=== PATIENT | female | born 1990 | race Caucasian/White ===

== ENCOUNTER 2019-12-13 11:00 | Outpatient (RCR) | payer OTHER, SELFPAY | END 2019-12-13 23:59 | disposition home or self-care (01) | LOC: DC 11:00 | PROVIDERS: PCP Obstetrics & Gynecology; Visit Provider Obstetrics & Gynecology | DX: Z71.3 Dietary counseling and surveillance (principal); O24.410 Gestational diabetes mellitus in pregnancy, diet controlled; Z3A.00 Weeks of gestation of pregnancy not specified | CPT/HCPCS: 97802; G0108 ==

== ENCOUNTER 2019-12-21 09:21 | Outpatient (RCR) | payer OTHER, SELFPAY | END 2020-01-12 23:59 | LOC: DC 09:21 | PROVIDERS: PCP Obstetrics & Gynecology; Visit Provider Obstetrics & Gynecology | DX: Z71.3 Dietary counseling and surveillance (principal) ==

== ENCOUNTER 2020-01-10 06:29 | Inpatient (IN) | payer OTHER, SELFPAY ==
[2020-01-10] VITALS (62 sets, daily range): BP systolic 107–174; BP diastolic 55–95; PULSE 72–110; TEMP 36.6–37.8; O2SAT 97–100; BMI 29.2
[2020-01-10] MEDS: Lactated Ringers 1,000 ML 50 ML IV (07:15)
[2020-01-10 07:16] LABS: Bedside Glucose 109 mg/dL (70-110)
[2020-01-10 07:51] LABS: Basophil# 0.04 X10^3/uL; Basophil% 0.4 % (0-1); Eosinophil# 0.17 X10^3/uL; Eosinophils% 1.7 % (0-5); Hematocrit 39.7 % (37-47); Hemoglobin 13.2 g/dL (12.0-15.0); Lymphocyte % 28.8 % (19-41); Mean Corp Hgb Conc 33.2 g/dL (32-36); Mean Corpuscular Hgb 28.1 pg (27.0-32.0); Mean Corpuscular Volume 84.5 fL (81-99); Mean Platelet Vol. 10.7 fl (6.2-12.0); Monocyte# 0.68 X10^3/uL; NRBC Flagged by Analyzer 0 % (0-5); Neutrophil # 5.97 X10^3/uL (2.7-7.7); Neutrophil % 61.4 % (47-70); Platelet Count 346 K/mm3 (150-450); RBC Distribution Width CV 15.6 % (11.6-14.6); RBC Distribution Width SD 47.9 fl (35.1-43.9); White Blood Count 9.7 K/mm3 (4.4-11.0)
[2020-01-10 07:54] LABS: ROM Internal Control Test YES-OK TO RESULT pt. (Internal QC)
[2020-01-10 07:56] LABS: ROM Patient Test POSITIVE (Negative)
[2020-01-10 08:00] LABS: AST(SGOT) 27 U/L (15-37); Alanine Aminotransfer ALT/SGPT 33 U/L (13-56); Creatinine, Serum 0.73 mg/dL (0.55-1.02); EST Glomerular Filtration Rate 101 mL/min (>60); Est Glom Filt Rate - Afr Amer 122 mL/min (>60); Estimated Creatinine Clearance 108.37 ml/min; Uric Acid 6.2 mg/dL (2.6-6.0)
[2020-01-10 08:02] LABS: Protein, Urine (Random) 69.1 mg/dL (<11.9); Protein:Creat Ratio 1795 mg/g CRE (0-200)
[2020-01-10 08:04] LABS: International Normalized Ratio 0.9
[2020-01-10 08:05] LABS: Partial Thromboplast Time 32.9 Seconds (24.1-36.2)
[2020-01-10 08:45] LABS: Group B Strep DNA By PCR Negative (Negative); Internal Control PASS; Probe Check PASS; Specimen Processing Control PASS
[2020-01-10] MEDS: Betamethasone/Betamethasone 30 MG/5 ML Vial 12 MG IM (08:54)
[2020-01-10] MEDS: Oxytocin 30 units/NS 500 ml 30 UNITS/500 ML IV.SOLN IV (09:10)
[2020-01-10 09:21] LABS: Bedside Glucose 122 mg/dL (70-110)
--- NOTE | 2020-01-10 10:20 | HP.PCM_ITS ---
- Problem List (1) 36 weeks gestation of Status: Acute (2) Rupture of membranes with clear amniotic fluid Status: Acute (3) Gestational diabetes Status: Acute Qualifiers: Gestational diabetes mellitus control: diet-controlled History Date of Admission: 01/10/20 Final EDIL: 02/06/20 Gestational age: 36 Weeks and 1 Days History of this : This is a 29 year-old, G [1], P [0], at 36.1 weeks gestational age that presented with S.R.O.M this morning at 0530. Continues to leak clear fluid. Positive movement. Denies any vaginal bleeding. complicated by GDM diet controlled. Allergies Sulfa (Sulfonamide Antibiotics) Allergy (Verified 01/10/20 07:22) Hives Home Medications: Home Medications Docosahexanoic Acid [ Dha] 200 mg PO DAILY 01/10/20 Ferrous Sulfate [Iron] 325 mg PO DAILY 01/10/20 Smoking Status: Never smoker Number of Fetus(es): 1 NST - FHR Rate Baby A Baseline: 140 Variability:: Moderate Accelerations:: 15 x 15 Decelerations:: None NST Reactive:: Yes FHR Category:: Category I Uterine Activity:: TOCO reading every 2-4 minutes History Past Pregnancies: Past Pregnancies Delivery Date Name GA/ Weeks Outcome Route Wt Infant Sex Labor Length Anesthesia Delivery Location Provider FOB Labs: A+ Rubella - Immune HB- neg HC- neg RPR- NR HIV- NR GC/CH- neg GBS- unknown COVID- 19 - unknown Review of Systems Constitutional: Denies: Anorexia Eyes: Denies: Blurred vision HEENT: Denies: Head Aches Cardiovascular: Denies: Chest Pain Respiratory: Denies: Cough, Shortness of Breath Gastrointestinal: Denies: Abdominal Pain Genitourinary: Denies: Dysuria Physical Exam Vitals: Vital Signs Temp Pulse BP Pulse Ox 98.8 F 92 118/75 98 01/10/20 10:01 01/10/20 10:01 01/10/20 10:01 01/10/20 10:01 General: Alert, Oriented x3, Cooperative, No apparent distress Cardiovascular: Regular rate Lungs: Normal air movement Abdomen: Soft, Non Tender, Gravid Neurological: Cranial nerves II-XII grossly intact, Deep Tendon Reflexes 2+/4 and Symmetrical Presentation: Cephalic Cervix Dilation (cm): 2 Station: -2 Effacement (%): 70 Assessment/Plan All Active Problems 36 weeks gestation of (Acute) Rupture of membranes with clear amniotic fluid (Acute) Gestational diabetes (Acute) This is a 29 year-old, G [1], P [0], at 36.1 weeks gestational age with S.R.O.M for clear fluid today at 0530 A/P Admit to labor and delivery Routine labs Rapid GBS GDM- follow protocol for bedside BS Celestone 12.0 mg IM x1 now Epidural when indicated Start PCN 5 million units IV now and continue with PCN 3 million units every 4 h ours until delivery- GBS unknown Start Pitocin infusion IV and titrate per protocol Dr. Barcenas notified and is collaborating physician until 11 am
--- NOTE | 2020-01-10 10:32 | OB.TRI.PN_ITS ---
Progress Notes Date of Service: 01/10/20 Progress Note: Patient seen at bedside. Denies any pain. Starting to feel contractions at times. CE- 2/70/-2 cervix soft NST reactive, Category 1 tracing A/P at 36.1 with SROM for clear fluid today at 0530 GDM- diet controlled Follow GDM policy Start Pitocin and titrate per protocol PCN 5 million units IV- running now Anticipate Laboratory Studies: Laboratory Tests 01/10/20 01/10/20 01/10/20 Range/Units 08:23 07:15 07:15 WBC (4.4-11.0) K/mm3 RBC (4.2-5.4) M/mm3 Hgb (12.0-15.0) g/dL Hct (37-47) % MCV (81-99) fL MCH (27.0-32.0) pg MCHC (32-36) g/dL RDW Std Deviation (35.1-43.9) fl RDW Coeff of Robert (11.6-14.6) % Plt Count (150-450) K/mm3 MPV (6.2-12.0) fl Immature Gran % (Auto) (0.0-0.9) % Neut % (Auto) (47-70) % Lymph % (Auto) (19-41) % [place] % (Auto) (0-10) % Eos % (Auto) (0-5) % Baso % (Auto) (0-1) % Absolute Neuts (auto) (2.0-7.7) X10^3/uL Absolute Lymphs (auto) (0.83-4.51) X10^3/uL Nucleated RBC % (0-5) % PT (11.7-14.9) SECONDS INR APTT (24.1-36.2) Seconds Creatinine (0.55-1.02) mg/dL Estim Creat Clear Calc ml/min Est GFR (MDRD) Af Amer (>60) mL/min Est GFR (MDRD) Non-Af (>60) mL/min Uric Acid (2.6-6.0) mg/dL AST (15-37) U/L ALT (13-56) U/L U Random Total Protein (<11.9) mg/dL Urine Creatinine (NO RANGE EST.) mg/dL Protein/Creatinin Ratio (0-200) mg/g CRE Vag Amniotic Fld Detect POSITIVE H (Negative) Group B Strep DNA Negative (Negative) Specimen Comment Not Reportable POC Glucose 122 H (70-110) mg/dL Blood Type Antibody Screen 01/10/20 01/10/20 01/10/20 Range/Units 07:15 07:15 07:15 WBC (4.4-11.0) K/mm3 RBC (4.2-5.4) M/mm3 Hgb (12.0-15.0) g/dL Hct (37-47) % MCV (81-99) fL MCH (27.0-32.0) pg MCHC (32-36) g/dL RDW Std Deviation (35.1-43.9) fl RDW Coeff of Robert (11.6-14.6) % Plt Count (150-450) K/mm3 MPV (6.2-12.0) fl Immature Gran % (Auto) (0.0-0.9) % Neut % (Auto) (47-70) % Lymph % (Auto) (19-41) % [place] % (Auto) (0-10) % Eos % (Auto) (0-5) % Baso % (Auto) (0-1) % Absolute Neuts (auto) (2.0-7.7) X10^3/uL Absolute Lymphs (auto) (0.83-4.51) X10^3/uL Nucleated RBC % (0-5) % PT 12.0 (11.7-14.9) SECONDS INR 0.9 APTT 32.9 (24.1-36.2) Seconds Creatinine 0.73 (0.55-1.02) mg/dL Estim Creat Clear Calc 108.37 ml/min Est GFR (MDRD) Af Amer 122 (>60) mL/min Est GFR (MDRD) Non-Af 101 (>60) mL/min Uric Acid 6.2 H (2.6-6.0) mg/dL AST 27 (15-37) U/L ALT 33 (13-56) U/L U Random Total Protein 69.1 H (<11.9) mg/dL Urine Creatinine 38.50 (NO RANGE EST.) mg/dL Protein/Creatinin Ratio 1795 H (0-200) mg/g CRE Vag Amniotic Fld Detect (Negative) Group B Strep DNA (Negative) Specimen Comment POC Glucose (70-110) mg/dL Blood Type Antibody Screen 01/10/20 01/10/20 01/10/20 Range/Units 07:15 07:15 07:11 WBC 9.7 (4.4-11.0) K/mm3 RBC 4.70 (4.2-5.4) M/mm3 Hgb 13.2 (12.0-15.0) g/dL Hct 39.7 (37-47) % MCV 84.5 (81-99) fL MCH 28.1 (27.0-32.0) pg MCHC 33.2 (32-36) g/dL RDW Std Deviation 47.9 H (35.1-43.9) fl RDW Coeff of Robert 15.6 H (11.6-14.6) % Plt Count 346 (150-450) K/mm3 MPV 10.7 (6.2-12.0) fl Immature Gran % (Auto) 0.700 (0.0-0.9) % Neut % (Auto) 61.4 (47-70) % Lymph % (Auto) 28.8 (19-41) % [place] % (Auto) 7.0 (0-10) % Eos % (Auto) 1.7 (0-5) % Baso % (Auto) 0.4 (0-1) % Absolute Neuts (auto) 6.0 (2.0-7.7) X10^3/uL Absolute Lymphs (auto) 2.80 (0.83-4.51) X10^3/uL Nucleated RBC % 0 (0-5) % PT (11.7-14.9) SECONDS INR APTT (24.1-36.2) Seconds Creatinine (0.55-1.02) mg/dL Estim Creat Clear Calc ml/min Est GFR (MDRD) Af Amer (>60) mL/min Est GFR (MDRD) Non-Af (>60) mL/min Uric Acid (2.6-6.0) mg/dL AST (15-37) U/L ALT (13-56) U/L U Random Total Protein (<11.9) mg/dL Urine Creatinine (NO RANGE EST.) mg/dL Protein/Creatinin Ratio (0-200) mg/g CRE Vag Amniotic Fld Detect (Negative) Group B Strep DNA (Negative) Specimen Comment POC Glucose 109 (70-110) mg/dL Blood Type A POSITIVE Antibody Screen NEGATIVE - Problem List (1) 36 weeks gestation of Status: Acute (2) Rupture of membranes with clear amniotic fluid Status: Acute (3) Gestational diabetes Status: Acute Qualifiers: Gestational diabetes mellitus control: diet-controlled
[2020-01-10 12:36] LABS: Bedside Glucose 100 mg/dL (70-110)
[2020-01-10] MEDS: Lactated Ringers 500 ML 999 ML IV (12:39)
--- NOTE | 2020-01-10 12:39 | PCM.PN.OB ---
Patient Problems: Active and Suspected Problems 36 weeks gestation of (Acute) Rupture of membranes with clear amniotic fluid (Acute) Gestational diabetes (Acute) Subjective: Patient seen at bedside. Breathing well through contractions. Starting to think about getting epidural. Objective: CE- /-1 Pitocin 10 mu/min Category 1 tracing, NST reactive - Physical Exam Vitals/I&O's: Vital Signs Temp Pulse BP Pulse Ox 98.0 F 79 139/81 H 97 01/10/20 11:58 01/10/20 11:58 01/10/20 11:58 01/10/20 11:58 Weight: 180 lb 12.465 oz Body Mass Index (BMI) 29.2 Intake and Output for Last 24 Hours 01/08/20 01/09/20 01/10/20 23:59 23:59 23:59 Intake Total 170.57 / 170.57 Balance 170.57 / 170.57 General: Alert, Oriented x3 Cardiovascular: Regular rate Abdomen: Soft, Non Tender Neurological: Cranial nerves II-XII grossly intact Laboratory Results 01/10/20 07:11: POC Glucose 109 01/10/20 07:15: WBC 9.7, RBC 4.70, Hgb 13.2, Hct 39.7, MCV 84.5, MCH 28.1, MCHC 33.2, RDW Std Deviation 47.9 H, RDW Coeff of Robert 15.6 H, Plt Count 346, MPV 10.7, Immature Gran % (Auto) 0.700, Neut % (Auto) 61.4, Lymph % (Auto) 28.8, [place] % (Auto) 7.0, Eos % (Auto) 1.7, Baso % (Auto) 0.4, Absolute Neuts (auto) 6.0, Absolute Lymphs (auto) 2.80, Nucleated RBC % 0 01/10/20 07:15: Blood Type A POSITIVE, Antibody Screen NEGATIVE 01/10/20 07:15: PT 12.0, INR 0.9, APTT 32.9 01/10/20 07:15: Creatinine 0.73, Estim Creat Clear Calc 108.37, Est GFR (MDRD) Af Amer 122, Est GFR (MDRD) Non-Af 101, Uric Acid 6.2 H, AST 27, ALT 33 01/10/20 07:15: U Random Total Protein 69.1 H, Urine Creatinine 38.50, Protein/Creatinin Ratio 1795 H 01/10/20 07:15: Group B Strep DNA Negative, Specimen Comment Not Reportable 01/10/20 07:15: Vag Amniotic Fld Detect POSITIVE H 01/10/20 08:23: POC Glucose 122 H 01/10/20 12:21: POC Glucose 100 Current Medications Acetaminophen (Tylenol) 325 - 650 mg PO Q4H PRN PRN PRN Reason: Pain Score 1-3/10 Al Hydroxide/Mg Hydroxide (Mylanta Ii) 15 - 30 ml PO Q4H PRN PRN PRN Reason: INDIGESTION Citric Acid/Sodium Citrate (Bicitra) 30 ml PO X1 PRN PRN Reason: Section Dextrose (D50w Syringe) 0 gm IV X1 PRN; Protocol PRN Reason: Hypoglycemia Fentanyl Citrate (Sublimaze (100mcg Ampule)) 25 - 50 mcg IV Q2H PRN PRN PRN Reason: Pain Score 4-10/10 Glucagon () 1 mg IM .X1 PRN PRN Reason: Hypoglycemia Lactated Ringer's () 500 mls @ 999 mls/hr IV .Q31M PRN PRN Reason: Epidural Lactated Ringer's () 500 mls @ 999 mls/hr IV .Q31M PRN PRN Reason: Corrective Measures Lactated Ringer's () 1,000 mls @ 50 mls/hr IV .Q20H [facility] Last Infusion: 01/10/20 09:08 Dose: 50 mls/hr Documented by: Oxytocin/Sodium Chloride () 30 units in 500 mls @ 2 mls/hr IV .Q250H [facility] Last Infusion: 01/10/20 11:38 Dose: 10 mls/hr Documented by: Ondansetron HCl (Zofran) 4 mg IV Q4H PRN PRN PRN Reason: NAUSEA Prochlorperazine Edisylate (Compazine Iv) 10 mg IV Q6H PRN PRN PRN Reason: NAUSEA Sodium Chloride () 10 - 40 ml IV X1 PRN PRN Reason: SALINE FLUSH Medical Necessity - Tobacco Use Smoking Status: Never smoker Assessment/Plan All Active Problems 36 weeks gestation of (Acute) Rupture of membranes with clear amniotic fluid (Acute) Gestational diabetes (Acute) A/P at 36.1 weeks gestation S.R.O.M today at 0530 Blood glucose levels- within normal range BPs ranging from 137-165/ 79-94- No headaches, vision changes, swelling Category 1 tracing NST reactive Pitocin at 10 mu/ min RAPID GBS - negative- discontinued PCN IV Epidural when indicated Anticipate
[2020-01-10] MEDS: fentaNYL-bupivacaine (epidural) 100 ML BAG EPIDURAL ×2 (13:38→18:16)
[2020-01-10] MEDS: Lactated Ringers 1,000 ML 200 ML IV (16:48)
[2020-01-10 18:36] LABS: Bedside Glucose 104 mg/dL (70-110)
[2020-01-10 18:36] LABS: Bedside Glucose 130 mg/dL (70-110)
--- NOTE | 2020-01-10 19:05 | PCM.PN.BLA ---
Progress Note Patient seen at bedside. Resting comfortably with epidural anesthesia. Denies any pain. Category 1 tracing CE- Dr. Sanchez updated. Plan is to recheck cervix in 30 minutes and begin pushing once complete STROKE Vital Signs/Narrative: Vital Signs Temp Pulse BP Pulse Ox 01/10/20 18:30 81 100 01/10/20 18:29 82 130/77 H 01/10/20 18:28 100.1 F H 01/10/20 17:27 82 139/75 H 01/10/20 16:33 89 99 01/10/20 16:32 89 128/73 H 01/10/20 15:26 79 108/55 L 01/10/20 15:25 98.8 F 98
[2020-01-10 21:06] LABS: Bedside Glucose 113 mg/dL (70-110)
[2020-01-10 21:06] LABS: Bedside Glucose 100 mg/dL (70-110)
[2020-01-10 21:11] LABS: Bedside Glucose 102 mg/dL (70-110)
[2020-01-10] MEDS: Oxytocin 30 units/NS 500 ml 30 UNITS/500 ML IV.SOLN 334 UNITS IV (21:58)
--- NOTE | 2020-01-10 22:12 | PCM.OPRPT ---
Vaginal Delivery Maternal Presentation: Spontaneous Rupture of Membranes Medical Reason for Induction: Preeclampsia, eclampsia, - - ROM at 36 weeks 1 Amniotic Membrane Rupture Type: Spontaneous at home Amniotic Fluid Description: Clear Final EDIL: 02/06/20 Final EDIL Source: [place] <20 weeks Gestational age: 36 Weeks and 1 Days Date of Procedure: 01/10/20 Pre-Operative Diagnosis: GDMA1, ruputure of membranes 36 weeks, PRE eclampsia without severe Post-Operative Diagnosis: same, live male infant Surgery/ Procedure Performed: Spontaneous Vaginal Delivery Type of Anesthesia: Epidural Description of Procedure: of live male born without complications at 9:55pm . head delivered with good maternal pushing efforts followed by shoulders with gentle downward traction. Infant was placed on mothers chest for immediate skin to skin and delayed cord clamping performed. 2nd degree vaginal laceration repaired with 2-0 vicryl and 3-0 rapide. Presentation: Vertex Placental Delivery Description: Spontaneous Placenta Disposition: [facility] Cord Vessel Description: 3 Vessels Nuchal Cord Compression: Without compression Cord Entanglement: None Drain: High to straight drain Estimated Blood Loss: 100 A gender: Male (1 minute): 7 (5 minute): 9 Episiotomy Description: None Laceration: Vaginal Extension/lac, 2nd degree Medications given after delivery: IV Pitocin Complications: None
[2020-01-11 00:12] VITALS: BP 117/66; PULSE 90; TEMP 36.7
[2020-01-11 00:41] LABS: Bedside Glucose 136 mg/dL (70-110)
[2020-01-11] MEDS: Ibuprofen 600 MG Tablet PO ×4 (00:50→18:42)
[2020-01-11 03:45] VITALS: BP 106/66; PULSE 78; RESP 16; TEMP 36.4
[2020-01-11 06:16] LABS: Bedside Glucose 146 mg/dL (70-110)
--- NOTE | 2020-01-11 07:15 | NURSING ---
pt reports never previously having flu shot
[2020-01-11 08:00] VITALS: BP 108/67; PULSE 85; RESP 16; TEMP 36.9
--- NOTE | 2020-01-11 08:32 | PCM.PN.OB ---
Patient Problems: Active and Suspected Problems 36 weeks gestation of (Acute) Rupture of membranes with clear amniotic fluid (Acute) Gestational diabetes (Acute) Subjective: Denies complaints - Physical Exam Vitals/I&O's: Vital Signs Temp Pulse Resp BP Pulse Ox 97.6 F L 78 16 106/66 98 01/11/20 03:45 01/11/20 03:45 01/11/20 03:45 01/11/20 03:45 01/10/20 22:13 Oxygen Delivery Method Room Air Weight: 180 lb 12.465 oz Body Mass Index (BMI) 29.2 Intake and Output for Last 24 Hours 01/09/20 01/10/20 01/11/20 23:59 23:59 23:59 Intake Total 3455.11 / 3455.11 333 / 333 Output Total 700 / 700 1700 / 1700 Balance 2755.11 / 2755.11 -1367 / -1367 General: Alert, Oriented x3 Abdomen: Soft, Non Tender, Non-Distended - ff mid & below umb Extremities: No Calf Tenderness Laboratory Results 01/10/20 07:15: Blood Type A POSITIVE, Antibody Screen NEGATIVE 01/10/20 07:15: Group B Strep DNA Negative, Specimen Comment Not Reportable 01/10/20 08:23: POC Glucose 122 H 01/10/20 12:21: POC Glucose 100 01/10/20 16:25: POC Glucose 104 01/10/20 17:25: POC Glucose 130 H 01/10/20 18:33: POC Glucose 113 H 01/10/20 19:25: POC Glucose 100 01/10/20 21:05: POC Glucose 102 01/11/20 00:15: POC Glucose 136 H 01/11/20 05:55: POC Glucose 146 H Current Medications Acetaminophen (Tylenol) 1,000 mg PO Q8H PRN PRN PRN Reason: Pain Score 1-3/10 Bisacodyl (Dulcolax) 10 mg RECTAL UD PRN PRN Reason: If no BM Dibucaine (Dibucaine) 1 applic TOPICAL TID PRN PRN; Protocol PRN Reason: Discomfort Hydrocortisone (Hytone) 1 applic TOPICAL TID PRN PRN; Protocol PRN Reason: Discomfort Ibuprofen (Motrin) 600 mg PO Q6H PRN PRN PRN Reason: Pain Score 1-3/10 Last Admin: 01/11/20 07:18 Dose: 600 mg Documented by: Influenza Virus Vaccine Quadrival (Flucelvax /Fluzone ) 0.5 ml IM .ONCE ONE Stop: 01/11/20 10:01 Methylergonovine Maleate (Methergine) 0.2 mg IM X1 PRN PRN Reason: Excess bleeding/uterine atony Ondansetron HCl (Zofran) 4 mg IV Q4H PRN PRN PRN Reason: Nausea Oxycodone HCl (Oxyir) 5 - 10 mg PO Q4H PRN PRN PRN Reason: Pain Score 4-10/10 Senna/Docusate Sodium (Senokot-S, Vaishnavi-Colace) 1 - 2 tablet PO DAILY PRN PRN PRN Reason: Constipation Simethicone (Mylicon) 80 mg PO PCHS PRN PRN Reason: Indigestion/Stomach pain Sodium Chloride () 5 - 15 ml IV UD PRN PRN Reason: SALINE FLUSH Medical Necessity - Tobacco Use Smoking Status: Never smoker Assessment/Plan All Active Problems 36 weeks gestation of (Acute) Rupture of membranes with clear amniotic fluid (Acute) Gestational diabetes (Acute) PPD#1 PreE - BP's normal since delivery, no preE symptoms Routine care GDM - repeat FBS in am tomorrow as today's BS was 30 minutes after eating cereal
[2020-01-11 12:00] VITALS: BP 116/83; PULSE 80; RESP 16; TEMP 36.6
[2020-01-11] MEDS: Acetaminophen 500 MG Tablet 1000 MG PO ×2 (14:33→23:07)
[2020-01-11 16:20] VITALS: BP 117/65; PULSE 76; RESP 16; TEMP 36.7
[2020-01-11 20:20] VITALS: BP 121/78; PULSE 77; RESP 16; TEMP 36.6
[2020-01-12 02:48] VITALS: BP 124/72; PULSE 92; RESP 16; TEMP 37.1
[2020-01-12] MEDS: Ibuprofen 600 MG Tablet PO ×2 (02:52→14:19)
[2020-01-12 05:45] LABS: Bedside Glucose 77 mg/dL (70-110)
--- NOTE | 2020-01-12 06:58 | DCINST_ITS ---
Discharge Diet: No Restrictions Discharge Activity: May Drive, May Shower May resume sexual activity in: 6 weeks Additional Instructions: If you experience any of the following, contact your healthcare provider. * Bleeding that soaks a pad every hour for 2 hours * Fever 100.4 or higher * Unrelieved incision or abdominal pain * Swelling, redness, discharge or bleeding from your incision or episiotomy site * Your incision begins to separate * Problems urinating (including inability to urinate or burning while urinating). * Visual changes * Severe headache * Flu-like symptoms * Pain or redness in one of both of your breasts * Pain, warmth, tenderness or swelling in your legs, especially the calf area * Frequent nausea and vomiting * Symptoms of depression or anxiety If you experience any of the following, call 911 or go to the nearest Emergency Room. * Chest pain * Problems breathing * Seizure activity * Partial or complete paralysis of a body part, slurred speech, weakness or drooping of the face, or a sudden inability to walk or hold your balance * * Call or message the office with our BP's on FridayJanuary 16. Allergies/Adverse Reactions: Allergies Sulfa (Sulfonamide Antibiotics) Allergy (Verified 01/10/20 07:22) Hives Medications to take at Discharge Docosahexanoic Acid [ Dha] 200 mg PO DAILY 01/10/20 Ferrous Sulfate [Iron] 325 mg PO DAILY 01/10/20 Acetaminophen [Tylenol] 1,000 mg PO Q8H PRN PRN tablet 01/12/20 Ibuprofen [Motrin] 600 mg PO Q6H PRN PRN tablet 01/12/20 Primary Care Physician: aKthy Vyas MD [Primary Care Provider] - Test Results: Test results from this visit will be discussed in further detail at your follow- up appointment, if applicable.
--- NOTE | 2020-01-12 06:58 | PCM.DCVAG ---
Discharge Diet: No Restrictions Discharge Activity: May Drive, May Shower May resume sexual activity in: 6 weeks Additional Instructions: If you experience any of the following, contact your healthcare provider. Bleeding that soaks a pad every hour for 2 hours Fever 100.4 or higher Unrelieved incision or abdominal pain Swelling, redness, discharge or bleeding from your incision or episiotomy site Your incision begins to separate Problems urinating (including inability to urinate or burning while urinating). Visual changes Severe headache Flu-like symptoms Pain or redness in one of both of your breasts Pain, warmth, tenderness or swelling in your legs, especially the calf area Frequent nausea and vomiting Symptoms of depression or anxiety If you experience any of the following, call 911 or go to the nearest Emergency Room. Chest pain Problems breathing Seizure activity Partial or complete paralysis of a body part, slurred speech, weakness or drooping of the face, or a sudden inability to walk or hold your balance Call or message the office with our BP's on FridayJanuary 16. Allergies/Adverse Reactions: Allergies Sulfa (Sulfonamide Antibiotics) Allergy (Verified 01/10/20 07:22) Hives Medications to take at Discharge Docosahexanoic Acid [ Dha] 200 mg PO DAILY 01/10/20 Ferrous Sulfate [Iron] 325 mg PO DAILY 01/10/20 Acetaminophen [Tylenol] 1,000 mg PO Q8H PRN PRN tablet 01/12/20 Ibuprofen [Motrin] 600 mg PO Q6H PRN PRN tablet 01/12/20 Primary Care Physician: Kathy yVas MD [Primary Care Provider] - Test Results: Test results from this visit will be discussed in further detail at your follow-up appointment, if applicable.
--- NOTE | 2020-01-12 06:59 | PCM.PN.OB ---
Patient Problems: Active and Suspected Problems 36 weeks gestation of (Acute) Rupture of membranes with clear amniotic fluid (Acute) Gestational diabetes (Acute) Subjective: No complaints. - Physical Exam Vitals/I&O's: Vital Signs Temp Pulse Resp BP Pulse Ox 98.7 F 92 16 124/72 H 98 01/12/20 02:48 01/12/20 02:48 01/12/20 02:48 01/12/20 02:48 01/10/20 22:13 Oxygen Delivery Method Room Air Weight: 180 lb 12.465 oz Body Mass Index (BMI) 29.2 Intake and Output for Last 24 Hours 01/10/20 01/11/20 01/12/20 23:59 23:59 23:59 Intake Total 3455.11 / 3455.11 333 / 333 Output Total 700 / 700 1700 / 1700 Balance 2755.11 / 2755.11 -1367 / -1367 General: Alert, Oriented x3 Abdomen: Soft, Non Tender, Non-Distended - ff mid & below umb Extremities: No Calf Tenderness Neurological: Cranial nerves II-XII grossly intact Laboratory Results 01/12/20 05:40: POC Glucose 77 Current Medications Acetaminophen (Tylenol) 1,000 mg PO Q8H PRN PRN PRN Reason: Pain Score 1-3/10 Last Admin: 01/11/20 23:07 Dose: 1,000 mg Documented by: Bisacodyl (Dulcolax) 10 mg RECTAL UD PRN PRN Reason: If no BM Dibucaine (Dibucaine) 1 applic TOPICAL TID PRN PRN; Protocol PRN Reason: Discomfort Hydrocortisone (Hytone) 1 applic TOPICAL TID PRN PRN; Protocol PRN Reason: Discomfort Ibuprofen (Motrin) 600 mg PO Q6H PRN PRN PRN Reason: Pain Score 1-3/10 Last Admin: 01/12/20 02:52 Dose: 600 mg Documented by: Methylergonovine Maleate (Methergine) 0.2 mg IM X1 PRN PRN Reason: Excess bleeding/uterine atony Ondansetron HCl (Zofran) 4 mg IV Q4H PRN PRN PRN Reason: Nausea Oxycodone HCl (Oxyir) 5 - 10 mg PO Q4H PRN PRN PRN Reason: Pain Score 4-10/10 Senna/Docusate Sodium (Senokot-S, Vaishnavi-Colace) 1 - 2 tablet PO DAILY PRN PRN PRN Reason: Constipation Simethicone (Mylicon) 80 mg PO PCHS PRN PRN Reason: Indigestion/Stomach pain Sodium Chloride () 5 - 15 ml IV UD PRN PRN Reason: SALINE FLUSH Medical Necessity - Tobacco Use Smoking Status: Never smoker Assessment/Plan All Active Problems 36 weeks gestation of (Acute) Rupture of membranes with clear amniotic fluid (Acute) Gestational diabetes (Acute) PPD#2 PreE - BP's normal, patient will check BP daily at home GDM - FBS this am normal D/c to hotel later today at baby in [place]
[2020-01-12] MEDS: Acetaminophen 500 MG Tablet 1000 MG PO ×2 (07:27→17:43)
[2020-01-12] MEDS: Senna/Docusate Sodium 1 Tablet PO (07:28)
[2020-01-12 07:38] VITALS: BP 124/86; PULSE 75; RESP 18; TEMP 36.7
[2020-01-12 14:00] VITALS: BP 132/85; PULSE 78; RESP 18; TEMP 36.4
== END 2020-01-12 18:00 | disposition home or self-care (01) | DRG 807 ==
PROVIDERS: Obstetrics & Gynecology; Admitting Provider Obstetrics & Gynecology; PCP Family Medicine; Referring Provider Obstetrics & Gynecology; Visit Provider Obstetrics & Gynecology
DX: O60.14X0 Preterm labor third trimester with preterm delivery third trimester, not applicable or unspecified (principal); O24.420 Gestational diabetes mellitus in childbirth, diet controlled; O69.81X0 Labor and delivery complicated by cord around neck, without compression, not applicable or unspecified; O14.04 Mild to moderate pre-eclampsia, complicating childbirth; O70.1 Second degree perineal laceration during delivery; Z3A.36 36 weeks gestation of pregnancy; Z37.0 Single live birth
CPT/HCPCS: 59025; 59050; 82565; 82570; 82962; 84112; 84156; 84450; 84460; 84550; 85025; 85610; 85730; 86850; 86900; 86901; 87081; 87653; 99218; J7120; 90686; G0378; J0702

== ENCOUNTER 2021-12-06 17:20 | Outpatient (CLI) | payer OTHER, SELFPAY ==
[2021-12-06 17:42] VITALS: BMI 28.3
[2021-12-06 17:44] VITALS: BP 139/85; PULSE 85
[2021-12-06 17:45] VITALS: PULSE 91; O2SAT 98
[2021-12-06 18:11] LABS: Absolute Lymphocyte Count 1.96 X10^3/uL (0.83-4.51); Absolute Neutrophil Count 6.1 X10^3/uL (2.0-7.7); Basophil# 0.02 X10^3/uL; Basophil% 0.2 % (0-1); Eosinophil# 0.19 X10^3/uL; Eosinophils% 2.1 % (0-5); Hematocrit 36.1 % (37-47); Hemoglobin 11.8 g/dL (12.0-15.0); Lymphocyte # 1.96 X10^3/ul (0.83-4.51); Lymphocyte % 22.1 % (19-41); Mean Corp Hgb Conc 32.7 g/dL (32-36); Mean Corpuscular Hgb 27.1 pg (27.0-32.0); Mean Corpuscular Volume 82.8 fL (81-99); Mean Platelet Vol. 9.6 fl (6.2-12.0); Monocyte# 0.63 X10^3/uL; Monocyte% 7.1 % (0-10); NRBC Flagged by Analyzer 0 % (0-5); Neutrophil # 6.05 X10^3/uL (2.7-7.7); Neutrophil % 68.3 % (47-70); Platelet Count 325 K/mm3 (150-450); RBC Distribution Width CV 15.9 % (11.6-14.6); RBC Distribution Width SD 48.2 fl (35.1-43.9); Red Blood Count 4.36 M/mm3 (4.2-5.4); White Blood Count 8.9 K/mm3 (4.4-11.0)
[2021-12-06] MEDS: BACITRACIN 15 GM Tube 1 APPLIC TOPICAL (18:54)
[2021-12-06 19:08] LABS: Fibrinogen 471 mg/dl (203-444); Prothrombin Time (Protime)PT. 13.3 SECONDS (11.7-14.9)
--- NOTE | 2021-12-14 10:08 | OB.TRI.NOTE ---
HPI - General General Date of Service: 12/06/21 Chief Complaint: fall HPI Narrative HERB MORAN, is a 1 at 34-6/7 weeks who fell at home. Patient denied being pushed. She arrived to labor and delivery for evaluation [facility] Home Medications ferrous sulfate 325 mg (65 mg iron) tablet 325 mg PO DAILY anemia 01/10/20 [History Last Taken 01/09/20] aspirin 81 mg capsule mg 12/06/21 [History Last Taken Unknown] progesterone 50 mg/mL intramuscular oil mg IM 12/06/21 [History Last Taken Unknown] Allergy/AdvReac Type Severity Reaction Status Date / Time Sulfa (Sulfonamide Allergy Hives Verified 12/06/21 17:42 Antibiotics) Social History Smoking Status: Never smoker History Elective abortions Hx Para 0 Spontaneous abortions Hx # Term Pregnancies Ectopic pregnancies Hx # Pregnancies Multiple births # of living children NST FHR Rate Baby A Baseline: 140 Variability:: Moderate Accelerations:: 15 x 15 Decelerations:: None NST Reactive:: Yes FHR Category:: Category I Uterine Activity:: irreg ctxs Assessment & Plan (1) 34 weeks gestation of : (2) Fall at home: PLAN: Plan 34 week multigravida s/p fall at home. FHTs reassuring. A+ blood type. D/[place] home w/ routine follow up or return prn.
== END 2021-12-06 21:45 | disposition home or self-care (01) ==
LOC: WPOUT 17:32 → WP 17:32
PROVIDERS: PCP Family Medicine; Referring Provider Obstetrics & Gynecology; Visit Provider Obstetrics & Gynecology
DX: Z04.3 Encounter for examination and observation following other accident (principal); Z3A.34 34 weeks gestation of pregnancy; Z79.82 Long term (current) use of aspirin
CPT/HCPCS: 36415; 59025; 59050; 85025; 85384; 85610; 85730; 86850; 86900; 86901; 99218; G0378

== ENCOUNTER 2022-01-04 06:50 | Inpatient (IN) | payer OTHER, SELFPAY ==
[2022-01-04] VITALS (35 sets, daily range): BP systolic 112–152; BP diastolic 60–101; PULSE 85–113; RESP 16; TEMP 36.7–37.6; O2SAT 97–100; BMI 28.7
[2022-01-04] MEDS: Lactated Ringers 1,000 ML 50 ML IV (07:40)
[2022-01-04 08:01] LABS: Absolute Lymphocyte Count 1.74 X10^3/uL (0.83-4.51); Absolute Neutrophil Count 8.3 X10^3/uL (2.0-7.7); Basophil# 0.02 X10^3/uL; Basophil% 0.2 % (0-1); Eosinophil# 0.17 X10^3/uL; Eosinophils% 1.5 % (0-5); Hematocrit 36.3 % (37-47); Lymphocyte # 1.74 X10^3/ul (0.83-4.51); Lymphocyte % 15.9 % (19-41); Mean Corp Hgb Conc 33.1 g/dL (32-36); Mean Corpuscular Hgb 27.6 pg (27.0-32.0); Mean Corpuscular Volume 83.6 fL (81-99); Mean Platelet Vol. 10.3 fl (6.2-12.0); Monocyte# 0.71 X10^3/uL; Monocyte% 6.5 % (0-10); NRBC Flagged by Analyzer 0 % (0-5); Neutrophil # 8.28 X10^3/uL (2.7-7.7); Neutrophil % 75.4 % (47-70); Platelet Count 290 K/mm3 (150-450); RBC Distribution Width CV 15.9 % (11.6-14.6); RBC Distribution Width SD 47.8 fl (35.1-43.9); Red Blood Count 4.34 M/mm3 (4.2-5.4)
[2022-01-04] MEDS: 0.9% Normal Saline Single 100 ML IV.SOLN. INTRA-UTER (08:07)
[2022-01-04] MEDS: Oxytocin 30 units/NS 500 ml 30 UNITS/500 ML IV.SOLN IV (08:16)
[2022-01-04 10:16] LABS: Bedside Glucose 84 mg/dL (74-106)
[2022-01-04] MEDS: LACTATED RINGERS 500 ML 999 ML IV (10:55)
[2022-01-04] MEDS: fentaNYL-bupivacaine (epidural) 100 ML BAG EPIDURAL (11:34)
[2022-01-04 12:00] LABS: Bedside Glucose 80 mg/dL (74-106)
[2022-01-04 14:35] LABS: Bedside Glucose 92 mg/dL (74-106)
[2022-01-04 14:35] LABS: Bedside Glucose 94 mg/dL (74-106)
--- NOTE | 2022-01-04 15:44 | HP.PCM.OB_ITS ---
[facility] - General General Date of Admission: 01/04/22 Date of Service: 01/04/22 Chief Complaint: induction HPI Narrative HERB MORAN, is a 31-year-old 2 para 0-1-0-1 who presents at 39 weeks with EDC of 01/11/2022 for induction of labor due to gestational diabetes. Is diet controlled and she has had excellent control. She also has a history of preeclampsia and she has had some increased edema and her blood pressures are trending up. However she does not have any official diagnosis of gestational hypertension or preeclampsia during this . was complicated to date by history of delivery, gestational diabetes class A1 and anemia. Maternal Data Information Final EDIL: 01/11/22 Gestational age: 41 PFSH [facility] Medical History (Updated 01/04/22 @ 15:[address] Gregoria Barcenas MD) Gestational diabetes History of premature rupture of membranes (PPROM) Pre-eclampsia Home Medications ferrous sulfate 325 mg (65 mg iron) tablet 325 mg PO DAILY anemia 01/10/20 [History Last Taken 01/09/20] aspirin 81 mg capsule mg 12/06/21 [History Last Taken Unknown] 01/04/22 [History Last Taken Unknown] Allergy/AdvReac Type Severity Reaction Status Date / Time Sulfa (Sulfonamide Allergy Hives Verified 01/04/22 07:15 Antibiotics) Social History Smoking Status: Never smoker History Elective abortions Hx Para 1 Spontaneous abortions Hx # Term Pregnancies Ectopic pregnancies Hx # Pregnancies Multiple births # of living children ROS Constitutional Constitutional: Denies fatigue, fever(s) or malaise Eyes Eyes: Denies change in vision ENT HEENT: Denies dizziness or headache(s) Cardiovascular Cardiovascular: Denies chest pain, dyspnea or lightheadedness Respiratory/Chest Respiratory/Chest: Denies cough or dyspnea Gastrointestinal Gastrointestinal: Denies change in bowel habits Genitourinary Genitourinary: Denies burning urination or genital lesions Integumentary Integumentary: Denies rash Neurologic Neurologic: Denies confusion, dizziness, headache(s), numbness or weakness Vital Signs Vital Signs Vital Signs: 01/04/22 07:56 01/04/22 07:56 01/04/22 07:57 Temperature Pulse Rate 102 H 92 Blood Pressure 141/91 H BP Systolic 141 BP Diastolic 91 Pulse Ox 01/04/22 07:57 01/04/22 08:11 01/04/22 08:51 Temperature 98.4 F Pulse Rate Blood Pressure 135/79 H BP Systolic 135 BP Diastolic 79 Pulse Ox 99 01/04/22 08:51 01/04/22 08:52 01/04/22 09:52 Temperature 98.4 F Pulse Rate 93 Blood Pressure 145/78 H BP Systolic 145 BP Diastolic 78 Pulse Ox 01/04/22 09:53 01/04/22 09:53 01/04/22 11:20 Temperature Pulse Rate 85 91 Blood Pressure BP Systolic BP Diastolic Pulse Ox 97 01/04/22 11:20 01/04/22 11:25 01/04/22 11:25 Temperature Pulse Rate 89 Blood Pressure 152/89 H BP Systolic 152 BP Diastolic 89 Pulse Ox 98 01/04/22 11:25 01/04/22 11:29 01/04/22 11:29 Temperature Pulse Rate 93 Blood Pressure 147/86 H BP Systolic 147 BP Diastolic 86 Pulse Ox 97 01/04/22 11:30 01/04/22 11:30 01/04/22 11:34 Temperature Pulse Rate 85 Blood Pressure 139/101 H BP Systolic 139 BP Diastolic 101 Pulse Ox 99 01/04/22 11:34 01/04/22 11:35 01/04/22 11:35 Temperature Pulse Rate 99 87 Blood Pressure BP Systolic BP Diastolic Pulse Ox 98 01/04/22 11:39 01/04/22 11:40 01/04/22 11:40 Temperature Pulse Rate 87 Blood Pressure 139/91 H BP Systolic 139 BP Diastolic 91 Pulse Ox 99 01/04/22 11:44 01/04/22 11:45 01/04/22 11:45 Temperature Pulse Rate 86 Blood Pressure 135/95 H BP Systolic 135 BP Diastolic 95 Pulse Ox 100 01/04/22 11:49 01/04/22 11:49 01/04/22 11:50 Temperature Pulse Rate 88 87 Blood Pressure 140/85 H BP Systolic 140 BP Diastolic 85 Pulse Ox 01/04/22 11:50 01/04/22 11:54 01/04/22 11:54 Temperature Pulse Rate 86 Blood Pressure 136/87 H BP Systolic 136 BP Diastolic 87 Pulse Ox 100 01/04/22 11:55 01/04/22 11:55 01/04/22 12:55 Temperature Pulse Rate 86 Blood Pressure 132/90 H BP Systolic 132 BP Diastolic 90 Pulse Ox 100 01/04/22 12:55 01/04/22 14:12 01/04/22 14:12 Temperature Pulse Rate 89 93 Blood Pressure 140/79 H BP Systolic 140 BP Diastolic 79 Pulse Ox 01/04/22 14:13 01/04/22 15:37 01/04/22 15:37 Temperature 98.1 F Pulse Rate 108 H Blood Pressure 126/68 H BP Systolic 126 BP Diastolic 68 Pulse Ox 01/04/22 15:37 Temperature 98.4 F Pulse Rate Blood Pressure BP Systolic BP Diastolic Pulse Ox Weight Weight: 80.739 kg Body Mass Index (BMI) 28.7 Physical Exam Const alert and no apparent distress General Appearance: cooperative HEENT normocephalic Resp normal respiratory effort Cardio regular rate GI soft to palpation GI Narrative: gravid, nontender, appropriate for gestational age Extremity no calf tenderness General Extremity: edema Skin no wounds Rashes: No rashes noted Psych activity/motor behavior normal Labs Labs Labs: Blood Type A POSITIVE Antibody Screen NEGATIVE Hct 36.3 % (37-47) L Hgb 12.0 g/dL (12.0-15.0) Group B Strep DNA Negative (Negative) Rhogam given: No Assessment & Plan (1) 39 weeks gestation of : PLAN: Estimated weight is less than 4500 g clinically and pelvis clinically adequate to expect vaginal delivery. Risk benefits and alternatives to induction of labor him discussed with patient, her questions were answered to her satisfaction and she desired to proceed. High catheter was placed this morning by Zahira Torres CNM. Pitocin was initiated. Expectant management for vaginal delivery (2) GDM, class A1: (3) Multiparity:
[2022-01-04] MEDS: Oxytocin 30 units/NS 500 ml 30 UNITS/500 ML IV.SOLN 334 UNITS IV (16:10)
--- NOTE | 2022-01-04 16:29 | EX.PCM.OBRPT ---
Assessment & Plan (1) (spontaneous vaginal delivery): Maternal Data Information Final EDIL: 01/11/22 Gestational age: 41 Vaginal Delivery Operative Information Date of Procedure: 01/04/22 Pre-Operative Diagnosis: labor Post-Operative Diagnosis: same Surgery / Procedure Performed: Spontaneous Vaginal Delivery Type of Anesthesia: Epidural Special Medications: none Drain: High to straight drain Estimated Blood Loss: 300 Time of Delivery: 16:07 Findings Description of Procedure: A vigorous male was delivered SD over a second-degree perineal laceration. A loose nuchal cord ?1 was easily reduced. The remainder the was delivered with maternal pushing and gentle traction only in less than 15 seconds. The Pitocin infusion was initiated for active management of the third stage. The cord was clamped and cut after 1 minute. The infant was attended to by the waiting nursing staff. The placenta was delivered spontaneously and intact. The cervix and vagina were intact. The second-degree perineal laceration was repaired with 3-0 Vicryl suture in a running standard fashion. Sponge and needle counts were correct. A vaginal sweep was completed by me. Presentation: SD Amniotic Membrane Rupture Type: Artificial Amniotic Fluid Description: Clear Placental Delivery Description: Expressed Placenta Disposition: [facility] Cord Vessel Description: 3 Vessels Cord Entanglement: Around neck x 1, loose Nuchal Cord Compression: Without compression Infant A Gender: Male (Madden) (1 minute): 8 (5 minute): 9 Delayed Cord Clamping: Yes Post Vaginal Delivery Medications Given After Delivery: IV Pitocin Episiotomy Description: None Laceration: 2nd degree Complication Complications: None Admit VTE Documentation VTE Present on Admission: No VTE Pharm Prophylaxis Ordered: No Reason Prophylaxis Not Ordered: Procedure Not Indicated
[2022-01-04 18:36] LABS: Bedside Glucose 141 mg/dL (74-106)
[2022-01-05] VITALS (13 sets, daily range): BP systolic 114–135; BP diastolic 72–77; PULSE 80–97; RESP 14–16; TEMP 36.2–37.7; O2SAT 98–99
[2022-01-05] MEDS: Ibuprofen 600 MG Tablet PO ×3 (00:11→16:47)
[2022-01-05] MEDS: Acetaminophen 500 MG Tablet 1000 MG PO (05:06)
[2022-01-05 06:56] LABS: Bedside Glucose 99 mg/dL (74-106)
--- NOTE | 2022-01-05 08:15 | PCM.PN.OB ---
Subjective Subjective Pain well controlled. Average lochia. no other c/o Objective Data Objective Data Vital Signs: Vital Signs Temp Pulse Resp BP Pulse Ox O2 Del Method 97.2 F L 84 16 135/77 H 100 Room Air 01/05/22 05:08 01/05/22 05:09 01/05/22 05:07 01/05/22 05:09 01/04/22 16:27 01/05/22 05:07 Oxygen Delivery Method Room Air Weight: 80.739 kg Body Mass Index (BMI) 28.7 Intake & Output: Intake and Output for Last 24 Hours 01/03/22 01/04/22 01/05/22 23:59 23:59 23:59 Intake Total 2042.40 / 2042.40 Output Total 1900 / 1900 Balance 142.40 / 142.40 Lab / Micro Data Result Diagrams: 01/04/22 07:40 Labs: Laboratory Results - last 24 hr 01/04/22 07:40: Blood Type A POSITIVE, Antibody Screen NEGATIVE 01/04/22 09:50: POC Glucose 84 01/04/22 11:38: POC Glucose 80 01/04/22 12:54: POC Glucose 92 01/04/22 14:14: POC Glucose 94 01/04/22 18:14: POC Glucose 141 H 01/05/22 06:35: POC Glucose 99 Micro: Microbiology 01/04/22 07:40 Nasal Secretion SARS-CoV-2 Antigen (Rapid) - Final Physical Exam Const alert and no apparent distress Narrative: Fundus firm, below umbilicus. Assessment & Plan (1) (spontaneous vaginal delivery): PLAN: day 1 status post vaginal delivery. is breast-feeding and doing well. Patient would like to be discharged home later today if is discharged home by pediatrics.
--- NOTE | 2022-01-05 08:17 | PCM.DC.SUM ---
Providers Date of Admission: 01/04/22 Date of Discharge: 01/05/22 Primary Care Physician: Dr. Kathy Vyas MD Reason For Visit: VAGINAL DELIVERY Diagnosis Discharge Diagnosis (1) (spontaneous vaginal delivery): Status: Acute Code(s): O80 - Encounter for full-term uncomplicated delivery Plan: day 1 status post vaginal delivery. is breast-feeding and doing well. Patient would like to be discharged home later today if is discharged home by pediatrics. Medications at Discharge Home Medications ferrous sulfate 325 mg (65 mg iron) tablet 325 mg PO DAILY anemia 01/10/20 aspirin 81 mg capsule mg 12/06/21 01/04/22 Hospital Course Operations None Procedures None Summary of Care Provided Hospital Course: Patient was admitted on 01/04/2022 for induction of labor due to gestational diabetes. Induction of labor with High and Pitocin. Artificial rupture membranes. Patient had a vaginal delivery on 01/04/2022 without complications. By day 1 she was doing well and desired discharge home. Weight / BMI Weight Weight: 80.739 kg Body Mass Index (BMI) 28.7 ABG / Lab / Microbiology Data Result Diagrams: 01/04/22 07:40 Laboratory: Laboratory Results - last 24 hr 01/04/22 07:40: Blood Type A POSITIVE, Antibody Screen NEGATIVE 01/04/22 09:50: POC Glucose 84 01/04/22 11:38: POC Glucose 80 01/04/22 12:54: POC Glucose 92 01/04/22 14:14: POC Glucose 94 01/04/22 18:14: POC Glucose 141 H 01/05/22 06:35: POC Glucose 99 Microbiology: Microbiology 01/04/22 07:40 Nasal Secretion SARS-CoV-2 Antigen (Rapid) - Final D/C Instructions May resume sexual activity in: 6 weeks Please Follow Up With: Gregoria Barcenas MD When: Follow up with our office in 1-2 and 6 weeks or as needed. [phone] Meaningful Use Info Meaningful Use Diagnoses (Choose all that apply): None applicable Discharge Plan Admission Admit Date/Time: 01/04/22 06:50 Primary Reason for Your Visit: Vaginal delivery Attending Provider: Alessandra Clemens Primary Care Provider: Kathy Vyas Discharge Orders/Prescriptions Prescriptions: No Action ferrous sulfate 325 MG tablet 325 mg PO DAILY aspirin 81 mg Capsule Referrals / Follow Up: Kathy Vyas MD [Primary Care Provider] - Disposition Disposition (needs filled in before D/C Order can be placed): Home, Self Care
[2022-01-05] MEDS: Senna/Docusate Sodium 1 Tablet PO (09:56)
[2022-01-05] MEDS: FLU VACC QS2022-23(6MOS UP)/PF 60 MCG/0.5 ML SYRINGE IM (09:56)
== END 2022-01-05 18:00 | disposition home or self-care (01) | DRG 807 ==
PROVIDERS: Admitting Provider Obstetrics & Gynecology; PCP Family Medicine; Referring Provider Obstetrics & Gynecology; Visit Provider Obstetrics & Gynecology
DX: O24.429 Gestational diabetes mellitus in childbirth, unspecified control (principal); Z37.0 Single live birth; O69.81X0 Labor and delivery complicated by cord around neck, without compression, not applicable or unspecified; O70.1 Second degree perineal laceration during delivery; Z20.822 Contact with and (suspected) exposure to COVID-19; Z79.82 Long term (current) use of aspirin; Z79.899 Other long term (current) drug therapy; Z3A.39 39 weeks gestation of pregnancy
CPT/HCPCS: 59025; 59050; 82962; 85025; 86850; 86900; 86901; 87426; 99218; J7120; 90686; G0378

== ENCOUNTER 2022-09-16 09:54 | Emergency (ER) | payer BC, SELFPAY ==
[2022-09-16 09:55] VITALS: BP 133/100; PULSE 86; RESP 16; TEMP 36.6; O2SAT 99; BMI 27.4
--- NOTE | 2022-09-16 10:05 | EKG12_ITS ---
Test Reason : CP WITH COUGH Blood Pressure : / mmHG Vent. Rate : 084 BPM Atrial Rate : 084 BPM P-R Int : 146 ms QRS Dur : 092 ms QT Int : 356 ms P-R-T Axes : 033 045 015 degrees QTc Int : 420 ms Normal sinus rhythm with sinus arrhythmia Normal ECG Confirmed by ANIRUDH ACEVEDO, NIURKA ([id number]), magazine editor HARLEY CARRANZA ([id number]) on 09/18/2022 9:14:03 AM Referred By: Confirmed By:NIURKA OLEARY MD
--- NOTE | 2022-09-16 10:05 | ED.VIS.CHEST ---
HPI History of Present Illness Chief Complaint: Chest Other Narrative Narrative: Patient has had a chronic cough for couple of months, today she woke up having pleuritic chest pain. She has no fevers or chills she has no back pain or tearing sensation. She has mostly retrosternal lower chest pain. It is sharp and stabbing [facility] Medical History (Updated 09/16/22 @ 10:[address] Leonel Zelaya MD) Gestational diabetes History of premature rupture of membranes (PPROM) Pre-eclampsia (spontaneous vaginal delivery) Home Medications clindamycin 1.2 % (1 % base)-benzoyl peroxide 5 % topical gel 1 applic topical DAILY 09/16/22 [History Last Taken Unknown] desogestrel-e.estradiol 0.15 mg-0.02 mg(21)/e.estrad 0.01 mg(5) tablet (Kariva (28)) 1 tab PO DAILY 09/16/22 [History Last Taken Unknown] naproxen 500 mg tablet (Naprosyn) 500 mg PO BID PRN pain 5 days #10 tabs 09/16/22 [Rx Last Taken Unknown] Allergy/AdvReac Type Severity Reaction Status Date / Time Sulfa (Sulfonamide Allergy Hives Verified 09/16/22 09:57 Antibiotics) Social History Smoking Status: Never smoker ROS ROS ED ROS Narrative Past medical history: Reviewed, unremarkable Medications: Reviewed Social history: Noncontributory Review of systems: All systems negative except as indicated General: No fever Eyes: No visual changes ENT: No upper airway congestion, normal voice Neck: No neck pain Cardiovascular: Chest pain as in HPI Respiratory: No shortness of breath or cough Gastrointestinal: No abdominal pain, nausea vomiting or diarrhea Genitourinary: No dysuria Musculoskeletal: Denies myalgias no difficulty with ambulation Skin: No rash Neurological: No memory loss, confusion or any focal weakness EXAM Physical Exam Narrative Exam Narrative: Physical exam General: Well nourished, Well developed, No Acute Distress Head: Normocephalic, Atraumatic Eyes: Conjunctiva not pale ENT: Moist mucous membranes Neck: Supple, Nontender, No lymphadenopathy Cardiovascular: Regular rate, Regular rhythm Chest wall: I cannot reproduce any kind of chest wall pain. Respiratory: No distress, CTA bilaterally Abdomen: Soft, Nontender, Nondistended Back: Nontender, Normal Inspection. Negative for: CVA tenderness Extremities: Nontender, No edema Skin: Normal color, No rash Neurological: Alert, Normal Strength, Normal Sensation Psychological: Normal affect Const Vital Signs: 09/16/22 09:55 09/16/22 09:55 09/16/22 09:55 Temperature 97.8 F Temperature Source Temporal Pulse Rate 86 Respiratory Rate 16 Respiratory Effort Normal Non-Labored Normal Non-Labored Respiratory Pattern Normal Normal Blood Pressure 133/100 H Blood Pressure Mean 111 Pulse Ox 99 Oxygen Delivery Method Room Air MDM MDM MDM Narrative Medical decision making narrative: Independent interpretation of test Telemetry: Sinus rhythm with a rate in the 80s without ectopy Chest x-ray 2 view read by me as normal Patient was seen by me in the emergency department. I discussed with who is also in the room. Initially I was worried about a pulmonary embolism, she traveled to [place] and has pleuritic chest pain. This is unfounded based on testing. I have considered other differential diagnoses however I was able to exclude all of these through a thorough history and physical exam as well as laboratory testing: myocardial infarction, aortic dissection, esophageal rupture, pneumothorax, musculoskeletal emergencies, upper abdominal pathologies such as pancreatitis, cholecystitis or choledocholithiasis, as well as ruptured bowel. She likely has costochondritis or pleurisy either way I will treat with NSAIDs for home. At this time the patient does not meet admission criteria. Lab Data Labs: Laboratory Results - last 24 hr 09/16/22 09/16/22 09/16/22 10:10 10:10 10:10 WBC 13.4 H RBC 4.61 Hgb 12.6 Hct 38.6 MCV 83.7 MCH 27.3 MCHC 32.6 RDW Std Deviation 41.5 RDW Coeff of Robert 13.5 Plt Count 367 MPV 8.5 Immature Gran % (Auto) 0.300 Neut % (Auto) 81.2 H Lymph % (Auto) 13.7 L Gregg % (Auto) 4.0 Eos % (Auto) 0.5 Baso % (Auto) 0.3 Absolute Neuts (auto) 10.9 H Absolute Lymphs (auto) 1.84 Nucleated RBC % 0 D-Dimer Quant (PE/DVT) 0.29 Sodium 136 Potassium 4.1 Chloride 106 Carbon Dioxide 23.0 Anion Gap 7 BUN 10 Creatinine 0.68 Estim Creat Clear Calc 113.25 Est GFR (MDRD) Af Amer 129 Est GFR (MDRD) Non-Af 107 BUN/Creatinine Ratio 14.6 Glucose 92 Calcium 9.4 Total Bilirubin 0.20 AST 11 L ALT 19 Alkaline Phosphatase 78 Troponin I High Sens < 3 L Total Protein 8.2 Albumin 3.6 Globulin 4.6 H Albumin/Globulin Ratio 0.8 L EKG Initial EKG: Comments: Normal sinus rhythm with a rate of 84. Normal GA and QTc intervals. No ischemic changes. Normal EKG Interpreted by emergency doctor Discharge Plan Triage Chief Complaint: Chest Other ED Provider: Leonel Zelaya Dx/Rx/DC Orders Clinical Impression: Chest pain, Pleurisy Instructions: Pleurisy Prescriptions: New naproxen [Naprosyn] 500 mg tablet 500 mg PO BID PRN (Reason: pain) 5 Days Qty: 10 0RF No Action desog-e.estradiol/e.estradiol [Kariva (28)] 0.15-0.02 mgx21 /0.01 mg x 5 tablet 1 tab PO DAILY Label Comments: TAKE 1 TABLET BY MOUTH EVERY DAY clindamycin-benzoyl peroxide 1.2 %(1 % base) -5 % gel 1 applic TOPICAL DAILY Label Comments: APPLY EVERY DAY TO AREAS OF ACNE. CAN BLEACH CLOTHING UNTIL DRY. Primary Care Provider: Kathy Vyas Referrals: Kathy Vyas MD [Primary Care Provider] - 3-5 Days Disposition Disposition: Home, Self Care
--- NOTE | 2022-09-16 10:07 | NURSING ---
NO OLD EKGS
[2022-09-16 10:19] LABS: Absolute Lymphocyte Count 1.84 X10^3/uL (0.83-4.51); Absolute Neutrophil Count 10.9 X10^3/uL (2.0-7.7); Basophil# 0.04 X10^3/uL; Basophil% 0.3 % (0-1); Eosinophil# 0.07 X10^3/uL; Eosinophils% 0.5 % (0-5); Hematocrit 38.6 % (37-47); Hemoglobin 12.6 g/dL (12.0-15.0); Lymphocyte # 1.84 X10^3/ul (0.83-4.51); Lymphocyte % 13.7 % (19-41); Mean Corp Hgb Conc 32.6 g/dL (32-36); Mean Corpuscular Hgb 27.3 pg (27.0-32.0); Mean Corpuscular Volume 83.7 fL (81-99); Mean Platelet Vol. 8.5 fl (6.2-12.0); Monocyte# 0.53 X10^3/uL; NRBC Flagged by Analyzer 0 % (0-5); Neutrophil # 10.88 X10^3/uL (2.7-7.7); Neutrophil % 81.2 % (47-70); Platelet Count 367 K/mm3 (150-450); RBC Distribution Width CV 13.5 % (11.6-14.6); RBC Distribution Width SD 41.5 fl (35.1-43.9); Red Blood Count 4.61 M/mm3 (4.2-5.4); White Blood Count 13.4 K/mm3 (4.4-11.0)
--- NOTE | 2022-09-16 10:20 | RAD_ITS ---
STUDY: X-RAY CHEST REASON FOR EXAM: Female, 32 years old. cp TECHNIQUE: PA and lateral views of the chest. COMPARISON: None. FINDINGS: The lungs are clear and expanded. Scattered calcified granulomas. There is no demonstrated pleural abnormality. Normal size heart. Normal mediastinum and juancarlos. Normal visualized pulmonary arteries. Normal visualized aortic arch and descending thoracic aorta. Normal visualized thoracic spine. Normal visualized ribs, clavicles, and shoulders. There is no demonstrated abnormality of the visualized soft tissue structures of the upper abdomen. RAD/Chest PA and Lateral IMPRESSION: Normal x-ray examination of the chest. Electronically Signed: Hemant Solorzano MD at 10:50 EDT ,
[2022-09-16 10:29] LABS: D-Dimer Quantitative (DVT/PE) 0.29 FEU/ug/m (0.27-0.49)
[2022-09-16 10:37] LABS: ALB/GLOB Ratio 0.8 RATIO (0.9-2.4); AST(SGOT) 11 U/L (15-37); Alanine Aminotransfer ALT/SGPT 19 U/L (13-56); Albumin, Serum 3.6 g/dL (3.2-5.0); Alkaline Phosphatase 78 U/L (45-117); Anion Gap 7 (5-15); BUN 10 mg/dL (7-18); BUN/Creat Ratio 14.6 RATIO (10-20); Calcium,Total 9.4 mg/dL (8.5-10.1); Chloride 106 mmol/L (98-107); Creatinine, Serum 0.68 mg/dL (0.55-1.02); EST Glomerular Filtration Rate 107 mL/min (>60); Est Glom Filt Rate - Afr Amer 129 mL/min (>60); Estimated Creatinine Clearance 113.25 ml/min; Globulin 4.6 g/dL (2.2-4.2); Glucose 92 mg/dL (74-106); Potassium 4.1 mmol/L (3.5-5.1); Protein, Total 8.2 g/dL (6.4-8.2); Sodium Level 136 mmol/L (136-145); Troponin-I HS < 3 pg/mL (3.0-54.0)
[2022-09-16 10:55] VITALS: BP 127/69; PULSE 72; RESP 15; O2SAT 98
== END 2022-09-16 10:56 | disposition home or self-care (01) ==
PROVIDERS: Emergency Provider Emergency Medicine; PCP Family Medicine; Visit Provider Emergency Medicine
DX: R09.1 Pleurisy (principal); R07.9 Chest pain, unspecified
CPT/HCPCS: 71046; 80053; 84484; 85025; 85379; 93005; 99284; A4216

== ENCOUNTER 2024-11-15 10:35 | Outpatient (CLI) | payer BC, SELFPAY ==
[2024-11-15 10:44] VITALS: RESP 16; TEMP 36.5
[2024-11-15 10:46] VITALS: BMI 31.5
[2024-11-15] MEDS: Lactated Ringers 1,000 ML 125 ML IV (11:20)
--- NOTE | 2024-11-15 12:49 | OB.TRI.HP_ITS ---
HPI - General General Date of Admission: 11/15/24 Date of Service: 11/15/24 Chief Complaint: breech HPI Narrative HERB MORAN, is a 34 F who presents Maternal Data Information Final EDIL: 12/02/24 Gestational age: 37 4/7 [facility] Medical History (Updated 11/15/24 @ 12:[address] Gregoria Barcenas MD) (spontaneous vaginal delivery) History of premature rupture of membranes (PPROM) Pre-eclampsia Gestational diabetes Home Medications ?Medication ?Instructions ?Recorded ?Last Taken ?Type clindamycin 1.2 % (1 % 1 applic topical DAILY 09/16 Unknown History base)-benzoyl peroxide 5 % topical gel Held on 11/15/24. Instructions: Order Completed desogestrel-e.estradiol 0.15 1 tab PO DAILY 09/16/22 U nknown History mg-0.02 mg(21)/e.estrad 0.01 mg(5) tablet (Kariva (28)) Held on 11/15/24. Instructions: Order Completed naproxen 500 mg tablet (Naprosyn) 500 mg PO BID PRN pa in 5 days #10 09/16/22 Unknown Rx Held on 11/15/24. tabs Instructions: Ordered aspirin 81 mg tablet 81 mg PO DAILY 11/15/2407/06 History ferrous sulfate 325 mg (65 mg 325 mg PO DAILY 11/15/24 Unknown History iron) tablet (Feosol) vit no.95-ferrous 1 tab PO DAILY 11/15/2407/06 History fumarate 28 mg-folic acid 800 mcg tablet () vitamin no.102-iron 90 cap PO 11/15/24 Unknow n History mg-folate 1 mg-dha 200 mg capsule Allergy/AdvReac Type Severity Reaction Status Date / Time Sulfa (Sulfonamide Allergy Hives Verified 11/15/24 11:06 Antibiotics) Social History Smoking Status: Never smoker History Elective abortions Hx Para 1 Spontaneous abortions Hx # Term Pregnancies Ectopic pregnancies Hx # Pregnancies Multiple births # of living children ROS ROS Narrative no vb/lof. Few irr eg ctxs NST FHR Rate Baby A Baseline: 150 Variability:: Moderate Accelerations:: 15 x 15 Decelerations:: None NST Reactive:: Yes Uterine Activity:: irreg ctxs q 4-7 min Assessment & Plan (1) Complete breech: PLAN: Response and alternatives to external cephalic version were discussed with patient, her questions were answered to her satisfaction and consent was obtained. Procedure note: A timeout was performed. heart tones were category 1. We attempted a forward roll x 2 without any significant movement.. The breech was easily elevated but we could not get any return of the skull. heart tones were dopplered in between and were normal. Patient was given some time to recover. A backwards roll was then attempted and again there is no significant movement of the breech or the head. Patient tolerated procedure well. Procedure performed by Dr. Clemens and I. No complications. NST and follow up in office as scheduled. Plan 39+ week c/s unless converts to vtx. Patient states understanding and agreement w/ plan. (2) 37 weeks gestation of :
[2024-11-15 14:53] VITALS: BP 135/64; PULSE 90; RESP 16; TEMP 36.6; O2SAT 99
--- NOTE | 2024-11-15 18:52 | PCM.PN.OB ---
Subjective Subjective Patient has been having contractions since ECV. She reports some contractions prior to the ECV as well, but the contractions now feel more noticeable to her. At times they are infrequent and other times become more frequent. No vb or lof. She offers no other concerns. Objective Data Objective Data Vital Signs: Vital Signs Temp Pulse Resp BP Pulse Ox 97.8 F 90 16 135/64 H 99 11/15/24 14:53 11/15/24 14:53 11/15/24 14:53 11/15/24 14:53 11/15/24 14:53 Weight: 195 lb 6.4 oz Body Mass Index (BMI) 31.5 Intake & Output: Intake and Output for Last 24 Hours 11/13/24 11/14/24 11/15/24 23:59 23:59 23:59 Intake Total 935.42 / 935.42 Balance 935.42 / 935.42 Physical Exam Const alert and no apparent distress General Appearance: comfortable GI non-tender Narrative: Cvx 1 cm, thick, posterior NST FHR Rate Baby A Baseline: 130 Variability:: Moderate Accelerations:: 15 x 15 Decelerations:: None NST Reactive:: Yes FHR Category:: Category I Uterine Activity:: irregular pattern Assessment & Plan (1) 37 weeks gestation of : (2) Complete breech: PLAN: Patient had ECV today. Had contractions prior to ECV, but they became more noticeable after the ECV. Irregular ctx's per patient and on toco. Patient was monitored for 6 hours after the ECV. Cvx remains 1, thick, posterior. FHT reactive and reassuring. No vaginal bleeding. She lives about 10 minutes from the hospital. Discussed precautions on when to call tonight or return to the hospital. Discharge instructions reviewed. Patient comfortable going home and questions answered.
== END 2024-11-15 19:05 | disposition home or self-care (01) ==
LOC: WPOUT 10:40 → WP 10:41
PROVIDERS: PCP Family Medicine; Referring Provider Advanced Practice Midwife; Visit Provider Advanced Practice Midwife
DX: O32.1XX0 Maternal care for breech presentation, not applicable or unspecified (principal); O62.8 Other abnormalities of forces of labor; Z3A.37 37 weeks gestation of pregnancy; Z87.59 Personal history of other complications of pregnancy, childbirth and the puerperium
CPT/HCPCS: 96360; 96361 ×6; 59025; 59050; 59412; 76815; 99221; G0378

== ENCOUNTER 2024-11-28 09:29 | Inpatient (IN) | payer BC, SELFPAY ==
[2024-11-28] VITALS (19 sets, daily range): BP systolic 111–155; BP diastolic 46–97; PULSE 63–83; RESP 12–20; TEMP 36.6–36.9; O2SAT 96–100; BMI 32.1
--- OUTSIDE RECORDS SUMMARY | 2024-11-28 09:17 | XMS RPT_ITS | CCD ---
Author Organization [facility] CliniSymi Care Team Providers Care Manager Costing Name Role Phone Min Bermeo DO Primary Care Provider Dorys tootie Vyas MD, Kathy Medel Primary Care Provider Kathy Vyas MD Primary Care Provider Kathy Vyas MD Primary Care Provider Dr. Kathy Vyas MD Primary Care Provider Tara Parks CNM Attending Provider [phone] Tara Parks CNM Referring Provider Dante Waite Admitting Unavailable Dante Waite Attending Unavailable Miedel, Kathy Primary Care Unavailable Tara Parks Referring Unavailable Miedel, Kathy Primary Care Unavailable Tara Parks Attending Unavailable MIEDEL, KATHY E Primary Care Unavailable DANTE WAITE Attending Unavailable MIEDEL, KATHY E Primary Care Unavailable DANTE WAITE Attending Unavailable MIEDEL, KATHY E Primary Care Unavailable TARA PARKS Referring Unavailable MIEDEL, KATHY E Primary Care Unavailable DANTE WAITE Attending Unavailable MIEDEL, KATHY E Primary Care Unavailable DANTE WAITE Attending Unavailable MIEDEL, KATHY E Primary Care Unavailable DANTE WAITE Attending Unavailable MIEDEL, KATHY E Primary Care Unavailable DANTE WAITE Referring Unavailable MACARENA PEREZ Attending Unavailable MIEDEL, KATHY E Primary Care Unavailable DANTE WAITE Referring Unavailable MIEDEL, KATHY E Primary Care Unavailable DANTE WAITE Attending Unavailable MIEDEL, KATHY E Primary Care Unavailable DANTE WAITE Referring Unavailable DANTE WAITE Attending Unavailable MIEDEL, KATHY E Primary Care Unavailable DANTE WAITE Referring Unavailable MIEDEL, KATHY E Primary Care Unavailable DANTE WAITE Attending Unavailable MIEDEL, KATHY E Primary Care Unavailable DANTE WAITE Referring Unavailable DANTE WAITE Attending Unavailable MIEDEL, KATHY E Primary Care Unavailable DANTE WAITE Attending Unavailable MIEDEL, KATHY E Primary Care Unavailable DANTE WAITE Attending Unavailable KASEY MARTINES Attending Unavail able MIEDEL, KATHY E Primary Care Unavailable MIEDEL, KATHY E Primary Care Unavailable TARA PARKS Attending Unavailable MIEDEL, KATHY E Primary Care Unavailable DANTE WAITE Referring Unavailable MIEDEL, KATHY E Primary Care Unavailable FRANNY, MAI Referring Unavailable MIEDEL, KATHY E Primary Care Unavailable FRANNY, MAI Referring Unavailable DANTE WAITE Attending Unavailable MIEDEL, KATHY E Primary Care Unavailable FRANNY, MAI Referring Unavailable MIEDEL, KATHY E Primary Care Unavailable SELF Referring Unavailable FRANNY, MAI Attending Unavailable Allergies Allergy Classification Reported Allergen(s) Allergy Type Date of Onset Reaction(s) Facility Sulfonamides (antibiotic) (1 source) Sulfonamides (Antibiotic) Drug Allergy [facility] Work Phone: (20 sources) Sulfonamides (Antibiotic); Translations: [SULFA (SULFONAMIDE ANTIBIOTICS)] Drug Intolerance [facility] Work Phone: (4 sources) Sulfonamides (Antibiotic) Allergy to substance 2 [facility] (1 source) Sulfonamides (Antibiotic) Drug allergy (disorder) 5 [facility] Repository Medications Current Medications Medication Drug Class(es) Dates Sig (Normalized) Sig (Original) aspirin 81 mg oral tablet (20 sources) Platelet Aggregation Inhibitor, Nonsteroidal Anti-inflammatory Drug Start: 11-15-2024 take 1 tablet by mouth once daily Aspirin 81 mg tablet Active 81 mg PO DAILY November 15, 2024 12:00am Start: 04-19-2024 take 1 tablet by garrett th once daily aspirin, enteric coated (ECOTRIN LOW STRENGTH) 81 mg EC tablet Indications: with uncertain dates, antepartum ([facility]) , Encounter for supervision of normal in multigravida ([facility]) Take 1 tablet by mouth once daily. 90 tablet 3 04/19/2024 Active Start: 12-06-2021 Aspirin Active MG December 06, 2021 12:00am Start: 06-26-2021 End: 01-17-2022 BABY ASPIRIN ORAL Start: 06-26-2021 BABY ASPIRIN O RAL benzoyl peroxide 0.05 mg/mg / clindamycin phosphate 0.012 mg/mg topical gel (20 sources) Lincosamide Antibacterial Start: 09-16-2022 Clindamycin-Benzoyl Peroxide 1.2 %(1 % base) -5 % gel Active 1 NMA TOPICAL DAILY September 16, 2022 12:00am On Hold: Order Completed Start: 09-16-2022 Clindamycin-Be nzoyl Peroxide Active 1 APPLIC TOPICAL DAILY September 16, 2022 12:00am clindamycin-rodger oyl peroxide 1.2 %(1 % base) -3.75 % gel Apply to affected area as needed. Active End: 01-17-2022 Clindamycin-Benzoyl Peroxide 1-5 % gel Apply to affected area twice daily. 0 01/17/2022 Discontinued (Other) Comment on above: Apply to affected ar ea twice daily. Desogestrel / Ethinyl Estradiol (19 sources) Progestin, Estrogen Start: 10-10-2023 End: 04-19-2024 take 1 tablet by mouth once daily Desogestrel-Ethinyl Estradiol (KARIVA, 28,) 0.15-0.02 mgx21 /0.01 mg x 5 per tablet Take 1 tablet by mouth once daily. 84 tablet 3 10/10/2023 04/19/2024 Discontinued Start: 10-10-2023 take 1 tablet by garrett th once daily Desogestrel-Ethinyl Estradiol (KARIVA, 28,) 0.15-0.02 mgx21 /0.01 mg x 5 per tablet Take 1 tablet by mouth once daily. 84 tablet 3 10/10/2023 Active Start: 10-10-2023 End: 10-10-2023 take 1 tablet by mouth once daily Desogestrel-Ethinyl Estradiol (KARIVA, 28,) 0.15-0.02 mgx21 /0.01 mg x 5 per tablet Take 1 tablet by mouth once daily. 84 tablet 0 10/10/2023 10/10/2023 Discontinued Start: 09-19-2023 End: 10-10-2023 take 1 tablet by mouth once daily Desogestrel-Ethinyl Estradiol (KARIVA, 28,) 0.15-0.02 mgx21 /0.01 mg x 5 per tablet Take 1 tablet by mouth once daily. 84 tablet 0 09/19/2023 10/10/2023 Discontinued Start: 09-19-2023 take 1 tablet by garrett th once daily Desogestrel-Ethinyl Estradiol (KARIVA, 28,) 0.15-0.02 mgx21 /0.01 mg x 5 per tablet Take 1 tablet by mouth once daily. 84 tablet 0 09/19/2023 Active Start: 07-07-2023 End: 09-19-2023 take 1 tablet by mouth once daily Desogestrel-Ethinyl Estradiol (KARIVA, 28,) 0.15-0.02 mgx21 /0.01 mg x 5 per tablet Take 1 tablet by mouth once daily. 28 tablet 2 07/07/2023 09/19/2023 Discontinued Start: 07-07-2023 take 1 tablet by garrett th once daily Desogestrel-Ethinyl Estradiol (KARIVA, 28,) 0.15-0.02 mgx21 /0.01 mg x 5 per tablet Take 1 tablet by mouth once daily. 28 tablet 2 07/07/2023 Active Start: 09-16-2022 take 0.15 tablet by mouth once daily Desog-E.Estradiol/E.Estradiol (Kariva (28)) 0.15-0.02 mgx21 /0.01 mg x 5 tablet Active 1 {tbl} PO DAILY September 16, 2022 12:00am On Hold: Order Completed Start: 09-16-2022 take 0.15 tablet by mouth once daily Desog-E.Estradiol/E.Estradiol (Kariva (28)) 0.15-0.02 mgx21 /0.01 mg x 5 tablet Active 1 TABLET PO DAILY September 16, 2022 12:00am Start: 07-04-2022 End: 07-07-2023 take 1 tablet by mouth once daily Desogestrel-Ethinyl Estradiol (KARIVA, 28,) 0.15-0.02 mgx21 /0.01 mg x 5 per tablet Take 1 tablet by mouth once daily. 28 tablet 12 07/04/2022 07/07/2023 Discontinued Start: 07-04-2022 take 1 tablet by garrett th once daily Desogestrel-Ethinyl Estradiol (KARIVA, 28,) 0.15-0.02 mgx21 /0.01 mg x 5 per tablet Take 1 tablet by mouth once daily. 28 tablet 12 07/04/2022 Active Comment on above: Take 1 tablet by garrett th once daily. ferrous sulfate 325 mg oral tablet (20 sources) Start: 11-15-2024 take 1 tablet by mouth once daily Ferrous Sulfate (Feosol) 325 mg (65 mg iron) tablet Active 325 mg PO DAILY November 15, 2024 12:00am Start: 01-10-2020 take 325 mg by mouth once daily Ferrous Sulfate Active 325 MG PO DAILY January 10, 2020 12:00am ferrous sulfate EC 324 mg (65 mg iron) TbE Take 324 mg by mouth. Active End: 10-10-2023 ferrous sulfate (IRON ORAL) Take by mouth. 10/10/2023 Discontinued End: 10-10-2023 ferrous sulfate (IRON ORAL) Take by mouth. 0 10/10/2023 Discontinued ferrous sulfate (IRON ORAL) Take by mouth. 0 Active Comment on above: Take by mouth. fluconazole 150 mg oral tablet (1 source) Azole Antifungal Start: 03-07-20 End: 03-07-20 take 1 tablet by mouth once fluconazole (DIFLUCAN) 150 mg tablet Take 1 tablet by mouth one time only for 1 dose. 1 tablet 0 03/07/2023 03/07/2023 Active Comment on above: Take 1 tablet by garrett th one time only for 1 dose. Iron (1 source) Start: 11-16-19 Pnv [id number]-Tloo-[id number]-Dha 90 mg iron- 1 mg-200 mg capsule Active NMA PO November 15, 2024 12:00am naproxen 500 mg oral tablet (2 sources) Nonsteroidal Anti-inflammatory Drug Start: 09-17-19 take 1 tablet by mouth twice daily as needed for pain Naproxen (Naprosyn) 500 mg tablet Active 500 mg PO TWICE A DAY as needed for pain 10 5 0 September 16, 2022 12:00am On Hold: Ordered norethindrone 0.35 mg oral tablet (7 sources) Start: 02-15-20 End: 07-05-19 take 1 tablet by mouth once daily Norethindrone, Contraceptive, 0.35 mg tablet TAKE 1 TABLET BY MOUTH EVERY DAY 28 tablet 5 03/06/2022 07/04/2022 Discontinued Comment on above: Take 1 tablet by garrett th once daily. TAKE 1 TABLET BY GARRETT TH EVERY DAY Pnv Cmb#95-Ferrous Fumarate-Fa () 28 mg iron- 800 mcg tablet (1 source) Start: 11-16-19 Pnv Cmb#95-Ferrous Fumarate-Fa () 28 mg iron- 800 mcg tablet Active 1 {tbl} PO DAILY November 15, 2024 12:00am (1 source) Start: 01-05-20 Active January 04, 2022 12:00am vitamins no.2 ( VITAMIN NO.2 ORAL) (20 sources) vitamin s no.2 ( VITAMIN NO.2 ORAL) Take by mouth once daily. Active progesterone 50 mg/ml injectable solution (1 source) Progesterone Start: 12-07-19 Progesterone (Progesterone In Oil) 50 mg/mL Oil Active MG IM December 06, 2021 12:00am Completed/Discontinued Medications Medication Drug Class(es) Dates Sig (Normalized) Sig (Original) 1 ml HYDROXYprogesterone caproate (custodial) 250 mg/ml injection (1 source) Start: 2 End: HYDROXYprogesterone caproate (PF) 250 mg injection (LINDA) Start: 08-17-2021 End: 08-17-2021 HYDROXYprogesterone caproate (PF) 250 mg injection (LINDA) Polyethylene Glycols (20 sources) End: 10-10-2023 polyethylene glycol 3350 ([place] RALAX ORAL) Take by mouth. 10/10/2023 Discontinued End: 10-10-2023 polyethylene glycol 3350 ([place] RALAX ORAL) Take by mouth. 0 10/10/2023 Discontinued polyethylene gly col 3350 (MIRALAX ORAL) Take by mouth. 0 Active Comment on above: Take by mouth. Irkgtgeo-Bo-Srp-Fe- FA ( VITAMIN) tab (20 sources) End: 10-10-2023 take 1 tablet by mouth once Bakcoaoa-Tv-Gfj-Fe-FA ( VITAMIN) tab Take 1 tablet by mouth. 10/10/2023 Discontinued End: 10-10-2023 take 1 tablet by mouth once Hizkbmbs-Kj-Ixi-Fe-FA ( VITAMIN) tab Take 1 tablet by mouth. 0 10/10/2023 Discontinued take 1 tablet by garrett th once Sgllvzzh-Qu-Kmw-Fe-FA ( VITAMIN) tab Take 1 tablet by mouth. 0 Active Comment on above: Take 1 tablet by garrett th. PROGESTERONE IN OIL INTRAMUSC. (17 sources) Start: 08-17-2021 End: 01-17-2022 PROGESTERONE IN OIL INTRAMUSC. Start: 08-17-2021 PROGESTERONE I N OIL INTRAMUSC. Problems Active Problems Problem Classification Problem Date Documented Date Episodic/Chronic Administrative/social admission (2 sources) Multiparous; Translations: [Problems related to multiparity] Episodic E Codes: Fall (2 sources) Fall in home; Translations: [Unspecified fall, initial encounter] Episodic Fever of unknown origin (2 sources) Fever; Translations: [Fever, unspecified] Onset: 09-27-2024 09-27-2024 Episodic Genitourinary symptoms and ill-defined conditions (3 sources) Dysuria; Translations: [Dysuria] Onset: 09-27-2024 03-10-2023 Episodic Immunizations and screening for infectious disease (3 sources) Requires diphtheria, tetanus and pertussis vaccination; Translations: [Encounter for immunization] Onset: 09-15-2024 Episodic Inflammatory diseases of female pelvic organs (1 source) Acute vaginitis; Translations: [Acute vaginitis] 03-07-2023 Episodic Malposition; malpresentation (14 sources) Breech presentation; Translations: [Maternal care for breech presentation, not applicable or unspecified] Onset: 11-10-2024 11-10-2024 Episodic Nonspecific chest pain (3 sources) Chest pain; Translations: [Chest pain, unspecified] 09-16-2022 Episodic Other complications of (16 sources) Anemia during - baby not yet delivered; Translations: [Anemia complicating , second trimester] Onset: 10-09-2021 10-09-2021 Chronic Other complications of (20 sources) Anemia of ; Translations: [Anemia complicating , second trimester] Onset: 10-09-2021 Resolved: 01-17-2022 01-17-2022 Chronic Other complications of (1 source) Anemia complicating , third trimester; Translations: [Anemia during in third trimester (HCC)] Onset: 09-16-2024 Chronic Other complications of (1 source) Supervision of high risk , unspecified, third trimester; Translations: [Supervision of high risk in third trimester (HCC)] Onset: 11-17-2024 Episodic Other female genital disorders (1 source) Vaginal discharge; Translations: [Other specified noninflammatory disorders of vagina] Episodic Other female genital disorders (1 source) Vaginal odor; Translations: [Other specified noninflammatory disorders of vagina] Episodic Other lower respiratory disease (2 sources) Cough; Translations: [Acute cough] Episodic Other lower respiratory disease (2 sources) Dyspnea on exertion; Translations: [Other forms of dyspnea] Episodic Pleurisy; pneumothorax; pulmonary collapse (2 sources) Pleurisy; Translations: [Pleurisy] 09-16-2022 Episodic Polyhydramnios and other problems of amniotic cavity (2 sources) Amniotic membrane finding; Translations: [Rupture of membranes with clear amniotic fluid] Episodic Residual codes; unclassified (1 source) Gestation period, 15 weeks; Translations: [15 weeks gestation of ] Episodic Residual codes; unclassified (2 sources) Gestation period, 18 weeks; Translations: [18 weeks gestation of ] Episodic Residual codes; unclassified (1 source) Gestation period, 22 weeks; Translations: [22 weeks gestation of ] Episodic Residual codes; unclassified (1 source) Gestation period, 26 weeks; Translations: [26 weeks gestation of ] Episodic Residual codes; unclassified (2 sources) Gestation period, 30 weeks; Translations: [30 weeks gestation of ] Episodic Residual codes; unclassified (2 sources) Gestation period, 32 weeks; Translations: [32 weeks gestation of ] Episodic Residual codes; unclassified (4 sources) Gestation period, 34 weeks; Translations: [34 weeks gestation of ] Episodic Residual codes; unclassified (5 sources) Gestation period, 36 weeks; Translations: [36 weeks gestation of ] Episodic Residual codes; unclassified (1 source) Gestation period, 35 weeks; Translations: [35 weeks gestation of ] Episodic Residual codes; unclassified (4 sources) Gestation period, 37 weeks; Translations: [37 weeks gestation of ] Episodic Residual codes; unclassified (2 sources) Gestation period, 38 weeks; Translations: [38 weeks gestation of ] Episodic Residual codes; unclassified (3 sources) Gestation period, 39 weeks; Translations: [39 weeks gestation of ] 01-04-2022 Episodic Residual codes; unclassified (2 sources) 34 weeks gestation of ; Translations: [ state, incidental] Onset: 10-27-2024 Episodic Residual codes; unclassified (1 source) 39 weeks gestation of ; Translations: [ state, incidental] Episodic Residual codes; unclassified (1 source) Gestation period, 7 weeks; Translations: [Less than 8 weeks gestation of ] 04-19-2024 Episodic Residual codes; unclassified (2 sources) Gestation period, 9 weeks; Translations: [9 weeks gestation of ] 05-04-2024 Episodic Residual codes; unclassified (1 source) Gestation period, 11 weeks; Translations: [11 weeks gestation of ] 05-18-2024 Episodic Residual codes; unclassified (2 sources) Gestation period, 13 weeks; Translations: [13 weeks gestation of ] 06-02-2024 Episodic Residual codes; unclassified (1 source) Gestation period, 16 weeks; Translations: [16 weeks gestation of ] 06-23-2024 Episodic Residual codes; unclassified (1 source) Gestation period, 20 weeks; Translations: [20 weeks gestation of ] 07-21-2024 Episodic Residual codes; unclassified (1 source) Gestation period, 24 weeks; Translations: [24 weeks gestation of ] 08-18-2024 Episodic Residual codes; unclassified (1 source) Gestation period, 28 weeks; Translations: [28 weeks gestation of ] 09-15-2024 Episodic Residual codes; unclassified (1 source) 38 weeks gestation of ; Translations: [38 weeks gestation of (HCC)] Onset: 11-24-2024 Episodic Residual codes; unclassified (1 source) 37 weeks gestation of ; Translations: [37 weeks gestation of (HCC)] Onset: 11-17-2024 Episodic Residual codes; unclassified (1 source) 36 weeks gestation of ; Translations: [36 weeks gestation of (HCC)] Onset: 11-10-2024 Episodic Residual codes; unclassified (1 source) 32 weeks gestation of ; Translations: [32 weeks gestation of (HCC)] Onset: 10-13-2024 Episodic Residual codes; unclassified (1 source) 30 weeks gestation of ; Translations: [30 weeks gestation of (HCC)] Onset: 09-27-2024 Episodic Residual codes; unclassified (1 source) 28 weeks gestation of ; Translations: [28 weeks gestation of (HCC)] Onset: 09-15-2024 Episodic Unclassified (20 sources) [facility] Education - COMMON Onset: 04-19-2024 04-19-2024 Unclassified (20 sources) Education - [place] Onset: 04-19-2024 04-19-2024 Past or Other Problems Problem Classification Problem Date Documented Da te Episodic/Chronic Diabetes or abnormal glucose tolerance complicating ; childbirth; or the puerperium (20 sources) Impaired glucose tolerance in ; Translations: [Abnormal glucose complicating ] Onset: 11-16-2019 Resolved: 01-17-2022 Episodic Other complications of (20 sources) History of gestational diabetes mellitus; Translations: [Supervision of with other poor reproductive or obstetric history, unspecified trimester] Onset: 05-24-2021 Resolved: 10-17-2021 05-29-2021 Episodic Other complications of (20 sources) History of pre-eclampsia; Translations: [Supervision of with other poor reproductive or obstetric history, unspecified trimester] Onset: 05-24-2021 Resolved: 01-17-2022 05-29-2021 Episodic Other complications of (20 sources) H/O: premature delivery; Translations: [Supervision of other high risk pregnancies, unspecified trimester] Onset: 05-24-2021 Resolved: 01-17-2022 05-24-2021 Episodic Other complications of (20 sources) High risk ; Translations: [Supervision of other high risk pregnancies, first trimester] Onset: 05-29-2021 Resolved: 01-17-2022 05-29-2021 Episodic Other complications of (3 sources) Supervision of with other poor reproductive or obstetric history, unspecified trimester; Translations: [Hx of preeclampsia, prior , currently ([facility])] Onset: 04-19-2024 Episodic Other complications of (1 source) Supervision of high risk , unspecified, second trimester; Translations: [Supervision of high risk in second trimester ([facility])] Onset: 07-21-2024 Episodic Other and delivery including normal (20 sources) Normal ; Translations: [Encounter for supervision of other normal , second trimester] Onset: 04-19-2024 Episodic Other screening for suspected conditions (not mental disorders or infectious disease) (4 sources) Patient encounter status; Translations: [Encounter for other specified screening] Onset: 08-18-2024 Episodic Other skin disorders (20 sources) Acne; Translations: [Acne, unspecified] Onset: 04-19-2011 Resolved: 01-17-2022 04-19-2011 Episodic Residual codes; unclassified (1 source) 24 weeks gestation of ; Translations: [24 weeks gestation of ([facility])] Onset: 08-18-2024 Episodic Residual codes; unclassified (2 sources) 9 weeks gestation of ; Translations: [9 weeks gestation of ([facility])] Onset: 06-02-2024 Episodic Residual codes; unclassified (1 source) Less than 8 weeks gestation of ; Translations: [7 weeks gestation of ] Onset: 05-04-2024 Episodic Results Test Name Value Interpretation Reference Range Facil ity URINE OB DIP B/Oon Glucose Ql (U) Negative Neg mg/dL [facility] Interpretation and review of laboratory results Normal [facility] Protein.monoclonal (U) [Mass/Vol] Negative Neg mg/dL [facility] HISTORY PHYSICALon HISTORY PHYSICAL HNO ID: [id number] Author: DANTE WAITE MD Service: ? Author Type: Physician Type: H&P Filed: 11/18/2024 09:11 Note Text: Pre-Op History and Physical HPI: The patient is a 34 year old female presenting for pre-operative visit. She is scheduled for , for breech on 11/30/24. Procedure discussed along with risks, benefits and complications. Other alternatives discussed for management. Consent form signed? Yes. PAST MEDICAL HISTORY Diagnosis Date Acne Anemia Gestational diabetes mellitus, class A1 ([facility]) 11/22/2019 Hx of preeclampsia, prior , currently ([facility]) 04/19/2024 Preeclampsia ([facility]) PAST SURGICAL HISTORY Procedure Laterality Date EXTRACTION ERUPTED TOOTH/EXR 08/2022 NONE Current Outpatient Medications Medication Sig Dispense Refill ferrous sulfate EC 324 mg (65 mg iron) TbEC Take 324 mg by mouth. aspirin, enteric coated (ECOTRIN LOW STRENGTH) 81 mg EC tablet Take 1 tablet by mouth once daily. 90 tablet 3 vitamins no.2 ( VITAMIN NO.2 ORAL) Take by mouth once daily. clindamycin-benzoyl peroxide 1.2 %(1 % base) -3.75 % gel Apply to affected area as needed. No current facility-administered medications for this visit. ALLERGIES: Sulfa (Sulfonamide Antibiotics) PERSONAL HISTORY: Social History Tobacco Use Smoking status: Never Smokeless tobacco: Never Vaping Use Vaping status: Never Used Substance Use Topics Alcohol use: No Drug use: No FAMILY HISTORY: FAMILY HISTORY Problem Relation Age of Onset No Known Problems Mother Hypertension Father No Known Problems Sister No Known Problems Sister Diabetes Maternal Grandmother Alzheimer's Disease Maternal Grandmother Hypertension Maternal Grandfather Leukemia Maternal Grandfather Heart Paternal Grandmother [place] Stroke Paternal Grandmother Heart Paternal Grandfather 48 Cancer Paternal Grandfather Skin other (Brain Tumor (Cancer)) Other Maternal Great Aunt No Known Problems Son REVIEW OF SYMPTOMS: GENERAL: denies fevers or chills ENDOCRINOLOGY: has not been on steroids Cardiology : denies palpitations or chest pain Respiratory: denies SOB or cough Hematology: denies history of prolonged bleeding or easy bruising or VTE Allergy: Denies history of personal or family history of allergy to anesthesia PHYSICAL EXAMINATION: VITALS: Blood pressure 122/76, pulse 94, height 165.1 cm (5' 5), weight 88.9 kg (196 lb), last menstrual period 02/28/2024, SpO2 98%. GENERAL: The patient is well nourished, well hydrated in no acute distress. , The patient is oriented to time, place, and person. NECK: Supple. No lynphadenopathy, normal thyroid, no thyromegaly. LUNGS: Clear to auscultation bilaterally. no wheezes, rhonchi or rales HEART: Regular rate and rhythm, Normal heart sounds, and No murmurs or gallops GENITALIA: Normal external genitalia, Urethral meatus normal, Bladder nontender, normal vagina and normal vaginal tone, normal cervix, normal uterus, size and consistency, normal adnexa without masses or tenderness, and perineum WN IMPRESSION: Estimated Date of Delivery: 12/04/24 Breech PLAN: The risks/benefits/altern atives and personal involved for the planned were reviewed with the patient. Her questions were answered to her satisfaction and she desires to proceed. Consent was signed. I reviewed with her postop instructions and expectations. I have reviewed and updated past medical and surgical history, medications and allergies Dante Waite M.D. Normal [facility] OB Triage Physician Noteon 0 11-15-2024 OB Triage Physician Note [facility] Medical Records Department [address] [place] [address] OB Triage Physician Note 11/15/24 1249 MR#: [id number] Acct: [id number] Name: HERB MORAN Rep #: [id number] : 1990 34 From: Dante Waite MD PCP: Dr. Kathy Vyas MD Status:REG CLI Y Location: [place] [address] HPI - General General Date of Admission: 11/15/24 Date of Service: 11/15/24 Chief Complaint: breech HPI Narrative HERB MORAN, is a 34 F who presents Maternal Data Information Final EDIL: 12/02/24 Gestational age: 37 4/7 PFSH [facility] Medical History (Updated 11/15/24 @ 12:[address] Dante Waite MD) (spontaneous vaginal delivery) History of premature rupture of membranes (PPROM) Pre-eclampsia Gestational diabetes Home Medications ???Medication ???Instructions ???Recorded ???Last Taken ???Type clindamycin 1.2 % (1 % 1 applic topical DAILY 09/16/22 Un known History base)-benzoyl peroxide 5 % topical gel Held on 11/15/24. Instructions: Order Completed desogestrel-e.estradi ol 0.15 1 tab PO DAILY 09/16/22 Unknown Hi story mg-0.02 mg(21)/e.estrad 0.01 mg(5) tablet (Kariva (28)) Held on 11/15/24. Instructions: Order Completed naproxen 500 mg tablet (Naprosyn) 500 mg PO BID PRN pain 5 days #10 09/16/22 Unknown Rx Held on 11/15/24. tabs Instructions: MD Ordered aspirin 81 mg tablet 81 mg PO DAILY 11/15/24 11/14/24 H istory ferrous sulfate 325 mg (65 mg 325 mg PO DAILY 11/15/24 Unknown H istory iron) tablet (Feosol) vit no.95-ferrous 1 tab PO DAILY 11/15/24 11/14/24 H istory fumarate 28 mg-folic acid 800 mcg tablet () vitamin no.102-iron 90 cap PO 11/15/24 Unknown History mg-folate 1 mg-dha 200 mg capsule Allergy/AdvReac Type Severity Reaction Status Date / Time Sulfa (Sulfonamide Allergy Hives Verified 11/15/24 11:06 Antibiotics) Social History Smoking Status: Never smoker History Elective abortions Hx Para 1 Spontaneous abortions Hx # Term Pregnancies Ectopic pregnancies Hx # Pregnancies Multiple births # of living children ROS ROS Narrative no vb/lof. Few irr eg ctxs NST FHR Rate Baby A Baseline: 150 Variability:: Moderate Accelerations:: 15 x 15 Decelerations:: None NST Reactive:: Yes Uterine Activity:: irreg ctxs q 4-7 min Assessment Plan (1) Complete breech: PLAN: Response and alternatives to external cephalic version were discussed with patient, her questions were answered to her satisfaction and consent was obtained. Procedure note: A timeout was performed. heart tones were category 1. We attempted a forward roll x 2 without any significant movement.. The breech was easily elevated but we could not get any return of the skull. heart tones were dopplered in between and were normal. Patient was given some time to recover. A backwards roll was then attempted and again there is no significant movement of the breech or the head. Patient tolerated procedure well. Procedure performed by Dr. Clemens and Regis. No complications. NST and follow up in office as scheduled. Plan 39+ week c/s unless converts to vtx. Patient states understanding and agreement w/ plan. (2) 37 weeks gestation of : 11/15/24 1253 Date Dante Waite MD Cosigner Signature (if applicable): Date CC: Dr. Kathy Vyas MD; Dr. Dante Waite MD Signed Normal [facility] URINE OB DIP B/Oon 5 Glucose Ql (U) Negative Neg mg/dL [facility] Interpretation and review of laboratory results Normal [facility] Protein.monoclonal (U) [Mass/Vol] Negative Neg mg/dL [facility] ROUTINE, GROUP B ST REPTOCOCCUS BY PCRon 11-10-2024 ROUTINE, GROUP B STREPTOCOCCUS BY PCR Not detected Normal [facility] Comment on above: Performed By: #### G BPCR ####[facility] LABCLIA [id number] [address] STATES OF [facility] URINE OB DIP B/Oon 5 Glucose Ql (U) Negative Neg mg/dL [facility] Interpretation and review of laboratory results Normal [facility] Protein.monoclonal (U) [Mass/Vol] Negative Neg mg/dL [facility] URINE OB DIP B/Oon 5 Glucose Ql (U) Negative Neg mg/dL [facility] Interpretation and review of laboratory results Normal [facility] Protein.monoclonal (U) [Mass/Vol] Negative Neg mg/dL [facility] CNPNon 10-04-2024 CNPN Telephone (OBGYWM) HERB MORAN ([id number]) 1990 F Date Time Provider Department 10/04/24 DANTE WAITE During your visit today, we recorded the following information about you: Mare Larios RN 10/04/2024 8:50 AM Signed Received breast pump RX from [facility]. To RR to sign. GISSELLE Ocampo Tara, RN 10/04/2024 1:42 PM Signed Faxed. Cem Back RN Allergies As of Date: 10/04/2024 Noted Allergy Reaction SULFA (SULFONAMIDE ANTIBIOTICS) 04/19/2011 4 - Hives Date Reviewed: 09/27/2024 Reviewed by: Cody France MA - Fully Assessed Reason for Visit: Breast Pump [Other] Prescriptions as of 10/04/2024 - ferrous sulfate EC 324 mg (65 mg iron) TbEC Take 324 mg by mouth. - aspirin, enteric coated (ECOTRIN LOW STRENGTH) 81 mg EC tablet Take 1 tablet by mouth once daily. - vitamins no.2 ( VITAMIN NO.2 ORAL) Take by mouth once daily. - clindamycin-benzoyl peroxide 1.2 %(1 % base) -3.75 % gel Apply to affected area as needed. Problem List As Of Date 10/04/2024 Noted Resolved Acne [L70.9] 04/19/2011 01/17/2022 Abnormal glucose in , antepartum [O99.*11/16/2019 05/29/2021 Gestational diabetes mellitus, class A1 [O24.41*11/22/2019 01/17/2022 History of gestational diabetes in prior pregna*05/24/2021 10/17/2021 Hx of gestational diabetes in prior , *05/24/2021 History of delivery, currently *05/24/2021 01/17/2022 Supervision of other high risk pregnancies, fir*05/29/2021 01/17/2022 Anemia during in third trimester (HCC*10/09/2021 Supervision of high risk in second tr*04/19/2024 Hx of preeclampsia, prior , currently *04/19/2024 Encounter Status:Closed by CEM BACK on 6/23/25 Normal [facility] Bacteria Ur Culton Bacteria identified Cx Nom (U) ORGANISM ID: 1 10,000 -<50,000 CFU/ml Normal urogenital leandro Normal [facility] Comment on above: Performed By: #### 6 30-4 ####[facility] LABCLIA [id number] [address] [place] CBC W Auto Differential pane l (Bld)on 09-27-2024 Basophils (Bld) [#/Vol] 0.03 10*3/uL [facility] Basophils/100 WBC (Bld) 0.3 % [facility] Differential cell count method Nom (Bld) Auto [facility] Eosinophils (Bld) [#/Vol] 0.21 10*3/uL [facility] Eosinophils/100 WBC (Bld) 2 % [facility] Erythrocyte distribution width (RBC) [Ratio] 15.9 % High 11.5 - 15.0 % [facility] Hematocrit (Bld) [Volume fraction] 32.5 % Low 36.0 - 46.0 % [facility] Hemoglobin (Bld) [Mass/Vol] 10.7 g/dL Low 11.5 - 15.5 g/dL [facility] Immature granulocytes (Bld) [#/Vol] 0.12 10*3/uL High [facility] Immature granulocytes/100 WBC (Bld) 1.1 % [facility] Interpretation and review of laboratory results Abnormal [facility] Lymphocytes (Bld) [#/Vol] 2.17 10*3/uL [facility] Lymphocytes/100 WBC (Bld) 20.4 % [facility] MCH (RBC) [Entitic mass] 27.4 pg 26.0 - 34.0 pg [facility] MCHC (RBC) [Mass/Vol] 32.9 g/dL 30.5 - 36.0 g/dL [facility] MCV (RBC) [Entitic vol] 83.1 fL 80.0 - 100.0 fL [facility] Monocytes (Bld) [#/Vol] 0.87 10*3/uL High [facility] Monocytes/100 WBC (Bld) 8.2 % [facility] Neutrophils (Bld) [#/Vol] 7.26 10*3/uL [facility] Neutrophils/100 WBC (Bld) 68 % [facility] Nucleated RBC (Bld) [#/Vol] NINF [facility] Nucleated RBC/100 WBC (Bld) [Ratio] 0 % /100 WBC [facility] Platelet mean volume (Bld) [Entitic vol] 8.9 fL Low 9.0 - 12.7 fL [facility] Platelets (Bld) [#/Vol] 333 10*3/uL [facility] RBC (Bld) [#/Vol] 3.91 10*6/uL 3.90 - 5.2 0 m/uL [facility] WBC (Bld) [#/Vol] 10.66 10*3/uL [facility] Basophils (Bld) [#/Vol] 0.03 10*3/uL Normal <0.11 [facility] Comment on above: Order Comment: Speci men Type: BLOOD SPECIMENOrdering Facility: [facility] Address: [address] [place] [address] Performed By: #### 5 7021-8 ####[facility] [id number] [place] [address] [place] Basophils/100 WBC (Bld) 0.3 % Normal [facility] Comment on above: Order Comment: Speci men Type: BLOOD SPECIMENOrdering Facility: [facility] Address: [address] [place] [address] Performed By: #### 5 7021-8 ####[facility] [id number] [place] [address] [place] Differential cell count method Nom (Bld) Auto Normal [facility] Comment on above: Order Comment: Speci men Type: BLOOD SPECIMENOrdering Facility: [facility] Address: [address] [place] [address] Performed By: #### 5 7021-8 ####[facility] [id number] [place] [address] [place] Eosinophils (Bld) [#/Vol] 0.21 10*3/uL Normal <0.46 [facility] Comment on above: Order Comment: Speci men Type: BLOOD SPECIMENOrdering Facility: [facility] Address: [address] [place] [address] Performed By: #### 5 7021-8 ####[facility] [id number] [place] [address] [place] Eosinophils/100 WBC (Bld) 2.0 % Normal [facility] Comment on above: Order Comment: Speci men Type: BLOOD SPECIMENOrdering Facility: [facility] Address: [address] [place] [address] Performed By: #### 5 7021-8 ####[facility] [id number] [place] [address] [place] Erythrocyte distribution width (RBC) [Ratio] 15.9 % High 11.5-15.0 [facility] Comment on above: Order Comment: Speci men Type: BLOOD SPECIMENOrdering Facility: [facility] Address: [address] [place] [address] Performed By: #### 5 7021-8 ####[facility] [id number] [place] [address] [place] Hematocrit (Bld) [Volume fraction] 32.5 % Low 36.0-46.0 [facility] Comment on above: Order Comment: Speci men Type: BLOOD SPECIMENOrdering Facility: [facility] Address: [address] [place] [address] Performed By: #### 5 7021-8 ####[facility] [id number] [place] [address] [place] Hemoglobin (Bld) [Mass/Vol] 10.7 g/dL Low 11.5-15.5 [facility] Comment on above: Order Comment: Speci men Type: BLOOD SPECIMENOrdering Facility: [facility] Address: [address] [place] [address] Performed By: #### 5 7021-8 ####[facility] MILLJAMESWNCLIA [id number] [place] [address] [place] Immature granulocytes (Bld) [#/Vol] 0.12 10*3/uL High <0.10 [facility] Comment on above: Order Comment: Speci men Type: BLOOD SPECIMENOrdering Facility: [facility] Address: [address] [place] [address] Performed By: #### 5 7021-8 ####[facility] SAMIRWNCLIA [id number] [place] [address] [place] Immature granulocytes/100 WBC (Bld) 1.1 % Normal [facility] Comment on above: Order Comment: Speci men Type: BLOOD SPECIMENOrdering Facility: [facility] Address: [address] [place] [address] Performed By: #### 5 7021-8 ####[facility] SAMIRWNCLIA [id number] [place] [address] [place] Lymphocytes (Bld) [#/Vol] 2.17 10*3/uL Normal 1.00-4.00 [facility] Comment on above: Order Comment: Speci men Type: BLOOD SPECIMENOrdering Facility: [facility] Address: [address] [place] [address] Performed By: #### 5 7021-8 ####[facility] MILLTOWNCLIA [id number] [place] [address] [place] Lymphocytes/100 WBC (Bld) 20.4 % Normal [facility] Comment on above: Order Comment: Speci men Type: BLOOD SPECIMENOrdering Facility: [facility] Address: [address] [place] [address] Performed By: #### 5 7021-8 ####[facility] MILLWNCLIA [id number] [place] [address] [place] MCH (RBC) [Entitic mass] 27.4 pg Normal 26.0-34.0 [facility] Comment on above: Order Comment: Speci men Type: BLOOD SPECIMENOrdering Facility: [facility] Address: [address] [place] [address] Performed By: #### 5 7021-8 ####[facility] [id number] [place] [address] [place] MCHC (RBC) [Mass/Vol] 32.9 g/dL Normal 30.5-36.0 [facility] Comment on above: Order Comment: Speci men Type: BLOOD SPECIMENOrdering Facility: [facility] Address: [address] [place] [address] Performed By: #### 5 7021-8 ####[facility] [id number] [place] [address] [place] MCV (RBC) [Entitic vol] 83.1 fL Normal 80.0-100.0 [facility] Comment on above: Order Comment: Speci men Type: BLOOD SPECIMENOrdering Facility: [facility] Address: [address] [place] [address] Performed By: #### 5 7021-8 ####[facility] [id number] [place] [address] [place] Monocytes (Bld) [#/Vol] 0.87 10*3/uL High <0.87 [facility] Comment on above: Order Comment: Speci men Type: BLOOD SPECIMENOrdering Facility: [facility] Address: [address] [place] [address] Performed By: #### 5 7021-8 ####[facility] [id number] [place] [address] [place] Monocytes/100 WBC (Bld) 8.2 % Normal [facility] Comment on above: Order Comment: Speci men Type: BLOOD SPECIMENOrdering Facility: [facility] Address: [address] [place] [address] Performed By: #### 5 7021-8 ####[facility] [id number] [place] [address] [place] Neutrophils (Bld) [#/Vol] 7.26 10*3/uL Normal 1.45-7.50 [facility] Comment on above: Order Comment: Speci men Type: BLOOD SPECIMENOrdering Facility: [facility] Address: [address] [place] [address] Performed By: #### 5 7021-8 ####[facility] [id number] [place] [address] [place] Neutrophils/100 WBC (Bld) 68.0 % Normal [facility] Comment on above: Order Comment: Speci men Type: BLOOD SPECIMENOrdering Facility: [facility] Address: [address] [place] [address] Performed By: #### 5 7021-8 ####[facility] [id number] [place] [address] [place] Nucleated RBC (Bld) [#/Vol] 10*3/uL Normal <0.01 [facility] Comment on above: Order Comment: Speci men Type: BLOOD SPECIMENOrdering Facility: [facility] Address: [address] [place] [address] Performed By: #### 5 7021-8 ####[facility] [id number] [place] [address] [place] Nucleated RBC/100 WBC (Bld) [Ratio] 0.0 /100 WBC Normal [facility] Comment on above: Order Comment: Speci men Type: BLOOD SPECIMENOrdering Facility: [facility] Address: [address] [place], [place] [address] Performed By: #### 5 7021-8 ####[facility] ERNESTINENCASHLEY [id number] [place] [address] [place] Platelet mean volume (Bld) [Entitic vol] 8.9 fL Low 9.0-12.7 [facility] Comment on above: Order Comment: Speci men Type: BLOOD SPECIMENOrdering Facility: [facility] Address: [address] [place] [address] Performed By: #### 5 7021-8 ####[facility] HOSPITALNCASHLEY [id number] [place] [address] [place] Platelets (Bld) [#/Vol] 333 10*3/uL Normal 150-400 [facility] Comment on above: Order Comment: Speci men Type: BLOOD SPECIMENOrdering Facility: [facility] Address: [address] [place] [address] Performed By: #### 5 7021-8 ####[facility] HOSPITALNCYOGESHA [id number] [place] [address] [place] RBC (Bld) [#/Vol] 3.91 10*6/uL Normal 3.90-5.20 [facility] Comment on above: Order Comment: Speci men Type: BLOOD SPECIMENOrdering Facility: [facility] Address: [address] [place], [place] [address] Performed By: #### 5 7021-8 ####[facility]ITALNCLIA [id number] [place] [address] [place] WBC (Bld) [#/Vol] 10.66 10*3/uL Normal 3.70-11.00 [facility] Comment on above: Order Comment: Speci men Type: BLOOD SPECIMENOrdering Facility: [facility] Address: [address] [place] [address] Performed By: #### 5 7021-8 ####[facility] LETTY DAWSONVIKINGNCLIPrem [id number] [place] [address] [place] Comprehensive metabolic 2000 panelOrdered By: Elizabeth Resendiz on 09-27-2024 Albumin [Mass/Vol] 3.7 g/dL Low 3.9 - 4.9 g/dL Cl [facility] ALP [Catalytic activity/Vol] 124 U/L High 34 - 123 U/L [facility] ALT [Catalytic activity/Vol] 28 U/L 7 - 38 U/L [facility] Anion gap [Moles/Vol] 12 mmol/L 8 - 15 mmol/L [facility] AST [Catalytic activity/Vol] 20 U/L 13 - 35 U/L [facility] Bilirubin [Mass/Vol] mg/dL Low 0.2 - 1.3 mg/dL [facility] Calcium [Mass/Vol] 8.6 mg/dL 8.5 - 10. 2 mg/dL [facility] Chloride [Moles/Vol] 106 mmol/L 98 - 107 mmol/L [facility] CO2 [Moles/Vol] 17 mmol/L Low 22 - 30 mmol/L [facility] Creatinine [Mass/Vol] 0.52 mg/dL Low 0.58 - 0.96 mg/dL [facility] GFR/1.73 sq M.predicted among non-blacks MDRD (S/P/Bld) [Vol rate/Area] 127 mL/min/{1.73_m2} - PINF [facility] Comment on above: Estimated Glomerular Filtration Rate (eGFR) is calculated using the 2020 CKD-EPI creatinine equation. This equation utilizes serum creatinine, sex, and age as parameters. The creatinine assay has traceable calibration to isotope dilution-mass spectrometry. Refer to KDIGO guidelines for clinical interpretation. In patients with unstable renal function, e.g. those with acute kidney injury, the eGFR may not accurately reflect actual GFR. Glucose [Mass/Vol] 111 mg/dL High 74 - 99 mg/dL [facility] Comment on above: The [place] Diab[employer] s Association (ADA) provides guidance for cutoff values for fasting glucose and random glucose. The ADA defines fasting as no caloric intake for at least 8 hours. Fasting plasma glucose results between 100 to 125 mg/dL indicate increased risk for diabetes (prediabetes). Fasting plasma glucose results greater than or equal to 126 mg/dL meet the criteria for diagnosis of diabetes. In the absence of unequivocal hyperglycemia, results should be confirmed by repeat testing. In a patient with classic symptoms of hyperglycemia or hyperglycemic crisis, random plasma glucose results greater than or equal to 200 mg/dL meet the criteria for diagnosis of diabetes. Reference: Standards of Medical Care in Diabetes 2016, [place] [employer] Association. Diabetes Care. 2016.39(Suppl 1). Interpretation and review of laboratory results Abnormal [facility] Potassium [Moles/Vol] 3.6 mmol/L Low 3.7 - 5.1 mmol/L [facility] Protein [Mass/Vol] 6.5 g/dL 6.3 - 8.0 g/dL [facility] Sodium [Moles/Vol] 135 mmol/L Low 136 - 144 mmol/L [facility] Urea nitrogen [Mass/Vol] 8 mg/dL 7 - 21 mg/dL [facility] Comprehensive metabolic 2000 panelon 09-27-2024 Albumin [Mass/Vol] 3.7 g/dL Low 3.9-4.9 [facility] Comment on above: Order Comment: Speci men Type: BLOOD SPECIMENOrdering Facility: [facility] Address: [address] [place] [address] Performed By: #### 2 4323-8 ####[facility] [id number] [place] [address] [place] ALP [Catalytic activity/Vol] 124 U/L High 34-123 [facility] Comment on above: Order Comment: Speci men Type: BLOOD SPECIMENOrdering Facility: [facility] Address: [address] [place] [address] Performed By: #### 2 4323-8 ####[facility] [id number] [place] [address] [place] ALT [Catalytic activity/Vol] 28 U/L Normal 7-38 [facility] Comment on above: Order Comment: Speci men Type: BLOOD SPECIMENOrdering Facility: [facility] Address: [address] [place] [address] Performed By: #### 2 4323-8 ####[facility] LETTY MILLTOWNCLIA [id number] [place] [address] [place] Anion gap [Moles/Vol] 12 mmol/L Normal 8-15 [facility] Comment on above: Order Comment: Speci men Type: BLOOD SPECIMENOrdering Facility: [facility] Address: [address] [place] [address] Performed By: #### 2 4323-8 ####[facility] MILLTOWNCLIA [id number] [place] [address] [place] AST [Catalytic activity/Vol] 20 U/L Normal 13-35 [facility] Comment on above: Order Comment: Speci men Type: BLOOD SPECIMENOrdering Facility: [facility] Address: [address] [place] [address] Performed By: #### 2 4323-8 ####[facility]WNCL[facility] [id number] [place] [address] [place] Bilirubin [Mass/Vol] mg/dL Low 0.2-1.3 [facility] Comment on above: Order Comment: Speci men Type: BLOOD SPECIMENOrdering Facility: [facility] Address: [address] [place] [address] Performed By: #### 2 4323-8 ####[facility] MILLTOWNCLIA [id number] [place] [address] [place] Calcium [Mass/Vol] 8.6 mg/dL Normal 8.5-10.2 [facility] Comment on above: Order Comment: Speci men Type: BLOOD SPECIMENOrdering Facility: [facility] Address: [address] [place], [place] [address] Performed By: #### 2 4323-8 ####[facility] MILLTOWNCLIA [id number] [place] [address] [place] Chloride [Moles/Vol] 106 mmol/L Normal 98-107 [facility] Comment on above: Order Comment: Speci men Type: BLOOD SPECIMENOrdering Facility: [facility] Address: [address] [place] [address] Performed By: #### 2 4323-8 ####[facility] [id number] [place] [address] [place] CO2 [Moles/Vol] 17 mmol/L Low 22-30 [facility] Comment on above: Order Comment: Speci men Type: BLOOD SPECIMENOrdering Facility: [facility] Address: [address] [place] [address] Performed By: #### 2 4323-8 ####[facility] [id number] [place] [address] [place] Creatinine [Mass/Vol] 0.52 mg/dL Low 0.58-0.96 [facility] Comment on above: Order Comment: Speci men Type: BLOOD SPECIMENOrdering Facility: [facility] Address: [address] [place] [address] Performed By: #### 2 4323-8 ####[facility] [id number] [address] OF [facility] Creatinine and Glomerular filtration rate.predicted panel (S/P/Bld) 127 mL/min/1.73m??? Normal >=60 [facility] Comment on above: Order Comment: Speci men Type: BLOOD SPECIMENOrdering Facility: [facility] Address: [address] [place] [address] Result Comment: Ángela mated Glomerular Filtration Rate (eGFR) is calculated using the 2020 CKD-EPI creatinine equation. This equation utilizes serum creatinine, sex, and age as parameters. The creatinine assay has traceable calibration to isotope dilution-mass spectrometry. Refer to KDIGO guidelines for clinical interpretation. In patients with unstable renal function, e.g. those with acute kidney injury, the eGFR may not accurately reflect actual GFR. Performed By: #### 2 4323-8 ####[facility] MILLJAMESWNCLIA [id number] [place] [address] [place] Glucose [Mass/Vol] 111 mg/dL High 74-99 [facility] Comment on above: Order Comment: Speci men Type: BLOOD SPECIMENOrdering Facility: [facility] Address: [address] [place] [address] Result Comment: The [place] Diabetes Association (ADA) provides guidance for cutoff values for fasting glucose and random glucose. The ADA defines fasting as no caloric intake for at least 8 hours. Fasting plasma glucose results between 100 to 125 mg/dL indicate increased risk for diabetes (prediabetes). Fasting plasma glucose results greater than or equal to 126 mg/dL meet the criteria for diagnosis of diabetes. In the absence of unequivocal hyperglycemia, results should be confirmed by repeat testing. In a patient with classic symptoms of hyperglycemia or hyperglycemic crisis, random plasma glucose results greater than or equal to 200 mg/dL meet the criteria for diagnosis of diabetes. Reference: Standards of Medical Care in Diabetes 2016, [place] Diabetes Association. Diabetes Care. 2016.39(Suppl 1). Performed By: #### 2 4323-8 ####[facility] SAMIRWNCLIA [id number] [place] [address] [place] Potassium [Moles/Vol] 3.6 mmol/L Low 3.7-5.1 [facility] Comment on above: Order Comment: Speci men Type: BLOOD SPECIMENOrdering Facility: [facility] Address: [address] [id number] Performed By: #### 2 4323-8 ####[facility] SAMIRWNCLIA [id number] [place] [address] [place] Protein [Mass/Vol] 6.5 g/dL Normal 6.3-8.0 [facility] Comment on above: Order Comment: Speci men Type: BLOOD SPECIMENOrdering Facility: [facility] Address: [address] [place] [address] Performed By: #### 2 4323-8 ####[facility]ITAL[facility] [id number] [place] [address] [place] Sodium [Moles/Vol] 135 mmol/L Low 136-144 [facility] Comment on above: Order Comment: Speci men Type: BLOOD SPECIMENOrdering Facility: [facility] Address: [address] [place] [address] Performed By: #### 2 4323-8 ####[facility] [id number] [place] [address] [place] Urea nitrogen [Mass/Vol] 8 mg/dL Normal 7-21 [facility] Comment on above: Order Comment: Speci men Type: BLOOD SPECIMENOrdering Facility: [facility] Address: [address] [place] [address] Performed By: #### 2 4323-8 ####[facility] [id number] [place] [address] [place] UA DIP, URINE (POC)on 2024 BILIRUBIN UA (POCT) Negative Negative [facility] CLARITY UA (POCT) Clear [facility] COLOR UA (POCT) Yellow [facility] GLUCOSE UA (POCT) Negative Negative mg/dL [facility] Hemoglobin Ql (U) Negative Negative [facility] Interpretation and review of laboratory results Abnormal [facility] KETONE UA (POCT) Negative Negative mg/dL [facility] LEUKOCYTES UA (POCT) Trace Abnormal Negative [facility] NITRITE UA (POCT) Negative Negative [facility] PH UA (POCT) 6 4.5 - 8.0 [facility] Protein Ql (U) Trace Abnormal Negative mg/dL [facility] SPECIFIC GRAVITY UA (POCT) 1.02 1.005 - 1.030 [facility] UROBILINOGEN UA (POCT) 0.2 Normal E.U./d L [facility] Location:[facility], [address], [place], [address] [place] [address] POINT OF CARE [facility] CBC W Auto Differential pane l (Bld)on 09-15-2024 Basophils (Bld) [#/Vol] 10*3/uL Normal <0.11 [facility] Comment on above: Order Comment: Speci men Type: BLOOD SPECIMENOrdering Facility: [facility] Address: [address] [place] [address] Performed By: #### 5 7021-8 ####[facility]ITALWNHLIA [id number] [place] [address] [place] Basophils/100 WBC (Bld) 0.2 % Normal [facility] Comment on above: Order Comment: Speci men Type: BLOOD SPECIMENOrdering Facility: [facility] Address: [address] [place] [address] Performed By: #### 5 7021-8 ####[facility] [id number] [place] [address] [place] Differential cell count method Nom (Bld) Auto Normal [facility] Comment on above: Order Comment: Speci men Type: BLOOD SPECIMENOrdering Facility: [facility] Address: [address] [place] [address] Performed By: #### 5 7021-8 ####[facility] [id number] [place] [address] [place] Eosinophils (Bld) [#/Vol] 0.22 10*3/uL Normal <0.46 [facility] Comment on above: Order Comment: Speci men Type: BLOOD SPECIMENOrdering Facility: [facility] Address: [address] [place] [address] Performed By: #### 5 7021-8 ####[facility] [id number] [place] [address] [place] Eosinophils/100 WBC (Bld) 2.7 % Normal [facility] Comment on above: Order Comment: Speci men Type: BLOOD SPECIMENOrdering Facility: [facility] Address: [address] [place] [address] Performed By: #### 5 7021-8 ####[facility] LEWIS [id number] [place] [address] [place] Erythrocyte distribution width (RBC) [Ratio] 14.9 % Normal 11.5-15.0 [facility] Comment on above: Order Comment: Speci men Type: BLOOD SPECIMENOrdering Facility: [facility] Address: [address] [place] [address] Performed By: #### 5 7021-8 ####[facility] SAMIRVIKINGNCYOGESHPrem [id number] [place] [address] [place] Hematocrit (Bld) [Volume fraction] 31.2 % Low 36.0-46.0 [facility] Comment on above: Order Comment: Speci men Type: BLOOD SPECIMENOrdering Facility: [facility] Address: [address] [place] [address] Performed By: #### 5 7021-8 ####[facility] HOSPITALOSCARA [id number] [place] [address] [place] Hemoglobin (Bld) [Mass/Vol] 10.3 g/dL Low 11.5-15.5 [facility] Comment on above: Order Comment: Speci men Type: BLOOD SPECIMENOrdering Facility: [facility] Address: [address] [place] [address] Performed By: #### 5 7021-8 ####[facility] HOSPITALPETEYLIA [id number] [place] [address] [place] Immature granulocytes (Bld) [#/Vol] 0.06 10*3/uL Normal <0.10 [facility] Comment on above: Order Comment: Speci men Type: BLOOD SPECIMENOrdering Facility: [facility] Address: [address] [place] [address] Performed By: #### 5 7021-8 ####[facility]ITALWNCLIA [id number] [place] [address] [place] Immature granulocytes/100 WBC (Bld) 0.7 % Normal [facility] Comment on above: Order Comment: Speci men Type: BLOOD SPECIMENOrdering Facility: [facility] Address: [address] [place] [address] Performed By: #### 5 7021-8 ####[facility] [id number] [place] [address] [place] Lymphocytes (Bld) [#/Vol] 1.61 10*3/uL Normal 1.00-4.00 [facility] Comment on above: Order Comment: Speci men Type: BLOOD SPECIMENOrdering Facility: [facility] Address: [address] [place] [address] Performed By: #### 5 7021-8 ####[facility] [id number] [place] [address] [place] Lymphocytes/100 WBC (Bld) 19.6 % Normal [facility] Comment on above: Order Comment: Speci men Type: BLOOD SPECIMENOrdering Facility: [facility] Address: [address] [place] [address] Performed By: #### 5 7021-8 ####[facility] [id number] [place] [address] [place] MCH (RBC) [Entitic mass] 27.2 pg Normal 26.0-34.0 [facility] Comment on above: Order Comment: Speci men Type: BLOOD SPECIMENOrdering Facility: [facility] Address: [address] [place] [address] Performed By: #### 5 7021-8 ####[facility]ITALN[facility]ED[facility] [id number] [place] [address] [place] MCHC (RBC) [Mass/Vol] 33.0 g/dL Normal 30.5-36.0 [facility] Comment on above: Order Comment: Speci men Type: BLOOD SPECIMENOrdering Facility: [facility] Address: [address] [place] [address] Performed By: #### 5 7021-8 ####[facility]ITALN[facility] [id number] [place] [address] [place] MCV (RBC) [Entitic vol] 82.5 fL Normal 80.0-100.0 [facility] Comment on above: Order Comment: Speci men Type: BLOOD SPECIMENOrdering Facility: [facility] Address: [address] [place] [address] Performed By: #### 5 7021-8 ####[facility]ITALN[facility] [id number] [place] [address] [place] Monocytes (Bld) [#/Vol] 0.48 10*3/uL Normal <0.87 [facility] Comment on above: Order Comment: Speci men Type: BLOOD SPECIMENOrdering Facility: [facility] Address: [address] [place] [address] Performed By: #### 5 7021-8 ####[facility] [id number] [place] [address] [place] Monocytes/100 WBC (Bld) 5.8 % Normal [facility] Comment on above: Order Comment: Speci men Type: BLOOD SPECIMENOrdering Facility: [facility] Address: [address] [place] [address] Performed By: #### 5 7021-8 ####[facility] [id number] [place] [address] [place] Neutrophils (Bld) [#/Vol] 5.82 10*3/uL Normal 1.45-7.50 [facility] Comment on above: Order Comment: Speci men Type: BLOOD SPECIMENOrdering Facility: [facility] Address: [address] [place] [address] Performed By: #### 5 7021-8 ####[facility] SAMIRDAY [id number] [place] [address] [place] Neutrophils/100 WBC (Bld) 71.0 % Normal [facility] Comment on above: Order Comment: Speci men Type: BLOOD SPECIMENOrdering Facility: [facility] Address: [address] [place] [address] Performed By: #### 5 7021-8 ####[facility] HOSPITALPETEYPrem [id number] [place] [address] [place] Nucleated RBC (Bld) [#/Vol] 10*3/uL Normal <0.01 [facility] Comment on above: Order Comment: Speci men Type: BLOOD SPECIMENOrdering Facility: [facility] Address: [address] [place] [address] Performed By: #### 5 7021-8 ####[facility] HOSPITALNCA [id number] [place] [address] [place] Nucleated RBC/100 WBC (Bld) [Ratio] 0.0 /100 WBC Normal [facility] Comment on above: Order Comment: Speci men Type: BLOOD SPECIMENOrdering Facility: [facility] Address: [address] [place] [address] Performed By: #### 5 7021-8 ####[facility] [id number] [place] [address] [place] Platelet mean volume (Bld) [Entitic vol] 8.8 fL Low 9.0-12.7 [facility] Comment on above: Order Comment: Speci men Type: BLOOD SPECIMENOrdering Facility: [facility] Address: [address] [place] [address] Performed By: #### 5 7021-8 ####[facility] HOSPITALNCLIA [id number] [place] [address] [place] Platelets (Bld) [#/Vol] 312 10*3/uL Normal 150-400 [facility] Comment on above: Order Comment: Speci men Type: BLOOD SPECIMENOrdering Facility: [facility] Address: [address] [place] [address] Performed By: #### 5 7021-8 ####[facility] HOSPITALNCLIA [id number] [place] [address] [place] RBC (Bld) [#/Vol] 3.78 10*6/uL Low 3.90-5.20 [facility] Comment on above: Order Comment: Speci men Type: BLOOD SPECIMENOrdering Facility: [facility] Address: [address] [place] [address] Performed By: #### 5 7021-8 ####[facility] HOSPITALNCA [id number] [place] [address] [place] WBC (Bld) [#/Vol] 8.21 10*3/uL Normal 3.70-11.00 [facility] Comment on above: Order Comment: Speci men Type: BLOOD SPECIMENOrdering Facility: [facility] Address: [address] [place] [address] Performed By: #### 5 7021-8 ####[facility]PITALNCLIA [id number] [place] [address] [place] Ferritin SerPl-mCncon 2024 Ferritin [Mass/Vol] 8.3 ng/mL Low 14.7-205.1 [facility] Comment on above: Order Comment: Speci men Type: BLOOD SPECIMENOrdering Facility: [facility] Address: [address] [place] [address] Performed By: #### 5 0190-8, 2276- ####[facility] LABCLIA [id number] [place] [id number] [place] GESTATIONAL GLUCOSE SCREEN, 1-HOUR, 50 GRAM, NON-FASTINGon 09-15-2024 Glucose [Mass/Vol] 128 mg/dL Normal 74-134 [facility] Comment on above: Order Comment: Speci men Type: BLOOD SPECIMENOrdering Facility: [facility] Address: [address] [place] [address] Result Comment: [facility] Congress of Obstetricians and Gynecologists (Mariluz/Mode) guidelines state a gestational diabetes mellitus positive screen is made, in women not previously diagnosed with overt diabetes, when the 1 hr plasma glucose level is equal to or above 140 mg/dL. The [facility] Computer Analyst Supervisor and [facility] [place] recommends a 135 mg/dL cutoff. Performed By: #### G LTGST ####[facility] [id number] [place] [address] [place] Iron and Iron binding capaci ty panelon 09-15-2024 Iron [Mass/Vol] 52 ug/dL Normal 41-186 [facility] Comment on above: Order Comment: Speci men Type: BLOOD SPECIMENOrdering Facility: [facility] Address: [address] [place] [address] Performed By: #### 5 0190-8, 4 ####[facility] LABCLIA [id number] [place] [id number] [place] Iron binding capacity [Mass/Vol] >552 High 232-386 [facility] Comment on above: Order Comment: Speci men Type: BLOOD SPECIMENOrdering Facility: [facility] Address: [address] [place], [place] [id number] Performed By: #### 5 0190-8, 2275-07 ####[facility] LABCLIA [id number] [place] [id number] [place] Iron/TIBC [Molar ratio] <9.4 Low 15.0-57.0 [facility] Comment on above: Order Comment: Speci osito Type: BLOOD SPECIMENOrdering Facility: [facility] Address: [address] [place] [address] Performed By: #### 5 0190-8, 2276-4 ####[facility] LABCLIA [id number] [address] [place] Reagin and Treponema pallidu m IgG and IgM [Interp]on 09-15-2024 T. pallidum IgG+IgM IA Ql (S) Non-Reactive Normal Nonreactive [facility] Comment on above: Order Comment: Speci men Type: BLOOD SPECIMENOrdering Facility: [facility] Address: [address] [place] [address] Performed By: #### 7 3752-8 ####[facility] LABIA [id number] [place] [address] [place] Reagin+T pallidum IgG+IgM Se rPl-Impon 09-15-2024 Reagin and Treponema pallidum IgG and IgM [Interp] Cannot exclude recent Treponemal infection if specimen collected within 7-10 days after appearance of suspect lesions or 2-3 weeks after an exposure. Clinical correlation is required. Normal [facility] Comment on above: Order Comment: Aurorai osito Type: BLOOD SPECIMENOrdering Facility: [facility] Address: [address] [place] [address] Performed By: #### 7 3752-8 ####[facility] LABIA [id number] [place] [id number] [place] Examination level ultrasound on 06-02-2024 Indication First trimester anatomic survey Impression REMOTE READ The patient is referred for a first trimester anatomy scan including nuchal translucency measurement as clinically indicated. - Single, live, intrauterine . - [place] rump length measurement is consistent with the established gestational age. - A qualitative screen of the nuchal translucency and other anatomic structures was unremarkable on first trimester anatomic assessment. - Not all structural malformations can be detected by ultrasound examination. Maternal Structures: Right Ovary: Size 34 mm x 12 mm x 13 mm Left Ovary: Size 32 mm x 28 mm x 18 mm Recommendations Return for anatomy ultrasound Maternal Assessment Height 168 cm Height (ft) 5 ft Height (in) 6 in Physical Exam Initial weight (lb) 168 lb Initial BMI 27.12 kg/m Maternal assessment other: 3 Para 2 Method Transabdominal ultrasound examination Maria . Number of fetuses: 1 Dating LMP on: 02/28/2024 GA by LMP 13 w + 4 d EDIL by LMP: 12/04/2024 GA by prior assessment 13 w + 4 d EDIL by prior assessment: 12/04/2024 Ultrasound examination on: 06/02/2024 GA by U/S based upon: CRL GA by U/S 13 w + 2 d EDIL by U/S: 12/06/2024 Assigned: based on stated EDIL, selected on 06/02/2024 Assigned GA 13 w + 4 d Assigned EDIL: 12/04/2024 General Evaluation Cardiac activity present Placenta: anterior Cord vessels: 3 vessel cord Amniotic fluid: normal amount Biometry Standard FHR 156 bpm CRL 71.3 mm 13w 2d 32% [place] First Trimester Anatomy Calvarium: normal Falx cerebri: normal Choroid plexus: normal Profile: normal Nasal bone: normal Retronasal triangle: normal Maxilla: normal Mandible: normal Nuchal translucency: Unremarkable Situs: normal Cardiac position: normal Cardiac axis: normal 4-chamber view: visualized 4-chamber view with color: visualized 6-hoomgk-anrseyt view: normal Abdominal cord insertion: normal Stomach: normal Kidneys: visualized Bladder: normal Color doppler of perivesical umbilical arteries: normal Vertebral alignment: normal Arms: normal Hands: normal Legs: normal Feet: normal Maternal Structures Uterus / Cervix Uterus: Visualized Uterus length 137 mm Uterus width 97 mm Uterus height 81 mm Uterus Vol 565.4 cm Ovaries / Tubes / Adnexa Rt ovary: Visualized Rt ovary D1 34 mm Rt ovary D2 12 mm Rt ovary D3 13 mm Rt ovary Vol 2.8 cm Lt ovary: Visualized Lt ovary D1 32 mm Lt ovary D2 28 mm Lt ovary D3 18 mm Lt ovary Vol 8.1 cm Performed By: Adelaide Willis, MIN, RVT Read By: Manjula Diaz M.D. MATERNAL MEDICINE [facility] Radiology Study observation (narrative) [facility] CBC W Auto Differential pane l (Bld)on 05-04-2024 Basophils (Bld) [#/Vol] 0.03 10*3/uL Normal <0.11 [facility] Comment on above: Order Comment: Speci men Type: BLOOD SPECIMENOrdering Facility: [facility] Address: [address] [place] [address] Performed By: #### 5 7021-8 ####[facility]PITALWNHLIA [id number] [place] [address] [place] Basophils/100 WBC (Bld) 0.4 % Normal [facility] Comment on above: Order Comment: Speci men Type: BLOOD SPECIMENOrdering Facility: [facility] Address: [address] [place] [address] Performed By: #### 5 7021-8 ####[facility] [id number] [place] [address] [place] Differential cell count method Nom (Bld) Auto Normal [facility] Comment on above: Order Comment: Speci men Type: BLOOD SPECIMENOrdering Facility: [facility] Address: [address] [place] [address] Performed By: #### 5 7021-8 ####[facility] [id number] [place] [address] [place] Eosinophils (Bld) [#/Vol] 0.07 10*3/uL Normal <0.46 [facility] Comment on above: Order Comment: Speci men Type: BLOOD SPECIMENOrdering Facility: [facility] Address: [address] [place] [address] Performed By: #### 5 7021-8 ####[facility] [id number] [place] [address] [place] Eosinophils/100 WBC (Bld) 0.8 % Normal [facility] Comment on above: Order Comment: Speci men Type: BLOOD SPECIMENOrdering Facility: [facility] Address: [address] [place] [address] Performed By: #### 5 7021-8 ####[facility] LEWIS [id number] [place] [address] [place] Erythrocyte distribution width (RBC) [Ratio] 14.4 % Normal 11.5-15.0 [facility] Comment on above: Order Comment: Speci men Type: BLOOD SPECIMENOrdering Facility: [facility] Address: [address] [place] [address] Performed By: #### 5 7021-8 ####[facility] HOSPITALALIDA [id number] [place] [address] [place] Hematocrit (Bld) [Volume fraction] 36.2 % Normal 36.0-46.0 [facility] Comment on above: Order Comment: Speci men Type: BLOOD SPECIMENOrdering Facility: [facility] Address: [address] [place] [address] Performed By: #### 5 7021-8 ####[facility]ITALYOGESHA [id number] [place] [address] [place] Hemoglobin (Bld) [Mass/Vol] 12.0 g/dL Normal 11.5-15.5 [facility] Comment on above: Order Comment: Speci men Type: BLOOD SPECIMENOrdering Facility: [facility] Address: [address] [place] [address] Performed By: #### 5 7021-8 ####[facility] [id number] [place] [address] [place] Immature granulocytes (Bld) [#/Vol] 0.04 10*3/uL Normal <0.10 [facility] Comment on above: Order Comment: Speci men Type: BLOOD SPECIMENOrdering Facility: [facility] Address: [address] [place] [address] Performed By: #### 5 7021-8 ####[facility] [id number] [place] [address] [place] Immature granulocytes/100 WBC (Bld) 0.5 % Normal [facility] Comment on above: Order Comment: Speci men Type: BLOOD SPECIMENOrdering Facility: [facility] Address: [address] [place] [address] Performed By: #### 5 7021-8 ####[facility] [id number] [place] [address] [place] Lymphocytes (Bld) [#/Vol] 1.39 10*3/uL Normal 1.00-4.00 [facility] Comment on above: Order Comment: Speci men Type: BLOOD SPECIMENOrdering Facility: [facility] Address: [address] [place] [address] Performed By: #### 5 7021-8 ####[facility] [id number] [place] [address] [place] Lymphocytes/100 WBC (Bld) 16.4 % Normal [facility] Comment on above: Order Comment: Speci men Type: BLOOD SPECIMENOrdering Facility: [facility] Address: [address] [place] [address] Performed By: #### 5 7021-8 ####[facility] [id number] [place] [address] [place] MCH (RBC) [Entitic mass] 26.7 pg Normal 26.0-34.0 [facility] Comment on above: Order Comment: Speci men Type: BLOOD SPECIMENOrdering Facility: [facility] Address: [address] [place] [address] Performed By: #### 5 7021-8 ####[facility] [id number] [place] [address] [place] MCHC (RBC) [Mass/Vol] 33.1 g/dL Normal 30.5-36.0 [facility] Comment on above: Order Comment: Speci men Type: BLOOD SPECIMENOrdering Facility: [facility] Address: [address] [place] [address] Performed By: #### 5 7021-8 ####[facility] [id number] [place] [address] [place] MCV (RBC) [Entitic vol] 80.4 fL Normal 80.0-100.0 [facility] Comment on above: Order Comment: Speci men Type: BLOOD SPECIMENOrdering Facility: [facility] Address: [address] [place] [address] Performed By: #### 5 7021-8 ####[facility] [id number] [place] [address] [place] Monocytes (Bld) [#/Vol] 0.47 10*3/uL Normal <0.87 [facility] Comment on above: Order Comment: Speci men Type: BLOOD SPECIMENOrdering Facility: [facility] Address: [address] [place] [address] Performed By: #### 5 7021-8 ####[facility] [id number] [place] [address] [place] Monocytes/100 WBC (Bld) 5.5 % Normal [facility] Comment on above: Order Comment: Speci men Type: BLOOD SPECIMENOrdering Facility: [facility] Address: [address] [place] [address] Performed By: #### 5 7021-8 ####[facility] [id number] [place] [address] [place] Neutrophils (Bld) [#/Vol] 6.49 10*3/uL Normal 1.45-7.50 [facility] Comment on above: Order Comment: Speci men Type: BLOOD SPECIMENOrdering Facility: [facility] Address: [address] [place] [address] Performed By: #### 5 7021-8 ####[facility] SAMIR[facility] [id number] [place] [address] [place] Neutrophils/100 WBC (Bld) 76.4 % Normal [facility] Comment on above: Order Comment: Speci men Type: BLOOD SPECIMENOrdering Facility: [facility] Address: [address] [place] [address] Performed By: #### 5 7021-8 ####[facility] HOSPITALPETEYPrem [id number] [place] [address] [place] Nucleated RBC (Bld) [#/Vol] 10*3/uL Normal <0.01 [facility] Comment on above: Order Comment: Speci men Type: BLOOD SPECIMENOrdering Facility: [facility] Address: [address] [place] [address] Performed By: #### 5 7021-8 ####[facility] BEACHPrem [id number] [place] [address] [place] Nucleated RBC/100 WBC (Bld) [Ratio] 0.0 /100 WBC Normal [facility] Comment on above: Order Comment: Speci men Type: BLOOD SPECIMENOrdering Facility: [facility] Address: [address] [place] [address] Performed By: #### 5 7021-8 ####[facility]PITALPETEYLIA [id number] [place] [address] [place] Platelet mean volume (Bld) [Entitic vol] 8.7 fL Low 9.0-12.7 [facility] Comment on above: Order Comment: Speci men Type: BLOOD SPECIMENOrdering Facility: [facility] Address: [address] [place] [address] Performed By: #### 5 7021-8 ####[facility]ITALVIKINGNCLIA [id number] [place] [address] [place] Platelets (Bld) [#/Vol] 269 10*3/uL Normal 150-400 [facility] Comment on above: Order Comment: Speci men Type: BLOOD SPECIMENOrdering Facility: [facility] Address: [address] [place] [address] Performed By: #### 5 7021-8 ####[facility] HOSPITALNCLIA [id number] [place] [address] [place] RBC (Bld) [#/Vol] 4.50 10*6/uL Normal 3.90-5.20 [facility] Comment on above: Order Comment: Speci men Type: BLOOD SPECIMENOrdering Facility: [facility] Address: [address] [place] [address] Performed By: #### 5 7021-8 ####[facility] HOSPITALNCLIA [id number] [place] [address] [place] WBC (Bld) [#/Vol] 8.49 10*3/uL Normal 3.70-11.00 [facility] Comment on above: Order Comment: Speci men Type: BLOOD SPECIMENOrdering Facility: [facility] Address: [address] [place] [address] Performed By: #### 5 7021-8 ####[facility] HOSPITALNCLIA [id number] [place] [address] [place] Examination level ultrasound on 05-04-2024 Indication dating Impression Maternal Structures: Right Ovary: Size 20 mm x 25 mm x 20 mm Left Ovary: Size 29 mm x 26 mm x 19 mm - Single, live, intrauterine . - An intrauterine gestational sac with a yolk sac and pole is present. - [place] rump length measurement is consistent with the established gestational age. - heart rate is within normal limits. FHR 167. - There is a small subchorionic hemorrhage that measures 10 mm x 19 mm x 3 mm. Ultrasound Consultation Recommendations Follow up for NT/early anatomy scan if desired. Maternal Assessment Height 168 cm Height (ft) 5 ft Height (in) 6 in Method Transabdominal ultrasound examination. View: Adequate visualization Maria . Number of embryos: 1 Dating LMP on: 02/28/2024 GA by LMP 9 w + 3 d EDIL by LMP: 12/04/2024 Ultrasound examination on: 05/04/2024 GA by U/S based upon: CRL GA by U/S 9 w + 5 d EDIL by U/S: 12/02/2024 Assigned: based on the LMP, selected on 05/04/2024 Assigned GA 9 w + 3 d Assigned EDIL: 12/04/2024 Assessment Gestational sac: visualized Location: intrauterine Yolk sac: visualized YS 3.4 mm <1% [place] Embryo: visualized CRL 29.0 mm 9w 5d 80% Hadlock Cardiac activity: present FHR 167 bpm Maternal Structures Uterus / Cervix Uterus: Visualized Uterus position: anteverted Description of uterine malformations: none Myometrium: normal Uterus length 91 mm Uterus width 86 mm Uterus height 76 mm Uterus Vol 311.2 cm Cervix: Visualized Cervix details: normal Other: small subchorionic hemorrage noted measuring approx. 10 mm x 19 mm x 3 mm Ovaries / Tubes / Adnexa Rt ovary: Visualized Rt ovary morphology: premenopausal normal follicular Rt ovary D1 20 mm Rt ovary D2 25 mm Rt ovary D3 20 mm Rt ovary Vol 5.2 cm Lt ovary: Visualized Lt ovary D1 29 mm Lt ovary D2 26 mm Lt ovary D3 19 mm Lt ovary Vol 7.7 cm Lt ovarian corpus luteum: anechoic Performed By: Evelia Casas RDMS Read By: Dayana Perry M.D. MATERNAL MEDICINE [facility] Radiology Study observation (narrative) [facility] HBV surface Ag Ser Qlon 04-15 HBV surface Ag Ql (S) Negative Normal Negative [facility] Comment on above: Order Comment: Speci men Type: BLOOD SPECIMENOrdering Facility: [facility] Address: [address] [place] [address] Performed By: #### 7 3752-8, 5195-3, 03923-6 ####[facility] LABCLIA [id number] [place] [address] [place] HCV Ab Ser Qlon 05-04-2024 HCV Ab Ql (S) Negative Normal Negative [facility] Comment on above: Order Comment: Speci men Type: BLOOD SPECIMENOrdering Facility: [facility] Address: [address] [place] [address] Result Comment: The result suggests no evidence of active infection with Hepatitis C virus. Should recent infection be suspected, repeat testing may be considered 4-6 weeks after this draw. Performed By: #### 1 6128-1 ####[facility] LABCLIA [id number] [place] [address] [place] HIV 1+2 Ab IA Qlon HIV 1 and 2 Ab IA.rapid Nom (S/P/Bld) Normal [facility] Comment on above: Order Comment: Speci men Type: BLOOD SPECIMENOrdering Facility: [facility] Address: [address] [place] [address] Result Comment: Test not indicated. Performed By: #### 7 3752-8, 5195-3, 85944-2 ####[facility] LABIA [id number] [place] [address] [place] HIV 1+2 Ab+HIV1 p24 Ag IA Ql Non-Reactive Normal Nonreactive [facility] Comment on above: Order Comment: Speci men Type: BLOOD SPECIMENOrdering Facility: [facility] Address: [address] [place] [address] Performed By: #### 7 3752-8, 5195-3, 84154-6 ####[facility] LABIA [id number] [place] [address] [place] HIV immunoassay testing algorithm interpretation (S/P/Bld) [Interp] Normal [facility] Comment on above: Order Comment: Speci men Type: BLOOD SPECIMENOrdering Facility: [facility] Address: [address] [place] [address] Result Comment: No e vidence of HIV-1 or HIV-2 infection. Should recent infection be suspected, repeat testing may be considered 2-3 weeks after this draw. [place] Rev. Code 3701.243(E): This information has been disclosed to you from confidential records protected from disclosure by state law. ???You shall make no further disclosure of this information without the specific, written, and informed release of the individual to whom it pertains or as otherwise permitted by state law. A general authorization for the release of medical or other information is not sufficient for the purpose of the release of HIV test results or diagnoses. Performed By: #### 7 3752-8, 5195-3, 81410-0 ####[facility] LABCLIA [id number] [address] [place] HbA1c (Bld)on 05-04-2024 Average glucose Estimated from glycated hemoglobin (Bld) [Mass/Vol] 97 mg/dL Normal [facility] Comment on above: Order Comment: Speci men Type: BLOOD SPECIMENOrdering Facility: [facility] Address: [address] [place] [address] Result Comment: eAG: (Estimated average glucose) is a calculated value from HgbA1c and is provider service representative of the average blood glucose level in the last 2-3 month period. Performed By: #### 5 5454-3 ####[facility] LABCLIA [id number] [address] OF [facility] HbA1c (Bld) [Mass fraction] 5.0 % Normal 4.3-5.6 [facility] Comment on above: Order Comment: Speci men Type: BLOOD SPECIMENOrdering Facility: [facility] Address: [address] [place] [address] Result Comment: [place] Diabetes Association guidelines indicate that patients with HgbA1c in the range 5.7-6.4% are at increased risk for development of diabetes, and intervention by lifestyle modification may be beneficial. HgbA1c greater or equal to 6.5% is considered diagnostic of diabetes. Performed By: #### 5 5454-3 ####[facility] LABCLIA [id number] [place] [address] [place] RUBELLA IGG ANTIBODYon 05-04 RUBELLA IGG AB, QUAL Positive Normal Positive [facility] Comment on above: Order Comment: Carlie mcneill Type: BLOOD SPECIMENOrdering Facility: [facility] Address: [address] [place] [address] Result Comment: The result suggests recent or past exposure to Rubella virus or history of Rubella vaccination. Positive result may also be seen due to presence of passively-transferred antibodies. Please correlate with patient's history. Performed By: #### R UBIGG ####[facility] LABCLIA [id number] [place] [address] [place] Reagin and Treponema pallidu m IgG and IgM [Interp]on 05-04-2024 T. pallidum IgG+IgM IA Ql (S) Non-Reactive Normal Nonreactive [facility] Comment on above: Order Comment: Speci osito Type: BLOOD SPECIMENOrdering Facility: [facility] Address: [address] [place] [address] Performed By: #### 7 3752-8, 5195-3, 38637-8 ####[facility] LABIA [id number] [place] [address] [place] Reagin+T pallidum IgG+IgM Se rPl-Impon 05-04-2024 Reagin and Treponema pallidum IgG and IgM [Interp] Cannot exclude recent Treponemal infection if specimen collected within 7-10 days after appearance of suspect lesions or 2-3 weeks after an exposure. Clinical correlation is required. Normal [facility] Comment on above: Order Comment: Aurorai osito Type: BLOOD SPECIMENOrdering Facility: [facility] Address: [address] [place] [address] Performed By: #### 7 3752-8, 5195-3, 97394-2 ####[facility] LABCLIA [id number] [place] [address] [place] TYPE + SCREEN PRENATALon ABO A Normal [facility] Comment on above: Order Comment: Speci men Type: BLOOD SPECIMEN [facility] Address: [address] [place] [address] Performed By: #### T SPN #### [facility] CLIA [id number] [address] [place] [address] [place] Rh Nom (Bld) Positive Normal [facility] Comment on above: Order Comment: Speci men Type: BLOOD SPECIMEN [facility] Address: [address] [place] [address] Performed By: #### T SPN #### [facility] CLIA [id number] [address] [place] [address] [place] TYPE AND SCREEN EXPIRATION 05/07/2024 23:59 Normal [facility] Comment on above: Order Comment: Speci men Type: BLOOD SPECIMEN [facility] Address: [address] [place] [address] Performed By: #### T SPN #### [facility] CLIA [id number] [address] [place] [address] [place] Bacteria Ur Culton Bacteria identified Cx Nom (U) ORGANISM ID: 1 10,000 -<50,000 CFU/ml Normal urogenital leandro Normal [facility] Comment on above: Performed By: #### 6 30-4 ####[facility] LABCLIA [id number] [address] [place] C. trachomatis+N. gonorrhoea e DNA LUPIS+probe Ql (Unsp spec)on 04-19-2024 C. trachomatis rRNA LUPIS+probe Ql (Unsp spec) Not detected Normal Not detected [facility] Comment on above: Order Comment: Speci men Type: SWABOrdering Facility: [facility] Address: [address] [place] [address] Performed By: #### 3 6902-5 ####[facility] LABCLIA [id number] [address] [place] N. gonorrhoeae rRNA LUPIS+probe Ql (Unsp spec) Not detected Normal Not detected [facility] Comment on above: Order Comment: Speci men Type: SWABOrdering Facility: [facility] Address: [address] [place] [address] Performed By: #### 3 6902-5 ####[facility] LABCLIA [id number] [address] [place] POC PARTS FINISHER ULTRASOUNDon 04-19-19 Indication Confirmation of intrauterine . Confirmation of cardiac activity Impression cardiac activity is visualized, CRL is appropriate for clinical dates, corresponding to EDIL 12/04/24 Recommendations Additional follow-up as clinically indicated. Method Transvaginal ultrasound examination. View: Adequate visualization Maria . Number of embryos: 1 Dating LMP on: 02/28/2024 GA by LMP 7 w + 2 d DEIL by LMP: 12/04/2024 Ultrasound examination on: 04/19/2024 GA by U/S based upon: CRL GA by U/S 7 w + 3 d EDIL by U/S: 12/03/2024 Assigned: based on the LMP, selected on 04/19/2024 Assigned GA 7 w + 2 d Assigned EDIL: 12/04/2024 Biometry Standard FHR 157 bpm CRL 12.7 mm 7w 3d >99% Hadlock Assessment Gestational sac: visualized Location: intrauterine Yolk sac: visualized Embryo: visualized CRL 12.7 mm 7w 3d >99% [place] Cardiac activity: present FHR 157 bpm General Evaluation Cardiac activity present. FHR 157 bpm Performed By: Mai Blanton CNP Read By: Mai Blanton CNP MATERNAL MEDICINE [facility] Radiology Study observation (narrative) [facility] Urinalysis complete panel (U )on 03-10-2023 Bacteria LM.HPF (Urine sed) [#/Area] Negative Negative /HPF [facility] Bilirubin Ql (U) Negative Negative [facility] Clarity (Unsp spec) Clear Clear [facility] Color (U) Dark Yellow Abnormal Yellow [facility] Epithelial cells LM.HPF (Urine sed) [#/Area] None Seen [facility] Glucose Test strip (U) [Mass/Vol] Negative Negative [facility] Hemoglobin Ql (U) 1+ Abnormal Negative [facility] Hyaline casts (Urine sed) [#/Area] 0 /[LPF] 0 /LPF [facility] Ketones Ql (U) Negative Negative [facility] Leukocyte esterase Test strip Ql (U) 3+ Abnormal Negative [facility] Nitrite Ql (U) Negative Negative [facility] pH (U) 6.5 [pH] <8.5 [facility] Protein (U) [Mass/Vol] Negative Negative [facility] RBC LM.HPF (Urine sed) [#/Area] 6-10 /HPF Abnormal 0-2 /HPF [facility] Specific gravity (U) [Rel density] 1.011 1.005 - 1.030 [facility] Urobilinogen Ql (U) 1.0 EU/dL 0.2-1.0 EU/dL [facility] WBC LM.HPF (Urine sed) [#/Area] 11-20 /HPF Abnormal 0-5 /HPF [facility] Absolute lymphocyte countOrd ered By: Dr. Zelaya on 09-16-2022 Lymphocytes Auto (Unsp spec) [#/Vol] 1.84 10*3/uL 0.83-4.51 [facility] Basophil percentageOrdered B y: Dr. Zelaya on 09-16-2022 Basophils/100 WBC (Bld) 0.3 % 0-1 [facility] Bilirubin [Mass/Vol] 0.20 mg/dL 0.20-1.00 [facility] Comment on above: For patients on eltr ombopag therapy, use of Dimension [place] TBIL is not recommended. Chloride [Moles/Vol] 106 mmol/L 98-107 [facility] Eosinophils/100 WBC (Bld) 0.5 % 0-5 [facility] Glucose [Mass/Vol] 92 mg/dL 74-106 [facility] Neutrophils (Bld) [#/Vol] 10.9 10*3/uL 2.0-7.7 [facility] Neutrophils/100 WBC (Bld) 81.2 % 47-70 [facility] Potassium [Moles/Vol] 4.1 mmol/L 3.5-5.1 [facility] Protein [Mass/Vol] 8.2 g/dL 6.4-8.2 [facility] Sodium [Moles/Vol] 136 mmol/L 136-145 [facility] WBC (Bld) [#/Vol] 13.4 10*3/uL 4.4-11.0 [facility] Blood erythrocytes count (nu mber/volume)Ordered By: Dr. Zelaya on 09-16-2022 RBC (Bld) [#/Vol] 4.61 10*6/uL 4.2-5.4 [facility] Blood hemoglobin measurement (mass/volume)Ordered By: Dr. Zelaya on 09-16-2022 Hemoglobin (Bld) [Mass/Vol] 12.6 g/dL 12.0-15.0 [facility] Blood lymphocytes/100 leukoc ytesOrdered By: Dr. Zelaya on 09-16-2022 Lymphocytes/100 WBC (Bld) 13.7 % 19-41 [facility] Blood monocytes/100 leukocyt esOrdered By: Dr. Zelaya on 09-16-2022 Monocytes/100 WBC (Bld) 4.0 % 0-10 [facility] Blood platelet mean volumeOr dered By: Dr. Zelaya on 09-16-2022 Platelet mean volume (Bld) [Entitic vol] 8.5 fL 6.2-12.0 [facility] Determination of erythrocyte mean corpuscular volume (MCV)Ordered By: Dr. Zelaya on 09-16-2022 MCV (RBC) [Entitic vol] 83.7 fL 81-99 [facility] Hematocrit Auto (Bld) [Volum e fraction]Ordered By: Dr. Zelaya on 09-16-2022 Hematocrit (Bld) [Volume fraction] 38.6 % 37-47 [facility] Laboratory - Chemistry and C hemistry - challengeOrdered By: Dr. Zelaya on 09-16-2022 ALP [Catalytic activity/Vol] 78 U/L 45-117 [facility] ALT [Catalytic activity/Vol] 19 U/L 13-56 [facility] CO2 [Moles/Vol] 23.0 mmol/L 21.0-32.0 [facility] Globulin (S) [Mass/Vol] 4.6 g/dL 2.2-4.2 [facility] Urea nitrogen/Creatinine [Mass ratio] 14.6 mg/mg 10-20 [facility] Laboratory - Hematology and Cell countsOrdered By: Dr. Zelaya on 09-16-2022 Erythrocyte distribution width (RBC) [Entitic vol] 41.5 fL 35.1-43.9 [facility] Erythrocyte distribution width (RBC) [Ratio] 13.5 % 11.6-14.6 [facility] Immature granulocytes/100 WBC (Bld) 0.300 % 0.0-0.9 [facility] Comment on above: IG% - Immature Granu locytes (promyelocytes, myelocytes and metamyelocytes) > 1% indicates that a LEFT SHIFT is Present. MCH (RBC) [Entitic mass] 27.3 pg 27.0-32.0 [facility] Nucleated RBC/100 WBC (Bld) [Ratio] 0 % 0-5 [facility] MCHC Auto (RBC) [Mass/Vol]Or dered By: Dr. Zelaya on 09-16-2022 MCHC (RBC) [Mass/Vol] 32.6 g/dL 32-36 [facility] No Panel InformationOrdered By: Dr. Zelaya on 09-16-2022 D-Dimer Quantitative (PE/DVT) 0.29 FEU/ug/m 0.27-0.49 [facility] Comment on above: NORMAL D-Dimer level (<0.50) indicates no DVT or PE. Estimated Creatinine Clearance Calc 113.25 ml/min [facility] Estimated GFR (MDRD) Amer 129 mL/min >60 [facility] Comment on above: GFR Calc Estimated GFR (MDRD) Non-Af Amer 107 mL/min >60 [facility] Comment on above: Non- GFR Calc Troponin I High Sensitivity < 3 pg/mL 3.0-54.0 [facility] Comment on above: Please Note: New [place] t Units and Gender Specific Reference Ranges. For more information see Policy Stat Procedure [place] High Sensitivity Troponin (TNIH) and attachments. Platelets bldOrdered By: Dr. Zelaya on 09-16-2022 Platelets (Bld) [#/Vol] 367 10*3/uL 150-450 [facility] Serum or plasma albumin magda urement (mass/volume)Ordered By: Dr. Zelaya on 09-16-2022 Albumin [Mass/Vol] 3.6 g/dL 3.2-5.0 [facility] Serum or plasma albumin/glob ulin mass ratioOrdered By: Dr. Zelaya on 09-16-2022 Albumin/Globulin [Mass ratio] 0.8 {ratio} 0.9-2.4 [facility] Serum or plasma calcium magda urement (mass/volume)Ordered By: Dr. Zelaya on 09-16-2022 Calcium [Mass/Vol] 9.4 mg/dL 8.5-10.1 [facility] Serum or plasma creatinine m easurement (mass/volume)Ordered By: Dr. Zelaya on 09-16-2022 Creatinine [Mass/Vol] 0.68 mg/dL 0.55-1.02 [facility] Comment on above: The validity of the calculated GFR & GFRAA in patients over 70 years has not been determined. Clinical correlation is essential. Serum or plasma urea nitroge n measurement (mass/volume)Ordered By: Dr. Zelaya on 09-16-2022 Urea nitrogen [Mass/Vol] 10 mg/dL 7-18 [facility] Thin prep Papanicolaou smear with manual screeningOrdered By: Dr. Zelaya on 09-16-2022 Thin prep Papanicolaou smear with manual screening 11 U/L 15-37 [facility] Thin prep Papanicolaou smear with manual screening 7 5-15 [facility] XR CHEST 2V FRONTAL/LATon [facility] XR Chest PA and Lateralon IMPRESSION: No acute radiographic abnormality. Container Finishing Inspector: [facility] Transcribe Date/Time: Sep 16 2022 9:37A Dictated by : AMARIS DHILLON MD This examination was interpreted and the report reviewed and electronically signed by: AMARIS DHILLON MD on Sep 16 2022 9:37AM [facility] DIVISION OF RADIOLOGY * * *Final Report* * * DATE OF EXAM: Sep 16 2022 9:29AM WOX [id number] - XR CHEST 2V FRONTAL/LAT / PROCEDURE REASON: multiple diagnoses * * * * Physician Interpretation * * * * EXAMINATION: CHEST RADIOGRAPH (2 VIEW FRONTAL & LATERAL) CLINICAL HISTORY: Acute cough LEDBETTER (dyspnea on exertion) MQ: XC2_6 EXAM DATE/TIME: 09/16/2022 9:29 AM COMPARISON: No relevant prior studies available. RESULT: Lines, tubes, and devices: None. Lungs and pleura: No consolidation. No lung mass. No pleural effusion. No pneumothorax. Cardiomediastinal silhouette: Normal cardiomediastinal silhouette. Bones and soft tissues: Unremarkable. DIVISION OF RADIOLOGY Provider, Lian Jenny [facility] - 09/16/2022 * * *Final Report* * * DATE OF EXAM: Sep 16 2022 9:29AM WOX [id number] - XR CHEST 2V FRONTAL/LAT / PROCEDURE REASON: multiple diagnoses * * * * Physician Interpretation * * * * EXAMINATION: CHEST RADIOGRAPH (2 VIEW FRONTAL & LATERAL) CLINICAL HISTORY: Acute cough LEDBETTER (dyspnea on exertion) MQ: XC2_6 EXAM DATE/TIME: 09/16/2022 9:29 AM COMPARISON: No relevant prior studies available. RESULT: Lines, tubes, and devices: None. Lungs and pleura: No consolidation. No lung mass. No pleural effusion. No pneumothorax. Cardiomediastinal silhouette: Normal cardiomediastinal silhouette. Bones and soft tissues: Unremarkable. IMPRESSION IMPRESSION: No acute radiographic abnormality. Container Finishing Inspector: [facility] Transcribe Date/Time: Sep 16 2022 9:37A Dictated by : AMARIS DHILLON MD This examination was interpreted and the report reviewed and electronically signed by: AMARIS DHILLON MD on Sep 16 2022 9:37AM EST [facility] Radiology Study observation (narrative) [facility] XR Chest PA and LateralOrder ed By: [facility] Provider on 09-16-2022 [facility] Glucose Glucometer (BldC) [M ass/Vol]on 01-05-2022 Glucose [Mass/Vol] 99 mg/dL 74-106 [facility] Work Phone: Comment on above: MANAGEMENT OF PATIEN T CARE PER NURSING PROTOCOL Absolute lymphocyte counton 01-04-2022 Lymphocytes Auto (Unsp spec) [#/Vol] 1.74 10*3/uL 0.83-4.51 [facility] Work Phone: Basophil percentageon 2021 Basophils/100 WBC (Bld) 0.2 % 0-1 [facility] Work Phone: [phone] Eosinophils/100 WBC (Bld) 1.5 % 0-5 [facility] Work Phone: Neutrophils (Bld) [#/Vol] 8.3 10*3/uL 2.0-7.7 [facility] Work Phone: [phone] Neutrophils/100 WBC (Bld) 75.4 % 47-70 [facility] Work Phone: [phone] WBC (Bld) [#/Vol] 11.0 10*3/uL 4.4-11.0 [facility] Work Phone: [phone] Blood erythrocytes count (nu mber/volume)on 01-04-2022 RBC (Bld) [#/Vol] 4.34 10*6/uL 4.2-5.4 [facility] Work Phone: [phone] Blood hemoglobin measurement (mass/volume)on 01-04-2022 Hemoglobin (Bld) [Mass/Vol] 12.0 g/dL 12.0-15.0 [facility] Work Phone: [phone] Blood lymphocytes/100 leukoc yteson 01-04-2022 Lymphocytes/100 WBC (Bld) 15.9 % 19-41 [facility] Work Phone: Blood monocytes/100 leukocyt eson 01-04-2022 Monocytes/100 WBC (Bld) 6.5 % 0-10 [facility] Work Phone: [phone] Blood platelet mean volumeon 01-04-2022 Platelet mean volume (Bld) [Entitic vol] 10.3 fL 6.2-12.0 [facility] Work Phone: Determination of erythrocyte mean corpuscular volume (MCV)on 01-04-2022 MCV (RBC) [Entitic vol] 83.6 fL 81-99 [facility] Work Phone: Hematocrit Auto (Bld) [Volum e fraction]on 01-04-2022 Hematocrit (Bld) [Volume fraction] 36.3 % 37-47 [facility] Work Phone: Laboratory - Hematology and Cell countson 01-04-2022 Erythrocyte distribution width (RBC) [Entitic vol] 47.8 fL 35.1-43.9 [facility] Work Phone: Erythrocyte distribution width (RBC) [Ratio] 15.9 % 11.6-14.6 [facility] Work Phone: Immature granulocytes/100 WBC (Bld) 0.500 % 0.0-0.9 [facility] Work Phone: Comment on above: IG% - Immature Granu locytes (promyelocytes, myelocytes and metamyelocytes) > 1% indicates that a LEFT SHIFT is Present. MCH (RBC) [Entitic mass] 27.6 pg 27.0-32.0 [facility] Work Phone: [phone] Nucleated RBC/100 WBC (Bld) [Ratio] 0 % 0-5 [facility] Work Phone: MCHC Auto (RBC) [Mass/Vol]on 01-04-2022 MCHC (RBC) [Mass/Vol] 33.1 g/dL 32-36 [facility] Work Phone: Platelets bldon 01-04-2022 Platelets (Bld) [#/Vol] 290 10*3/uL 150-450 [facility] Work Phone: URINE OB DIP B/Oon 2 Glucose Ql (U) Negative Neg mg/dL [facility] Protein.monoclonal (U) [Mass/Vol] Negative Neg mg/dL [facility] URINE OB DIP B/Oon 2 Glucose Ql (U) Negative Neg mg/dL [facility] Protein.monoclonal (U) [Mass/Vol] Negative Neg mg/dL [facility] URINE OB DIP B/Oon 2 Glucose Ql (U) Negative Neg mg/dL [facility] Protein.monoclonal (U) [Mass/Vol] Negative Neg mg/dL [facility] Absolute lymphocyte counton 12-06-2021 Lymphocytes Auto (Unsp spec) [#/Vol] 1.96 10*3/uL 0.83-4.51 [facility] Work Phone: Basophil percentageon 2021 Basophils/100 WBC (Bld) 0.2 % 0-1 [facility] Work Phone: [phone] Eosinophils/100 WBC (Bld) 2.1 % 0-5 [facility] Work Phone: [phone] Neutrophils (Bld) [#/Vol] 6.1 10*3/uL 2.0-7.7 [facility] Work Phone: [phone] Neutrophils/100 WBC (Bld) 68.3 % 47-70 [facility] Work Phone: [phone] WBC (Bld) [#/Vol] 8.9 10*3/uL 4.4-11.0 [facility] Work Phone: [phone] Blood erythrocytes count (nu mber/volume)on 12-06-2021 RBC (Bld) [#/Vol] 4.36 10*6/uL 4.2-5.4 [facility] Work Phone: [phone] Blood hemoglobin measurement (mass/volume)on 12-06-2021 Hemoglobin (Bld) [Mass/Vol] 11.8 g/dL 12.0-15.0 [facility] Work Phone: [phone] Blood lymphocytes/100 leukoc yteson 12-06-2021 Lymphocytes/100 WBC (Bld) 22.1 % 19-41 [facility] Work Phone: [phone] Blood monocytes/100 leukocyt eson 12-06-2021 Monocytes/100 WBC (Bld) 7.1 % 0-10 [facility] Work Phone: [phone] Blood platelet mean volumeon 12-06-2021 Platelet mean volume (Bld) [Entitic vol] 9.6 fL 6.2-12.0 [facility] Work Phone: Determination of erythrocyte mean corpuscular volume (MCV)on 12-06-2021 MCV (RBC) [Entitic vol] 82.8 fL 81-99 [facility] Work Phone: Hematocrit Auto (Bld) [Volum e fraction]on 12-06-2021 Hematocrit (Bld) [Volume fraction] 36.1 % 37-47 [facility] Work Phone: [phone] INR in Blood by Coagulation assayon 12-06-2021 INR Coag (Bld) [Relative time] 1.0 {INR} [facility] Work Phone: [phone] Laboratory - Coagulationon 0 12-06-2021 aPTT Coag (Bld) [Time] 34.0 s 24.1-36.2 [facility] Work Phone: [phone] PT Coag (PPP) [Time] 13.3 s 11.7-14.9 [facility] Work Phone: [phone] Laboratory - Hematology and Cell countson 12-06-2021 Erythrocyte distribution width (RBC) [Entitic vol] 48.2 fL 35.1-43.9 [facility] Work Phone: [phone] Erythrocyte distribution width (RBC) [Ratio] 15.9 % 11.6-14.6 [facility] Work Phone: [phone] Immature granulocytes/100 WBC (Bld) 0.200 % 0.0-0.9 [facility] Work Phone: [phone] Comment on above: IG% - Immature Granu locytes (promyelocytes, myelocytes and metamyelocytes) > 1% indicates that a LEFT SHIFT is Present. MCH (RBC) [Entitic mass] 27.1 pg 27.0-32.0 [facility] Work Phone: [phone] Nucleated RBC/100 WBC (Bld) [Ratio] 0 % 0-5 [facility] Work Phone: [phone] MCHC Auto (RBC) [Mass/Vol]on 12-06-2021 MCHC (RBC) [Mass/Vol] 32.7 g/dL 32-36 [facility] Work Phone: [phone] Panel Informationon 12-06 Fibrinogen 471 mg/dl 203-444 [facility] Work Phone: [phone] Platelets bldon 12-06-2021 Platelets (Bld) [#/Vol] 325 10*3/uL 150-450 [facility] Work Phone: OBSTETRIC ULTRASOUND WHIon 0 12-04-2021 [facility] URINE OB DIP B/Oon 2 Glucose Ql (U) Negative Neg mg/dL [facility] Protein.monoclonal (U) [Mass/Vol] Negative Neg mg/dL [facility] URINE OB DIP B/Oon 2 Glucose Ql (U) Negative Neg mg/dL [facility] Protein.monoclonal (U) [Mass/Vol] Negative Neg mg/dL [facility] URINE OB DIP B/Oon 2 Glucose Ql (U) Negative Neg mg/dL [facility] Protein.monoclonal (U) [Mass/Vol] Negative Neg mg/dL [facility] URINE OB DIP B/Oon 2 Glucose Ql (U) Negative Neg mg/dL [facility] Protein.monoclonal (U) [Mass/Vol] Negative Neg mg/dL [facility] URINE OB DIP B/Oon 2 Glucose Ql (U) Negative Neg mg/dL [facility] Protein.monoclonal (U) [Mass/Vol] Negative Neg mg/dL [facility] OBSTETRIC ULTRASOUND WHIon 0 08-13-2021 [facility] URINE OB DIP B/Oon 2 Glucose Ql (U) Negative Neg mg/dL [facility] Protein.monoclonal (U) [Mass/Vol] Negative Neg mg/dL [facility] URINE OB DIP B/Oon 2 Glucose Ql (U) Negative Neg mg/dL [facility] Protein.monoclonal (U) [Mass/Vol] Negative Neg mg/dL [facility] Vital Signs Date Time Vital Sign Value Performing Clinician Facility 11-24-2024 08:58-0400 Body mass index (BMI) [Ratio] 32.95 kg/m2 Kasey Yang MD Work Phone: [facility] 11-24-2024 08:58-0400 Body weight 89.81 kg Kasey Yang MD Work Phone: [facility] 11-24-2024 08:58-0400 Diastolic blood pressure 68 mm[Hg] Kasey Yang MD Work Phone: [facility] 11-24-2024 08:58-0400 Systolic blood pressure 124 mm[Hg] Kasey Yang MD Work Phone: [facility] 11-15-2024 14:53-0400 Body temperature 97.8 [degF] Dr. Kathy Vyas MD Work Phone: [facility] 11-15-2024 14:53-0400 Diastolic blood pressure 64 mm[Hg] Dr. Kathy Vyas MD Work Phone: [facility] 11-15-2024 14:53-0400 Heart rate 90 /min Dr. Ktahy Vyas MD Work Phone: [facility] 11-15-2024 14:53-0400 Respiratory rate 16 /min Dr. Kathy Vyas MD Work Phone: [facility] 11-15-2024 14:53-0400 SaO2% (BldA) [Mass fraction] 99 % Dr. Kathy Vyas MD Work Phone: [facility] 11-15-2024 14:53-0400 Systolic blood pressure 135 mm[Hg] Dr. Kathy Vyas MD Work Phone: [facility] 11-15-2024 10:46-0400 Body height 167.[address] Kathy Vyas MD Work Phone: [facility] 11-15-2024 10:46-0400 Body mass index (BMI) [Ratio] 31.5 kg/m2 Dr. Kathy Vyas MD Work Phone: [facility] 11-15-2024 10:46-0400 Body weight 88.[address] Kathy Vyas MD Work Phone: [facility] 11-15-2024 10:05-0400 Body mass index (BMI) [Ratio] 32.31 kg/m2 Dante Waite MD Work Phone: [facility] 11-15-2024 10:05-0400 Body weight 88.18 kg Dante Waite MD Work Phone: [facility] 11-15-2024 10:05-0400 Diastolic blood pressure 80 mm[Hg] Dante Waite MD Work Phone: [facility] 11-15-2024 10:05-0400 Systolic blood pressure 122 mm[Hg] Dante Waite MD Work Phone: [facility] 11-12-2024 10:49-0400 Body mass index (BMI) [Ratio] 31.75 kg/m2 Dante Waite MD Work Phone: [facility] 11-12-2024 10:49-0400 Body weight 86.64 kg Dante Waite MD Work Phone: [facility] 11-12-2024 10:49-0400 Diastolic blood pressure 78 mm[Hg] Dante Waite MD Work Phone: [facility] 11-12-2024 10:49-0400 Systolic blood pressure 124 mm[Hg] Dante Waite MD Work Phone: [facility] 11-10-2024 10:41-0400 Body mass index (BMI) [Ratio] 31.91 kg/m2 Dante Waite MD Work Phone: [facility] 11-10-2024 10:41-0400 Body weight 87.09 kg Dante Waite MD Work Phone: [facility] 11-10-2024 10:41-0400 Diastolic blood pressure 78 mm[Hg] Dante Waite MD Work Phone: [facility] 11-10-2024 10:41-0400 Systolic blood pressure 116 mm[Hg] Dante Waite MD Work Phone: [facility] 10-27-2024 08:42-0400 Body mass index (BMI) [Ratio] 31.41 kg/m2 Dante Waite MD Work Phone: [facility] 10-27-2024 08:42-0400 Body weight 85.73 kg Dante Waite MD Work Phone: [facility] 10-27-2024 08:42-0400 Diastolic blood pressure 72 mm[Hg] Dante Waite MD Work Phone: [facility] 10-27-2024 08:42-0400 Systolic blood pressure 114 mm[Hg] Dante Waite MD Work Phone: [facility] 10-13-2024 08:28-0400 Body mass index (BMI) [Ratio] 31.08 kg/m2 Dante Waite MD Work Phone: [facility] 10-13-2024 08:28-0400 Body weight 84.82 kg Dante Waite MD Work Phone: [facility] 10-13-2024 08:28-0400 Diastolic blood pressure 72 mm[Hg] Dante Waite MD Work Phone: [facility] 10-13-2024 08:28-0400 Systolic blood pressure 110 mm[Hg] Dante Waite MD Work Phone: [facility] 09-27-2024 08:44-0400 Body mass index (BMI) [Ratio] 30.91 kg/m2 Tara Parks APRN.CNM Work Phone: [facility] 09-27-2024 08:44-0400 Body temperature 98.01 [degF] Tara Parks APRN.CNM Work Phone: [facility] 09-27-2024 08:44-0400 Body weight 84.37 kg Tara Parks APRN.CNRenato Work Phone: [facility] 09-27-2024 08:44-0400 Diastolic blood pressure 73 mm[Hg] Tara Parks APRN.CNM Work Phone: [facility] 09-27-2024 08:44-0400 Heart rate 103 /min Tara Parks APRN.CNM Work Phone: [facility] 09-27-2024 08:44-0400 Systolic blood pressure 115 mm[Hg] Tara Parks APRN.CNM Work Phone: [facility] 09-15-2024 08:23-0400 Body mass index (BMI) [Ratio] 30.75 kg/m2 Dante Waite MD Work Phone: [facility] 09-15-2024 08:23-0400 Body weight 83.92 kg Dante Waite MD Work Phone: [facility] 09-15-2024 08:23-0400 Diastolic blood pressure 68 mm[Hg] Dante Waite MD Work Phone: [facility] 09-15-2024 08:23-0400 Systolic blood pressure 110 mm[Hg] Dante Waite MD Work Phone: [facility] 08-18-2024 08:21-0400 Body mass index (BMI) [Ratio] 29.75 kg/m2 Dante Waite MD Work Phone: [facility] 08-18-2024 08:21-0400 Body weight 81.19 kg Dante Waite MD Work Phone: [facility] 08-18-2024 08:21-0400 Diastolic blood pressure 68 mm[Hg] Dante Waite MD Work Phone: [facility] 08-18-2024 08:21-0400 Systolic blood pressure 106 mm[Hg] Dante Waite MD Work Phone: [facility] 07-21-2024 15:55-0400 Body mass index (BMI) [Ratio] 29.59 kg/m2 Macarena Perez APRN.CRATE BUILDER Work Phone: [facility] 07-21-2024 15:55-0400 Body weight 80.74 kg Macarena Perez APRN.CRATE BUILDER Work Phone: [facility] 07-21-2024 15:55-0400 Diastolic blood pressure 60 mm[Hg] Macarena Perez APRN.CRATE BUILDER Work Phone: [facility] 07-21-2024 15:55-0400 Systolic blood pressure 110 mm[Hg] Macarena Perez ROGERS Work Phone: [facility] 06-23-2024 09:59-0400 Body mass index (BMI) [Ratio] 28.75 kg/m2 Dante Waiet MD Work Phone: [facility] 06-23-2024 09:59-0400 Body weight 78.47 kg Dante Waite MD Work Phone: [facility] 06-23-2024 09:59-0400 Diastolic blood pressure 60 mm[Hg] Dante Waite MD Work Phone: [facility] 06-23-2024 09:59-0400 Systolic blood pressure 122 mm[Hg] Dante Waite MD Work Phone: [facility] 06-02-2024 11:23-0500 Body mass index (BMI) [Ratio] 28.42 kg/m2 Dante Waite MD Work Phone: [facility] 06-02-2024 11:23-0500 Body weight 77.56 kg Dante Waite MD Work Phone: [facility] 06-02-2024 11:23-0500 Diastolic blood pressure 68 mm[Hg] Dante Waite MD Work Phone: [facility] 06-02-2024 11:23-0500 Systolic blood pressure 122 mm[Hg] Dante Waite MD Work Phone: [facility] 05-18-2024 08:26-0500 Body mass index (BMI) [Ratio] 27.59 kg/m2 Dante Waite MD Work Phone: [facility] 05-18-2024 08:26-0500 Body weight 75.3 kg Dante Waite MD Work Phone: [facility] 05-18-2024 08:26-0500 Diastolic blood pressure 68 mm[Hg] Dante Waite MD Work Phone: [facility] 05-18-2024 08:26-0500 Systolic blood pressure 128 mm[Hg] Dante Waite MD Work Phone: [facility] 05-04-2024 08:48-0500 Body mass index (BMI) [Ratio] 27.92 kg/m2 Dante Waite MD Work Phone: [facility] 05-04-2024 08:48-0500 Body weight 76.2 kg Dante Waite MD Work Phone: [facility] 05-04-2024 08:48-0500 Diastolic blood pressure 64 mm[Hg] Dante Waite MD Work Phone: [facility] 05-04-2024 08:48-0500 Systolic blood pressure 110 mm[Hg] Dante Waite MD Work Phone: [facility] 04-19-2024 08:19-0500 Body mass index (BMI) [Ratio] 27.92 kg/m2 Mai [place] [employer] W[employer] INSULATOR.[employer] BUILDER Work Phone: [facility] 04-19-2024 08:19-0500 Body weight 76.2 kg Mai Franny [employer]AD WIRE INSULATOR.[employer] BUILDER Work Phone: [facility] 04-19-2024 08:19-0500 Diastolic blood pressure 66 mm[Hg] Mai [place] [employer] WIRE INSULATOR.[employer] BUILDER Work Phone: [facility] 04-19-2024 08:19-0500 Systolic blood pressure 122 mm[Hg] Mai Franny BEAD WIRE INSULATOR.CRATE BUILDER Work Phone: [facility] 10-10-2023 13:44-0400 Body height 165.2 cm Dante Waite MD Work Phone: [facility] 10-10-2023 13:44-0400 Body mass index (BMI) [Ratio] 27.46 kg/m2 Dante Waite MD Work Phone: [facility] 10-10-2023 13:44-0400 Body weight 74.93 kg Dante Waite MD Work Phone: [facility] 10-10-2023 13:44-0400 Diastolic blood pressure 68 mm[Hg] Dante Waite MD Work Phone: [facility] 10-10-2023 13:44-0400 Systolic blood pressure 108 mm[Hg] Dante Waite MD Work Phone: [facility] 09-16-2022 10:55-0400 Diastolic blood pressure 69 mm[Hg] [facility] 09-16-2022 10:55-0400 Heart rate 72 /min [facility] 09-16-2022 10:55-0400 Respiratory rate 15 /min [facility] 09-16-2022 10:55-0400 SaO2% (BldA) [Mass fraction] 98 % [facility] 09-16-2022 10:55-0400 Systolic blood pressure 127 mm[Hg] [facility] 09-16-2022 09:55-0400 Body height 167.[address] [facility] 09-16-2022 09:55-0400 Body mass index (BMI) [Ratio] 27.4 kg/m2 [facility] 09-16-2022 09:55-0400 Body temperature 97.8 [degF] [facility] 09-16-2022 09:55-0400 Body weight 77.[address] [facility] 09-16-2022 08:55-0400 Body temperature 99.19 [degF] Best Lane MD Work Phone: [facility] 09-16-2022 08:55-0400 Body weight 77.[address] MD Work Phone: [facility] 09-16-2022 08:55-0400 Diastolic blood pressure 80 mm[Hg] Best Lane MD Work Phone: [facility] 09-16-2022 08:55-0400 Heart rate 102 /min Best [address] MD Work Phone: [facility] 09-16-2022 08:55-0400 Respiratory rate 21 /min Best [address] MD Work Phone: [facility] 09-16-2022 08:55-0400 SaO2% (BldA) [Mass fraction] 99 % Best [address] MD Work Phone: [facility] 09-16-2022 08:55-0400 Systolic blood pressure 110 mm[Hg] Best Lane MD Work Phone: [facility] 03-05-2022 11:36-0500 Body weight 76.2 kg Alban Hooker MD Work Phone: [facility] 03-05-2022 11:36-0500 Diastolic blood pressure 70 mm[Hg] Alban Hooker MD Work Phone: [facility] 03-05-2022 11:36-0500 Systolic blood pressure 112 mm[Hg] Alban Hooker MD Work Phone: [facility] 02-14-2022 10:36-0400 Body weight 74.84 kg Kasey Yang MD Work Phone: [facility] 02-14-2022 10:36-0400 Diastolic blood pressure 70 mm[Hg] Kasey Yang MD Work Phone: [facility] 02-14-2022 10:36-0400 Systolic blood pressure 118 mm[Hg] Kasey Yang MD Work Phone: [facility] 01-17-2022 10:54-0400 Body weight 74.84 kg Dante Waite MD Work Phone: [facility] 01-17-2022 10:54-0400 Diastolic blood pressure 72 mm[Hg] Dante Waite MD Work Phone: [facility] 01-17-2022 10:54-0400 Systolic blood pressure 112 mm[Hg] Dante Waite MD Work Phone: [facility] 01-05-2022 16:14-0400 Body temperature 98.9 [degF] [facility] Work Phone: 01-05-2022 16:14-0400 Diastolic blood pressure 75 mm[Hg] [facility] Work Phone: 01-05-2022 16:14-0400 Heart rate 93 /min [facility] Work Phone: 01-05-2022 16:14-0400 Respiratory rate 14 /min [facility] Work Phone: 01-05-2022 16:14-0400 SaO2% (BldA) [Mass fraction] 98 % [facility] Work Phone: 01-05-2022 16:14-0400 Systolic blood pressure 114 mm[Hg] [facility] Work Phone: 01-04-2022 07:15-0400 Body height 167.[address] [facility] Work Phone: 01-04-2022 07:15-0400 Body mass index (BMI) [Ratio] 28.7 kg/m2 [facility] Work Phone: 01-04-2022 07:15-0400 Body weight 80.[address] [facility] Work Phone: 01-01-2022 11:25-0400 Body weight 81.65 kg Dante Waite MD Work Phone: [facility] 01-01-2022 11:25-0400 Diastolic blood pressure 86 mm[Hg] Dante Waite MD Work Phone: [facility] 01-01-2022 11:25-0400 Systolic blood pressure 136 mm[Hg] Dante Waite MD Work Phone: [facility] 12-25-2021 09:18-0400 Body weight 78.93 kg Kasey Yang MD Work Phone: [facility] 12-25-2021 09:18-0400 Diastolic blood pressure 68 mm[Hg] Kasey Yang MD Work Phone: [facility] 12-25-2021 09:18-0400 Systolic blood pressure 110 mm[Hg] Kasey Yang MD Work Phone: [facility] 12-19-2021 15:10-0400 Body weight 79.83 kg Dante Waite MD Work Phone: [facility] 12-19-2021 15:10-0400 Diastolic blood pressure 72 mm[Hg] Dante Waite MD Work Phone: [facility] 12-19-2021 15:10-0400 Systolic blood pressure 104 mm[Hg] Dante Waite MD Work Phone: [facility] 12-13-2021 11:44-0400 Body weight 78.93 kg Dante Waite MD Work Phone: [facility] 12-13-2021 11:44-0400 Diastolic blood pressure 68 mm[Hg] Dante Waite MD Work Phone: [facility] 12-13-2021 11:44-0400 Systolic blood pressure 108 mm[Hg] Dante Waite MD Work Phone: [facility] 12-06-2021 17:45-0400 Heart rate 91 /min [facility] Work Phone: 12-06-2021 17:45-0400 SaO2% (BldA) [Mass fraction] 98 % [facility] Work Phone: 12-06-2021 17:44-0400 Diastolic blood pressure 85 mm[Hg] [facility] Work Phone: 12-06-2021 17:44-0400 Systolic blood pressure 139 mm[Hg] [facility] Work Phone: 12-06-2021 17:42-0400 Body height 167.[address] [facility] Work Phone: 12-06-2021 17:42-0400 Body mass index (BMI) [Ratio] 28.3 kg/m2 [facility] Work Phone: 12-06-2021 17:42-0400 Body weight [address] [facility] Work Phone: 12-04-2021 09:46-0400 Body weight 78.93 kg Dante Waite MD Work Phone: [facility] 12-04-2021 09:46-0400 Diastolic blood pressure 74 mm[Hg] Dante Waite MD Work Phone: [facility] 12-04-2021 09:46-0400 Systolic blood pressure 102 mm[Hg] Dante Waite MD Work Phone: [facility] 11-20-2021 09:52-0400 Body weight 78.02 kg Dante Waite MD Work Phone: [facility] 11-20-2021 09:52-0400 Diastolic blood pressure 64 mm[Hg] Dante Waite MD Work Phone: [facility] 11-20-2021 09:52-0400 Systolic blood pressure 102 mm[Hg] Dante Waite MD Work Phone: [facility] 11-07-2021 13:25-0400 Body weight 79.38 kg Dante Waite MD Work Phone: [facility] 11-07-2021 13:25-0400 Diastolic blood pressure 70 mm[Hg] Dante Waite MD Work Phone: [facility] 11-07-2021 13:25-0400 Systolic blood pressure 124 mm[Hg] Dante Waite MD Work Phone: [facility] 10-09-2021 10:01-0400 Body weight 78.47 kg Dante Waite MD Work Phone: [facility] 10-09-2021 10:01-0400 Diastolic blood pressure 62 mm[Hg] Dante Waite MD Work Phone: [facility] 10-09-2021 10:01-0400 Systolic blood pressure 118 mm[Hg] Dante Waite MD Work Phone: [facility] 09-11-2021 09:38-0400 Body weight 75.75 kg Dante Waite MD Work Phone: [facility] 09-11-2021 09:38-0400 Diastolic blood pressure 68 mm[Hg] Dante Waite MD Work Phone: [facility] 09-11-2021 09:38-0400 Systolic blood pressure 114 mm[Hg] Dante Waite MD Work Phone: [facility] 08-13-2021 09:43-0400 Body weight 72.58 kg Dante Waite MD Work Phone: [facility] 08-13-2021 09:43-0400 Diastolic blood pressure 66 mm[Hg] Dante Waite MD Work Phone: [facility] 08-13-2021 09:43-0400 Systolic blood pressure 108 mm[Hg] Dante Waite MD Work Phone: [facility] 07-20-2021 09:50-0400 Body weight 71.22 kg Dante Waite MD Work Phone: [facility] 07-20-2021 09:50-0400 Diastolic blood pressure 66 mm[Hg] Dante Waite MD Work Phone: [facility] 07-20-2021 09:50-0400 Systolic blood pressure 118 mm[Hg] Dante Waite MD Work Phone: [facility] Encounters Encounter Date Encounter Type Care Provider Facility Start: 11-30-2024 ambulatory Dante Wylie y:[facility] Start: 11-24-2024 End: 11-24-2024 Patient encounter procedure Kasey Yang MD Work Phone: OB/Gynecology Comment on above: Supervision of high risk in third trimester (HCC) (Primary Dx); Hx of preeclampsia, prior , currently (HCC); Breech presentation with problem, single or unspecified fetus (HCC); Anemia during in third trimester (HCC); 38 weeks gestation of (HCC) Start: 11-24-2024 End: 11-24-2024 ambulatory KASEY YANG Facility:[facility] Start: 11-23-2024 End: 11-23-2024 [facility] Start: 11-23-2024 End: 11-23-2024 Patient encounter [facility] Comment on above: Population Health Na vigation Outreach ( to PCP/OB/) Start: 11-17-2024 End: 11-17-2024 ambulatory KATHY VYAS Facility:[facility] Start: 11-15-2024 End: 11-15-2024 Patient encounter procedure Tara Parks JUMA -[facility] Work Phone: Comment on above: 37 weeks gestation o f (HCC) (Primary Dx); Supervision of high risk in third trimester (HCC) Start: 11-15-2024 End: 11-15-[address] Kathy Vyas MD Work Phone: -[facility] Start: 11-12-2024 End: 11-12-2024 Patient encounter procedure Dante Waite MD Work Phone: OB/Gynecology Comment on above: Supervision of high risk in third trimester (HCC) (Primary Dx); Hx of preeclampsia, prior , currently (HCC); Breech presentation with problem, single or unspecified fetus (HCC); 36 weeks gestation of (HCC); Anemia during in third trimester (HCC) Start: 11-12-2024 End: 11-12-2024 ambulatory KATHY VYAS Facility:[facility] Start: 11-10-2024 End: 11-10-2024 Patient encounter procedure Dante Waite MD Work Phone: OB/Gynecology Comment on above: Supervision of high risk in third trimester (HCC) (Primary Dx); Hx of preeclampsia, prior , currently (HCC); 36 weeks gestation of (HCC); Breech presentation with problem, single or unspecified fetus (HCC) Start: 11-10-2024 End: 11-11-2024 ambulatory Dante Waite MD Work Phone: OB/Gynecology Comment on above: Inversion Questions Start: 10-27-2024 End: 10-27-2024 Patient encounter procedure Dante Waite MD Work Phone: OB/Gynecology Comment on above: Supervision of high risk in third trimester (HCC) (Primary Dx); Hx of preeclampsia, prior , currently (HCC); Anemia during in third trimester (HCC); 34 weeks gestation of (HCC) Start: 10-27-2024 End: 10-27-2024 ambulatory [facility] Facility:[facility] Start: 10-13-2024 End: 10-13-2024 Patient encounter procedure Dante Waite MD Work Phone: OB/Gynecology Comment on above: Supervision of high risk in third trimester (HCC) (Primary Dx); Hx of preeclampsia, prior , currently (HCC); Anemia during in third trimester (HCC); 32 weeks gestation of (HCC) Start: 10-13-2024 End: 10-13-2024 [facility] Facility:[facility] Start: 10-04-2024 End: 10-04-2024 Telephone encounter Dante Waite MD Work Phone: OB/Gynecology Comment on above: Breast Pump Start: 09-27-2024 End: 11-27-2024 Follow-up encounter Tara Parks APRN.CNM Work Phone: OB/Gynecology Start: 09-27-2024 End: 09-27-2024 [facility] Facility:[facility] Start: 09-27-2024 End: 09-27-2024 Patient encounter procedure Tara Parks APRN.CNM Work Phone: OB/Gynecology Comment on above: Supervision of high risk in third trimester (HCC) (Primary Dx); 30 weeks gestation of (HCC); Hx of preeclampsia, prior , currently (HCC); Hx of gestational diabetes in prior , currently (HCC); Anemia during in third trimester (HCC); Urinary frequency; Fever, unspecified fever cause Start: 09-15-2024 End: 09-16-2024 Follow-up encounter Dante Waite MD Work Phone: OB/Gynecology Start: 09-15-2024 End: 09-15-2024 Patient encounter procedure Dante Waite MD Work Phone: OB/Gynecology Comment on above: Supervision of high risk in third trimester (HCC) (Primary Dx); 28 weeks gestation of (HCC); Need for vaccination Start: 09-15-2024 End: 09-15-2024 ambulatory KATHY E MIEDEL Facility:[facility] Start: 08-18-2024 End: 08-18-2024 Patient encounter procedure Dante Waite MD Work Phone: OB/Gynecology Comment on above: Supervision of high risk in second trimester (HCC) (Primary Dx); 24 weeks gestation of (HCC); Screening for diabetes mellitus Start: 08-18-2024 End: 08-18-2024 [facility] Start: 07-21-2024 End: 07-21-2024 [facility] Facility:[facility] Start: 07-21-2024 End: 07-21-2024 Patient encounter procedure Macarena Perez APRN.CNP Work Phone: OB/Gynecology Comment on above: Supervision of high risk in second trimester (HCC) (Primary Dx); 20 weeks gestation of (HCC); Hx of preeclampsia, prior , currently (HCC); Hx of gestational diabetes in prior , currently (HCC) Start: 07-21-2024 End: 07-21-2024 ambulatory KATHY E MIEDEL Facility:[facility] Start: 06-23-2024 End: 06-23-2024 ambulatory [facility] Facility:[facility] Start: 06-23-2024 End: 06-23-2024 Patient encounter procedure Dante Waite MD Work Phone: OB/Gynecology Comment on above: Encounter for superv ision of normal in multigravida (Primary Dx); Hx of preeclampsia, prior , currently ; 16 weeks gestation of Start: 06-02-2024 End: 06-02-2024 Patient encounter procedure Dante Waite MD Work Phone: OB/Gynecology Comment on above: Hx of preeclampsia, prior , currently (Primary Dx); Encounter for supervision of normal in multigravida; 13 weeks gestation of Start: 06-02-2024 End: 06-02-2024 E-mail encounter from caregiver Dante Waite MD Work Phone: OB/Gynecology Start: 06-02-2024 End: 08-02-2024 Follow-up encounter Kasey Yang MD Work Phone: OB/Gynecology Start: 06-02-2024 End: 06-02-2024 ambulatory Dante Waite MD Work Phone: OB/Gynecology Comment on above: ultrasound Start: 06-02-2024 End: 06-02-2024 Patient encounter procedure [employer] [facility] Comment on above: Encounter for antena holly screening for malformation using ultrasound (Primary Dx); 13 weeks gestation of Start: 05-18-2024 End: 05-18-2024 ambulatory KATHY Gianfranco VYAS Facility:[facility] Start: 05-18-2024 End: 05-18-2024 Patient encounter procedure Dante Waite MD Work Phone: OB/Gynecology Comment on above: Encounter for superv ision of normal in multigravida (Primary Dx); Hx of preeclampsia, prior , currently ; 11 weeks gestation of Start: 05-04-2024 End: 05-04-2024 ambulatory Dante Waite MD Work Phone: OB/Gynecology Comment on above: Ultrasound today Start: 05-04-2024 End: 05-04-2024 Patient encounter procedure Dante Waite MD Work Phone: OB/Gynecology Comment on above: Encounter for superv ision of normal in multigravida (Primary Dx); Hx of preeclampsia, prior , currently ; 9 weeks gestation of size consisten t with dates during in first trimester (Primary Dx); 9 weeks gestation of Start: 04-19-2024 End: 04-19-2024 ambulatory KATHY [facility]franco [employer] Facility:[facility] Start: 04-19-2024 End: 04-19-2024 Patient encounter procedure Mai Blanton APRN.CRATE BUILDER Work Phone: OB/Gynecology Comment on above: with uncer tain dates, antepartum (Primary Dx); Encounter for supervision of normal in multigravida; 7 weeks gestation of ; Hx of preeclampsia, prior , currently Start: 03-24-2024 End: 03-24-2024 ambulatory Dante Waite MD Work Phone: OB/Gynecology Comment on above: Exercise while Pregn ant Start: 03-23-2024 End: 03-23-2024 ambulatory Dante Waite MD Work Phone: OB/Gynecology Comment on above: ! Start: 10-10-2023 End: 10-10-2023 Patient encounter procedure Dante Waite MD Work Phone: OB/Gynecology Comment on above: Encounter for gyneco logical examination (general) (routine) without abnormal findings (Primary Dx) Start: 10-10-2023 End: 10-10-2023 Patient encounter status Dante Waite MD Work Phone: [facility] Start: 09-19-2023 Refill Dante owens MD Work Phone: OB/Gynecology Comment on above: Refill Request Start: 07-07-2023 Refill Dante owens MD Work Phone: OB/Gynecology Comment on above: Refill Request Start: 03-10-2023 ambulatory Kasey Yang MD Work Phone: OB/Gynecology Comment on above: Urinary Tract Infect ion Start: 03-06-2023 ambulatory Dante owens MD Work Phone: OB/Gynecology Comment on above: Yeast Infection Start: 09-16-2022 End: 09-16-2022 Emergency department patient visit [facility]Emergency Department Start: 09-16-2022 End: 09-16-2022 Subsequent hospital visit by physician Abiodun [facility] Work Phone: Radiology Comment on above: Acute cough [R05.1] Start: 09-16-2022 End: 09-16-[address] MD Work Phone: [facility] Comment on above: Acute cough (Primary Dx); Discomfort in chest; LEDBETTER (dyspnea on exertion) Start: 08-05-2022 Refill Dante owens MD Work Phone: OB/Gynecology Comment on above: Refill Request Start: 07-29-2022 Refill Dante owens MD Work Phone: OB/Gynecology Comment on above: Refill Request Start: 07-03-2022 ambulatory Dante owens MD Work Phone: OB/Gynecology Comment on above: Control Start: 03-08-2022 Telephone encounter Alban dewey MD Work Phone: OB/Gynecology Comment on above: Results Start: 03-06-2022 Refill Kasey Yang MD Work Phone: OB/Gynecology Comment on above: Refill Request Start: 03-05-2022 End: 03-05-2022 Patient encounter procedure Alban Hooker MD Work Phone: OB/Gynecology Comment on above: Vaginal discharge (P rimary Dx); Vaginal odor Start: 03-04-2022 ambulatory Dante owens MD Work Phone: OB/Gynecology Comment on above: Discharge Start: 02-14-2022 End: 02-14-2022 Patient encounter procedure Kasey Yang MD Work Phone: OB/Gynecology Comment on above: care and examination (Primary Dx) Start: 01-17-2022 End: 01-17-2022 Patient encounter procedure Dante Waite MD Work Phone: OB/Gynecology Comment on above: Routine f ollow-up (Primary Dx) Start: 01-04-2022 Telephone encounter Dante Waite MD Work Phone: OB/Gynecology Comment on above: Ob Delivery Note Start: 01-04-2022 End: 01-05-2022 Evaluation and management of inpatient [facility] Start: 01-01-2022 End: 01-01-2022 Patient encounter procedure Dante Waite MD Work Phone: OB/Gynecology Comment on above: 38 weeks gestation o f (Primary Dx); Gestational diabetes mellitus, class A1; Hx of preeclampsia, prior , currently Start: 12-25-2021 End: 12-25-2021 Patient encounter procedure Kasey Yang MD Work Phone: OB/Gynecology Comment on above: Gestational diabetes mellitus, class A1 (Primary Dx); Anemia during in second trimester; Hx of preeclampsia, prior , currently ; 37 weeks gestation of Start: 12-19-2021 End: 12-19-2021 Patient encounter procedure Dante Waite MD Work Phone: OB/Gynecology Comment on above: 36 weeks gestation o f (Primary Dx); Diet controlled gestational diabetes mellitus (GDM) in third trimester; Supervision of other high risk pregnancies, first trimester Start: 12-13-2021 End: 12-13-2021 Patient encounter procedure Dante Waite MD Work Phone: OB/Gynecology Comment on above: 35 weeks gestation o f (Primary Dx); Diet controlled gestational diabetes mellitus (GDM) in third trimester; Supervision of other high risk pregnancies, first trimester Start: 12-06-2021 End: 12-06-2021 ambulatory [facility] Work Phone: Start: 12-06-2021 End: 12-06-2021 Patient encounter procedure [facility] Start: 12-04-2021 End: 12-04-2021 Patient encounter procedure Manjula Diaz MD Work Phone: Maternal Medicine Comment on above: Gestational diabetes mellitus, class A1 (Primary Dx); 34 weeks gestation of Diet controlled gest ational diabetes mellitus (GDM) in third trimester (Primary Dx); 34 weeks gestation of ; Need for Tdap vaccination Start: 11-20-2021 End: 11-20-2021 Patient encounter procedure Dante Waite MD Work Phone: OB/Gynecology Comment on above: Diet controlled gest ational diabetes mellitus (GDM) in third trimester (Primary Dx); 32 weeks gestation of ; Supervision of other high risk pregnancies, third trimester Start: 11-07-2021 End: 11-07-2021 Patient encounter procedure Dante Waite MD Work Phone: OB/Gynecology Comment on above: 30 weeks gestation o f (Primary Dx); Diet controlled gestational diabetes mellitus (GDM) in third trimester Start: 11-01-2021 Refill Dante owens MD Work Phone: OB/Gynecology Comment on above: Refill Request Start: 10-17-2021 Refill Dante owens MD Work Phone: OB/Gynecology Start: 10-12-2021 ambulatory Dante owens MD Work Phone: OB/Gynecology Comment on above: Glucose/Blood Sugar Checks Start: 10-09-2021 Telephone encounter Dante Waite MD Work Phone: OB/Gynecology Comment on above: Results FMLA Paperwork Start: 10-09-2021 End: 10-09-2021 Patient encounter procedure Dante Waite MD Work Phone: OB/Gynecology Comment on above: 26 weeks gestation o f (Primary Dx); History of delivery, currently ; Encounter for supervision of other normal in second trimester Start: 09-11-2021 End: 09-11-2021 Patient encounter procedure Dante Waite MD Work Phone: OB/Gynecology Comment on above: 22 weeks gestation o f (Primary Dx); History of delivery, currently ; Encounter for supervision of other normal in second trimester Start: 08-30-2021 Refill Dante owens MD Work Phone: OB/Gynecology Comment on above: Refill Request Start: 08-17-2021 Telephone encounter Dante Waite MD Work Phone: OB/Gynecology Comment on above: CAM Order Start: 08-17-2021 End: 08-17-2021 Nursing evaluation of patient and report Nurse Computer Analyst Supervisor [facility] Work Phone: OB/Gynecology Comment on above: History of d tracy, currently (Primary Dx) Start: 08-15-2021 ambulatory Dante owens MD Work Phone: OB/Gynecology Comment on above: Progesterone shots Start: 08-13-2021 End: 08-13-2021 Patient encounter procedure Manjula Diaz MD Work Phone: Maternal Medicine Comment on above: Encounter for anatomic survey (Primary Dx); 18 weeks gestation of Encounter for superv ision of other normal in second trimester (Primary Dx); 18 weeks gestation of Start: 08-07-2021 ambulatory Dante owens MD Work Phone: OB/Gynecology Comment on above: Progesterone Shots Start: 07-20-2021 End: 07-20-2021 Patient encounter procedure Dante Waite MD Work Phone: OB/Gynecology Comment on above: 15 weeks gestation o f (Primary Dx); Encounter for supervision of other normal in second trimester Start: 07-17-2021 Telephone encounter Dante Waite MD Work Phone: OB/Gynecology Comment on above: [employer] form ([place]) Procedures Date Procedure Procedure Detail Performing Clinician Start: 11-24-2024 Urnls dip stick/tabl et rgnt non-auto w/o micrscp Dante Waite MD Work Phone: Start: 11-12-2024 Urnls dip stick/tabl et rgnt non-auto w/o micrscp Dante Waite MD Work Phone: Start: 11-10-2024 Urnls dip stick/tabl et rgnt non-auto w/o micrscp Dante Waite MD Work Phone: Start: 10-27-2024 Urnls dip stick/tabl et rgnt non-auto w/o micrscp Dante Waite MD Work Phone: Start: 09-27-2024 Urnls dip stick/tabl et rgnt auto w/o microscopy Tara Parks APRN.CNM Work Phone: Start: 06-02-2024 Us preg uterus after 1st trimest 04/14 gestation Dante Waite MD Work Phone: Start: 05-04-2024 Antibody screen KATHY VYAS Comment on above: Order Comment: Speci men Type: BLOOD SPECIMEN Ordering Facility: [facility] Address: [address] [place] [address] Performed By: #### T SPN #### [facility] CLIA [id number] [facility] DESK [id number] [place] [address] [place] Start: 05-04-2024 Us preg uterus after 1st trimest 04/14 gestation Mai Blanton BEAD WIRE INSULATOR.CRATE BUILDER Work Phone: Start: 04-19-2024 Us uterus limited 1/> fetuses Mai Blanton BEAD WIRE INSULATOR.CRATE BUILDER Work Phone: Start: 04-19-2024 Adult depression screening assessment Dante Waite MD Work Phone: Start: 09-16-2022 Plain chest X-ray Start: 09-16-2022 Radiologic exam ches t [address] MD Work Phone: Start: 01-01-2022 URINE OB DIP B/O Jose L Waite MD Work Phone: Start: 12-25-2021 URINE OB DIP B/O Kasey Yang MD Work Phone: Start: 12-13-2021 URINE OB DIP B/O Jose L Waite MD Work Phone: Start: 12-04-2021 URINE OB DIP B/O Jose L Waite MD Work Phone: Start: 12-04-2021 Us preg uterus after 1st trimest 04/14 gestation Dante Waite MD Work Phone: Start: 11-20-2021 URINE OB DIP B/O Jose L Waite MD Work Phone: Start: 11-07-2021 URINE OB DIP B/O Jose L Waite MD Work Phone: Start: 10-09-2021 URINE OB DIP B/O Jose L Waite MD Work Phone: Start: 09-11-2021 URINE OB DIP B/O Jose L Waite MD Work Phone: Start: 08-13-2021 URINE OB DIP B/O Jose L Waite MD Work Phone: Start: 08-13-2021 Us preg uterus after 1st trimest 04/14 gestation Dante Waite MD Work Phone: Start: 07-20-2021 URINE OB DIP B/O Jose L Waite MD Work Phone: Viral antigen assay Plan of Treatment Date Care Activity Detail Author Start: 09-15-2034 Urine microalbumin profile DTaP,Tdap,Td Vaccine (4 - Td or Tdap) [facility] Start: 12-05-2031 Urine microalbumin profile [facility] Start: 11-14-2029 Urine microalbumin profile DTAP,TDAP,TD (2 - Td or Tdap) [facility] Start: 05-29-2026 HPV TESTING HPV TESTING [facility] Start: 05-29-2026 PAP TESTING PAP TESTING [facility] Start: 05-29-2026 Screening for malign ant neoplasm of cervix [facility] Start: 04-19-2025 Anxiety Screening Anxiety Screening [facility] Start: 04-19-2025 Depression Screening Depression Scre ening [facility] Start: 12-20-2024 End: 12-20-2024 Patient encounter procedure 12/20/2024 10:50 AM EDT Office Visit OB/Gynecology [address] [place] [address] Dante Waite MD [address] [place] [id number] POST OP 6 week OB/Gynecology Comment on above: POST OP 6 week Start: 12-13-2024 Influenza vaccination [facility] Start: 12-08-2024 End: 12-08-2024 Patient encounter procedure 12/08/2024 10:20 AM EDT Office Visit OB/Gynecology [address] [place] [address] Dante Waite MD [address] [place] [address] 1 week incision check OB/Gynecology Comment on above: 1 week incision chec k Start: 11-24-2024 End: 11-24-2024 Patient encounter procedure OB/Gynecology Comment on above: OB OB - Pre Op C/S 11/30 @ [facility] Start: 11-17-2024 End: 11-17-2024 Patient encounter procedure OB/Gynecology Comment on above: OB OB- Start: 11-15-2024 Nonstress test [facility] Start: 11-15-2024 Catheterization of vein [facility] Start: 11-15-2024 [facility] Start: 11-15-2024 End: 11-15-2024 Patient encounter procedure 11/15/2024 10:20 AM EDT Routine Office Visit OB/Gynecology [address] [place] [address] Dante Waite MD [address] [place] [address] OB/ Ok per RR she will be back form suegery OB/Gynecology Comment on above: OB/ Ok per RR she wi ll be back form suegery Start: 11-15-2024 Patient discharge [facility] Start: 11-12-2024 End: 11-12-2024 Patient encounter procedure 11/12/2024 10:30 AM EDT Routine Office Visit OB/Gynecology [address] [address] Dante Waite MD [address] [place] [id number] OB - check presentation to see if she is still breech OB/Gynecology Comment on above: OB - check presentat ion to see if she is still breech Start: 11-10-2024 End: 11-10-2024 Patient encounter procedure 11/10/2024 10:40 AM EDT Routine Office Visit OB/Gynecology [address] [place] [address] Dante Waite MD [address] [place], [place] [id number] OB OB/Gynecology Comment on above: OB Start: 10-27-2024 End: 10-27-2024 Patient encounter procedure 10/27/2024 8:30 AM EDT Routine Office Visit OB/Gynecology [address] [place] [address] Dante Waite MD [address] [place], [place] [id number] OB OB/Gynecology Comment on above: OB Start: 10-13-2024 End: 01-12-2025 CBC panel - Blood by Automated count COMPLETE BLOOD COUNT Lab Routine Supervision of high risk in third trimester (HCC) Hx of preeclampsia, prior , currently (HCC) Anemia during in third trimester (HCC) 32 weeks gestation of (HCC) Expected: 10/13/2024, Expires: 01/12/2025 [facility] Work Phone: Comment on above: Expected: 10/13/2024 , Expires: 01/12/2025 Start: 10-13-2024 End: 10-13-2024 Patient encounter procedure 10/13/2024 1:40 PM EDT Office Visit OB/Gynecology [address] [place], [place] [id number] Dante Waite MD [address] [place], [place] [id number] Annual OB/Gynecology Comment on above: Annual Start: 10-13-2024 End: 10-13-2024 Patient encounter procedure 10/13/2024 8:30 AM EDT Routine Office Visit OB/Gynecology [address] [place] [address] Dante Waite MD [address] [place] [address] OB OB/Gynecology Comment on above: OB Start: 09-15-2024 End: 09-15-2024 ambulatory 09/15/2024 9:15 AM EDT Results Only [place] Ricardo [facility] Laboratory [address] [place] [address] Let[place] Robersonwn [facility] Laboratory Start: 09-15-2024 End: 09-15-2024 Patient encounter procedure 09/15/2024 8:30 AM EDT Routine Office Visit OB/Gynecology [address] [place] [address] Dante Waite MD [address] [place] [address] OB OB/Gynecology Comment on above: OB Start: 08-18-2024 End: 11-17-2024 ANEMIA REFLEX PANEL ANEMIA REFLEX PANEL Lab Routine 24 weeks gestation of ([facility]) Screening for diabetes mellitus Expected: 08/18/2024, Expires: 11/17/2024 [facility] Comment on above: Expected: 08/18/2024 , Expires: 11/17/2024 Start: 08-18-2024 End: 08-18-2025 GESTATIONAL GLUCOSE SCREEN, 1-HOUR, 50 GRAM, NON-FASTING GESTATIONAL GLUCOSE SCREEN, 1-HOUR, 50 GRAM, NON-FASTING Lab Routine 24 weeks gestation of (HCC) Screening for diabetes mellitus Expected: 08/18/2024, Expires: 08/18/2025 [facility] Work Phone: Comment on above: Expected: 08/18/2024 , Expires: 08/18/2025 Start: 08-18-2024 End: 08-18-2025 SYPHILIS TREPONEMAL W/REFLEX SYPHILIS TREPONEMAL W/REFLEX Lab Routine 24 weeks gestation of (HCC) Screening for diabetes mellitus Expected: 08/18/2024, Expires: 08/18/2025 [facility] Comment on above: Expected: 08/18/2024 , Expires: 08/18/2025 Start: 08-18-2024 End: 08-18-2024 Patient encounter procedure 08/18/2024 8:30 AM EDT Routine Office Visit OB/Gynecology [address] [place] [address] Dante Waite MD [address] [place] [address] OB OB/Gynecology Comment on above: OB Start: 07-21-2024 End: 07-21-2024 Patient encounter procedure 07/21/2024 3:40 PM EDT Routine Office Visit OB/Gynecology [address] [place] [address] Dante Waite MD [address] [place] [address] Anatomy/OB OB/Gynecology Comment on above: Anatomy/OB Start: 07-21-2024 End: 07-21-2024 Patient encounter procedure 07/21/2024 2:30 PM EDT Routine Office Visit Maternal Medicine [address] [place] [address] Anatomy [facility]aternal [facility] Comment on above: Anatomy Start: 06-23-2024 End: 06-23-2024 Patient encounter procedure Maternal Medicine Comment on above: Early Anatomy Early Anatomy/OB Start: 06-02-2024 End: 06-02-2024 Patient encounter procedure 06/02/2024 3:10 PM EST Routine Office Visit OB/Gynecology [address] [place] [address] Dante Waite MD [address] [place] [address] OB Routine OB/Gynecology Comment on above: OB Routine Start: 06-02-2024 End: 06-02-2024 Patient encounter procedure 06/02/2024 10:30 AM EST Routine Office Visit Maternal Medicine [address] [place] [address] Early Anatomy [facility]aternal [facility] Comment on above: Early Anatomy Start: 05-29-2024 PAP TESTING PAP TESTING [facility] Start: 05-18-2024 End: 05-18-2024 Patient encounter procedure 05/18/2024 10:20 AM EST Routine Office Visit OB/Gynecology [address] [place] [address] Dante Waite MD [address] [place] [address] NEW OB VISIT, LMP 02/28/24, [place] DELIVERY OB/Gynecology Comment on above: NEW OB VISIT, LMP , [place] DELIVERY Start: 05-18-2024 End: 05-18-2024 Patient encounter procedure 05/18/2024 8:30 AM EST Routine Office Visit OB/Gynecology [address] [place] [address] Dante Waite MD [address] [place] [address] OB OB/Gynecology Comment on above: OB Start: 05-17-2024 End: 05-17-2024 Patient encounter procedure 05/17/2024 10:10 AM EST Routine Office Visit OB/Gynecology [address] [place] [address] Mare Winters MD [address] [place] [address] NEW OB VISIT, LMP 02/28/24, [place] DELIVERY OB/Gynecology Comment on above: NEW OB VISIT, LMP , [place] DELIVERY Start: 05-04-2024 End: 08-03-2024 Chromosome 21 trisomy [Presence] in Blood or Tissue by Cytogenetics [id number] PLUS Lab Routine Encounter for supervision of normal in multigravida Hx of preeclampsia, prior , currently 9 weeks gestation of Expected: 05/04/2024, Expires: 08/03/2024 [facility] Comment on above: Expected: 05/04/2024 , Expires: 08/03/2024 Start: 05-04-2024 End: 05-04-2025 OBSTETRIC ULTRASOUND WHI OBSTETRIC ULTRASOUND WHI Anc Imaging Routine Encounter for supervision of normal in multigravida Hx of preeclampsia, prior , currently 9 weeks gestation of Expected: 05/04/2024, Expires: 05/04/2025 [facility] Comment on above: Expected: 05/04/2024 , Expires: 05/04/2025 Start: 05-04-2024 End: 05-04-2024 Patient encounter procedure Maternal Medicine Comment on above: Dating Dating /OB Start: 04-19-2024 End: 07-19-2024 ANEMIA REFLEX PANEL ANEMIA REFLEX PANEL Lab Routine with uncertain dates, antepartum Encounter for supervision of normal in multigravida Expected: 04/19/2024, Expires: 07/19/2024 [facility] Work Phone: Comment on above: Expected: 04/19/2024 , Expires: 07/19/2024 Start: 04-19-2024 End: 07-19-2024 Hemoglobin A1c in Blood HEMOGLOBIN A1C Lab Routine with uncertain dates, antepartum Encounter for supervision of normal in multigravida Expected: 04/19/2024, Expires: 07/19/2024 [facility] Comment on above: Expected: 04/19/2024 , Expires: 07/19/2024 Start: 04-19-2024 End: 07-19-2024 Hepatitis B virus surface Ag [Presence] in Serum HEPATITIS B SURFACE ANTIGEN Lab Routine with uncertain dates, antepartum Encounter for supervision of normal in multigravida Expected: 04/19/2024, Expires: 07/19/2024 [facility] Comment on above: Expected: 04/19/2024 , Expires: 07/19/2024 Start: 04-19-2024 End: 07-19-2024 Hepatitis C virus Ab [Presence] in Serum HEPATITIS C ANTIBODY IA WITH CONFIRMATION Lab Routine with uncertain dates, antepartum Encounter for supervision of normal in multigravida Expected: 04/19/2024, Expires: 07/19/2024 [facility] Comment on above: Expected: 04/19/2024 , Expires: 07/19/2024 Start: 04-19-2024 End: 07-19-2024 HIV 1+2 Ab [Presence] in Serum or Plasma by Immunoassay HIV 1/2 COMBO WITH REFLEX TO DIFFERENTIATION Lab Routine with uncertain dates, antepartum Encounter for supervision of normal in multigravida Expected: 04/19/2024, Expires: 07/19/2024 [facility] Comment on above: Expected: 04/19/2024 , Expires: 07/19/2024 Start: 04-19-2024 End: 04-19-2025 OBSTETRIC ULTRASOUND WHI OBSTETRIC ULTRASOUND WHI Anc Imaging Routine 7 weeks gestation of Expected: 04/19/2024, Expires: 04/19/2025 [facility] Comment on above: Expected: 04/19/2024 , Expires: 04/19/2025 Start: 04-19-2024 End: 07-19-2024 RUBELLA IGG ANTIBODY RUBELLA IGG ANTIBODY Lab Routine with uncertain dates, antepartum Encounter for supervision of normal in multigravida Expected: 04/19/2024, Expires: 07/19/2024 [facility] Comment on above: Expected: 04/19/2024 , Expires: 07/19/2024 Start: 04-19-2024 End: 07-19-2024 SYPHILIS TREPONEMAL W/REFLEX SYPHILIS TREPONEMAL W/REFLEX Lab Routine with uncertain dates, antepartum Encounter for supervision of normal in multigravida Expected: 04/19/2024, Expires: 07/19/2024 [facility] Comment on above: Expected: 04/19/2024 , Expires: 07/19/2024 Start: 04-19-2024 End: 07-19-2024 TYPE + SCREEN TYPE + SCREEN Blood Bank Routine with uncertain dates, antepartum Encounter for supervision of normal in multigravida Expected: 04/19/2024, Expires: 07/19/2024 [facility] Comment on above: Expected: 04/19/2024 , Expires: 07/19/2024 Start: 04-19-2024 End: 04-19-2024 Patient encounter procedure 04/19/2024 8:15 AM EST Initial Office Visit OB/Gynecology [address] [place] [address] Mai Blanton APRN.CRATE BUILDER [address] [place] [address] NEW OB VISIT, LMP 02/28/24, [place] DELIVERY OB/Gynecology Comment on above: NEW OB VISIT, LMP , [place] DEL[place] Start: 12-14-2023 Covid-19 Vaccine ( season) Covid-19 Vaccine () [facility] Start: 12-14-2023 Covid-19 Vaccine () Covid-19 Vaccine () [facility] Start: 12-14-2023 Influenza vaccination [facility] Start: 11-25-2023 End: 11-25-2023 Patient encounter procedure 11/25/2023 8:40 AM EDT Office Visit OB/Gynecology [address] [place] [address] Dante Waite MD [address] [place] [address] annual OB/Gynecology Comment on above: annual Start: 04-14-2023 Behavioral Health Screening Behavioral Health Screening [facility] Start: 04-14-2023 Depression Assessment Depression Ass essment [facility] Start: 03-10-2023 End: 06-09-2023 Bacteria identified in Urine by Culture [facility] Work Phone: Comment on above: Expected: 03/10/2023 , Expires: 06/09/2023 Start: 12-13-2022 Covid-19 Vaccine ( season) Covid-19 Vaccine () [facility] Start: 12-13-2022 Influenza vaccination Influenza Vacc ine (#1) [facility] Start: 04-14-2022 DEPRESSION ASSESSMENT DEPRESSION ASS ESSMENT [facility] Start: 01-05-2022 Patient discharge [facility] Work Phone: Start: 01-04-2022 Following clinical pathway protocol [facility] Work Phone: Start: 01-04-2022 Administration of medication [facility] Work Phone: Start: 01-04-2022 Application of ice collar, cap or bag [facility] Work Phone: Start: 01-04-2022 Catheterization of vein [facility] Work Phone: Start: 01-04-2022 Introduction of urin ruth catheter [facility] Work Phone: Start: 01-04-2022 Measuring intake and output [facility] Work Phone: Start: 01-04-2022 Notification of physician [facility] Work Phone: Start: 01-04-2022 Procedure discontinued [facility] Work Phone: Start: 01-04-2022 Provision of activit y privileges [facility] Work Phone: Start: 01-04-2022 Vital signs measurements [facility] Work Phone: Start: 01-04-2022 [facility] Work Phone: Start: 01-04-2022 Admission procedure [facility] Work Phone: Start: 01-03-2022 COVID-19 VACCINE (4 - Booster for Moderna series) COVID-19 VACCINE (4 - Booster for Moderna series) [facility] Start: 12-13-2021 Influenza vaccination C [facility] Start: 12-06-2021 Nonstress test [facility] Work Phone: Start: 12-06-2021 Obstetric monitoring [facility] Work Phone: Start: 12-06-2021 Vital signs measurements [facility] Work Phone: Start: 12-06-2021 [facility] Work Phone: Start: 10-09-2021 End: 12-09-2021 GEST GLUC RAYMOND, 3-HR, 100 GM, FASTING GEST GLUC RAYMOND, 3-HR, 100 GM, FASTING Lab Routine Abnormal glucose in , antepartum Expected: 10/09/2021, Expires: 12/09/2021 [facility] Work Phone: Comment on above: Expected: 10/09/2021 , Expires: 12/09/2021 Start: 09-11-2021 End: 11-11-2021 CBC W Auto Differential panel - Blood CBC + DIFF Lab Routine 22 weeks gestation of History of delivery, currently Encounter for supervision of other normal in second trimester Expected: 09/11/2021, Expires: 11/11/2021 [facility] Work Phone: Comment on above: Expected: 09/11/2021 , Expires: 11/11/2021 Start: 09-11-2021 End: 11-11-2021 GEST GLUC SCREEN, 1-HR, 50 GM, NON-FASTING GEST GLUC SCREEN, 1-HR, 50 GM, NON-FASTING Lab Routine 22 weeks gestation of History of delivery, currently Encounter for supervision of other normal in second trimester Expected: 09/11/2021, Expires: 11/11/2021 [facility] Work Phone: Comment on above: Expected: 09/11/2021 , Expires: 11/11/2021 Start: 09-11-2021 End: 11-11-2021 SYPHILIS TOTAL W/REFLEX SYPHILIS TOTAL W/REFLEX Lab Routine 22 weeks gestation of History of delivery, currently Encounter for supervision of other normal in second trimester Expected: 09/11/2021, Expires: 11/11/2021 [facility] Work Phone: Comment on above: Expected: 09/11/2021 , Expires: 11/11/2021 Start: 07-24-2021 COVID-19 VACCINE (3 - Booster for Moderna series) COVID-19 VACCINE (3 - Booster for Moderna series) [facility] Start: 04-14-2021 DEPRESSION ASSESSMENT DEPRESSION ASS ESSMENT [facility] Start: 2019 HPV Vaccine (1 - 3-d ose SCDM series) HPV Vaccine (1 - 3-dose SCDM series) [facility] Start: 2011 Hepatitis B Vaccine (1 of 3 - 19+ 3-dose series) Hepatitis B Vaccine (1 of 3 - 19+ 3-dose series) [facility] Start: 2010 Anxiety Screening Anxiety Screening [facility] Start: 2010 Depression Screening Depression Scre ening [facility] Start: 2004 Adult depression screening assessment DEPRESSION SCREENING [facility] Start: 1992 HEPATITIS B (1 of 3 - 3-dose series) HEPATITIS B (1 of 3 - 3-dose series) [facility] Start: 1992 Hepatitis B Vaccine (1 of 3 - 3-dose series) Hepatitis B Vaccine (1 of 3 - 3-dose series) [facility] Bacteria identified in Urine by Culture URINE CULTURE Microbiology Routine with uncertain dates, antepartum Encounter for supervision of normal in multigravida 04/19/2024 9:05 AM EST [facility] Bacteria identified in Urine by Culture BACTERIAL CULTURE, URINE Microbiology Routine Supervision of high risk in third trimester (HCC) 30 weeks gestation of (HCC) Urinary frequency 09/27/2024 9:26 AM EDT [facility] Work Phone: Chlamydia trachomatis+Neisseria gonorrhoeae DNA [Presence] in Unspecified specimen by LUPIS with probe detection GONORRHEA/CHLAMYDIA NAAT Lab Routine with uncertain dates, antepartum Encounter for supervision of normal in multigravida 04/19/2024 9:05 AM EST [facility] Microscopic observat ion [Identifier] in Vaginal fluid by Gram stain BACT/JONI VAG GRAM STAIN Microbiology Routine Vaginal discharge Vaginal odor 03/05/2022 11:52 AM EST [facility] Work Phone: OBSTETRIC ULTRASOUND WHI OBSTETR IC ULTRASOUND WHI Anc Imaging Routine Diet controlled gestational diabetes mellitus (GDM) in third trimester 32 weeks gestation of Supervision of other high risk pregnancies, third trimester Ordered: 11/20/2021 [facility] Work Phone: Comment on above: Ordered: 11/20/2021 End: 05-04-2025 OBSTETRIC ULTRASOUND WHI OBSTETRIC ULTRASOUND WHI Anc Imaging Routine Encounter for supervision of normal in multigravida Hx of preeclampsia, prior , currently 9 weeks gestation of 1 Occurrences starting 05/04/2024 until 05/04/2025 [facility] Work Phone: Comment on above: 1 Occurrences starti ng 05/04/2024 until 05/04/2025 Patient Education [facility] Work Phone: Patient referral [facility] Work Phone: ROUTINE, GR OUP B STREP PCR ROUTINE, GROUP B STREP PCR Microbiology Routine 35 weeks gestation of Diet controlled gestational diabetes mellitus (GDM) in third trimester 12/13/2021 12:07 PM EDT [facility] Work Phone: ROUTINE, GR OUP B STREPTOCOCCUS BY PCR ROUTINE, GROUP B STREPTOCOCCUS BY PCR Microbiology Routine Supervision of high risk in third trimester (HCC) Hx of preeclampsia, prior , currently (HCC) 36 weeks gestation of ([facility]) 11/10/2024 11:19 AM EDT [facility] Work Phone: URINE OB DIP B/O URINE OB DIP B/ O Lab Routine 36 weeks gestation of Diet controlled gestational diabetes mellitus (GDM) in third trimester Supervision of other high risk pregnancies, first trimester Ordered: 12/19/2021 [facility] Work Phone: Comment on above: Ordered: 12/19/2021 URINE OB DIP B/O URINE OB DIP B/ O Lab Routine 37 weeks gestation of (HCC) Supervision of high risk in third trimester ([facility]) Ordered: 11/15/2024 [facility] Work Phone: Comment on above: Ordered: 11/15/2024 [facility] Immunizations Immunization Date Immunization Notes Care Provider Aleksandar rodriguez 09-15-2024 tetanus toxoid, redu easton diphtheria toxoid, and acellular pertussis vaccine, adsorbed Dante Waite MD Work Phone: [facility] 01-05-2022 influenza, injectabl e, quadrivalent, preservative free Dr. Kathy Vyas MD Work Phone: [facility] 01-05-2022 influenza, seasonal, injectable [facility] 01-05-2022 influenza virus vaccine, unspecified formulation Dante Waite MD Work Phone: [facility] 12-04-2021 tetanus toxoid, redu easton diphtheria toxoid, and acellular pertussis vaccine, adsorbed Manjula Diaz MD Work Phone: [facility] 01-13-2020 influenza virus vaccine, unspecified formulation Dante Waite MD Work Phone: [facility] Work Phone: 01-12-2020 influenza, injectabl e, quadrivalent, preservative free Dr. Kathy Vyas MD Work Phone: [facility] 01-12-2020 influenza, seasonal, injectable [facility] 01-12-2020 influenza, seasonal, injectable, preservative free Dante Waite MD Work Phone: [facility] Work Phone: 11-15-2019 tetanus toxoid, redu easton diphtheria toxoid, and acellular pertussis vaccine, adsorbed Dante Waite MD Work Phone: [facility] Payers Date Payer Category Payer Self-pay [id number] [id number] 2022 [facility] [id number] 2022 Unknown MARLENA TRIVEDI PPO [id number] 2022-Present [phone] [address] [place] [address] PPO [id number] 2022 Unknown [id number] 2020 Private Health Insurance [employer] OAP [id number] 2020-Present [phone] [address] [place] [address] Open Access [id number] 2020 Private Health Insurance [employer] O[employer] [id number] 2020-Present [phone] [address] [place] [address] Open Access [id number] Private Health Insurance [id number] Unknown [id number] Unknown [id number] Social History Date Type Detail Facility Start: 04-19-2011 End: 01-17-2022 Tobacco smoking status NHIS Never smoked tobacco [facility] Work Phone: Start: 04-19-2011 End: 01-17-2022 Tobacco use and exposure Smokeless tobacco non-user [facility] Work Phone: Start: 06-26-2021 End: 09-27-2024 Alcohol intake Current non-drinker of alcohol (finding) [facility] Start: 07-06-2019 History SDOH Financial 5 [facility] Start: 07-06-2019 History SDOH Food Worry 1 [facility] Start: 07-06-2019 History SDOH Transport Med 2 [facility] Start: 07-05-2019 Education 17 [facility] Start: 04-20-2021 [facility] Start: 1990 Sex Assigned At Not on file C [facility] Start: 06-16-2021 End: 01-17-2022 Exposure to SARS-CoV-2 (event) Not sure [facility] Start: 01-10-2020 End: 09-16-2022 Tobacco smoking status NHIS Unknown if ever smoked [facility] Start: 1990 Sex Assigned At Female W [facility] Start: 09-16-2022 End: 10-10-2023 History of Social function [facility] Start: 09-16-2022 End: 10-10-2023 Tobacco use panel [facility] Start: 03-15-2012 How hard is it for you to pay for the very basics like food, housing, medical care, and heating Not hard at all [facility] (I/We) worried whether (my/our) food would run out before (I/we) got money to buy more. Never true [facility] NEGATED: Highlighted row [facility] Medical Equipment Procedure Code Equipment Code Equipment Original Text Equipment Identifier Dates Start: 10-17-2021 End: 01-17-2022 Comment on above: 1 Strip four times d aily. Use as instructed. Compatible with One Touch Ultra 2 glucometer please. 1 Each four times da donna. Use as instructed. Goals Date Patient Goal Desired Activity /State Personal health goal Mental Status Date Assessment Result Facility 09-16-2022 Cognitive function Voice/Name [facility] Work Phone: Clinical Notes 11-22-2019 to 11-24-2024 Quick Notes - Kasey Martines MD - 11/24/2024 10:06 AM EDTPrenatal Quick Notes - Kasey Martines MD - 11/24/2024 10:06 AM EDTPatient Instructions Note Date & Type Note Facility 11-24-2024 Progress note Formatting of t his note might be different from the original. DM-Pt doing well. Denies vaginal Bleeding, Leaking fluid, or regular Contractions. Pt reports good movement Physical Exam: Gen: female in no apparent distress Abd: soft, Gravid. Non tender to palpation. See flow sheet @ 38.4 weeks Assessment & Plan Supervision of high risk in third trimester ([facility]) Orders: URINE OB DIP B/O Hx of preeclampsia, prior , currently ([facility]) Orders: URINE OB DIP B/O Breech presentation with problem, single or unspecified fetus ([facility]) Planned cs Orders: URINE OB DIP B/O Anemia during in third trimester ([facility]) Continue PO iron Orders: URINE OB DIP B/O 38 weeks gestation of ([facility]) Kick counts and labor reviewed Orders: URINE OB DIP B/O Kasey Perez MD [facility] 11-24-2024 Miscellaneous Notes DM-Pt doing well. Denies vaginal Bleeding, Leaking fluid, or regular Contractions. Pt reports good movement Physical Exam: Gen: female in no apparent distress Abd: soft, Gravid. Non tender to palpation. See flow sheet @ 38.4 weeks Assessment & Plan Supervision of high risk in third trimester ([facility]) Orders: URINE OB DIP B/O Hx of preeclampsia, prior , currently ([facility]) Orders: URINE OB DIP B/O Breech presentation with problem, single or unspecified fetus ([facility]) Planned cs Orders: URINE OB DIP B/O Anemia during in third trimester ([facility]) Continue PO iron Orders: URINE OB DIP B/O 38 weeks gestation of ([facility]) Kick counts and labor reviewed Orders: URINE OB DIP B/O Kasey Perez MD documented in this encounter [facility] 11-24-2024 Instructions Milana Quintana MA - 11/24/2024 8:58 AM EDT SEQUENTIAL SCREENINGS The [facility] offers sequential screenings for women who are interested in screenings for chromosomal abnormalities and certain defects during a . The sequential screen combines ultrasound and blood tests to determine the risk of chromosomal abnormalities, including Down's Syndrome (Trisomy 21) and Trisomy 18, as well as open neural tube defects including spina bifida. Ultrasound examination is performed between 11 weeks and 13 weeks gestational age. Blood tests are drawn after the ultrasound and again later in the between 15 and 21 weeks gestational age. Please let your physician know if you are interested in this testing. It will require an appointment with our interactive video technician. This is not an ultrasound performed by a physician in our office during a routine visit. SIGNS AND SYMPTOMS OF LABOR 1. Contractions every 10 minutes or more often 2. Clear, pink, or brownish fluid (water) leaking from vagina 3. Feeling that baby is pushing down, pressure 4. Low, dull backache 5. Cramps that feel like a period 6. Cramps with or without diarrhea If you notice any of the above symptoms, contact our office at [phone] and ask to speak with a nurse. After hours, you can call doctors registry at [phone] OR call [facility] at [phone] and ask to have the doctor correctional supply supervisor paged. If you consider this an emergency, dial 9-1-1 or go to your nearest emergency department. NEED HELP? Are you dealing with a violent or abusive relationship? Are you a victim of rape or sexual assult? Call [facility] ([place]) 24 hour Crisis Hotline: 125.819.6280 or 283-941-5847. MANUAL Your Guide to a Healthy manual is now on-line. Visit [email or web address] ncyGuide to download your free copy documented in this encounter [facility] 11-23-2024 Note HNO ID: [id number] Author: MARIO ALBERTO TOMLISNON, ? Service: ? Author Type: Patient Disease Education Specialist Type: Progress Notes Filed: 11/23/2024 07:33 Note Text: POPULATION HEALTH NAVIGATION OUTREACH Action/I No outreach done added technical support professional via note Reason for Outreach Medicaid OB/Peds Care Gaps due: N/A Patient Contacted: Unable or unnecessary to reach patient: Aguirre technical support professional added Navigation Signature: Mario Alberto Tomlinson Population Health Navigator November 23, 2024 7:32 AM [facility] 11-23-2024 History of Present illness Narrative POPULATION HEALTH NAVIGATION OUTREACH Action/I No outreach done added technical support professional via note Reason for Outreach Medicaid OB/Peds Care Gaps due: N/A Patient Contacted: Unable or unnecessary to reach patient: Aguirre technical support professional added Navigation Signature: Mario Alberto Tomlinson Population Health Navigator November 23, 2024 7:32 AM documented in this encounter [facility] 11-23-2024 Note Patient Outreach (NE TNAV) HERB MORAN ([id number]) 1990 F Date Time Provider Department 11/23/24 MARIO ALBERTO TOMLINSON NETTADV During your visit today, we recorded the following information about you: Mario Alberto Tomlinson 11/23/2024 7:33 AM Signed POPULATION HEALTH NAVIGATION OUTREACH Action/I No outreach done added technical support professional via note Reason for Outreach Medicaid OB/Peds Care Gaps due: N/A Patient Contacted: Unable or unnecessary to reach patient: Aguirre technical support professional added Navigation Signature: Mario Alberto Tomlinson Population Health Navigator November 23, 2024 7:32 AM Allergies As of Date: 11/23/2024 Noted Allergy Reaction SULFA (SULFONAMIDE ANTIBIOTICS) 04/19/2011 4 - Hives Date Reviewed: 11/17/2024 Reviewed by: Milana Quintana MA - Fully Assessed Reason for Visit: Population Health Navigation Outreach [3910] Cmt: to PCP/OB Prescriptions as of 11/23/2024 - ferrous sulfate EC 324 mg (65 mg iron) TbEC Take 324 mg by mouth. - aspirin, enteric coated (ECOTRIN LOW STRENGTH) 81 mg EC tablet Take 1 tablet by mouth once daily. - vitamins no.2 ( VITAMIN NO.2 ORAL) Take by mouth once daily. - clindamycin-benzoyl peroxide 1.2 %(1 % base) -3.75 % gel Apply to affected area as needed. Problem List As Of Date 11/23/2024 Noted Resolved Acne [L70.9] 04/19/2011 01/17/2022 Abnormal glucose in , antepartum [O99.*11/16/2019 05/29/2021 Gestational diabetes mellitus, class A1 [O24.41*11/22/2019 01/17/2022 History of gestational diabetes in prior pregna*05/24/2021 10/17/2021 Hx of gestational diabetes in prior , *05/24/2021 History of delivery, currently *05/24/2021 01/17/2022 Supervision of other high risk pregnancies, fir*05/29/2021 01/17/2022 Anemia during in third trimester ([facility]*10/09/2021 Supervision of high risk in second tr*04/19/2024 Hx of preeclampsia, prior , currently *04/19/2024 Breech presentation with problem ([facility]*11/10/2024 Encounter Status:Closed by MARIO ALBERTO TOMLINSON on 11/23/24 [facility] 11-18-2024 Note [facility] Medical Records Department [address] [place] [id number] History Physical Exam 11/18/24 0912 MR#: [id number] Acct: [id number] Name: DEANHERB DOREEN Rep #: [id number] : 1990 34 From: Dante Waite MD PCP: Dr. Kathy Vyas MD Status:PRE IN Location: [facility] History and Physical Date of Admission: 11/30/24 HPI: The patient is a 34 year old female presenting for pre-operative visit. She is scheduled for , for breech on 11/30/24. Procedure discussed along with risks, benefits and complications. Other alternatives discussed for management. Consent form signed? Yes. ? PAST MEDICAL HISTORY PAST MEDICAL HISTORYDiagnosisDate???Acne? Anemia?Gestational diabetes mellitus, class A1 ([facility])11/22/2019???Hx of preeclampsia, prior , currently ([facility])04/19/2024???Preeclampsia (HCC)? PAST SURGICAL HISTORY PAST SURGICAL HISTORYProcedureLateralityDate??? EXTRACTION ERUPTED TOOTH/EXR???08/2022???NONE? CURRENT MEDICATIONS Current Outpatient MedicationsMedicationSigDispenseR efill???ferrous sulfate EC 324 mg (65 mg iron) TbECTake 324 mg by mouth.?aspirin, enteric coated (ECOTRIN LOW STRENGTH) 81 mg EC tabletTake 1 tablet by mouth once daily.90 tablet3??? vitamins no.2 ( VITAMIN NO.2 ORAL)Take by mouth once daily.?clindamycin-benzoy l peroxide 1.2 %(1 % base) -3.75 % gelApply to affected area as needed.?No current facility-administered medications for this visit. ? ALLERGIES: Sulfa (Sulfonamide Antibiotics) ??? PERSONAL HISTORY: SOCIAL HISTORY Social History???Tobacco Use???Smoking status:Never???Smokeless tobacco:NeverVaping Use???Vaping status:Never UsedSubstance Use Topics???Alcohol use:No???Drug use:No ??? FAMILY HISTORY: FAMILY HISTORY FAMILY HISTORY ProblemRelationAge of Onset???No Known ProblemsMother?HypertensionF ather?No Known ProblemsSister?No Known ProblemsSister?DiabetesMater nal Grandmother?Alzheimer's DiseaseMaternal Grandmother?HypertensionMate rnal Grandfather?LeukemiaMaternal Grandfather?HeartPaternal Grandmother? [place]???StrokePaternal Grandmother?HeartPaternal [id number]???CancerPaternal Grandfather? Skin???other (Brain Tumor (Cancer))Other? Maternal Great Aunt???No Known ProblemsSon? REVIEW OF SYMPTOMS: GENERAL: denies fevers or chills ENDOCRINOLOGY: has not been on steroids Cardiology : denies palpitations or chest pain Respiratory: denies SOB or cough Hematology: denies history of prolonged bleeding or easy bruising or VTE Allergy: Denies history of personal or family history of allergy to anesthesia ??? PHYSICAL EXAMINATION: ??? VITALS: Blood pressure 122/76, pulse 94, height 165.1 cm (5' 5), weight 88.9 kg (196 lb), last menstrual period 02/28/2024, SpO2 98%. ??? GENERAL: The patient is well nourished, well hydrated in no acute distress. , The patient is oriented to time, place, and person. NECK: Supple. No lynphadenopathy, normal thyroid, no thyromegaly. LUNGS: Clear to auscultation bilaterally. no wheezes, rhonchi or rales HEART: Regular rate and rhythm, Normal heart sounds, and No murmurs or gallops GENITALIA: Normal external genitalia, Urethral meatus normal, Bladder nontender, normal vagina and normal vaginal tone, normal cervix, normal uterus, size and consistency, normal adnexa without masses or tenderness, and perineum WNL ??? IMPRESSION: Estimated Date of Delivery: 12/04/24 Breech ??? PLAN: The risks/benefits/alternatives and personal involved for the planned were reviewed with the patient. Her questions were answered to her satisfaction and she desires to proceed. Consent was signed. I reviewed with her postop instructions and expectations. ??? I have reviewed and updated past medical and surgical history, medications and allergies 11/18/24911 Cosigner Signature (if applicable): CC: Dr. Kathy Vyas MD; Dr. Dante Waite MD Signed [facility] 11-17-2024 Note HNO ID: [id number] Author: DANTE WAITE MD Service: ? Author Type: Physician Type: Progress Notes Filed: 11/18/2024 09:11 Note Text: [facility] 11-15-2024 Progress note [facility] 11-15-2024 History and physical note Note Date/Time November 15, 2024 12:53pm [facility] Medical Records Department [address] [place] [address] OB Triage Physician Note 11/15/24 1249 MR#: [id number] Acct: [id number] Name: HERB MORAN Rep #:[id number] : 1990 34 From: Dante Waite MD PCP: Dr. Kathy Vyas MD Status:REG CLI Y Location: [address] HPI - General General Date of Admission: 11/15/24 Date of Service: 11/15/24 Chief Complaint: breech HPI Narrative HERB MORAN, is a 34 F who presents Maternal Data Information Final EDIL: 12/02/24 Gestational age: 37 4/7 [facility] Medical History (Updated 11/15/24 @ 12:[address] Dante Waite MD) (spontaneous vaginal delivery) History of premature rupture of membranes (PPROM) Pre-eclampsia Gestational diabetes Home Medications ?Medication ?Instructions ?Recorded ?Last Taken ?Type clindamycin 1.2 % (1 % 1 applic topical DAILY 09/16 Unknown History base)-benzoyl peroxide 5 % topical gel Held on 11/15/24. Instructions: Order Completed desogestrel-e.estradiol 0.15 1 tab PO DAILY 09/16/22 U nknown History mg-0.02 mg(21)/e.estrad 0.01 mg(5) tablet (Kariva (28)) Held on 11/15/24. Instructions: Order Completed naproxen 500 mg tablet (Naprosyn) 500 mg PO BID PRN pa in 5 days #10 09/16/22 Unknown Rx Held on 11/15/24. tabs Instructions: MD Ordered aspirin 81 mg tablet 81 mg PO DAILY 11/15/24/07/06 History ferrous sulfate 325 mg (65 mg 325 mg PO DAILY 11/15/24 Unknown History iron) tablet (Feosol) vit no.95-ferrous 1 tab PO DAILY 11/15/2407/06 History fumarate 28 mg-folic acid 800 mcg tablet () vitamin no.102-iron 90 cap PO 11/15/24 Unknow n History mg-folate 1 mg-dha 200 mg capsule Allergy/AdvReac Type Severity Reaction Status Date / Time Sulfa (Sulfonamide Allergy Hives Verified 11/15/24 11:06 Antibiotics) Social History Smoking Status: Never smoker History Elective abortions Hx Para 1 Spontaneous abortions Hx # Term Pregnancies Ectopic pregnancies Hx # Pregnancies Multiple births # of living children ROS ROS Narrative no vb/lof. Few irr eg ctxs NST FHR Rate Baby A Baseline: 150 Variability:: Moderate Accelerations:: 15 x 15 Decelerations:: None NST Reactive:: Yes Uterine Activity:: irreg ctxs q 4-7 min Assessment & Plan (1) Complete breech: PLAN: Response and alternatives to external cephalic version were discussed withpatient, her questions were answered to her satisfaction and consent was obtained. Procedure note: A timeout was performed. heart tones were category 1. Weattempted a forward roll x 2 without any significant movement.. The breech was easily elevated but we could not get any return of the skull. hearttones were dopplered in between and were normal. Patient was given some time torecover. A backwards roll was then attempted and again there is no significant movement of the breech or the head. Patient tolerated procedure well. Procedure performed by Dr. Santiago. No complications. NST and follow up in office as scheduled. Plan 39+ week c/s unless converts to vtx. Patient statesunderstanding and agreement w/ plan. (2) 37 weeks gestation of : 11/15/24 1253 <Electronically signed by Dante patel MD> Date _ Dante Waite MD Cosigner Signature (if applicable): Date CC: Dr. Kathy Vyas MD; Dr. Dante Waite MD ~ Signed [facility] Work Phone: 1(209) 183-457408-04-2025 History and physical note [facility] Medical Records Department [address] [place] [address] OB Triage Physician Note 11/15/24 1249 MR#: [id number] Acct: [id number] Name: HERB MORAN Rep #:[id number] : 1990 34 From: Dante Waite MD PCP: Dr. Kathy Vyas MD Status:REG CLI Y [facility] HPI - General General Date of Admission: 11/15/24 Date of Service: 11/15/24 Chief Complaint: breech HPI Narrative HERB MORAN, is a 34 F who presents Maternal Data Information Final EDIL: 12/02/24 Gestational age: 37 4/7 [facility] Medical History (Updated 11/15/24 @ 12:[address] Dante Waite MD) (spontaneous vaginal delivery) History of premature rupture of membranes (PPROM) Pre-eclampsia Gestational diabetes Home Medications ?Medication ?Instructions ?Recorded ?Last Taken ?Type clindamycin 1.2 % (1 % 1 applic topical DAILY 09/16 Unknown History base)-benzoyl peroxide 5 % topical gel Held on 11/15/24. Instructions: Order Completed desogestrel-e.estradiol 0.15 1 tab PO DAILY 09/16/22 U nknown History mg-0.02 mg(21)/e.estrad 0.01 mg(5) tablet (Kariva (28)) Held on 11/15/24. Instructions: Order Completed naproxen 500 mg tablet (Naprosyn) 500 mg PO BID PRN pa in 5 days #10 09/16/22 Unknown Rx Held on 11/15/24. tabs Instructions: Ordered aspirin 81 mg tablet 81 mg PO DAILY 11/15/24 08/0 07/06 History ferrous sulfate 325 mg (65 mg 325 mg PO DAILY 11/15/24 Unknown History iron) tablet (Feosol) vit no.95-ferrous 1 tab PO DAILY 11/15/2407/06 History fumarate 28 mg-folic acid 800 mcg tablet () vitamin no.102-iron 90 cap PO 11/15/24 Unknow n History mg-folate 1 mg-dha 200 mg capsule Allergy/AdvReac Type Severity Reaction Status Date / Time Sulfa (Sulfonamide Allergy Hives Verified 11/15/24 11:06 Antibiotics) Social History Smoking Status: Never smoker History Elective abortions Hx Para 1 Spontaneous abortions Hx # Term Pregnancies Ectopic pregnancies Hx # Pregnancies Multiple births # of living children ROS ROS Narrative no vb/lof. Few irr eg ctxs NST FHR Rate Baby A Baseline: 150 Variability:: Moderate Accelerations:: 15 x 15 Decelerations:: None NST Reactive:: Yes Uterine Activity:: irreg ctxs q 4-7 min Assessment & Plan (1) Complete breech: PLAN: Response and alternatives to external cephalic version were discussed withpatient, her questions were answered to her satisfaction and consent was obtained. Procedure note: A timeout was performed. heart tones were category 1. Weattempted a forward roll x 2 without any significant movement.. The breech was easily elevated but we could not get any return of the skull. hearttones were dopplered in between and were normal. Patient was given some time torecover. A backwards roll was then attempted and again there is no significant movement of the breech or the head. Patient tolerated procedure well. Procedure performed by Dr. Santiago. No complications. NST and follow up in office as scheduled. Plan 39+ week c/s unless convertsto vtx. Patient statesunderstanding and agreement w/ plan. (2) 37 weeks gestation of : 11/15/24 1253 ll > Date _ Dante Waite MD Cosigner Signature (if applicable): Date CC: Dr. Kathy Vyas MD; Dr. Dante Waite MD ~ Signed [facility]08-04-2025 Evaluation note* Diagnosis Onset Date Resolution Status Admit Date 37 weeks gestation of acut e November 15, 2024 10:35am Complete breech acute November 10:35am [facility] Work Phone: 1(380) 608-829308-04-2025 Progress note* Quick Notes - Dante Waite MD - 11/15/2024 10:34 AM EDT US confirms breech, back to maternal left. Desires attempted ECV. To [facility]. Dante Waite MD [facility]08-04-2025 Miscellaneous Notes* Quick Notes - Dante Waite MD - 11/15/2024 10:34 AM EDT US confirms breech, back to maternal left. Desires attempted ECV. To [facility]. Dante Waite MD [facility] Instructions* Patient Instructions* Sara Asencio MA - 11/15/2024 10:05 AM EDT SEQUENTIAL SCREENINGS The [facility] offers sequential screenings for women who are interested in screenings for chromosomal abnormalities and certain defects during a . The sequential screen combinesultrasound and blood tests to determine the risk of chromosomal abnormalities, including Down's Syndrome (Trisomy 21) and Trisomy 18, as well as open neural tube defects including spina bifida. Ultrasound examination is performed between 11 weeks and 13 weeks gestational age. Blood tests are drawn after the ultrasound and again later in the between 15 and 21 weeks gestational age. Please let your physician know if you are interested in this testing. It will require an appointment withour interactive video technician. This is not an ultrasound performed by a physician in our office during a routine visit. SIGNS AND SYMPTOMS OF LABOR 1. Contractions every 10 minutes or more often 2. Clear, pink, or brownish fluid (water) leaking from vagina 3. Feeling that baby is pushing down, pressure 4. Low, dull backache 5. Cramps that feel like a period 6. Cramps with or without diarrhea If you notice any of the above symptoms, contact our office at [phone] and ask to speak with anurse. After hours, you can call doctors registry at [phone] OR call [facility] at [phone] ask to have the doctor correctional supply supervisor paged. If you consider this an emergency, dial 9-1-6 or go to your nearest emergency department. NEED HELP? Are you dealing with a violent or abusive relationship? Are you a victim of rape or sexual assult? Call [facility] ([place]) 24 hour Crisis Hotline: 924.871.4697 or 587-191-8715. MANUAL Your Guide to a Healthy manual is now on-line. Visit [email or web address] to download your free copy documented in this [facility] Progress note* Quick Notes - Dante Waite MD - 11/12/2024 12:30 PM EDT Brief visit, still breech, plan f/u in 3 days and if breech trial ECV. Dante Waite MD` [facility]08-01-2025 Miscellaneous Notes* Quick Notes - Dante Waite MD - 11/12/2024 12:30 PM EDT Brief visit, still breech, plan f/u in 3 days and if breech trial ECV. Dante Waite MD` documented in this [facility] Instructions* Patient Instructions* Milana Quintana MA - 11/12/2024 10:49 AM EDT SEQUENTIAL SCREENINGS The [facility] offers sequential screenings for women who are interested in screenings for chromosomal abnormalities and certain defects during a . The sequential screen combinesultrasound and blood tests to determine the risk of chromosomal abnormalities, including Down's Syndrome (Trisomy 21) and Trisomy 18, as well as open neural tube defects including spina bifida. Ultrasound examination is performed between 11 weeks and 13 weeks gestational age. Blood tests are drawn after the ultrasound and again later in the between 15 and 21 weeks gestational age. Please let your physician know if you are interested in this testing. It will require an appointment withour interactive video technician. This is not an ultrasound performed by a physician in our office during a routine visit. SIGNS AND SYMPTOMS OF LABOR 1. Contractions every 10 minutes or more often 2. Clear, pink, or brownish fluid (water) leaking from vagina 3. Feeling that baby is pushing down, pressure 4. Low, dull backache 5. Cramps that feel like a period 6. Cramps with or without diarrhea If you notice any of the above symptoms, contact our office at [phone] and ask to speak with anurse. After hours, you can call doctors registry at [phone] OR call [facility] at [phone] ask to have the doctor correctional supply supervisor paged. If you consider this an emergency, dial 9-5-2 or go to your nearest emergency department. NEED HELP? Are you dealing with a violent or abusive relationship? Are you a victim of rape or sexual assult? Call [facility] ([facility] 24 hour Crisis Hotline: 342.455.2414 or 887-934-0030. MANUAL Your Guide to a Healthy manual is now on-line. Visit [email or web address] to download your free copy documented in this encounter[facility] Telephone encounter Note * Telephone Encounter - Dante Waite MD - 11/11/2024 3:40 PM EDT work her in tomorrow am w me anytime for quick eval. Dante Waite MD [facility]07-31-2025 Miscellaneous Notes* Telephone Encounter - Dante Waite MD - 11/11/2024 3:40 PM EDT work her in tomorrow am w me anytime for quick eval. Dante Waite MD documented in this encounter[facility] Progress note* Quick Notes - Dante Waite MD - 11/10/2024 10:47 AM EDT RR- VB No. LOF No. CTXS No. Movement: present. Other c/o: No. Medication list reviewed. SENSITIVE EXAM: Sensitive exam not performed. Physical Exam See Flow Sheet Abd: soft, nontender, gravid A/P 36w4d Estimated Date of Delivery: 12/04/24 Assessment & Plan Supervision of high risk in third trimester ([facility]) Orders: URINE OB DIP B/O ROUTINE, GROUP B STREPTOCOCCUS BY PCR Hx of preeclampsia, prior , currently ([facility]) bp stable, call for signs/symptoms of preeclampsia Orders: URINE OB DIP B/O ROUTINE, GROUP B STREPTOCOCCUS BY PCR 36 weeks gestation of ([facility]) Orders: URINE OB DIP B/O ROUTINE, GROUP B STREPTOCOCCUS BY PCR Breech presentation with problem, single or unspecified fetus ([facility]) r/b/a to ECV reviewed, desires to attempt if still breech next week. kick counts US confirms breech. Dante Waite M.D. [facility]07-30-2025 Miscellaneous Notes* Quick Notes - Dante Waite MD - 11/10/2024 10:47 AM EDT RR- VB No. LOF No. CTXS No. Movement: present. Other c/o: No. Medication list reviewed. SENSITIVE EXAM: Sensitive exam not performed. Physical Exam See Flow Sheet Abd: soft, nontender, gravid A/P 36w4d Estimated Date of Delivery: 12/04/24 Assessment & Plan Supervision of high risk in third trimester ([facility]) Orders: URINE OB DIP B/O ROUTINE, GROUP B STREPTOCOCCUS BY PCR Hx of preeclampsia, prior , currently ([facility]) bp stable, call for signs/symptoms of preeclampsia Orders: URINE OB DIP B/O ROUTINE, GROUP B STREPTOCOCCUS BY PCR 36 weeks gestation of ([facility]) Orders: URINE OB DIP B/O ROUTINE, GROUP B STREPTOCOCCUS BY PCR Breech presentation with problem, single or unspecified fetus ([facility]) r/b/a to ECV reviewed, desires to attempt if still breech next week. kick counts US confirms breech. Dante Waite M.D. documented in this encounterMet[facility]25 Instructions* Patient Instructions* Milana Quintana MA - 11/10/2024 10:41 AM EDT SEQUENTIAL SCREENINGS The [facility] offers sequential screenings for women who are interested in screenings for chromosomal abnormalities and certain defects during a . The sequential screen combinesultrasound and blood tests to determine the risk of chromosomal abnormalities, including Down's Syndrome (Trisomy 21) and Trisomy 18, as well as open neural tube defects including spina bifida. Ultrasound examination is performed between 11 weeks and 13 weeks gestational age. Blood tests are drawn after the ultrasound and again later in the between 15 and 21 weeks gestational age. Please let your physician know if you are interested in this testing. It will require an appointment withour interactive video technician. This is not an ultrasound performed by a physician in our office during a routine visit. SIGNS AND SYMPTOMS OF LABOR 1. Contractions every 10 minutes or more often 2. Clear, pink, or brownish fluid (water) leaking from vagina 3. Feeling that baby is pushing down, pressure 4. Low, dull backache 5. Cramps that feel like a period 6. Cramps with or without diarrhea If you notice any of the above symptoms, contact our office at [phone] and ask to speak with anurse. After hours, you can call doctors registry at [phone] OR call [facility] at [phone] ask to have the doctor correctional supply supervisor paged. If you consider this an emergency, dial 5-7-0 or go to your nearest emergency department. NEED HELP? Are you dealing with a violent or abusive relationship? Are you a victim of rape or sexual assult? Call [facility] ([place]) 24 hour Crisis Hotline: 339.858.4814 or 782-052-3185. MANUAL Your Guide to a Healthy manual is now on-line. Visit [email or web address] to download your free copy documented in this encounterMetro[facility]07-16-2025 Progress note* Quick Notes - Dante Waite MD - 10/27/2024 8:49 AM EDT RR- VB No. LOF No. CTXS few BH Movement: present. Other c/o: denies AMAYA or visual changes Medication list reviewed. SENSITIVE EXAM: Sensitive exam not performed. Physical Exam See Flow Sheet Abd: soft, nontender, gravid Ext: edema: Trace A/P 34w4d Estimated Date of Delivery: 12/04/24 Problem List Items Addressed This Visit Anemia during in third trimester ([facility]) Overview September 16, 2024 10.3 hemoglobin. Oral iron started. Macarena Perez, GARETH.CRATE BUILDER Relevant Orders URINE OB DIP B/O (Completed) Hx of preeclampsia, prior , currently ([facility]) Relevant Orders URINE OB DIP B/O (Completed) Other Visit Diagnoses Supervision of high risk in third trimester ([facility]) - Primary Relevant Orders URINE OB DIP B/O (Completed) 34 weeks gestation of ([facility]) no signs or symptoms of preeclampsia, cont. to monitor kick counts f/u in 2 weeks or prn likely would elect for 39 week induction Dante Waite M.D. [facility]07-16-2025 Miscellaneous Notes* Quick Notes - Dante Waite MD - 10/27/2024 8:49 AM EDT RR- VB No. LOF No. CTXS few BH Movement: present. Other c/o: denies AMAYA or visual changes Medication list reviewed. SENSITIVE EXAM: Sensitive exam not performed. Physical Exam See Flow Sheet Abd: soft, nontender, gravid Ext: edema: Trace A/P 34w4d Estimated Date of Delivery: 12/04/24 Problem List Items Addressed This Visit Anemia during in third trimester ([facility]) Overview September 16, 2024 10.3 hemoglobin. Oral iron started. Macarena Perez, GARETH.CRATE BUILDER Relevant Orders URINE OB DIP B/O (Completed) Hx of preeclampsia, prior , currently ([facility]) Relevant Orders URINE OB DIP B/O (Completed) Other Visit Diagnoses Supervision of high risk in third trimester ([facility]) - Primary Relevant Orders URINE OB DIP B/O (Completed) 34 weeks gestation of ([facility]) no signs or symptoms of preeclampsia, cont. to monitor kick counts f/u in 2 weeks or prn likely would elect for 39 week induction Dante Waite M.D. documented in this encounterMetrohealth [facility]07-16-2025 Instructions* Patient Instructions* Milana Quintana MA - 10/27/2024 8:42 AM EDT SEQUENTIAL SCREENINGS The [facility] offers sequential screenings for women who are interested in screenings for chromosomal abnormalities and certain defects during a . The sequential screen combinesultrasound and blood tests to determine the risk of chromosomal abnormalities, including Down's Syndrome (Trisomy 21) and Trisomy 18, as well as open neural tube defects including spina bifida. Ultrasound examination is performed between 11 weeks and 13 weeks gestational age. Blood tests are drawn after the ultrasound and again later in the between 15 and 21 weeks gestational age. Please let your physician know if you are interested in this testing. It will require an appointment withour interactive video technician. This is not an ultrasound performed by a physician in our office during a routine visit. SIGNS AND SYMPTOMS OF LABOR 1. Contractions every 10 minutes or more often 2. Clear, pink, or brownish fluid (water) leaking from vagina 3. Feeling that baby is pushing down, pressure 4. Low, dull backache 5. Cramps that feel like a period 6. Cramps with or without diarrhea If you notice any of the above symptoms, contact our office at [phone] and ask to speak with anurse. After hours, you can call doctors registry at [phone] OR call [facility] at [phone] ask to have the doctor correctional supply supervisor paged. If you consider this an emergency, dial 0-1- or go to your nearest emergency department. NEED HELP? Are you dealing with a violent or abusive relationship? Are you a victim of rape or sexual assult? Call [facility] ([place]) 24 hour Crisis Hotline: 621.188.2169 or 380-078-4948. MANUAL Your Guide to a Healthy manual is now on-line. Visit [email or web address] to download your free copy documented in this encounterMetro[facility]07-02-2025 Progress note* Quick Notes - Dante Waite MD - 10/13/2024 8:42 AM EDT RR- VB No. LOF No. CTXS No. Movement: present. Other c/o: No. Medication list reviewed. SENSITIVE EXAM: Sensitive exam not performed. Physical Exam See Flow Sheet Abd: soft, nontender, gravid Ext: edema: Trace A/P 32w4d Estimated Date of Delivery: 12/04/24 Assessment & Plan Supervision of high risk in third trimester ([facility]) Orders: COMPLETE BLOOD COUNT; Future Hx of preeclampsia, prior , currently ([facility]) bp stable Orders: COMPLETE BLOOD COUNT; Future Anemia during in third trimester ([facility]) Orders: COMPLETE BLOOD COUNT; Future 32 weeks gestation of ([facility]) Orders: COMPLETE BLOOD COUNT; Future f/u in 2 weeks or prn cont. fe for anemia, last hgb 10.7 no need to repeat at this time Dante Waite M.D. [facility]07-02-2025 Miscellaneous Notes* Quick Notes - Dante Waite MD - 10/13/2024 8:42 AM EDT RR- VB No. LOF No. CTXS No. Movement: present. Other c/o: No. Medication list reviewed. SENSITIVE EXAM: Sensitive exam not performed. Physical Exam See Flow Sheet Abd: soft, nontender, gravid Ext: edema: Trace A/P 32w4d Estimated Date of Delivery: 12/04/24 Assessment & Plan Supervision of high risk in third trimester ([facility]) Orders: COMPLETE BLOOD COUNT; Future Hx of preeclampsia, prior , currently ([facility]) bp stable Orders: COMPLETE BLOOD COUNT; Future Anemia during in third trimester ([facility]) Orders: COMPLETE BLOOD COUNT; Future 32 weeks gestation of ([facility]) Orders: COMPLETE BLOOD COUNT; Future f/u in 2 weeks or prn cont. fe for anemia, last hgb 10.7 no need to repeat at this time Dante Waite M.D. documented in this encounterMetro[facility]06-23-2025 Telephone encounter Note * Telephone Encounter - Cem Back RN - 10/04/2024 1:42 PM EDT Faxed. Cem Back RN [facility]06-23-2025 Miscellaneous Notes* Telephone Encounter - Cem Back RN - 10/04/2024 1:42 PM EDT Faxed. Cem Back RN * Telephone Encounter - Mare Larios RN - 10/04/2024 8:49 AM EDT Received breast pump RX from [employer]. To RR to sign. Mare Larios RN documented in this encounterMetrohealth [facility]06-23-2025 Telephone encounter Note * Telephone Encounter - Mare Larios RN - 10/04/2024 8:49 AM EDT Received breast pump RX from [facility]. To RR to sign. Mare Larios RN [facility]06-16-2025 NoteHNO ID: [id number] Author: TARA PARKS APRN.[facility] Service: ? Author Type: Metaphysicist Type: Progress Notes Filed: 09/27/2024 09:21 Note Text: BEAU-S: Herb Moran is a 34 year old female who presents at 30w2d with EDIL:12/04/2024, by Last Menstrual Period for a problem visit. Denies visual changes, chest pain, shortness of breath, vaginal bleeding, leakage of fluid, or dysuria. Fever started 2 days ago, chills. Headache but no visual changes. Every 6 hr will need to retake tylenol. No other symptoms other than headache. Eating and drinking ok. Some urinary frequency. Temperature at home this am was 98 and took tylenol at 0215 this am. O: See flow sheet Gen: No apparent distress Lungs: CTA Heart: RRR, no murmur Abd: Gravid, nontender BP 115/73 Pulse 103 Temp 36.7 ?C (98 ?F) Wt 84.4 kg (186 lb) LMP 02/28/2024 BMI 30.91 kg/m? ASSESSMENT/PLAN: 1. Supervision of high risk in third trimester -Taking PNV and ASA -Continue iron supplement 2. 30 weeks gestation of 3. Hx of preeclampsia, prior , currently -BP normal 4. Hx of gestational diabetes in prior , currently 5. Urinary frequency -urine culture today 6. Fever -No fever at this time. Ok to continue tylenol. Recommend PCP or urgent care for management PTL precautions reviewed and when to call RTO as scheduled. Tara Parks APRN.[facility] History of Present illness Narrative* Tara Parks APRN.CNM - 09/27/2024 8:48 AM EDT DOS: Herb Moran is a 34 year old female who presents at 30w2d with EDIL:12/04/2024, by Last Menstrual Period for a problem visit. Denies visual changes, chest pain, shortness of breath, vaginalbleeding, leakage of fluid, or dysuria. Fever started 2 days ago, chills. Headache but no visual changes. Every 6 hr will need to retake tylenol. No other symptoms other than headache. Eating and drinking ok. Some urinary frequency. Temperature at home this am was 98 and took tylenol at 0215 this am. O: See flow sheet Gen: No apparent distress Lungs: CTA Heart: RRR, no murmur Abd: Gravid, nontender BP 115/73 Pulse 103 Temp 36.7 C (98 F) Wt 84.4 kg (186 lb) LMP 02/28/2024 BMI 30.91 kg/m ASSESSMENT/PLAN: 1. Supervision of high risk in third trimester -Taking PNV and ASA -Continue iron supplement 2. 30 weeks gestation of 3. Hx of preeclampsia, prior , currently -BP normal 4. Hx of gestational diabetes in prior , currently 5. Urinary frequency -urine culture today 6. Fever -No fever at this time. Ok to continue tylenol. Recommend PCP or urgent care for management PTL precautions reviewed and when to call RTO as scheduled. Tara Parks APRN.CNM documented in this encounterMetrohealth [facility]06-16-2025 Instructions* Patient Instructions* Cody France MA - 09/27/2024 8:42 AM EDT SEQUENTIAL SCREENINGS The [facility] offers sequential screenings for women who are interested in screenings for chromosomal abnormalities and certain defects during a . The sequential screen combinesultrasound and blood tests to determine the risk of chromosomal abnormalities, including Down's Syndrome (Trisomy 21) and Trisomy 18, as well as open neural tube defects including spina bifida. Ultrasound examination is performed between 11 weeks and 13 weeks gestational age. Blood tests are drawn after the ultrasound and again later in the between 15 and 21 weeks gestational age. Please let your physician know if you are interested in this testing. It will require an appointment withour interactive video technician. This is not an ultrasound performed by a physician in our office during a routine visit. SIGNS AND SYMPTOMS OF LABOR 1. Contractions every 10 minutes or more often 2. Clear, pink, or brownish fluid (water) leaking from vagina 3. Feeling that baby is pushing down, pressure 4. Low, dull backache 5. Cramps that feel like a period 6. Cramps with or without diarrhea If you notice any of the above symptoms, contact our office at [phone] and ask to speak with anurse. After hours, you can call doctors registry at [phone] OR call [facility] at [phone] ask to have the doctor correctional supply supervisor paged. If you consider this an emergency, dial 0-5-9 or go to your nearest emergency department. NEED HELP? Are you dealing with a violent or abusive relationship? Are you a victim of rape or sexual assult? Call [facility] ([place]) 24 hour Crisis Hotline: 475.504.4944 or 186-715-2306. MANUAL Your Guide to a Healthy manual is now on-line. Visit [email or web address] to download your free copy documented in this encounterMetrohealth [facility]06-04-2025 Progress note* Quick Notes - Dante Waite MD - 09/15/2024 8:51 AM EDT RR- VB No. LOF No. CTXS No. Movement: present. Other c/o: No. Medication list reviewed. SENSITIVE EXAM: Sensitive exam not performed. Physical Exam See Flow Sheet Abd: soft, nontender, gravid Ext: edema: no A/P 28w4d Estimated Date of Delivery: 12/04/24 Assessment & Plan Supervision of high risk in third trimester (HCC) 28 week labs declines LARC at delivery 28 weeks gestation of (HCC) Need for vaccination tdap today Dante Waite M.D. [facility]06-04-2025 Miscellaneous Notes* Quick Notes - Dante Waite MD - 09/15/2024 8:51 AM EDT RR- VB No. LOF No. CTXS No. Movement: present. Other c/o: No. Medication list reviewed. SENSITIVE EXAM: Sensitive exam not performed. Physical Exam See Flow Sheet Abd: soft, nontender, gravid Ext: edema: no A/P 28w4d Estimated Date of Delivery: 12/04/24 Assessment & Plan Supervision of high risk in third trimester (HCC) 28 week labs declines LARC at delivery 28 weeks gestation of (HCC) Need for vaccination tdap today Dante Waite M.D. documented in this encounterMetrohealth [facility]06-04-2025 NoteHNO ID: [id number] Author: MARIANELA CAMPOS MA Service: ? Author Type: Pointing Machine Operator Type: Progress Notes Filed: 09/15/2024 09:17 Note Text: Patient identified by name and date of . Herb Moran presents today for a vaccination of Tdap. Patient denies an allergy to latex: yes Patient denies a severe (life-threatening) allergy to a previous dose of Tdap, DTP, DTaP, DT or Td vaccine. Yes Patient denies history of epilepsy or neurological problems: Yes Patient is afebrile and denies being moderately or severely ill: Yes Patient denies history of Guillain-[place] Syndrome (a severe paralytic illness): Yes Tdap Adacel injection was given without incident. See immunizations for details of immunizations administered today. VIS sheet provided: Yes Provider Dr Waite was present in office at time of injection. [facility] History of Present illness Narrative* Marianela Campos MA - 09/15/2024 8:27 AM EDT Patient identified by name and date of . Herb Moran presents today for a vaccination of Tdap. Patient denies an allergy to latex: yes Patient denies a severe (life-threatening) allergy to a previous dose of Tdap, DTP, DTaP, DT or Td vaccine. Yes Patient denies history of epilepsy or neurological problems: Yes Patient is afebrile and denies being moderately or severely ill: Yes Patient denies history of Guillain-[place] Syndrome (a severe paralytic illness): Yes Tdap Adacel injection was given without incident. See immunizations for details of immunizations administered today. VIS sheet provided: Yes Provider Dr Waite was present in office at time of injection. Milana Quintana MA documented in this encounterMetrohealth [facility]05-07-2025 Progress note* Quick Notes - Dante Waite MD - 08/18/2024 8:29 AM EDT RR- VB No. LOF No. CTXS No. Movement: present. Other c/o: No. Medication list reviewed. SENSITIVE EXAM: Sensitive exam not performed. Physical Exam See Flow Sheet Abd: soft, nontender, gravid Ext: edema: Trace A/P 24w4d Estimated Date of Delivery: 12/04/24 Assessment & Plan Supervision of high risk in second trimester (HCC) 24 weeks gestation of (HCC) Orders: GESTATIONAL GLUCOSE SCREEN, 1-HOUR, 50 GRAM, NON-FASTING; Future SYPHILIS TREPONEMAL W/REFLEX; Future ANEMIA REFLEX PANEL; Future Screening for diabetes mellitus Orders: GESTATIONAL GLUCOSE SCREEN, 1-HOUR, 50 GRAM, NON-FASTING; Future SYPHILIS TREPONEMAL W/REFLEX; Future ANEMIA REFLEX PANEL; Future F/u in 4 weeks or prn cont. PNV Dante Waite M.D. [facility]05-07-2025 Miscellaneous Notes* Quick Notes - Dante Waite MD - 08/18/2024 8:29 AM EDT RR- VB No. LOF No. CTXS No. Movement: present. Other c/o: No. Medication list reviewed. SENSITIVE EXAM: Sensitive exam not performed. Physical Exam See Flow Sheet Abd: soft, nontender, gravid Ext: edema: Trace A/P 24w4d Estimated Date of Delivery: 12/04/24 Assessment & Plan Supervision of high risk in second trimester (HCC) 24 weeks gestation of (HCC) Orders: GESTATIONAL GLUCOSE SCREEN, 1-HOUR, 50 GRAM, NON-FASTING; Future SYPHILIS TREPONEMAL W/REFLEX; Future ANEMIA REFLEX PANEL; Future Screening for diabetes mellitus Orders: GESTATIONAL GLUCOSE SCREEN, 1-HOUR, 50 GRAM, NON-FASTING; Future SYPHILIS TREPONEMAL W/REFLEX; Future ANEMIA REFLEX PANEL; Future F/u in 4 weeks or prn cont. PNV Dante Waite M.D. documented in this encounterMetrohealth [facility]05-07-2025 Instructions* Patient Instructions* Milana Quintana MA - 08/18/2024 8:19 AM EDT SEQUENTIAL SCREENINGS The [facility] offers sequential screenings for women who are interested in screenings for chromosomal abnormalities and certain defects during a . The sequential screen combinesultrasound and blood tests to determine the risk of chromosomal abnormalities, including Down's Syndrome (Trisomy 21) and Trisomy 18, as well as open neural tube defects including spina bifida. Ultrasound examination is performed between 11 weeks and 13 weeks gestational age. Blood tests are drawn after the ultrasound and again later in the between 15 and 21 weeks gestational age. Please let your physician know if you are interested in this testing. It will require an appointment withour interactive video technician. This is not an ultrasound performed by a physician in our office during a routine visit. SIGNS AND SYMPTOMS OF LABOR 1. Contractions every 10 minutes or more often 2. Clear, pink, or brownish fluid (water) leaking from vagina 3. Feeling that baby is pushing down, pressure 4. Low, dull backache 5. Cramps that feel like a period 6. Cramps with or without diarrhea If you notice any of the above symptoms, contact our office at [phone] and ask to speak with anurse. After hours, you can call doctors registry at [phone] OR call [facility] at [phone] ask to have the doctor correctional supply supervisor paged. If you consider this an emergency, dial 9-9 or go to your nearest emergency department. NEED HELP? Are you dealing with a violent or abusive relationship? Are you a victim of rape or sexual assult? Call [facility] ([place]) 24 hour Crisis Hotline: 456.575.2296 or 291-792-7582. MANUAL Your Guide to a Healthy manual is now on-line. Visit [email or web address] to download your free copy documented in this encounterMetrohealth [facility]04-09-2025 NoteHNO ID: [id number] Author: MACARENA PEREZ APRN.[employer] Service: ? Author Type: Nurse Practitioner Type: Progress Notes Filed: 07/21/2024 15:58 Note Text: EH - S: Mansi is a 34 year old female who presents at 20w4d for a routine visit. Feeling movement. Denies headache, visual changes, chest pain, shortness of breath, vaginal bleeding, leakage of fluid, or dysuria. Feeling well, no complaints. O: See flow sheet Gen: No apparent distress Abd: Gravid, nontender ASSESSMENT/PLAN: 1. Supervision of high risk in second trimester (HCC) - ICD9: V23.9, ICD10: O09.92 (primary diagnosis) - Continue PNV and LDA 2. 20 weeks gestation of ([facility]) - ICD9: V22.2, ICD10: Z3A.20 - Anatomy ultrasound today, report pending 3. Hx of preeclampsia, prior , currently ([facility]) - ICD9: V23.49, ICD10: O09.299 4. Hx of gestational diabetes in prior , currently ([facility]) - ICD9: V23.49, ICD10: O09.299, Z86.32 PTL precautions reviewed. RTO in 4 weeks or sooner as needed. Macarena Perez APRN.CNPBlanchard Valley Health [facility]04-09-2025 History of Present illness Narrative* Macarena Perez APRN.CNP - 07/21/2024 2:55 PM EDT EH - S: Mansi is a 34 year old female who presents at 20w4d for a routine visit. Feeling movement. Denies headache, visual changes, chest pain, shortness of breath, vaginal bleeding, leakage of fluid, or dysuria. Feeling well, no complaints. O: See flow sheet Gen: No apparent distress Abd: Gravid, nontender ASSESSMENT/PLAN: 1. Supervision of high risk in second trimester ([facility]) - ICD9: V23.9, ICD10: O09.92 (primary diagnosis) - Continue PNV and LDA 2. 20 weeks gestation of ([facility]) - ICD9: V22.2, ICD10: Z3A.20 - Anatomy ultrasound today, report pending 3. Hx of preeclampsia, prior , currently ([facility]) - ICD9: V23.49, ICD10: O09.299 4. Hx of gestational diabetes in prior , currently ([facility]) - ICD9: V23.49, ICD10: O09.299, Z86.32 PTL precautions reviewed. RTO in 4 weeks or sooner as needed. Macarena Perez APRN.[employer]ATE BUILDER documented in this encounterMetrohealth [facility]04-09-2025 Instructions* Patient Instructions* Ligia Willard MA - 07/21/2024 2:31 PM EDT SEQUENTIAL SCREENINGS The [facility] offers sequential screenings for women who are interested in screenings for chromosomal abnormalities and certain defects during a . The sequential screen combinesultrasound and blood tests to determine the risk of chromosomal abnormalities, including Down's Syndrome (Trisomy 21) and Trisomy 18, as well as open neural tube defects including spina bifida. Ultrasound examination is performed between 11 weeks and 13 weeks gestational age. Blood tests are drawn after the ultrasound and again later in the between 15 and 21 weeks gestational age. Please let your physician know if you are interested in this testing. It will require an appointment withour interactive video technician. This is not an ultrasound performed by a physician in our office during a routine visit. SIGNS AND SYMPTOMS OF LABOR 1. Contractions every 10 minutes or more often 2. Clear, pink, or brownish fluid (water) leaking from vagina 3. Feeling that baby is pushing down, pressure 4. Low, dull backache 5. Cramps that feel like a period 6. Cramps with or without diarrhea If you notice any of the above symptoms, contact our office at [phone] and ask to speak with anurse. After hours, you can call doctors registry at [phone] OR call [facility] at [phone] ask to have the doctor correctional supply supervisor paged. If you consider this an emergency, dial 9--0 or go to your nearest emergency department. NEED HELP? Are you dealing with a violent or abusive relationship? Are you a victim of rape or sexual assult? Call [facility] ([place]) 24 hour Crisis Hotline: 737.774.7782 or 026-409-9149. MANUAL Your Guide to a Healthy manual is now on-line. Visit [email or web address] to download your free copy documented in this encounterMet[facility]-12-[facility]25 Progress note* Quick Notes - Dante Waite MD - 06/23/2024 10:22 AM EDT RR- VB No. LOF No. CTXS No. Movement: maybe. Other c/o: No. Medication list reviewed. SENSITIVE EXAM: Sensitive exam not performed. Physical Exam See Flow Sheet Abd: soft, nontender, gravid Ext: edema: Trace A/P 16w4d Estimated Date of Delivery: 12/04/24 Assessment & Plan Hx of preeclampsia, prior , currently Encounter for supervision of normal in multigravida 16 weeks gestation of f/u in 4 weeks or prn US scheduled cont. PNV and ASA declines aneuploidy screening Dante Waite M.D. [facility]03-12-2025 Miscellaneous Notes* Quick Notes - Dante Waite MD - 06/23/2024 10:22 AM EDT RR- VB No. LOF No. CTXS No. Movement: maybe. Other c/o: No. Medication list reviewed. SENSITIVE EXAM: Sensitive exam not performed. Physical Exam See Flow Sheet Abd: soft, nontender, gravid Ext: edema: Trace A/P 16w4d Estimated Date of Delivery: 12/04/24 Assessment & Plan Hx of preeclampsia, prior , currently Encounter for supervision of normal in multigravida 16 weeks gestation of f/u in 4 weeks or prn US scheduled cont. PNV and ASA declines aneuploidy screening Dante Waite M.D. documented in this encounterMet[facility]02-19-2025 Progress note* Quick Notes - Dante Waite MD - 06/02/2024 11:39 AM EST RR- Doing well overall. No VB. Taking PNV. F/u in 2 weeks or prn. D/w her aneuploidy screening and declines at this time. Cont. asa and pNV. Dante Waite MD [facility]02-19-2025 Miscellaneous Notes* Quick Notes - Dante Waite MD - 06/02/2024 11:39 AM EST RR- Doing well overall. No VB. Taking PNV. F/u in 2 weeks or prn. D/w her aneuploidy screening and declines at this time. Cont. asa and pNV. Dante Waite MD documented in this encounterMet[facility]02-19-2025 Instructions* Patient Instructions* Milana Quintana MA - 06/02/2024 11:23 AM EST SEQUENTIAL SCREENINGS The [facility] offers sequential screenings for women who are interested in screenings for chromosomal abnormalities and certain defects during a . The sequential screen combinesultrasound and blood tests to determine the risk of chromosomal abnormalities, including Down's Syndrome (Trisomy 21) and Trisomy 18, as well as open neural tube defects including spina bifida. Ultrasound examination is performed between 11 weeks and 13 weeks gestational age. Blood tests are drawn after the ultrasound and again later in the between 15 and 21 weeks gestational age. Please let your physician know if you are interested in this testing. It will require an appointment withour interactive video technician. This is not an ultrasound performed by a physician in our office during a routine visit. SIGNS AND SYMPTOMS OF LABOR 1. Contractions every 10 minutes or more often 2. Clear, pink, or brownish fluid (water) leaking from vagina 3. Feeling that baby is pushing down, pressure 4. Low, dull backache 5. Cramps that feel like a period 6. Cramps with or without diarrhea If you notice any of the above symptoms, contact our office at [phone] and ask to speak with anurse. After hours, you can call doctors registry at [phone] OR call [facility] at [phone] ask to have the doctor correctional supply supervisor paged. If you consider this an emergency, dial 1-6-5 or go to your nearest emergency department. NEED HELP? Are you dealing with a violent or abusive relationship? Are you a victim of rape or sexual assult? Call [facility] ([place]) 24 hour Crisis Hotline: 742.670.2244 or 834-999-6455. MANUAL Your Guide to a Healthy manual is now on-line. Visit [email or web address] to download your free copy documented in this encounterMet[facility]02-04-2025 Progress note* Quick Notes - Dante Waite MD - 05/18/2024 8:52 AM EST RR- doing well overall. No VB. Taking PNV. A little tired otherwise doing well. PLans to start ASA soon. Declines NIPT for now. Dante Waite MD [facility]02-[facility] Miscellaneous Notes* Quick Notes - Dante Waite MD - 05/18/2024 8:52 AM EST RR- doing well overall. No VB. Taking PNV. A little tired otherwise doing well. PLans to start ASA soon. Declines NIPT for now. Dante Waite MD documented in this encounterMet[facility]02-04-2025 Instructions* Patient Instructions* Marianela Campos MA - 05/18/2024 8:24 AM EST SEQUENTIAL SCREENINGS The [facility] offers sequential screenings for women who are interested in screenings for chromosomal abnormalities and certain defects during a . The sequential screen combinesultrasound and blood tests to determine the risk of chromosomal abnormalities, including Down's Syndrome (Trisomy 21) and Trisomy 18, as well as open neural tube defects including spina bifida. Ultrasound examination is performed between 11 weeks and 13 weeks gestational age. Blood tests are drawn after the ultrasound and again later in the between 15 and 21 weeks gestational age. Please let your physician know if you are interested in this testing. It will require an appointment withour interactive video technician. This is not an ultrasound performed by a physician in our office during a routine visit. SIGNS AND SYMPTOMS OF LABOR 1. Contractions every 10 minutes or more often 2. Clear, pink, or brownish fluid (water) leaking from vagina 3. Feeling that baby is pushing down, pressure 4. Low, dull backache 5. Cramps that feel like a period 6. Cramps with or without diarrhea If you notice any of the above symptoms, contact our office at [phone] and ask to speak with anurse. After hours, you can call doctors registry at [phone] OR call [facility] at [phone] ask to have the doctor correctional supply supervisor paged. If you consider this an emergency, dial 9--1 or go to your nearest emergency department. NEED HELP? Are you dealing with a violent or abusive relationship? Are you a victim of rape or sexual assult? Call [facility] ([place]) 24 hour Crisis Hotline: 606.505.4830 or 211-629-1793. MANUAL Your Guide to a Healthy manual is now on-line. Visit [email or web address] to download your free copy documented in this encounterMetro[facility]01-21-2025 NoteHNO ID: [id number] Author: DAYANA PERRY MD Service: ? Author Type: Physician Type: Progress Notes Filed: 05/04/2024 14:03 Note Text: The patient presents for requested ultrasound. Full report available in the Imaging tab in Repligen. Dayana Perry [facility]01-21-2025 History of Present illness Narrative* Dayana Perry MD - 05/04/2024 2:01 PM EST The patient presents for requested ultrasound. Full report available in the Imaging tab in Repligen. Dayana Perry MD documented in this encounterMet[facility]01-21-2025 Progress note* Quick Notes - Dante Waite MD - 05/04/2024 9:13 AM EST RR- No VB/LOF. Taking pNV. D/w her ASA prophylaxis. F/u in 2 weeks or prn to check FHTs, schedule early anatomy scan. Recommend cont. exercise and follow diabetic diet to decrease risk GDM. Dante Vargas MD [facility]01-21-2025 Miscellaneous Notes* Quick Notes - Dante Waite MD - 05/04/2024 9:13 AM EST RR- No VB/LOF. Taking pNV. D/w her ASA prophylaxis. F/u in 2 weeks or prn to check FHTs, schedule early anatomy scan. Recommend cont. exercise and follow diabetic diet to decrease risk GDM. Dante Vargas MD documented in this encounterMet[facility]01-21-2025 Instructions* Patient Instructions* Milana Quintana MA - 05/04/2024 8:33 AM EST SEQUENTIAL SCREENINGS The [facility] offers sequential screenings for women who are interested in screenings for chromosomal abnormalities and certain defects during a . The sequential screen combinesultrasound and blood tests to determine the risk of chromosomal abnormalities, including Down's Syndrome (Trisomy 21) and Trisomy 18, as well as open neural tube defects including spina bifida. Ultrasound examination is performed between 11 weeks and 13 weeks gestational age. Blood tests are drawn after the ultrasound and again later in the between 15 and 21 weeks gestational age. Please let your physician know if you are interested in this testing. It will require an appointment withour interactive video technician. This is not an ultrasound performed by a physician in our office during a routine visit. SIGNS AND SYMPTOMS OF LABOR 1. Contractions every 10 minutes or more often 2. Clear, pink, or brownish fluid (water) leaking from vagina 3. Feeling that baby is pushing down, pressure 4. Low, dull backache 5. Cramps that feel like a period 6. Cramps with or without diarrhea If you notice any of the above symptoms, contact our office at [phone] and ask to speak with anurse. After hours, you can call doctors registry at [phone] OR call [facility] at [phone] ask to have the doctor correctional supply supervisor paged. If you consider this an emergency, dial 9--1 or go to your nearest emergency department. NEED HELP? Are you dealing with a violent or abusive relationship? Are you a victim of rape or sexual assult? Call [facility] ([place]) 24 hour Crisis Hotline: 536.323.9338 or 749-143-6571. MANUAL Your Guide to a Healthy manual is now on-line. Visit [email or web address] to download your free copy documented in this encounterMetro[facility]01-06-2025 History of Present illness Narrative* Milana Quintana MA - 04/19/2024 8:15 AM EST OB point of care ultrasound was performed. See imaging tab for details. Milana Quintana MA * Mai Blanton APRN.BETITO - 04/19/2024 8:03 AM EST INITIAL OB ASSESSMENT Patient declined oracle pl sql developer. HPI: Mansi is a 34 year old White here to establish Obstetrical Care. Patient's last menstrual period was 02/28/2024. from OB Dating Form. was planned Complaints: No OB History T1 L2 SAB0 IAB0 Ectopic0 Multiple0 Live Births2 Previous history: Prior : No History of 4th degree laceration: Perineal Laceration, 3rd or 4th degree Unanswered History of shoulder dystocia: Shoulder Dystocia Unanswered History of Hypertensive disorders including pre-eclampsia or gestational hypertension: Gestational Hypertension Yes Preeclampsia Yes History of gestational diabetes: Diabetes in Unanswered Patient's Risk Screening for delivery: Have you had a prior mraia between 20w and 36w6d? (!) Yes Did you present in active spontaneous labor or have ruptured membranes, or advanced cervical dilation (greater than or equal to 4 cm) or effacement? (!) Yes How many pregnancies have you had before? 2 Did you have a previous baby with a GBS Infection? No Please select all that apply for any prior : N/A MEDICAL/PSYCHOSOCIAL HISTORY: Severe bleeding with delivery Unanswered History question Answer Diagnosis Date Comment Thyroid Disease No Thyroid disease 07/05/2019 Gestational Hypertension Yes Preeclampsia Yes Diabetes in Unanswered ABO/RH(D) Date Value Ref Range Status 07/06/2019 A POSITIVE Final BMI 27.92 kg/(m^2) Last Pap: 06/06/2021 History of abnormal pap: Abnormal Pap No Prior treatment for cervical dysplasia: none. Last HPV: 06/01/2021 History of STDs: N/A Partner History of STDs: None Did you have a partner with Herpes? No Tobacco use: No E-Cigarette/Vaping Use: No Caffeine use: Yes Drug use: No Alcohol use: No Multivitamin with Folic acid: Yes Would refuse blood transfusion if medically necessary: No Social Needs: How often does this describe you? I don't have enough money to pay my bills: Never Within the past 12 months, have you worried that your food would run out before you had money to buy more? Never In the past 12 months, has lack of reliable transportation kept you from going to medical appointments or work, or from getting things needed for daily living? Never In the past 12 months, have you had any concerns about having a place to live, or about the condition or quality of your housing? Never Would you like more information on any of the following (please check all that apply)? Not interested Social History: Do you have any history of depression, anxiety, PTSD, or other mood problems? No Do you have a history of abuse or trauma that may impact your experience? No Are you currently employed? Yes Depression/Anxiety Screening: denies symptoms of depression. OB Depression and Anxiety Screening- This Encounter (since 04/18/2024) Over the past 2 weeks have you felt down, depressed, or hopeless? Negative Over the past two weeks, have you felt little interest or pleasure in doing things? Negative Feeling nervous, anxious or on edge 0-Not at all Not being able to stop or control worrying 0-Not al all Anxiety Pre-Screening Total (If >/= 3 additional questions will be reviewed) 0 Genetic Screening: Partner present: Yes Patient verbalized knowledge of partner family health history: Yes Do you or your partner have any personal or family history of defects not previously discussed: No Do you have history of a complicated by anomaly, genetic condition, or demise: No OB Risk Screening: Completed, positive findings include: Patient answered 'Yes' they had a prior maria between 20w and 36w6d. Marital Status: Partner: Name: Alexis Age: 32 Occupation: Staff Radiologist Gender: Male PAST MEDICAL HISTORY Diagnosis Date Acne Anemia Gestational diabetes mellitus, class A1 11/22/2019 Hx of preeclampsia, prior , currently 05/24/2021 May 29, 2021 ASA candidate Preeclampsia PAST SURGICAL HISTORY Procedure Laterality Date EXTRACTION ERUPTED TOOTH/EXR 08/2022 NONE Current Outpatient Medications Medication Sig Dispense Refill vitamins no.2 ( VITAMIN NO.2 ORAL) Take by mouth once daily. clindamycin-benzoyl peroxide 1.2 %(1 % base) -3.75 % gel Apply to affected area as needed. No current facility-administered medications for this visit. Allergies As of Date: 04/19/2024 Allergen Noted Reaction SULFA (SULFONAMIDE ANTIBIOTICS) 04/19/2011 Hives Fully Assessed 04/19/2024 Does patient have penicillin allergy: No REVIEW OF SYSTEMS: GENERAL: Negative for: Fever or Chills HEENT: Negative for: Headache, Impaired Vision, Ringing in Ears, Nosebleeds NECK: Negative for: Swelling, Pain, Stiffness RESPIRATORY: Negative for: Cough, Shortness of breath, Wheezing GASTROINTESTINAL: Negative for: Heartburn, Constipation, Diarrhea, Blood in stool, Vomiting MUSCULOSKELETAL: Negative for: Muscle or joint pain, stiffness, Joint swelling NEUROLOGIC/PSYCHIATRIC: Negative for: Weakness, Paralysis, Numbness, Tingling, Tremor, Anxiety, Depression, Memory loss SKIN: Negative for: Rash, Itching GENITOURINARY: Negative for: vaginal itching, vaginal discharge, hematuria or dysuria SENSITIVE EXAM: The sensitive examination was discussed with the Patient or Patient's Authorized Toll Gate Tender. As applicable, any other physician, advance practice provider, medical student, or other health professional student that will be observing or involved in the sensitive examination for educational or training purposes was discussed with the Patient or Authorized Toll Gate Tender. The Patient or Authorized Toll Gate Tender has agreed to proceed with the sensitive examination. (Sensitive examination includes inspection and/or palpation of the breasts, pelvis, prostate and anorectal regions). PHYSICAL EXAM: BP 122/66 Wt 168 lb (76.2kg) LMP 02/28/2024 GENERAL: pleasant in no apparent distress DERMATOLOGY: Normal, without lesions, non-icteric, and non-hirsute NECK: Supple, full range of motion, no adenopathy, and thyroid normal CHEST: Normal inspiratory effort BREAST: soft, non-tender, symmetric, no dominant mass, normal nipple-areolar complex, no lymphadenopathy, and no nipple discharge ABDOMEN: soft, non-tender, and no masses NEURO: alert and oriented x3,exam grossly non-focal PELVIS: External genitalia normal without lesions. Perineal body intact. No vaginal or cervical lesions. Cervix closed. No adnexal masses or tenderness. Clinical Pelvimetry: Pelvimetry clinically assessed as adequate Limited OB ultrasound exam: single intrauterine , positive cardiac activity, and POCUS performed. +cardiac activity, CRL consistent with LMP. Mai Blanton APRN.CNP ASSESSMENT: 34 year old at 7w2d wks gestational age PLAN: 1) Patient oriented to practice. Patient given new OB orientation folder. Discussed nutrition, folic acid supplementation, dietary guidelines, exercise, smoking, alcohol, caffeine, and drug use. Discussed gestational weight gain guidelines. Discussed routine OB labs including STD/HIV. Discussed how to access Your guide to a health and the Hat Trimmer. Reviewed midwifery and auto phone installer services that are available. 2) Screening: Hemoglobin A1C: ordered Baby Aspirin: The patient has been counseled about the potential benefits of low dose aspirin in and our recommendation that this be offered to all patients, regardless of whether they meet the high risk criteria specified above. She Accepts Aneuploidy Screening: Discussed aneuploidy screening, nuchal translucency/first trimester early anatomy ultrasound and NIPT. The risks/benefits and limitations of NIPT/aneuploidy screening were reviewed including the potential for false negative and false positive results. The availability of genetic counseling was reviewed. Information on aneuploidy screening was provided. The patient declines screening Myriad Carrier Screening: Discussed myriad carrier screening. We discussed the availability of professional-society guided carrier screening and reviewed the conditions screened and limitations of screening. The availability of genetic counseling was reviewed. Information on carrier screening was provided. The patient Declines 3) Patient offered option of Virtual Visits. Patient unsure. May consider in future. 4) History of . Will order MFM consult for further discussion. History of diabetes: Given previous gestational diabetes or LGA baby, ordered early glucose screen or Hemoglobin A1C 5) OB US in 2 weeks Follow up in 4 weeks or sooner prn. Mai Blanton APRN.CNP documented in this encounterMet[facility]01-06-2025 NoteHNO ID: [id number] Author: MILANA QUINTANA MA Service: ? Author Type: Pointing Machine Operator Type: Progress Notes Filed: 04/19/2024 09:03 Note Text: OB point of care ultrasound was performed. See imaging tab for details. [facility] NoteHNO ID: [id number] Author: MAI BLANTON APRN.CRATE BUILDER Service: ? Author Type: Nurse Practitioner Type: Progress Notes Filed: 04/19/2024 09:03 Note Text: INITIAL OB ASSESSMENT Patient declined oracle pl sql developer. HPI: Mansi is a 34 year old White here to establish Obstetrical Care. Patient's last menstrual period was 02/28/2024. from OB Dating Form. was planned Complaints: No OB History T1 L2 SAB0 IAB0 Ectopic0 Multiple0 Live Births2 Previous history: Prior : No History of 4th degree laceration: Perineal Laceration, 3rd or 4th degree Unanswered History of shoulder dystocia: Shoulder Dystocia Unanswered History of Hypertensive disorders including pre-eclampsia or gestational hypertension: Gestational Hypertension Yes Preeclampsia Yes History of gestational diabetes: Diabetes in Unanswered Patient's Risk Screening for delivery: Have you had a prior maria between 20w and 36w6d? (!) Yes Did you present in active spontaneous labor or have ruptured membranes, or advanced cervical dilation (greater than or equal to 4 cm) or effacement? (!) Yes How many pregnancies have you had before? 2 Did you have a previous baby with a GBS Infection? No Please select all that apply for any prior : N/A MEDICAL/PSYCHOSOCIAL HISTORY: Severe bleeding with delivery Unanswered History question Answer Diagnosis Date Comment Thyroid Disease No Thyroid disease 07/05/2019 Gestational Hypertension Yes Preeclampsia Yes Diabetes in Unanswered ABO/RH(D) Date Value Ref Range Status 07/06/2019 A POSITIVE Final BMI 27.92 kg/(m2) Last Pap: 06/06/2021 History of abnormal pap: Abnormal Pap No Prior treatment for cervical dysplasia: none. Last HPV: 06/01/2021 History of STDs: N/A Partner History of STDs: None Did you have a partner with Herpes? No Tobacco use: No E-Cigarette/Vaping Use: No Caffeine use: Yes Drug use: No Alcohol use: No Multivitamin with Folic acid: Yes Would refuse blood transfusion if medically necessary: No Social Needs: How often does this describe you? I don't have enough money to pay my bills: Never Within the past 12 months, have you worried that your food would run out before you had money to buy more? Never In the past 12 months, has lack of reliable transportation kept you from going to medical appointments or work, or from getting things needed for daily living? Never In the past 12 months, have you had any concerns about having a place to live, or about the condition or quality of your housing? Never Would you like more information on any of the following (please check all that apply)? Not interested Social History: Do you have any history of depression, anxiety, PTSD, or other mood problems? No Do you have a history of abuse or trauma that may impact your experience? No Are you currently employed? Yes Depression/Anxiety Screening: denies symptoms of depression. OB Depression and Anxiety Screening- This Encounter (since 04/18/2024) Over the past 2 weeks have you felt down, depressed, or hopeless? Negative Over the past two weeks, have you felt little interest or pleasure in doing things?? Negative Feeling nervous, anxious or on edge 0-Not at all Not being able to stop or control worrying 0-Not al all Anxiety Pre-Screening Total (If >/= 3 additional questions will be reviewed) 0 Genetic Screening: Partner present: Yes Patient verbalized knowledge of partner family health history: Yes Do you or your partner have any personal or family history of defects not previously discussed: No Do you have history of a complicated by anomaly, genetic condition, or demise: No OB Risk Screening: Completed, positive findings include: Patient answered 'Yes' they had a prior maria between 20w and 36w6d. Marital Status: Partner: Name: Alexis Age: 32 Occupation: Staff Radiologist Gender: Male PAST MEDICAL HISTORY Diagnosis Date Acne Anemia Gestational diabetes mellitus, class A1 11/22/2019 Hx of preeclampsia, prior , currently 05/24/2021 May 29, 2021 ASA candidate Preeclampsia PAST SURGICAL HISTORY Procedure Laterality Date EXTRACTION ERUPTED TOOTH/EXR 08/2022 NONE Current Outpatient Medications Medication Sig Dispense Refill vitamins no.2 ( VITAMIN NO.2 ORAL) Take by mouth once daily. clindamycin-benzoyl peroxide 1.2 %(1 % base) -3.75 % gel Apply to affected area as needed. No current facility-administered medications for this visit. Allergies As of Date: 04/19/2024 Allergen Noted Reaction SULFA (SULFONAMIDE ANTIBIOTICS) 04/19/2011 Hives Fully Assessed 04/19/2024 Does patient have penicillin allergy: No REVIEW OF SYSTEMS: GENERAL: Negative for: Fever or Chills HEENT: Negative for: Hea (more content not included)...[facility]01-06-2025 Instructions* Patient Instructions* Carole Bae LPN - 04/19/2024 8:03 AM EST Please select the following link to access the [facility] Your Guide to a Healthy . [email or web address] documented in this encounterMetro[facility]12-11-2024 Telephone encounter Note * Telephone Encounter - Adelaide Altamirano RN - 03/24/2024 10:57 AM EST New OB appointment is not until 04/19/24. [facility]12-[facility] Miscellaneous Notes* Telephone Encounter - Adelaide Altamirano RN - 03/24/2024 10:57 AM EST New OB appointment is not until 04/19/24. documented in this encounterMetro[facility]06-28-2024 History of Present illness Narrative* Dante Waite MD - 10/10/2023 1:37 PM EDT Dance Hall Hostess offered: Patient declines. Mansi is a 33 year old who presents for an annual gynecologic exam without complaints. Menses: cycles every 28days and 3 days of flow. 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 History Comments: Sexual Activity: Yes; Male Contraception: Pill PAST MEDICAL HISTORY Diagnosis Date Acne Anemia Gestational diabetes mellitus, class A1 11/22/2019 Hx of preeclampsia, prior , currently 05/24/2021 May 29, 2021 ASA candidate Preeclampsia PAST SURGICAL HISTORY Procedure Laterality Date EXTRACTION ERUPTED TOOTH/EXR 08/2022 NONE FAMILY HISTORY Problem Relation Age of Onset No Known Problems Mother Hypertension Father No Known Problems Sister No Known Problems Sister Diabetes Maternal Grandmother Alzheimer's Disease Maternal Grandmother Hypertension Maternal Grandfather Leukemia Maternal Grandfather Heart Paternal Grandmother [place] Stroke Paternal Grandmother Heart Paternal Grandfather 48 Cancer Paternal Grandfather Skin other (Brain Tumor (Cancer)) Other Maternal Great Aunt No Known Problems Son SOCIAL HISTORY Social History Tobacco Use Smoking status: Never Smokeless tobacco: Never Vaping Use Vaping Use: Never used Substance Use Topics Alcohol use: No Drug use: No REVIEW OF SYSTEMS Abdomen: No abdominal pain, nausea, vomiting, diarrhea, or constipation. No bloating, early satiety, indigestion, or increased flatulence. Bladder: No dysuria, gross hematuria, urinary frequency, urinary urgency, or incontinence. Breast: No breast lumps, nipple d/c, overlying skin changes, redness or skin retraction. Allergies and current medication updated:Yes EXAM: BP 108/68 Ht 5' 5.039 (1.65m) Wt 165 lb 3.2 oz (74.9kg) LMP 10/02/2023 BMI 27.46 kg/(m^2). GENERAL: pleasant, female in no apparent distress HEENT: Normocephalic, atraumatic, mucus membranes moist, and no lesions NECK: Supple, full range of motion, no adenopathy, and thyroid normal DERMATOLOGY: Normal, without lesions, non-icteric, and non-hirsute BREAST: soft, non-tender, symmetric, no dominant mass, normal nipple-areolar complex, no lymphadenopathy, and no nipple discharge CHEST: Normal inspiratory effort ABDOMEN: soft, non-tender, and no masses PELVIC: external genitalia normal, normal Bartholin's glands, urethra, [place]'s glands, no vulvar lesions, no cervical lesions, good vaginal support, physiologic discharge present, normal appearing perineal body and perianal region BIMANUAL: uterus normal size, shape and consistency, no adnexal masses, and non-tender RECTOVAGINAL: deferred. NEURO: alert and oriented x3,exam grossly non-focal EXTREMITIES: normal ASSESSMENT/PLAN: 1) Health maintenance: Pap/HPV up to date. Mammogram starting age 40. 2) Contraception: combined hormonal contraceptives. Contraceptive options reviewed and information provided. 3) STD screening: Declined STD check. 4) Follow up one year or sooner as needed Dante Waite MD documented in this encounterMet[facility] Telephone encounter Note * Telephone Encounter - Itzel Santiago RN - 09/19/2023 11:39 AM EDT Annual scheduled with RR 11/25/23. Requesting 90 day supply. Requested Prescriptions Pending Prescriptions Disp Refills Desogestrel-Ethinyl Estradiol (KARIVA, 28,) 0.15-0.02 mgx21 /0.01 mg x 5 per tablet 84 tablet 0 Sig: Take 1 tablet by mouth once daily. Itzel Santiago RN [facility]06-07-[facility]24 Miscellaneous Notes* Telephone Encounter - Itzel Santiago RN - 09/19/2023 11:39 AM EDT Annual scheduled with RR 11/25/23. Requesting 90 day supply. Requested Prescriptions Pending Prescriptions Disp Refills Desogestrel-Ethinyl Estradiol (KARIVA, 28,) 0.15-0.02 mgx21 /0.01 mg x 5 per tablet 84 tablet 0 Sig: Take 1 tablet by mouth once daily. Itzel Santiago RN documented in this encounterMetro[facility]03-25-2024 Miscellaneous Notes* Telephone Encounter - Adelaide Altamirano RN - 07/07/2023 12:08 PM EDT [facility]. PSS: Please contact patient to schedule annual exam. Adelaide Altamirano RN documented in this encounterMet[facility]11-27-2023 Miscellaneous Notes* Telephone Encounter - Tara Parks APRN.CNM - 03/10/2023 1:37 PM EST Order signed. Tara Parks APRN.CNM * Telephone Encounter - Mare aLrios RN - 03/10/2023 10:42 AM EST UA and urine culture orders pending. documented in this encounterMetro[facility]11-24-2023 Miscellaneous Notes* Telephone Encounter - Mare Larios RN - 03/07/2023 9:29 AM EST Please review in RR's absence. Diflucan RX pending. documented in this encounterMetro[facility]06-05-2023 History of Present illness Narrative* Raimundo Ramon RT(R) - 09/16/2022 9:30 AM EDT Radiology Service Progress Note PATIENT NAME: Herb Moran DATE OF SERVICE: September 16, 2022 TIME: 9:26 AM PATIENT IDENTITY VERIFICATION COMPLETED USING TWO (2) IDENTIFIERS: Name and Date of confirmedby patient verbally. FALL SCREENING: Has the patient had 2 falls in the last year or 1 fall with injury or currently using an Ambulatory Assistive Device (Walker, Cane, Wheelchair, Crutches, etc.)? No PATIENT GENDER DATA: Female. status: : No status: NO. PATIENT RELEVANT IMPLANT DATA REVIEWED: Not Applicable RADIOLOGY DEPARTMENT: General X-ray: Exam(s) Completed: Chest X-Ray PERIPHERAL IV DATA: Not applicable SIGNED BY: RT Maria Eugenia(R) September 16, 2022 9:26 AM documented in this encounterMetro[facility]06-05-2023 History of Present illness Narrative* Best Lane MD - 09/16/2022 9:07 AM EDT Patient presents with: Cough: X 2 weeks HPI: Started coughing a few weeks ago; improved for about a week then started again 4 days ago. Family has been sick the last few weeks too. Positive symptoms: Cough, feels like she cannot get a full breath in, Chest does not feel right in the center, pain increases when lying down, Scratchy throat with mucus in it, Negative symptoms: Earache, Sinus pressure, Fever, Vomiting, Diarrhea, Nasal Congestion, Nausea, Vomiting, Diarrhea, palpitations, dizziness, OTC: Mucinex, nascort. MEDICATIONS: Current Outpatient Medications Medication Sig Desogestrel-Ethinyl Estradiol (KARIVA, 28,) 0.15-0.02 mgx21 /0.01 mg x 5 per tablet Take 1 tablet by mouth once daily. ferrous sulfate (IRON ORAL) Take by mouth. (Patient not taking: Reported on 03/05/2022) polyethylene glycol 3350 (MIRALAX ORAL) Take by mouth. (Patient not taking: Reported on 03/05/2022) Gpmygzpl-Il-Dxk-Fe-FA ( VITAMIN) tab Take 1 tablet by mouth. (Patient not taking: Reported on 09/16/2022) No current facility-administered medications for this visit. ALLERGIES: ALLERGIES Allergen Reactions Sulfa (Sulfonamide * Hives VITALS: BP 110/80 Pulse 102 Temp 37.3 C (99.2 F) Resp 21 Wt 77.2 kg (170 lb 3.2 oz) LMP 04/06/2021 (Exact Date) SpO2 99% BMI 27.89 kg/m PHYSICAL EXAM: GEN: Pleasant, in no acute distress. HEENT: PERRL, EOMI, conjunctiva clear Ears: canals clear. TMs without erythema, bulge, or effusion Sinuses: non-tender frontal sinus, non-tender maxillary sinuses Throat: moist mucous membranes, no erythema, no exudate Neck: supple, no thyromegaly, no lymphadenopathy HEART: regular rate and rhythm, no murmurs LUNGS: clear to auscultation, no wheezes or crackles, no increased WOB CHEST: no costochondral tenderness with palpation. ASSESSMENT/PLAN: 1. Acute cough - ICD9: 786.2, ICD10: R05.1 (primary diagnosis) 2. Discomfort in chest - ICD9: 786.59, ICD10: R07.89 3. LEDBETTER (dyspnea on exertion) - ICD9: 786.09, ICD10: R06.09 Elevated BP and temp also. On OCP. - XR CHEST 2V FRONTAL/LAT - negative. Differential includes pulmonary embolism and pericarditis. She will proceed to the emergency room for further evaluation. Report sent to [facility] by ER passport. Best Lane MD documented in this encounterMet[facility]04-25-2023 Miscellaneous Notes* Telephone Encounter - Kaila Pruitt LPN - 08/06/2022 7:39 AM EDT Pt to check with pharmacy to see if her insurance will allow more than one pack per month to be dispensed. Kaila Pruitt LPN documented in this encounterMetro[facility]03-23-2023 Miscellaneous Notes* Telephone Encounter - Dante Waite MD - 07/04/2022 8:34 AM EDT I spent 5 minutes reviewing chart, medication history, replying to patient and sending a new prescription. Dante Waite MD documented in this encounterMetro[facility]11-25-2022 Miscellaneous Notes* Telephone Encounter - Kaila Pruitt LPN - 03/08/2022 11:59 AM EST Pt returned call and was given below results and voiced understanding with no further questions. Kaila Pruitt LPN * Telephone Encounter - Isatu Zamora RN - 03/08/2022 11:03 AM EST Left message for patient to return phone call ----- Message from Alban Hooker MD sent at 03/08/2022 10:37 AM EST ----- No infection but transition from normal leandro. She can try OTC refresh and/or a take a daily probiotic to help balance vaginal leandro. Alban Hooker MD documented in this encounterMet[facility]11-23-2022 Miscellaneous Notes* Telephone Encounter - Itzel Santiago RN - 03/06/2022 10:38 AM EST Previous rx only dispensed 1 tablet. Pharmacy requesting new corrected rx. Requested Prescriptions Pending Prescriptions Disp Refills Norethindrone, Contraceptive, 0.35 mg tablet [Pharmacy Med Name: NORETHINDRONE 0.35 MG TABLET] 28 tablet 5 Sig: TAKE 1 TABLET BY MOUTH EVERY DAY Itzel Santiago RN documented in this encounterMet[facility]11-22-2022 History of Present illness Narrative* Alban Hooker MD - 03/05/2022 11:31 AM EST Obstetric History T1 L2 SAB0 IAB0 Ectopic0 Multiple0 Live Births2 Name of Baby 1: Francisco Date: 01/10/20 GA: 36w1d Delivery: Vaginal, Spontaneous Apgar1: 7 Apgar5: 9 Living: Living Name of Baby 2: Ch[place] Date: 01/04/22 GA: 39w0d Delivery: Vaginal, Spontaneous Apgar1: 8 Apgar5: 9 Living: Living Herb Moran is a 31 year old female who presents for problem visit. HPI: Patient presents with increased vaginal discharge with slight odor. Denies STD concerns. 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 History Comments: Sexual Activity: Yes; Male Contraception: No contraception data on record PAST MEDICAL HISTORY Diagnosis Date Acne Anemia Gestational diabetes mellitus, class A1 11/22/2019 Hx of preeclampsia, prior , currently 05/24/2021 May 29, 2021 ASA candidate Preeclampsia PAST SURGICAL HISTORY Procedure Laterality Date NONE FAMILY HISTORY Problem Relation Age of Onset No Known Problems Mother Hypertension Father No Known Problems Sister No Known Problems Sister Diabetes Maternal Grandmother Alzheimer's Disease Maternal Grandmother Hypertension Maternal Grandfather Leukemia Maternal Grandfather Heart Paternal Grandmother [place] Stroke Paternal Grandmother Heart Paternal Grandfather 48 Cancer Paternal Grandfather Skin other (Brain Tumor (Cancer)) Other Maternal Great Aunt No Known Problems Son Social History Tobacco Use Smoking status: Never Smokeless tobacco: Never Vaping Use Vaping Use: Never used Substance Use Topics Alcohol use: No Drug use: No Current Outpatient Medications Medication Sig Norethindrone, Contraceptive, (ORTHO MICRONOR) 0.35 mg tablet Take 1 tablet by mouth once daily. Cydysnbm-Yp-Efn-Fe-FA ( VITAMIN) tab Take 1 tablet by mouth. ferrous sulfate (IRON ORAL) Take by mouth. (Patient not taking: Reported on 03/05/2022) polyethylene glycol 3350 (MIRALAX ORAL) Take by mouth. (Patient not taking: Reported on 03/05/2022) No current facility-administered medications for this visit. Allergies As of Date: 03/05/2022 Allergen Noted Reaction SULFA (SULFONAMIDE ANTIBIOTICS) 04/19/2011 Hives Fully Assessed 03/05/2022 Allergies and current medication updated:Yes EXAM: BP 112/70 Wt 168 lb (76.2kg) LMP 04/06/2021 GENERAL: pleasant, female in no apparent distress PELVIC: external genitalia normal, normal Bartholin's glands, urethra, [place]'s glands, no vulvar lesions, no cervical lesions, good vaginal support, flores discharge present, normal appearing perineal body and perianal region ASSESSMENT AND PLAN: 31yo female with malodorous vaginal discharge Vaginitis swab sent Medical Decision Making: Problems: Low: Acute, uncomplicated illness or injury Data: Unique test(s) ordered: 2 Risk: Low: Low risk from testing/treatment Medical Decision Making Level: 3 - Low Alban Hooker MD documented in this encounterMet[facility]11-03-2022 History of Present illness Narrative* Kasey Yang MD - 02/14/2022 10:34 AM EDT [employer] Hostess offered: Patient declines. VISIT Herb Moran is a 31 year old year old here for visit. Delivery Summary: ROS/ Recovery: Feeding: Breast feeding problems: None Menses since delivery: light flow Menstrual pattern prior to : Regular periods [place] since delivery: Not resumed Depression: denies symptoms of depression. OB Depression and Anxiety Screening- This Encounter (since 02/13/2022) Over the past 2 weeks have you felt down, depressed, or hopeless? Negative Over the past two weeks, have you felt little interest or pleasure in doing things? Negative Feeling nervous, anxious or on edge 0-Not at all Not being able to stop or control worrying 0-Not al all Anxiety Pre-Screening Total (If >/= 3 additional questions will be reviewed) 0 Emotional support: Yes Bowel symptoms: Negative for abdominal discomfort, blood in stools or black stools, change in bowelhabit, heart burn, hematochezia, nausea, vomiting, Negative for abdominal discomfort, blood in stools or black stools, and change in bowel habits Abdomen: N/A Bladder symptoms: No dysuria, gross hematuria, urinary frequency, urinary urgency, or incontinence Other issues: None Last Pap: 2021 normal HPV: negative PAST MEDICAL HISTORY Diagnosis Date Acne Anemia Gestational diabetes mellitus, class A1 11/22/2019 Hx of preeclampsia, prior , currently 05/24/2021 May 29, 2021 ASA candidate Preeclampsia PAST SURGICAL HISTORY Procedure Laterality Date NONE FAMILY HISTORY Problem Relation Age of Onset No Known Problems Mother Hypertension Father No Known Problems Sister No Known Problems Sister Diabetes Maternal Grandmother Alzheimer's Disease Maternal Grandmother Hypertension Maternal Grandfather Leukemia Maternal Grandfather Heart Paternal Grandmother [place] Stroke Paternal Grandmother Heart Paternal Grandfather 48 Cancer Paternal Grandfather Skin other (Brain Tumor (Cancer)) Other Maternal Great Aunt No Known Problems Son Social History Tobacco Use Smoking status: Never Smokeless tobacco: Never Vaping Use Vaping Use: Never used Substance Use Topics Alcohol use: No Drug use: No PHYSICAL EXAMINATION: BP 118/70 Wt 165 lb (74.8kg) LMP 04/06/2021 GENERAL: pleasant, female in no apparent distress HEENT: Normocephalic, atraumatic, mucus membranes moist, and no lesions NECK: Supple, full range of motion, no adenopathy, and thyroid normal DERMATOLOGY: Normal, without lesions, non-icteric, and non-hirsute BREAST: soft, non-tender, symmetric, no dominant mass, normal nipple-areolar complex, no lymphadenopathy, and no nipple discharge ABDOMEN: soft, non-tender, and no masses. INCISION: N/A PELVIC: external genitalia normal, normal Bartholin's glands, urethra, [place]'s glands, no vulvar lesions, no cervical lesions, good vaginal support, physiologic discharge present, normal appearing perineal body and perianal region BIMANUAL: uterus normal size, shape and consistency, no adnexal masses, and non-tender NEURO: alert and oriented x3,exam grossly non-focal EXTREMITIES: normal ASSESSMENT AND PLAN: 31 year old status post with normal course. Contraception plan: Oral contraceptives Follow up: Prescription given per orders, RTC for annual exams and PRN Kasey Perez MD documented in this encounterMet[facility]10-06-2022 History of Present illness Narrative* Dante Waite MD - 01/17/2022 10:50 AM EDT EARLY VISIT Herb Moran is a 31 year old here for 1 week visit. Delivery Summary: ROS: General: Denies any fever or chills Hypertension Screening: Headache? mild AMAYA Visual Changes? No Epigastric Pain? No Increased Swelling? No Taking any BP medications at home? No If applicable, monitoring BP at home? (If Yes, include results) NA Mood: normal Depression: denies symptoms of depression. OB Depression and Anxiety Screening- This Encounter (since 01/16/2022) None Feeding: Breast feeding problems: None Bladder: No dysuria, gross hematuria, urinary frequency, urinary urgency, or incontinence Bowel symptoms: Negative for abdominal discomfort, blood in stools or black stools and change in bowel habits Abdomen: N/A some rash on trunk, raised, erythemetous. Non pruritic Bleeding: light flow Bottom and Perineum: No issues Sleep: no sleep concerns, feels rested [place] since delivery: Not resumed Emotional support: Yes Exercise: N/A Other issues: None PHYSICAL EXAMINATION: LMP 04/06/2021 (Exact Date) General: pleasant,female in no apparent distress, A&O x 3. Skin warm and intact. Breast: Deferred Abdomen: Deferred /Incision: N/A Pelvic: Deferred Bimanual: Deferred ASSESSMENT AND PLAN: 31 year old status post with normal course. Contraception plan: Oral contraceptives . Reinforced 6-week pelvic rest. Encouraged condom usage should patient deviate. Education: resources provided - see MA/RN note Follow up: Return to Clinic for 6 week visit and as needed Medical Decision Making Dante Waite MD documented in this encounterMetro[facility]09-24-2022 Hospital Discharge instructions Additional Instructions Date of Discharge: [facility]/22[facility] Work Phone: 1(636) 733-745609-23-2022 Miscellaneous Notes* Telephone Encounter - Itzel Santiago RN - 01/04/2022 4:41 PM EDT Patient delivered via by Dr. Waite on 01/04/22 at [facility]. See OB history. Itzel Santiago RN documented in this encounterMetrohealth [facility]09-20-2022 Miscellaneous Notes* Quick Notes - Dante Waite MD - 01/01/2022 12:03 PM EDT RR- No VB/LOF. Good FM. No regular ctxs. No AAMYA or visual changes. Abd- soft, nontender, gravid. Ext1+ edema, 2+ DTRs, no clonus. Recommend delivery at 39 weeks w/ h/o preeclampsia, BP trending up and GDMA12. R/B/A/P reviewed. She desires to proceed. Consent signed. Pelvis clinically adequate. Last growth US EFW 60%, AGA. Dante Waite MD documented in this encounterMetro[facility]09-20-2022 Instructions* Patient Instructions* Milana Quintana Sd - 01/01/2022 11:27 AM EDT SEQUENTIAL SCREENINGS The [facility] offers sequential screenings for women who are interested in screenings for chromosomal abnormalities and certain defects during a . The sequential screen combinesultrasound and blood tests to determine the risk of chromosomal abnormalities, including Down's Syndrome (Trisomy 21) and Trisomy 18, as well as open neural tube defects including spina bifida. Ultrasound examination is performed between 11 weeks and 13 weeks gestational age. Blood tests are drawn after the ultrasound and again later in the between 15 and 21 weeks gestational age. Please let your physician know if you are interested in this testing. It will require an appointment withour interactive video technician. This is not an ultrasound performed by a physician in our office during a routine visit. SIGNS AND SYMPTOMS OF LABOR 1. Contractions every 10 minutes or more often 2. Clear, pink, or brownish fluid (water) leaking from vagina 3. Feeling that baby is pushing down, pressure 4. Low, dull backache 5. Cramps that feel like a period 6. Cramps with or without diarrhea If you notice any of the above symptoms, contact our office at [phone] and ask to speak with anurse. After hours, you can call doctors registry at [phone] OR call [facility] at [phone] ask to have the doctor correctional supply supervisor paged. If you consider this an emergency, dial 9--1 or go to your nearest emergency department. NEED HELP? Are you dealing with a violent or abusive relationship? Are you a victim of rape or sexual assult? Call [facility] ([place]) 24 hour Crisis Hotline: 582.732.7937 or 608-974-4945. MANUAL Your Guide to a Healthy manual is now on-line. Visit [email or web address] to download your free copy documented in this encounterMetrohealth [facility]09-13-2022 Miscellaneous Notes* Quick Notes - Kasey Yang MD - 12/25/2021 9:34 AM EDT DM- Pt doing well today. Denies Vaginal Bleeding, Leaking fluid, or contractions. Pt reports good movement. BS log reviewed- well controlled. Continue with PO iron and ASA. Reviewed delivery at40 weeks- GDMA1 but otherwise low risk. Pt is agreeable to this. Kick counts and labor reviewed. Kasey Perez MD documented in this encounterMetrohealth [facility]09-13-2022 Instructions* Patient Instructions* Nevaeh Subramanian Ma - 12/25/2021 9:16 AM EDT SEQUENTIAL SCREENINGS The [facility] offers sequential screenings for women who are interested in screenings for chromosomal abnormalities and certain defects during a . The sequential screen combinesultrasound and blood tests to determine the risk of chromosomal abnormalities, including Down's Syndrome (Trisomy 21) and Trisomy 18, as well as open neural tube defects including spina bifida. Ultrasound examination is performed between 11 weeks and 13 weeks gestational age. Blood tests are drawn after the ultrasound and again later in the between 15 and 21 weeks gestational age. Please let your physician know if you are interested in this testing. It will require an appointment withour interactive video technician. This is not an ultrasound performed by a physician in our office during a routine visit. SIGNS AND SYMPTOMS OF LABOR 1. Contractions every 10 minutes or more often 2. Clear, pink, or brownish fluid (water) leaking from vagina 3. Feeling that baby is pushing down, pressure 4. Low, dull backache 5. Cramps that feel like a period 6. Cramps with or without diarrhea If you notice any of the above symptoms, contact our office at [phone] and ask to speak with anurse. After hours, you can call doctors registry at [phone] OR call [facility] at [phone] ask to have the doctor correctional supply supervisor paged. If you consider this an emergency, dial 9-1-1 or go to your nearest emergency department. NEED HELP? Are you dealing with a violent or abusive relationship? Are you a victim of rape or sexual assult? Call [facility] ([place]) 24 hour Crisis Hotline: 274.721.5240 or 786-731-0414. MANUAL Your Guide to a Healthy manual is now on-line. Visit [email or web address] to download your free copy documented in this encounterMetrohealth [facility]09-07-2022 Miscellaneous Notes* Quick Notes - Dante Waite MD - 12/19/2021 3:22 PM EDT RR- No VB/LOF. Good FM. BS log reviewed. Excellent control. Some increased pelvic pressure. Irreg ctxs. BP stable. No edema. Kick counts. F/u in 1 week. Taking iron. Dante Waite MD documented in this encounterMetrohealth [facility]09-07-2022 Instructions* Patient Instructions* Milana Quintana Ma - 12/19/2021 3:07 PM EDT SEQUENTIAL SCREENINGS The [facility] offers sequential screenings for women who are interested in screenings for chromosomal abnormalities and certain defects during a . The sequential screen combinesultrasound and blood tests to determine the risk of chromosomal abnormalities, including Down's Syndrome (Trisomy 21) and Trisomy 18, as well as open neural tube defects including spina bifida. Ultrasound examination is performed between 11 weeks and 13 weeks gestational age. Blood tests are drawn after the ultrasound and again later in the between 15 and 21 weeks gestational age. Please let your physician know if you are interested in this testing. It will require an appointment withour interactive video technician. This is not an ultrasound performed by a physician in our office during a routine visit. SIGNS AND SYMPTOMS OF LABOR 1. Contractions every 10 minutes or more often 2. Clear, pink, or brownish fluid (water) leaking from vagina 3. Feeling that baby is pushing down, pressure 4. Low, dull backache 5. Cramps that feel like a period 6. Cramps with or without diarrhea If you notice any of the above symptoms, contact our office at [phone] and ask to speak with anurse. After hours, you can call doctors registry at [phone] OR call [facility] at [phone] ask to have the doctor correctional supply supervisor paged. If you consider this an emergency, dial 7-0-7 or go to your nearest emergency department. NEED HELP? Are you dealing with a violent or abusive relationship? Are you a victim of rape or sexual assult? Call [facility] ([place]) 24 hour Crisis Hotline: 527.885.9708 or 010-658-2443. MANUAL Your Guide to a Healthy manual is now on-line. Visit [email or web address] to download your free copy documented in this encounterMetro[facility]09-01-2022 Miscellaneous Notes* Quick Notes - Dante Waite MD - 12/13/2021 11:59 AM EDT RR- VB No. LOF No. CTXS No. Movement: present. Other c/o: No. BS well controlled. BS log reviewed. Medication list reviewed. Physical Exam See Flow Sheet Abd: soft, nontender, gravid Ext: edema: Trace A/P 35w6d Estimated Date of Delivery: 01/11/22 Kick counts reviewed, AGA on US last week w/ normal AFV F/u in 1 week or prn cont. FE for anemia. . Dante Waite M.D. documented in this encounterMetrohealth [facility]09-01-2022 Instructions* Patient Instructions* Milana Quintana Ma - 12/13/2021 11:21 AM EDT SEQUENTIAL SCREENINGS The [facility] offers sequential screenings for women who are interested in screenings for chromosomal abnormalities and certain defects during a . The sequential screen combinesultrasound and blood tests to determine the risk of chromosomal abnormalities, including Down's Syndrome (Trisomy 21) and Trisomy 18, as well as open neural tube defects including spina bifida. Ultrasound examination is performed between 11 weeks and 13 weeks gestational age. Blood tests are drawn after the ultrasound and again later in the between 15 and 21 weeks gestational age. Please let your physician know if you are interested in this testing. It will require an appointment withour interactive video technician. This is not an ultrasound performed by a physician in our office during a routine visit. SIGNS AND SYMPTOMS OF LABOR 1. Contractions every 10 minutes or more often 2. Clear, pink, or brownish fluid (water) leaking from vagina 3. Feeling that baby is pushing down, pressure 4. Low, dull backache 5. Cramps that feel like a period 6. Cramps with or without diarrhea If you notice any of the above symptoms, contact our office at [phone] and ask to speak with anurse. After hours, you can call doctors registry at [phone] OR call [facility] at [phone] ask to have the doctor correctional supply supervisor paged. If you consider this an emergency, dial 9-1-3 or go to your nearest emergency department. NEED HELP? Are you dealing with a violent or abusive relationship? Are you a victim of rape or sexual assult? Call [facility] ([place]) 24 hour Crisis Hotline: 183.635.5351 or 967-982-0008. MANUAL Your Guide to a Healthy manual is now on-line. Visit [email or web address] to download your free copy documented in this encounterMetrohealth [facility]08-23-2022 History of Present illness Narrative* Sara Asencio MA - 12/04/2021 10:26 AM EDT Patient identified by name and date of . Herb Moran presents today for a vaccination of Tdap. Patient denies an allergy to latex: yes Patient denies a severe (life-threatening) allergy to a previous dose of Tdap, DTP, DTaP, DT or Td vaccine. Yes Patient denies history of epilepsy or neurological problems: Yes Patient is afebrile and denies being moderately or severely ill: Yes Patient denies history of Guillain-[place] Syndrome (a severe paralytic illness): Yes Tdap Adacel injection was given without incident. See immunizations for details of immunizations administered today. VIS sheet provided: Yes Provider Dante Waite MD was present in office at time of injection. Sara Asencio MA documented in this encounterMetrohealth [facility] Center08-23-2022 Miscellaneous Notes* Quick Notes - Dante Waite MD - 12/04/2021 10:19 AM EDT RR- Doing well overall. BS log reviewed. Excellent control. Continue to monitor. AGA w/ normal fluid today. H/o preeclampsia - bp stable. D/w her option of induction at 39+ weeks if she does not go into labor before then. Recommend induction at 40 weeks if not delivered. GBS next visit. TDAP today.Dante Waite MD documented in this encounterMetrohealth [facility]08-23-2022 Instructions* Patient Instructions* Milana Quintana Ma - 12/04/2021 9:50 AM EDT SEQUENTIAL SCREENINGS The [facility] offers sequential screenings for women who are interested in screenings for chromosomal abnormalities and certain defects during a . The sequential screen combinesultrasound and blood tests to determine the risk of chromosomal abnormalities, including Down's Syndrome (Trisomy 21) and Trisomy 18, as well as open neural tube defects including spina bifida. Ultrasound examination is performed between 11 weeks and 13 weeks gestational age. Blood tests are drawn after the ultrasound and again later in the between 15 and 21 weeks gestational age. Please let your physician know if you are interested in this testing. It will require an appointment withour interactive video technician. This is not an ultrasound performed by a physician in our office during a routine visit. SIGNS AND SYMPTOMS OF LABOR 1. Contractions every 10 minutes or more often 2. Clear, pink, or brownish fluid (water) leaking from vagina 3. Feeling that baby is pushing down, pressure 4. Low, dull backache 5. Cramps that feel like a period 6. Cramps with or without diarrhea If you notice any of the above symptoms, contact our office at [phone] and ask to speak with anurse. After hours, you can call doctors registry at [phone] OR call [facility] at [phone] ask to have the doctor correctional supply supervisor paged. If you consider this an emergency, dial 9-2-4 or go to your nearest emergency department. NEED HELP? Are you dealing with a violent or abusive relationship? Are you a victim of rape or sexual assult? Call [facility] ([place]) 24 hour Crisis Hotline: 984.162.5350 or 743-005-4238. MANUAL Your Guide to a Healthy manual is now on-line. Visit [email or web address] to download your free copy documented in this encounterMetrohealth [facility]08-09-2022 Miscellaneous Notes* Quick Notes - Dante Waite MD - 11/20/2021 10:20 AM EDT RR_ Doing well overall. G ood FM. BS log reviewed, excellent control, continue to monitor. Check USfor growth. C ont. progesterone injections until 36 weeks. kick counts. BPstable. Cont. PNV and Saul Waite MD documented in this encounterMetrohealth [facility]08-09-2022 Instructions* Patient Instructions* Milana Quintana Ma - 11/20/2021 9:49 AM EDT SEQUENTIAL SCREENINGS The [facility] offers sequential screenings for women who are interested in screenings for chromosomal abnormalities and certain defects during a . The sequential screen combinesultrasound and blood tests to determine the risk of chromosomal abnormalities, including Down's Syndrome (Trisomy 21) and Trisomy 18, as well as open neural tube defects including spina bifida. Ultrasound examination is performed between 11 weeks and 13 weeks gestational age. Blood tests are drawn after the ultrasound and again later in the between 15 and 21 weeks gestational age. Please let your physician know if you are interested in this testing. It will require an appointment withour interactive video technician. This is not an ultrasound performed by a physician in our office during a routine visit. SIGNS AND SYMPTOMS OF LABOR 1. Contractions every 10 minutes or more often 2. Clear, pink, or brownish fluid (water) leaking from vagina 3. Feeling that baby is pushing down, pressure 4. Low, dull backache 5. Cramps that feel like a period 6. Cramps with or without diarrhea If you notice any of the above symptoms, contact our office at [phone] and ask to speak with anurse. After hours, you can call doctors registry at [phone] OR call [facility] at [phone] ask to have the doctor correctional supply supervisor paged. If you consider this an emergency, dial 6-3-4 or go to your nearest emergency department. NEED HELP? Are you dealing with a violent or abusive relationship? Are you a victim of rape or sexual assult? Call [facility] ([place]) 24 hour Crisis Hotline: 621.475.9852 or 784-083-7347. MANUAL Your Guide to a Healthy manual is now on-line. Visit [email or web address] to download your free copy documented in this encounterMetrohealth [facility]07-27-2022 Miscellaneous Notes* Quick Notes - Dante Waite MD - 11/07/2021 1:32 PM EDT RR- Good FM. No VB/LOF. BS log reviewed, excellent control and fastings within target now. Cont. ASA for preeclampsia prevention. Dante Waite MD documented in this encounterMetrohealth [facility] Center07-27-2022 Instructions* Patient Instructions* Milana Quintana Ma - 11/07/2021 1:23 PM EDT SEQUENTIAL SCREENINGS The [facility] offers sequential screenings for women who are interested in screenings for chromosomal abnormalities and certain defects during a . The sequential screen combinesultrasound and blood tests to determine the risk of chromosomal abnormalities, including Down's Syndrome (Trisomy 21) and Trisomy 18, as well as open neural tube defects including spina bifida. Ultrasound examination is performed between 11 weeks and 13 weeks gestational age. Blood tests are drawn after the ultrasound and again later in the between 15 and 21 weeks gestational age. Please let your physician know if you are interested in this testing. It will require an appointment withour interactive video technician. This is not an ultrasound performed by a physician in our office during a routine visit. SIGNS AND SYMPTOMS OF LABOR 1. Contractions every 10 minutes or more often 2. Clear, pink, or brownish fluid (water) leaking from vagina 3. Feeling that baby is pushing down, pressure 4. Low, dull backache 5. Cramps that feel like a period 6. Cramps with or without diarrhea If you notice any of the above symptoms, contact our office at [phone] and ask to speak with anurse. After hours, you can call [facility] at [phone] OR call [facility] at [phone] ask to have the doctor correctional supply supervisor paged. If you consider this an emergency, dial 8-2-6 or go to your nearest emergency department. NEED HELP? Are you dealing with a violent or abusive relationship? Are you a victim of rape or sexual assult? Call [facility] ([facility] 24 hour Crisis Hotline: 251.850.5873 or 411-530-9308. MANUAL Your Guide to a Healthy manual is now on-line. Visit [email or web address] to download your free copy documented in this encounterCleveland [id number] Miscellaneous Notes* Telephone Encounter - Zahira Torres APRN.CNM - 11/01/2021 4:11 PM EDT Rx signed. Zahira Torres APRN.CNM * Telephone Encounter - Adelaide Altamirano RN - 11/01/2021 3:59 PM EDT Refill request received via [employer] for patients blood sugar testing strips. Patient 29w6d. Please file pended order. Adelaide Altamirano RN documented in this encounterMetrohealth [facility]07-06-2022 Miscellaneous Notes* Telephone Encounter - Mare Larios RN - 10/17/2021 4:00 PM EDT Patient notified. Reviewed checking BS four times a day- fasting and 2 hr PP. Declined all teachingat this time. Reminded to keep a log and bring to each OB visit. Kept all her previous education materials. Patient has a glucometer. Will need testing strips for One Touch Ultra 2 and lancets. Prescriptions pending. Pharmacy updated. Mare Larios RN * Telephone Encounter - Mare Larios RN - 10/17/2021 3:52 PM EDT ----- Message from Dante Waite MD sent at 10/17/2021 3:32 PM EDT ----- GDM- see what supplies she needs. Offer teaching. Thanks. Dante Waite MD documented in this encounterMetrohealth [facility]06-30-2022 Miscellaneous Notes* Telephone Encounter - Kaila Pruitt LPN - 10/11/2021 8:46 AM EDT FMLA paperwork completed and faxed to employer, scanned into EMR and filed in [employer] suite. Kaila Pruitt LPN * Telephone Encounter - Kaila Pruitt LPN - 10/09/2021 12:27 PM EDT [place] paperwork received and completed,placed on providers desk for signature. Kaila Pruitt LPN documented in this encounterMetrohealth [facility] Center06-28-2022 History of Past illness Narrative* Problem Noted Date Resolved Date Anemia during in second trimester 09/1301/17/2022 Supervision of other high risk pregnancies, firs t trimester 05/29/2021 01/17/2022 Overview: Declines quill winder at delivery. History of gestational diabe kesha in prior , currently 05/24/2021 10/17/2021 Overview: October 09, 2021 abnormal 1 hr, 3hr ordered. Dante Waite MD 05/24/2021 Patient has a history of gestational diabetes that was diet controlled with her last . Will plan on early screening with hemoglobin A1c. TKRN Hx of preeclampsia, prior , currently p regnant 05/24/2021 01/17/2022 Overview: May 29, 2021 ASA candidate History of delivery, currently 05/24/2021 01/17/2022 Overview: 05/24/2021 Patient has a history of delivery at 36 weeks 1 day. Discussed [place]. Patient is asked to watch the video prior to her appointment with Dr. Waite May 29. TKRN Gestational diabetes mellitus, class A1 11/22/1901/17/2022 Abnormal glucose in , antepartum 201905/29/2021 Overview: 11/16/19: 3hr gtt ordered. Kasey Perez MD Acne 04/19/2011 01/17/2022 documented as of this encounter (statuses as of 01/17/2022) [facility] History of Past illness Narrative* Problem Noted Date Resolved Date Anemia during in second trimester 09/1301/17/2022 Supervision of other high risk pregnancies, firs t trimester 05/29/2021 01/17/2022 Overview: Declines quill winder at delivery. History of gestational diabe kesha in prior , currently 05/24/2021 10/17/2021 Overview: October 09, 2021 abnormal 1 hr, 3hr ordered. Dante Waite MD 05/24/2021 Patient has a history of gestational diabetes that was diet controlled with her last . Will plan on early screening with hemoglobin A1c. TKRN Hx of preeclampsia, prior , currently p regnant 05/24/2021 01/17/2022 Overview: May 29, 2021 ASA candidate History of delivery, currently 05/24/2021 01/17/2022 Overview: 05/24/2021 Patient has a history of delivery at 36 weeks 1 day. Discussed [place]. Patient is asked to watch the video prior to her appointment with Dr. Waite May 29. TKRN Gestational diabetes mellitus, class A1 11/22/1901/17/2022 Abnormal glucose in , antepartum 201905/29/2021 Overview: 11/16/19: 3hr gtt ordered. Kasey Perez MD Acne 04/19/2011 01/17/2022 documented as of this encounter (statuses as of 02/14/2022) [facility] History of Past illness Narrative* Problem Noted Date Resolved Date Anemia during in second trimester 09/1301/17/2022 Supervision of other high risk pregnancies, firs t trimester 05/29/2021 01/17/2022 Overview: Declines quill winder at delivery. History of gestational diabe kesha in prior , currently 05/24/2021 10/17/2021 Overview: October 09, 2021 abnormal 1 hr, 3hr ordered. Dante Waite MD 05/24/2021 Patient has a history of gestational diabetes that was diet controlled with her last . Will plan on early screening with hemoglobin A1c. TKRN Hx of preeclampsia, prior , currently p regnant 05/24/2021 01/17/2022 Overview: May 29, 2021 ASA candidate History of delivery, currently 05/24/2021 01/17/2022 Overview: 05/24/2021 Patient has a history of delivery at 36 weeks 1 day. Discussed [place]. Patient is asked to watch the video prior to her appointment with Dr. Waite May 29. TKRN Gestational diabetes mellitus, class A1 11/22/1901/17/2022 Abnormal glucose in , antepartum 201905/29/2021 Overview: 11/16/19: 3hr gtt ordered. Kasey Perez MD Acne 04/19/2011 01/17/2022 documented as of this encounter (statuses as of 03/05/2022) [facility] History of Past illness Narrative* Problem Noted Date Resolved Date Anemia during in second trimester 09/1301/17/2022 Supervision of other high risk pregnancies, firs t trimester 05/29/2021 01/17/2022 Overview: Declines quill winder at delivery. History of gestational diabe kesha in prior , currently 05/24/2021 10/17/2021 Overview: October 09, 2021 abnormal 1 hr, 3hr ordered. Dante Waite MD 05/24/2021 Patient has a history of gestational diabetes that was diet controlled with her last . Will plan on early screening with hemoglobin A1c. TKRN Hx of preeclampsia, prior , currently p regnant 05/24/2021 01/17/2022 Overview: May 29, 2021 ASA candidate History of delivery, currently 05/24/2021 01/17/2022 Overview: 05/24/2021 Patient has a history of delivery at 36 weeks 1 day. Discussed [place]. Patient is asked to watch the video prior to her appointment with Dr. Waite May 29. TKRN Gestational diabetes mellitus, class A1 11/22/1901/17/2022 Abnormal glucose in , antepartum 201905/29/2021 Overview: 11/16/19: 3hr gtt ordered. Kasey Perez MD Acne 04/19/2011 01/17/2022 documented as of this encounter (statuses as of 03/05/2022) [facility] History of Past illness Narrative* Problem Noted Date Resolved Date Anemia during in second trimester 09/1301/17/2022 Supervision of other high risk pregnancies, firs t trimester 05/29/2021 01/17/2022 Overview: Declines quill winder at delivery. History of gestational diabe kesha in prior , currently 05/24/2021 10/17/2021 Overview: October 09, 2021 abnormal 1 hr, 3hr ordered. Dante Waite MD 05/24/2021 Patient has a history of gestational diabetes that was diet controlled with her last . Will plan on early screening with hemoglobin A1c. TKRN Hx of preeclampsia, prior , currently p regnant 05/24/2021 01/17/2022 Overview: May 29, 2021 ASA candidate History of delivery, currently 05/24/2021 01/17/2022 Overview: 05/24/2021 Patient has a history of delivery at 36 weeks 1 day. Discussed [place]. Patient is asked to watch the video prior to her appointment with Dr. Waite May 29. TKRN Gestational diabetes mellitus, class A1 11/22/1901/17/2022 Abnormal glucose in , antepartum 201905/29/2021 Overview: 11/16/19: 3hr gtt ordered. Kasey Perez MD Acne 04/19/2011 01/17/2022 documented as of this encounter (statuses as of 03/06/2022) [facility] of Past illness Narrative* Problem Noted Date Resolved Date Anemia during in second trimester 09/1301/17/2022 Supervision of other high risk pregnancies, firs t trimester 05/29/2021 01/17/2022 Overview: Declines quill winder at delivery. History of gestational diabe kesha in prior , currently 05/24/2021 10/17/2021 Overview: October 09, 2021 abnormal 1 hr, 3hr ordered. Dante Waite MD 05/24/2021 Patient has a history of gestational diabetes that was diet controlled with her last . Will plan on early screening with hemoglobin A1c. TKRN Hx of preeclampsia, prior , currently p regnant 05/24/2021 01/17/2022 Overview: May 29, 2021 ASA candidate History of delivery, currently 05/24/2021 01/17/2022 Overview: 05/24/2021 Patient has a history of delivery at 36 weeks 1 day. Discussed [place]. Patient is asked to watch the video prior to her appointment with Dr. Waite May 29. TKRN Gestational diabetes mellitus, class A1 11/22/1901/17/2022 Abnormal glucose in , antepartum 201905/29/2021 Overview: 11/16/19: 3hr gtt ordered. Kasey Perez MD Acne 04/19/2011 01/17/2022 documented as of this encounter (statuses as of 03/08/2022) [facility] of Past illness Narrative* Problem Noted Date Resolved Date Anemia during in second trimester 09/1301/17/2022 Supervision of other high risk pregnancies, firs t trimester 05/29/2021 01/17/2022 Overview: Declines quill winder at delivery. History of gestational diabe kesha in prior , currently 05/24/2021 10/17/2021 Overview: October 09, 2021 abnormal 1 hr, 3hr ordered. Dante Waite MD 05/24/2021 Patient has a history of gestational diabetes that was diet controlled with her last . Will plan on early screening with hemoglobin A1c. TKRN Hx of preeclampsia, prior , currently p regnant 05/24/2021 01/17/2022 Overview: May 29, 2021 ASA candidate History of delivery, currently 05/24/2021 01/17/2022 Overview: 05/24/2021 Patient has a history of delivery at 36 weeks 1 day. Discussed [place]. Patient is asked to watch the video prior to her appointment with Dr. Waite May 29. TKRN Gestational diabetes mellitus, class A1 11/22/1901/17/2022 Abnormal glucose in , antepartum 201905/29/2021 Overview: 11/16/19: 3hr gtt ordered. Kasey Perez MD Acne 04/19/2011 01/17/2022 documented as of this encounter (statuses as of 07/04/2022) [facility] of Past illness Narrative* Problem Noted Date Resolved Date Anemia during in second trimester 09/1301/17/2022 Supervision of other high risk pregnancies, firs t trimester 05/29/2021 01/17/2022 Overview: Declines quill winder at delivery. History of gestational diabe kesha in prior , currently 05/24/2021 10/17/2021 Overview: October 09, 2021 abnormal 1 hr, 3hr ordered. Dante Waite MD 05/24/2021 Patient has a history of gestational diabetes that was diet controlled with her last . Will plan on early screening with hemoglobin A1c. TKRN Hx of preeclampsia, prior , currently p regnant 05/24/2021 01/17/2022 Overview: May 29, 2021 ASA candidate History of delivery, currently 05/24/2021 01/17/2022 Overview: 05/24/2021 Patient has a history of delivery at 36 weeks 1 day. Discussed [place]. Patient is asked to watch the video prior to her appointment with Dr. Waite May 29. TKRN Gestational diabetes mellitus, class A1 11/22/1901/17/2022 Abnormal glucose in , antepartum 201905/29/2021 Overview: 11/16/19: 3hr gtt ordered. Kasey Perez MD Acne 04/19/2011 01/17/2022 documented as of this encounter (statuses as of 07/29/2022) [facility] History of Past illness Narrative* Problem Noted Date Resolved Date Anemia during in second trimester 09/1301/17/2022 Supervision of other high risk pregnancies, firs t trimester 05/29/2021 01/17/2022 Overview: Declines quill winder at delivery. History of gestational diabe kesha in prior , currently 05/24/2021 10/17/2021 Overview: October 09, 2021 abnormal 1 hr, 3hr ordered. Dante Waite MD 05/24/2021 Patient has a history of gestational diabetes that was diet controlled with her last . Will plan on early screening with hemoglobin A1c. TKRN Hx of preeclampsia, prior , currently p regnant 05/24/2021 01/17/2022 Overview: May 29, 2021 ASA candidate History of delivery, currently 05/24/2021 01/17/2022 Overview: 05/24/2021 Patient has a history of delivery at 36 weeks 1 day. Discussed [place]. Patient is asked to watch the video prior to her appointment with Dr. Waite May 29. TKRN Gestational diabetes mellitus, class A1 11/22/1901/17/2022 Abnormal glucose in , antepartum 201905/29/2021 Overview: 11/16/19: 3hr gtt ordered. Kasey Perez MD Acne 04/19/2011 01/17/2022 documented as of this encounter (statuses as of 08/06/2022) [facility] History of Past illness Narrative* Problem Noted Date Resolved Date Anemia during in second trimester 09/1301/17/2022 Supervision of other high risk pregnancies, firs t trimester 05/29/2021 01/17/2022 Overview: Declines quill winder at delivery. History of gestational diabe kesha in prior , currently 05/24/2021 10/17/2021 Overview: October 09, 2021 abnormal 1 hr, 3hr ordered. Dante Waite MD 05/24/2021 Patient has a history of gestational diabetes that was diet controlled with her last . Will plan on early screening with hemoglobin A1c. TKRN Hx of preeclampsia, prior , currently p regnant 05/24/2021 01/17/2022 Overview: May 29, 2021 ASA candidate History of delivery, currently 05/24/2021 01/17/2022 Overview: 05/24/2021 Patient has a history of delivery at 36 weeks 1 day. Discussed [place]. Patient is asked to watch the video prior to her appointment with Dr. Waite May 29. TKRN Gestational diabetes mellitus, class A1 11/22/1901/17/2022 Abnormal glucose in , antepartum 201905/29/2021 Overview: 11/16/19: 3hr gtt ordered. Kasey Perez MD Acne 04/19/2011 01/17/2022 documented as of this encounter (statuses as of 09/16/2022) [facility] History of Past illness Narrative* Problem Noted Date Diagnosed Date Resolved Date Anemia during in second trimester 10/09/2021 01/17/2022 Supervision of other high ri sk pregnancies, first trimester 05/29/2021 01/17/2022 Overview: Declines quill winder at delivery. History of gestational diabe kesha in prior , currently 05/24/2021 10/17/2021 Overview: October 09, 2021 abnormal 1 hr, 3hr ordered. Dante Waite MD 05/24/2021 Patient has a history of gestational diabetes that was diet controlled with her last . Will plan on early screening with hemoglobin A1c. TKRN Hx of preeclampsia, prior pr egnancy, currently 05/24/2021 01/17/2022 Overview: May 29, 2021 ASA candidate History of delivery, currently 05/24/2021 01/17/2022 Overview: 05/24/2021 Patient has a history of delivery at 36 weeks 1 day. Discussed [place]. Patient is asked to watch the video prior to her appointment with Dr. Waite May 29. TKRN Gestational diabetes mellitus, class A1 11/22/2019 01/17/2022 Abnormal glucose in , antepartum 11/16/2019 05/29/2021 Overview: 11/16/19: 3hr gtt ordered. Kasey Perez MD Acne 04/19/2011 01/17/2022 documented as of this encounter (statuses as of 03/07/2023) [facility] History of Past illness Narrative* Problem Noted Date Diagnosed Date Resolved Date Anemia during in second trimester 10/09/2021 01/17/2022 Supervision of other high ri sk pregnancies, first trimester 05/29/2021 01/17/2022 Overview: Declines quill winder at delivery. History of gestational diabe kesha in prior , currently 05/24/2021 10/17/2021 Overview: October 09, 2021 abnormal 1 hr, 3hr ordered. Dante Waite MD 05/24/2021 Patient has a history of gestational diabetes that was diet controlled with her last . Will plan on early screening with hemoglobin A1c. TKRN Hx of preeclampsia, prior pr egnancy, currently 05/24/2021 01/17/2022 Overview: May 29, 2021 ASA candidate History of delivery, currently 05/24/2021 01/17/2022 Overview: 05/24/2021 Patient has a history of delivery at 36 weeks 1 day. Discussed [place]. Patient is asked to watch the video prior to her appointment with Dr. Waite May 29. TKRN Gestational diabetes mellitus, class A1 11/22/2019 01/17/2022 Abnormal glucose in , antepartum 11/16/2019 05/29/2021 Overview: 11/16/19: 3hr gtt ordered. Kasey Perez MD Acne 04/19/2011 01/17/2022 documented as of this encounter (statuses as of 03/11/2023) [facility] History of Past illness Narrative* Problem Noted Date Diagnosed Date Resolved Date Anemia during in second trimester 10/09/2021 01/17/2022 Supervision of other high ri sk pregnancies, first trimester 05/29/2021 01/17/2022 Overview: Declines quill winder at delivery. History of gestational diabe kesha in prior , currently 05/24/2021 10/17/2021 Overview: October 09, 2021 abnormal 1 hr, 3hr ordered. Dante Waite MD 05/24/2021 Patient has a history of gestational diabetes that was diet controlled with her last . Will plan on early screening with hemoglobin A1c. TKRN Hx of preeclampsia, prior pr egnancy, currently 05/24/2021 01/17/2022 Overview: May 29, 2021 ASA candidate History of delivery, currently 05/24/2021 01/17/2022 Overview: 05/24/2021 Patient has a history of delivery at 36 weeks 1 day. Discussed [place]. Patient is asked to watch the video prior to her appointment with Dr. Waite May 29. TKRN Gestational diabetes mellitus, class A1 11/22/2019 01/17/2022 Abnormal glucose in , antepartum 11/16/2019 05/29/2021 Overview: 11/16/19: 3hr gtt ordered. Kasey Perez MD Acne 04/19/2011 01/17/2022 documented as of this encounter (statuses as of 07/07/2023) [facility] Miscellaneous Notes* Telephone Encounter - Itzel Santiago RN - 10/09/2021 1:37 PM EDT Patient notified and scheduled. Itzel Santiago RN * Telephone Encounter - Dante Waite MD - 10/09/2021 12:47 PM EDT thanks * Telephone Encounter - Itzel Santiago RN - 10/09/2021 12:25 PM EDT Please file order and we will then notify patient. Itzel Santiago RN * Telephone Encounter - Itzel Santiago RN - 10/09/2021 12:25 PM EDT ----- Message from Dante Waite MD sent at 10/09/2021 12:18 PM EDT ----- needs 3 hr and start fe. documented in this encounter[facility] Miscellaneous Notes* Quick Notes - Dante Waite MD - 10/09/2021 10:38 AM EDT RR_ No VB/LOF. Good FM. 28 week labs today. Plans OCPs for contraception. TDAP next visit. Planningcovid booster. Declines LARC at delivery. Plans . F/u in 2-3 weeks or prn. Dante Waite MD documented in this encounterMet[facility] Instructions* Patient Instructions* Milana Quintana Ma - 10/09/2021 9:58 AM EDT SEQUENTIAL SCREENINGS The [facility] offers sequential screenings for women who are interested in screenings for chromosomal abnormalities and certain defects during a . The sequential screen combinesultrasound and blood tests to determine the risk of chromosomal abnormalities, including Down's Syndrome (Trisomy 21) and Trisomy 18, as well as open neural tube defects including spina bifida. Ultrasound examination is performed between 11 weeks and 13 weeks gestational age. Blood tests are drawn after the ultrasound and again later in the between 15 and 21 weeks gestational age. Please let your physician know if you are interested in this testing. It will require an appointment withour interactive video technician. This is not an ultrasound performed by a physician in our office during a routine visit. SIGNS AND SYMPTOMS OF LABOR 1. Contractions every 10 minutes or more often 2. Clear, pink, or brownish fluid (water) leaking from vagina 3. Feeling that baby is pushing down, pressure 4. Low, dull backache 5. Cramps that feel like a period 6. Cramps with or without diarrhea If you notice any of the above symptoms, contact our office at [phone] and ask to speak with anurse. After hours, you can call doctors registry at [phone] OR call [facility] at [phone] ask to have the doctor correctional supply supervisor paged. If you consider this an emergency, dial 9--6 or go to your nearest emergency department. NEED HELP? Are you dealing with a violent or abusive relationship? Are you a victim of rape or sexual assult? Call [facility] ([place]) 24 hour Crisis Hotline: 165.390.6054 or 680-513-6029. MANUAL Your Guide to a Healthy manual is now on-line. Visit [email or web address] to download your free copy documented in this encounterMet[facility] Miscellaneous Notes* Quick Notes - Dante Waite MD - 09/11/2021 10:02 AM EDT RR- No VB/LOF. Good FM. On ASA and progesterone. Some constipation but miralax every other day helps F/u in 4 weeks or prn. 28 week albs next visit. Dante Waite MD documented in this encounterMet[facility] Instructions* Patient Instructions* Milana Quintana Ma - 09/11/2021 9:37 AM EDT SEQUENTIAL SCREENINGS The [facility] offers sequential screenings for women who are interested in screenings for chromosomal abnormalities and certain defects during a . The sequential screen combinesultrasound and blood tests to determine the risk of chromosomal abnormalities, including Down's Syndrome (Trisomy 21) and Trisomy 18, as well as open neural tube defects including spina bifida. Ultrasound examination is performed between 11 weeks and 13 weeks gestational age. Blood tests are drawn after the ultrasound and again later in the between 15 and 21 weeks gestational age. Please let your physician know if you are interested in this testing. It will require an appointment withour interactive video technician. This is not an ultrasound performed by a physician in our office during a routine visit. SIGNS AND SYMPTOMS OF LABOR 1. Contractions every 10 minutes or more often 2. Clear, pink, or brownish fluid (water) leaking from vagina 3. Feeling that baby is pushing down, pressure 4. Low, dull backache 5. Cramps that feel like a period 6. Cramps with or without diarrhea If you notice any of the above symptoms, contact our office at [phone] and ask to speak with anurse. After hours, you can call doctors registry at [phone] OR call [facility] at [phone] ask to have the doctor correctional supply supervisor paged. If you consider this an emergency, dial 9--1 or go to your nearest emergency department. NEED HELP? Are you dealing with a violent or abusive relationship? Are you a victim of rape or sexual assult? Call [facility] ([place]) 24 hour Crisis Hotline: 657.125.1329 or 791-060-4071. MANUAL Your Guide to a Healthy manual is now on-line. Visit [email or web address] to download your free copy documented in this encounterMet[facility] Miscellaneous Notes* Telephone Encounter - Dante Waite MD - 08/17/2021 10:45 AM EDT filed. Thanks. Dante Waite MD * Telephone Encounter - Mare Larios RN - 08/17/2021 10:23 AM EDT 19w0d Patient seen in office today for Progesterone education and administration. Please file pending CAMorder. Thank you. Mare Larios RN documented in this encounterMet[facility] History of Present illness Narrative* Mare Larios RN - 08/17/2021 9:56 AM EDT Herb Moran is a 31 year old Gestational Age: 19 weeks female who presents for an injection of Hydroxy Progesterone. The patient brought the medication into the office to be injected in the office. Education was provided to and patient for at home administration. All questions answered. Handouts given. Dose: 250mg/ml Optical Scientist: Amneal Lot #: [id number] Expiration Date: 07/2022 Site: right upper quadrant gluteus Verified by GISSELLE Cao The date of the last injection was today The date due for the next injection is one week Provider Dante Waite MD was present in office at time of injection Mare Larios RN documented in this encounterMet[facility] Miscellaneous Notes* Quick Notes - Dante Waite MD - 08/13/2021 9:51 AM EDT RR_ No VB/LOF. Some flutters. Anatomy US today. Havnig a lot of sinus issues. Trial of claritin or other meds. Taking ASA and PNV. Started progesterone injections and now hasn't gotten another rx butwill call pharmacy.Normal cervical length> Follow up in 4 weeks or prn. Dante Waite MD documented in this encounterMet[facility] Instructions* Patient Instructions* Mary Bonilla Ma - 08/13/2021 9:35 AM EDT SEQUENTIAL SCREENINGS The [facility] offers sequential screenings for women who are interested in screenings for chromosomal abnormalities and certain defects during a . The sequential screen combinesultrasound and blood tests to determine the risk of chromosomal abnormalities, including Down's Syndrome (Trisomy 21) and Trisomy 18, as well as open neural tube defects including spina bifida. Ultrasound examination is performed between 11 weeks and 13 weeks gestational age. Blood tests are drawn after the ultrasound and again later in the between 15 and 21 weeks gestational age. Please let your physician know if you are interested in this testing. It will require an appointment withour interactive video technician. This is not an ultrasound performed by a physician in our office during a routine visit. SIGNS AND SYMPTOMS OF LABOR 1. Contractions every 10 minutes or more often 2. Clear, pink, or brownish fluid (water) leaking from vagina 3. Feeling that baby is pushing down, pressure 4. Low, dull backache 5. Cramps that feel like a period 6. Cramps with or without diarrhea If you notice any of the above symptoms, contact our office at [phone] and ask to speak with anurse. After hours, you can call doctors registry at [phone] OR call [facility] at [phone] ask to have the doctor correctional supply supervisor paged. If you consider this an emergency, dial 9-1-8 or go to your nearest emergency department. NEED HELP? Are you dealing with a violent or abusive relationship? Are you a victim of rape or sexual assult? Call [facility] ([place]) 24 hour Crisis Hotline: 162.444.1272 or 207-499-6823. MANUAL Your Guide to a Healthy manual is now on-line. Visit [email or web address] to download your free copy documented in this encounterMet[facility]04[facility] Miscellaneous Notes* Telephone Encounter - Adelaide Altamirano RN - 08/07/2021 8:41 AM EDT Patient still has not received her shipment. Can you check into this? Adelaide Altamirano RN documented in this encounterMet[facility]04-[facility]22 Miscellaneous Notes* Quick Notes - Dante Waite MD - 07/20/2021 10:05 AM EDT RR- No VB/LOF. No flutters yet. Anatomy uS scheduled. On ASA and taking PNV. Dante Waite MD documented in this encounterMet[facility]04[facility]-2022 Instructions* Patient Instructions* Milana Quintana Ma - 07/20/2021 9:38 AM EDT SEQUENTIAL SCREENINGS The [facility] offers sequential screenings for women who are interested in screenings for chromosomal abnormalities and certain defects during a . The sequential screen combinesultrasound and blood tests to determine the risk of chromosomal abnormalities, including Down's Syndrome (Trisomy 21) and Trisomy 18, as well as open neural tube defects including spina bifida. Ultrasound examination is performed between 11 weeks and 13 weeks gestational age. Blood tests are drawn after the ultrasound and again later in the between 15 and 21 weeks gestational age. Please let your physician know if you are interested in this testing. It will require an appointment withour interactive video technician. This is not an ultrasound performed by a physician in our office during a routine visit. SIGNS AND SYMPTOMS OF LABOR 1. Contractions every 10 minutes or more often 2. Clear, pink, or brownish fluid (water) leaking from vagina 3. Feeling that baby is pushing down, pressure 4. Low, dull backache 5. Cramps that feel like a period 6. Cramps with or without diarrhea If you notice any of the above symptoms, contact our office at [phone] and ask to speak with anurse. After hours, you can call doctors registry at [phone] OR call [facility] at [phone] ask to have the doctor correctional supply supervisor paged. If you consider this an emergency, dial 9-1-0 or go to your nearest emergency department. NEED HELP? Are you dealing with a violent or abusive relationship? Are you a victim of rape or sexual assult? Call [facility] ([facility] 24 hour Crisis Hotline: 343.923.6098 or 015-058-6447. MANUAL Your Guide to a Healthy manual is now on-line. Visit [email or web address] to download your free copy documented in this encounterMetro[facility]04[facility]22 Miscellaneous Notes* Telephone Encounter - Isatu Zamora RN - 07/17/2021 9:40 AM EDT Form faxed * Telephone Encounter - Isatu Zamora RN - 07/17/2021 8:05 AM EDT Received [employer] form for Linda for Dr Narinder guerra. Please fax to number on front of form after signature is obtained documented in this encounterMetro[facility] History of Past illness Narrative* Problem Noted Date Resolved Date History of gestational diabe kesha in prior , currently 05/24/2021 10/17/2021 Overview: October 09, 2021 abnormal 1 hr, 3hr ordered. Dante Waite MD 05/24/2021 Patient has a history of gestational diabetes that was diet controlled with her last . Will plan on early screening with hemoglobin A1c. TKRN Abnormal glucose in , antepartum 201905/29/2021 Overview: 11/16/19: 3hr gtt ordered. Kasey Perez MD documented as of this encounter (statuses as of 10/17/2021) [facility] History of Past illness Narrative* Problem Noted Date Resolved Date History of gestational diabe kesha in prior , currently 05/24/2021 10/17/2021 Overview: October 09, 2021 abnormal 1 hr, 3hr ordered. Dante Waite MD 05/24/2021 Patient has a history of gestational diabetes that was diet controlled with her last . Will plan on early screening with hemoglobin A1c. TKRN Abnormal glucose in , antepartum 201905/29/2021 Overview: 11/16/19: 3hr gtt ordered. Kasey Perez MD documented as of this encounter (statuses as of 11/01/2021) [facility] History of Past illness Narrative* Problem Noted Date Resolved Date History of gestational diabe kesha in prior , currently 05/24/2021 10/17/2021 Overview: October 09, 2021 abnormal 1 hr, 3hr ordered. Dante Waite MD 05/24/2021 Patient has a history of gestational diabetes that was diet controlled with her last . Will plan on early screening with hemoglobin A1c. TKRN Abnormal glucose in , antepartum 201905/29/2021 Overview: 11/16/19: 3hr gtt ordered. Kasey Perez MD documented as of this encounter (statuses as of 11/07/2021) [facility] History of Past illness Narrative* Problem Noted Date Resolved Date History of gestational diabe kesha in prior , currently 05/24/2021 10/17/2021 Overview: October 09, 2021 abnormal 1 hr, 3hr ordered. Dante Waite MD 05/24/2021 Patient has a history of gestational diabetes that was diet controlled with her last . Will plan on early screening with hemoglobin A1c. TKRN Abnormal glucose in , antepartum 201905/29/2021 Overview: 11/16/19: 3hr gtt ordered. Kasey Perez MD documented as of this encounter (statuses as of 11/20/2021) [facility] History of Past illness Narrative* Problem Noted Date Resolved Date History of gestational diabe kesha in prior , currently 05/24/2021 10/17/2021 Overview: October 09, 2021 abnormal 1 hr, 3hr ordered. Dante Waite MD 05/24/2021 Patient has a history of gestational diabetes that was diet controlled with her last . Will plan on early screening with hemoglobin A1c. TKRN Abnormal glucose in , antepartum 201905/29/2021 Overview: 11/16/19: 3hr gtt ordered. Kasey Perez MD documented as of this encounter (statuses as of 12/04/2021) [facility] History of Past illness Narrative* Problem Noted Date Resolved Date History of gestational diabe kesha in prior , currently 05/24/2021 10/17/2021 Overview: October 09, 2021 abnormal 1 hr, 3hr ordered. Dante Waite MD 05/24/2021 Patient has a history of gestational diabetes that was diet controlled with her last . Will plan on early screening with hemoglobin A1c. TKRN Abnormal glucose in , antepartum 201905/29/2021 Overview: 11/16/19: 3hr gtt ordered. Kasey Perez MD documented as of this encounter (statuses as of 12/04/2021) [facility] of Past illness Narrative* Problem Noted Date Resolved Date History of gestational diabe kesha in prior , currently 05/24/2021 10/17/2021 Overview: October 09, 2021 abnormal 1 hr, 3hr ordered. Dante Waite MD 05/24/2021 Patient has a history of gestational diabetes that was diet controlled with her last . Will plan on early screening with hemoglobin A1c. TKRN Abnormal glucose in , antepartum 201905/29/2021 Overview: 11/16/19: 3hr gtt ordered. Kasey Perez MD documented as of this encounter (statuses as of 12/13/2021) [facility] History of Past illness Narrative* Problem Noted Date Resolved Date History of gestational diabe kesha in prior , currently 05/24/2021 10/17/2021 Overview: October 09, 2021 abnormal 1 hr, 3hr ordered. Dante Waite MD 05/24/2021 Patient has a history of gestational diabetes that was diet controlled with her last . Will plan on early screening with hemoglobin A1c. TKRN Abnormal glucose in , antepartum 201905/29/2021 Overview: 11/16/19: 3hr gtt ordered. Kasey Perez MD documented as of this encounter (statuses as of 12/19/2021) [facility] of Past illness Narrative* Problem Noted Date Resolved Date History of gestational diabe kesha in prior , currently 05/24/2021 10/17/2021 Overview: October 09, 2021 abnormal 1 hr, 3hr ordered. Dante Waite MD 05/24/2021 Patient has a history of gestational diabetes that was diet controlled with her last . Will plan on early screening with hemoglobin A1c. TKRN Abnormal glucose in , antepartum 201905/29/2021 Overview: 11/16/19: 3hr gtt ordered. Kasey Perez MD documented as of this encounter (statuses as of 12/25/2021) [facility] History of Past illness Narrative* Problem Noted Date Resolved Date History of gestational diabe kesha in prior , currently 05/24/2021 10/17/2021 Overview: October 09, 2021 abnormal 1 hr, 3hr ordered. Dante Waite MD 05/24/2021 Patient has a history of gestational diabetes that was diet controlled with her last . Will plan on early screening with hemoglobin A1c. TKRN Abnormal glucose in , antepartum 201905/29/2021 Overview: 11/16/19: 3hr gtt ordered. Kasey Perez MD documented as of this encounter (statuses as of 01/02/2022) [facility] of Past illness Narrative* Problem Noted Date Resolved Date History of gestational diabe kesha in prior , currently 05/24/2021 10/17/2021 Overview: October 09, 2021 abnormal 1 hr, 3hr ordered. Dante Waite MD 05/24/2021 Patient has a history of gestational diabetes that was diet controlled with her last . Will plan on early screening with hemoglobin A1c. TKRN Abnormal glucose in , antepartum 201905/29/2021 Overview: 11/16/19: 3hr gtt ordered. Kasey Perez MD documented as of this encounter (statuses as of 01/04/2022) [facility] History of Past illness Narrative* Problem Noted Date Resolved Date Gestational diabetes mellitus, class A1 11/22/19 20 05/29/2021 Abnormal glucose in , antepartum 201905/29/2021 Overview: 11/16/19: 3hr gtt ordered. Kasey Perez MD documented as of this encounter (statuses as of 07/17/2021) [facility] History of Past illness Narrative* Problem Noted Date Resolved Date Gestational diabetes mellitus, class A1 11/22/1905/29/2021 Abnormal glucose in , antepartum 201905/29/2021 Overview: 11/16/19: 3hr gtt ordered. Kasey Perez MD documented as of this encounter (statuses as of 07/20/2021) [facility] History of Past illness Narrative* Problem Noted Date Resolved Date Gestational diabetes mellitus, class A1 11/22/19 20 05/29/2021 Abnormal glucose in , antepartum 201905/29/2021 Overview: 11/16/19: 3hr gtt ordered. Kasey Perez MD documented as of this encounter (statuses as of 08/07/2021) [address]10-2020 History of Past illness Narrative* Problem Noted Date Resolved Date Gestational diabetes mellitus, class A1 11/22/1905/29/2021 Abnormal glucose in , antepartum 201905/29/2021 Overview: 11/16/19: 3hr gtt ordered. Kasey Perez MD documented as of this encounter (statuses as of 08/13/2021) [address]-2020 History of Past illness Narrative* Problem Noted Date Resolved Date Gestational diabetes mellitus, class A1 11/22/1905/29/2021 Abnormal glucose in , antepartum 201905/29/2021 Overview: 11/16/19: 3hr gtt ordered. Kasey Perez MD documented as of this encounter (statuses as of 08/13/2021) [place] [address]10-2020 History of Past illness Narrative* Problem Noted Date Resolved Date Gestational diabetes mellitus, class A1 11/22/1905/29/2021 Abnormal glucose in , antepartum 201905/29/2021 Overview: 11/16/19: 3hr gtt ordered. Kasey Perez MD documented as of this encounter (statuses as of 08/15/2021) [place] [address]-2020 History of Past illness Narrative* Problem Noted Date Resolved Date Gestational diabetes mellitus, class A1 11/22/1905/29/2021 Abnormal glucose in , antepartum 201905/29/2021 Overview: 11/16/19: 3hr gtt ordered. Kasey Perez MD documented as of this encounter (statuses as of 08/17/2021) [address]-2020 History of Past illness Narrative* Problem Noted Date Resolved Date Gestational diabetes mellitus, class A1 11/22/1905/29/2021 Abnormal glucose in , antepartum 201905/29/2021 Overview: 11/16/19: 3hr gtt ordered. Kasey Perez MD documented as of this encounter (statuses as of 09/11/2021) [address]-2020 History of Past illness Narrative* Problem Noted Date Resolved Date Gestational diabetes mellitus, class A1 11/22/1905/29/2021 Abnormal glucose in , antepartum 201905/29/2021 Overview: 11/16/19: 3hr gtt ordered. Kasey Perez MD documented as of this encounter (statuses as of 09/17/2021) [address]-2020 History of Past illness Narrative* Problem Noted Date Resolved Date Gestational diabetes mellitus, class A1 11/22/1905/29/2021 Abnormal glucose in , antepartum 201905/29/2021 Overview: 11/16/19: 3hr gtt ordered. Kasey Perez MD documented as of this encounter (statuses as of 10/09/2021) [address]2020 History of Past illness Narrative* Problem Noted Date Resolved Date Gestational diabetes mellitus, class A1 11/22/1905/29/2021 Abnormal glucose in , antepartum 201905/29/2021 Overview: 11/16/19: 3hr gtt ordered. Kasey Perez MD documented as of this encounter (statuses as of 10/09/2021) [address] History of Past illness Narrative* Problem Noted Date Resolved Date Gestational diabetes mellitus, class A1 11/22/1905/29/2021 Abnormal glucose in , antepartum 201905/29/2021 Overview: 8/4/20: 3hr gtt ordered. Kasey Perez MD documented as of this encounter (statuses as of 10/11/2021) [facility]08-10-2020 History of Past illness Narrative* Problem Noted Date Resolved Date Gestational diabetes mellitus, class A1 11/22/19 20 05/29/2021 Abnormal glucose in , antepartum 201905/29/2021 Overview: 11/16/19: 3hr gtt ordered. Kasey Perez MD documented as of this encounter (statuses as of 10/16/2021) [facility] Zelaya [facility] September 16, 2022 10:47am Note Date/Time September 16, 2022 10:07 am [facility] Medical Records Department [address] [place] [address] Emergency Department Summary 09/16/22 MR#: [id number] Acct: [id number] Name: HERB MORAN Rep #:[id number] : 1990 32 From: Leonel Zelaya MD PCP: Dr. Kathy Vyas MD Status:REG ER Location: ED HPI History of Present Illness Chief Complaint: Chest Other Narrative Narrative: Patient has had a chronic cough for couple of months, today she woke up having pleuritic chest pain. She has no fevers or chills she has no back pain or tearing sensation. She has mostly retrosternal lower chest pain. It is sharp and stabbing [facility] Medical History (Updated 09/16/22 @ 10:[address] Leonel Zelaya MD) Gestational diabetes History of premature rupture of membranes (PPROM) Pre-eclampsia (spontaneous vaginal delivery) Home Medications clindamycin 1.2 % (1 % base)-benzoyl peroxide 5 % topical gel 1 applic topical DAILY 09/16/22 [History Last Taken Unknown] desogestrel-e.estradiol 0.15 mg-0.02 mg(21)/e.estrad 0.01 mg(5) tablet (Kariva (28)) 1 tab PO DAILY 09/16/22 [History Last Taken Unknown] naproxen 500 mg tablet (Naprosyn) 500 mg PO BID PRN pain 5 days #10 tabs 09/16/22 [Rx Last Taken Unknown] Allergy/AdvReac Type Severity Reaction Status Date / Time Sulfa (Sulfonamide Allergy Hives Verified 09/16/22 09:57 Antibiotics) Social History Smoking Status: Never smoker ROS ROS ED ROS Narrative Past medical history: Reviewed, unremarkable Medications: Reviewed Social history: Noncontributory Review of systems: All systems negative except as indicated General: No fever Eyes: No visual changes ENT: No upper airway congestion, normal voice Neck: No neck pain Cardiovascular: Chest pain as in HPI Respiratory: No shortness of breath or cough Gastrointestinal: No abdominal pain, nausea vomiting or diarrhea Genitourinary: No dysuria Musculoskeletal: Denies myalgias no difficulty with ambulation Skin: No rash Neurological: No memory loss, confusion or any focal weakness EXAM Physical Exam Narrative Exam Narrative: Physical exam General: Well nourished, Well developed, No Acute Distress Head: Normocephalic, Atraumatic Eyes: Conjunctiva not pale ENT: Moist mucous membranes Neck: Supple, Nontender, No lymphadenopathy Cardiovascular: Regular rate, Regular rhythm Chest wall: I cannot reproduce any kind of chest wall pain. Respiratory: No distress, CTA bilaterally Abdomen: Soft, Nontender, Nondistended Back: Nontender, Normal Inspection. Negative for: CVA tenderness Extremities: Nontender, No edema Skin: Normal color, No rash Neurological: Alert, Normal Strength, Normal Sensation Psychological: Normal affect Const Vital Signs: 09/16/22 09:55 09/16/22 09:55 09/16/22 09:55 Temperature 97.8 F Temperature Source Temporal Pulse Rate 86 Respiratory Rate 16 Respiratory Effort Normal Non-Labored Normal Non-Labored Respiratory Pattern Normal Normal Blood Pressure 133/100 H Blood Pressure Mean 111 Pulse Ox 99 Oxygen Delivery Method Room Air MDM MDM MDM Narrative Medical decision making narrative: Independent interpretation of test Telemetry: Sinus rhythm with a rate in the 80s without ectopy Chest x-ray 2 view read by me as normal Patient was seen by me in the emergency department. I discussed with who is also in the room. Initially I was worried about a pulmonary embolism, she traveled to [place] and has pleuritic chest pain. This is unfounded based on testing. I have considered other differential diagnoses however I was able to exclude all of these through a thorough history and physical exam as well as laboratory testing: myocardial infarction, aortic dissection, esophageal rupture, pneumothorax, musculoskeletal emergencies, upper abdominal pathologies such as pancreatitis, cholecystitis or choledocholithiasis, as well as ruptured bowel. She likely has costochondritis or pleurisy either way I will treat with NSAIDs for home. At this time the patient does not meet admission criteria. Lab Data Labs: Laboratory Results - last 24 hr 09/16/22 09/16/22 09/16/22 10:10 10:10 10:10 WBC 13.4 H RBC 4.61 Hgb 12.6 Hct 38.6 MCV 83.7 MCH 27.3 MCHC 32.6 RDW Std Deviation 41.5 RDW Coeff of Robert 13.5 Plt Count 367 MPV 8.5 Immature Gran % (Auto) 0.300 Neut % (Auto) 81.2 H Lymph % (Auto) 13.7 L [place] % (Auto) 4.0 Eos % (Auto) 0.5 Baso % (Auto) 0.3 Absolute Neuts (auto) 10.9 H Absolute Lymphs (auto) 1.84 Nucleated RBC % 0 D-Dimer Quant (PE/DVT) 0.29 Sodium 136 Potassium 4.1 Chloride 106 Carbon Dioxide 23.0 Anion Gap 7 BUN 10 Creatinine 0.68 Estim Creat Clear Calc 113.25 Est GFR (MDRD) Af Amer 129 Est GFR (MDRD) Non-Af 107 BUN/Creatinine Ratio 14.6 Glucose 92 Calcium 9.4 Total Bilirubin 0.20 AST 11 L ALT 19 Alkaline Phosphatase 78 Troponin I High Sens < 3 L Total Protein 8.2 Albumin 3.6 Globulin 4.6 H Albumin/Globulin Ratio 0.8 L EKG Initial EKG: Comments: Normal sinus rhythm with a rate of 84. Normal HI and QTc intervals. No ischemic changes. Normal EKG Interpreted by emergency doctor Discharge Plan Triage Chief Complaint: Chest Other ED Provider: Leonel Zelaya Dx/Rx/DC Orders Clinical Impression: Chest pain, Pleurisy Instructions: Pleurisy Prescriptions: New naproxen [Naprosyn] 500 mg tablet 500 mg PO BID PRN (Reason: pain) 5 Days Qty: 10 0RF No Action desog-e.estradiol/e.estradiol [Kariva (28)] 0.15-0.02 mgx21 /0.01 mg x 5 tablet 1 tab PO DAILY Label Comments: TAKE 1 TABLET BY MOUTH EVERY DAY clindamycin-benzoyl peroxide 1.2 %(1 % base) -5 % gel 1 applic TOPICAL DAILY Label Comments: APPLY EVERY DAY TO AREAS OF ACNE. CAN BLEACH CLOTHING UNTIL DRY. Primary Care Provider: Kathy Vyas Referrals: Kathy Vyas MD [Primary Care Provider] - 3-5 Days Disposition Disposition: Home, Self Care What to do if you have Problems For any increased pain, shortness of breath, bleeding, nausea or vomiting, chestpain, or any unexpected problems, contact your Primary Care Provider. Call [facility] ([phone]) or report to the closest Emergency Room. Call 911 if necessary. 09/16/22 1047 <Electronically signed by Leonel Zelaya MD> Cosigner Signature (if applicable): CC: Dr. Kathy Vyas MD ~ Signed [facility] Work Phone: Evaluation note* Diagnosis 15 weeks gestation of - Primary state, incidental Encounter for supervision of other normal in second trimester [facility] Diagnosis Encounter for anatomic survey- Primary 18 weeks gestation of state, incidental [facility] Encounter for supervision of other normal in second trimester- Primary 18 weeks gestation of state, incidental [facility] Diagnosis History of delivery, currently - Primary with history of pre-term labor [facility] Diagnosis 22 weeks gestation of - Primary state, incidental History of delivery, currently with history of pre-term labor Encounter for supervision of other normal in second trimester [facility] Diagnosis 26 weeks gestation of - Primary state, incidental History of delivery, currently with history of pre-term labor Encounter for supervision of other normal in second trimester [facility]* Diagnosis Abnormal glucose in , antepartum- Primary Abnormal maternal glucose tolerance, antepartum [facility] Diagnosis Abnormal maternal glucose tolerance, antepartum- Primary [facility] Diagnosis Abnormal maternal glucose tolerance, antepartum [facility]* Diagnosis 30 weeks gestation of - Primary state, incidental Diet controlled gestational diabetes mellitus (GDM) in third trimester [facility] Diagnosis Diet controlled gestational diabetes mellitus (GDM) in third trimester- Primary 32 weeks gestation of state, incidental Supervision of other high risk pregnancies, third trimester [facility]* Diagnosis Gestational diabetes mellitus, class A1- Primary Abnormal maternal glucose tolerance, complicating , childbirth, or the puerperium, unspecified as to episode of care 34 weeks gestation of state, incidental [facility]* Diagnosis Diet controlled gestational diabetes mellitus (GDM) in third trimester- Primary 34 weeks gestation of state, incidental Need for Tdap vaccination Need for prophylactic vaccination with combined uaftahpody-llfmikd-yvdgbdosl (DTP) vaccine [facility] noteNo assessment information availableWOhio[facility] Work Phone: Evaluation note* Diagnosis 35 weeks gestation of - Primary state, incidental Diet controlled gestational diabetes mellitus (GDM) in third trimester Supervision of other high risk pregnancies, first trimester [facility] Diagnosis 36 weeks gestation of - Primary state, incidental Diet controlled gestational diabetes mellitus (GDM) in third trimester Supervision of other high risk pregnancies, first trimester [facility]* Diagnosis Gestational diabetes mellitus, class A1- Primary Abnormal maternal glucose tolerance, complicating , childbirth, or the puerperium, unspecified as to episode of care Anemia during in second trimester Hx of preeclampsia, prior , currently with other poor obstetric history 37 weeks gestation of state, incidental [facility]* Diagnosis 38 weeks gestation of - Primary state, incidental Gestational diabetes mellitus, class A1 Abnormal maternal glucose tolerance, complicating , childbirth, or the puerperium, unspecified as to episode of care Hx of preeclampsia, prior , currently with other poor obstetric history [facility]* Diagnosis Onset Date Resolution Status 34 weeks gestation of acute Fall at home acute 39 weeks gestation of acute GDM, class A1 acute Multiparity acute (spontaneous vaginal delivery) acute [facility] Work Phone: Evaluation note* Diagnosis Routine follow-up- Primary documented in [facility]* Diagnosis care and examination- Primary Routine follow-up [facility]* Diagnosis Vaginal discharge- Primary Leukorrhea, not specified as infective Vaginal odor Unspecified symptom associated with female genital organs [facility] Diagnosis Acute cough- Primary Discomfort in chest Other chest pain LEDBETTER (dyspnea on exertion) Other dyspnea and respiratory abnormality [facility]* Diagnosis Acute vaginitis- Primary Vaginitis and vulvovaginitis, unspecified [facility]* Diagnosis Dysuria- Primary [facility]* Diagnosis Encounter for gynecological examination (general) (routine) without abnormal findings- Primary [facility]* Diagnosis Acute cough LEDBETTER (dyspnea on exertion) Other dyspnea and respiratory abnormality [facility]* Diagnosis with uncertain dates, antepartum- Primary state, incidental Encounter for supervision of normal in multigravida 7 weeks gestation of state, incidental Hx of preeclampsia, prior , currently with other poor obstetric history [facility]* Diagnosis Encounter for supervision of normal in multigravida- Primary Hx of preeclampsia, prior , currently with other poor obstetric history 9 weeks gestation of state, incidental [facility]* Diagnosis size consistent with dates during in first trimester- Primary 9 weeks gestation of state, incidental [facility]* Diagnosis Encounter for supervision of normal in multigravida- Primary Hx of preeclampsia, prior , currently with other poor obstetric history 11 weeks gestation of state, incidental [facility]* Diagnosis Hx of preeclampsia, prior , currently - Primary with other poor obstetric history Encounter for supervision of normal in multigravida 13 weeks gestation of state, incidental [facility]* Diagnosis Encounter for screening for malformation using ultrasound- Primary 13 weeks gestation of state, incidental documented in this encounter [facility] note* Diagnosis Encounter for supervision of normal in multigravida- Primary Hx of preeclampsia, prior , currently with other poor obstetric history 16 weeks gestation of state, incidental * Assessment & Plan Note - Dante Waite MD - 06/23/2024 10:27 AM EDT Associated Problem(s): Hx of preeclampsia, prior , currently * Assessment & Plan Note - Dante Waite MD - 06/23/2024 10:27 AM EDT Associated Problem(s): Encounter for supervision of normal in multigravida documented in this encounter [facility] note* Diagnosis Encounter for supervision of normal in multigravida (HCC)- Primary Hx of preeclampsia, prior , currently ([facility]) with other poor obstetric history 16 weeks gestation of ([facility]) state, incidental Supervision of high risk in second trimester ([facility])- Primary Unspecified high-risk 20 weeks gestation of ([facility]) state, incidental Hx of preeclampsia, prior , currently (HCC) with other poor obstetric history Hx of gestational diabetes in prior , currently ([facility]) with other poor obstetric history documented in this encounter [facility] note* Diagnosis Encounter for supervision of normal in multigravida (HCC)- Primary Hx of preeclampsia, prior , currently (HCC) with other poor obstetric history 16 weeks gestation of ([facility]) state, incidental Supervision of high risk in second trimester (HCC)- Primary Unspecified high-risk 24 weeks gestation of ([facility]) state, incidental Screening for diabetes mellitus * Assessment & Plan Note - Dante Waite MD - 08/18/2024 8:35 AM EDT Associated Problem(s): Supervision of high risk in second trimester (HCC) documented in this encounter [facility] note* Diagnosis Encounter for supervision of normal in multigravida ([facility])- Primary Hx of preeclampsia, prior , currently ([facility]) with other poor obstetric history 16 weeks gestation of ([facility]) state, incidental Supervision of high risk in second trimester ([facility])- Primary Unspecified high-risk 24 weeks gestation of ([facility]) state, incidental Screening for diabetes mellitus Supervision of high risk in third trimester ([facility])- Primary Unspecified high-risk 28 weeks gestation of ([facility]) state, incidental Need for vaccination Need for prophylactic vaccination and inoculation against unspecified single disease documented in this encounter [facility] note* Diagnosis Encounter for supervision of normal in multigravida ([facility])- Primary Hx of preeclampsia, prior , currently ([facility]) with other poor obstetric history 16 weeks gestation of ([facility]) state, incidental Supervision of high risk in second trimester ([facility])- Primary Unspecified high-risk 24 weeks gestation of ([facility]) state, incidental Screening for diabetes mellitus Supervision of high risk in third trimester ([facility])- Primary Unspecified high-risk 30 weeks gestation of ([facility]) state, incidental Hx of preeclampsia, prior , currently ([facility]) with other poor obstetric history Hx of gestational diabetes in prior , currently ([facility]) with other poor obstetric history Anemia during in third trimester ([facility]) Urinary frequency Fever, unspecified fever cause documented in this encounter [facility] note* Diagnosis Encounter for supervision of normal in multigravida ([facility])- Primary Hx of preeclampsia, prior , currently ([facility]) with other poor obstetric history 16 weeks gestation of ([facility]) state, incidental Supervision of high risk in second trimester ([facility])- Primary Unspecified high-risk 24 weeks gestation of ([facility]) state, incidental Screening for diabetes mellitus Supervision of high risk in third trimester ([facility])- Primary Unspecified high-risk Hx of preeclampsia, prior , currently ([facility]) with other poor obstetric history Anemia during in third trimester ([facility]) 32 weeks gestation of ([facility]) state, incidental * Assessment & Plan Note - Dante Waite MD - 10/13/2024 8:45 AM EDT Associated Problem(s): Hx of preeclampsia, prior , currently ([facility]) bp stable Orders: COMPLETE BLOOD COUNT; Future * Assessment & Plan Note - Dante Waite MD - 10/13/2024 8:45 AM EDT Associated Problem(s): Anemia during in third trimester ([facility]) Orders: COMPLETE BLOOD COUNT; Future [facility]* Diagnosis Encounter for supervision of normal in multigravida ([facility])- Primary Hx of preeclampsia, prior , currently ([facility]) with other poor obstetric history 16 weeks gestation of ([facility]) state, incidental Supervision of high risk in second trimester ([facility])- Primary Unspecified high-risk 24 weeks gestation of ([facility]) state, incidental Screening for diabetes mellitus Supervision of high risk in third trimester ([facility])- Primary Unspecified high-risk Hx of preeclampsia, prior , currently ([facility]) with other poor obstetric history Anemia during in third trimester ([facility]) 32 weeks gestation of ([facility]) state, incidental Supervision of high risk in third trimester ([facility])- Primary Unspecified high-risk Hx of preeclampsia, prior , currently ([facility]) with other poor obstetric history Anemia during in third trimester ([facility]) 34 weeks gestation of ([facility]) state, incidental [facility]* Diagnosis Encounter for supervision of normal in multigravida ([facility])- Primary Hx of preeclampsia, prior , currently ([facility]) with other poor obstetric history 16 weeks gestation of ([facility]) state, incidental Supervision of high risk in second trimester ([facility])- Primary Unspecified high-risk 24 weeks gestation of ([facility]) state, incidental Screening for diabetes mellitus Supervision of high risk in third trimester ([facility])- Primary Unspecified high-risk Hx of preeclampsia, prior , currently ([facility]) with other poor obstetric history Anemia during in third trimester ([facility]) 32 weeks gestation of ([facility]) state, incidental Supervision of high risk in third trimester ([facility])- Primary Unspecified high-risk Hx of preeclampsia, prior , currently ([facility]) with other poor obstetric history 36 weeks gestation of ([facility]) state, incidental Breech presentation with problem, single or unspecified fetus ([facility]) * Assessment & Plan Note - Dante Waite MD - 11/10/2024 10:57 AM EDT Associated Problem(s): Hx of preeclampsia, prior , currently ([facility]) bp stable, call for signs/symptoms of preeclampsia Orders: URINE OB DIP B/O ROUTINE, GROUP B STREPTOCOCCUS BY PCR * Assessment & Plan Note - Dante Waite MD - 11/10/2024 10:57 AM EDT Associated Problem(s): Breech presentation with problem ([facility]) r/b/a to ECV reviewed, desires to attempt if still breech next week. [facility] Encounter for supervision of normal in multigravida ([facility])- Primary Hx of preeclampsia, prior , currently ([facility]) with other poor obstetric history 16 weeks gestation of ([facility]) state, incidental Supervision of high risk in second trimester ([facility])- Primary Unspecified high-risk 24 weeks gestation of ([facility]) state, incidental Screening for diabetes mellitus Supervision of high risk in third trimester ([facility])- Primary Unspecified high-risk Hx of preeclampsia, prior , currently ([facility]) with other poor obstetric history Anemia during in third trimester ([facility]) 32 weeks gestation of ([facility]) state, incidental Supervision of high risk in third trimester ([facility])- Primary Unspecified high-risk Hx of preeclampsia, prior , currently ([facility]) with other poor obstetric history 36 weeks gestation of ([facility]) state, incidental Breech presentation with problem, single or unspecified fetus ([facility]) Supervision of high risk in third trimester ([facility])- Primary Unspecified high-risk Hx of preeclampsia, prior , currently ([facility]) with other poor obstetric history Breech presentation with problem, single or unspecified fetus ([facility]) 36 weeks gestation of ([facility]) state, incidental Anemia during in third trimester ([facility]) documented in this encounter [facility] note* Diagnosis Encounter for supervision of normal in multigravida ([facility])- Primary Hx of preeclampsia, prior , currently ([facility]) with other poor obstetric history 16 weeks gestation of ([facility]) state, incidental Supervision of high risk in second trimester ([facility])- Primary Unspecified high-risk 24 weeks gestation of ([facility]) state, incidental Screening for diabetes mellitus Supervision of high risk in third trimester ([facility])- Primary Unspecified high-risk Hx of preeclampsia, prior , currently ([facility]) with other poor obstetric history Anemia during in third trimester ([facility]) 32 weeks gestation of ([facility]) state, incidental Supervision of high risk in third trimester ([facility])- Primary Unspecified high-risk Hx of preeclampsia, prior , currently ([facility]) with other poor obstetric history 36 weeks gestation of ([facility]) state, incidental Breech presentation with problem, single or unspecified fetus ([facility]) 37 weeks gestation of ([facility])- Primary state, incidental Supervision of high risk in third trimester ([facility]) Unspecified high-risk documented in this encounter [facility] note* Diagnosis Encounter for supervision of normal in multigravida ([facility])- Primary Hx of preeclampsia, prior , currently ([facility]) with other poor obstetric history 16 weeks gestation of ([facility]) state, incidental Supervision of high risk in second trimester ([facility])- Primary Unspecified high-risk 24 weeks gestation of ([facility]) state, incidental Screening for diabetes mellitus Supervision of high risk in third trimester ([facility])- Primary Unspecified high-risk Hx of preeclampsia, prior , currently ([facility]) with other poor obstetric history Anemia during in third trimester ([facility]) 32 weeks gestation of ([facility]) state, incidental Supervision of high risk in third trimester ([facility])- Primary Unspecified high-risk Hx of preeclampsia, prior , currently ([facility]) with other poor obstetric history 36 weeks gestation of ([facility]) state, incidental Breech presentation with problem, single or unspecified fetus ([facility]) Supervision of high risk in third trimester ([facility])- Primary Unspecified high-risk Hx of preeclampsia, prior , currently ([facility]) with other poor obstetric history Breech presentation with problem, single or unspecified fetus ([facility]) Anemia during in third trimester ([facility]) 38 weeks gestation of ([facility]) state, incidental * Assessment & Plan Note - Kasey Martines MD - 11/24/2024 10:07 AM EDTAssociated Problem(s): Hx of preeclampsia, prior , currently ([facility]) Orders: URINE OB DIP B/O * Assessment & Plan Note - Kasey Martines MD - 11/24/2024 10:07 AM EDTAssociated Problem(s): Breech presentation with problem ([facility]) Planned cs Orders: URINE OB DIP B/O * Assessment & Plan Note - Kasey Martines MD - 11/24/2024 10:07 AM EDTAssociated Problem(s): Anemia during in third trimester ([facility]) Continue PO iron Orders: URINE OB DIP B/O [facility] Additional Instructions Keep next follow up appointment.[facility] Work Phone: Progress note Author Alessandra Clemens [facility] Note Date/Time November 15, 2024 6:5 7pm [facility] Medical Records Department [address] [facility] [address] [facility] [place] [address] Progress Note - OBGYN 11/15/241851 MR#: [id number] Acct: [id number] Name: HERB MORAN Rep #:[id number] : 1990 34 From: Alessandra Clemens DO PCP: Dr. Kathy Vyas MD Status:REG [facility] Location: [place] [address] Subjective Subjective Patient has been having contractions since ECV. She reports some contractions prior to the ECV as well, but the contractions now feel more noticeable to her. At times they are infrequent and other times become more frequent. No vb or lof.She offers no other concerns. Objective Data Objective Data Vital Signs: Vital Signs Temp Pulse Resp BP Pulse Ox 97.8 F 90 16 135/64 H 99 11/15/24 14:53 11/15/24 14:53 11/15/24 14:53 11/15/24 14:53 11/15/24 14:53 Weight: 195 lb 6.4 oz Body Mass Index (BMI) 31.5 Intake & Output: Intake and Output for Last 24 Hours 11/13/24 11/14/24 11/15/24 23:59 23:59 23:59 Intake Total 935.42 / 935.42 Balance 935.42 / 935.42 Physical Exam Const alert and no apparent distress General Appearance: comfortable GI non-tender Narrative: Cvx 1 cm, thick, posterior NST FHR Rate Baby A Baseline: 130 Variability:: Moderate Accelerations:: 15 x 15 Decelerations:: None NST Reactive:: Yes FHR Category:: Category I Uterine Activity:: irregular pattern Assessment & Plan (1) 37 weeks gestation of : (2) Complete breech: PLAN: Patient had ECV today. Had contractions prior to ECV, but they became morenoticeable after the ECV. Irregular ctx's per patient and on toco. Patient was monitored for 6 hours after the ECV. Cvx remains 1, thick, posterior. FHT reactive and reassuring. No vaginal bleeding. She lives about 10 minutes from the hospital. Discussed precautions on when to call tonight or return to the hospital. Discharge instructions reviewed. Patient comfortable going home and questions answered. 11/15/241856 <Electronically signed by Alessandra Clemens DO> Cosigner Signature (if applicable): CC: ~ Signed [facility] Work Phone: [facility] (narrative)* Diagnostic Procedure Only (Routine) - Authorized Specialty Diagnoses / Procedures Referred By Contac t Referred To Contact [facility] Diagnoses Diet controlled gestational diabetes mellitus (GDM) in third trimester 32 weeks gestation of Supervision of other high risk pregnancies, third trimester Procedures OBSTETRIC ULTRASOUND WHI US PREG UTERUS AFTER 1ST TRIMEST GESTATION Dante Waite MD [address] [place] [address] [address] Referral ID Status Reason Start Date Expiration Date Visits Requested Visits Authorized [id number] Authorized Auto-Generat ed Referral 11/20/2021 11/20/2022 1 1 [facility] Diagnostic Procedure Only (Routine) - Authorized Specialty Diagnoses / Procedures Referred By Contac t Referred To Contact [facility] Diagnoses 7 weeks gestation of Procedures OBSTETRIC ULTRASOUND WHI US PREG UTERUS AFTER 1ST TRIMEST GESTATION Mai Blanton APRN.CNP [address] [place] [address] [address] Referral ID Status Reason Start Date Expiration Date Visits Requested Visits Authorized [id number] Authorized Auto-Generat ed Referral 04/19/2024 04/19/2025 1 1 [facility] for referral (narrative)* Diagnostic Procedure Only (Routine) - Authorized Specialty Diagnoses / Procedures Referred By Contac t Referred To Contact [facility] Diagnoses Encounter for supervision of normal in multigravida Hx of preeclampsia, prior , currently 9 weeks gestation of Procedures OBSTETRIC ULTRASOUND WHI US PREG UTERUS AFTER 1ST TRIMEST GESTATION Dante Waite MD [address] [place] [address] [facility] [place] [address] Referral ID Status Reason Start Date Expiration Date Visits Requested Visits Authorized [id number] Authorized Auto-Generat ed Referral 05/04/2024 05/04/2025 1 1 * Diagnostic Procedure Only (Routine) - Authorized Specialty Diagnoses / Procedures Referred By Ana t Referred To Contact [facility] Diagnoses Encounter for supervision of normal in multigravida Hx of preeclampsia, prior , currently 9 weeks gestation of Procedures OBSTETRIC ULTRASOUND WHI US PREG UTERUS AFTER 1ST TRIMEST GESTATION Dante Waite MD [address] [place] [address] [place] [address] [address] Referral ID Status Reason Start Date Expiration Date Visits Requested Visits Authorized [id number] Authorized Auto-Generat ed Referral 05/04/2024 05/04/2025 1 1 [facility])No reason for referral information availableWOhioHealth [facility] Work Phone: Reason for visit Narrative* Diagnostic Procedure Only (Routine) - Closed Specialty Diagnoses / Procedures Referred By Ana dennis Referred To Contact [facility] Diagnoses 7 weeks gestation of Procedures OBSTETRIC ULTRASOUND WHI US PREG UTERUS AFTER 1ST TRIMEST GESTATION Mai Blanton APRN.CRATE BUILDER [address] [place] [address] [address] Referral ID Status Reason Start Date Expiration Date V isits Requested Visits Authorized [id number] Closed Auto-Generate d Referral 04/19/2024 04/19/2025 1 1 [facility] Medications Administered Section Inactive Administered Medications - up to 3 most recent administrations Medication Order MAR Action Action Date Dose Rate Site HYDROXYprogesterone caproate (PF) 250 mg injection (LINDA) 250 mg, INTRAMUSCULAR, ONCE, 1 dose, On Fri08/17/21 at 1100, Hazardous Potential Reproductive Risk Drug: Use appropriate PPE. Given 08/17/2021 10:10 AM EDT 250 mg Buttocks, Right Chief Complaint and Reason for Visit Chief Complaint FALL Chief Complaint FALL VAGINAL DELIVERY Reason for Visit 34 weeks gestation o f Fall at home 39 weeks gestation of GDM, class A1 Multiparity (spontaneous vaginal delivery) Chief Complaint cp Chief Complaint Admit Date VERSION November 15, 2024 10: 35am Reason for Visit Admit Date 37 weeks gestation of November 152024 10:35am Complete breech November 15, 2024 10: 35am Advance Directives Advance Directive Response Recorded Date/ Time Living Will No January 10, 2020 7:37am Power of Manager Continuous Improvement No December 7:37am Advance Directive Response Recorded Date/ Time Name of Medical Power of Manager Continuous Improvement Alexis Dean January 04, 2022 7:26am Living Will Yes January 04, 2022 7:26am Power of Manager Continuous Improvement Yes December 7:26am Advance Directive Response Recorded Date/ Time Living Will Yes September 16, 2022 9 :55am Power of Manager Continuous Improvement Yes September 16, 2022 9:55am Name of Medical Power of Manager Continuous Improvement ALEXIS MORAN AND ТАТЬЯНА WILLIS September 16, 2022 9:55am Summary Purpose Family History No Family History Records FoundNo Family History Records Found Additional Source Comments Source Comments (unrecognize d section and content) In the event this informatio n is protected by the Federal Confidentiality of Alcohol and Drug Abuse Patient Records regulations: The Federal rules restrict any use of the information to criminally investigate or prosecute any alcohol or drug abuse patient.[facility] Center[facility] the event this information is protected by the Federal Confidentiality of Alcohol and Drug Abuse Patient Records regulations: The Federal rules restrict any use of the information to criminally investigate or prosecute any alcohol or drug abuse patient.[facility] CenterIn the event this information is protected by the Federal Confidentiality of Alcohol and Drug Abuse Patient Records regulations: The Federal rules restrict any use of the information to criminally investigate or prosecute any alcohol or drug abuse patient.[facility] CenterIn the event this information is protected by the Federal Confidentiality of Alcohol and Drug Abuse Patient Records regulations: The Federal rules restrict any use of the information to criminally investigate or prosecute any alcohol or drug abuse patient.[facility] CenterIn the event this information is protected by the Federal Confidentiality of Alcohol and Drug Abuse Patient Records regulations: The Federal rules restrict any use of the information to criminally investigate or prosecute any alcohol or drug abuse patient.[facility] the event this information is protected by the Federal Confidentiality of Alcohol and Drug Abuse Patient Records regulations: The Federal rules restrict any use of the information to criminally investigate or prosecute any alcohol or drug abuse patient.[facility] CenterIn the event this information is protected by the Federal Confidentiality of Alcohol and Drug Abuse Patient Records regulations: The Federal rules restrict any use of the information to criminally investigate or prosecute any alcohol or drug abuse patient.[facility] CenterIn the event this information is protected by the Federal Confidentiality of Alcohol and Drug Abuse Patient Records regulations: The Federal rules restrict any use of the information to criminally investigate or prosecute any alcohol or drug abuse patient.[facility] CenterIn the event this information is protected by the Federal Confidentiality of Alcohol and Drug Abuse Patient Records regulations: The Federal rules restrict any use of the information to criminally investigate or prosecute any alcohol or drug abuse patient.[facility] CenterIn the event this information is protected by the Federal Confidentiality of Alcohol and Drug Abuse Patient Records regulations: The Federal rules restrict any use of the information to criminally investigate or prosecute any alcohol or drug abuse patient.[facility] CenterIn the event this information is protected by the Federal Confidentiality of Alcohol and Drug Abuse Patient Records regulations: The Federal rules restrict any use of the information to criminally investigate or prosecute any alcohol or drug abuse patient.[facility] CenterIn the event this information is protected by the Federal Confidentiality of Alcohol and Drug Abuse Patient Records regulations: The Federal rules restrict any use of the information to criminally investigate or prosecute any alcohol or drug abuse patient.[facility] CenterIn the event this information is protected by the Federal Confidentiality of Alcohol and Drug Abuse Patient Records regulations: The Federal rules restrict any use of the information to criminally investigate or prosecute any alcohol or drug abuse patient.[facility] CenterIn the event this information is protected by the Federal Confidentiality of Alcohol and Drug Abuse Patient Records regulations: The Federal rules restrict any use of the information to criminally investigate or prosecute any alcohol or drug abuse patient.[facility] CenterIn the event this information is protected by the Federal Confidentiality of Alcohol and Drug Abuse Patient Records regulations: The Federal rules restrict any use of the information to criminally investigate or prosecute any alcohol or drug abuse patient.[facility] CenterIn the event this information is protected by the Federal Confidentiality of Alcohol and Drug Abuse Patient Records regulations: The Federal rules restrict any use of the information to criminally investigate or prosecute any alcohol or drug abuse patient.[facility] CenterIn the event this information is protected by the Federal Confidentiality of Alcohol and Drug Abuse Patient Records regulations: The Federal rules restrict any use of the information to criminally investigate or prosecute any alcohol or drug abuse patient.[facility] CenterIn the event this information is protected by the Federal Confidentiality of Alcohol and Drug Abuse Patient Records regulations: The Federal rules restrict any use of the information to criminally investigate or prosecute any alcohol or drug abuse patient.[facility] CenterIn the event this information is protected by the Federal Confidentiality of Alcohol and Drug Abuse Patient Records regulations: The Federal rules restrict any use of the information to criminally investigate or prosecute any alcohol or drug abuse patient.[facility] CenterIn the event this information is protected by the Federal Confidentiality of Alcohol and Drug Abuse Patient Records regulations: The Federal rules restrict any use of the information to criminally investigate or prosecute any alcohol or drug abuse patient.[facility] CenterIn the event this information is protected by the Federal Confidentiality of Alcohol and Drug Abuse Patient Records regulations: The Federal rules restrict any use of the information to criminally investigate or prosecute any alcohol or drug abuse patient.[facility] CenterIn the event this information is protected by the Federal Confidentiality of Alcohol and Drug Abuse Patient Records regulations: The Federal rules restrict any use of the information to criminally investigate or prosecute any alcohol or drug abuse patient.[facility] CenterIn the event this information is protected by the Federal Confidentiality of Alcohol and Drug Abuse Patient Records regulations: The Federal rules restrict any use of the information to criminally investigate or prosecute any alcohol or drug abuse patient.[facility] CenterIn the event this information is protected by the Federal Confidentiality of Alcohol and Drug Abuse Patient Records regulations: The Federal rules restrict any use of the information to criminally investigate or prosecute any alcohol or drug abuse patient.[facility] CenterIn the event this information is protected by the Federal Confidentiality of Alcohol and Drug Abuse Patient Records regulations: The Federal rules restrict any use of the information to criminally investigate or prosecute any alcohol or drug abuse patient.[facility] CenterIn the event this information is protected by the Federal Confidentiality of Alcohol and Drug Abuse Patient Records regulations: The Federal rules restrict any use of the information to criminally investigate or prosecute any alcohol or drug abuse patient.[facility] CenterIn the event this information is protected by the Federal Confidentiality of Alcohol and Drug Abuse Patient Records regulations: The Federal rules restrict any use of the information to criminally investigate or prosecute any alcohol or drug abuse patient.[facility] CenterIn the event this information is protected by the Federal Confidentiality of Alcohol and Drug Abuse Patient Records regulations: The Federal rules restrict any use of the information to criminally investigate or prosecute any alcohol or drug abuse patient.[facility] CenterIn the event this information is protected by the Federal Confidentiality of Alcohol and Drug Abuse Patient Records regulations: The Federal rules restrict any use of the information to criminally investigate or prosecute any alcohol or drug abuse patient.[facility] CenterIn the event this information is protected by the Federal Confidentiality of Alcohol and Drug Abuse Patient Records regulations: The Federal rules restrict any use of the information to criminally investigate or prosecute any alcohol or drug abuse patient.[facility] CenterIn the event this information is protected by the Federal Confidentiality of Alcohol and Drug Abuse Patient Records regulations: The Federal rules restrict any use of the information to criminally investigate or prosecute any alcohol or drug abuse patient.[facility] CenterIn the event this information is protected by the Federal Confidentiality of Alcohol and Drug Abuse Patient Records regulations: The Federal rules restrict any use of the information to criminally investigate or prosecute any alcohol or drug abuse patient.[facility] CenterIn the event this information is protected by the Federal Confidentiality of Alcohol and Drug Abuse Patient Records regulations: The Federal rules restrict any use of the information to criminally investigate or prosecute any alcohol or drug abuse patient.[facility] CenterIn the event this information is protected by the Federal Confidentiality of Alcohol and Drug Abuse Patient Records regulations: The Federal rules restrict any use of the information to criminally investigate or prosecute any alcohol or drug abuse patient.[facility] CenterIn the event this information is protected by the Federal Confidentiality of Alcohol and Drug Abuse Patient Records regulations: The Federal rules restrict any use of the information to criminally investigate or prosecute any alcohol or drug abuse patient.[facility] CenterIn the event this information is protected by the Federal Confidentiality of Alcohol and Drug Abuse Patient Records regulations: The Federal rules restrict any use of the information to criminally investigate or prosecute any alcohol or drug abuse patient.[facility] CenterIn the event this information is protected by the Federal Confidentiality of Alcohol and Drug Abuse Patient Records regulations: The Federal rules restrict any use of the information to criminally investigate or prosecute any alcohol or drug abuse patient.[facility] CenterIn the event this information is protected by the Federal Confidentiality of Alcohol and Drug Abuse Patient Records regulations: The Federal rules restrict any use of the information to criminally investigate or prosecute any alcohol or drug abuse patient.[facility] CenterIn the event this information is protected by the Federal Confidentiality of Alcohol and Drug Abuse Patient Records regulations: The Federal rules restrict any use of the information to criminally investigate or prosecute any alcohol or drug abuse patient.[facility] CenterIn the event this information is protected by the Federal Confidentiality of Alcohol and Drug Abuse Patient Records regulations: The Federal rules restrict any use of the information to criminally investigate or prosecute any alcohol or drug abuse patient.[facility] CenterIn the event this information is protected by the Federal Confidentiality of Alcohol and Drug Abuse Patient Records regulations: The Federal rules restrict any use of the information to criminally investigate or prosecute any alcohol or drug abuse patient.[facility] CenterIn the event this information is protected by the Federal Confidentiality of Alcohol and Drug Abuse Patient Records regulations: The Federal rules restrict any use of the information to criminally investigate or prosecute any alcohol or drug abuse patient.[facility] CenterIn the event this information is protected by the Federal Confidentiality of Alcohol and Drug Abuse Patient Records regulations: The Federal rules restrict any use of the information to criminally investigate or prosecute any alcohol or drug abuse patient.[facility] CenterIn the event this information is protected by the Federal Confidentiality of Alcohol and Drug Abuse Patient Records regulations: The Federal rules restrict any use of the information to criminally investigate or prosecute any alcohol or drug abuse patient.[facility] CenterIn the event this information is protected by the Federal Confidentiality of Alcohol and Drug Abuse Patient Records regulations: The Federal rules restrict any use of the information to criminally investigate or prosecute any alcohol or drug abuse patient.[facility] CenterIn the event this information is protected by the Federal Confidentiality of Alcohol and Drug Abuse Patient Records regulations: The Federal rules restrict any use of the information to criminally investigate or prosecute any alcohol or drug abuse patient.[facility] CenterIn the event this information is protected by the Federal Confidentiality of Alcohol and Drug Abuse Patient Records regulations: The Federal rules restrict any use of the information to criminally investigate or prosecute any alcohol or drug abuse patient.[facility] CenterIn the event this information is protected by the Federal Confidentiality of Alcohol and Drug Abuse Patient Records regulations: The Federal rules restrict any use of the information to criminally investigate or prosecute any alcohol or drug abuse patient.[facility] CenterIn the event this information is protected by the Federal Confidentiality of Alcohol and Drug Abuse Patient Records regulations: The Federal rules restrict any use of the information to criminally investigate or prosecute any alcohol or drug abuse patient.[facility] CenterIn the event this information is protected by the Federal Confidentiality of Alcohol and Drug Abuse Patient Records regulations: The Federal rules restrict any use of the information to criminally investigate or prosecute any alcohol or drug abuse patient.[facility] CenterIn the event this information is protected by the Federal Confidentiality of Alcohol and Drug Abuse Patient Records regulations: The Federal rules restrict any use of the information to criminally investigate or prosecute any alcohol or drug abuse patient.[facility] CenterIn the event this information is protected by the Federal Confidentiality of Alcohol and Drug Abuse Patient Records regulations: The Federal rules restrict any use of the information to criminally investigate or prosecute any alcohol or drug abuse patient.[facility] CenterIn the event this information is protected by the Federal Confidentiality of Alcohol and Drug Abuse Patient Records regulations: The Federal rules restrict any use of the information to criminally investigate or prosecute any alcohol or drug abuse patient.[facility] CenterIn the event this information is protected by the Federal Confidentiality of Alcohol and Drug Abuse Patient Records regulations: The Federal rules restrict any use of the information to criminally investigate or prosecute any alcohol or drug abuse patient.[facility] CenterIn the event this information is protected by the Federal Confidentiality of Alcohol and Drug Abuse Patient Records regulations: The Federal rules restrict any use of the information to criminally investigate or prosecute any alcohol or drug abuse patient.[facility]In the event this information is protected by the Federal Confidentiality of Alcohol and Drug Abuse Patient Records regulations: The Federal rules restrict any use of the information to criminally investigate or prosecute any alcohol or drug abuse patient.[facility] CenterIn the event this information is protected by the Federal Confidentiality of Alcohol and Drug Abuse Patient Records regulations: The Federal rules restrict any use of the information to criminally investigate or prosecute any alcohol or drug abuse patient.[facility] CenterIn the event this information is protected by the Federal Confidentiality of Alcohol and Drug Abuse Patient Records regulations: The Federal rules restrict any use of the information to criminally investigate or prosecute any alcohol or drug abuse patient.[facility] CenterIn the event this information is protected by the Federal Confidentiality of Alcohol and Drug Abuse Patient Records regulations: The Federal rules restrict any use of the information to criminally investigate or prosecute any alcohol or drug abuse patient.[facility] CenterIn the event this information is protected by the Federal Confidentiality of Alcohol and Drug Abuse Patient Records regulations: The Federal rules restrict any use of the information to criminally investigate or prosecute any alcohol or drug abuse patient.[facility] CenterIn the event this information is protected by the Federal Confidentiality of Alcohol and Drug Abuse Patient Records regulations: The Federal rules restrict any use of the information to criminally investigate or prosecute any alcohol or drug abuse patient.[facility] CenterIn the event this information is protected by the Federal Confidentiality of Alcohol and Drug Abuse Patient Records regulations: The Federal rules restrict any use of the information to criminally investigate or prosecute any alcohol or drug abuse patient.[facility] CenterIn the event this information is protected by the Federal Confidentiality of Alcohol and Drug Abuse Patient Records regulations: The Federal rules restrict any use of the information to criminally investigate or prosecute any alcohol or drug abuse patient.[facility] CenterIn the event this information is protected by the Federal Confidentiality of Alcohol and Drug Abuse Patient Records regulations: The Federal rules restrict any use of the information to criminally investigate or prosecute any alcohol or drug abuse patient.[facility] CenterIn the event this information is protected by the Federal Confidentiality of Alcohol and Drug Abuse Patient Records regulations: The Federal rules restrict any use of the information to criminally investigate or prosecute any alcohol or drug abuse patient.[facility] CenterIn the event this information is protected by the Federal Confidentiality of Alcohol and Drug Abuse Patient Records regulations: The Federal rules restrict any use of the information to criminally investigate or prosecute any alcohol or drug abuse patient.[facility] CenterIn the event this information is protected by the Federal Confidentiality of Alcohol and Drug Abuse Patient Records regulations: The Federal rules restrict any use of the information to criminally investigate or prosecute any alcohol or drug abuse patient.[facility] CenterIn the event this information is protected by the Federal Confidentiality of Alcohol and Drug Abuse Patient Records regulations: The Federal rules restrict any use of the information to criminally investigate or prosecute any alcohol or drug abuse patient.[facility] Reason for Visit (unrecogniz ed section and content) Reason Comments Cigna form Linda Reason Onset Date Comments Care 07/20/2021 Reason Comments US Specialty Diagnoses / Procedures Referred By Ana dennis Referred To Contact [facility] Diagnoses 11 weeks gestation of History of gestational diabetes in prior , currently Hx of preeclampsia, prior , currently Encounter for supervision of other normal in first trimester Procedures OBSTETRIC ULTRASOUND WHI US PREG UTERUS AFTER 1ST TRIMEST GESTATION Dante Waite MD [address] [place] [address] [facility] [address] [place] [address] Referral ID Status Reason Start Date Expiration Date V isits Requested Visits Authorized [id number] Closed Auto-Generate d Referral 06/26/2021 06/26/2022 1 1 Reason Onset Date Comments Care 08/13/2021 Reason Onset Date Comments Injections 08/17/2021 Hydroxy Progeste nichole Reason Comments CAM Order Reason Onset Date Comments Care 09/11/2021 Reason Onset Date Comments Refill Request 08/30/2021 Reason Onset Date Comments Care 10/09/2021 Reason Comments Results Reason Comments FMLA Paperwork Reason Onset Date Comments Refill Request 11/01/2021 Reason Onset Date Comments Care 11/07/2021 Reason Onset Date Comments Care 11/20/2021 Specialty Diagnoses / Procedures Referred By Ana t Referred To Contact [facility] Diagnoses Diet controlled gestational diabetes mellitus (GDM) in third trimester 32 weeks gestation of Supervision of other high risk pregnancies, third trimester Procedures OBSTETRIC ULTRASOUND WHI US PREG UTERUS AFTER 1ST TRIMEST GESTATION Dante Waite MD [address] [place] [address] [address] Referral ID Status Reason Start Date Expiration Date V isits Requested Visits Authorized [id number] Closed Auto-Generate d Referral 11/20/2021 11/20/2022 1 1 Reason Onset Date Comments Care 12/04/2021 Reason Onset Date Comments Care 12/13/2021 Reason Onset Date Comments Care 12/19/2021 Reason Onset Date Comments Care 12/25/2021 Reason Onset Date Comments Care 01/01/2022 Reason Comments Ob Delivery Note Reason Comments Early Reason Comments Care Reason Comments Vaginal Problem Reason Comments Refill Request Reason Onset Date Comments Refill Request 08/05/2022 Reason Comments Cough X 2 weeks Reason Onset Date Comments Refill Request 07/07/2023 Reason Onset Date Comments Refill Request 09/19/2023 Reason Comments Well Woman Reason Comments New OB First OB Reason Onset Date Comments Care 05/04/2024 Reason Onset Date Comments Care 05/18/2024 Reason Onset Date Comments Care 06/02/2024 Specialty Diagnoses / Procedures Referred By Ana dennis Referred To Contact [facility] Diagnoses Encounter for supervision of normal in multigravida Hx of preeclampsia, prior , currently 9 weeks gestation of Procedures OBSTETRIC ULTRASOUND WHI US PREG UTERUS AFTER 1ST TRIMEST GESTATION Dante Waite MD [address] [place] [address] Phone: tel: fax: [address] [address] Referral ID Status Reason Start Date Expiration Date V isits Requested Visits Authorized [id number] Closed Auto-Generate d Referral 05/04/2024 05/04/2025 1 1 Reason Onset Date Comments Care 07/21/2024 Reason Onset Date Comments Care 08/18/2024 Reason Onset Date Comments Care 09/27/2024 Reason Comments Breast Pump Reason Onset Date Comments Care 10/27/2024 Reason Onset Date Comments Care 11/10/2024 Reason Onset Date Comments Care 11/12/2024 Reason Onset Date Comments Care 11/15/2024 Reason Onset Date Comments Population Health Navigation Outreach 11/23/2024 to PCP/OB Reason Onset Date Comments Care 11/24/2024 Care Teams (unrecognized sec tion and content) Manager Costing Relationship Specialty Start Date End Date Min Bermeo, DO PCP - General Genetics 03/28/11 Manager Costing Relationship Specialty Start Date End Date Min Bermeo, DO PCP - General Genetics 03/28/11 Manager Costing Relationship Specialty Start Date End Date Min Bermeo, DO PCP - General Genetics 03/28/11 Manager Costing Relationship Specialty Start Date End Date Min Bermeo, DO PCP - General Genetics 03/28/11 Manager Costing Relationship Specialty Start Date End Date Min Bermeo, DO PCP - General Genetics 03/28/11 Manager Costing Relationship Specialty Start Date End Date Min Bermeo, DO PCP - General Genetics 03/28/11 Manager Costing Relationship Specialty Start Date End Date Min Bermeo, DO PCP - General Genetics 03/28/11 Manager Costing Relationship Specialty Start Date End Date Min Bermeo, DO PCP - General Genetics 03/28/11 Manager Costing Relationship Specialty Start Date End Date Min Bermeo, DO PCP - General Genetics 03/28/11 Manager Costing Relationship Specialty Start Date End Date Min Bermeo, DO PCP - General Genetics 03/28/11 Manager Costing Relationship Specialty Start Date End Date Min Bermeo, DO PCP - General Genetics 03/28/11 Manager Costing Relationship Specialty Start Date End Date Min Bermeo, DO PCP - General Genetics 03/28/11 Manager Costing Relationship Specialty Start Date End Date Min Bermeo, DO PCP - General Genetics 03/28/11 Manager Costing Relationship Specialty Start Date End Date Min Bermeo, DO PCP - General Genetics 03/28/11 Manager Costing Relationship Specialty Start Date End Date Min Bermeo, DO PCP - General Genetics 03/28/11 Team Status: Active Member Role Status Dates Dr. Kathy Vyas MD Primary Care Provider Active Team Status: Inactive Member Role Status Dates Dr. Kathy Vyas MD Primary Care Provider Active Dr. Leonel Zelaya MD Emergency Provider Active Manager Costing Relationship Specialty Start Date End Date Kathy Vyas MD [address] [place] [address] PCP - General Family Medicine 09/16/22 Manager Costing Relationship Specialty Start Date End Date Kathy Vyas MD [address] [place] [address] PCP - General Family Medicine 09/16/22 Manager Costing Relationship Specialty Start Date End Date Kathy Vyas MD [address] [place] [address] PCP - General Family Medicine 09/16/22 Manager Costing Relationship Specialty Start Date End Date Kathy Vyas MD [address] [place] [address] PCP - General Family Medicine 09/16/22 Manager Costing Relationship Specialty Start Date End Date Kathy Vyas MD [address] [place] [address] PCP - General Family Medicine 09/16/22 Manager Costing Relationship Specialty Start Date End Date Kathy Vyas MD [address] [place] [address] PCP - General Family Medicine 09/16/22 Manager Costing Relationship Specialty Start Date End Date Kathy Vyas MD [address] [place] [address] PCP - General Family Medicine 09/16/22 Manager Costing Relationship Specialty Start Date End Date Kahty Vyas MD [address] [place] [address] PCP - General Family Medicine 09/16/22 Manager Costing Relationship Specialty Start Date End Date Kathy Vyas MD [address] [place] [address] PCP - General Family Medicine 09/16/22 Manager Costing Relationship Specialty Start Date End Date Kathy Vyas MD [address] [place] [address] PCP - General Family Medicine 09/16/22 Manager Costing Relationship Specialty Start Date End Date Kathy Vyas MD [address] [place] [address] PCP - General Family Medicine 09/16/22 Manager Costing Relationship Specialty Start Date End Date Kathy Vyas MD [address] [place] [address] PCP - General Family Medicine 09/16/22 Manager Costing Relationship Specialty Start Date End Date Kathy Vyas MD [address] [place] [address] PCP - General Family Medicine 09/16/22 Manager Costing Relationship Specialty Start Date End Date Kathy Vyas MD [address] [place] [address] PCP - General Family Medicine 09/16/22 Manager Costing Relationship Specialty Start Date End Date Kathy Vyas MD [address] [place] [address] PCP - General Family Medicine 09/16/22 Manager Costing Relationship Specialty Start Date End Date Kathy Vyas MD [address] [place] [address] PCP - General Family Medicine 09/16/22 Manager Costing Relationship Specialty Start Date End Date Kathy Vyas MD [address] [place] [address] PCP - General Family Medicine 09/16/22 Manager Costing Relationship Specialty Start Date End Date Kathy Vyas MD [address] [place] [address] PCP - General Family Medicine 09/16/22 Manager Costing Relationship Specialty Start Date End Date Kathy Vyas MD [address] [place] [address] PCP - General Family Medicine 09/16/22 Manager Costing Relationship Specialty Start Date End Date Kathy Vyas MD [address] [place] [address] PCP - General Family Medicine 09/16/22 Manager Costing Relationship Specialty Start Date End Date Kathy Vyas MD [address] [place], [place] [id number] PCP - General Family Medicine 09/16/22 Manager Costing Relationship Specialty Start Date End Date Kathy Vyas MD [address] [place], [place] [id number] PCP - General Family Medicine 09/16/22 Team Status: Active Member Role/Relationship Status Dates Dr. Kathy Vyas MD Primary Care Provider Active Team Status: Inactive Member Role/Relationship Status Dates Dr. Kathy Vyas MD Primary Care Provider Active Start: November 15, 2024 End: November 15, 2024 Tara Parks CNM Attending Provider Active St art: November 15, 2024 End: November 15, 2024 Tara Parks CNM Referring Provider Active St art: November 15, 2024 End: November 15, 2024 Manager Costing Relationship Specialty Start Date End Date Kathy Vyas MD [address] [place] [address] PCP - General Family Medicine 09/16/22 Manager Costing Relationship Specialty Start Date End Date Kathy Vyas MD [address] [place] [address] PCP - General Family Medicine 09/16/22 Manager Costing Relationship Specialty Start Date End Date Kathy Vyas MD [address] [place], [place] [id number] PCP - General Family Medicine 09/16/22 Manager Costing Relationship Specialty Start Date End Date Kathy Vyas MD [address] [place] [address] PCP - General Family Medicine 09/16/22 Goals (unrecognized section and content) Goals may be documented in a n alternate sectionGoals may be documented in an alternate sectionGoals may be documented in an alternate section INFORMATION SOURCE (unrecogn ized section and content) DATE CREATED AUTHOR 11/23/2024 [facility] [place] DATE CREATED AUTHOR AUTHOR'S ORGANIZ ATION 11/26/2024 [facility] FOR RECORDS PERTAINING TO PATIENTS WHO ARE OR HAVE BEEN ENROLLED IN A CHEMICAL DEPENDENCY/SUBSTANCEABUSE PROGRAM, SOME INFORMATION MAY BE OMITTED. This clinical summary was aggregated from multiple sources. Caution should be exercised in using it in the provision of clinical care. This summary normalizes information from multiple sources, and as a consequence, information in this document may materially change the coding, format and clinical context of patient data. In addition, data may be omitted in some cases. CLINICAL DECISIONS SHOULD BE BASED ON THE PRIMARY CLINICAL RECORDS. [employer] [facility]. provides no warranty or guarantee of the accuracy or completeness of information in this document.
--- NOTE | 2024-11-28 09:33 | PCM.HP.OB ---
HPI - General General Date of Admission: 11/28/24 Date of Service: 11/28/24 Chief Complaint: labor HPI Narrative HERB MORAN, is a 34 F who presents in active labor. Baby is breech. 4-5cm/90%. rosmery q 6 Maternal Data Information Final EDIL: 12/04/24 Gestational age: 39+1 PFSH PFS Medical History (spontaneous vaginal delivery) History of premature rupture of membranes (PPROM) Pre-eclampsia Gestational diabetes Home Medications ?Medication ?Instructions ?Recorded ?Last Taken ?Type clindamycin 1.2 % (1 % 1 applic topical DAILY 09/16/22 Unknown History base)-benzoyl peroxide 5 % topical gel Held on 11/15/24. Instructions: Order Completed desogestrel-e.estradiol 0.15 1 tab PO DAILY 09/16/22 Unknown History mg-0.02 mg(21)/e.estrad 0.01 mg(5) tablet (Kariva (28)) Held on 11/15/24. Instructions: Order Completed naproxen 500 mg tablet (Naprosyn) 500 mg PO BID PRN pain 5 days #10 09/16/22 Unknown Rx Held on 11/15/24. tabs Instructions: MD Ordered aspirin 81 mg tablet 81 mg PO DAILY 11/15/24 11/14/24 History ferrous sulfate 325 mg (65 mg 325 mg PO DAILY 11/15/24 Unknown History iron) tablet (Feosol) vit no.95-ferrous 1 tab PO DAILY 11/15/24 11/14/24 History fumarate 28 mg-folic acid 800 mcg tablet () vitamin no.102-iron 90 cap PO 11/15/24 Unknown History mg-folate 1 mg-dha 200 mg capsule Allergy/AdvReac Type Severity Reaction Status Date / Time Sulfa (Sulfonamide Allergy Hives Verified 11/15/24 11:06 Antibiotics) Social History Smoking Status: Never smoker History 3 Elective abortions Hx Para 2 Spontaneous abortions Hx # Term Pregnancies Ectopic pregnancies Hx # Pregnancies Multiple births # of living children NST FHR Rate Baby A Baseline: 145 Variability:: Moderate Accelerations:: 15 x 15 Decelerations:: None FHR Category:: Category I Uterine Activity:: q6 ROS Constitutional Constitutional: Denies fatigue, fever(s) or malaise Eyes Eyes: Denies change in vision ENT HEENT: Denies dizziness or headache(s) Cardiovascular Cardiovascular: Denies chest pain, dyspnea or lightheadedness Respiratory/Chest Respiratory/Chest: Denies cough or dyspnea Gastrointestinal Gastrointestinal: Denies change in bowel habits Genitourinary Genitourinary: Denies burning urination or genital lesions Integumentary Integumentary: Denies rash Neurologic Neurologic: Denies confusion, dizziness, headache(s), numbness or weakness Vital Signs Vital Signs Vital Signs: 11/28/24 09:26 11/28/24 09:26 11/28/24 09:27 Pulse Rate 82 83 Blood Pressure 155/90 H BP Systolic 155 BP Diastolic 90 Pulse Ox 11/28/24 09:27 Pulse Rate Blood Pressure BP Systolic BP Diastolic Pulse Ox 98 Physical Exam Const alert and no apparent distress General Appearance: cooperative HEENT normocephalic Resp normal respiratory effort Cardio regular rate GI soft to palpation GI Narrative: gravid, nontender, appropriate for gestational age Extremity no calf tenderness General Extremity: edema Skin no wounds Rashes: No rashes noted Psych activity/motor behavior normal Labs Labs Labs: Blood Type A POSITIVE Antibody Screen NEGATIVE Hct 38.6 % (37-47) Hgb 12.6 g/dL (12.0-15.0) Group B Strep DNA Negative (Negative) Rhogam given: No Assessment & Plan (1) Complete breech: QUALIFIERS: Fetus number: single or unspecified fetus Qualified Code(s): O32.1XX0 - Maternal care for breech presentation, not applicable or unspecified (2) 39 weeks gestation of : (3) Active labor: PLAN: Plan Primary c-sectin for breech
--- OUTSIDE RECORDS SUMMARY | 2024-11-28 09:33 | XMS RPT_ITS | CCD ---
Author Organization [facility] CliniSysd Care Team Providers Care Sas Programmer Analyst Name Role Phone Min Bermeo DO Primary Care Provider Dorys tootie Vyas MD, Kathy Medel Primary Care Provider Kathy Vyas MD Primary Care Provider Kathy Vyas MD Primary Care Provider Dr. Kathy Vyas MD Primary Care Provider Tara Parks CNM Attending Provider Tara Parks CNM Referring Provider [phone] Dante Waiet Admitting Unavailable Dante Waite Attending Unavailable Miedel, Kathy Primary Care Unavailable Tara Parks Referring Unavailable Miedel, Kathy Primary Care Unavailable Tara Parks Attending Unavailable MIEDEL, KATHY E Primary Care Unavailable DANTE WAITE Attending Unavailable MIEDEL, KATHY E Primary Care Unavailable DANET WAITE Attending Unavailable MIEDEL, KATHY E Primary [...] (1 source) Sulfonamides (Antibiotic) Drug Allergy 2 [facility] Work Phone: (20 sources) Sulfonamides (Antibiotic); Translations: [SULFA (SULFONAMIDE ANTIBIOTICS)] Drug Intolerance 2 [facility] Work Phone: (4 sources) Sulfonamides (Antibiotic) Allergy to substance 2 [facility] (1 source) Sulfonamides (Antibiotic) Drug allergy (disorder) 5 [facility] Repository Medications Current Medications Medication Drug [...] EC tablet Indications: with uncertain dates, antepartum ([facility]) , Encounter for supervision of normal in multigravida ([facility]) Take 1 tablet by mouth once daily. [...] dose. Iron (1 source) Start: 11-16-19 Pnv 666-Escx-Ssrnjm-Dha 90 mg iron- 1 mg-200 mg capsule [...] (Normalized) Sig (Original) 1 ml HYDROXYprogesterone caproate (assisted) 250 mg/ml injection (1 source) Start: 2 End: HYDROXYprogesterone caproate (PF) 250 mg injection (LINDA) Start: 08-17-2021 End: 08-17-2021 HYDROXYprogesterone caproate (PF) 250 mg injection (LINDA) Polyethylene Glycols (20 sources) End: 10-10-2023 polyethylene glycol 3350 ([place] RALAX ORAL) Take by mouth. 10/10/2023 Discontinued End: 10-10-2023 polyethylene glycol 3350 ([place] RALAX ORAL) Take by mouth. 0 10/10/2023 Discontinued polyethylene gly col 3350 (MIRALAX ORAL) Take by mouth. 0 Active Comment on above: Take by mouth. Rpguqxbq-Xh-Myw-Fe- FA ( VITAMIN) tab (20 sources) End: 10-10-2023 take 1 tablet by mouth once Xyomvbcn-Wr-Zoz-Fe-FA ( VITAMIN) tab Take 1 tablet by mouth. 10/10/2023 Discontinued End: 10-10-2023 take 1 tablet by mouth once Jbctwmsf-Ol-Ury-Fe-FA ( VITAMIN) tab Take 1 tablet by mouth. 0 10/10/2023 Discontinued take 1 tablet by garrett th once Abriohic-Sc-Ozb-Fe-FA ( VITAMIN) tab Take 1 tablet by [...] Translations: [Hx of preeclampsia, prior , currently ([facility])] Onset: 04-19-2024 Episodic Other complications of (1 source) Supervision of high risk , unspecified, second trimester; Translations: [Supervision of high risk in second trimester ([facility])] Onset: 07-21-2024 Episodic Other and delivery including [...] of ; Translations: [24 weeks gestation of ([facility])] Onset: 08-18-2024 Episodic Residual codes; unclassified (2 sources) 9 weeks gestation of ; Translations: [9 weeks gestation of ([facility])] Onset: 06-02-2024 Episodic Residual codes; unclassified (1 source) Less than 8 weeks gestation of ; Translations: [7 weeks gestation of ] Onset: 05-04-2024 Episodic Results Test Name Value Interpretation Reference Range Facil ity URINE OB DIP B/Oon Glucose Ql (U) Negative Neg mg/dL [facility] Interpretation and review of laboratory results Normal [facility] Protein.monoclonal (U) [Mass/Vol] Negative Neg mg/dL [facility] HISTORY PHYSICALon HISTORY PHYSICAL HNO ID: [id number] Author: DANET WAITE MD Service: ? Author Type: Physician [...] Acne Anemia Gestational diabetes mellitus, class A1 ([facility]) 11/22/2019 Hx of preeclampsia, prior , currently ([facility]) 04/19/2024 Preeclampsia ([facility]) PAST SURGICAL HISTORY Procedure Laterality Date EXTRACTION [...] Grandfather Leukemia Maternal Grandfather Heart Paternal Grandmother [place] Stroke Paternal Grandmother Heart Paternal Grandfather 48 [...] medications and allergies Dante Waite M.D. Normal [facility] OB Triage Physician Noteon 0 11-15-2024 OB Triage Physician Note [facility] Medical Records Department [address] [place] [address] OB Triage Physician Note 11/15/24 1249 MR#: [id number] Acct: [id number] Name: HERB MORAN Rep #: [id number] : 1990 34 From: Dante Waite MD PCP: Dr. Kathy Vyas MD Status:REG CLI Y Location: [place] [address] HPI - General General Date of Admission: 11/15/24 Date of Service: 11/15/24 Chief Complaint: breech HPI Narrative HERB MORAN, is a 34 F who presents Maternal Data Information Final EDIL: 12/02/24 Gestational age: 37 4/7 PFSH [facility] Medical History (Updated 11/15/24 @ 12:51 by [...] MD; Dr. Dante Waite MD Signed Normal [facility] URINE OB DIP B/Oon 5 Glucose Ql (U) Negative Neg mg/dL [facility] Interpretation and review of laboratory results Normal [facility] Protein.monoclonal (U) [Mass/Vol] Negative Neg mg/dL [facility] ROUTINE, GROUP B ST REPTOCOCCUS BY PCRon 11-10-2024 ROUTINE, GROUP B STREPTOCOCCUS BY PCR Not detected Normal [facility] Comment on above: Performed By: #### G BPCR ####[facility] LABCLIA [id number] [address] STATES OF [facility] URINE OB DIP B/Oon 5 Glucose Ql (U) Negative Neg mg/dL [facility] Interpretation and review of laboratory results Normal [facility] Protein.monoclonal (U) [Mass/Vol] Negative Neg mg/dL [facility] URINE OB DIP B/Oon 5 Glucose Ql (U) Negative Neg mg/dL [facility] Interpretation and review of laboratory results Normal [facility] Protein.monoclonal (U) [Mass/Vol] Negative Neg mg/dL [facility] CNPNon 10-04-2024 CNPN Telephone (OBGYWM) HERB MORAN ([id number]) 1990 F Date Time Provider Department 10/04/24 DANTE WAITE During your visit today, we recorded the following information about you: Mare Larios RN 10/04/2024 8:50 AM Signed Received breast pump RX from [employer]. To RR to sign. GISSELLE Ocampo Tara, [...] Status:Closed by CEM BACK on 6/23/25 Normal [facility] Bacteria Ur Culton Bacteria identified Cx Nom (U) ORGANISM ID: 1 10,000 -<50,000 CFU/ml Normal urogenital leandro Normal [facility] Comment on above: Performed By: #### 6 30-4 ####[facility] LABCL[facility] [id number] [address] [place] CBC W Auto Differential pane l (Bld)on 09-27-2024 Basophils (Bld) [#/Vol] 0.03 10*3/uL [facility] Basophils/100 WBC (Bld) 0.3 % [facility] Differential cell count method Nom (Bld) Auto [facility] Eosinophils (Bld) [#/Vol] 0.21 10*3/uL [facility] Eosinophils/100 WBC (Bld) 2 % [facility] Erythrocyte distribution width (RBC) [Ratio] 15.9 % High 11.5 - 15.0 % [facility] Hematocrit (Bld) [Volume fraction] 32.5 % Low 36.0 - 46.0 % [facility] Hemoglobin (Bld) [Mass/Vol] 10.7 g/dL Low 11.5 - 15.5 g/dL [facility] Immature granulocytes (Bld) [#/Vol] 0.12 10*3/uL High [facility] Immature granulocytes/100 WBC (Bld) 1.1 % [facility] Interpretation and review of laboratory results Abnormal [facility] Lymphocytes (Bld) [#/Vol] 2.17 10*3/uL [facility] Lymphocytes/100 WBC (Bld) 20.4 % [facility] MCH (RBC) [Entitic mass] 27.4 pg 26.0 - 34.0 pg [facility] MCHC (RBC) [Mass/Vol] 32.9 g/dL 30.5 - 36.0 g/dL [facility] MCV (RBC) [Entitic vol] 83.1 fL 80.0 - 100.0 fL [facility] Monocytes (Bld) [#/Vol] 0.87 10*3/uL High [facility] Monocytes/100 WBC (Bld) 8.2 % [facility] Neutrophils (Bld) [#/Vol] 7.26 10*3/uL [facility] Neutrophils/100 WBC (Bld) 68 % [facility] Nucleated RBC (Bld) [#/Vol] NINF [facility] Nucleated RBC/100 WBC (Bld) [Ratio] 0 % /100 WBC [facility] Platelet mean volume (Bld) [Entitic vol] 8.9 fL Low 9.0 - 12.7 fL [facility] Platelets (Bld) [#/Vol] 333 10*3/uL [facility] RBC (Bld) [#/Vol] 3.91 10*6/uL 3.90 - 5.2 0 m/uL [facility] WBC (Bld) [#/Vol] 10.66 10*3/uL [facility] Basophils (Bld) [#/Vol] 0.03 10*3/uL Normal <0.11 [facility] Comment on above: Order Comment: Speci men Type: BLOOD SPECIMENOrdering Facility: [facility] Address: [address] [place] [address] Performed By: #### 5 7021-8 ####[facility] [id number] [place] [address] [place] Basophils/100 WBC (Bld) 0.3 % Normal [facility] Comment on above: Order Comment: Speci men Type: BLOOD SPECIMENOrdering Facility: [facility] Address: [address] [place] [address] Performed By: #### 5 7021-8 ####[facility] [id number] [place] [address] [place] Differential cell count method Nom (Bld) Auto Normal [facility] Comment on above: Order Comment: Speci men Type: BLOOD SPECIMENOrdering Facility: [facility] Address: [address] [place] [address] Performed By: #### 5 7021-8 ####[facility] [id number] [place] [address] [place] Eosinophils (Bld) [#/Vol] 0.21 10*3/uL Normal <0.46 [facility] Comment on above: Order Comment: Speci men Type: BLOOD SPECIMENOrdering Facility: [facility] Address: [address] [place] [address] Performed By: #### 5 7021-8 ####[facility] FLORIDANCLI [id number] [place] [address] [place] Eosinophils/100 WBC (Bld) 2.0 % Normal [facility] Comment on above: Order Comment: Speci men Type: BLOOD SPECIMENOrdering Facility: [facility] Address: [address] [place] [address] Performed By: #### 5 7021-8 ####[facility] [id number] [place] [address] [place] Erythrocyte distribution width (RBC) [Ratio] 15.9 % High 11.5-15.0 [facility] Comment on above: Order Comment: Speci men Type: BLOOD SPECIMENOrdering Facility: [facility] Address: [address] [place] [address] Performed By: #### 5 7021-8 ####[facility] [id number] [place] [address] [place] Hematocrit (Bld) [Volume fraction] 32.5 % Low 36.0-46.0 [facility] Comment on above: Order Comment: Speci men Type: BLOOD SPECIMENOrdering Facility: [facility] Address: [address] [place] [address] Performed By: #### 5 7021-8 ####[facility]CL[facility] [id number] [place] [address] [place] Hemoglobin (Bld) [Mass/Vol] 10.7 g/dL Low 11.5-15.5 [facility] Comment on above: Order Comment: Speci men Type: BLOOD SPECIMENOrdering Facility: [facility] Address: [address] [place] [address] Performed By: #### 5 7021-8 ####[facility] MILLJAMESWNCLIA [id number] [place] [address] [place] Immature granulocytes (Bld) [#/Vol] 0.12 10*3/uL High <0.10 [facility] Comment on above: Order Comment: Speci men Type: BLOOD SPECIMENOrdering Facility: [facility] Address: [address] [place] [address] Performed By: #### 5 7021-8 ####[facility] SAMIRWNCLIA [id number] [place] [address] [place] Immature granulocytes/100 WBC (Bld) 1.1 % Normal [facility] Comment on above: Order Comment: Speci men Type: BLOOD SPECIMENOrdering Facility: [facility] Address: [address] [place] [address] Performed By: #### 5 7021-8 ####[facility] SAMIRWNCLIA [id number] [place] [address] [place] Lymphocytes (Bld) [#/Vol] 2.17 10*3/uL Normal 1.00-4.00 [facility] Comment on above: Order Comment: Speci men Type: BLOOD SPECIMENOrdering Facility: [facility] Address: [address] [place] [address] Performed By: #### 5 7021-8 ####[facility] MILLTOWNCLIA [id number] [place] [address] [place] Lymphocytes/100 WBC (Bld) 20.4 % Normal [facility] Comment on above: Order Comment: Speci men Type: BLOOD SPECIMENOrdering Facility: [facility] Address: [address] [place] [address] Performed By: #### 5 7021-8 ####[facility] MILLWNCLIA [id number] [place] [address] [place] MCH (RBC) [Entitic mass] 27.4 pg Normal 26.0-34.0 [facility] Comment on above: Order Comment: Speci men Type: BLOOD SPECIMENOrdering Facility: [facility] Address: [address] [place] [address] Performed By: #### 5 7021-8 ####[facility] [id number] [place] [address] [place] MCHC (RBC) [Mass/Vol] 32.9 g/dL Normal 30.5-36.0 [facility] Comment on above: Order Comment: Speci men Type: BLOOD SPECIMENOrdering Facility: [facility] Address: [address] [place] [address] Performed By: #### 5 7021-8 ####[facility] [id number] [place] [address] [place] MCV (RBC) [Entitic vol] 83.1 fL Normal 80.0-100.0 [facility] Comment on above: Order Comment: Speci men Type: BLOOD SPECIMENOrdering Facility: [facility] Address: [address] [place] [address] Performed By: #### 5 7021-8 ####[facility] [id number] [place] [address] [place] Monocytes (Bld) [#/Vol] 0.87 10*3/uL High <0.87 [facility] Comment on above: Order Comment: Speci men Type: BLOOD SPECIMENOrdering Facility: [facility] Address: [address] [place] [address] Performed By: #### 5 7021-8 ####[facility] [id number] [place] [address] [place] Monocytes/100 WBC (Bld) 8.2 % Normal [facility] Comment on above: Order Comment: Speci men Type: BLOOD SPECIMENOrdering Facility: [facility] Address: [address] [place] [address] Performed By: #### 5 7021-8 ####[facility] [id number] [place] [address] [place] Neutrophils (Bld) [#/Vol] 7.26 10*3/uL Normal 1.45-7.50 [facility] Comment on above: Order Comment: Speci men Type: BLOOD SPECIMENOrdering Facility: [facility] Address: [address] [place] [address] Performed By: #### 5 7021-8 ####[facility] [id number] [place] [address] [place] Neutrophils/100 WBC (Bld) 68.0 % Normal [facility] Comment on above: Order Comment: Speci men Type: BLOOD SPECIMENOrdering Facility: [facility] Address: [address] [place] [address] Performed By: #### 5 7021-8 ####[facility] [id number] [place] [address] [place] Nucleated RBC (Bld) [#/Vol] 10*3/uL Normal <0.01 [facility] Comment on above: Order Comment: Speci men Type: BLOOD SPECIMENOrdering Facility: [facility] Address: [address] [place] [address] Performed By: #### 5 7021-8 ####[facility] [id number] [place] [address] [place] Nucleated RBC/100 WBC (Bld) [Ratio] 0.0 /100 WBC Normal [facility] Comment on above: Order Comment: Speci men Type: BLOOD SPECIMENOrdering Facility: [facility] Address: [address] [place], [place] [address] Performed By: #### 5 7021-8 ####[facility] ERNESTINENCASHLEY [id number] [place] [address] [place] Platelet mean volume (Bld) [Entitic vol] 8.9 fL Low 9.0-12.7 [facility] Comment on above: Order Comment: Speci men Type: BLOOD SPECIMENOrdering Facility: [facility] Address: [address] [place] [address] Performed By: #### 5 7021-8 ####[facility] FL[facility]ASH[facility] [id number] [place] [address] [place] Platelets (Bld) [#/Vol] 333 10*3/uL Normal 150-400 [facility] Comment on above: Order Comment: Speci men Type: BLOOD SPECIMENOrdering Facility: [facility] Address: [address] [place] [address] Performed By: #### 5 7021-8 ####[facility] FLORIDANCYOGESHA [id number] [place] [address] [place] RBC (Bld) [#/Vol] 3.91 10*6/uL Normal 3.90-5.20 [facility] Comment on above: Order Comment: Speci men Type: BLOOD SPECIMENOrdering Facility: [facility] Address: [address] [place], [place] [address] Performed By: #### 5 7021-8 ####[facility] FL[facility]CL[facility] [id number] [place] [address] [place] WBC (Bld) [#/Vol] 10.66 10*3/uL Normal 3.70-11.00 [facility] Comment on above: Order Comment: Speci men Type: BLOOD SPECIMENOrdering Facility: [facility] Address: [address] [place] [address] Performed By: #### 5 7021-8 ####[facility] LETTY DAWSONINDIAN WELLSNCLIPrem [id number] [place] [address] [place] Comprehensive metabolic 2000 panelOrdered By: Elizabeth Resendiz on 09-27-2024 Albumin [Mass/Vol] 3.7 g/dL Low 3.9 - 4.9 g/dL Cl [facility] ALP [Catalytic activity/Vol] 124 U/L High 34 - 123 U/L [facility] ALT [Catalytic activity/Vol] 28 U/L 7 - 38 U/L [facility] Anion gap [Moles/Vol] 12 mmol/L 8 - 15 mmol/L [facility] AST [Catalytic activity/Vol] 20 U/L 13 - 35 U/L [facility] Bilirubin [Mass/Vol] mg/dL Low 0.2 - 1.3 mg/dL [facility] Calcium [Mass/Vol] 8.6 mg/dL 8.5 - 10. 2 mg/dL [facility] Chloride [Moles/Vol] 106 mmol/L 98 - 107 mmol/L [facility] CO2 [Moles/Vol] 17 mmol/L Low 22 - 30 mmol/L [facility] Creatinine [Mass/Vol] 0.52 mg/dL Low 0.58 - 0.96 mg/dL [facility] GFR/1.73 sq M.predicted among non-blacks MDRD (S/P/Bld) [Vol rate/Area] 127 mL/min/{1.73_m2} - PINF [facility] Comment on above: Estimated Glomerular Filtration Rate [...] 111 mg/dL High 74 - 99 mg/dL [facility] Comment on above: The [place] Diabete s Association (ADA) provides guidance for [...] Standards of Medical Care in Diabetes 2016, [place] [employer]. Diabetes Care. 2016.39(Suppl 1). Interpretation and review of laboratory results Abnormal [facility] Potassium [Moles/Vol] 3.6 mmol/L Low 3.7 - 5.1 mmol/L [facility] Protein [Mass/Vol] 6.5 g/dL 6.3 - 8.0 g/dL [place] Sodium [Moles/Vol] 135 mmol/L Low 136 - 144 mmol/L [facility] Urea nitrogen [Mass/Vol] 8 mg/dL 7 - 21 mg/dL [facility] Comprehensive metabolic 2000 panelon 09-27-2024 Albumin [Mass/Vol] 3.7 g/dL Low 3.9-4.9 [place] Comment on above: Order Comment: Speci men Type: BLOOD SPECIMENOrdering Facility: [facility] Address: [address] [place] [address] Performed By: #### 2 4323-8 ####[facility] [id number] [place] [address] [place] ALP [Catalytic activity/Vol] 124 U/L High 34-123 [facility] Comment on above: Order Comment: Speci men Type: BLOOD SPECIMENOrdering Facility: [facility] Address: [address] [place] [address] Performed By: #### 2 4323-8 ####[facility] [id number] [place] [address] [place] ALT [Catalytic activity/Vol] 28 U/L Normal 7-38 [facility] Comment on above: Order Comment: Speci men Type: BLOOD SPECIMENOrdering Facility: [facility] Address: [address] [place] [address] Performed By: #### 2 4323-8 ####[facility] LETTY MILLTOWNCLIA [id number] [place] [address] [place] Anion gap [Moles/Vol] 12 mmol/L Normal 8-15 [facility] Comment on above: Order Comment: Speci men Type: BLOOD SPECIMENOrdering Facility: [facility] Address: [address] [place] [address] Performed By: #### 2 4323-8 ####[facility] MILLTOWNCLIA [id number] [place] [address] [place] AST [Catalytic activity/Vol] 20 U/L Normal 13-35 [facility] Comment on above: Order Comment: Speci men Type: BLOOD SPECIMENOrdering Facility: [facility] Address: [address] [place] [address] Performed By: #### 2 4323-8 ####[facility] [id number] [place] [address] [place] Bilirubin [Mass/Vol] mg/dL Low 0.2-1.3 [facility] Comment on above: Order Comment: Speci men Type: BLOOD SPECIMENOrdering Facility: [facility] Address: [address] [place] [address] Performed By: #### 2 4323-8 ####[facility] MILLTOWNCLIA [id number] [place] [address] [place] Calcium [Mass/Vol] 8.6 mg/dL Normal 8.5-10.2 [place] Comment on above: Order Comment: Speci men Type: BLOOD SPECIMENOrdering Facility: [facility] Address: [address] [place], [place] [address] Performed By: #### 2 4323-8 ####[facility] MILLTOWNCLIA [id number] [place] [address] [place] Chloride [Moles/Vol] 106 mmol/L Normal 98-107 [facility] Comment on above: Order Comment: Speci men Type: BLOOD SPECIMENOrdering Facility: [facility] Address: [address] [place] [address] Performed By: #### 2 4323-8 ####[facility] [id number] [place] [address] [place] CO2 [Moles/Vol] 17 mmol/L Low 22-30 [facility] Comment on above: Order Comment: Speci men Type: BLOOD SPECIMENOrdering Facility: [facility] Address: [address] [place] [address] Performed By: #### 2 4323-8 ####[facility] [id number] [place] [address] [place] Creatinine [Mass/Vol] 0.52 mg/dL Low 0.58-0.96 [facility] Comment on above: Order Comment: Speci men Type: BLOOD SPECIMENOrdering Facility: [facility] Address: [address] [place] [address] Performed By: #### 2 4323-8 ####[facility] [id number] [address] OF [facility] Creatinine and Glomerular filtration rate.predicted panel (S/P/Bld) 127 mL/min/1.73m??? Normal >=60 [facility] Comment on above: Order Comment: Speci men Type: BLOOD SPECIMENOrdering Facility: [facility] Address: [address] [place] [address] Result Comment: Ángela mated Glomerular Filtration Rate [...] actual GFR. Performed By: #### 2 4323-8 ####[facility] MILLJAMESWNCLIA [id number] [place] [address] [place] Glucose [Mass/Vol] 111 mg/dL High 74-99 [place] Comment on above: Order Comment: Speci men Type: BLOOD SPECIMENOrdering Facility: [facility] Address: [address] [place] [address] Result Comment: The [place] Diabetes Association (ADA) provides guidance for cutoff [...] Standards of Medical Care in Diabetes 2016, [place] [employer]. Diabetes Care. 2016.39(Suppl 1). Performed By: #### 2 4323-8 ####[facility] SAMIRWNCLIA [id number] [place] [address] [place] Potassium [Moles/Vol] 3.6 mmol/L Low 3.7-5.1 [facility] Comment on above: Order Comment: Speci men Type: BLOOD SPECIMENOrdering Facility: [facility] Address: [address] [place] [id number] Performed By: #### 2 4323-8 ####[facility] SAMIRWNCLIA [id number] [place] [address] [place] Protein [Mass/Vol] 6.5 g/dL Normal 6.3-8.0 [place] Comment on above: Order Comment: Speci men Type: BLOOD SPECIMENOrdering Facility: [facility] Address: [address] [place] [address] Performed By: #### 2 4323-8 ####[facility] FLORIDANCLIA [id number] [place] [address] [place] Sodium [Moles/Vol] 135 mmol/L Low 136-144 [place] Comment on above: Order Comment: Speci men Type: BLOOD SPECIMENOrdering Facility: [facility] Address: [address] [place] [address] Performed By: #### 2 4323-8 ####[facility] [id number] [place] [address] [place] Urea nitrogen [Mass/Vol] 8 mg/dL Normal 7-21 [facility] Comment on above: Order Comment: Speci men Type: BLOOD SPECIMENOrdering Facility: [facility] Address: [address] [place] [address] Performed By: #### 2 4323-8 ####[facility] [id number] [place] [address] [place] UA DIP, URINE (POC)on 2024 BILIRUBIN UA (POCT) Negative Negative [facility] CLARITY UA (POCT) [facility] COLOR UA (POCT) Yellow [facility] GLUCOSE UA (POCT) Negative Negative mg/dL [facility] Hemoglobin Ql (U) Negative [facility] Interpretation and review of laboratory results Abnormal [facility] KETONE UA (POCT) Negative Negative mg/dL [facility] LEUKOCYTES UA (POCT) Trace Abnormal Negative [facility] NITRITE UA (POCT) Negative Negative [facility] PH UA (POCT) 6 4.5 - 8.0 [facility] Protein Ql (U) Trace Abnormal Negative mg/dL [facility] SPECIFIC GRAVITY UA (POCT) 1.02 1.005 - 1.030 [facility] UROBILINOGEN UA (POCT) 0.2 Normal E.U./d L [facility] Location:[facility], [address] [place], [place], [address] [place] [address] POINT OF CARE [facility] CBC W Auto Differential pane l (Bld)on 09-15-2024 Basophils (Bld) [#/Vol] 10*3/uL Normal <0.11 [facility] Comment on above: Order Comment: Speci men Type: BLOOD SPECIMENOrdering Facility: [facility] Address: [address] [place] [address] Performed By: #### 5 7021-8 ####[facility]ITALWCOLIA [id number] [place] [address] [place] Basophils/100 WBC (Bld) 0.2 % Normal [facility] Comment on above: Order Comment: Speci men Type: BLOOD SPECIMENOrdering Facility: [facility] Address: [address] [place] [address] Performed By: #### 5 7021-8 ####[facility] [id number] [place] [address] [place] Differential cell count method Nom (Bld) Auto Normal [facility] Comment on above: Order Comment: Speci men Type: BLOOD SPECIMENOrdering Facility: [facility] Address: [address] [place] [address] Performed By: #### 5 7021-8 ####[facility] [id number] [place] [address] [place] Eosinophils (Bld) [#/Vol] 0.22 10*3/uL Normal <0.46 [facility] Comment on above: Order Comment: Speci men Type: BLOOD SPECIMENOrdering Facility: [facility] Address: [address] [place] [address] Performed By: #### 5 7021-8 ####[facility]BLEL[facility] [id number] [place] [address] [place] Eosinophils/100 WBC (Bld) 2.7 % Normal [facility] Comment on above: Order Comment: Speci men Type: BLOOD SPECIMENOrdering Facility: [facility] Address: [address] [place] [address] Performed By: #### 5 7021-8 ####[facility] [id number] [place] [address] [place] Erythrocyte distribution width (RBC) [Ratio] 14.9 % Normal 11.5-15.0 [facility] Comment on above: Order Comment: Speci men Type: BLOOD SPECIMENOrdering Facility: [facility] Address: [address] [place] [address] Performed By: #### 5 7021-8 ####[facility] SAMIRINDIAN WELLSNCYOGESHPrem [id number] [place] [address] [place] Hematocrit (Bld) [Volume fraction] 31.2 % Low 36.0-46.0 [facility] Comment on above: Order Comment: Speci men Type: BLOOD SPECIMENOrdering Facility: [facility] Address: [address] [place] [address] Performed By: #### 5 7021-8 ####[facility] FLORIDAOSCARA [id number] [place] [address] [place] Hemoglobin (Bld) [Mass/Vol] 10.3 g/dL Low 11.5-15.5 [facility] Comment on above: Order Comment: Speci men Type: BLOOD SPECIMENOrdering Facility: [facility] Address: [address] [place] [address] Performed By: #### 5 7021-8 ####[facility] FLORIDAPETEYLIA [id number] [place] [address] [place] Immature granulocytes (Bld) [#/Vol] 0.06 10*3/uL Normal <0.10 [facility] Comment on above: Order Comment: Speci men Type: BLOOD SPECIMENOrdering Facility: [facility] Address: [address] [place] [address] Performed By: #### 5 7021-8 ####[facility]OSPITALWNCLIA [id number] [place] [address] [place] Immature granulocytes/100 WBC (Bld) 0.7 % Normal [facility] Comment on above: Order Comment: Speci men Type: BLOOD SPECIMENOrdering Facility: [facility] Address: [address] [place] [address] Performed By: #### 5 7021-8 ####[facility] [id number] [place] [address] [place] Lymphocytes (Bld) [#/Vol] 1.61 10*3/uL Normal 1.00-4.00 [facility] Comment on above: Order Comment: Speci men Type: BLOOD SPECIMENOrdering Facility: [facility] Address: [address] [place] [address] Performed By: #### 5 7021-8 ####[facility] [id number] [place] [address] [place] Lymphocytes/100 WBC (Bld) 19.6 % Normal [facility] Comment on above: Order Comment: Speci men Type: BLOOD SPECIMENOrdering Facility: [facility] Address: [address] [place] [address] Performed By: #### 5 7021-8 ####[facility] [id number] [place] [address] [place] MCH (RBC) [Entitic mass] 27.2 pg Normal 26.0-34.0 [facility] Comment on above: Order Comment: Speci men Type: BLOOD SPECIMENOrdering Facility: [facility] Address: [address] [place] [address] Performed By: #### 5 7021-8 ####[facility]IDANCMCK[facility] [id number] [place] [address] [place] MCHC (RBC) [Mass/Vol] 33.0 g/dL Normal 30.5-36.0 [facility] Comment on above: Order Comment: Speci men Type: BLOOD SPECIMENOrdering Facility: [facility] Address: [address] [place] [address] Performed By: #### 5 7021-8 ####[facility]ANCMCK[facility] [id number] [place] [address] [place] MCV (RBC) [Entitic vol] 82.5 fL Normal 80.0-100.0 [facility] Comment on above: Order Comment: Speci men Type: BLOOD SPECIMENOrdering Facility: [facility] Address: [address] [place] [address] Performed By: #### 5 7021-8 ####[facility]ANCMCK[facility] [id number] [place] [address] [place] Monocytes (Bld) [#/Vol] 0.48 10*3/uL Normal <0.87 [facility] Comment on above: Order Comment: Speci men Type: BLOOD SPECIMENOrdering Facility: [facility] Address: [address] [place] [address] Performed By: #### 5 7021-8 ####[facility] [id number] [place] [address] [place] Monocytes/100 WBC (Bld) 5.8 % Normal [facility] Comment on above: Order Comment: Speci men Type: BLOOD SPECIMENOrdering Facility: [facility] Address: [address] [place] [address] Performed By: #### 5 7021-8 ####[facility] [id number] [place] [address] [place] Neutrophils (Bld) [#/Vol] 5.82 10*3/uL Normal 1.45-7.50 [facility] Comment on above: Order Comment: Speci men Type: BLOOD SPECIMENOrdering Facility: [facility] Address: [address] [place] [address] Performed By: #### 5 7021-8 ####[facility] SAMIRDAY [id number] [place] [address] [place] Neutrophils/100 WBC (Bld) 71.0 % Normal [facility] Comment on above: Order Comment: Speci men Type: BLOOD SPECIMENOrdering Facility: [facility] Address: [address] [place] [address] Performed By: #### 5 7021-8 ####[facility] FLORIDAPETEYPrem [id number] [place] [address] [place] Nucleated RBC (Bld) [#/Vol] 10*3/uL Normal <0.01 [facility] Comment on above: Order Comment: Speci men Type: BLOOD SPECIMENOrdering Facility: [facility] Address: [address] [place] [address] Performed By: #### 5 7021-8 ####[facility] FLORIDANCA [id number] [place] [address] [place] Nucleated RBC/100 WBC (Bld) [Ratio] 0.0 /100 WBC Normal [facility] Comment on above: Order Comment: Speci men Type: BLOOD SPECIMENOrdering Facility: [facility] Address: [address] [place] [address] Performed By: #### 5 7021-8 ####[facility] [id number] [place] [address] [place] Platelet mean volume (Bld) [Entitic vol] 8.8 fL Low 9.0-12.7 [facility] Comment on above: Order Comment: Speci men Type: BLOOD SPECIMENOrdering Facility: [facility] Address: [address] [place] [address] Performed By: #### 5 7021-8 ####[facility] FLORIDANCLIA [id number] [place] [address] [place] Platelets (Bld) [#/Vol] 312 10*3/uL Normal 150-400 [facility] Comment on above: Order Comment: Speci men Type: BLOOD SPECIMENOrdering Facility: [facility] Address: [address] [place] [address] Performed By: #### 5 7021-8 ####[facility] FLORIDANCLIA [id number] [place] [address] [place] RBC (Bld) [#/Vol] 3.78 10*6/uL Low 3.90-5.20 [facility] Comment on above: Order Comment: Speci men Type: BLOOD SPECIMENOrdering Facility: [facility] Address: [address] [place] [address] Performed By: #### 5 7021-8 ####[facility] FLORIDANCA [id number] [place] [address] [place] WBC (Bld) [#/Vol] 8.21 10*3/uL Normal 3.70-11.00 [facility] Comment on above: Order Comment: Speci men Type: BLOOD SPECIMENOrdering Facility: [facility] Address: [address] [place] [address] Performed By: #### 5 7021-8 ####[facility] FLORIDANCLIA [id number] [place] [address] [place] Ferritin SerPl-mCncon 2024 Ferritin [Mass/Vol] 8.3 ng/mL Low 14.7-205.1 [facility] Comment on above: Order Comment: Speci men Type: BLOOD SPECIMENOrdering Facility: [facility] Address: [address] [place] [address] Performed By: #### 5 0190-8, 2276- ####[facility] LABCLIA [id number] [place] [id number] [place] GESTATIONAL GLUCOSE SCREEN, 1-HOUR, 50 GRAM, NON-FASTINGon 09-15-2024 Glucose [Mass/Vol] 128 mg/dL Normal 74-134 [place] Comment on above: Order Comment: Speci men Type: BLOOD SPECIMENOrdering Facility: [facility] Address: [address] [place] [address] Result Comment: [facility] Congress of Obstetricians and Gynec[employer] (Mariluz/Mode) guidelines state a gestational diabetes mellitus positive screen is made, in women not previously diagnosed with overt diabetes, when the 1 hr plasma glucose level is equal to or above 140 mg/dL. [facility] [place] recommends a 135 mg/dL cutoff. Performed By: #### G LTGST ####[facility] [id number] [place] [address] [place] Iron and Iron binding capaci ty panelon 09-15-2024 Iron [Mass/Vol] 52 ug/dL Normal 41-186 [facility] Comment on above: Order Comment: Speci men Type: BLOOD SPECIMENOrdering Facility: [facility] Address: [address] [place] [address] Performed By: #### 5 0190-8, 4 ####[facility] LABCLIA [id number] [place] [id number] [place] Iron binding capacity [Mass/Vol] >552 High 232-386 [facility] Comment on above: Order Comment: Speci men Type: BLOOD SPECIMENOrdering Facility: [facility] Address: [address] [place], [place] [address] Performed By: #### 5 0190-8, 2275-07 ####[facility] LABCLIA [id number] [place] [id number] [place] Iron/TIBC [Molar ratio] <9.4 Low 15.0-57.0 [facility] Comment on above: Order Comment: Speci osito Type: BLOOD SPECIMENOrdering Facility: [facility] Address: [address] [place] [address] Performed By: #### 5 0190-8, 2276-4 ####[facility] LABCLIA [id number] [address] [place] Reagin and Treponema pallidu m IgG and IgM [Interp]on 09-15-2024 T. pallidum IgG+IgM IA Ql (S) Non-Reactive Normal Nonreactive [facility] Comment on above: Order Comment: Speci men Type: BLOOD SPECIMENOrdering Facility: [facility] Address: [address] [place] [address] Performed By: #### 7 3752-8 ####[facility] LAB[facility] [id number] [place] [address] [place] Reagin+T pallidum IgG+IgM Se rPl-Impon 09-15-2024 Reagin and Treponema pallidum IgG and IgM [Interp] Cannot exclude recent Treponemal infection if specimen collected within 7-10 days after appearance of suspect lesions or 2-3 weeks after an exposure. Clinical correlation is required. Normal [facility] Comment on above: Order Comment: Aurorai osito Type: BLOOD SPECIMENOrdering Facility: [facility] Address: [address] [place] [address] Performed By: #### 7 3752-8 ####[facility] [id number] [place] [id number] [place] Examination level ultrasound on 06-02-2024 Indication First trimester anatomic survey Impression REMOTE READ The patient is referred for a first trimester anatomy scan including nuchal translucency measurement as clinically indicated. - Single, live, intrauterine . - [place] rump length measurement is consistent with the [...] view: visualized 4-chamber view with color: visualized 6-ukbaue-nplejuo view: normal Abdominal cord insertion: normal Stomach: [...] Read By: Manjula Diaz M.D. MATERNAL MEDICINE [facility] Radiology Study observation (narrative) [facility] CBC W Auto Differential pane l (Bld)on 05-04-2024 Basophils (Bld) [#/Vol] 0.03 10*3/uL Normal <0.11 [facility] Comment on above: Order Comment: Speci men Type: BLOOD SPECIMENOrdering Facility: [facility] Address: [address] [place] [address] Performed By: #### 5 7021-8 ####[facility]ITALWCOLIA [id number] [place] [address] [place] Basophils/100 WBC (Bld) 0.4 % Normal [facility] Comment on above: Order Comment: Speci men Type: BLOOD SPECIMENOrdering Facility: [facility] Address: [address] [place] [address] Performed By: #### 5 7021-8 ####[facility] [id number] [place] [address] [place] Differential cell count method Nom (Bld) Auto Normal [facility] Comment on above: Order Comment: Speci men Type: BLOOD SPECIMENOrdering Facility: [facility] Address: [address] [place] [address] Performed By: #### 5 7021-8 ####[facility] [id number] [place] [address] [place] Eosinophils (Bld) [#/Vol] 0.07 10*3/uL Normal <0.46 [facility] Comment on above: Order Comment: Speci men Type: BLOOD SPECIMENOrdering Facility: [facility] Address: [address] [place] [address] Performed By: #### 5 7021-8 ####[facility] [id number] [place] [address] [place] Eosinophils/100 WBC (Bld) 0.8 % Normal [facility] Comment on above: Order Comment: Speci men Type: BLOOD SPECIMENOrdering Facility: [facility] Address: [address] [place] [address] Performed By: #### 5 7021-8 ####[facility] [id number] [place] [address] [place] Erythrocyte distribution width (RBC) [Ratio] 14.4 % Normal 11.5-15.0 [facility] Comment on above: Order Comment: Speci men Type: BLOOD SPECIMENOrdering Facility: [facility] Address: [address] [place] [address] Performed By: #### 5 7021-8 ####[facility] FLORIDAALIDA [id number] [place] [address] [place] Hematocrit (Bld) [Volume fraction] 36.2 % Normal 36.0-46.0 [facility] Comment on above: Order Comment: Speci men Type: BLOOD SPECIMENOrdering Facility: [facility] Address: [address] [place] [address] Performed By: #### 5 7021-8 ####[facility] PREBLEYOGESHA [id number] [place] [address] [place] Hemoglobin (Bld) [Mass/Vol] 12.0 g/dL Normal 11.5-15.5 [facility] Comment on above: Order Comment: Speci men Type: BLOOD SPECIMENOrdering Facility: [facility] Address: [address] [place] [address] Performed By: #### 5 7021-8 ####[facility] [id number] [place] [address] [place] Immature granulocytes (Bld) [#/Vol] 0.04 10*3/uL Normal <0.10 [facility] Comment on above: Order Comment: Speci men Type: BLOOD SPECIMENOrdering Facility: [facility] Address: [address] [place] [address] Performed By: #### 5 7021-8 ####[facility]OG[facility] [id number] [place] [address] [place] Immature granulocytes/100 WBC (Bld) 0.5 % Normal [facility] Comment on above: Order Comment: Speci men Type: BLOOD SPECIMENOrdering Facility: [facility] Address: [address] [place] [address] Performed By: #### 5 7021-8 ####[facility] [id number] [place] [address] [place] Lymphocytes (Bld) [#/Vol] 1.39 10*3/uL Normal 1.00-4.00 [facility] Comment on above: Order Comment: Speci men Type: BLOOD SPECIMENOrdering Facility: [facility] Address: [address] [place] [address] Performed By: #### 5 7021-8 ####[facility] [id number] [place] [address] [place] Lymphocytes/100 WBC (Bld) 16.4 % Normal [facility] Comment on above: Order Comment: Speci men Type: BLOOD SPECIMENOrdering Facility: [facility] Address: [address] [place] [address] Performed By: #### 5 7021-8 ####[facility] [id number] [place] [address] [place] MCH (RBC) [Entitic mass] 26.7 pg Normal 26.0-34.0 [facility] Comment on above: Order Comment: Speci men Type: BLOOD SPECIMENOrdering Facility: [facility] Address: [address] [place] [address] Performed By: #### 5 7021-8 ####[facility] [id number] [place] [address] [place] MCHC (RBC) [Mass/Vol] 33.1 g/dL Normal 30.5-36.0 [facility] Comment on above: Order Comment: Speci men Type: BLOOD SPECIMENOrdering Facility: [facility] Address: [address] [place] [address] Performed By: #### 5 7021-8 ####[facility] [id number] [place] [address] [place] MCV (RBC) [Entitic vol] 80.4 fL Normal 80.0-100.0 [facility] Comment on above: Order Comment: Speci men Type: BLOOD SPECIMENOrdering Facility: [facility] Address: [address] [place] [address] Performed By: #### 5 7021-8 ####[facility] [id number] [place] [address] [place] Monocytes (Bld) [#/Vol] 0.47 10*3/uL Normal <0.87 [facility] Comment on above: Order Comment: Speci men Type: BLOOD SPECIMENOrdering Facility: [facility] Address: [address] [place] [address] Performed By: #### 5 7021-8 ####[facility] [id number] [place] [address] [place] Monocytes/100 WBC (Bld) 5.5 % Normal [facility] Comment on above: Order Comment: Speci men Type: BLOOD SPECIMENOrdering Facility: [facility] Address: [address] [place] [address] Performed By: #### 5 7021-8 ####[facility] [id number] [place] [address] [place] Neutrophils (Bld) [#/Vol] 6.49 10*3/uL Normal 1.45-7.50 [facility] Comment on above: Order Comment: Speci men Type: BLOOD SPECIMENOrdering Facility: [facility] Address: [address] [place] [address] Performed By: #### 5 7021-8 ####[facility] SAMIRDAY [id number] [place] [address] [place] Neutrophils/100 WBC (Bld) 76.4 % Normal [facility] Comment on above: Order Comment: Speci men Type: BLOOD SPECIMENOrdering Facility: [facility] Address: [address] [place] [address] Performed By: #### 5 7021-8 ####[facility] FLORIDAPETEYPrem [id number] [place] [address] [place] Nucleated RBC (Bld) [#/Vol] 10*3/uL Normal <0.01 [facility] Comment on above: Order Comment: Speci men Type: BLOOD SPECIMENOrdering Facility: [facility] Address: [address] [place] [address] Performed By: #### 5 7021-8 ####[facility]LEPrem [id number] [place] [address] [place] Nucleated RBC/100 WBC (Bld) [Ratio] 0.0 /100 WBC Normal [facility] Comment on above: Order Comment: Speci men Type: BLOOD SPECIMENOrdering Facility: [facility] Address: [address] [place] [address] Performed By: #### 5 7021-8 ####[facility] FLORIDAPETEYLIA [id number] [place] [address] [place] Platelet mean volume (Bld) [Entitic vol] 8.7 fL Low 9.0-12.7 [facility] Comment on above: Order Comment: Speci men Type: BLOOD SPECIMENOrdering Facility: [facility] Address: [address] [place] [address] Performed By: #### 5 7021-8 ####[facility]ITALIND[facility] WELLSNCLIA [id number] [place] [address] [place] Platelets (Bld) [#/Vol] 269 10*3/uL Normal 150-400 [facility] Comment on above: Order Comment: Speci men Type: BLOOD SPECIMENOrdering Facility: [facility] Address: [address] [place] [address] Performed By: #### 5 7021-8 ####[facility] FLORIDANCLIA [id number] [place] [address] [place] RBC (Bld) [#/Vol] 4.50 10*6/uL Normal 3.90-5.20 [facility] Comment on above: Order Comment: Speci men Type: BLOOD SPECIMENOrdering Facility: [facility] Address: [address] [place] [address] Performed By: #### 5 7021-8 ####[facility] FLORIDANCLIA [id number] [place] [address] [place] WBC (Bld) [#/Vol] 8.49 10*3/uL Normal 3.70-11.00 [facility] Comment on above: Order Comment: Speci men Type: BLOOD SPECIMENOrdering Facility: [facility] Address: [address] [place] [address] Performed By: #### 5 7021-8 ####[facility]ORIDANCLIA [id number] [place] [address] [place] Examination level ultrasound on 05-04-2024 Indication dating Impression Maternal Structures: Right Ovary: Size 20 mm x 25 mm x 20 mm Left Ovary: Size 29 mm x 26 mm x 19 mm - Single, live, intrauterine . - An intrauterine gestational sac with a yolk sac and pole is present. - [place] rump length measurement is consistent with the [...] Read By: Dayana Perry M.D. MATERNAL MEDICINE [facility] Radiology Study observation (narrative) [facility] HBV surface Ag Ser Qlon 04-15 HBV surface Ag Ql (S) Negative Normal Negative [facility] Comment on above: Order Comment: Speci men Type: BLOOD SPECIMENOrdering Facility: [facility] Address: [address] [place] [id number] Performed By: #### 7 3752-8, 5195-3, 76916-3 ####[facility] [id number] [place] [address] [place] HCV Ab Ser Qlon 05-04-2024 HCV Ab Ql (S) Negative Normal Negative [facility] Comment on above: Order Comment: Speci men Type: BLOOD SPECIMENOrdering Facility: [facility] Address: [address] [place] [address] Result Comment: The result suggests no evidence of active infection with Hepatitis C virus. Should recent infection be suspected, repeat testing may be considered 4-6 weeks after this draw. Performed By: #### 1 6128-1 ####[facility] LAB[facility] [id number] [place] [address] [place] HIV 1+2 Ab IA Qlon HIV 1 and 2 Ab IA.rapid Nom (S/P/Bld) Normal [facility] Comment on above: Order Comment: Speci men Type: BLOOD SPECIMENOrdering Facility: [facility] Address: [address] [place] [address] Result Comment: Test not indicated. Performed By: #### 7 3752-8, 5195-3, 84162-1 ####[facility] LABIA [id number] [place] [address] [place] HIV 1+2 Ab+HIV1 p24 Ag IA Ql Non-Reactive Normal Nonreactive [facility] Comment on above: Order Comment: Speci men Type: BLOOD SPECIMENOrdering Facility: [facility] Address: [address] [place] [address] Performed By: #### 7 3752-8, 5195-3, 13941-5 ####[facility] LABIA [id number] [place] [address] [place] HIV immunoassay testing algorithm interpretation (S/P/Bld) [Interp] Normal [facility] Comment on above: Order Comment: Speci men Type: BLOOD SPECIMENOrdering Facility: [facility] Address: [address] [place] [address] Result Comment: No e vidence of HIV-1 or HIV-2 infection. Should recent infection be suspected, repeat testing may be considered 2-3 weeks after this draw. [place] Rev. Code 3701.243(E): This information has been [...] diagnoses. Performed By: #### 7 3752-8, 5195-3, 03254-8 ####[facility]CL[facility] [id number] [address] [place] HbA1c (Bld)on 05-04-2024 Average glucose Estimated from glycated hemoglobin (Bld) [Mass/Vol] 97 mg/dL Normal [facility] Comment on above: Order Comment: Speci men Type: BLOOD SPECIMENOrdering Facility: [facility] Address: [address] [place] [address] Result Comment: eAG: (Estimated average glucose) is a calculated value from HgbA1c and is tour sales representative of the average blood glucose level in the last 2-3 month period. Performed By: #### 5 5454-3 ####[facility]CL[facility] [id number] [address] OF [facility] HbA1c (Bld) [Mass fraction] 5.0 % Normal 4.3-5.6 [facility] Comment on above: Order Comment: Speci men Type: BLOOD SPECIMENOrdering Facility: [facility] Address: [address] [place] [address] Result Comment: Amer [place] Diabetes Association guidelines indicate that patients with HgbA1c in the range 5.7-6.4% are at increased risk for development of diabetes, and intervention by lifestyle modification may be beneficial. HgbA1c greater or equal to 6.5% is considered diagnostic of diabetes. Performed By: #### 5 5454-3 ####[facility] LABCL[facility] [id number] [place] [address] [place] RUBELLA IGG ANTIBODYon 05-04 RUBELLA IGG AB, QUAL Positive Normal Positive [facility] Comment on above: Order Comment: Carlie mcneill Type: BLOOD SPECIMENOrdering Facility: [facility] Address: [address] [place] [address] Result Comment: The result suggests recent or past exposure to Rubella virus or history of Rubella vaccination. Positive result may also be seen due to presence of passively-transferred antibodies. Please correlate with patient's history. Performed By: #### R UBIGG ####[facility] [id number] [place] [address] [place] Reagin and Treponema pallidu m IgG and IgM [Interp]on 05-04-2024 T. pallidum IgG+IgM IA Ql (S) Non-Reactive Normal Nonreactive [facility] Comment on above: Order Comment: Speci osito Type: BLOOD SPECIMENOrdering Facility: [facility] Address: [address] [place] [address] Performed By: #### 7 3752-8, 5195-3, 84818-7 ####[facility] LABIA [id number] [place] [address] [place] Reagin+T pallidum IgG+IgM Se rPl-Impon 05-04-2024 Reagin and Treponema pallidum IgG and IgM [Interp] Cannot exclude recent Treponemal infection if specimen collected within 7-10 days after appearance of suspect lesions or 2-3 weeks after an exposure. Clinical correlation is required. Normal [facility] Comment on above: Order Comment: Aurorai osito Type: BLOOD SPECIMENOrdering Facility: [facility] Address: [address] [place] [address] Performed By: #### 7 3752-8, 5195-3, 67904-2 ####[facility] [id number] [place] [address] [place] TYPE + SCREEN PRENATALon ABO A Normal [facility] Comment on above: Order Comment: Speci men Type: BLOOD SPECIMEN [facility] Address: [address] [place] [address] Performed By: #### T SPN #### [facility] CLIA [id number] [address] [place] [address] [place] Rh Nom (Bld) Positive Normal [facility] Comment on above: Order Comment: Speci men Type: BLOOD SPECIMEN [facility] Address: [address] [place] [address] Performed By: #### T SPN #### [facility] CLIA [id number] [address] [place] [address] [place] TYPE AND SCREEN EXPIRATION 05/07/2024 23:59 Normal [facility] Comment on above: Order Comment: Speci men Type: BLOOD SPECIMEN [facility] Address: [address] [place] [address] Performed By: #### T SPN #### [facility] CLIA [id number] [address] [place] [address] [place] Bacteria Ur Culton Bacteria identified Cx Nom (U) ORGANISM ID: 1 10,000 -<50,000 CFU/ml Normal urogenital leandro Normal [facility] Comment on above: Performed By: #### 6 30-4 ####[facility] [id number] [address] [place] C. trachomatis+N. gonorrhoea e DNA LUPIS+probe Ql (Unsp spec)on 04-19-2024 C. trachomatis rRNA LUPIS+probe Ql (Unsp spec) Not detected Normal Not detected [facility] Comment on above: Order Comment: Speci men Type: SWABOrdering Facility: [facility] Address: [address] [place] [address] Performed By: #### 3 6902-5 ####[facility] [id number] [address] [place] N. gonorrhoeae rRNA LUPIS+probe Ql (Unsp spec) Not detected Normal Not detected [facility] Comment on above: Order Comment: Speci men Type: SWABOrdering Facility: [facility] Address: [address] [place] [address] Performed By: #### 3 6902-5 ####[facility] [id number] [address] [place] POC COMMERCIAL APPRAISER ULTRASOUNDon 04-19-19 Indication Confirmation of intrauterine . Confirmation of cardiac activity Impression cardiac activity is visualized, CRL is appropriate for clinical dates, corresponding to EDIL 12/04/24 Recommendations Additional follow-up as clinically indicated. Method Transvaginal ultrasound examination. View: Adequate visualization Maria . Number of embryos: 1 Dating LMP on: 02/28/2024 GA by LMP 7 w + 2 d EDIL by LMP: 12/04/2024 Ultrasound examination on: 04/19/2024 [...] Read By: Mai Blanton CNP MATERNAL MEDICINE [facility] Radiology Study observation (narrative) [facility] Urinalysis complete panel (U )on 03-10-2023 Bacteria LM.HPF (Urine sed) [#/Area] Negative Negative /HPF [facility] Bilirubin Ql (U) Negative Negative [facility] Clarity (Unsp spec) Clear Clear [facility] Color (U) Dark Yellow Abnormal Yellow [facility] Epithelial cells LM.HPF (Urine sed) [#/Area] None Seen [facility] Glucose Test strip (U) [Mass/Vol] Negative Negative [facility] Hemoglobin Ql (U) 1+ Abnormal Negative [facility] Hyaline casts (Urine sed) [#/Area] 0 /[LPF] 0 /LPF [facility] Ketones Ql (U) Negative Negative [facility] Leukocyte esterase Test strip Ql (U) 3+ Abnormal Negative [facility] Nitrite Ql (U) Negative Negative [facility] pH (U) 6.5 [pH] <8.5 [facility] Protein (U) [Mass/Vol] Negative Negative [place] RBC LM.HPF (Urine sed) [#/Area] 6-10 /HPF Abnormal 0-2 /HPF [facility] Specific gravity (U) [Rel density] 1.011 1.005 - 1.030 [facility] Urobilinogen Ql (U) 1.0 EU/dL 0.2-1.0 EU/dL [place] WBC LM.HPF (Urine sed) [#/Area] 11-20 /HPF Abnormal 0-5 /HPF [facility] Absolute lymphocyte countOrd ered By: Dr. Zelaya on 09-16-2022 Lymphocytes Auto (Unsp spec) [#/Vol] 1.84 10*3/uL 0.83-4.51 [facility] Basophil percentageOrdered B y: Dr. Zelaya on 09-16-2022 Basophils/100 WBC (Bld) 0.3 % 0-1 [facility] Bilirubin [Mass/Vol] 0.20 mg/dL 0.20-1.00 [facility] Comment on above: For patients on eltr ombopag therapy, use of Dimension [place] TBIL is not recommended. Chloride [Moles/Vol] 106 mmol/L 98-107 [facility] Eosinophils/100 WBC (Bld) 0.5 % 0-5 [facility] Glucose [Mass/Vol] 92 mg/dL 74-106 [facility] Neutrophils (Bld) [#/Vol] 10.9 10*3/uL 2.0-7.7 [facility] Neutrophils/100 WBC (Bld) 81.2 % 47-70 [facility] Potassium [Moles/Vol] 4.1 mmol/L 3.5-5.1 [facility] Protein [Mass/Vol] 8.2 g/dL 6.4-8.2 [facility] Sodium [Moles/Vol] 136 mmol/L 136-145 [facility] WBC (Bld) [#/Vol] 13.4 10*3/uL 4.4-11.0 [facility] Blood erythrocytes count (nu mber/volume)Ordered By: Dr. Zelaya on 09-16-2022 RBC (Bld) [#/Vol] 4.61 10*6/uL 4.2-5.4 [facility] Blood hemoglobin measurement (mass/volume)Ordered By: Dr. Zelaya on 09-16-2022 Hemoglobin (Bld) [Mass/Vol] 12.6 g/dL 12.0-15.0 [facility] Blood lymphocytes/100 leukoc ytesOrdered By: Dr. Zelaya on 09-16-2022 Lymphocytes/100 WBC (Bld) 13.7 % 19-41 [facility] Blood monocytes/100 leukocyt esOrdered By: Dr. Zelaya on 09-16-2022 Monocytes/100 WBC (Bld) 4.0 % 0-10 [facility] Blood platelet mean volumeOr dered By: Dr. Zelaya on 09-16-2022 Platelet mean volume (Bld) [Entitic vol] 8.5 fL 6.2-12.0 [facility] Determination of erythrocyte mean corpuscular volume (MCV)Ordered By: Dr. Zelaya on 09-16-2022 MCV (RBC) [Entitic vol] 83.7 fL 81-99 [facility] Hematocrit Auto (Bld) [Volum e fraction]Ordered By: Dr. Zelaya on 09-16-2022 Hematocrit (Bld) [Volume fraction] 38.6 % 37-47 [facility] Laboratory - Chemistry and C hemistry - challengeOrdered By: Dr. Zelaya on 09-16-2022 ALP [Catalytic activity/Vol] 78 U/L 45-117 [facility] ALT [Catalytic activity/Vol] 19 U/L 13-56 [facility] CO2 [Moles/Vol] 23.0 mmol/L 21.0-32.0 [facility] Globulin (S) [Mass/Vol] 4.6 g/dL 2.2-4.2 [facility] Urea nitrogen/Creatinine [Mass ratio] 14.6 mg/mg 10-20 [facility] Laboratory - Hematology and Cell countsOrdered By: Dr. Zelaya on 09-16-2022 Erythrocyte distribution width (RBC) [Entitic vol] 41.5 fL 35.1-43.9 [facility] Erythrocyte distribution width (RBC) [Ratio] 13.5 % 11.6-14.6 [facility] Immature granulocytes/100 WBC (Bld) 0.300 % 0.0-0.9 [facility] Comment on above: IG% - Immature Granu locytes (promyelocytes, myelocytes and metamyelocytes) > 1% indicates that a LEFT SHIFT is Present. MCH (RBC) [Entitic mass] 27.3 pg 27.0-32.0 [facility] Nucleated RBC/100 WBC (Bld) [Ratio] 0 % 0-5 [facility] MCHC Auto (RBC) [Mass/Vol]Or dered By: Dr. Zelaya on 09-16-2022 MCHC (RBC) [Mass/Vol] 32.6 g/dL 32-36 [facility] No Panel InformationOrdered By: Dr. Zelaya on 09-16-2022 D-Dimer Quantitative (PE/DVT) 0.29 FEU/ug/m 0.27-0.49 [facility] Comment on above: NORMAL D-Dimer level (<0.50) indicates no DVT or PE. Estimated Creatinine Clearance Calc 113.25 ml/min [facility] Estimated GFR (MDRD) Amer 129 mL/min >60 [facility] Comment on above: GFR Calc Estimated GFR (MDRD) Non-Af Amer 107 mL/min >60 [facility] Comment on above: Non- GFR Calc Troponin I High Sensitivity < 3 pg/mL 3.0-54.0 [facility] Comment on above: Please Note: New [place] t Units and Gender Specific Reference Ranges. For more information see Policy Stat Procedure [place] High Sensitivity Troponin (TNIH) and attachments. Platelets bldOrdered By: Dr. Zelaya on 09-16-2022 Platelets (Bld) [#/Vol] 367 10*3/uL 150-450 [facility] Serum or plasma albumin magda urement (mass/volume)Ordered By: Dr. Zelaya on 09-16-2022 Albumin [Mass/Vol] 3.6 g/dL 3.2-5.0 [facility] Serum or plasma albumin/glob ulin mass ratioOrdered By: Dr. Zelaya on 09-16-2022 Albumin/Globulin [Mass ratio] 0.8 {ratio} 0.9-2.4 [facility] Serum or plasma calcium magda urement (mass/volume)Ordered By: Dr. Zelaya on 09-16-2022 Calcium [Mass/Vol] 9.4 mg/dL 8.5-10.1 [facility] Serum or plasma creatinine m easurement (mass/volume)Ordered By: Dr. Zelaya on 09-16-2022 Creatinine [Mass/Vol] 0.68 mg/dL 0.55-1.02 [facility] Comment on above: The validity of the calculated GFR & GFRAA in patients over 70 years has not been determined. Clinical correlation is essential. Serum or plasma urea nitroge n measurement (mass/volume)Ordered By: Dr. Zelaya on 09-16-2022 Urea nitrogen [Mass/Vol] 10 mg/dL 7-18 [facility] Thin prep Papanicolaou smear with manual screeningOrdered By: Dr. Zelaya on 09-16-2022 Thin prep Papanicolaou smear with manual screening 11 U/L 15-37 [facility] Thin prep Papanicolaou smear with manual screening 7 5-15 [facility] XR CHEST 2V FRONTAL/LATon [facility] XR Chest PA and Lateralon IMPRESSION: No acute radiographic abnormality. Management Internship: PSYCHIATRICB Transcribe Date/Time: Sep 16 2022 9:37A Dictated by : AMARIS DHILLON MD This examination was interpreted and the report reviewed and electronically signed by: AMARIS DHILLON MD on Sep 16 2022 9:37AM [facility] DIVISION OF RADIOLOGY * * *Final Report* [...] Unremarkable. DIVISION OF RADIOLOGY Provider, Lian Jenny [facility] - 09/16/2022 * * *Final Report* * [...] Unremarkable. IMPRESSION IMPRESSION: No acute radiographic abnormality. Management Internship: PSCB Transcribe Date/Time: Sep 16 2022 9:37A Dictated by : AMARIS DHILLON MD This examination was interpreted and the report reviewed and electronically signed by: AMARIS DHILLON MD on Sep 16 2022 9:37AM EST [facility] Radiology Study observation (narrative) [facility] XR Chest PA and LateralOrder ed By: [facility] Provider on 09-16-2022 [facility] Glucose Glucometer (BldC) [M ass/Vol]on 01-05-2022 Glucose [Mass/Vol] 99 mg/dL 74-106 [facility] Work Phone: Comment on above: MANAGEMENT OF PATIEN T CARE PER NURSING PROTOCOL Absolute lymphocyte counton 01-04-2022 Lymphocytes Auto (Unsp spec) [#/Vol] 1.74 10*3/uL 0.83-4.51 [facility] Work Phone: Basophil percentageon 2021 Basophils/100 WBC (Bld) 0.2 % 0-1 [facility] Work Phone: [phone] Eosinophils/100 WBC (Bld) 1.5 % 0-5 [facility] Work Phone: Neutrophils (Bld) [#/Vol] 8.3 10*3/uL 2.0-7.7 [facility] Work Phone: [phone] Neutrophils/100 WBC (Bld) 75.4 % 47-70 [facility] Work Phone: [phone] WBC (Bld) [#/Vol] 11.0 10*3/uL 4.4-11.0 [facility] Work Phone: [phone] Blood erythrocytes count (nu mber/volume)on 01-04-2022 RBC (Bld) [#/Vol] 4.34 10*6/uL 4.2-5.4 [facility] Work Phone: [phone] Blood hemoglobin measurement (mass/volume)on 01-04-2022 Hemoglobin (Bld) [Mass/Vol] 12.0 g/dL 12.0-15.0 [facility] Work Phone: [phone] Blood lymphocytes/100 leukoc yteson 01-04-2022 Lymphocytes/100 WBC (Bld) 15.9 % 19-41 [facility] Work Phone: Blood monocytes/100 leukocyt eson 01-04-2022 Monocytes/100 WBC (Bld) 6.5 % 0-10 [facility] Work Phone: [phone] Blood platelet mean volumeon 01-04-2022 Platelet mean volume (Bld) [Entitic vol] 10.3 fL 6.2-12.0 [facility] Work Phone: Determination of erythrocyte mean corpuscular volume (MCV)on 01-04-2022 MCV (RBC) [Entitic vol] 83.6 fL 81-99 [facility] Work Phone: Hematocrit Auto (Bld) [Volum e fraction]on 01-04-2022 Hematocrit (Bld) [Volume fraction] 36.3 % 37-47 [facility] Work Phone: Laboratory - Hematology and Cell countson 01-04-2022 Erythrocyte distribution width (RBC) [Entitic vol] 47.8 fL 35.1-43.9 [facility] Work Phone: Erythrocyte distribution width (RBC) [Ratio] 15.9 % 11.6-14.6 [facility] Work Phone: Immature granulocytes/100 WBC (Bld) 0.500 % 0.0-0.9 [facility] Work Phone: Comment on above: IG% - Immature Granu locytes (promyelocytes, myelocytes and metamyelocytes) > 1% indicates that a LEFT SHIFT is Present. MCH (RBC) [Entitic mass] 27.6 pg 27.0-32.0 [facility] Work Phone: [phone] Nucleated RBC/100 WBC (Bld) [Ratio] 0 % 0-5 [facility] Work Phone: MCHC Auto (RBC) [Mass/Vol]on 01-04-2022 MCHC (RBC) [Mass/Vol] 33.1 g/dL 32-36 [facility] Work Phone: Platelets bldon 01-04-2022 Platelets (Bld) [#/Vol] 290 10*3/uL 150-450 [facility] Work Phone: URINE OB DIP B/Oon 2 Glucose Ql (U) Negative Neg mg/dL [facility] Protein.monoclonal (U) [Mass/Vol] Negative Neg mg/dL [facility] URINE OB DIP B/Oon 2 Glucose Ql (U) Negative Neg mg/dL [facility] Protein.monoclonal (U) [Mass/Vol] Negative Neg mg/dL [facility] URINE OB DIP B/Oon 2 Glucose Ql (U) Negative Neg mg/dL [facility] Protein.monoclonal (U) [Mass/Vol] Negative Neg mg/dL [facility] Absolute lymphocyte counton 12-06-2021 Lymphocytes Auto (Unsp spec) [#/Vol] 1.96 10*3/uL 0.83-4.51 [facility] Work Phone: Basophil percentageon 2021 Basophils/100 WBC (Bld) 0.2 % 0-1 [facility] Work Phone: [phone] Eosinophils/100 WBC (Bld) 2.1 % 0-5 [facility] Work Phone: [phone] Neutrophils (Bld) [#/Vol] 6.1 10*3/uL 2.0-7.7 [facility] Work Phone: [phone] Neutrophils/100 WBC (Bld) 68.3 % 47-70 [facility] Work Phone: [phone] WBC (Bld) [#/Vol] 8.9 10*3/uL 4.4-11.0 [facility] Work Phone: [phone] Blood erythrocytes count (nu mber/volume)on 12-06-2021 RBC (Bld) [#/Vol] 4.36 10*6/uL 4.2-5.4 [facility] Work Phone: [phone] Blood hemoglobin measurement (mass/volume)on 12-06-2021 Hemoglobin (Bld) [Mass/Vol] 11.8 g/dL 12.0-15.0 [facility] Work Phone: [phone] Blood lymphocytes/100 leukoc yteson 12-06-2021 Lymphocytes/100 WBC (Bld) 22.1 % 19-41 [facility] Work Phone: [phone] Blood monocytes/100 leukocyt eson 12-06-2021 Monocytes/100 WBC (Bld) 7.1 % 0-10 [facility] Work Phone: [phone] Blood platelet mean volumeon 12-06-2021 Platelet mean volume (Bld) [Entitic vol] 9.6 fL 6.2-12.0 [facility] Work Phone: Determination of erythrocyte mean corpuscular volume (MCV)on 12-06-2021 MCV (RBC) [Entitic vol] 82.8 fL 81-99 [facility] Work Phone: Hematocrit Auto (Bld) [Volum e fraction]on 12-06-2021 Hematocrit (Bld) [Volume fraction] 36.1 % 37-47 [facility] Work Phone: [phone] INR in Blood by Coagulation assayon 12-06-2021 INR Coag (Bld) [Relative time] 1.0 {INR} [facility] Work Phone: [phone] Laboratory - Coagulationon 0 12-06-2021 aPTT Coag (Bld) [Time] 34.0 s 24.1-36.2 [facility] Work Phone: [phone] PT Coag (PPP) [Time] 13.3 s 11.7-14.9 [facility] Work Phone: [phone] Laboratory - Hematology and Cell countson 12-06-2021 Erythrocyte distribution width (RBC) [Entitic vol] 48.2 fL 35.1-43.9 [facility] Work Phone: [phone] Erythrocyte distribution width (RBC) [Ratio] 15.9 % 11.6-14.6 [facility] Work Phone: [phone] Immature granulocytes/100 WBC (Bld) 0.200 % 0.0-0.9 [facility] Work Phone: [phone] Comment on above: IG% - Immature Granu locytes (promyelocytes, myelocytes and metamyelocytes) > 1% indicates that a LEFT SHIFT is Present. MCH (RBC) [Entitic mass] 27.1 pg 27.0-32.0 [facility] Work Phone: [phone] Nucleated RBC/100 WBC (Bld) [Ratio] 0 % 0-5 [facility] Work Phone: [phone] MCHC Auto (RBC) [Mass/Vol]on 12-06-2021 MCHC (RBC) [Mass/Vol] 32.7 g/dL 32-36 [facility] Work Phone: [phone] Panel Informationon 12-06 Fibrinogen 471 mg/dl 203-444 [facility] Work Phone: [phone] Platelets bldon 12-06-2021 Platelets (Bld) [#/Vol] 325 10*3/uL 150-450 [facility] Work Phone: OBSTETRIC ULTRASOUND WHIon 0 12-04-2021 [facility] URINE OB DIP B/Oon 2 Glucose Ql (U) Negative Neg mg/dL [facility] Protein.monoclonal (U) [Mass/Vol] Negative Neg mg/dL [facility] URINE OB DIP B/Oon 2 Glucose Ql (U) Negative Neg mg/dL [facility] Protein.monoclonal (U) [Mass/Vol] Negative Neg mg/dL [facility] URINE OB DIP B/Oon 2 Glucose Ql (U) Negative Neg mg/dL [facility] Protein.monoclonal (U) [Mass/Vol] Negative Neg mg/dL [facility] URINE OB DIP B/Oon 2 Glucose Ql (U) Negative Neg mg/dL [facility] Protein.monoclonal (U) [Mass/Vol] Negative Neg mg/dL [facility] URINE OB DIP B/Oon 2 Glucose Ql (U) Negative Neg mg/dL [facility] Protein.monoclonal (U) [Mass/Vol] Negative Neg mg/dL [facility] OBSTETRIC ULTRASOUND WHIon 0 08-13-2021 [facility] URINE OB DIP B/Oon 2 Glucose Ql (U) Negative Neg mg/dL [facility] Protein.monoclonal (U) [Mass/Vol] Negative Neg mg/dL [facility] URINE OB DIP B/Oon 2 Glucose Ql (U) Negative Neg mg/dL [facility] Protein.monoclonal (U) [Mass/Vol] Negative Neg mg/dL [facility] Vital Signs Date Time Vital Sign Value Performing Clinician Facility 11-24-2024 08:58-0400 Body mass index (BMI) [Ratio] 32.95 kg/m2 Kasey Yang MD Work Phone: [facility] 11-24-2024 08:58-0400 Body weight 89.81 kg Kasey Yang MD Work Phone: [facility] 11-24-2024 08:58-0400 Diastolic blood pressure 68 mm[Hg] Kasey Yang MD Work Phone: [facility] 11-24-2024 08:58-0400 Systolic blood pressure 124 mm[Hg] Kasey Yang MD Work Phone: [facility] 11-15-2024 14:53-0400 Body temperature 97.8 [degF] Dr. Kathy Vyas MD Work Phone: [facility] 11-15-2024 14:53-0400 Diastolic blood pressure 64 mm[Hg] Dr. Kathy Vyas MD Work Phone: [facility] 11-15-2024 14:53-0400 Heart rate 90 /min Dr. Kathy Vyas MD Work Phone: [facility] 11-15-2024 14:53-0400 Respiratory rate 16 /min Dr. Kathy Vyas MD Work Phone: [facility] 11-15-2024 14:53-0400 SaO2% (BldA) [Mass fraction] 99 % Dr. Kathy Vyas MD Work Phone: [facility] 11-15-2024 14:53-0400 Systolic blood pressure 135 mm[Hg] Dr. Kathy Vyas MD Work Phone: [facility] 11-15-2024 10:46-0400 Body height 167.[address] Kathy Vyas MD Work Phone: [facility] 11-15-2024 10:46-0400 Body mass index (BMI) [Ratio] 31.5 kg/m2 Dr. Kathy Vyas MD Work Phone: [facility] 11-15-2024 10:46-0400 Body weight 88.[address] Kathy Vyas MD Work Phone: [facility] 11-15-2024 10:05-0400 Body mass index (BMI) [Ratio] 32.31 kg/m2 Dante Waite MD Work Phone: [facility] 11-15-2024 10:05-0400 Body weight 88.18 kg Dante Waite MD Work Phone: [facility] 11-15-2024 10:05-0400 Diastolic blood pressure 80 mm[Hg] Dante Waite MD Work Phone: [facility] 11-15-2024 10:05-0400 Systolic blood pressure 122 mm[Hg] Dante Waite MD Work Phone: [facility] 11-12-2024 10:49-0400 Body mass index (BMI) [Ratio] 31.75 kg/m2 Dante Waite MD Work Phone: [facility] 11-12-2024 10:49-0400 Body weight 86.64 kg Dante Waite MD Work Phone: [facility] 11-12-2024 10:49-0400 Diastolic blood pressure 78 mm[Hg] Dante Waite MD Work Phone: [facility] 11-12-2024 10:49-0400 Systolic blood pressure 124 mm[Hg] Dante Waite MD Work Phone: [facility] 11-10-2024 10:41-0400 Body mass index (BMI) [Ratio] 31.91 kg/m2 Dante Waite MD Work Phone: [facility] 11-10-2024 10:41-0400 Body weight 87.09 kg Dante Waite MD Work Phone: [facility] 11-10-2024 10:41-0400 Diastolic blood pressure 78 mm[Hg] Dante Waite MD Work Phone: [facility] 11-10-2024 10:41-0400 Systolic blood pressure 116 mm[Hg] Dante Waite MD Work Phone: [facility] 10-27-2024 08:42-0400 Body mass index (BMI) [Ratio] 31.41 kg/m2 Dante Waite MD Work Phone: [facility] 10-27-2024 08:42-0400 Body weight 85.73 kg Dante Waite MD Work Phone: [facility] 10-27-2024 08:42-0400 Diastolic blood pressure 72 mm[Hg] Dante Waite MD Work Phone: [facility] 10-27-2024 08:42-0400 Systolic blood pressure 114 mm[Hg] Dante Waite MD Work Phone: [facility] 10-13-2024 08:28-0400 Body mass index (BMI) [Ratio] 31.08 kg/m2 Dante Waite MD Work Phone: [facility] 10-13-2024 08:28-0400 Body weight 84.82 kg Dante Waite MD Work Phone: [facility] 10-13-2024 08:28-0400 Diastolic blood pressure 72 mm[Hg] Dante Waite MD Work Phone: [facility] 10-13-2024 08:28-0400 Systolic blood pressure 110 mm[Hg] Dante Waite MD Work Phone: [facility] 09-27-2024 08:44-0400 Body mass index (BMI) [Ratio] 30.91 kg/m2 Tara Parks APRN.CNM Work Phone: [facility] 09-27-2024 08:44-0400 Body temperature 98.01 [degF] Tara Parks APRN.CNM Work Phone: [facility] 09-27-2024 08:44-0400 Body weight 84.37 kg Tara Parks APRN.CNRenato Work Phone: [facility] 09-27-2024 08:44-0400 Diastolic blood pressure 73 mm[Hg] Tara Parks APRN.CNM Work Phone: [facility] 09-27-2024 08:44-0400 Heart rate 103 /min Tara Parks APRN.CNM Work Phone: [facility] 09-27-2024 08:44-0400 Systolic blood pressure 115 mm[Hg] Tara Parks APRN.CNM Work Phone: [facility] 09-15-2024 08:23-0400 Body mass index (BMI) [Ratio] 30.75 kg/m2 Dante Waite MD Work Phone: [facility] 09-15-2024 08:23-0400 Body weight 83.92 kg Dante Waite MD Work Phone: [facility] 09-15-2024 08:23-0400 Diastolic blood pressure 68 mm[Hg] Dante Waite MD Work Phone: [facility] 09-15-2024 08:23-0400 Systolic blood pressure 110 mm[Hg] Dante Waite MD Work Phone: [facility] 08-18-2024 08:21-0400 Body mass index (BMI) [Ratio] 29.75 kg/m2 Dante Waite MD Work Phone: [facility] 08-18-2024 08:21-0400 Body weight 81.19 kg Dante Waite MD Work Phone: [facility] 08-18-2024 08:21-0400 Diastolic blood pressure 68 mm[Hg] Dante Waite MD Work Phone: [facility] 08-18-2024 08:21-0400 Systolic blood pressure 106 mm[Hg] Dante Waite MD Work Phone: [facility] 07-21-2024 15:55-0400 Body mass index (BMI) [Ratio] 29.59 kg/m2 Macarena Perez APRN.DIMPLING MACHINE OPERATOR Work Phone: [facility] 07-21-2024 15:55-0400 Body weight 80.74 kg Macarena Perez APRN.DIMPLING MACHINE OPERATOR Work Phone: [facility] 07-21-2024 15:55-0400 Diastolic blood pressure 60 mm[Hg] Macarena Perez APRN.DIMPLING MACHINE OPERATOR Work Phone: [facility] 07-21-2024 15:55-0400 Systolic blood pressure 110 mm[Hg] Macarena Perez ROGERS Work Phone: [facility] 06-23-2024 09:59-0400 Body mass index (BMI) [Ratio] 28.75 kg/m2 Dante Waite MD Work Phone: [facility] 06-23-2024 09:59-0400 Body weight 78.47 kg Dante Waite MD Work Phone: [facility] 06-23-2024 09:59-0400 Diastolic blood pressure 60 mm[Hg] Dante Waite MD Work Phone: [facility] 06-23-2024 09:59-0400 Systolic blood pressure 122 mm[Hg] Dante Waite MD Work Phone: [facility] 06-02-2024 11:23-0500 Body mass index (BMI) [Ratio] 28.42 kg/m2 Dante Waite MD Work Phone: [facility] 06-02-2024 11:23-0500 Body weight 77.56 kg Dante Waite MD Work Phone: [facility] 06-02-2024 11:23-0500 Diastolic blood pressure 68 mm[Hg] Dante Waite MD Work Phone: [facility] 06-02-2024 11:23-0500 Systolic blood pressure 122 mm[Hg] Dante Waite MD Work Phone: [facility] 05-18-2024 08:26-0500 Body mass index (BMI) [Ratio] 27.59 kg/m2 Dante Waite MD Work Phone: [facility] 05-18-2024 08:26-0500 Body weight 75.3 kg Dante Waite MD Work Phone: [facility] 05-18-2024 08:26-0500 Diastolic blood pressure 68 mm[Hg] Dante Waite MD Work Phone: [facility] 05-18-2024 08:26-0500 Systolic blood pressure 128 mm[Hg] Dante Waite MD Work Phone: [facility] 05-04-2024 08:48-0500 Body mass index (BMI) [Ratio] 27.92 kg/m2 Dante Waite MD Work Phone: [facility] 05-04-2024 08:48-0500 Body weight 76.2 kg Dante Waite MD Work Phone: [facility] 05-04-2024 08:48-0500 Diastolic blood pressure 64 mm[Hg] Dante Waite MD Work Phone: [facility] 05-04-2024 08:48-0500 Systolic blood pressure 110 mm[Hg] Dante Waite MD Work Phone: [facility] 04-19-2024 08:19-0500 Body mass index (BMI) [Ratio] 27.92 kg/m2 Mai Ionia WARPING MACHINE OPERATOR.DIMPLING MACHINE OPERATOR Work Phone: [facility] 04-19-2024 08:19-0500 Body weight 76.2 kg Mai Franny WARPING MACHINE OPERATOR.DIMPLING MACHINE OPERATOR Work Phone: [facility] 04-19-2024 08:19-0500 Diastolic blood pressure 66 mm[Hg] Mai Ionia WARPING MACHINE OPERATOR.DIMPLING MACHINE OPERATOR Work Phone: [facility] 04-19-2024 08:19-0500 Systolic blood pressure 122 mm[Hg] Mai Franny WARPING MACHINE OPERATOR.DIMPLING MACHINE OPERATOR Work Phone: [facility] 10-10-2023 13:44-0400 Body height 165.2 cm Dante Waite MD Work Phone: [facility] 10-10-2023 13:44-0400 Body mass index (BMI) [Ratio] 27.46 kg/m2 Dante Waite MD Work Phone: [facility] 10-10-2023 13:44-0400 Body weight 74.93 kg Dante Waite MD Work Phone: [facility] 10-10-2023 13:44-0400 Diastolic blood pressure 68 mm[Hg] Dante Waite MD Work Phone: [facility] 10-10-2023 13:44-0400 Systolic blood pressure 108 mm[Hg] Dante Waite MD Work Phone: [facility] 09-16-2022 10:55-0400 Diastolic blood pressure 69 mm[Hg] [facility] 09-16-2022 10:55-0400 Heart rate 72 /min [facility] 09-16-2022 10:55-0400 Respiratory rate 15 /min [facility] 09-16-2022 10:55-0400 SaO2% (BldA) [Mass fraction] 98 % [facility] 09-16-2022 10:55-0400 Systolic blood pressure 127 mm[Hg] [facility] 09-16-2022 09:55-0400 Body height 167.64 cm [facility] 09-16-2022 09:55-0400 Body mass index (BMI) [Ratio] 27.4 kg/m2 [facility] 09-16-2022 09:55-0400 Body temperature 97.8 [degF] [facility] 09-16-2022 09:55-0400 Body weight 77.11 kg [facility] 09-16-2022 08:55-0400 Body temperature 99.19 [degF] Best Lane MD Work Phone: [facility] 09-16-2022 08:55-0400 Body weight 77.[address] MD Work Phone: [facility] 09-16-2022 08:55-0400 Diastolic blood pressure 80 mm[Hg] Best Lane MD Work Phone: [facility] 09-16-2022 08:55-0400 Heart rate 102 /min Best Lane MD Work Phone: [facility] 09-16-2022 08:55-0400 Respiratory rate 21 /min Best Lane MD Work Phone: [facility] 09-16-2022 08:55-0400 SaO2% (BldA) [Mass fraction] 99 % Best [address] MD Work Phone: [facility] 09-16-2022 08:55-0400 Systolic blood pressure 110 mm[Hg] Best Lane MD Work Phone: [facility] 03-05-2022 11:36-0500 Body weight 76.2 kg Alban Hooker MD Work Phone: [facility] 03-05-2022 11:36-0500 Diastolic blood pressure 70 mm[Hg] Alban Hooker MD Work Phone: [facility] 03-05-2022 11:36-0500 Systolic blood pressure 112 mm[Hg] Alban Hooker MD Work Phone: [facility] 02-14-2022 10:36-0400 Body weight 74.84 kg Kasey Yang MD Work Phone: [facility] 02-14-2022 10:36-0400 Diastolic blood pressure 70 mm[Hg] Kasey Yang MD Work Phone: [facility] 02-14-2022 10:36-0400 Systolic blood pressure 118 mm[Hg] Kasey Yang MD Work Phone: [facility] 01-17-2022 10:54-0400 Body weight 74.84 kg Dante Waite MD Work Phone: [facility] 01-17-2022 10:54-0400 Diastolic blood pressure 72 mm[Hg] Dante Waite MD Work Phone: [facility] 01-17-2022 10:54-0400 Systolic blood pressure 112 mm[Hg] Dante Waite MD Work Phone: [facility] 01-05-2022 16:14-0400 Body temperature 98.9 [degF] [facility] Work Phone: 01-05-2022 16:14-0400 Diastolic blood pressure 75 mm[Hg] [facility] Work Phone: 01-05-2022 16:14-0400 Heart rate 93 /min [facility] Work Phone: 01-05-2022 16:14-0400 Respiratory rate 14 /min [facility] Work Phone: 01-05-2022 16:14-0400 SaO2% (BldA) [Mass fraction] 98 % [facility] Work Phone: 01-05-2022 16:14-0400 Systolic blood pressure 114 mm[Hg] [facility] Work Phone: 01-04-2022 07:15-0400 Body height 167.64 cm [facility] Work Phone: 01-04-2022 07:15-0400 Body mass index (BMI) [Ratio] 28.7 kg/m2 [facility] Work Phone: 01-04-2022 07:15-0400 Body weight 80.73 kg [facility] Work Phone: 01-01-2022 11:25-0400 Body weight 81.65 kg Dante Waite MD Work Phone: [facility] 01-01-2022 11:25-0400 Diastolic blood pressure 86 mm[Hg] Dante Waite MD Work Phone: [facility] 01-01-2022 11:25-0400 Systolic blood pressure 136 mm[Hg] Dante Waite MD Work Phone: [facility] 12-25-2021 09:18-0400 Body weight 78.93 kg Kasey Yang MD Work Phone: [facility] 12-25-2021 09:18-0400 Diastolic blood pressure 68 mm[Hg] Kasey Yang MD Work Phone: [facility] 12-25-2021 09:18-0400 Systolic blood pressure 110 mm[Hg] Kasey Yang MD Work Phone: [facility] 12-19-2021 15:10-0400 Body weight 79.83 kg Dante Waite MD Work Phone: [facility] 12-19-2021 15:10-0400 Diastolic blood pressure 72 mm[Hg] Dante Waite MD Work Phone: [facility] 12-19-2021 15:10-0400 Systolic blood pressure 104 mm[Hg] Dante Waite MD Work Phone: [facility] 12-13-2021 11:44-0400 Body weight 78.93 kg Dante Waite MD Work Phone: [facility] 12-13-2021 11:44-0400 Diastolic blood pressure 68 mm[Hg] Dante Waite MD Work Phone: [facility] 12-13-2021 11:44-0400 Systolic blood pressure 108 mm[Hg] Dante Waite MD Work Phone: [facility] 12-06-2021 17:45-0400 Heart rate 91 /min [facility] Work Phone: 12-06-2021 17:45-0400 SaO2% (BldA) [Mass fraction] 98 % [facility] Work Phone: 12-06-2021 17:44-0400 Diastolic blood pressure 85 mm[Hg] [facility] Work Phone: 12-06-2021 17:44-0400 Systolic blood pressure 139 mm[Hg] [facility] Work Phone: 12-06-2021 17:42-0400 Body height 167.64 cm [facility] Work Phone: 12-06-2021 17:42-0400 Body mass index (BMI) [Ratio] 28.3 kg/m2 [facility] Work Phone: 12-06-2021 17:42-0400 Body weight 79.7 kg [facility] Work Phone: 12-04-2021 09:46-0400 Body weight 78.93 kg Dante Waite MD Work Phone: [facility] 12-04-2021 09:46-0400 Diastolic blood pressure 74 mm[Hg] Dante Waite MD Work Phone: [facility] 12-04-2021 09:46-0400 Systolic blood pressure 102 mm[Hg] Dante Waite MD Work Phone: [facility] 11-20-2021 09:52-0400 Body weight 78.02 kg Dante Waite MD Work Phone: [facility] 11-20-2021 09:52-0400 Diastolic blood pressure 64 mm[Hg] Dante Waite MD Work Phone: [facility] 11-20-2021 09:52-0400 Systolic blood pressure 102 mm[Hg] Dante Waite MD Work Phone: [facility] 11-07-2021 13:25-0400 Body weight 79.38 kg Dante Waite MD Work Phone: [facility] 11-07-2021 13:25-0400 Diastolic blood pressure 70 mm[Hg] Dante Waite MD Work Phone: [facility] 11-07-2021 13:25-0400 Systolic blood pressure 124 mm[Hg] Dante Waite MD Work Phone: [facility] 10-09-2021 10:01-0400 Body weight 78.47 kg Dante Waite MD Work Phone: [facility] 10-09-2021 10:01-0400 Diastolic blood pressure 62 mm[Hg] Dante Waite MD Work Phone: [facility] 10-09-2021 10:01-0400 Systolic blood pressure 118 mm[Hg] Dante Waite MD Work Phone: [facility] 09-11-2021 09:38-0400 Body weight 75.75 kg Dante Waite MD Work Phone: [facility] 09-11-2021 09:38-0400 Diastolic blood pressure 68 mm[Hg] Dante Waite MD Work Phone: [facility] 09-11-2021 09:38-0400 Systolic blood pressure 114 mm[Hg] Dante Waite MD Work Phone: [facility] 08-13-2021 09:43-0400 Body weight 72.58 kg Dante Waite MD Work Phone: [facility] 08-13-2021 09:43-0400 Diastolic blood pressure 66 mm[Hg] Dante Waite MD Work Phone: [facility] 08-13-2021 09:43-0400 Systolic blood pressure 108 mm[Hg] Dante Waite MD Work Phone: [facility] 07-20-2021 09:50-0400 Body weight 71.22 kg Dante Waite MD Work Phone: [facility] 07-20-2021 09:50-0400 Diastolic blood pressure 66 mm[Hg] Dante Waite MD Work Phone: [facility] 07-20-2021 09:50-0400 Systolic blood pressure 118 mm[Hg] Dante Waite MD Work Phone: [facility] Encounters Encounter Date Encounter Type Care Provider Facility Start: 11-30-2024 ambulatory Dante Wylie y:[facility] Start: 11-24-2024 End: 11-24-2024 Patient encounter procedure Kasey Yang MD Work Phone: OB/Gynecology Comment on above: Supervision of high risk in third trimester (HCC) (Primary Dx); Hx of preeclampsia, prior , currently (HCC); Breech presentation with problem, single or unspecified fetus (HCC); Anemia during in third trimester (HCC); 38 weeks gestation of (HCC) Start: 11-24-2024 End: 11-24-2024 ambulatory KASEY YANG Facility:[facility] Start: 11-23-2024 End: 11-23-2024 [facility]: 11-23-2024 End: 11-23-2024 [facility] Comment on above: Population Health Na vigation Outreach ( to PCP/OB/) Start: 11-17-2024 End: 11-17-2024 ambulatory KATHY VYAS Facility:[facility] Start: 11-15-2024 End: 11-15-2024 Patient encounter procedure Tara Parks JUMA -[facility] Work Phone: Comment on above: 37 weeks gestation o f (HCC) (Primary Dx); Supervision of high risk in third trimester (HCC) Start: 11-15-2024 End: 11-15-[address] Kathy Vyas MD Work Phone: [facility] Start: 11-12-2024 End: 11-12-2024 Patient encounter procedure Dante Waite MD Work Phone: OB/Gynecology Comment on above: Supervision of high risk in third trimester (HCC) (Primary Dx); Hx of preeclampsia, prior , currently (HCC); Breech presentation with problem, single or unspecified fetus (HCC); 36 weeks gestation of (HCC); Anemia during in third trimester (HCC) Start: 11-12-2024 End: 11-12-2024 ambulatory KATHY VYAS Facility:[facility] Start: 11-10-2024 End: 11-10-2024 Patient encounter procedure [...] of (HCC) Start: 10-27-2024 End: 10-27-2024 ambulatory [facility] Facility:[facility] Start: 10-13-2024 End: 10-13-2024 Patient encounter procedure Dante Waite MD Work Phone: OB/Gynecology Comment on above: Supervision of high risk in third trimester (HCC) (Primary Dx); Hx of preeclampsia, prior , currently (HCC); Anemia during in third trimester (HCC); 32 weeks gestation of (HCC) Start: 10-13-2024 End: 10-13-2024 [facility] Facility:[facility] Start: 10-04-2024 End: 10-04-2024 Telephone encounter Dante Waite MD Work Phone: OB/Gynecology Comment on above: Breast Pump Start: 09-27-2024 End: 11-27-2024 Follow-up encounter Tara Parks APRN.CNM Work Phone: OB/Gynecology Start: 09-27-2024 End: 09-27-2024 [facility] Facility:[facility] Start: 09-27-2024 End: 09-27-2024 Patient encounter procedure Taar Parks APRN.CNM Work Phone: OB/Gynecology Comment on [...] 09-15-2024 End: 09-15-2024 ambulatory KATHY E MIEDEL Facility:[facility] Start: 08-18-2024 End: 08-18-2024 Patient encounter procedure Dante Waite MD Work Phone: OB/Gynecology Comment on above: Supervision of high risk in second trimester (HCC) (Primary Dx); 24 weeks gestation of (HCC); Screening for diabetes mellitus Start: 08-18-2024 End: 08-18-20[facility] Start: 07-21-2024 End: 07-21-2024 [facility] Facility:[facility] Start: 07-21-2024 End: 07-21-2024 Patient encounter procedure Macarena Perez APRN.CNP Work Phone: OB/Gynecology Comment on above: Supervision of high risk in second trimester (HCC) (Primary Dx); 20 weeks gestation of (HCC); Hx of preeclampsia, prior , currently (HCC); Hx of gestational diabetes in prior , currently (HCC) Start: 07-21-2024 End: 07-21-2024 ambulatory KATHY E MIEDEL Facility:[facility] Start: 06-23-2024 End: 06-23-2024 ambulatory [facility] Facility:[facility] Start: 06-23-2024 End: 06-23-2024 Patient encounter procedure [...] 06-02-2024 Patient encounter procedure [employer] [facility] Comment on above: Encounter for antena holly screening for malformation using ultrasound (Primary Dx); 13 weeks gestation of Start: 05-18-2024 End: 05-18-2024 ambulatory KATHY Gianfranco VYAS Facility:[facility] Start: 05-18-2024 End: 05-18-2024 Patient encounter procedure [...] Start: 04-19-2024 End: 04-19-2024 ambulatory KATHY Gianfranco EcinityAVRIL Facility:[facility] Start: 04-19-2024 End: 04-19-2024 Patient encounter procedure Mai Blanton APRN.DIMPLING MACHINE OPERATOR Work Phone: OB/Gynecology Comment on above: with [...] encounter status Dante Waite MD Work Phone: [facility] Start: 09-19-2023 Refill Dante owens MD Work [...] 09-16-2022 End: 09-16-2022 Emergency department patient visit [facility]-Emergency Department Start: 09-16-2022 End: 09-16-2022 Subsequent hospital visit by physician [facility] Work Phone: Radiology Comment on above: Acute cough [R05.1] Start: 09-16-2022 End: 09-16-[address] MD [facility] Comment on above: Acute cough (Primary [...] End: 01-05-2022 Evaluation and management of inpatient [facility] Start: 01-01-2022 End: 01-01-2022 Patient encounter procedure [...] first trimester Start: 12-06-2021 End: 12-06-2021 ambulatory [facility] Work Phone: Start: 12-06-2021 End: 12-06-2021 Patient encounter procedure [facility] Start: 12-04-2021 End: 12-04-2021 [...] Nursing evaluation of patient and report Nurse Back Tacker [facility] Work Phone: OB/Gynecology Comment on above: [...] Phone: OB/Gynecology Comment on above: [employer] form ([place]) Procedures Date Procedure Procedure Detail Performing Clinician [...] Speci men Type: BLOOD SPECIMEN Ordering Facility: [facility] Address: [address] [place] [address] Performed By: #### T SPN #### [facility] CLIA [id number] [facility] DESK [id number] [place] [address] [place] Start: 05-04-2024 Us preg uterus after 1st trimest 04/14 gestation Mai Blanton WARPING MACHINE OPERATOR.DIMPLING MACHINE OPERATOR Work Phone: Start: 04-19-2024 Us uterus limited 1/> fetuses Mai Blanton WARPING MACHINE OPERATOR.DIMPLING MACHINE OPERATOR Work Phone: Start: 04-19-2024 Adult depression screening [...] DTaP,Tdap,Td Vaccine (4 - Td or Tdap) [facility] Start: 12-05-2031 Urine microalbumin profile [facility] Start: 11-14-2029 Urine microalbumin profile DTAP,TDAP,TD (2 - Td or Tdap) [facility] Start: 05-29-2026 HPV TESTING HPV TESTING [facility] Start: 05-29-2026 PAP TESTING PAP TESTING [facility] Start: 05-29-2026 Screening for malign ant neoplasm of cervix [facility] Start: 04-19-2025 Anxiety Screening Anxiety Screening [facility] Start: 04-19-2025 Depression Screening Depression Scre ening [facility] Start: 12-20-2024 End: 12-20-2024 Patient encounter procedure 12/20/2024 10:50 AM EDT Office Visit OB/Gynecology [address] [place] [address] Dante Waite MD [address] [place] [id number] POST OP 6 week OB/Gynecology Comment on above: POST OP 6 week Start: 12-13-2024 Influenza [facility] Start: 12-08-2024 End: 12-08-2024 Patient encounter procedure 12/08/2024 10:20 AM EDT Office Visit OB/Gynecology [address] [place] [address] Dante Waite MD [address] [place] [address] 1 week incision check OB/Gynecology Comment on above: 1 week incision chec k Start: 11-24-2024 End: 11-24-2024 Patient encounter procedure OB/Gynecology Comment on above: OB OB - Pre Op C/S 11/30 @ [facility] Start: 11-17-2024 End: 11-17-2024 Patient encounter procedure OB/Gynecology Comment on above: OB OB- Start: 11-15-2024 Nonstress test [facility] Start: 11-15-2024 Catheterization of vein [facility] Start: 11-15-2024 [facility] Start: 11-15-2024 End: 11-15-2024 Patient encounter procedure 11/15/2024 10:20 AM EDT Routine Office Visit OB/Gynecology [address] [place] [address] Dante Waite MD [address] [place] [address] OB/ Ok per RR she will be back form [facility] OB/Gynecology Comment on above: OB/ Ok per RR she wi ll be back form [facility] Start: 11-15-2024 Patient discharge [facility] Start: 11-12-2024 End: 11-12-2024 Patient encounter procedure 11/12/2024 10:30 AM EDT Routine Office Visit OB/Gynecology [address] [address] Dante Waite MD [address] [place] [id number] OB - check presentation to see if she is still breech OB/Gynecology Comment on above: OB - check presentat ion to see if she is still breech Start: 11-10-2024 End: 11-10-2024 Patient encounter procedure 11/10/2024 10:40 AM EDT Routine Office Visit OB/Gynecology [address] [place] [address] Dante Waite MD [address] [place], [place] [id number] OB OB/Gynecology Comment on above: OB Start: 10-27-2024 End: 10-27-2024 Patient encounter procedure 10/27/2024 8:30 AM EDT Routine Office Visit OB/Gynecology [address] [place] [address] Dante Waite MD [address] [place], [place] [id number] OB OB/Gynecology Comment on above: OB Start: 10-13-2024 End: 01-12-2025 CBC panel - Blood by Automated count COMPLETE BLOOD COUNT Lab Routine Supervision of high risk in third trimester (HCC) Hx of preeclampsia, prior , currently (HCC) Anemia during in third trimester (HCC) 32 weeks gestation of (HCC) Expected: 10/13/2024, Expires: 01/12/2025 [facility] Work Phone: Comment on above: Expected: 10/13/2024 , Expires: 01/12/2025 Start: 10-13-2024 End: 10-13-2024 Patient encounter procedure 10/13/2024 1:40 PM EDT Office Visit OB/Gynecology [address] [place], [place] [id number] Dante Waite MD [address] [place], [place] [id number] Annual OB/Gynecology Comment on above: Annual Start: 10-13-2024 End: 10-13-2024 Patient encounter procedure 10/13/2024 8:30 AM EDT Routine Office Visit OB/Gynecology [address] [place] [address] Dante Waite MD [address] [place] [address] OB OB/Gynecology Comment on above: OB Start: 09-15-2024 End: 09-15-2024 ambulatory 09/15/2024 9:15 AM EDT Results Only Letty Ricardo [facility] [address] [place] [address] Letty Robersonwn [facility] Start: 09-15-2024 End: 09-15-2024 Patient encounter procedure 09/15/2024 8:30 AM EDT Routine Office Visit OB/Gynecology [address] [place] [address] Dante Waite MD [address] [place] [address] OB OB/Gynecology Comment on above: OB Start: 08-18-2024 End: 11-17-2024 ANEMIA REFLEX PANEL ANEMIA REFLEX PANEL Lab Routine 24 weeks gestation of ([facility]) Screening for diabetes mellitus Expected: 08/18/2024, Expires: 11/17/2024 [facility] Comment on above: Expected: 08/18/2024 , Expires: 11/17/2024 Start: 08-18-2024 End: 08-18-2025 GESTATIONAL GLUCOSE SCREEN, 1-HOUR, 50 GRAM, NON-FASTING GESTATIONAL GLUCOSE SCREEN, 1-HOUR, 50 GRAM, NON-FASTING Lab Routine 24 weeks gestation of (HCC) Screening for diabetes mellitus Expected: 08/18/2024, Expires: 08/18/2025 [facility] Work Phone: Comment on above: Expected: 08/18/2024 , Expires: 08/18/2025 Start: 08-18-2024 End: 08-18-2025 SYPHILIS TREPONEMAL W/REFLEX SYPHILIS TREPONEMAL W/REFLEX Lab Routine 24 weeks gestation of (HCC) Screening for diabetes mellitus Expected: 08/18/2024, Expires: 08/18/2025 [facility] Comment on above: Expected: 08/18/2024 , Expires: 08/18/2025 Start: 08-18-2024 End: 08-18-2024 Patient encounter procedure 08/18/2024 8:30 AM EDT Routine Office Visit OB/Gynecology [address] [place] [address] Dante Waite MD [address] [place] [address] OB OB/Gynecology Comment on above: OB Start: 07-21-2024 End: 07-21-2024 Patient encounter procedure 07/21/2024 3:40 PM EDT Routine Office Visit OB/Gynecology [address] [place] [address] Dante Waite MD [address] [place] [address] Anatomy/OB OB/Gynecology Comment on above: Anatomy/OB Start: 07-21-2024 End: 07-21-2024 Patient encounter procedure 07/21/2024 2:30 PM EDT Routine Office Visit Maternal Medicine [address] [place] [address] Anatomy [facility]aternal [facility] Comment on above: Anatomy Start: 06-23-2024 End: 06-23-2024 Patient encounter procedure [facility]aternal Medicine Comment on above: Early Anatomy Early Anatomy/OB Start: 06-02-2024 End: 06-02-2024 Patient encounter procedure 06/02/2024 3:10 PM EST Routine Office Visit OB/Gynecology [address] [place] [address] Dante Waite MD [address] [place] [address] OB Routine OB/Gynecology Comment on above: OB Routine Start: 06-02-2024 End: 06-02-2024 Patient encounter procedure 06/02/2024 10:30 AM EST Routine Office Visit Maternal Medicine [address] [place] [address] Early Anatomy [facility]aternal [facility] Comment on above: Early Anatomy Start: 05-29-2024 PAP TESTING PAP TESTING [facility] Start: 05-18-2024 End: 05-18-2024 Patient encounter procedure 05/18/2024 10:20 AM EST Routine Office Visit OB/Gynecology [address] [place] [address] Dante Waite MD [address] [place] [address] NEW OB VISIT, LMP 02/28/24, LETTY DELIVERY OB/Gynecology Comment on above: NEW OB VISIT, LMP , LETTY DELIVERY Start: 05-18-2024 End: 05-18-2024 Patient encounter procedure 05/18/2024 8:30 AM EST Routine Office Visit OB/Gynecology [address] [place] [address] Dante Waite MD [address] [place] [address] OB OB/Gynecology Comment on above: OB Start: 05-17-2024 End: 05-17-2024 Patient encounter procedure 05/17/2024 10:10 AM EST Routine Office Visit OB/Gynecology [address] [place] [address] Mare Winters MD [address] [place] [address] NEW OB VISIT, LMP 02/28/24, LETTY DELIVERY OB/Gynecology Comment on above: NEW OB VISIT, LMP , LETTY DELIVERY Start: 05-04-2024 End: 08-03-2024 Chromosome 21 trisomy [Presence] in Blood or Tissue by Cytogenetics [id number] PLUS Lab Routine Encounter for supervision of normal in multigravida Hx of preeclampsia, prior , currently 9 weeks gestation of Expected: 05/04/2024, Expires: 08/03/2024 [facility] Comment on above: Expected: 05/04/2024 , Expires: 08/03/2024 Start: 05-04-2024 End: 05-04-2025 OBSTETRIC ULTRASOUND WHI OBSTETRIC ULTRASOUND WHI Anc Imaging Routine Encounter for supervision of normal in multigravida Hx of preeclampsia, prior , currently 9 weeks gestation of Expected: 05/04/2024, Expires: 05/04/2025 [facility] Comment on above: Expected: 05/04/2024 , Expires: 05/04/2025 Start: 05-04-2024 End: 05-04-2024 Patient encounter procedure Maternal Medicine Comment on above: Dating Dating /OB Start: 04-19-2024 End: 07-19-2024 ANEMIA REFLEX PANEL ANEMIA REFLEX PANEL Lab Routine with uncertain dates, antepartum Encounter for supervision of normal in multigravida Expected: 04/19/2024, Expires: 07/19/2024 [facility] Work Phone: Comment on above: Expected: 04/19/2024 , Expires: 07/19/2024 Start: 04-19-2024 End: 07-19-2024 Hemoglobin A1c in Blood HEMOGLOBIN A1C Lab Routine with uncertain dates, antepartum Encounter for supervision of normal in multigravida Expected: 04/19/2024, Expires: 07/19/2024 [facility] Comment on above: Expected: 04/19/2024 , Expires: 07/19/2024 Start: 04-19-2024 End: 07-19-2024 Hepatitis B virus surface Ag [Presence] in Serum HEPATITIS B SURFACE ANTIGEN Lab Routine with uncertain dates, antepartum Encounter for supervision of normal in multigravida Expected: 04/19/2024, Expires: 07/19/2024 [facility] Comment on above: Expected: 04/19/2024 , Expires: 07/19/2024 Start: 04-19-2024 End: 07-19-2024 Hepatitis C virus Ab [Presence] in Serum HEPATITIS C ANTIBODY IA WITH CONFIRMATION Lab Routine with uncertain dates, antepartum Encounter for supervision of normal in multigravida Expected: 04/19/2024, Expires: 07/19/2024 [facility] Comment on above: Expected: 04/19/2024 , Expires: 07/19/2024 Start: 04-19-2024 End: 07-19-2024 HIV 1+2 Ab [Presence] in Serum or Plasma by Immunoassay HIV 1/2 COMBO WITH REFLEX TO DIFFERENTIATION Lab Routine with uncertain dates, antepartum Encounter for supervision of normal in multigravida Expected: 04/19/2024, Expires: 07/19/2024 [facility] Comment on above: Expected: 04/19/2024 , Expires: 07/19/2024 Start: 04-19-2024 End: 04-19-2025 OBSTETRIC ULTRASOUND WHI OBSTETRIC ULTRASOUND WHI Anc Imaging Routine 7 weeks gestation of Expected: 04/19/2024, Expires: 04/19/2025 [facility] Comment on above: Expected: 04/19/2024 , Expires: 04/19/2025 Start: 04-19-2024 End: 07-19-2024 RUBELLA IGG ANTIBODY RUBELLA IGG ANTIBODY Lab Routine with uncertain dates, antepartum Encounter for supervision of normal in multigravida Expected: 04/19/2024, Expires: 07/19/2024 [facility] Comment on above: Expected: 04/19/2024 , Expires: 07/19/2024 Start: 04-19-2024 End: 07-19-2024 SYPHILIS TREPONEMAL W/REFLEX SYPHILIS TREPONEMAL W/REFLEX Lab Routine with uncertain dates, antepartum Encounter for supervision of normal in multigravida Expected: 04/19/2024, Expires: 07/19/2024 [facility] Comment on above: Expected: 04/19/2024 , Expires: 07/19/2024 Start: 04-19-2024 End: 07-19-2024 TYPE + SCREEN TYPE + SCREEN Blood Bank Routine with uncertain dates, antepartum Encounter for supervision of normal in multigravida Expected: 04/19/2024, Expires: 07/19/2024 [facility] Comment on above: Expected: 04/19/2024 , Expires: 07/19/2024 Start: 04-19-2024 End: 04-19-2024 Patient encounter procedure 04/19/2024 8:15 AM EST Initial Office Visit OB/Gynecology [address] [place] [address] Mai Blanton APRN.DIMPLING MACHINE OPERATOR [address] [place] [address] NEW OB VISIT, LMP 02/28/24, LETTY DELIVERY OB/Gynecology Comment on above: NEW OB VISIT, LMP , LETTY DELIVERY Start: 12-14-2023 Covid-19 Vaccine ( season) Covid-19 Vaccine () [facility] Start: 12-14-2023 Covid-19 Vaccine () Covid-19 Vaccine () [facility] Start: 12-14-2023 Influenza vaccination [facility] Start: 11-25-2023 End: 11-25-2023 Patient encounter procedure 11/25/2023 8:40 AM EDT Office Visit OB/Gynecology [address] [place] [address] Dante Waite MD [address] [place] [address] annual OB/Gynecology Comment on above: annual Start: 04-14-2023 Behavioral Health Screening Behavioral Health Screening [facility] Start: 04-14-2023 Depression Assessment Depression Ass essment [facility] Start: 03-10-2023 End: 06-09-2023 Bacteria identified in Urine by Culture [facility] Work Phone: Comment on above: Expected: 03/10/2023 , Expires: 06/09/2023 Start: 12-13-2022 Covid-19 Vaccine ( season) Covid-19 Vaccine () [facility] Start: 12-13-2022 Influenza vaccination Influenza Vacc ine (#1) [facility] Start: 04-14-2022 DEPRESSION ASSESSMENT DEPRESSION ASS ESSMENT [facility] Start: 01-05-2022 Patient discharge [facility] Work Phone: Start: 01-04-2022 Following clinical pathway protocol [facility] Work Phone: Start: 01-04-2022 Administration of medication [facility] Work Phone: Start: 01-04-2022 Application of ice collar, cap or bag [facility] Work Phone: Start: 01-04-2022 Catheterization of vein [facility] Work Phone: Start: 01-04-2022 Introduction of urin ruth catheter [facility] Work Phone: Start: 01-04-2022 Measuring intake and output [facility] Work Phone: Start: 01-04-2022 Notification of physician [facility] Work Phone: Start: 01-04-2022 Procedure discontinued [facility] Work Phone: Start: 01-04-2022 Provision of activit y privileges [facility] Work Phone: Start: 01-04-2022 Vital signs measurements [facility] Work Phone: Start: 01-04-2022 [facility] Work Phone: Start: 01-04-2022 Admission procedure [facility] Work Phone: Start: 01-03-2022 COVID-19 VACCINE (4 - Booster for Moderna series) COVID-19 VACCINE (4 - Booster for Moderna series) [facility] Start: 12-13-2021 Influenza vaccination [facility] Start: 12-06-2021 Nonstress test [facility] Work Phone: Start: 12-06-2021 Obstetric monitoring [facility] Work Phone: Start: 12-06-2021 Vital signs measurements [facility] Work Phone: Start: 12-06-2021 [facility] Work Phone: Start: 10-09-2021 End: 12-09-2021 GEST GLUC RAYMOND, 3-HR, 100 GM, FASTING GEST GLUC RAYMOND, 3-HR, 100 GM, FASTING Lab Routine Abnormal glucose in , antepartum Expected: 10/09/2021, Expires: 12/09/2021 [facility] Work Phone: Comment on above: Expected: 10/09/2021 , Expires: 12/09/2021 Start: 09-11-2021 End: 11-11-2021 CBC W Auto Differential panel - Blood CBC + DIFF Lab Routine 22 weeks gestation of History of delivery, currently Encounter for supervision of other normal in second trimester Expected: 09/11/2021, Expires: 11/11/2021 [facility] Work Phone: Comment on above: Expected: 09/11/2021 , Expires: 11/11/2021 Start: 09-11-2021 End: 11-11-2021 GEST GLUC SCREEN, 1-HR, 50 GM, NON-FASTING GEST GLUC SCREEN, 1-HR, 50 GM, NON-FASTING Lab Routine 22 weeks gestation of History of delivery, currently Encounter for supervision of other normal in second trimester Expected: 09/11/2021, Expires: 11/11/2021 [facility] Work Phone: Comment on above: Expected: 09/11/2021 , Expires: 11/11/2021 Start: 09-11-2021 End: 11-11-2021 SYPHILIS TOTAL W/REFLEX SYPHILIS TOTAL W/REFLEX Lab Routine 22 weeks gestation of History of delivery, currently Encounter for supervision of other normal in second trimester Expected: 09/11/2021, Expires: 11/11/2021 [facility] Work Phone: Comment on above: Expected: 09/11/2021 , Expires: 11/11/2021 Start: 07-24-2021 COVID-19 VACCINE (3 - Booster for Moderna series) COVID-19 VACCINE (3 - Booster for Moderna series) [facility] Start: 04-14-2021 DEPRESSION ASSESSMENT DEPRESSION ASS ESSMENT [facility] Start: 2019 HPV Vaccine (1 - 3-d ose SCDM series) HPV Vaccine (1 - 3-dose SCDM series) [facility] Start: 2011 Hepatitis B Vaccine (1 of 3 - 19+ 3-dose series) Hepatitis B Vaccine (1 of 3 - 19+ 3-dose series) [facility] Start: 2010 Anxiety Screening Anxiety Screening [facility] Start: 2010 Depression Screening Depression Scre ening [facility] Start: 2004 Adult depression screening assessment DEPRESSION SCREENING [facility] Start: 1992 HEPATITIS B (1 of 3 - 3-dose series) HEPATITIS B (1 of 3 - 3-dose series) [facility] Start: 1992 Hepatitis B Vaccine (1 of 3 - 3-dose series) Hepatitis B Vaccine (1 of 3 - 3-dose series) [facility] Bacteria identified in Urine by Culture URINE CULTURE Microbiology Routine with uncertain dates, antepartum Encounter for supervision of normal in multigravida 04/19/2024 9:05 AM EST [facility] Bacteria identified in Urine by Culture BACTERIAL CULTURE, URINE Microbiology Routine Supervision of high risk in third trimester (HCC) 30 weeks gestation of (HCC) Urinary frequency 09/27/2024 9:26 AM EDT [facility] Work Phone: Chlamydia trachomatis+Neisseria gonorrhoeae DNA [Presence] in Unspecified specimen by LUPIS with probe detection GONORRHEA/CHLAMYDIA NAAT Lab Routine with uncertain dates, antepartum Encounter for supervision of normal in multigravida 04/19/2024 9:05 AM EST [facility] Microscopic observat ion [Identifier] in Vaginal fluid by Gram stain BACT/JONI VAG GRAM STAIN Microbiology Routine Vaginal discharge Vaginal odor 03/05/2022 11:52 AM EST [facility] Work Phone: OBSTETRIC ULTRASOUND WHI OBSTETR IC ULTRASOUND WHI Anc Imaging Routine Diet controlled gestational diabetes mellitus (GDM) in third trimester 32 weeks gestation of Supervision of other high risk pregnancies, third trimester Ordered: 11/20/2021 [facility] Work Phone: Comment on above: Ordered: 11/20/2021 End: 05-04-2025 OBSTETRIC ULTRASOUND WHI OBSTETRIC ULTRASOUND WHI Anc Imaging Routine Encounter for supervision of normal in multigravida Hx of preeclampsia, prior , currently 9 weeks gestation of 1 Occurrences starting 05/04/2024 until 05/04/2025 [facility] Work Phone: Comment on above: 1 Occurrences starti ng 05/04/2024 until 05/04/2025 Patient Education [facility] Work Phone: Patient referral [facility] Work Phone: ROUTINE, GR OUP B STREP PCR ROUTINE, GROUP B STREP PCR Microbiology Routine 35 weeks gestation of Diet controlled gestational diabetes mellitus (GDM) in third trimester 12/13/2021 12:07 PM EDT [facility] Work Phone: ROUTINE, GR OUP B STREPTOCOCCUS BY PCR ROUTINE, GROUP B STREPTOCOCCUS BY PCR Microbiology Routine Supervision of high risk in third trimester (HCC) Hx of preeclampsia, prior , currently (HCC) 36 weeks gestation of ([facility]) 11/10/2024 11:19 AM EDT [facility] Work Phone: URINE OB DIP B/O URINE OB DIP B/ O Lab Routine 36 weeks gestation of Diet controlled gestational diabetes mellitus (GDM) in third trimester Supervision of other high risk pregnancies, first trimester Ordered: 12/19/2021 [facility] Work Phone: Comment on above: Ordered: 12/19/2021 URINE OB DIP B/O URINE OB DIP B/ O Lab Routine 37 weeks gestation of (HCC) Supervision of high risk in third trimester ([facility]) Ordered: 11/15/2024 [facility] Work Phone: Comment on above: Ordered: 11/15/2024 [facility] Immunizations Immunization Date Immunization Notes Care Provider Aleksandar rodriguez 09-15-2024 tetanus toxoid, redu easton diphtheria toxoid, and acellular pertussis vaccine, adsorbed Dante Waite MD Work Phone: [facility] 01-05-2022 influenza, injectabl e, quadrivalent, preservative free Dr. Kathy Vyas MD Work Phone: [facility] 01-05-2022 influenza, seasonal, injectable [facility] 01-05-2022 influenza virus vaccine, unspecified formulation Dante Waite MD Work Phone: [facility] 12-04-2021 tetanus toxoid, redu easton diphtheria toxoid, and acellular pertussis vaccine, adsorbed Manjula Diaz MD Work Phone: [facility] 01-13-2020 influenza virus vaccine, unspecified formulation Dante Waite MD Work Phone: [facility] Work Phone: 01-12-2020 influenza, injectabl e, quadrivalent, preservative free Dr. Kathy Vyas MD Work Phone: [facility] 01-12-2020 influenza, seasonal, injectable [facility] 01-12-2020 influenza, seasonal, injectable, preservative free Dante Waite MD Work Phone: [facility] Work Phone: 11-15-2019 tetanus toxoid, redu easton diphtheria toxoid, and acellular pertussis vaccine, adsorbed Dante Wiate MD Work Phone: [facility] Payers Date Payer Category Payer Self-pay [id number] 2022 [facility] PPO [id number] 2022 Unknown MARLENA TRIVEDI PPO [id number] 2022-Present [phone] [address] [place] [address] PPO [id number] 2022 Unknown [id number] 2020 Private Health Insurance [employer] OAP [id number] 2020-Present [phone] [address] [place] [address] Open Access [id number] 2020 Private Health Insurance [employer] OAP [id number] 2020-Present [phone] [address] [place] [address] Open Access [id number] Private Health Insurance [id number] Unknown [id number] Unknown [id number] Social History Date Type Detail Facility Start: 04-19-2011 End: 01-17-2022 Tobacco smoking status NHIS Never smoked tobacco [facility] Work Phone: Start: 04-19-2011 End: 01-17-2022 Tobacco use and exposure Smokeless tobacco non-user [facility] Work Phone: Start: 06-26-2021 End: 09-27-2024 Alcohol intake Current non-drinker of alcohol (finding) [facility] Start: 07-06-2019 History SDOH Financial 5 [facility] Start: 07-06-2019 History SDOH Food Worry 1 [facility] Start: 07-06-2019 History SDOH Transport Med 2 [facility] Start: 07-05-2019 Education 17 [facility] Start: 04-20-2021 [facility] Start: 1990 Sex Assigned At Not on file [facility] Start: 06-16-2021 End: 01-17-2022 Exposure to SARS-CoV-2 (event) Not sure [facility] Start: 01-10-2020 End: 09-16-2022 Tobacco smoking status NHIS Unknown if ever smoked [facility] Start: 1990 Sex Assigned At Female [facility] Start: 09-16-2022 End: 10-10-2023 History of Social function [facility] Start: 09-16-2022 End: 10-10-2023 Tobacco use panel [facility] Start: 03-15-2012 How hard is it for you to pay for the very basics like food, housing, medical care, and heating Not hard at all [facility] (I/We) worried whether (my/our) food would run out before (I/we) got money to buy more. Never true [facility] NEGATED: Highlighted row [facility] Medical Equipment Procedure Code Equipment Code [...] Assessment Result Facility 09-16-2022 Cognitive function Voice/Name [facility] Work Phone: Clinical Notes 11-22-2019 to 11-24-2024 [...] Supervision of high risk in third trimester ([facility]) Orders: URINE OB DIP B/O Hx of preeclampsia, prior , currently ([facility]) Orders: URINE OB DIP B/O Breech presentation with problem, single or unspecified fetus ([facility]) Planned cs Orders: URINE OB DIP B/O Anemia during in third trimester ([facility]) Continue PO iron Orders: URINE OB DIP B/O 38 weeks gestation of ([facility]) Kick counts and labor reviewed Orders: URINE OB DIP B/O Kasey Perez MD [facility] 11-24-2024 Miscellaneous Notes DM-Pt doing well. Denies vaginal Bleeding, Leaking fluid, or regular Contractions. Pt reports good movement Physical Exam: Gen: female in no apparent distress Abd: soft, Gravid. Non tender to palpation. See flow sheet @ 38.4 weeks Assessment & Plan Supervision of high risk in third trimester ([facility]) Orders: URINE OB DIP B/O Hx of preeclampsia, prior , currently ([facility]) Orders: URINE OB DIP B/O Breech presentation with problem, single or unspecified fetus ([facility]) Planned cs Orders: URINE OB DIP B/O Anemia during in third trimester ([facility]) Continue PO iron Orders: URINE OB DIP B/O 38 weeks gestation of ([facility]) Kick counts and labor reviewed Orders: URINE OB DIP B/O Kasey Perez MD documented in this encounter [facility] 11-24-2024 Instructions Milana Quintana MA - 11/24/2024 8:58 AM EDT SEQUENTIAL SCREENINGS [facility] offers sequential screenings for women who are [...] It will require an appointment with our unit technician. This is not an ultrasound performed [...] the above symptoms, contact our office at [phone] and ask to speak with a nurse. After hours, you can call doctors registry at [phone] OR call [facility] at [phone] and ask to have the doctor pulmonary disease specialist paged. If you consider this an emergency, dial 9-1-1 or go to your nearest emergency department. NEED HELP? Are you dealing with a violent or abusive relationship? Are you a victim of rape or sexual assult? Call [facility] [place] ([place]) 24 hour Crisis Hotline: 210.130.9387 or 769-353-0263. MANUAL Your Guide to a Healthy manual is now on-line. Visit [email or web address] to download your free copy documented in this encounter [facility] 11-23-2024 Note HNO ID: [id number] Author: MARIO ALBERTO TOMLINSON, ? Service: ? Author Type: Patient Outboard Motor Inspector Type: Progress Notes Filed: 11/23/2024 07:33 Note Text: POPULATION HEALTH NAVIGATION OUTREACH Action/I No outreach done added automotive product specialist via note Reason for Outreach Medicaid OB/Peds Care Gaps due: N/A Patient Contacted: Unable or unnecessary to reach patient: [place] automotive product specialist added Navigation Signature: Mario Alberto Tomlinson Population Health Navigator November 23, 2024 7:32 AM [facility] 11-23-2024 History of Present illness Narrative POPULATION HEALTH NAVIGATION OUTREACH Action/I No outreach done added automotive product specialist via note Reason for Outreach Medicaid OB/Peds Care Gaps due: N/A Patient Contacted: Unable or unnecessary to reach patient: [place] automotive product specialist added Navigation Signature: Mario Alberto Tomlinson Population Health Navigator November 23, 2024 7:32 AM documented in this encounter [facility] 11-23-2024 Note Patient Outreach (NE TNAV) HERB MORAN ([id number]) 1990 F Date Time Provider Department 11/23/24 MARIO ALBERTO TOMLINSON [facility] During your visit today, we recorded the following information about you: Mario Alberto Tomlinson 11/23/2024 7:33 AM Signed POPULATION HEALTH NAVIGATION OUTREACH Action/I No outreach done added automotive product specialist via note Reason for Outreach Medicaid OB/Peds Care Gaps due: N/A Patient Contacted: Unable or unnecessary to reach patient: Payette automotive product specialist added Navigation Signature: Mario Alberto Tomlinson Population [...] fir*05/29/2021 01/17/2022 Anemia during in third trimester ([facility]*10/09/2021 Supervision of high risk in second tr*04/19/2024 Hx of preeclampsia, prior , currently *04/19/2024 Breech presentation with problem ([facility]*11/10/2024 Encounter Status:Closed by MARIO ALBERTO TOMLINSON on 11/23/24 [facility] 11-18-2024 Note [facility] Medical Records Department [address] [place] [id number] History Physical Exam 11/18/24 0912 MR#: [id number] Acct: [id number] Name: DEANHERB DOREEN Rep #: [id number] : 1990 34 From: Dante Waite MD PCP: Dr. Kathy Vyas MD Status:PRE IN Location: [facility] History and Physical Date of Admission: 11/30/24 HPI: The patient is a 34 year old female presenting for pre-operative visit. She is scheduled for , for breech on 11/30/24. Procedure discussed along with risks, benefits and complications. Other alternatives discussed for management. Consent form signed? Yes. ? PAST MEDICAL HISTORY PAST MEDICAL HISTORYDiagnosisDate???Acne? Anemia?Gestational diabetes mellitus, class A1 ([facility])11/22/2019???Hx of preeclampsia, prior , currently ([facility])04/19/2024???Preeclampsia (HCC)? PAST SURGICAL HISTORY PAST SURGICAL HISTORYProcedureLateralityDate??? [...] Grandmother?Alzheimer's DiseaseMaternal Grandmother?HypertensionMate rnal Grandfather?LeukemiaMaternal Grandfather?HeartPaternal Grandmother? [place]???StrokePaternal Grandmother?HeartPaternal [id number]???CancerPaternal Grandfather? Skin???other (Brain Tumor (Cancer))Other? Maternal Great [...] Vyas MD; Dr. Dante Waite MD Signed [facility] 11-17-2024 Note HNO ID: [id number] Author: DANTE WAITE MD Service: ? Author Type: Physician Type: Progress Notes Filed: 11/18/2024 09:11 Note Text: [facility] 11-15-2024 Progress note [facility] 11-15-2024 History and physical note Note Date/Time November 15, 2024 12:53pm [facility] Medical Records Department [address] [place] [address] OB Triage Physician Note 11/15/24 1249 MR#: [id number] Acct: [id number] Name: HERB MORAN Rep #:[id number] : 1990 34 From: Dante Waite MD PCP: Dr. Kathy Vyas MD Status:REG CLI Y Location: [address] HPI - General General Date of Admission: 11/15/24 Date of Service: 11/15/24 Chief Complaint: breech HPI Narrative HERB MORAN, is a 34 F who presents Maternal Data Information Final EDIL: 12/02/24 Gestational age: 37 4/7 [facility] Medical History (Updated 11/15/24 @ 12:51 by [...] MD; Dr. Dante Waite MD ~ Signed [facility] Work Phone: 1(229) 488-389908-04-2025 History and physical note [facility] Medical Records Department [address] [place] [address] OB Triage Physician Note 11/15/24 1249 MR#: [id number] Acct: [id number] Name: HERB MORAN Rep #:[id number] : 1990 34 From: Dante Waite MD PCP: Dr. Kathy Vyas MD Status:REG CLI Y [facility] - General General Date of Admission: 11/15/24 Date of Service: 11/15/24 Chief Complaint: breech HPI Narrative HERB MORAN, is a 34 F who presents Maternal Data Information Final EDIL: 12/02/24 Gestational age: 37 4/7 [facility] Medical History (Updated 11/15/24 @ 12:51 by [...] MD; Dr. Dante Waite MD ~ Signed [facility]08-04-2025 Evaluation note* Diagnosis Onset Date Resolution Status Admit Date 37 weeks gestation of acut e November 15, 2024 10:35am Complete breech acute November 10:35am [facility] Work Phone: 1(759) 274-587308-04-2025 Progress note* Quick Notes - Dante Waite MD - 11/15/2024 10:34 AM EDT US confirms breech, back to maternal left. Desires attempted ECV. To [facility]. Dante Waite MD [facility]08-04-2025 Miscellaneous Notes* Quick Notes - Dante Waite MD - 11/15/2024 10:34 AM EDT US confirms breech, back to maternal left. Desires attempted ECV. To [facility]. Dante Waite MD documented in this encounterProtestant Hospital08-04-2025 Instructions* Patient Instructions* Sara Asencio MA - 11/15/2024 10:05 AM EDT SEQUENTIAL SCREENINGS [facility] offers sequential screenings for women who are [...] testing. It will require an appointment withour unit technician. This is not an ultrasound performed [...] the above symptoms, contact our office at [phone] and ask to speak with anurse. After hours, you can call doctors registry at [phone] OR call [facility] at [phone] ask to have the doctor pulmonary disease specialist paged. If you consider this an emergency, dial 9-1-8 or go to your nearest emergency department. NEED HELP? Are you dealing with a violent or abusive relationship? Are you a victim of rape or sexual assult? Call [facility] ([place]) 24 hour Crisis Hotline: 371.671.1798 or 943-696-8626. MANUAL Your Guide to a Healthy manual is now on-line. Visit [email or web address] to download your free copy documented in this encounterProtestant Hospital08-01-2025 Progress note* Quick Notes - Dante Waite MD - 11/12/2024 12:30 PM EDT Brief visit, still breech, plan f/u in 3 days and if breech trial ECV. Dante Waite MD` [facility]08-01-2025 Miscellaneous Notes* Quick Notes - Dante Waite MD - 11/12/2024 12:30 PM EDT Brief visit, still breech, plan f/u in 3 days and if breech trial ECV. Dante Waite MD` documented in this encounterProtestant Hospital08-01-2025 Instructions* Patient Instructions* Milana Quintana MA - 11/12/2024 10:49 AM EDT SEQUENTIAL SCREENINGS [facility] offers sequential screenings for women who are [...] testing. It will require an appointment withour unit technician. This is not an ultrasound performed [...] the above symptoms, contact our office at [phone] and ask to speak with anurse. After hours, you can call doctors registry at [phone] OR call [facility] at [phone] ask to have the doctor pulmonary disease specialist paged. If you consider this an emergency, dial 1-0- or go to your nearest emergency department. NEED HELP? Are you dealing with a violent or abusive relationship? Are you a victim of rape or sexual assult? Call [facility] ([facility] 24 hour Crisis Hotline: 288.229.1864 or 208-581-6271. MANUAL Your Guide to a Healthy manual is now on-line. Visit [email or web address] to download your free copy documented in this encounterProtestant Hospital07-31-2025 Telephone encounter Note * Telephone Encounter - Dante Waite MD - 11/11/2024 3:40 PM EDT work her in tomorrow am w me anytime for quick eval. Dante Waite MD [facility]07-31-2025 Miscellaneous Notes* Telephone Encounter - Dante Waite MD - 11/11/2024 3:40 PM EDT work her in tomorrow am w me anytime for quick eval. Dante Waite MD documented in this encounterProtestant Hospital07-30-2025 Progress note* Quick Notes - Dante Waite MD - 11/10/2024 10:47 AM EDT RR- VB No. LOF No. CTXS No. Movement: present. Other c/o: No. Medication list reviewed. SENSITIVE EXAM: Sensitive exam not performed. Physical Exam See Flow Sheet Abd: soft, nontender, gravid A/P 36w4d Estimated Date of Delivery: 12/04/24 Assessment & Plan Supervision of high risk in third trimester ([facility]) Orders: URINE OB DIP B/O ROUTINE, GROUP B STREPTOCOCCUS BY PCR Hx of preeclampsia, prior , currently ([facility]) bp stable, call for signs/symptoms of preeclampsia Orders: URINE OB DIP B/O ROUTINE, GROUP B STREPTOCOCCUS BY PCR 36 weeks gestation of ([facility]) Orders: URINE OB DIP B/O ROUTINE, GROUP B STREPTOCOCCUS BY PCR Breech presentation with problem, single or unspecified fetus ([facility]) r/b/a to ECV reviewed, desires to attempt if still breech next week. kick counts US confirms breech. Dante Waite M.D. [facility]07-30-2025 Miscellaneous Notes* Quick Notes - Dante Waite MD - 11/10/2024 10:47 AM EDT RR- VB No. LOF No. CTXS No. Movement: present. Other c/o: No. Medication list reviewed. SENSITIVE EXAM: Sensitive exam not performed. Physical Exam See Flow Sheet Abd: soft, nontender, gravid A/P 36w4d Estimated Date of Delivery: 12/04/24 Assessment & Plan Supervision of high risk in third trimester ([facility]) Orders: URINE OB DIP B/O ROUTINE, GROUP B STREPTOCOCCUS BY PCR Hx of preeclampsia, prior , currently ([facility]) bp stable, call for signs/symptoms of preeclampsia Orders: URINE OB DIP B/O ROUTINE, GROUP B STREPTOCOCCUS BY PCR 36 weeks gestation of ([facility]) Orders: URINE OB DIP B/O ROUTINE, GROUP B STREPTOCOCCUS BY PCR Breech presentation with problem, single or unspecified fetus ([facility]) r/b/a to ECV reviewed, desires to attempt if still breech next week. kick counts US confirms breech. Dante Waite M.D. documented in this encounterProtestant Hospital07-30-2025 Instructions* Patient Instructions* Milana Quintana MA - 11/10/2024 10:41 AM EDT SEQUENTIAL SCREENINGS [facility] offers sequential screenings for women who are [...] testing. It will require an appointment withour unit technician. This is not an ultrasound performed [...] the above symptoms, contact our office at [phone] and ask to speak with anurse. After hours, you can call doctors registry at [phone] OR call [facility] at [phone] ask to have the doctor pulmonary disease specialist paged. If you consider this an emergency, dial 6-5-1 or go to your nearest emergency department. NEED HELP? Are you dealing with a violent or abusive relationship? Are you a victim of rape or sexual assult? Call [facility] ([place]) 24 hour Crisis Hotline: 795.290.8241 or 818-946-3355. MANUAL Your Guide to a Healthy manual is now on-line. Visit [email or web address] to download your free copy documented in this encounterProtestant Hospital07-16-2025 Progress note* Quick Notes - Datne Waite MD - 10/27/2024 8:49 AM EDT RR- VB No. LOF No. CTXS few BH Movement: present. Other c/o: denies AMAYA or visual changes Medication list reviewed. SENSITIVE EXAM: Sensitive exam not performed. Physical Exam See Flow Sheet Abd: soft, nontender, gravid Ext: edema: Trace A/P 34w4d Estimated Date of Delivery: 12/04/24 Problem List Items Addressed This Visit Anemia during in third trimester ([facility]) Overview September 16, 2024 10.3 hemoglobin. Oral iron started. Macarena Perez, GARETH.DIMPLING MACHINE OPERATOR Relevant Orders URINE OB DIP B/O (Completed) Hx of preeclampsia, prior , currently ([facility]) Relevant Orders URINE OB DIP B/O (Completed) Other Visit Diagnoses Supervision of high risk in third trimester ([facility]) - Primary Relevant Orders URINE OB DIP B/O (Completed) 34 weeks gestation of ([facility]) no signs or symptoms of preeclampsia, cont. to monitor kick counts f/u in 2 weeks or prn likely would elect for 39 week induction Dante Waite M.D. [facility]07-16-2025 Miscellaneous Notes* Quick Notes - Dante Waite [...] This Visit Anemia during in third trimester ([facility]) Overview September 16, 2024 10.3 hemoglobin. Oral iron started. Macarena Perez, GARETH.DIMPLING MACHINE OPERATOR Relevant Orders URINE OB DIP B/O (Completed) Hx of preeclampsia, prior , currently ([facility]) Relevant Orders URINE OB DIP B/O (Completed) Other Visit Diagnoses Supervision of high risk in third trimester ([facility]) - Primary Relevant Orders URINE OB DIP B/O (Completed) 34 weeks gestation of ([facility]) no signs or symptoms of preeclampsia, cont. to monitor kick counts f/u in 2 weeks or prn likely would elect for 39 week induction Dante Waite M.D. documented in this encounterProtestant Hospital07-16-2025 Instructions* Patient Instructions* Milana Quintana MA - 10/27/2024 8:42 AM EDT SEQUENTIAL SCREENINGS [facility] offers sequential screenings for women who are [...] testing. It will require an appointment withour unit technician. This is not an ultrasound performed [...] the above symptoms, contact our office at [phone] and ask to speak with anurse. After hours, you can call doctors registry at [phone] OR call [facility] at [phone] ask to have the doctor pulmonary disease specialist paged. If you consider this an emergency, dial 1-1-4 or go to your nearest emergency department. NEED HELP? Are you dealing with a violent or abusive relationship? Are you a victim of rape or sexual assult? Call [facility] ([place]) 24 hour Crisis Hotline: 603.999.9916 or 065-267-4802. MANUAL Your Guide to a Healthy manual is now on-line. Visit [email or web address] to download your free copy documented in this encounterProtestant Hospital07-02-2025 Progress note* Quick Notes - Dante Waite MD - 10/13/2024 8:42 AM EDT RR- VB No. LOF No. CTXS No. Movement: present. Other c/o: No. Medication list reviewed. SENSITIVE EXAM: Sensitive exam not performed. Physical Exam See Flow Sheet Abd: soft, nontender, gravid Ext: edema: Trace A/P 32w4d Estimated Date of Delivery: 12/04/24 Assessment & Plan Supervision of high risk in third trimester ([facility]) Orders: COMPLETE BLOOD COUNT; Future Hx of preeclampsia, prior , currently ([facility]) bp stable Orders: COMPLETE BLOOD COUNT; Future Anemia during in third trimester ([facility]) Orders: COMPLETE BLOOD COUNT; Future 32 weeks gestation of ([facility]) Orders: COMPLETE BLOOD COUNT; Future f/u in 2 weeks or prn cont. fe for anemia, last hgb 10.7 no need to repeat at this time Dante Waite M.D. [facility]07-02-2025 Miscellaneous Notes* Quick Notes - Dante Waite MD - 10/13/2024 8:42 AM EDT RR- VB No. LOF No. CTXS No. Movement: present. Other c/o: No. Medication list reviewed. SENSITIVE EXAM: Sensitive exam not performed. Physical Exam See Flow Sheet Abd: soft, nontender, gravid Ext: edema: Trace A/P 32w4d Estimated Date of Delivery: 12/04/24 Assessment & Plan Supervision of high risk in third trimester ([facility]) Orders: COMPLETE BLOOD COUNT; Future Hx of preeclampsia, prior , currently ([facility]) bp stable Orders: COMPLETE BLOOD COUNT; Future Anemia during in third trimester ([facility]) Orders: COMPLETE BLOOD COUNT; Future 32 weeks gestation of ([facility]) Orders: COMPLETE BLOOD COUNT; Future f/u in 2 weeks or prn cont. fe for anemia, last hgb 10.7 no need to repeat at this time Dante Waite M.D. documented in this encounterProtestant Hospital06-23-2025 Telephone encounter Note * Telephone Encounter - Cem Back RN - 10/04/2024 1:42 PM EDT Faxed. Cem Back RN [facility]06-23-2025 Miscellaneous Notes* Telephone Encounter - Cem Back RN - 10/04/2024 1:42 PM EDT Faxed. Cem Back RN * Telephone Encounter - Mare Larios RN - 10/04/2024 8:49 AM EDT Received breast pump RX from [employer]. To RR to sign. Mare Larios RN documented in this encounterProtestant Hospital06-23-2025 Telephone encounter Note * Telephone Encounter - Mare Larios RN - 10/04/2024 8:49 AM EDT [facility] To RR to sign. Mare Larios RN [facility]06-16-2025 NoteHNO ID: [id number] Author: TARA PARKS APRN.[facility] Service: ? Author Type: Dermatopathologist Type: Progress Notes Filed: 09/27/2024 09:21 Note [...] to call RTO as scheduled. Tara Parks APRN.CNOhio State Health System06-16-2025 History of Present illness Narrative* Tara Parks [...] scheduled. Tara Parks APRN.CNM documented in this encounterProtestant Hospital06-16-2025 Instructions* Patient Instructions* Cody France MA - 09/27/2024 8:42 AM EDT SEQUENTIAL SCREENINGS [facility] offers sequential screenings for women who are [...] testing. It will require an appointment withour unit technician. This is not an ultrasound performed [...] the above symptoms, contact our office at [phone] and ask to speak with anurse. After hours, you can call doctors registry at [phone] OR call [facility] at [phone] ask to have the doctor pulmonary disease specialist paged. If you consider this an emergency, dial 4-0-5 or go to your nearest emergency department. NEED HELP? Are you dealing with a violent or abusive relationship? Are you a victim of rape or sexual assult? Call [facility] ([place]) 24 hour Crisis Hotline: 989.873.8646 or 121-780-4705. MANUAL Your Guide to a Healthy manual is now on-line. Visit [email or web address] to download your free copy documented in this encounterProtestant Hospital06-04-2025 Progress note* Quick Notes - Dante Waite [...] for vaccination tdap today Dante Waite M.D. [facility]06-04-2025 Miscellaneous Notes* Quick Notes - Dante Waite [...] today Dante Waite M.D. documented in this encounterProtestant Hospital06-04-2025 NoteHNO ID: [id number] Author: MARIANELA CAMPOS MA Service: ? Author Type: Gas Engine Repairer Type: Progress Notes Filed: 09/15/2024 09:17 Note [...] severely ill: Yes Patient denies history of Guillain-Billings Syndrome (a severe paralytic illness): Yes Tdap Adacel injection was given without incident. See immunizations for details of immunizations administered today. VIS sheet provided: Yes Provider Dr Waite was present in office at time of injection. [facility] History of Present illness Narrative* Marianela Campos [...] severely ill: Yes Patient denies history of Guillain-Billings Syndrome (a severe paralytic illness): Yes Tdap Adacel injection was given without incident. See immunizations for details of immunizations administered today. VIS sheet provided: Yes Provider Dr Waite was present in office at time of injection. Milana Quintana MA documented in this encounterProtestant Hospital05-07-2025 Progress note* Quick Notes - Dante Waite [...] or prn cont. PNV Dante Waite M.D. [facility]05-07-2025 Miscellaneous Notes* Quick Notes - Dante Waite [...] PNV Dante Waite M.D. documented in this encounterProtestant Hospital05-07-2025 Instructions* Patient Instructions* Milana Quintana MA - 08/18/2024 8:19 AM EDT SEQUENTIAL SCREENINGS [facility] offers sequential screenings for women who are [...] testing. It will require an appointment withour unit technician. This is not an ultrasound performed [...] the above symptoms, contact our office at [phone] and ask to speak with anurse. After hours, you can call doctors registry at [phone] OR call [facility] at [phone] ask to have the doctor pulmonary disease specialist paged. If you consider this an emergency, dial 9-4 or go to your nearest emergency department. NEED HELP? Are you dealing with a violent or abusive relationship? Are you a victim of rape or sexual assult? Call [facility] ([place]) 24 hour Crisis Hotline: 373.681.6539 or 202-564-7893. MANUAL Your Guide to a Healthy manual is now on-line. Visit [email or web address] to download your free copy documented in this encounterProtestant Hospital04-09-2025 NoteHNO ID: [id number] Author: MACARENA PEREZ APRN.DIMPLING MACHINE OPERATOR Service: ? Author Type: Nurse Practitioner Type: [...] and LDA 2. 20 weeks gestation of ([facility]) - ICD9: V22.2, ICD10: Z3A.20 - Anatomy ultrasound today, report pending 3. Hx of preeclampsia, prior , currently ([facility]) - ICD9: V23.49, ICD10: O09.299 4. Hx of gestational diabetes in prior , currently ([facility]) - ICD9: V23.49, ICD10: O09.299, Z86.32 PTL precautions reviewed. RTO in 4 weeks or sooner as needed. Macarena Perez APRN.CNPTr[facility] Health System [facility]04-09-[facility]25 History of Present illness Narrative* Macarena Perez [...] Supervision of high risk in second trimester ([facility]) - ICD9: V23.9, ICD10: O09.92 (primary diagnosis) - Continue PNV and LDA 2. 20 weeks gestation of ([facility]) - ICD9: V22.2, ICD10: Z3A.20 - Anatomy ultrasound today, report pending 3. Hx of preeclampsia, prior , currently ([facility]) - ICD9: V23.49, ICD10: O09.299 4. Hx of gestational diabetes in prior , currently ([facility]) - ICD9: V23.49, ICD10: O09.299, Z86.32 PTL precautions reviewed. RTO in 4 weeks or sooner as needed. Macarena Perez APRN.DIMPLING MACHINE OPERATOR documented in this encounterProtestant Hospital04-09-2025 Instructions* Patient Instructions* Ligia Willard MA - 07/21/2024 2:31 PM EDT SEQUENTIAL SCREENINGS [facility] offers sequential screenings for women who are [...] testing. It will require an appointment withour unit technician. This is not an ultrasound performed [...] the above symptoms, contact our office at [phone] and ask to speak with anurse. After hours, you can call doctors registry at [phone] OR call [facility] at [phone] ask to have the doctor pulmonary disease specialist paged. If you consider this an emergency, dial 9--2 or go to your nearest emergency department. NEED HELP? Are you dealing with a violent or abusive relationship? Are you a victim of rape or sexual assult? Call [facility] ([place]) 24 hour Crisis Hotline: 193.406.9358 or 369-187-5009. MANUAL Your Guide to a Healthy manual is now on-line. Visit [email or web address] to download your free copy documented in this encounterProtestant Hospital03-12-2025 Progress note* Quick Notes - Dante Waite [...] ASA declines aneuploidy screening Dante Waite M.D. [facility]03-12-2025 Miscellaneous Notes* Quick Notes - Dante Waite [...] screening Dante Waite M.D. documented in this encounterProtestant Hospital02-19-2025 Progress note* Quick Notes - Dante Waite MD - 06/02/2024 11:39 AM EST RR- Doing well overall. No VB. Taking PNV. F/u in 2 weeks or prn. D/w her aneuploidy screening and declines at this time. Cont. asa and pNV. Dante Waite MD [facility]02-19-2025 Miscellaneous Notes* Quick Notes - Dante Waite MD - 06/02/2024 11:39 AM EST RR- Doing well overall. No VB. Taking PNV. F/u in 2 weeks or prn. D/w her aneuploidy screening and declines at this time. Cont. asa and pNV. Dante Waite MD documented in this encounterProtestant Hospital02-19-2025 Instructions* Patient Instructions* Milana Quintana MA - 06/02/2024 11:23 AM EST SEQUENTIAL SCREENINGS [facility] offers sequential screenings for women who are [...] testing. It will require an appointment withour unit technician. This is not an ultrasound performed [...] the above symptoms, contact our office at [phone] and ask to speak with anurse. After hours, you can call doctors registry at [phone] OR call [facility] at [phone] ask to have the doctor pulmonary disease specialist paged. If you consider this an emergency, dial 3-6-9 or go to your nearest emergency department. NEED HELP? Are you dealing with a violent or abusive relationship? Are you a victim of rape or sexual assult? Call [facility] ([place]) 24 hour Crisis Hotline: 288.185.9649 or 401-419-8489. MANUAL Your Guide to a Healthy manual is now on-line. Visit [email or web address] to download your free copy documented in this encounterProtestant Hospital02-04-2025 Progress note* Quick Notes - Dante Waite MD - 05/18/2024 8:52 AM EST RR- doing well overall. No VB. Taking PNV. A little tired otherwise doing well. PLans to start ASA soon. Declines NIPT for now. Dante Waite MD [facility]02-04-2025 Miscellaneous Notes* Quick Notes - Dante Waite MD - 05/18/2024 8:52 AM EST RR- doing well overall. No VB. Taking PNV. A little tired otherwise doing well. PLans to start ASA soon. Declines NIPT for now. Dante Waite MD documented in this encounterProtestant Hospital02-04-2025 Instructions* Patient Instructions* Marianela Campos MA - 05/18/2024 8:24 AM EST SEQUENTIAL SCREENINGS [facility] offers sequential screenings for women who are [...] testing. It will require an appointment withour unit technician. This is not an ultrasound performed [...] the above symptoms, contact our office at [phone] and ask to speak with anurse. After hours, you can call doctors registry at [phone] OR call [facility] at [phone] ask to have the doctor pulmonary disease specialist paged. If you consider this an emergency, dial 9--1 or go to your nearest emergency department. NEED HELP? Are you dealing with a violent or abusive relationship? Are you a victim of rape or sexual assult? Call [facility] ([place]) 24 hour Crisis Hotline: 704.750.5897 or 518-048-2172. MANUAL Your Guide to a Healthy manual is now on-line. Visit [email or web address] to download your free copy documented in this encounterProtestant Hospital01-21-2025 NoteHNO ID: [id number] Author: DAYANA PERRY MD Service: ? Author Type: Physician Type: Progress Notes Filed: 05/04/2024 14:03 Note Text: The patient presents for requested ultrasound. Full report available in the Imaging tab in [employer]force. Dayana Perry [facility]01-21-2025 History of Present illness Narrative* Dayana Perry MD - 05/04/2024 2:01 PM EST The patient presents for requested ultrasound. Full report available in the Imaging tab in [employer]. Dayana Perry MD documented in this encounterProtestant Hospital01-21-2025 Progress note* Quick Notes - Dante Waite MD - 05/04/2024 9:13 AM EST RR- No VB/LOF. Taking pNV. D/w her ASA prophylaxis. F/u in 2 weeks or prn to check FHTs, schedule early anatomy scan. Recommend cont. exercise and follow diabetic diet to decrease risk GDM. Dante Vargas MD [facility]01-21-2025 Miscellaneous Notes* Quick Notes - Dante Waite MD - 05/04/2024 9:13 AM EST RR- No VB/LOF. Taking pNV. D/w her ASA prophylaxis. F/u in 2 weeks or prn to check FHTs, schedule early anatomy scan. Recommend cont. exercise and follow diabetic diet to decrease risk GDM. Dante Vargas MD documented in this encounterProtestant Hospital01-21-2025 Instructions* Patient Instructions* Milana Quintana MA - 05/04/2024 8:33 AM EST SEQUENTIAL SCREENINGS [facility] offers sequential screenings for women who are [...] testing. It will require an appointment withour unit technician. This is not an ultrasound performed [...] the above symptoms, contact our office at [phone] and ask to speak with anurse. After hours, you can call doctors registry at [phone] OR call [facility] at [phone] ask to have the doctor pulmonary disease specialist paged. If you consider this an emergency, dial 9--1 or go to your nearest emergency department. NEED HELP? Are you dealing with a violent or abusive relationship? Are you a victim of rape or sexual assult? Call [facility] ([place]) 24 hour Crisis Hotline: 885.309.2358 or 982-517-2042. MANUAL Your Guide to a Healthy manual is now on-line. Visit [email or web address] to download your free copy documented in this encounterProtestant Hospital01-06-2025 History of Present illness Narrative* Milana Quintana MA - 04/19/2024 8:15 AM EST OB point of care ultrasound was performed. See imaging tab for details. Milana Quintana MA * Mai Blanton APRN.BETITO - 04/19/2024 8:03 AM EST INITIAL OB ASSESSMENT Patient declined bridal consultant. 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 As applicable, any other physician, advance practice provider, medical student, or other health professional student that will be observing or involved in the sensitive examination for educational or training purposes was discussed with the Patient or Authorized Zoo Veterinarian. The Patient or Authorized Zoo Veterinarian has agreed to proceed with the sensitive [...] Your guide to a health and the Home Manager. Reviewed midwifery and director check services that are available. 2) Screening: Hemoglobin [...] up in 4 weeks or sooner prn. aMi Blanton APRN.CNP documented in this encounterProtestant Hospital01-06-2025 NoteHNO ID: [id number] Author: MILANA QUINTANA MA Service: ? Author Type: Gas Engine Repairer Type: Progress Notes Filed: 04/19/2024 09:03 Note Text: OB point of care ultrasound was performed. See imaging tab for details. [facility]25 NoteHNO ID: [id number] Author: MAI BLANTON APRN.DIMPLING MACHINE OPERATOR Service: ? Author Type: Nurse Practitioner Type: Progress Notes Filed: 04/19/2024 09:03 Note Text: INITIAL OB ASSESSMENT Patient declined bridal consultant. 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 [email or web address] documented in this encounterProtestant Hospital12-11-2024 Telephone encounter Note * Telephone Encounter - Adelaide Altamirano RN - 03/24/2024 10:57 AM EST New OB appointment is not until 04/19/24. [facility]12-11-[facility]24 Miscellaneous Notes* Telephone Encounter - Adelaide Altamirano RN - 03/24/2024 10:57 AM EST New OB appointment is not until 04/19/24. documented in this encounterProtestant Hospital06-28-2024 History of Present illness Narrative* Dante Waite MD - 10/10/2023 1:37 PM EDT Senior Bioinformatics Scientist offered: Patient declines. Mansi is a 33 [...] L2 SAB0 IAB0 Ectopic0 Multiple0 Live Births2 [place] History LMP: 10/02/2023 (Exact Date), Unknown Age at Menarche: Age at First : Age at Menopause: [place] History Comments: Sexual Activity: Yes; Male Contraception: [...] Grandfather Leukemia Maternal Grandfather Heart Paternal Grandmother [place] Stroke Paternal Grandmother Heart Paternal Grandfather 48 [...] external genitalia normal, normal [place]th[place]'s glands, urethra, [place]'s glands, no vulvar lesions, no cervical lesions, [...] needed Dante Waite MD documented in this encounterProtestant Hospital06-07-2024 Telephone encounter Note * Telephone Encounter - Itzel Santiago RN - 09/19/2023 11:39 AM EDT Annual scheduled with RR 11/25/23. Requesting 90 day supply. Requested Prescriptions Pending Prescriptions Disp Refills Desogestrel-Ethinyl Estradiol (KARIVA, 28,) 0.15-0.02 mgx21 /0.01 mg x 5 per tablet 84 tablet 0 Sig: Take 1 tablet by mouth once daily. Itzel Santiago RN [facility]06-07-2024 Miscellaneous Notes* Telephone Encounter - Itzel Santiago RN - 09/19/2023 11:39 AM EDT Annual scheduled with RR 11/25/23. Requesting 90 day supply. Requested Prescriptions Pending Prescriptions Disp Refills Desogestrel-Ethinyl Estradiol (KARIVA, 28,) 0.15-0.02 mgx21 /0.01 mg x 5 per tablet 84 tablet 0 Sig: Take 1 tablet by mouth once daily. Itzel Santiago RN documented in this encounterProtestant Hospital03-25-2024 Miscellaneous Notes* Telephone Encounter - Adelaide Altamirano RN - 07/07/2023 12:08 PM EDT [facility]. PSS: Please contact patient to schedule annual exam. Adelaide Altamirano RN documented in this encounterProtestant Hospital11-27-2023 Miscellaneous Notes* Telephone Encounter - Tara Parks APRN.CNM - 03/10/2023 1:37 PM EST Order signed. Tara Parks APRN.CNM * Telephone Encounter - Mare Larios RN - 03/10/2023 10:42 AM EST UA and urine culture orders pending. documented in this encounterProtestant Hospital11-24-2023 Miscellaneous Notes* Telephone Encounter - Mare Larios RN - 03/07/2023 9:29 AM EST Please review in RR's absence. Diflucan RX pending. documented in this encounterProtestant Hospital06-05-2023 History of Present illness Narrative* Raimundo Ramon [...] 16, 2022 9:26 AM documented in this encounterProtestant Hospital06-05-2023 History of Present illness Narrative* [address] [...] mouth. (Patient not taking: Reported on 03/05/2022) Ggapmaha-Xa-Yuq-Fe-FA ( VITAMIN) tab Take 1 tablet by [...] room for further evaluation. Report sent to [facility] by ER passport. Best [address] MD documented in this encounterProtestant Hospital04-25-2023 Miscellaneous Notes* Telephone Encounter - Kaila Pruitt LPN - 08/06/2022 7:39 AM EDT Pt to check with pharmacy to see if her insurance will allow more than one pack per month to be dispensed. Kaila Pruitt LPN documented in this encounterProtestant Hospital03-23-2023 Miscellaneous Notes* Telephone Encounter - Dante Waite MD - 07/04/2022 8:34 AM EDT I spent 5 minutes reviewing chart, medication history, replying to patient and sending a new prescription. Dante Waite MD documented in this encounterProtestant Hospital11-25-2022 Miscellaneous Notes* Telephone Encounter - Kaila Pruitt [...] leandro. Alban Hooker MD documented in this encounterProtestant Hospital11-23-2022 Miscellaneous Notes* Telephone Encounter - Itzel Santiago RN - 03/06/2022 10:38 AM EST Previous rx only dispensed 1 tablet. Pharmacy requesting new corrected rx. Requested Prescriptions Pending Prescriptions Disp Refills Norethindrone, Contraceptive, 0.35 mg tablet [Pharmacy Med Name: NORETHINDRONE 0.35 MG TABLET] 28 tablet 5 Sig: TAKE 1 TABLET BY MOUTH EVERY DAY Itzel Santiago RN documented in this encounterProtestant Hospital11-22-2022 History of Present illness Narrative* Alban Hooker [...] L2 SAB0 IAB0 Ectopic0 Multiple0 Live Births2 [place] History LMP: 04/06/2021 (Exact Date), Age at Menarche: Age at First : Age at Menopause: Enamel Dipper History Comments: Sexual Activity: Yes; Male Contraception: [...] Grandfather Leukemia Maternal Grandfather Heart Paternal Grandmother [place] Stroke Paternal Grandmother Heart Paternal Grandfather 48 [...] Take 1 tablet by mouth once daily. Fnbavqar-Rz-Cqa-Fe-FA ( VITAMIN) tab Take 1 tablet by [...] external genitalia normal, normal Bartholin's glands, urethra, [place]'s glands, no vulvar lesions, no cervical lesions, [...] Low Alban Hooker MD documented in this encounterProtestant Hospital11-03-2022 History of Present illness Narrative* Kasey Yang MD - 02/14/2022 10:34 AM EDT Senior Bioinformatics Scientist offered: Patient declines. VISIT Herb Moran is a 31 year old year old here for visit. Delivery Summary: ROS/ Recovery: Feeding: Breast feeding problems: None Menses since delivery: light flow Menstrual pattern prior to : Regular periods [place] since delivery: Not resumed Depression: denies symptoms [...] Grandfather Leukemia Maternal Grandfather Heart Paternal Grandmother [place] Stroke Paternal Grandmother Heart Paternal Grandfather 48 [...] external genitalia normal, normal [place]olin's glands, urethra, [place]'s glands, no vulvar lesions, no cervical lesions, [...] PRN Kasey Perez MD documented in this encounterProtestant Hospital10-06-2022 History of Present illness Narrative* Dante Waite [...] issues Sleep: no sleep concerns, feels rested [place] since delivery: Not resumed Emotional support: Yes [...] Making Dante Waite MD documented in this encounterProtestant Hospital09-24-2022 Hospital Discharge instructions Additional Instructions Date of Discharge: 01/05/22[facility] Work Phone: 1(576) 871-454909-23-2022 Miscellaneous Notes* Telephone Encounter - Itzel Santiago RN - 01/04/2022 4:41 PM EDT Patient delivered via by Dr. aWite on 01/04/22 at [facility]. See OB history. Itzel Santiago RN documented in this encounterProtestant Hospital09-20-2022 Miscellaneous Notes* Quick Notes - Dante Waite MD - 01/01/2022 12:03 PM EDT RR- No VB/LOF. Good FM. No regular ctxs. No AMAYA or visual changes. Abd- soft, nontender, gravid. Ext1+ edema, 2+ DTRs, no clonus. Recommend delivery at 39 weeks w/ h/o preeclampsia, BP trending up and GDMA12. R/B/A/P reviewed. She desires to proceed. Consent signed. Pelvis clinically adequate. Last growth US EFW 60%, AGA. Dante Waite MD documented in this encounterProtestant Hospital09-20-2022 Instructions* Patient Instructions* Milana Quintana Al - 01/01/2022 11:27 AM EDT SEQUENTIAL SCREENINGS [facility] offers sequential screenings for women who are [...] testing. It will require an appointment withour unit technician. This is not an ultrasound performed [...] the above symptoms, contact our office at [phone] and ask to speak with anurse. After hours, you can call doctors registry at [phone] OR call [facility] at [phone] ask to have the doctor pulmonary disease specialist paged. If you consider this an emergency, dial 9--1 or go to your nearest emergency department. NEED HELP? Are you dealing with a violent or abusive relationship? Are you a victim of rape or sexual assult? Call [facility] ([place]) 24 hour Crisis Hotline: 723.631.8822 or 058-827-6943. MANUAL Your Guide to a Healthy manual is now on-line. Visit [email or web address] to download your free copy documented in this encounterProtestant Hospital09-13-2022 Miscellaneous Notes* Quick Notes - Kasey Yang [...] reviewed. Kasey Perez MD documented in this encounterProtestant Hospital09-13-2022 Instructions* Patient Instructions* Nevaeh Subramanian Ma - 12/25/2021 9:16 AM EDT SEQUENTIAL SCREENINGS [facility] offers sequential screenings for women who are [...] testing. It will require an appointment withour unit technician. This is not an ultrasound performed [...] the above symptoms, contact our office at [phone] and ask to speak with anurse. After hours, you can call doctors registry at [phone] OR call [facility] at [phone] ask to have the doctor pulmonary disease specialist paged. If you consider this an emergency, dial 9-1-1 or go to your nearest emergency department. NEED HELP? Are you dealing with a violent or abusive relationship? Are you a victim of rape or sexual assult? Call [facility] ([place]) 24 hour Crisis Hotline: 252.476.7055 or 027-849-5329. MANUAL Your Guide to a Healthy manual is now on-line. Visit [email or web address] to download your free copy documented in this encounterProtestant Hospital09-07-2022 Miscellaneous Notes* Quick Notes - Dante Waite MD - 12/19/2021 3:22 PM EDT RR- No VB/LOF. Good FM. BS log reviewed. Excellent control. Some increased pelvic pressure. Irreg ctxs. BP stable. No edema. Kick counts. F/u in 1 week. Taking iron. Dante Waite MD documented in this encounterProtestant Hospital09-07-2022 Instructions* Patient Instructions* Milana Quintana Ma - 12/19/2021 3:07 PM EDT SEQUENTIAL SCREENINGS [facility] offers sequential screenings for women who are [...] testing. It will require an appointment withour unit technician. This is not an ultrasound performed [...] the above symptoms, contact our office at [phone] and ask to speak with anurse. After hours, you can call doctors registry at [phone] OR call [facility] at [phone] ask to have the doctor pulmonary disease specialist paged. If you consider this an emergency, dial 3-8-5 or go to your nearest emergency department. NEED HELP? Are you dealing with a violent or abusive relationship? Are you a victim of rape or sexual assult? Call [facility] ([place]) 24 hour Crisis Hotline: 429.134.4165 or 149-157-7441. MANUAL Your Guide to a Healthy manual is now on-line. Visit [email or web address] to download your free copy documented in this encounterProtestant Hospital09-01-2022 Miscellaneous Notes* Quick Notes - Dante Waite [...] . Dante Waite M.D. documented in this encounterProtestant Hospital09-01-2022 Instructions* Patient Instructions* Milana Quintana Ma - 12/13/2021 11:21 AM EDT SEQUENTIAL SCREENINGS [facility] offers sequential screenings for women who are [...] testing. It will require an appointment withour unit technician. This is not an ultrasound performed [...] the above symptoms, contact our office at [phone] and ask to speak with anurse. After hours, you can call doctors registry at [phone] OR call [facility] at [phone] ask to have the doctor pulmonary disease specialist paged. If you consider this an emergency, dial 9-1-6 or go to your nearest emergency department. NEED HELP? Are you dealing with a violent or abusive relationship? Are you a victim of rape or sexual assult? Call [facility] ([place]) 24 hour Crisis Hotline: 741.173.1409 or 687-945-7115. MANUAL Your Guide to a Healthy manual is now on-line. Visit [email or web address] to download your free copy documented in this encounterProtestant Hospital08-23-2022 History of Present illness Narrative* Sara Asencio [...] severely ill: Yes Patient denies history of Guillain-Billings Syndrome (a severe paralytic illness): Yes Tdap Adacel injection was given without incident. See immunizations for details of immunizations administered today. VIS sheet provided: Yes Provider Dante Waite MD was present in office at time of injection. Sara Asencio MA documented in this encounterProtestant Hospital08-23-2022 Miscellaneous Notes* Quick Notes - Dante Waite [...] TDAP today.Dante Waite MD documented in this encounterProtestant Hospital08-23-2022 Instructions* Patient Instructions* Milana Quintana Ma - 12/04/2021 9:50 AM EDT SEQUENTIAL SCREENINGS [facility] offers sequential screenings for women who are [...] testing. It will require an appointment withour unit technician. This is not an ultrasound performed [...] the above symptoms, contact our office at [phone] and ask to speak with anurse. After hours, you can call doctors registry at [phone] OR call [facility] at [phone] ask to have the doctor pulmonary disease specialist paged. If you consider this an emergency, dial 9-2-5 or go to your nearest emergency department. NEED HELP? Are you dealing with a violent or abusive relationship? Are you a victim of rape or sexual assult? Call [facility] [place] ([place]) 24 hour Crisis Hotline: 994.750.3700 or 509-023-5855. MANUAL Your Guide to a Healthy manual is now on-line. Visit [email or web address] to download your free copy documented in this encounterProtestant Hospital08-09-2022 Miscellaneous Notes* Quick Notes - Dante Waite MD - 11/20/2021 10:20 AM EDT RR_ Doing well overall. G ood FM. BS log reviewed, excellent control, continue to monitor. Check USfor growth. C ont. progesterone injections until 36 weeks. kick counts. BPstable. Cont. PNV and Saul Waite MD documented in this encounterProtestant Hospital08-09-2022 Instructions* Patient Instructions* Milana Quintana Ma - 11/20/2021 9:49 AM EDT SEQUENTIAL SCREENINGS [facility] offers sequential screenings for women who are [...] testing. It will require an appointment withour unit technician. This is not an ultrasound performed [...] the above symptoms, contact our office at [phone] and ask to speak with anurse. After hours, you can call doctors registry at [phone] OR call [facility] at [phone] ask to have the doctor pulmonary disease specialist paged. If you consider this an emergency, dial 5-3-0 or go to your nearest emergency department. NEED HELP? Are you dealing with a violent or abusive relationship? Are you a victim of rape or sexual assult? Call [facility] ([place]) 24 hour Crisis Hotline: 683.480.2091 or 337-822-4708. MANUAL Your Guide to a Healthy manual is now on-line. Visit [email or web address] to download your free copy documented in this encounterProtestant Hospital07-27-2022 Miscellaneous Notes* Quick Notes - Dante Waite MD - 11/07/2021 1:32 PM EDT RR- Good FM. No VB/LOF. BS log reviewed, excellent control and fastings within target now. Cont. ASA for preeclampsia prevention. Dante Waite MD documented in this encounterProtestant Hospital07-27-2022 Instructions* Patient Instructions* Milana Quintana Ma - 11/07/2021 1:23 PM EDT SEQUENTIAL SCREENINGS [facility] offers sequential screenings for women who are [...] testing. It will require an appointment withour unit technician. This is not an ultrasound performed [...] the above symptoms, contact our office at [phone] and ask to speak with anurse. After hours, you can call doctors [facility] at [phone] OR call [facility] at [phone] ask to have the doctor pulmonary disease specialist paged. If you consider this an emergency, dial 2-2-2 or go to your nearest emergency department. NEED HELP? Are you dealing with a violent or abusive relationship? Are you a victim of rape or sexual assult? Call [facility] ([place] 24 hour Crisis Hotline: 666.336.5343 or 629-466-3504. MANUAL Your Guide to a Healthy manual is now on-line. Visit [email or web address] to download your free copy documented in this encounterCleveland [id number] Miscellaneous Notes* Telephone Encounter - Zahira Torres APRN.CNM - 11/01/2021 4:11 PM EDT Rx signed. Zahira Torres APRN.CNM * Telephone Encounter - Adelaide Altamirano RN - 11/01/2021 3:59 PM EDT Refill request received via [employer] for patients blood sugar testing strips. Patient 29w6d. Please file pended order. Adelaide Altamirano RN documented in this encounterProtestant Hospital07-06-2022 Miscellaneous Notes* Telephone Encounter - Mare Larios [...] Thanks. Dante Waite MD documented in this encounterProtestant Hospital06-30-2022 Miscellaneous Notes* Telephone Encounter - Kaila Pruitt LPN - 10/11/2021 8:46 AM EDT FMLA paperwork completed and faxed to employer, scanned into EMR and filed in [employer] suite. Kaila Pruitt LPN * Telephone Encounter - Kaila Pruitt LPN - 10/09/2021 12:27 PM EDT [place] paperwork received and completed,placed on providers desk for signature. Kaila Pruitt LPN documented in this encounterProtestant Hospital06-28-2022 History of Past illness Narrative* Problem Noted Date Resolved Date Anemia during in second trimester 09/1301/17/2022 Supervision of other high risk pregnancies, firs t trimester 05/29/2021 01/17/2022 Overview: Declines cyber defense incident responder at delivery. History of gestational diabe kesha [...] delivery at 36 weeks 1 day. Discussed [place]. Patient is asked to watch the video prior to her appointment with Dr. Waite May 29. TKRN Gestational diabetes mellitus, class A1 11/22/1901/17/2022 Abnormal glucose in , antepartum 201905/29/2021 Overview: 11/16/19: 3hr gtt ordered. Kasey Perez MD Acne 04/19/2011 01/17/2022 documented as of this encounter (statuses as of 01/17/2022) [facility] History of Past illness Narrative* Problem Noted Date Resolved Date Anemia during in second trimester 09/1301/17/2022 Supervision of other high risk pregnancies, firs t trimester 05/29/2021 01/17/2022 Overview: Declines cyber defense incident responder at delivery. History of gestational diabe kesha [...] of this encounter (statuses as of 02/14/2022) [facility] of Past illness Narrative* Problem Noted Date Resolved Date Anemia during in second trimester 09/1301/17/2022 Supervision of other high risk pregnancies, firs t trimester 05/29/2021 01/17/2022 Overview: Declines cyber defense incident responder at delivery. History of gestational diabe kesha [...] delivery at 36 weeks 1 day. Discussed [place]. Patient is asked to watch the video prior to her appointment with Dr. Waite May 29. TKRN Gestational diabetes mellitus, class A1 11/22/1901/17/2022 Abnormal glucose in , antepartum 201905/29/2021 Overview: 11/16/19: 3hr gtt ordered. Kasey Perez MD Acne 04/19/2011 01/17/2022 documented as of this encounter (statuses as of 03/05/2022) [facility] History of Past illness Narrative* Problem Noted Date Resolved Date Anemia during in second trimester 09/1301/17/2022 Supervision of other high risk pregnancies, firs t trimester 05/29/2021 01/17/2022 Overview: Declines cyber defense incident responder at delivery. History of gestational diabe kesha [...] of this encounter (statuses as of 03/05/2022) [facility] History of Past illness Narrative* Problem Noted Date Resolved Date Anemia during in second trimester 09/1301/17/2022 Supervision of other high risk pregnancies, firs t trimester 05/29/2021 01/17/2022 Overview: Declines cyber defense incident responder at delivery. History of gestational diabe kesha [...] delivery at 36 weeks 1 day. Discussed [place]. Patient is asked to watch the video prior to her appointment with Dr. Waite May 29. TKRN Gestational diabetes mellitus, class A1 11/22/1901/17/2022 Abnormal glucose in , antepartum 201905/29/2021 Overview: 11/16/19: 3hr gtt ordered. Kasey Perez MD Acne 04/19/2011 01/17/2022 documented as of this encounter (statuses as of 03/06/2022) [facility] History of Past illness Narrative* Problem Noted Date Resolved Date Anemia during in second trimester 09/1301/17/2022 Supervision of other high risk pregnancies, firs t trimester 05/29/2021 01/17/2022 Overview: Declines cyber defense incident responder at delivery. History of gestational diabe kesha [...] delivery at 36 weeks 1 day. Discussed [place]. Patient is asked to watch the video prior to her appointment with Dr. Waite May 29. TKRN Gestational diabetes mellitus, class A1 11/22/1901/17/2022 Abnormal glucose in , antepartum 201905/29/2021 Overview: 11/16/19: 3hr gtt ordered. Kasey Perez MD Acne 04/19/2011 01/17/2022 documented as of this encounter (statuses as of 03/08/2022) [facility] History of Past illness Narrative* Problem Noted Date Resolved Date Anemia during in second trimester 09/1301/17/2022 Supervision of other high risk pregnancies, firs t trimester 05/29/2021 01/17/2022 Overview: Declines cyber defense incident responder at delivery. History of gestational diabe kesha [...] delivery at 36 weeks 1 day. Discussed [place]. Patient is asked to watch the video prior to her appointment with Dr. Waite May 29. TKRN Gestational diabetes mellitus, class A1 11/22/1901/17/2022 Abnormal glucose in , antepartum 201905/29/2021 Overview: 11/16/19: 3hr gtt ordered. Kasey Perez MD Acne 04/19/2011 01/17/2022 documented as of this encounter (statuses as of 07/04/2022) [facility] History of Past illness Narrative* Problem Noted Date Resolved Date Anemia during in second trimester 09/1301/17/2022 Supervision of other high risk pregnancies, firs t trimester 05/29/2021 01/17/2022 Overview: Declines cyber defense incident responder at delivery. History of gestational diabe kesha [...] delivery at 36 weeks 1 day. Discussed [place]. Patient is asked to watch the video prior to her appointment with Dr. Waite May 29. TKRN Gestational diabetes mellitus, class A1 11/22/1901/17/2022 Abnormal glucose in , antepartum 201905/29/2021 Overview: 11/16/19: 3hr gtt ordered. Kasey Perez MD Acne 04/19/2011 01/17/2022 documented as of this encounter (statuses as of 07/29/2022) [facility] of Past illness Narrative* Problem Noted Date Resolved Date Anemia during in second trimester 09/1301/17/2022 Supervision of other high risk pregnancies, firs t trimester 05/29/2021 01/17/2022 Overview: Declines cyber defense incident responder at delivery. History of gestational diabe kesha [...] delivery at 36 weeks 1 day. Discussed [place]. Patient is asked to watch the video prior to her appointment with Dr. Waite May 29. TKRN Gestational diabetes mellitus, class A1 11/22/1901/17/2022 Abnormal glucose in , antepartum 201905/29/2021 Overview: 11/16/19: 3hr gtt ordered. Kasey Perez MD Acne 04/19/2011 01/17/2022 documented as of this encounter (statuses as of 08/06/2022) [facility] History of Past illness Narrative* Problem Noted Date Resolved Date Anemia during in second trimester 09/1301/17/2022 Supervision of other high risk pregnancies, firs t trimester 05/29/2021 01/17/2022 Overview: Declines cyber defense incident responder at delivery. History of gestational diabe kesha [...] delivery at 36 weeks 1 day. Discussed [place]. Patient is asked to watch the video prior to her appointment with Dr. Wiate May 29. TKRN Gestational diabetes mellitus, class A1 11/22/1901/17/2022 Abnormal glucose in , antepartum 201905/29/2021 Overview: 11/16/19: 3hr gtt ordered. Kasey Perez MD Acne 04/19/2011 01/17/2022 documented as of this encounter (statuses as of 09/16/2022) [facility] History of Past illness Narrative* Problem Noted Date Diagnosed Date Resolved Date Anemia during in second trimester 10/09/2021 01/17/2022 Supervision of other high ri sk pregnancies, first trimester 05/29/2021 01/17/2022 Overview: Declines cyber defense incident responder at delivery. History of gestational diabe kesha in prior , currently 05/24/2021 10/17/2021 Overview: October 09, 2021 abnormal 1 hr, 3hr ordered. Datne Waite MD 05/24/2021 Patient has a history of gestational diabetes that was diet controlled with her last . Will plan on early screening with hemoglobin A1c. TKRN Hx of preeclampsia, prior pr egnancy, currently 05/24/2021 01/17/2022 Overview: May 29, 2021 ASA candidate History of delivery, currently 05/24/2021 01/17/2022 Overview: 05/24/2021 Patient has a history of delivery at 36 weeks 1 day. Discussed [place]. Patient is asked to watch the video prior to her appointment with Dr. Waite May 29. TKRN Gestational diabetes mellitus, class A1 11/22/2019 01/17/2022 Abnormal glucose in , antepartum 11/16/2019 05/29/2021 Overview: 11/16/19: 3hr gtt ordered. Kasey Perez MD Acne 04/19/2011 01/17/2022 documented as of this encounter (statuses as of 03/07/2023) [facility] History of Past illness Narrative* Problem Noted Date Diagnosed Date Resolved Date Anemia during in second trimester 10/09/2021 01/17/2022 Supervision of other high ri sk pregnancies, first trimester 05/29/2021 01/17/2022 Overview: Declines cyber defense incident responder at delivery. History of gestational diabe kesha [...] delivery at 36 weeks 1 day. Discussed [place]. Patient is asked to watch the video prior to her appointment with Dr. Waite May 29. TKRN Gestational diabetes mellitus, class A1 11/22/2019 01/17/2022 Abnormal glucose in , antepartum 11/16/2019 05/29/2021 Overview: 11/16/19: 3hr gtt ordered. Kasey Perez MD Acne 04/19/2011 01/17/2022 documented as of this encounter (statuses as of 03/11/2023) [facility] History of Past illness Narrative* Problem Noted Date Diagnosed Date Resolved Date Anemia during in second trimester 10/09/2021 01/17/2022 Supervision of other high ri sk pregnancies, first trimester 05/29/2021 01/17/2022 Overview: Declines cyber defense incident responder at delivery. History of gestational diabe kesha [...] delivery at 36 weeks 1 day. Discussed [place]. Patient is asked to watch the video prior to her appointment with Dr. Waite May 29. TKRN Gestational diabetes mellitus, class A1 11/22/2019 01/17/2022 Abnormal glucose in , antepartum 11/16/2019 05/29/2021 Overview: 11/16/19: 3hr gtt ordered. Kasey Perez MD Acne 04/19/2011 01/17/2022 documented as of this encounter (statuses as of 07/07/2023) [facility] Miscellaneous Notes* Telephone Encounter - Itzel Santiago [...] hr and start fe. [facility] Miscellaneous Notes* Quick Notes - Dante Waite MD - 10/09/2021 10:38 AM EDT RR_ No VB/LOF. Good FM. 28 week labs today. Plans OCPs for contraception. TDAP next visit. Planningcovid booster. Declines LARC at delivery. Plans . F/u in 2-3 weeks or prn. Dante Waite MD documented [facility] Instructions* Patient Instructions* Milana Quintana Ma - 10/09/2021 9:58 AM EDT SEQUENTIAL SCREENINGS [facility] offers sequential screenings for women who are [...] testing. It will require an appointment withour unit technician. This is not an ultrasound performed [...] the above symptoms, contact our office at [phone] and ask to speak with anurse. After hours, you can call doctors registry at [phone] OR call [facility] at [phone] ask to have the doctor pulmonary disease specialist paged. If you consider this an emergency, dial 9--4 or go to your nearest emergency department. NEED HELP? Are you dealing with a violent or abusive relationship? Are you a victim of rape or sexual assult? Call [facility] ([place]) 24 hour Crisis Hotline: 235.340.1707 or 444-675-0785. MANUAL Your Guide to a Healthy manual is now on-line. Visit [email or web address] to download your free copy documented [facility] encounter[facility] Miscellaneous Notes* Quick Notes - Dante Waite MD - 09/11/2021 10:02 AM EDT RR- No VB/LOF. Good FM. On ASA and progesterone. Some constipation but miralax every other day helps F/u in 4 weeks or prn. 28 week albs next visit. Dante Waite MD documented in [facility] encounterPro[facility] Instructions* Patient Instructions* Milana Quintana Ma - 09/11/2021 9:37 AM EDT SEQUENTIAL SCREENINGS [facility] offers sequential screenings for women who are [...] testing. It will require an appointment withour unit technician. This is not an ultrasound performed [...] the above symptoms, contact our office at [phone] and ask to speak with anurse. After hours, you can call doctors registry at [phone] OR call [facility] at [phone] ask to have the doctor pulmonary disease specialist paged. If you consider this an emergency, dial 9--1 or go to your nearest emergency department. NEED HELP? Are you dealing with a violent or abusive relationship? Are you a victim of rape or sexual assult? Call [facility] ([place]) 24 hour Crisis Hotline: 230.909.5620 or 057-697-9273. MANUAL Your Guide to a Healthy manual is now on-line. Visit [email or web address] to download your free copy documented in [facility] encounterPro[facility] Miscellaneous Notes* Telephone Encounter - Dante Waite MD - 08/17/2021 10:45 AM EDT filed. Thanks. Dante Waite MD * Telephone Encounter - Mare Larios RN - 08/17/2021 10:23 AM EDT 19w0d Patient seen in office today for Progesterone education and administration. Please file pending CAMorder. Thank you. Mare Larios RN documented in [facility] encounterPro[facility]05-[facility]22 History of Present illness Narrative* Mare Larios [...] All questions answered. Handouts given. Dose: 250mg/ml Litigation Specialist: Amneal Lot #: [id number] Expiration Date: 07/2022 Site: right upper quadrant gluteus Verified by GISSELLE Cao The date of the last injection was today The date due for the next injection is one week Provider Dante aWite MD was present in office at time of injection Mare Larios RN documented in this encounterPro[facility]05-[facility]22 Miscellaneous Notes* Quick Notes - Dante Waite [...] prn. Dante Waite MD documented in this encounterProtest[facility]05-02-[facility]22 Instructions* Patient Instructions* Mary Bonilla Ma - 08/13/2021 9:35 AM EDT SEQUENTIAL SCREENINGS [facility] offers sequential screenings for women who are [...] testing. It will require an appointment withour unit technician. This is not an ultrasound performed [...] the above symptoms, contact our office at [phone] and ask to speak with anurse. After hours, you can call doctors registry at [phone] OR call [facility] at [phone] ask to have the doctor pulmonary disease specialist paged. If you consider this an emergency, dial 9-1-7 or go to your nearest emergency department. NEED HELP? Are you dealing with a violent or abusive relationship? Are you a victim of rape or sexual assult? Call [facility] ([place]) 24 hour Crisis Hotline: 710.198.2392 or 860-733-9662. MANUAL Your Guide to a Healthy manual is now on-line. Visit [email or web address] to download your free copy documented in this encounterProtest[facility] Hospital04-26-2022 Miscellaneous Notes* Telephone Encounter - Adelaide Altamirano RN - 08/07/2021 8:41 AM EDT Patient still has not received her shipment. Can you check into this? Adelaide Altamirano RN documented in this encounterProtest[facility] Hospital04-08-2022 Miscellaneous Notes* Quick Notes - Dante Waite MD - 07/20/2021 10:05 AM EDT RR- No VB/LOF. No flutters yet. Anatomy uS scheduled. On ASA and taking PNV. Dante Waite MD documented in this encounterProtest[facility] Hospital04-08-2022 Instructions* Patient Instructions* Milana Quintana Ma - 07/20/2021 9:38 AM EDT SEQUENTIAL SCREENINGS [facility] offers sequential screenings for women who are [...] testing. It will require an appointment withour unit technician. This is not an ultrasound performed [...] the above symptoms, contact our office at [phone] and ask to speak with anurse. After hours, you can call doctors registry at [phone] OR call [facility] at [phone] ask to have the doctor pulmonary disease specialist paged. If you consider this an emergency, dial 9-1- or go to your nearest emergency department. NEED HELP? Are you dealing with a violent or abusive relationship? Are you a victim of rape or sexual assult? Call [facility] ([place] 24 hour Crisis Hotline: 172.633.5574 or 242-278-7646. MANUAL Your Guide to a Healthy manual is now on-line. Visit [email or web address] to download your free copy documented in this encounterProtest[facility] Hospital04-05-2022 Miscellaneous Notes* Telephone Encounter - Iastu Zamora RN - 07/17/2021 9:40 AM EDT Form faxed * Telephone Encounter - Isatu Zamora RN - 07/17/2021 8:05 AM EDT Received [employer] form for Linda for Dr Narinder guerra. Please fax to number on front of form after signature is obtained documented in this encounterProtestant Hospital02-10-2022 History of Past illness Narrative* Problem Noted [...] of this encounter (statuses as of 10/17/2021) [facility] Narrative* Problem Noted [...] of this encounter (statuses as of 11/01/2021) [facility] Narrative* Problem Noted [...] of this encounter (statuses as of 11/07/2021) [facility] Narrative* Problem Noted [...] of this encounter (statuses as of 11/20/2021) [facility] Narrative* Problem Noted [...] of this encounter (statuses as of 12/04/2021) [facility] illness Narrative* Problem Noted [...] of this encounter (statuses as of 12/04/2021) [facility] illness Narrative* Problem Noted [...] of this encounter (statuses as of 12/13/2021) [facility] illness Narrative* Problem Noted [...] of this encounter (statuses as of 12/19/2021) [facility] illness Narrative* Problem Noted [...] of this encounter (statuses as of 12/25/2021) [facility] Narrative* Problem Noted [...] of this encounter (statuses as of 01/02/2022) [facility] Narrative* Problem Noted [...] of this encounter (statuses as of 01/04/2022) [facility] of [facility] illness Narrative* Problem Noted Date Resolved Date Gestational diabetes mellitus, class A1 11/22/19 20 05/29/2021 Abnormal glucose in , antepartum 201905/29/2021 Overview: 11/16/19: 3hr gtt ordered. Kasey Perez MD documented as of this encounter (statuses as of 07/17/2021) [facility] History of Past illness Narrative* Problem Noted Date Resolved Date Gestational diabetes mellitus, class A1 11/22/1905/29/2021 Abnormal glucose in , antepartum 201905/29/2021 Overview: 11/16/19: 3hr gtt ordered. Kasey Perez MD documented as of this encounter (statuses as of 07/20/2021) [facility] of [facility] illness Narrative* Problem Noted Date Resolved Date Gestational diabetes mellitus, class A1 11/22/19 20 05/29/2021 Abnormal glucose in , antepartum 201905/29/2021 Overview: 11/16/19: 3hr gtt ordered. Kasey Perez MD documented as of this encounter (statuses as of 08/07/2021) [address] History of Past illness Narrative* Problem Noted Date Resolved Date Gestational diabetes mellitus, class A1 11/22/1905/29/2021 Abnormal glucose in , antepartum 201905/29/2021 Overview: 11/16/19: 3hr gtt ordered. Kasey Perez MD documented as of this encounter (statuses as of 08/13/2021) [address] History of Past illness Narrative* Problem Noted Date Resolved Date Gestational diabetes mellitus, class A1 11/22/1905/29/2021 Abnormal glucose in , antepartum 201905/29/2021 Overview: 11/16/19: 3hr gtt ordered. Kasey Perez MD documented as of this encounter (statuses as of 08/13/2021) [place] [address]10-2020 History of Past illness Narrative* Problem Noted Date Resolved Date Gestational diabetes mellitus, class A1 11/22/1905/29/2021 Abnormal glucose in , antepartum 201905/29/2021 Overview: 11/16/19: 3hr gtt ordered. Kasey Perez MD documented as of this encounter (statuses as of 08/15/2021) [place] [address] History of Past illness Narrative* Problem Noted Date Resolved Date Gestational diabetes mellitus, class A1 11/22/1905/29/2021 Abnormal glucose in , antepartum 201905/29/2021 Overview: 11/16/19: 3hr gtt ordered. Kasey Perez MD documented as of this encounter (statuses as of 08/17/2021) [address] History of Past illness Narrative* Problem Noted Date Resolved Date Gestational diabetes mellitus, class A1 11/22/1905/29/2021 Abnormal glucose in , antepartum 201905/29/2021 Overview: 11/16/19: 3hr gtt ordered. Kasey Perez MD documented as of this encounter (statuses as of 09/11/2021) [address] History of Past illness Narrative* Problem Noted Date Resolved Date Gestational diabetes mellitus, class A1 11/22/1905/29/2021 Abnormal glucose in , antepartum 201905/29/2021 Overview: 11/16/19: 3hr gtt ordered. Kasey Perez MD documented as of this encounter (statuses as of 09/17/2021) [address] History of Past illness Narrative* Problem Noted Date Resolved Date Gestational diabetes mellitus, class A1 11/22/1905/29/2021 Abnormal glucose in , antepartum 201905/29/2021 Overview: 11/16/19: 3hr gtt ordered. Kasey Perez MD documented as of this encounter (statuses as of 10/09/2021) [address] History of Past illness Narrative* Problem Noted Date Resolved Date Gestational diabetes mellitus, class A1 11/22/1905/29/2021 Abnormal glucose in , antepartum 201905/29/2021 Overview: 11/16/19: 3hr gtt ordered. Kasey Perez MD documented as of this encounter (statuses as of 10/09/2021) [address] History of Past illness Narrative* Problem Noted Date Resolved Date Gestational diabetes mellitus, class A1 11/22/1905/29/2021 Abnormal glucose in , antepartum 201905/29/2021 Overview: 8/4/20: 3hr gtt ordered. Kasey Perez MD documented as of this encounter (statuses as of 10/11/2021) [facility] Narrative* Problem Noted Date Resolved Date Gestational diabetes mellitus, class A1 11/22/19 20 05/29/2021 Abnormal glucose in , antepartum 201905/29/2021 Overview: 11/16/19: 3hr gtt ordered. Kasey Perez MD documented as of this encounter (statuses as of 10/16/2021) [facility] Zelaya [facility] September 16, 2022 10:47am Note Date/Time September 16, 2022 10:07 am [facility] Medical Records Department [address] [place] [address] Emergency Department Summary 09/16/22 MR#: [id number] Acct: [id number] Name: HERB MORAN Rep #:[id number] : 1990 32 From: Leonel Zelaya MD [...] chest pain. It is sharp and stabbing [facility] Medical History (Updated 09/16/22 @ 10:46 by [...] about a pulmonary embolism, she traveled to [place] and has pleuritic chest pain. This is [...] 81.2 H Lymph % (Auto) 13.7 L [place] % (Auto) 4.0 Eos % (Auto) 0.5 [...] rhythm with a rate of 84. Normal NE and QTc intervals. No ischemic changes. Normal [...] your Primary Care Provider. Call Doctors Registry ([phone]) or report to the closest Emergency Room. Call 911 if necessary. 09/16/22 1047 <Electronically signed by Leonel Zelaya MD> Cosigner Signature (if applicable): CC: Dr. Kathy Vyas MD ~ Signed [facility] Work Phone: Evaluation note* Diagnosis 15 weeks gestation of - Primary state, incidental Encounter for supervision of other normal in second trimester [facility] Diagnosis Encounter for anatomic survey- Primary 18 weeks gestation of state, incidental [facility] Encounter for supervision of other normal in second trimester- Primary 18 weeks gestation of state, incidental [facility] History of delivery, currently - Primary with history of pre-term labor [facility]* Diagnosis 22 weeks gestation of - Primary state, incidental History of delivery, currently with history of pre-term labor Encounter for supervision of other normal in second trimester [facility] Diagnosis 26 weeks gestation of - Primary state, incidental History of delivery, currently with history of pre-term labor Encounter for supervision of other normal in second trimester [facility] Diagnosis Abnormal glucose in , antepartum- Primary Abnormal maternal glucose tolerance, antepartum [facility] Diagnosis Abnormal maternal glucose tolerance, antepartum- Primary [facility] Diagnosis Abnormal maternal glucose tolerance, antepartum [facility]* Diagnosis 30 weeks gestation of - Primary state, incidental Diet controlled gestational diabetes mellitus (GDM) in third trimester [facility]* Diagnosis Diet controlled gestational diabetes mellitus (GDM) in third trimester- Primary 32 weeks gestation of state, incidental Supervision of other high risk pregnancies, third trimester [facility]* Diagnosis Gestational diabetes mellitus, class A1- Primary Abnormal maternal glucose tolerance, complicating , childbirth, or the puerperium, unspecified as to episode of care 34 weeks gestation of state, incidental [facility]* Diagnosis Diet controlled gestational diabetes mellitus (GDM) in third trimester- Primary 34 weeks gestation of state, incidental Need for Tdap vaccination Need for prophylactic vaccination with combined vkljjjifyx-yffdqnn-kjdbgfsmw (DTP) vaccine documented [facility] noteNo assessment information availableWFirelands Regional Medical Center Work Phone: Evaluation note* Diagnosis 35 weeks gestation of - Primary state, incidental Diet controlled gestational diabetes mellitus (GDM) in third trimester Supervision of other high risk pregnancies, first trimester [facility] note* Diagnosis 36 weeks gestation of - Primary state, incidental Diet controlled gestational diabetes mellitus (GDM) in third trimester Supervision of other high risk pregnancies, first trimester [facility] Diagnosis Gestational diabetes mellitus, class A1- Primary Abnormal maternal glucose tolerance, complicating , childbirth, or the puerperium, unspecified as to episode of care Anemia during in second trimester Hx of preeclampsia, prior , currently with other poor obstetric history 37 weeks gestation of state, incidental [facility] Diagnosis 38 weeks gestation of - Primary state, incidental Gestational diabetes mellitus, class A1 Abnormal maternal glucose tolerance, complicating , childbirth, or the puerperium, unspecified as to episode of care Hx of preeclampsia, prior , currently with other poor obstetric history [facility] Diagnosis Onset Date Resolution Status 34 weeks gestation of acute Fall at home acute 39 weeks gestation of acute GDM, class A1 acute Multiparity acute (spontaneous vaginal delivery) acute [facility] Work Phone: Evaluation note* Diagnosis Routine follow-up- Primary [facility]* Diagnosis care and examination- Primary Routine follow-up [facility] Diagnosis Vaginal discharge- Primary Leukorrhea, not specified as infective Vaginal odor Unspecified symptom associated with female genital organs [facility] Diagnosis Acute cough- Primary Discomfort in chest Other chest pain LEDBETTER (dyspnea on exertion) Other dyspnea and respiratory abnormality [facility]* Diagnosis Acute vaginitis- Primary Vaginitis and vulvovaginitis, unspecified [facility]* Diagnosis Dysuria- Primary [facility]* Diagnosis Encounter for gynecological examination (general) (routine) without abnormal findings- Primary [facility]* Diagnosis Acute cough LEDBETTER (dyspnea on exertion) Other dyspnea and respiratory abnormality [facility]* Diagnosis with uncertain dates, antepartum- Primary state, incidental Encounter for supervision of normal in multigravida 7 weeks gestation of state, incidental Hx of preeclampsia, prior , currently with other poor obstetric history [facility]* Diagnosis Encounter for supervision of normal in multigravida- Primary Hx of preeclampsia, prior , currently with other poor obstetric history 9 weeks gestation of state, incidental [facility]* Diagnosis size consistent with dates during in first trimester- Primary 9 weeks gestation of state, incidental [facility]* Diagnosis Encounter for supervision of normal in multigravida- Primary Hx of preeclampsia, prior , currently with other poor obstetric history 11 weeks gestation of state, incidental [facility]* Diagnosis Hx of preeclampsia, prior , currently - Primary with other poor obstetric history Encounter for supervision of normal in multigravida 13 weeks gestation of state, incidental [facility]* Diagnosis Encounter for screening for malformation using ultrasound- Primary 13 weeks gestation of state, incidental documented in this encounter [facility] note* Diagnosis Encounter for supervision of normal [...] normal in multigravida documented in this encounter [facility] note* Diagnosis Encounter for supervision of normal in multigravida (HCC)- Primary Hx of preeclampsia, prior , currently ([facility]) with other poor obstetric history 16 weeks gestation of ([facility]) state, incidental Supervision of high risk in second trimester ([facility])- Primary Unspecified high-risk 20 weeks gestation of ([facility]) state, incidental Hx of preeclampsia, prior , currently (HCC) with other poor obstetric history Hx of gestational diabetes in prior , currently ([facility]) with other poor obstetric history documented in this encounter [facility] note* Diagnosis Encounter for supervision of normal in multigravida (HCC)- Primary Hx of preeclampsia, prior , currently (HCC) with other poor obstetric history 16 weeks gestation of ([facility]) state, incidental Supervision of high risk in second trimester (HCC)- Primary Unspecified high-risk 24 weeks gestation of ([facility]) state, incidental Screening for diabetes mellitus * Assessment & Plan Note - Dante Waite MD - 08/18/2024 8:35 AM EDT Associated Problem(s): Supervision of high risk in second trimester (HCC) documented in this encounter [facility] note* Diagnosis Encounter for supervision of normal in multigravida ([facility])- Primary Hx of preeclampsia, prior , currently ([facility]) with other poor obstetric history 16 weeks gestation of ([facility]) state, incidental Supervision of high risk in second trimester ([facility])- Primary Unspecified high-risk 24 weeks gestation of ([facility]) state, incidental Screening for diabetes mellitus Supervision of high risk in third trimester ([facility])- Primary Unspecified high-risk 28 weeks gestation of ([facility]) state, incidental Need for vaccination Need for prophylactic vaccination and inoculation against unspecified single disease documented in this encounter [facility] note* Diagnosis Encounter for supervision of normal in multigravida ([facility])- Primary Hx of preeclampsia, prior , currently ([facility]) with other poor obstetric history 16 weeks gestation of ([facility]) state, incidental Supervision of high risk in second trimester ([facility])- Primary Unspecified high-risk 24 weeks gestation of ([facility]) state, incidental Screening for diabetes mellitus Supervision of high risk in third trimester ([facility])- Primary Unspecified high-risk 30 weeks gestation of ([facility]) state, incidental Hx of preeclampsia, prior , currently ([facility]) with other poor obstetric history Hx of gestational diabetes in prior , currently ([facility]) with other poor obstetric history Anemia during in third trimester ([facility]) Urinary frequency Fever, unspecified fever cause documented in this encounter [facility] note* Diagnosis Encounter for supervision of normal in multigravida ([facility])- Primary Hx of preeclampsia, prior , currently ([facility]) with other poor obstetric history 16 weeks gestation of ([facility]) state, incidental Supervision of high risk in second trimester ([facility])- Primary Unspecified high-risk 24 weeks gestation of ([facility]) state, incidental Screening for diabetes mellitus Supervision of high risk in third trimester ([facility])- Primary Unspecified high-risk Hx of preeclampsia, prior , currently ([facility]) with other poor obstetric history Anemia during in third trimester ([facility]) 32 weeks gestation of ([facility]) state, incidental * Assessment & Plan Note - Dante Waite MD - 10/13/2024 8:45 AM EDT Associated Problem(s): Hx of preeclampsia, prior , currently ([facility]) bp stable Orders: COMPLETE BLOOD COUNT; Future * Assessment & Plan Note - Dante Waite MD - 10/13/2024 8:45 AM EDT Associated Problem(s): Anemia during in third trimester ([facility]) Orders: COMPLETE BLOOD COUNT; Future [facility]* Diagnosis Encounter for supervision of normal in multigravida ([facility])- Primary Hx of preeclampsia, prior , currently ([facility]) with other poor obstetric history 16 weeks gestation of ([facility]) state, incidental Supervision of high risk in second trimester ([facility])- Primary Unspecified high-risk 24 weeks gestation of ([facility]) state, incidental Screening for diabetes mellitus Supervision of high risk in third trimester ([facility])- Primary Unspecified high-risk Hx of preeclampsia, prior , currently ([facility]) with other poor obstetric history Anemia during in third trimester ([facility]) 32 weeks gestation of ([facility]) state, incidental Supervision of high risk in third trimester ([facility])- Primary Unspecified high-risk Hx of preeclampsia, prior , currently ([facility]) with other poor obstetric history Anemia during in third trimester ([facility]) 34 weeks gestation of ([facility]) state, incidental [facility]* Diagnosis Encounter for supervision of normal in multigravida ([facility])- Primary Hx of preeclampsia, prior , currently ([facility]) with other poor obstetric history 16 weeks gestation of ([facility]) state, incidental Supervision of high risk in second trimester ([facility])- Primary Unspecified high-risk 24 weeks gestation of ([facility]) state, incidental Screening for diabetes mellitus Supervision of high risk in third trimester ([facility])- Primary Unspecified high-risk Hx of preeclampsia, prior , currently ([facility]) with other poor obstetric history Anemia during in third trimester ([facility]) 32 weeks gestation of ([facility]) state, incidental Supervision of high risk in third trimester ([facility])- Primary Unspecified high-risk Hx of preeclampsia, prior , currently ([facility]) with other poor obstetric history 36 weeks gestation of ([facility]) state, incidental Breech presentation with problem, single or unspecified fetus ([facility]) * Assessment & Plan Note - Dante Waite MD - 11/10/2024 10:57 AM EDT Associated Problem(s): Hx of preeclampsia, prior , currently ([facility]) bp stable, call for signs/symptoms of preeclampsia Orders: URINE OB DIP B/O ROUTINE, GROUP B STREPTOCOCCUS BY PCR * Assessment & Plan Note - Dante Waite MD - 11/10/2024 10:57 AM EDT Associated Problem(s): Breech presentation with problem ([facility]) r/b/a to ECV reviewed, desires to attempt if still breech next week. [facility] Diagnosis Encounter for supervision of normal in multigravida ([facility])- Primary Hx of preeclampsia, prior , currently ([facility]) with other poor obstetric history 16 weeks gestation of ([facility]) state, incidental Supervision of high risk in second trimester ([facility])- Primary Unspecified high-risk 24 weeks gestation of ([facility]) state, incidental Screening for diabetes mellitus Supervision of high risk in third trimester ([facility])- Primary Unspecified high-risk Hx of preeclampsia, prior , currently ([facility]) with other poor obstetric history Anemia during in third trimester ([facility]) 32 weeks gestation of ([facility]) state, incidental Supervision of high risk in third trimester ([facility])- Primary Unspecified high-risk Hx of preeclampsia, prior , currently ([facility]) with other poor obstetric history 36 weeks gestation of ([facility]) state, incidental Breech presentation with problem, single or unspecified fetus ([facility]) Supervision of high risk in third trimester ([facility])- Primary Unspecified high-risk Hx of preeclampsia, prior , currently ([facility]) with other poor obstetric history Breech presentation with problem, single or unspecified fetus ([facility]) 36 weeks gestation of ([facility]) state, incidental Anemia during in third trimester ([facility]) documented in this encounter [facility] note* Diagnosis Encounter for supervision of normal in multigravida ([facility])- Primary Hx of preeclampsia, prior , currently ([facility]) with other poor obstetric history 16 weeks gestation of ([facility]) state, incidental Supervision of high risk in second trimester ([facility])- Primary Unspecified high-risk 24 weeks gestation of ([facility]) state, incidental Screening for diabetes mellitus Supervision of high risk in third trimester ([facility])- Primary Unspecified high-risk Hx of preeclampsia, prior , currently ([facility]) with other poor obstetric history Anemia during in third trimester ([facility]) 32 weeks gestation of ([facility]) state, incidental Supervision of high risk in third trimester ([facility])- Primary Unspecified high-risk Hx of preeclampsia, prior , currently ([facility]) with other poor obstetric history 36 weeks gestation of ([facility]) state, incidental Breech presentation with problem, single or unspecified fetus ([facility]) 37 weeks gestation of ([facility])- Primary state, incidental Supervision of high risk in third trimester ([facility]) Unspecified high-risk documented in this encounter [facility] note* Diagnosis Encounter for supervision of normal in multigravida ([facility])- Primary Hx of preeclampsia, prior , currently ([facility]) with other poor obstetric history 16 weeks gestation of ([facility]) state, incidental Supervision of high risk in second trimester ([facility])- Primary Unspecified high-risk 24 weeks gestation of ([facility]) state, incidental Screening for diabetes mellitus Supervision of high risk in third trimester ([facility])- Primary Unspecified high-risk Hx of preeclampsia, prior , currently ([facility]) with other poor obstetric history Anemia during in third trimester ([facility]) 32 weeks gestation of ([facility]) state, incidental Supervision of high risk in third trimester (HCC)- Primary Unspecified high-risk Hx of preeclampsia, prior , currently (H[facility]) with other poor obstetric history 36 weeks gestation of ([facility]) state, incidental Breech presentation with problem, single or unspecified fetus (HCC) Supervision of high risk in third trimester (HCC)- Primary Unspecified high-risk Hx of preeclampsia, prior , currently (HCC) with other poor obstetric history Breech presentation with problem, single or unspecified fetus (HCC) Anemia during in third trimester (HCC) 38 weeks gestation of ([facility]) state, incidental * Assessment & Plan Note - Kasey Martines MD - 11/24/2024 10:07 AM EDTAssociated Problem(s): Hx of preeclampsia, prior , currently ([facility]) Orders: URINE OB DIP B/O * Assessment & Plan Note - Kasey Martines MD - 11/24/2024 10:07 AM EDTAssociated Problem(s): Breech presentation with problem ([facility]) Planned cs Orders: URINE OB DIP B/O * Assessment & Plan Note - Kasey Martines MD - 11/24/2024 10:07 AM EDTAssociated Problem(s): Anemia during in third trimester ([facility]) Continue PO iron Orders: URINE OB DIP B/O [facility] Additional Instructions Keep next follow up appointment.[facility] Work Phone: Progress note Author Alessandra Clemens [facility] Note Date/Time November 15, 2024 6:[address] [facility] Medical Records Department [address] [place] [address] Progress Note - OBGYN 11/15/241851 MR#: [id number] Acct: [id number] Name: HERB MORAN Rep #:[id number] : 1990 34 From: Alessandra Clemens DO PCP: Dr. Kathy Vyas MD Status:REG [facility] Location: [place] [address] Subjective Subjective Patient has been having contractions [...] Cosigner Signature (if applicable): CC: ~ Signed [facility] Work Phone: [facility] [place] for referral (narrative)* Diagnostic Procedure Only (Routine) - Authorized Specialty Diagnoses / Procedures Referred By Contac t Referred To Contact [facility] Diagnoses Diet controlled gestational diabetes mellitus (GDM) in third trimester 32 weeks gestation of Supervision of other high risk pregnancies, third trimester Procedures OBSTETRIC ULTRASOUND WHI US PREG UTERUS AFTER 1ST TRIMEST GESTATION Dante Waite MD [address] [place] [address] [address] Referral ID Status Reason Start Date Expiration Date Visits Requested Visits Authorized [id number] Authorized Auto-Generat ed Referral 11/20/2021 11/20/2022 1 1 [facility] Diagnostic Procedure Only (Routine) - Authorized Specialty Diagnoses / Procedures Referred By Contac t Referred To Contact [facility] Diagnoses 7 weeks gestation of Procedures OBSTETRIC ULTRASOUND WHI US PREG UTERUS AFTER 1ST TRIMEST GESTATION Mai Blanton APRN.CNP [address] [place] [address] [address] Referral ID Status Reason Start Date Expiration Date Visits Requested Visits Authorized [id number] Authorized Auto-Generat ed Referral 04/19/2024 04/19/2025 1 1 [facility] for referral (narrative)* Diagnostic Procedure Only (Routine) - Authorized Specialty Diagnoses / Procedures Referred By Contac t Referred To Contact [facility] Diagnoses Encounter for supervision of normal in multigravida Hx of preeclampsia, prior , currently 9 weeks gestation of Procedures OBSTETRIC ULTRASOUND WHI US PREG UTERUS AFTER 1ST TRIMEST GESTATION Dante Waite MD [address] [place] [address] [facility] [employer] [place] [address] Referral ID Status Reason Start Date Expiration Date Visits Requested Visits Authorized [id number] Authorized Auto-Generat ed Referral 05/04/2024 05/04/2025 1 1 * Diagnostic Procedure Only (Routine) - Authorized Specialty Diagnoses / Procedures Referred By Ana t Referred To Contact [facility] Diagnoses Encounter for supervision of normal in multigravida Hx of preeclampsia, prior , currently 9 weeks gestation of Procedures OBSTETRIC ULTRASOUND WHI US PREG UTERUS AFTER 1ST TRIMEST GESTATION Dante Waite MD [address] [place] [address] [address] [address] [place] [address] Referral ID Status Reason Start Date Expiration Date Visits Requested Visits Authorized [id number] Authorized Auto-Generat ed Referral 05/04/2024 05/04/2025 1 1 [facility]No reason for referral information availableWFirelands [facility] Work Phone: Reason for visit Narrative* Diagnostic Procedure Only (Routine) - Closed Specialty Diagnoses / Procedures Referred By Ana dennis Referred To Contact [facility] Diagnoses 7 weeks gestation of Procedures OBSTETRIC ULTRASOUND WHI US PREG UTERUS AFTER 1ST TRIMEST GESTATION Mai Blanton APRN.DIMPLING MACHINE OPERATOR [address] [place] [address] [address] Referral ID Status Reason Start Date Expiration Date V isits Requested Visits Authorized [id number] Closed Auto-Generate d Referral 04/19/2024 04/19/2025 1 1 [facility] Medications Administered Section Inactive Administered Medications - [...] No January 10, 2020 7:37am Power of Inspector [employer] No December 7:37am Advance Directive Response Recorded Date/ Time Name of Medical Power of Inspector [employer] Alexis Dean January 04, 2022 7:26am Living Will Yes January 04, 2022 7:26am Power of Inspector [employer] Yes December 7:26am Advance Directive Response Recorded Date/ Time Living Will Yes September 16, 2022 9 :55am Power of Inspector [employer] Yes September 16, 2022 9:55am Name of Medical Power of Inspector [employer] ALEXIS MORAN AND ТАТЬЯНА WILLIS September 16, [...] or prosecute any alcohol or drug abuse patient.[facility] the event this information is protected by the Federal Confidentiality of Alcohol and Drug Abuse Patient Records regulations: The Federal rules restrict any use of the information to criminally investigate or prosecute any alcohol or drug abuse patient.[facility] Hospital[facility] the event this information is protected by the Federal Confidentiality of Alcohol and Drug Abuse Patient Records regulations: The Federal rules restrict any use of the information to criminally investigate or prosecute any alcohol or drug abuse patient.[facility] the event this information is protected by the Federal Confidentiality of Alcohol and Drug Abuse Patient Records regulations: The Federal rules restrict any use of the information to criminally investigate or prosecute any alcohol or drug abuse patient.[facility] HospitalIn the event this information is protected by [...] or prosecute any alcohol or drug abuse patient.[facility] Hospital[facility] the event this information is protected by the Federal Confidentiality of Alcohol and Drug Abuse Patient Records regulations: The Federal rules restrict any use of the information to criminally investigate or prosecute any alcohol or drug abuse patient.[facility] Hospital[facility] the event this information is protected by the Federal Confidentiality of Alcohol and Drug Abuse Patient Records regulations: The Federal rules restrict any use of the information to criminally investigate or prosecute any alcohol or drug abuse patient.[facility] HospitalIn the event this information is protected by the Federal Confidentiality of Alcohol and Drug Abuse Patient Records regulations: The Federal rules restrict any use of the information to criminally investigate or prosecute any alcohol or drug abuse patient.[facility] Hospital[facility] the event this information is protected by the Federal Confidentiality of Alcohol and Drug Abuse Patient Records regulations: The Federal rules restrict any use of the information to criminally investigate or prosecute any alcohol or drug abuse patient.[facility] HospitalIn the event this information is protected by the Federal Confidentiality of Alcohol and Drug Abuse Patient Records regulations: The Federal rules restrict any use of the information to criminally investigate or prosecute any alcohol or drug abuse patient.[facility] HospitalIn the event this information is protected by the Federal Confidentiality of Alcohol and Drug Abuse Patient Records regulations: The Federal rules restrict any use of the information to criminally investigate or prosecute any alcohol or drug abuse patient.[facility] Hospital[facility] the event this information is protected by the Federal Confidentiality of Alcohol and Drug Abuse Patient Records regulations: The Federal rules restrict any use of the information to criminally investigate or prosecute any alcohol or drug abuse patient.[facility] HospitalIn the event this information is protected by the Federal Confidentiality of Alcohol and Drug Abuse Patient Records regulations: The Federal rules restrict any use of the information to criminally investigate or prosecute any alcohol or drug abuse patient.[facility] HospitalIn the event this information is protected by the Federal Confidentiality of Alcohol and Drug Abuse Patient Records regulations: The Federal rules restrict any use of the information to criminally investigate or prosecute any alcohol or drug abuse patient.[facility] HospitalIn the event this information is protected by the Federal Confidentiality of Alcohol and Drug Abuse Patient Records regulations: The Federal rules restrict any use of the information to criminally investigate or prosecute any alcohol or drug abuse patient.[facility] HospitalIn the event this information is protected by the Federal Confidentiality of Alcohol and Drug Abuse Patient Records regulations: The Federal rules restrict any use of the information to criminally investigate or prosecute any alcohol or drug abuse patient.[facility] HospitalIn the event this information is protected by the Federal Confidentiality of Alcohol and Drug Abuse Patient Records regulations: The Federal rules restrict any use of the information to criminally investigate or prosecute any alcohol or drug abuse patient.[facility] HospitalIn the event this information is protected by the Federal Confidentiality of Alcohol and Drug Abuse Patient Records regulations: The Federal rules restrict any use of the information to criminally investigate or prosecute any alcohol or drug abuse patient.[facility] HospitalIn the event this information is protected by the Federal Confidentiality of Alcohol and Drug Abuse Patient Records regulations: The Federal rules restrict any use of the information to criminally investigate or prosecute any alcohol or drug abuse patient.[facility] HospitalIn the event this information is protected by the Federal Confidentiality of Alcohol and Drug Abuse Patient Records regulations: The Federal rules restrict any use of the information to criminally investigate or prosecute any alcohol or drug abuse patient.[facility] HospitalIn the event this information is protected by the Federal Confidentiality of Alcohol and Drug Abuse Patient Records regulations: The Federal rules restrict any use of the information to criminally investigate or prosecute any alcohol or drug abuse patient.[facility] HospitalIn the event this information is protected by the Federal Confidentiality of Alcohol and Drug Abuse Patient Records regulations: The Federal rules restrict any use of the information to criminally investigate or prosecute any alcohol or drug abuse patient.[facility] HospitalIn the event this information is protected by the Federal Confidentiality of Alcohol and Drug Abuse Patient Records regulations: The Federal rules restrict any use of the information to criminally investigate or prosecute any alcohol or drug abuse patient.[facility] HospitalIn the event this information is protected by the Federal Confidentiality of Alcohol and Drug Abuse Patient Records regulations: The Federal rules restrict any use of the information to criminally investigate or prosecute any alcohol or drug abuse patient.[facility] HospitalIn the event this information is protected by the Federal Confidentiality of Alcohol and Drug Abuse Patient Records regulations: The Federal rules restrict any use of the information to criminally investigate or prosecute any alcohol or drug abuse patient.[facility] HospitalIn the event this information is protected by the Federal Confidentiality of Alcohol and Drug Abuse Patient Records regulations: The Federal rules restrict any use of the information to criminally investigate or prosecute any alcohol or drug abuse patient.[facility] HospitalIn the event this information is protected by the Federal Confidentiality of Alcohol and Drug Abuse Patient Records regulations: The Federal rules restrict any use of the information to criminally investigate or prosecute any alcohol or drug abuse patient.[facility] HospitalIn the event this information is protected by the Federal Confidentiality of Alcohol and Drug Abuse Patient Records regulations: The Federal rules restrict any use of the information to criminally investigate or prosecute any alcohol or drug abuse patient.[facility] HospitalIn the event this information is protected by the Federal Confidentiality of Alcohol and Drug Abuse Patient Records regulations: The Federal rules restrict any use of the information to criminally investigate or prosecute any alcohol or drug abuse patient.[facility] HospitalIn the event this information is protected by the Federal Confidentiality of Alcohol and Drug Abuse Patient Records regulations: The Federal rules restrict any use of the information to criminally investigate or prosecute any alcohol or drug abuse patient.[facility] HospitalIn the event this information is protected by the Federal Confidentiality of Alcohol and Drug Abuse Patient Records regulations: The Federal rules restrict any use of the information to criminally investigate or prosecute any alcohol or drug abuse patient.[facility] HospitalIn the event this information is protected by the Federal Confidentiality of Alcohol and Drug Abuse Patient Records regulations: The Federal rules restrict any use of the information to criminally investigate or prosecute any alcohol or drug abuse patient.[facility] HospitalIn the event this information is protected by the Federal Confidentiality of Alcohol and Drug Abuse Patient Records regulations: The Federal rules restrict any use of the information to criminally investigate or prosecute any alcohol or drug abuse patient.[facility] HospitalIn the event this information is protected by the Federal Confidentiality of Alcohol and Drug Abuse Patient Records regulations: The Federal rules restrict any use of the information to criminally investigate or prosecute any alcohol or drug abuse patient.[facility] HospitalIn the event this information is protected by the Federal Confidentiality of Alcohol and Drug Abuse Patient Records regulations: The Federal rules restrict any use of the information to criminally investigate or prosecute any alcohol or drug abuse patient.[facility] HospitalIn the event this information is protected by the Federal Confidentiality of Alcohol and Drug Abuse Patient Records regulations: The Federal rules restrict any use of the information to criminally investigate or prosecute any alcohol or drug abuse patient.[facility] HospitalIn the event this information is protected by the Federal Confidentiality of Alcohol and Drug Abuse Patient Records regulations: The Federal rules restrict any use of the information to criminally investigate or prosecute any alcohol or drug abuse patient.[facility] HospitalIn the event this information is protected by the Federal Confidentiality of Alcohol and Drug Abuse Patient Records regulations: The Federal rules restrict any use of the information to criminally investigate or prosecute any alcohol or drug abuse patient.[facility] HospitalIn the event this information is protected by the Federal Confidentiality of Alcohol and Drug Abuse Patient Records regulations: The Federal rules restrict any use of the information to criminally investigate or prosecute any alcohol or drug abuse patient.[facility] HospitalIn the event this information is protected by the Federal Confidentiality of Alcohol and Drug Abuse Patient Records regulations: The Federal rules restrict any use of the information to criminally investigate or prosecute any alcohol or drug abuse patient.[facility] HospitalIn the event this information is protected by the Federal Confidentiality of Alcohol and Drug Abuse Patient Records regulations: The Federal rules restrict any use of the information to criminally investigate or prosecute any alcohol or drug abuse patient.[facility] HospitalIn the event this information is protected by the Federal Confidentiality of Alcohol and Drug Abuse Patient Records regulations: The Federal rules restrict any use of the information to criminally investigate or prosecute any alcohol or drug abuse patient.[facility] HospitalIn the event this information is protected by the Federal Confidentiality of Alcohol and Drug Abuse Patient Records regulations: The Federal rules restrict any use of the information to criminally investigate or prosecute any alcohol or drug abuse patient.[facility] HospitalIn the event this information is protected by the Federal Confidentiality of Alcohol and Drug Abuse Patient Records regulations: The Federal rules restrict any use of the information to criminally investigate or prosecute any alcohol or drug abuse patient.[facility] HospitalIn the event this information is protected by the Federal Confidentiality of Alcohol and Drug Abuse Patient Records regulations: The Federal rules restrict any use of the information to criminally investigate or prosecute any alcohol or drug abuse patient.[facility] HospitalIn the event this information is protected by the Federal Confidentiality of Alcohol and Drug Abuse Patient Records regulations: The Federal rules restrict any use of the information to criminally investigate or prosecute any alcohol or drug abuse patient.[facility] HospitalIn the event this information is protected by the Federal Confidentiality of Alcohol and Drug Abuse Patient Records regulations: The Federal rules restrict any use of the information to criminally investigate or prosecute any alcohol or drug abuse patient.[facility] HospitalIn the event this information is protected by the Federal Confidentiality of Alcohol and Drug Abuse Patient Records regulations: The Federal rules restrict any use of the information to criminally investigate or prosecute any alcohol or drug abuse patient.[facility] HospitalIn the event this information is protected by the Federal Confidentiality of Alcohol and Drug Abuse Patient Records regulations: The Federal rules restrict any use of the information to criminally investigate or prosecute any alcohol or drug abuse patient.[facility] HospitalIn the event this information is protected by the Federal Confidentiality of Alcohol and Drug Abuse Patient Records regulations: The Federal rules restrict any use of the information to criminally investigate or prosecute any alcohol or drug abuse patient.[facility] HospitalIn the event this information is protected by the Federal Confidentiality of Alcohol and Drug Abuse Patient Records regulations: The Federal rules restrict any use of the information to criminally investigate or prosecute any alcohol or drug abuse patient.[facility] HospitalIn the event this information is protected by the Federal Confidentiality of Alcohol and Drug Abuse Patient Records regulations: The Federal rules restrict any use of the information to criminally investigate or prosecute any alcohol or drug abuse patient.[facility] HospitalIn the event this information is protected by the Federal Confidentiality of Alcohol and Drug Abuse Patient Records regulations: The Federal rules restrict any use of the information to criminally investigate or prosecute any alcohol or drug abuse patient.[facility] HospitalIn the event this information is protected by [...] or prosecute any alcohol or drug abuse patient.[facility] HospitalIn the event this information is protected by the Federal Confidentiality of Alcohol and Drug Abuse Patient Records regulations: The Federal rules restrict any use of the information to criminally investigate or prosecute any alcohol or drug abuse patient.[facility] HospitalIn the event this information is protected by the Federal Confidentiality of Alcohol and Drug Abuse Patient Records regulations: The Federal rules restrict any use of the information to criminally investigate or prosecute any alcohol or drug abuse patient.[facility] HospitalIn the event this information is protected by the Federal Confidentiality of Alcohol and Drug Abuse Patient Records regulations: The Federal rules restrict any use of the information to criminally investigate or prosecute any alcohol or drug abuse patient.[facility] HospitalIn the event this information is protected by the Federal Confidentiality of Alcohol and Drug Abuse Patient Records regulations: The Federal rules restrict any use of the information to criminally investigate or prosecute any alcohol or drug abuse patient.[facility] HospitalIn the event this information is protected by the Federal Confidentiality of Alcohol and Drug Abuse Patient Records regulations: The Federal rules restrict any use of the information to criminally investigate or prosecute any alcohol or drug abuse patient.[facility] HospitalIn the event this information is protected by the Federal Confidentiality of Alcohol and Drug Abuse Patient Records regulations: The Federal rules restrict any use of the information to criminally investigate or prosecute any alcohol or drug abuse patient.[facility] HospitalIn the event this information is protected by the Federal Confidentiality of Alcohol and Drug Abuse Patient Records regulations: The Federal rules restrict any use of the information to criminally investigate or prosecute any alcohol or drug abuse patient.[facility] HospitalIn the event this information is protected by the Federal Confidentiality of Alcohol and Drug Abuse Patient Records regulations: The Federal rules restrict any use of the information to criminally investigate or prosecute any alcohol or drug abuse patient.[facility] HospitalIn the event this information is protected by the Federal Confidentiality of Alcohol and Drug Abuse Patient Records regulations: The Federal rules restrict any use of the information to criminally investigate or prosecute any alcohol or drug abuse patient.[facility] HospitalIn the event this information is protected by the Federal Confidentiality of Alcohol and Drug Abuse Patient Records regulations: The Federal rules restrict any use of the information to criminally investigate or prosecute any alcohol or drug abuse patient.[facility] HospitalIn the event this information is protected by the Federal Confidentiality of Alcohol and Drug Abuse Patient Records regulations: The Federal rules restrict any use of the information to criminally investigate or prosecute any alcohol or drug abuse patient.[facility] HospitalIn the event this information is protected by the Federal Confidentiality of Alcohol and Drug Abuse Patient Records regulations: The Federal rules restrict any use of the information to criminally investigate or prosecute any alcohol or drug abuse patient.[facility] Reason for Visit (unrecogniz ed section and content) Reason Comments Cigna form Linda Reason Onset Date Comments Care 07/20/2021 Reason Comments US Specialty Diagnoses / Procedures Referred By Ana dennis Referred To Contact [facility] Diagnoses 11 weeks gestation of History of gestational diabetes in prior , currently Hx of preeclampsia, prior , currently Encounter for supervision of other normal in first trimester Procedures OBSTETRIC ULTRASOUND WHI US PREG UTERUS AFTER 1ST TRIMEST GESTATION Dante Waite MD [address] [place] [address] [facility] [address] [place] [address] Referral ID Status Reason Start Date Expiration Date V isits Requested Visits Authorized [id number] Closed Auto-Generate d Referral 06/26/2021 06/26/2022 1 [...] Referred By Ana t Referred To Contact [facility] Diagnoses Diet controlled gestational diabetes mellitus (GDM) in third trimester 32 weeks gestation of Supervision of other high risk pregnancies, third trimester Procedures OBSTETRIC ULTRASOUND WHI US PREG UTERUS AFTER 1ST TRIMEST GESTATION Dante Waite MD [address] [place] [address] [address] Referral ID Status Reason Start Date Expiration Date V isits Requested Visits Authorized [id number] Closed Auto-Generate d Referral 11/20/2021 11/20/2022 1 [...] Referred By Ana dennis Referred To Contact [facility] Diagnoses Encounter for supervision of normal in multigravida Hx of preeclampsia, prior , currently 9 weeks gestation of Procedures OBSTETRIC ULTRASOUND WHI US PREG UTERUS AFTER 1ST TRIMEST GESTATION Dante Waite MD [address] [place] [address] Phone: tel: fax: [address] [address] Referral ID Status Reason Start Date Expiration Date V isits Requested Visits Authorized [id number] Closed Auto-Generate d Referral 05/04/2024 05/04/2025 1 [...] Care Teams (unrecognized sec tion and content) Sas Programmer Analyst Relationship Specialty Start Date End Date Min Bermeo, DO PCP - General Genetics 03/28/11 Sas Programmer Analyst Relationship Specialty Start Date End Date Min Bermeo, DO PCP - General Genetics 03/28/11 Sas Programmer Analyst Relationship Specialty Start Date End Date Min Bermeo, DO PCP - General Genetics 03/28/11 Sas Programmer Analyst Relationship Specialty Start Date End Date Min Bermeo, DO PCP - General Genetics 03/28/11 Sas Programmer Analyst Relationship Specialty Start Date End Date Min Bermeo, DO PCP - General Genetics 03/28/11 Sas Programmer Analyst Relationship Specialty Start Date End Date Min Bermeo, DO PCP - General Genetics 03/28/11 Sas Programmer Analyst Relationship Specialty Start Date End Date Min Bermeo, DO PCP - General Genetics 03/28/11 Sas Programmer Analyst Relationship Specialty Start Date End Date Min Bermeo, DO PCP - General Genetics 03/28/11 Sas Programmer Analyst Relationship Specialty Start Date End Date Min Bermeo, DO PCP - General Genetics 03/28/11 Sas Programmer Analyst Relationship Specialty Start Date End Date Min Bermeo, DO PCP - General Genetics 03/28/11 Sas Programmer Analyst Relationship Specialty Start Date End Date Min Bermeo, DO PCP - General Genetics 03/28/11 Sas Programmer Analyst Relationship Specialty Start Date End Date Min Bermeo, DO PCP - General Genetics 03/28/11 Sas Programmer Analyst Relationship Specialty Start Date End Date Min Bermeo, DO PCP - General Genetics 03/28/11 Sas Programmer Analyst Relationship Specialty Start Date End Date Min Bermeo, DO PCP - General Genetics 03/28/11 Sas Programmer Analyst Relationship Specialty Start Date End Date Min Bermeo, DO PCP - General Genetics 03/28/11 Team Status: Active Member Role Status Dates Dr. Kathy Vyas MD Primary Care Provider Active Team Status: Inactive Member Role Status Dates Dr. Kathy Vyas MD Primary Care Provider Active Dr. Leonel Zelaya MD Emergency Provider Active Sas Programmer Analyst Relationship Specialty Start Date End Date Kathy Vyas MD [address] [place] [address] PCP - General Family Medicine 09/16/22 Sas Programmer Analyst Relationship Specialty Start Date End Date Kathy Vyas MD [address] [place] [address] PCP - General Family Medicine 09/16/22 Sas Programmer Analyst Relationship Specialty Start Date End Date Kathy Vyas MD [address] [place] [address] PCP - General Family Medicine 09/16/22 Sas Programmer Analyst Relationship Specialty Start Date End Date Kathy Vyas MD [address] [place] [address] PCP - General Family Medicine 09/16/22 Sas Programmer Analyst Relationship Specialty Start Date End Date Kathy Vyas MD [address] [place] [address] PCP - General Family Medicine 09/16/22 Sas Programmer Analyst Relationship Specialty Start Date End Date Kathy Vyas MD [address] [place] [address] PCP - General Family Medicine 09/16/22 Sas Programmer Analyst Relationship Specialty Start Date End Date Kathy Vyas MD [address] [place] [address] PCP - General Family Medicine 09/16/22 Sas Programmer Analyst Relationship Specialty Start Date End Date Kathy Vyas MD [address] [place] [address] PCP - General Family Medicine 09/16/22 Sas Programmer Analyst Relationship Specialty Start Date End Date Kathy Vyas MD [address] [place] [address] PCP - General Family Medicine 09/16/22 Sas Programmer Analyst Relationship Specialty Start Date End Date Kathy Vyas MD [address] [place] [address] PCP - General Family Medicine 09/16/22 Sas Programmer Analyst Relationship Specialty Start Date End Date Kathy Vyas MD [address] [place] [address] PCP - General Family Medicine 09/16/22 Sas Programmer Analyst Relationship Specialty Start Date End Date Kathy Vyas MD [address] [place] [address] PCP - General Family Medicine 09/16/22 Sas Programmer Analyst Relationship Specialty Start Date End Date Kathy Vyas MD [address] [place] [address] PCP - General Family Medicine 09/16/22 Sas Programmer Analyst Relationship Specialty Start Date End Date Kathy Vyas MD [address] [place] [address] PCP - General Family Medicine 09/16/22 Sas Programmer Analyst Relationship Specialty Start Date End Date Kathy Vyas MD [address] [place] [address] PCP - General Family Medicine 09/16/22 Sas Programmer Analyst Relationship Specialty Start Date End Date Kathy Vyas MD [address] [place] [address] PCP - General Family Medicine 09/16/22 Sas Programmer Analyst Relationship Specialty Start Date End Date Kathy Vyas MD [address] [place] [address] PCP - General Family Medicine 09/16/22 Sas Programmer Analyst Relationship Specialty Start Date End Date Kathy Vyas MD [address] [place] [address] PCP - General Family Medicine 09/16/22 Sas Programmer Analyst Relationship Specialty Start Date End Date Kathy Vyas MD [address] [place] [address] PCP - General Family Medicine 09/16/22 Sas Programmer Analyst Relationship Specialty Start Date End Date Kathy Vyas MD [address] [place] [address] PCP - General Family Medicine 09/16/22 Sas Programmer Analyst Relationship Specialty Start Date End Date Kathy Vyas MD [address] [place], [place] [id number] PCP - General Family Medicine 09/16/22 Sas Programmer Analyst Relationship Specialty Start Date End Date Kathy Vyas MD [address] [place], [place] [id number] PCP - General Family Medicine 09/16/22 Team [...] November 15, 2024 End: November 15, 2024 Sas Programmer Analyst Relationship Specialty Start Date End Date Kathy Vyas MD [address] [place] [address] PCP - General Family Medicine 09/16/22 Sas Programmer Analyst Relationship Specialty Start Date End Date Kathy Vyas MD [address] [place] [address] PCP - General Family Medicine 09/16/22 Sas Programmer Analyst Relationship Specialty Start Date End Date Kathy Vyas MD [address] [place], [place] [id number] PCP - General Family Medicine 09/16/22 Sas Programmer Analyst Relationship Specialty Start Date End Date Kathy Vyas MD [address] [place] [address] PCP - General Family Medicine 09/16/22 Goals (unrecognized section and content) Goals may be documented in a n alternate sectionGoals may be documented in an alternate sectionGoals may be documented in an alternate section INFORMATION SOURCE (unrecogn ized section and content) DATE CREATED AUTHOR 11/23/2024 [place] [facility] [place] CREATED AUTHOR AUTHOR'S ORGANIZ ATION 11/26/2024 [facility] FOR RECORDS PERTAINING TO PATIENTS WHO ARE [...] BE BASED ON THE PRIMARY CLINICAL RECORDS. [facility] [employer] [facility]. provides no warranty or guarantee of the accuracy or completeness of information in this document.
--- OUTSIDE RECORDS SUMMARY | 2024-11-28 09:40 | XMS RPT_ITS | CCD ---
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 Kathy Vyas MD Primary Care Provider [phone] Tara Parks CNM Attending Provider Tara Parks CNM Referring Provider Dante Waite [...] (1 source) Sulfonamides (Antibiotic) Drug Allergy 2 [facility] Work Phone: (20 sources) Sulfonamides (Antibiotic); Translations: [SULFA (SULFONAMIDE ANTIBIOTICS)] Drug Intolerance 2 [facility] Work Phone: (4 sources) Sulfonamides (Antibiotic) Allergy to substance 2 [facility] (1 source) Sulfonamides (Antibiotic) Drug allergy (disorder) 5 [facility] Repository Medications Current Medications Medication Drug Class(es) [...] EC tablet Indications: with uncertain dates, antepartum ([facility]) , Encounter for supervision of normal in multigravida ([facility]) Take 1 tablet by mouth once daily. [...] dose. Iron (1 source) Start: 11-16-19 Pnv 645-Ijet-Qjodqw-Dha 90 mg iron- 1 mg-200 mg capsule [...] (Normalized) Sig (Original) 1 ml HYDROXYprogesterone caproate (detention) 250 mg/ml injection (1 source) Start: 2 End: HYDROXYprogesterone caproate (PF) 250 mg injection (LINDA) Start: 08-17-2021 End: 08-17-2021 HYDROXYprogesterone caproate (PF) 250 mg injection (LINDA) Polyethylene Glycols (20 sources) End: 10-10-2023 polyethylene glycol 3350 ([place] RALAX ORAL) Take by mouth. 10/10/2023 Discontinued End: 10-10-2023 polyethylene glycol 3350 ([place] RALAX ORAL) Take by mouth. 0 10/10/2023 Discontinued polyethylene gly col 3350 (MIRALAX ORAL) Take by mouth. 0 Active Comment on above: Take by mouth. Wmkjixpl-Xi-Hfv-Fe- FA ( VITAMIN) tab (20 sources) End: 10-10-2023 take 1 tablet by mouth once Vwinobqq-Ys-Lul-Fe-FA ( VITAMIN) tab Take 1 tablet by mouth. 10/10/2023 Discontinued End: 10-10-2023 take 1 tablet by mouth once Uaaqxjgf-Sz-Dow-Fe-FA ( VITAMIN) tab Take 1 tablet by mouth. 0 10/10/2023 Discontinued take 1 tablet by garrett th once Cpytjpfh-Xx-Lrm-Fe-FA ( VITAMIN) tab Take 1 tablet by [...] Translations: [Hx of preeclampsia, prior , currently ([facility])] Onset: 04-19-2024 Episodic Other complications of (1 source) Supervision of high risk , unspecified, second trimester; Translations: [Supervision of high risk in second trimester ([facility])] Onset: 07-21-2024 Episodic Other and delivery including [...] of ; Translations: [24 weeks gestation of ([facility])] Onset: 08-18-2024 Episodic Residual codes; unclassified (2 sources) 9 weeks gestation of ; Translations: [9 weeks gestation of ([facility])] Onset: 06-02-2024 Episodic Residual codes; unclassified (1 source) Less than 8 weeks gestation of ; Translations: [7 weeks gestation of ] Onset: 05-04-2024 Episodic Results Test Name Value Interpretation Reference Range Facil ity URINE OB DIP B/Oon Glucose Ql (U) Negative Neg mg/dL [facility] Interpretation and review of laboratory results Normal [facility] Protein.monoclonal (U) [Mass/Vol] Negative Neg mg/dL [facility] HISTORY PHYSICALon HISTORY PHYSICAL HNO ID: [id number] Author: DANTE WAITE MD Service: ? Author [...] Acne Anemia Gestational diabetes mellitus, class A1 ([facility]) 11/22/2019 Hx of preeclampsia, prior , currently ([facility]) 04/19/2024 Preeclampsia ([facility]) PAST SURGICAL HISTORY Procedure Laterality Date EXTRACTION [...] Grandfather Leukemia Maternal Grandfather Heart Paternal Grandmother [place] Stroke Paternal Grandmother Heart Paternal Grandfather 48 [...] medications and allergies Dante Waite M.D. Normal [facility] OB Triage Physician Noteon 0 11-15-2024 OB Triage Physician Note [facility] Medical Records Department [address] [place] [address] OB Triage Physician Note 11/15/24 1249 MR#: [id number] Acct: [id number] Name: HERB MORAN Rep #: [id number] : 1990 34 From: Dante Waite MD PCP: Dr. Kathy Vyas MD Status:REG CLI Y Location: [place] [address] HPI - General General Date of Admission: 11/15/24 Date of Service: 11/15/24 Chief Complaint: breech HPI Narrative HERB MORAN, is a 34 F who presents Maternal Data Information Final EDIL: 12/02/24 Gestational age: 37 4/7 PFSH [facility] Medical History (Updated 11/15/24 @ 12:51 [...] MD; Dr. Dante Waite MD Signed Normal [facility] URINE OB DIP B/Oon 5 Glucose Ql (U) Negative Neg mg/dL [facility] Interpretation and review of laboratory results Normal [facility] Protein.monoclonal (U) [Mass/Vol] Negative Neg mg/dL [facility] ROUTINE, GROUP B ST REPTOCOCCUS BY PCRon 11-10-2024 ROUTINE, GROUP B STREPTOCOCCUS BY PCR Not detected Normal [facility] Comment on above: Performed By: #### G BPCR ####[facility] LABCLIA [id number] [address] STATES OF [facility] URINE OB DIP B/Oon 5 Glucose Ql (U) Negative Neg mg/dL [facility] Interpretation and review of laboratory results Normal [facility] Protein.monoclonal (U) [Mass/Vol] Negative Neg mg/dL [facility] URINE OB DIP B/Oon 5 Glucose Ql (U) Negative Neg mg/dL [facility] Interpretation and review of laboratory results Normal [facility] Protein.monoclonal (U) [Mass/Vol] Negative Neg mg/dL [facility] CNPNon 10-04-2024 CNPN Telephone (OBGYWM) HERB MORAN ([id number]) 1990 F Date Time Provider Department 10/04/24 DANTE WAITE During your visit today, we recorded the following information about you: Mare Larios RN 10/04/2024 8:50 AM Signed Received breast pump RX from [employer]. To RR to sign. GISSELLE Ocampo Tara, [...] Status:Closed by CEM BACK on 6/23/25 Normal [facility] Bacteria Ur Culton Bacteria identified Cx Nom (U) ORGANISM ID: 1 10,000 -<50,000 CFU/ml Normal urogenital leandro Normal [facility] Comment on above: Performed By: #### 6 30-4 ####[facility] LABCLIA [id number] [address] [place] CBC W Auto Differential pane l (Bld)on 09-27-2024 Basophils (Bld) [#/Vol] 0.03 10*3/uL [facility] Basophils/100 WBC (Bld) 0.3 % [facility] Differential cell count method Nom (Bld) Auto [facility] Eosinophils (Bld) [#/Vol] 0.21 10*3/uL [facility] Eosinophils/100 WBC (Bld) 2 % [facility] Erythrocyte distribution width (RBC) [Ratio] 15.9 % High 11.5 - 15.0 % [facility] Hematocrit (Bld) [Volume fraction] 32.5 % Low 36.0 - 46.0 % [facility] Hemoglobin (Bld) [Mass/Vol] 10.7 g/dL Low 11.5 - 15.5 g/dL [facility] Immature granulocytes (Bld) [#/Vol] 0.12 10*3/uL High [facility] Immature granulocytes/100 WBC (Bld) 1.1 % [facility] Interpretation and review of laboratory results Abnormal [facility] Lymphocytes (Bld) [#/Vol] 2.17 10*3/uL [facility] Lymphocytes/100 WBC (Bld) 20.4 % [facility] MCH (RBC) [Entitic mass] 27.4 pg 26.0 - 34.0 pg [facility] MCHC (RBC) [Mass/Vol] 32.9 g/dL 30.5 - 36.0 g/dL [facility] MCV (RBC) [Entitic vol] 83.1 fL 80.0 - 100.0 fL [facility] Monocytes (Bld) [#/Vol] 0.87 10*3/uL High [facility] Monocytes/100 WBC (Bld) 8.2 % [facility] Neutrophils (Bld) [#/Vol] 7.26 10*3/uL [facility] Neutrophils/100 WBC (Bld) 68 % [facility] Nucleated RBC (Bld) [#/Vol] NINF [facility] Nucleated RBC/100 WBC (Bld) [Ratio] 0 % /100 WBC [facility] Platelet mean volume (Bld) [Entitic vol] 8.9 fL Low 9.0 - 12.7 fL [facility] Platelets (Bld) [#/Vol] 333 10*3/uL [facility] RBC (Bld) [#/Vol] 3.91 10*6/uL 3.90 - 5.2 0 m/uL [facility] WBC (Bld) [#/Vol] 10.66 10*3/uL [facility] Basophils (Bld) [#/Vol] 0.03 10*3/uL Normal <0.11 [facility] Comment on above: Order Comment: Speci men Type: BLOOD SPECIMENOrdering Facility: [facility] Address: [address] [place] [address] Performed By: #### 5 7021-8 ####[facility] [id number] [place] [address] [place] Basophils/100 WBC (Bld) 0.3 % Normal [facility] Comment on above: Order Comment: Speci men Type: BLOOD SPECIMENOrdering Facility: [facility] Address: [address] [place] [address] Performed By: #### 5 7021-8 ####[facility] [id number] [place] [address] [place] Differential cell count method Nom (Bld) Auto Normal [facility] Comment on above: Order Comment: Speci men Type: BLOOD SPECIMENOrdering Facility: [facility] Address: [address] [place] [address] Performed By: #### 5 7021-8 ####[facility] [id number] [place] [address] [place] Eosinophils (Bld) [#/Vol] 0.21 10*3/uL Normal <0.46 [facility] Comment on above: Order Comment: Speci men Type: BLOOD SPECIMENOrdering Facility: [facility] Address: [address] [place] [address] Performed By: #### 5 7021-8 ####[facility] [id number] [place] [address] [place] Eosinophils/100 WBC (Bld) 2.0 % Normal [facility] Comment on above: Order Comment: Speci men Type: BLOOD SPECIMENOrdering Facility: [facility] Address: [address] [place] [address] Performed By: #### 5 7021-8 ####[facility] [id number] [place] [address] [place] Erythrocyte distribution width (RBC) [Ratio] 15.9 % High 11.5-15.0 [facility] Comment on above: Order Comment: Speci men Type: BLOOD SPECIMENOrdering Facility: [facility] Address: [address] [place] [address] Performed By: #### 5 7021-8 ####[facility] [id number] [place] [address] [place] Hematocrit (Bld) [Volume fraction] 32.5 % Low 36.0-46.0 [facility] Comment on above: Order Comment: Speci men Type: BLOOD SPECIMENOrdering Facility: [facility] Address: [address] [place] [address] Performed By: #### 5 7021-8 ####[facility] [id number] [place] [address] [place] Hemoglobin (Bld) [Mass/Vol] 10.7 g/dL Low 11.5-15.5 [facility] Comment on above: Order Comment: Speci men Type: BLOOD SPECIMENOrdering Facility: [facility] Address: [address] [place] [address] Performed By: #### 5 7021-8 ####[facility] MILLJAMESWNCLIA [id number] [place] [address] [place] Immature granulocytes (Bld) [#/Vol] 0.12 10*3/uL High <0.10 [facility] Comment on above: Order Comment: Speci men Type: BLOOD SPECIMENOrdering Facility: [facility] Address: [address] [place] [address] Performed By: #### 5 7021-8 ####[facility] SAMIRWNCLIA [id number] [place] [address] [place] Immature granulocytes/100 WBC (Bld) 1.1 % Normal [facility] Comment on above: Order Comment: Speci men Type: BLOOD SPECIMENOrdering Facility: [facility] Address: [address] [place] [address] Performed By: #### 5 7021-8 ####[facility] SAMIRWNCLIA [id number] [place] [address] [place] Lymphocytes (Bld) [#/Vol] 2.17 10*3/uL Normal 1.00-4.00 [facility] Comment on above: Order Comment: Speci men Type: BLOOD SPECIMENOrdering Facility: [facility] Address: [address] [place] [address] Performed By: #### 5 7021-8 ####[facility] MILLTOWNCLIA [id number] [place] [address] [place] Lymphocytes/100 WBC (Bld) 20.4 % Normal [facility] Comment on above: Order Comment: Speci men Type: BLOOD SPECIMENOrdering Facility: [facility] Address: [address] [place] [address] Performed By: #### 5 7021-8 ####[facility] MILLWNCLIA [id number] [place] [address] [place] MCH (RBC) [Entitic mass] 27.4 pg Normal 26.0-34.0 [facility] Comment on above: Order Comment: Speci men Type: BLOOD SPECIMENOrdering Facility: [facility] Address: [address] [place] [address] Performed By: #### 5 7021-8 ####[facility] [id number] [place] [address] [place] MCHC (RBC) [Mass/Vol] 32.9 g/dL Normal 30.5-36.0 [facility] Comment on above: Order Comment: Speci men Type: BLOOD SPECIMENOrdering Facility: [facility] Address: [address] [place] [address] Performed By: #### 5 7021-8 ####[facility] [id number] [place] [address] [place] MCV (RBC) [Entitic vol] 83.1 fL Normal 80.0-100.0 [facility] Comment on above: Order Comment: Speci men Type: BLOOD SPECIMENOrdering Facility: [facility] Address: [address] [place] [address] Performed By: #### 5 7021-8 ####[facility] [id number] [place] [address] [place] Monocytes (Bld) [#/Vol] 0.87 10*3/uL High <0.87 [facility] Comment on above: Order Comment: Speci men Type: BLOOD SPECIMENOrdering Facility: [facility] Address: [address] [place] [address] Performed By: #### 5 7021-8 ####[facility] [id number] [place] [address] [place] Monocytes/100 WBC (Bld) 8.2 % Normal [facility] Comment on above: Order Comment: Speci men Type: BLOOD SPECIMENOrdering Facility: [facility] Address: [address] [place] [address] Performed By: #### 5 7021-8 ####[facility] [id number] [place] [address] [place] Neutrophils (Bld) [#/Vol] 7.26 10*3/uL Normal 1.45-7.50 [facility] Comment on above: Order Comment: Speci men Type: BLOOD SPECIMENOrdering Facility: [facility] Address: [address] [place] [address] Performed By: #### 5 7021-8 ####[facility] [id number] [place] [address] [place] Neutrophils/100 WBC (Bld) 68.0 % Normal [facility] Comment on above: Order Comment: Speci men Type: BLOOD SPECIMENOrdering Facility: [facility] Address: [address] [place] [address] Performed By: #### 5 7021-8 ####[facility] [id number] [place] [address] [place] Nucleated RBC (Bld) [#/Vol] 10*3/uL Normal <0.01 [facility] Comment on above: Order Comment: Speci men Type: BLOOD SPECIMENOrdering Facility: [facility] Address: [address] [place] [address] Performed By: #### 5 7021-8 ####[facility] [id number] [place] [address] [place] Nucleated RBC/100 WBC (Bld) [Ratio] 0.0 /100 WBC Normal [facility] Comment on above: Order Comment: Speci men Type: BLOOD SPECIMENOrdering Facility: [facility] Address: [address] [place], [place] [address] Performed By: #### 5 7021-8 ####[facility] ERNESTINENCASHLEY [id number] [place] [address] [place] Platelet mean volume (Bld) [Entitic vol] 8.9 fL Low 9.0-12.7 [facility] Comment on above: Order Comment: Speci men Type: BLOOD SPECIMENOrdering Facility: [facility] Address: [address] [place] [address] Performed By: #### 5 7021-8 ####[facility] [id number] [place] [address] [place] Platelets (Bld) [#/Vol] 333 10*3/uL Normal 150-400 [facility] Comment on above: Order Comment: Speci men Type: BLOOD SPECIMENOrdering Facility: [facility] Address: [address] [place] [address] Performed By: #### 5 7021-8 ####[facility]ITALNCYOGESHA [id number] [place] [address] [place] RBC (Bld) [#/Vol] 3.91 10*6/uL Normal 3.90-5.20 [facility] Comment on above: Order Comment: Speci men Type: BLOOD SPECIMENOrdering Facility: [facility] Address: [address] [place], [place] [address] Performed By: #### 5 7021-8 ####[facility] [id number] [place] [address] [place] WBC (Bld) [#/Vol] 10.66 10*3/uL Normal 3.70-11.00 [facility] Comment on above: Order Comment: Speci men Type: BLOOD SPECIMENOrdering Facility: [facility] Address: [address] [place] [address] Performed By: #### 5 7021-8 ####[facility] LETTY DAWSONIDAHO FALLSNCLIPrem [id number] [place] [address] [place] Comprehensive metabolic 2000 panelOrdered By: Elizabeth Resendiz on 09-27-2024 Albumin [Mass/Vol] 3.7 g/dL Low 3.9 - 4.9 g/dL Cl [facility] ALP [Catalytic activity/Vol] 124 U/L High 34 - 123 U/L [facility] ALT [Catalytic activity/Vol] 28 U/L 7 - 38 U/L [facility] Anion gap [Moles/Vol] 12 mmol/L 8 - 15 mmol/L [facility] AST [Catalytic activity/Vol] 20 U/L 13 - 35 U/L [facility] Bilirubin [Mass/Vol] mg/dL Low 0.2 - 1.3 mg/dL [facility] Calcium [Mass/Vol] 8.6 mg/dL 8.5 - 10. 2 mg/dL [facility] Chloride [Moles/Vol] 106 mmol/L 98 - 107 mmol/L [facility] CO2 [Moles/Vol] 17 mmol/L Low 22 - 30 mmol/L [facility] Creatinine [Mass/Vol] 0.52 mg/dL Low 0.58 - 0.96 mg/dL [facility] GFR/1.73 sq M.predicted among non-blacks MDRD (S/P/Bld) [Vol rate/Area] 127 mL/min/{1.73_m2} - PINF [facility] Comment on above: Estimated Glomerular Filtration [...] 111 mg/dL High 74 - 99 mg/dL [facility] Comment on above: The [place] Diab[employer] [place] Association (ADA) provides guidance for [...] Standards of Medical Care in Diabetes 2016, [place] [employer] Association. Diabetes Care. 2016.39(Suppl 1). Interpretation and review of laboratory results Abnormal [facility] Potassium [Moles/Vol] 3.6 mmol/L Low 3.7 - 5.1 mmol/L [facility] Protein [Mass/Vol] 6.5 g/dL 6.3 - 8.0 g/dL [facility] Sodium [Moles/Vol] 135 mmol/L Low 136 - 144 mmol/L [facility] Urea nitrogen [Mass/Vol] 8 mg/dL 7 - 21 mg/dL [facility] Comprehensive metabolic 2000 panelon 09-27-2024 Albumin [Mass/Vol] 3.7 g/dL Low 3.9-4.9 [facility] Comment on above: Order Comment: Speci men Type: BLOOD SPECIMENOrdering Facility: [facility] Address: [address] [place] [address] Performed By: #### 2 4323-8 ####[facility] [id number] [place] [address] [place] ALP [Catalytic activity/Vol] 124 U/L High 34-123 [facility] Comment on above: Order Comment: Speci men Type: BLOOD SPECIMENOrdering Facility: [facility] Address: [address] [place] [address] Performed By: #### 2 4323-8 ####[facility] [id number] [place] [address] [place] ALT [Catalytic activity/Vol] 28 U/L Normal 7-38 [facility] Comment on above: Order Comment: Speci men Type: BLOOD SPECIMENOrdering Facility: [facility] Address: [address] [place] [address] Performed By: #### 2 4323-8 ####[facility] LETTY MILLTOWNCLIA [id number] [place] [address] [place] Anion gap [Moles/Vol] 12 mmol/L Normal 8-15 [facility] Comment on above: Order Comment: Speci men Type: BLOOD SPECIMENOrdering Facility: [facility] Address: [address] [place] [address] Performed By: #### 2 4323-8 ####[facility] MILLTOWNCLIA [id number] [place] [address] [place] AST [Catalytic activity/Vol] 20 U/L Normal 13-35 [facility] Comment on above: Order Comment: Speci men Type: BLOOD SPECIMENOrdering Facility: [facility] Address: [address] [place] [address] Performed By: #### 2 4323-8 ####[facility]ITALWNCL[facility] [id number] [place] [address] [place] Bilirubin [Mass/Vol] mg/dL Low 0.2-1.3 [facility] Comment on above: Order Comment: Speci men Type: BLOOD SPECIMENOrdering Facility: [facility] Address: [address] [place] [address] Performed By: #### 2 4323-8 ####[facility] MILLTOWNCLIA [id number] [place] [address] [place] Calcium [Mass/Vol] 8.6 mg/dL Normal 8.5-10.2 [facility] Comment on above: Order Comment: Speci men Type: BLOOD SPECIMENOrdering Facility: [facility] Address: [address] [place], [place] [address] Performed By: #### 2 4323-8 ####[facility] MILLTOWNCLIA [id number] [place] [address] [place] Chloride [Moles/Vol] 106 mmol/L Normal 98-107 [facility] Comment on above: Order Comment: Speci men Type: BLOOD SPECIMENOrdering Facility: [facility] Address: [address] [place] [address] Performed By: #### 2 4323-8 ####[facility] [id number] [place] [address] [place] CO2 [Moles/Vol] 17 mmol/L Low 22-30 [facility] Comment on above: Order Comment: Speci men Type: BLOOD SPECIMENOrdering Facility: [facility] Address: [address] [place] [address] Performed By: #### 2 4323-8 ####[facility] [id number] [place] [address] [place] Creatinine [Mass/Vol] 0.52 mg/dL Low 0.58-0.96 [facility] Comment on above: Order Comment: Speci men Type: BLOOD SPECIMENOrdering Facility: [facility] Address: [address] [place] [address] Performed By: #### 2 4323-8 ####[facility] [id number] [address] OF [facility] Creatinine and Glomerular filtration rate.predicted panel (S/P/Bld) 127 mL/min/1.73m??? Normal >=60 [facility] Comment on above: Order Comment: Speci men Type: BLOOD SPECIMENOrdering Facility: [facility] Address: [address] [place] [address] Result Comment: Ángela mated Glomerular Filtration Rate [...] actual GFR. Performed By: #### 2 4323-8 ####[facility] MILLJAMESWNCLIA [id number] [place] [address] [place] Glucose [Mass/Vol] 111 mg/dL High 74-99 [facility] Comment on above: Order Comment: Speci men Type: BLOOD SPECIMENOrdering Facility: [facility] Address: [address] [place] [address] Result Comment: The [place] Diabetes Association (ADA) provides guidance for cutoff [...] Standards of Medical Care in Diabetes 2016, [place] Diabetes Association. Diabetes Care. 2016.39(Suppl 1). Performed By: #### 2 4323-8 ####[facility] SAMIRWNCLIA [id number] [place] [address] [place] Potassium [Moles/Vol] 3.6 mmol/L Low 3.7-5.1 [facility] [facility] Comment on above: Order Comment: Speci men Type: BLOOD SPECIMENOrdering Facility: [facility] Address: [address] [id number] Performed By: #### 2 4323-8 ####[facility] SAMIRWNCLIA [id number] [place] [address] [place] Protein [Mass/Vol] 6.5 g/dL Normal 6.3-8.0 [facility] Comment on above: Order Comment: Speci men Type: BLOOD SPECIMENOrdering Facility: [facility] Address: [address] [place] [address] Performed By: #### 2 4323-8 ####[facility]ITALNCLIA [id number] [place] [address] [place] Sodium [Moles/Vol] 135 mmol/L Low 136-144 [facility] Comment on above: Order Comment: Speci men Type: BLOOD SPECIMENOrdering Facility: [facility] Address: [address] [place] [address] Performed By: #### 2 4323-8 ####[facility] [id number] [place] [address] [place] Urea nitrogen [Mass/Vol] 8 mg/dL Normal 7-21 [facility] Comment on above: Order Comment: Speci men Type: BLOOD SPECIMENOrdering Facility: [facility] Address: [address] [place] [address] Performed By: #### 2 4323-8 ####[facility] [id number] [place] [address] [place] UA DIP, URINE (POC)on 2024 BILIRUBIN UA (POCT) Negative Negative [facility] CLARITY UA (POCT) Clear [facility] COLOR UA (POCT) Yellow [facility] GLUCOSE UA (POCT) Negative Negative mg/dL [facility] Hemoglobin Ql (U) Negative Negative [facility] Interpretation and review of laboratory results Abnormal [facility] KETONE UA (POCT) Negative Negative mg/dL [facility] LEUKOCYTES UA (POCT) Trace Abnormal Negative [facility] NITRITE UA (POCT) Negative Negative [facility] PH UA (POCT) 6 4.5 - 8.0 [facility] Protein Ql (U) Trace Abnormal Negative mg/dL [facility] SPECIFIC GRAVITY UA (POCT) 1.02 1.005 - 1.030 [facility] UROBILINOGEN UA (POCT) 0.2 Normal E.U./d L [facility] Location:[facility], [address] [place], [place], [address] [place] [address] POINT OF CARE [facility] CBC W Auto Differential pane l (Bld)on 09-15-2024 Basophils (Bld) [#/Vol] 10*3/uL Normal <0.11 [facility] Comment on above: Order Comment: Speci men Type: BLOOD SPECIMENOrdering Facility: [facility] Address: [address] [place] [address] Performed By: #### 5 7021-8 ####[facility] HOSPITALWLALIA [id number] [place] [address] [place] Basophils/100 WBC (Bld) 0.2 % Normal [facility] Comment on above: Order Comment: Speci men Type: BLOOD SPECIMENOrdering Facility: [facility] Address: [address] [place] [address] Performed By: #### 5 7021-8 ####[facility] [id number] [place] [address] [place] Differential cell count method Nom (Bld) Auto Normal [facility] Comment on above: Order Comment: Speci men Type: BLOOD SPECIMENOrdering Facility: [facility] Address: [address] [place] [address] Performed By: #### 5 7021-8 ####[facility] [id number] [place] [address] [place] Eosinophils (Bld) [#/Vol] 0.22 10*3/uL Normal <0.46 [facility] Comment on above: Order Comment: Speci men Type: BLOOD SPECIMENOrdering Facility: [facility] Address: [address] [place] [address] Performed By: #### 5 7021-8 ####[facility]INLIA [id number] [place] [address] [place] Eosinophils/100 WBC (Bld) 2.7 % Normal [facility] Comment on above: Order Comment: Speci men Type: BLOOD SPECIMENOrdering Facility: [facility] Address: [address] [place] [address] Performed By: #### 5 7021-8 ####[facility] LEWIS [id number] [place] [address] [place] Erythrocyte distribution width (RBC) [Ratio] 14.9 % Normal 11.5-15.0 [facility] Comment on above: Order Comment: Speci men Type: BLOOD SPECIMENOrdering Facility: [facility] Address: [address] [place] [address] Performed By: #### 5 7021-8 ####[facility] SAMIRIDAHO FALLSNCYOGESHPrem [id number] [place] [address] [place] Hematocrit (Bld) [Volume fraction] 31.2 % Low 36.0-46.0 [facility] Comment on above: Order Comment: Speci men Type: BLOOD SPECIMENOrdering Facility: [facility] Address: [address] [place] [address] Performed By: #### 5 7021-8 ####[facility] HOSPITALOSCARA [id number] [place] [address] [place] Hemoglobin (Bld) [Mass/Vol] 10.3 g/dL Low 11.5-15.5 [facility] Comment on above: Order Comment: Speci men Type: BLOOD SPECIMENOrdering Facility: [facility] Address: [address] [place] [address] Performed By: #### 5 7021-8 ####[facility] HOSPITALPETEYLIA [id number] [place] [address] [place] Immature granulocytes (Bld) [#/Vol] 0.06 10*3/uL Normal <0.10 [facility] Comment on above: Order Comment: Speci men Type: BLOOD SPECIMENOrdering Facility: [facility] Address: [address] [place] [address] Performed By: #### 5 7021-8 ####[facility] HOSPITALWNCLIA [id number] [place] [address] [place] Immature granulocytes/100 WBC (Bld) 0.7 % Normal [facility] Comment on above: Order Comment: Speci men Type: BLOOD SPECIMENOrdering Facility: [facility] Address: [address] [place] [address] Performed By: #### 5 7021-8 ####[facility] [id number] [place] [address] [place] Lymphocytes (Bld) [#/Vol] 1.61 10*3/uL Normal 1.00-4.00 [facility] Comment on above: Order Comment: Speci men Type: BLOOD SPECIMENOrdering Facility: [facility] Address: [address] [place] [address] Performed By: #### 5 7021-8 ####[facility] [id number] [place] [address] [place] Lymphocytes/100 WBC (Bld) 19.6 % Normal [facility] Comment on above: Order Comment: Speci men Type: BLOOD SPECIMENOrdering Facility: [facility] Address: [address] [place] [address] Performed By: #### 5 7021-8 ####[facility] [id number] [place] [address] [place] MCH (RBC) [Entitic mass] 27.2 pg Normal 26.0-34.0 [facility] Comment on above: Order Comment: Speci men Type: BLOOD SPECIMENOrdering Facility: [facility] Address: [address] [place] [address] Performed By: #### 5 7021-8 ####[facility]PITALNCSANPETE VALLEY [facility] [id number] [place] [address] [place] MCHC (RBC) [Mass/Vol] 33.0 g/dL Normal 30.5-36.0 [facility] Comment on above: Order Comment: Speci men Type: BLOOD SPECIMENOrdering Facility: [facility] Address: [address] [place] [address] Performed By: #### 5 7021-8 ####[facility]PITALNCSANPETE VALLEY H[facility]PITAL [id number] [place] [address] [place] MCV (RBC) [Entitic vol] 82.5 fL Normal 80.0-100.0 [facility] Comment on above: Order Comment: Speci men Type: BLOOD SPECIMENOrdering Facility: [facility] Address: [address] [place] [address] Performed By: #### 5 7021-8 ####[facility]ITALNCSANPETE VALLEY [facility] [id number] [place] [address] [place] Monocytes (Bld) [#/Vol] 0.48 10*3/uL Normal <0.87 [facility] Comment on above: Order Comment: Speci men Type: BLOOD SPECIMENOrdering Facility: [facility] Address: [address] [place] [address] Performed By: #### 5 7021-8 ####[facility] [id number] [place] [address] [place] Monocytes/100 WBC (Bld) 5.8 % Normal [facility] Comment on above: Order Comment: Speci men Type: BLOOD SPECIMENOrdering Facility: [facility] Address: [address] [place] [address] Performed By: #### 5 7021-8 ####[facility] [id number] [place] [address] [place] Neutrophils (Bld) [#/Vol] 5.82 10*3/uL Normal 1.45-7.50 [facility] Comment on above: Order Comment: Speci men Type: BLOOD SPECIMENOrdering Facility: [facility] Address: [address] [place] [address] Performed By: #### 5 7021-8 ####[facility] SAMIRDAY [id number] [place] [address] [place] Neutrophils/100 WBC (Bld) 71.0 % Normal [facility] Comment on above: Order Comment: Speci men Type: BLOOD SPECIMENOrdering Facility: [facility] Address: [address] [place] [address] Performed By: #### 5 7021-8 ####[facility] HOSPITALPETEYPrem [id number] [place] [address] [place] Nucleated RBC (Bld) [#/Vol] 10*3/uL Normal <0.01 [facility] Comment on above: Order Comment: Speci men Type: BLOOD SPECIMENOrdering Facility: [facility] Address: [address] [place] [address] Performed By: #### 5 7021-8 ####[facility] HOSPITALNCA [id number] [place] [address] [place] Nucleated RBC/100 WBC (Bld) [Ratio] 0.0 /100 WBC Normal [facility] Comment on above: Order Comment: Speci men Type: BLOOD SPECIMENOrdering Facility: [facility] Address: [address] [place] [address] Performed By: #### 5 7021-8 ####[facility] [id number] [place] [address] [place] Platelet mean volume (Bld) [Entitic vol] 8.8 fL Low 9.0-12.7 [facility] Comment on above: Order Comment: Speci men Type: BLOOD SPECIMENOrdering Facility: [facility] Address: [address] [place] [address] Performed By: #### 5 7021-8 ####[facility] HOSPITALNCLIA [id number] [place] [address] [place] Platelets (Bld) [#/Vol] 312 10*3/uL Normal 150-400 [facility] Comment on above: Order Comment: Speci men Type: BLOOD SPECIMENOrdering Facility: [facility] Address: [address] [place] [address] Performed By: #### 5 7021-8 ####[facility] HOSPITALNCLIA [id number] [place] [address] [place] RBC (Bld) [#/Vol] 3.78 10*6/uL Low 3.90-5.20 [facility] Comment on above: Order Comment: Speci men Type: BLOOD SPECIMENOrdering Facility: [facility] Address: [address] [place] [address] Performed By: #### 5 7021-8 ####[facility] HOSPITALNCA [id number] [place] [address] [place] WBC (Bld) [#/Vol] 8.21 10*3/uL Normal 3.70-11.00 [facility] Comment on above: Order Comment: Speci men Type: BLOOD SPECIMENOrdering Facility: [facility] Address: [address] [place] [address] Performed By: #### 5 7021-8 ####[facility]OSPITALNCLIA [id number] [place] [address] [place] Ferritin SerPl-mCncon 2024 Ferritin [Mass/Vol] 8.3 ng/mL Low 14.7-205.1 [facility] Comment on above: Order Comment: Speci men Type: BLOOD SPECIMENOrdering Facility: [facility] Address: [address] [place] [address] Performed By: #### 5 0190-8, 2276- ####[facility] LABCLIA [id number] [place] [address] [place] GESTATIONAL GLUCOSE SCREEN, 1-HOUR, 50 GRAM, NON-FASTINGon 09-15-2024 Glucose [Mass/Vol] 128 mg/dL Normal 74-134 [facility] Comment on above: Order Comment: Speci men Type: BLOOD SPECIMENOrdering Facility: [facility] Address: [address] [place] [address] Result Comment: [facility] Congress of Obstetricians and Gynecologists (Mariluz/Mode) guidelines state a gestational diabetes mellitus positive screen is made, in women not previously diagnosed with overt diabetes, when the 1 hr plasma glucose level is equal to or above 140 mg/dL. The [facility] [employer] and [facility] [place] recommends a 135 mg/dL cutoff. Performed By: #### G LTGST ####[facility] [id number] [place] [address] [place] Iron and Iron binding capaci ty panelon 09-15-2024 Iron [Mass/Vol] 52 ug/dL Normal 41-186 [facility] Comment on above: Order Comment: Speci men Type: BLOOD SPECIMENOrdering Facility: [facility] Address: [address] [place] [address] Performed By: #### 5 0190-8, 4 ####[facility] LABCLIA [id number] [place] [address] [place] Iron binding capacity [Mass/Vol] >552 High 232-386 [facility] Comment on above: Order Comment: Speci men Type: BLOOD SPECIMENOrdering Facility: [facility] Address: [address] [place], [place] [address] Performed By: #### 5 0190-8, 2275-07 ####[facility] LABCLIA [id number] [place] [address] [place] Iron/TIBC [Molar ratio] <9.4 Low 15.0-57.0 [facility] Comment on above: Order Comment: Speci osito Type: BLOOD SPECIMENOrdering Facility: [facility] Address: [address] [place] [address] Performed By: #### 5 0190-8, 2276-4 ####[facility] LABCLIA [id number] [address] [place] Reagin and Treponema pallidu m IgG and IgM [Interp]on 09-15-2024 T. pallidum IgG+IgM IA Ql (S) Non-Reactive Normal Nonreactive [facility] Comment on above: Order Comment: Speci men Type: BLOOD SPECIMENOrdering Facility: [facility] Address: [address] [place] [address] Performed By: #### 7 3752-8 ####[facility] LABIA [id number] [place] [address] [place] Reagin+T pallidum IgG+IgM Se rPl-Impon 09-15-2024 Reagin and Treponema pallidum IgG and IgM [Interp] Cannot exclude recent Treponemal infection if specimen collected within 7-10 days after appearance of suspect lesions or 2-3 weeks after an exposure. Clinical correlation is required. Normal [facility] Comment on above: Order Comment: Aurorai osito Type: BLOOD SPECIMENOrdering Facility: [facility] Address: [address] [place] [address] Performed By: #### 7 3752-8 ####[facility] LABIA [id number] [place] [address] [place] Examination level ultrasound on 06-02-2024 Indication First trimester anatomic survey Impression REMOTE READ The patient is referred for a first trimester anatomy scan including nuchal translucency measurement as clinically indicated. - Single, live, intrauterine . - Speculator rump length measurement is consistent with the [...] view: visualized 4-chamber view with color: visualized 1-thyjhg-ljfrmys view: normal Abdominal cord insertion: normal Stomach: [...] Read By: Manjula Diaz M.D. MATERNAL MEDICINE [facility] Radiology Study observation (narrative) [facility] CBC W Auto Differential pane l (Bld)on 05-04-2024 Basophils (Bld) [#/Vol] 0.03 10*3/uL Normal <0.11 [facility] Comment on above: Order Comment: Speci men Type: BLOOD SPECIMENOrdering Facility: [facility] Address: [address] [place] [address] Performed By: #### 5 7021-8 ####[facility] HOSPITALWLALIA [id number] [place] [address] [place] Basophils/100 WBC (Bld) 0.4 % Normal [facility] Comment on above: Order Comment: Speci men Type: BLOOD SPECIMENOrdering Facility: [facility] Address: [address] [place] [address] Performed By: #### 5 7021-8 ####[facility] [id number] [place] [address] [place] Differential cell count method Nom (Bld) Auto Normal [facility] Comment on above: Order Comment: Speci men Type: BLOOD SPECIMENOrdering Facility: [facility] Address: [address] [place] [address] Performed By: #### 5 7021-8 ####[facility] [id number] [place] [address] [place] Eosinophils (Bld) [#/Vol] 0.07 10*3/uL Normal <0.46 [facility] Comment on above: Order Comment: Speci men Type: BLOOD SPECIMENOrdering Facility: [facility] Address: [address] [place] [address] Performed By: #### 5 7021-8 ####[facility] [id number] [place] [address] [place] Eosinophils/100 WBC (Bld) 0.8 % Normal [facility] Comment on above: Order Comment: Speci men Type: BLOOD SPECIMENOrdering Facility: [facility] Address: [address] [place] [address] Performed By: #### 5 7021-8 ####[facility] LEWIS [id number] [place] [address] [place] Erythrocyte distribution width (RBC) [Ratio] 14.4 % Normal 11.5-15.0 [facility] Comment on above: Order Comment: Speci men Type: BLOOD SPECIMENOrdering Facility: [facility] Address: [address] [place] [address] Performed By: #### 5 7021-8 ####[facility] HOSPITALALIDA [id number] [place] [address] [place] Hematocrit (Bld) [Volume fraction] 36.2 % Normal 36.0-46.0 [facility] Comment on above: Order Comment: Speci men Type: BLOOD SPECIMENOrdering Facility: [facility] Address: [address] [place] [address] Performed By: #### 5 7021-8 ####[facility] DUBLINYOGESHA [id number] [place] [address] [place] Hemoglobin (Bld) [Mass/Vol] 12.0 g/dL Normal 11.5-15.5 [facility] Comment on above: Order Comment: Speci men Type: BLOOD SPECIMENOrdering Facility: [facility] Address: [address] [place] [address] Performed By: #### 5 7021-8 ####[facility] [id number] [place] [address] [place] Immature granulocytes (Bld) [#/Vol] 0.04 10*3/uL Normal <0.10 [facility] Comment on above: Order Comment: Speci men Type: BLOOD SPECIMENOrdering Facility: [facility] Address: [address] [place] [address] Performed By: #### 5 7021-8 ####[facility] DUBLINYOGESHA [id number] [place] [address] [place] Immature granulocytes/100 WBC (Bld) 0.5 % Normal [facility] Comment on above: Order Comment: Speci men Type: BLOOD SPECIMENOrdering Facility: [facility] Address: [address] [place] [address] Performed By: #### 5 7021-8 ####[facility] [id number] [place] [address] [place] Lymphocytes (Bld) [#/Vol] 1.39 10*3/uL Normal 1.00-4.00 [facility] Comment on above: Order Comment: Speci men Type: BLOOD SPECIMENOrdering Facility: [facility] Address: [address] [place] [address] Performed By: #### 5 7021-8 ####[facility] [id number] [place] [address] [place] Lymphocytes/100 WBC (Bld) 16.4 % Normal [facility] Comment on above: Order Comment: Speci men Type: BLOOD SPECIMENOrdering Facility: [facility] Address: [address] [place] [address] Performed By: #### 5 7021-8 ####[facility] [id number] [place] [address] [place] MCH (RBC) [Entitic mass] 26.7 pg Normal 26.0-34.0 [facility] Comment on above: Order Comment: Speci men Type: BLOOD SPECIMENOrdering Facility: [facility] Address: [address] [place] [address] Performed By: #### 5 7021-8 ####[facility]ITALNCSANPET[facility] [id number] [place] [address] [place] MCHC (RBC) [Mass/Vol] 33.1 g/dL Normal 30.5-36.0 [facility] Comment on above: Order Comment: Speci men Type: BLOOD SPECIMENOrdering Facility: [facility] Address: [address] [place] [address] Performed By: #### 5 7021-8 ####[facility] [id number] [place] [address] [place] MCV (RBC) [Entitic vol] 80.4 fL Normal 80.0-100.0 [facility] Comment on above: Order Comment: Speci men Type: BLOOD SPECIMENOrdering Facility: [facility] Address: [address] [place] [address] Performed By: #### 5 7021-8 ####[facility] [id number] [place] [address] [place] Monocytes (Bld) [#/Vol] 0.47 10*3/uL Normal <0.87 [facility] Comment on above: Order Comment: Speci men Type: BLOOD SPECIMENOrdering Facility: [facility] Address: [address] [place] [address] Performed By: #### 5 7021-8 ####[facility] [id number] [place] [address] [place] Monocytes/100 WBC (Bld) 5.5 % Normal [facility] Comment on above: Order Comment: Speci men Type: BLOOD SPECIMENOrdering Facility: [facility] Address: [address] [place] [address] Performed By: #### 5 7021-8 ####[facility] [id number] [place] [address] [place] Neutrophils (Bld) [#/Vol] 6.49 10*3/uL Normal 1.45-7.50 [facility] Comment on above: Order Comment: Speci men Type: BLOOD SPECIMENOrdering Facility: [facility] Address: [address] [place] [address] Performed By: #### 5 7021-8 ####[facility] SAMIRDAY [id number] [place] [address] [place] Neutrophils/100 WBC (Bld) 76.4 % Normal [facility] Comment on above: Order Comment: Speci men Type: BLOOD SPECIMENOrdering Facility: [facility] Address: [address] [place] [address] Performed By: #### 5 7021-8 ####[facility]OSPITALPETEYPrem [id number] [place] [address] [place] Nucleated RBC (Bld) [#/Vol] 10*3/uL Normal <0.01 [facility] Comment on above: Order Comment: Speci men Type: BLOOD SPECIMENOrdering Facility: [facility] Address: [address] [place] [address] Performed By: #### 5 7021-8 ####[facility] HOSPITALPrem [id number] [place] [address] [place] Nucleated RBC/100 WBC (Bld) [Ratio] 0.0 /100 WBC Normal [facility] Comment on above: Order Comment: Speci men Type: BLOOD SPECIMENOrdering Facility: [facility] Address: [address] [place] [address] Performed By: #### 5 7021-8 ####[facility] HOSPITALPETEYLIA [id number] [place] [address] [place] Platelet mean volume (Bld) [Entitic vol] 8.7 fL Low 9.0-12.7 [facility] Comment on above: Order Comment: Speci men Type: BLOOD SPECIMENOrdering Facility: [facility] Address: [address] [place] [address] Performed By: #### 5 7021-8 ####[facility] HOSPITALIDAHO FALLSNCLIA [id number] [place] [address] [place] Platelets (Bld) [#/Vol] 269 10*3/uL Normal 150-400 [facility] Comment on above: Order Comment: Speci men Type: BLOOD SPECIMENOrdering Facility: [facility] Address: [address] [place] [address] Performed By: #### 5 7021-8 ####[facility] HOSPITALNCLIA [id number] [place] [address] [place] RBC (Bld) [#/Vol] 4.50 10*6/uL Normal 3.90-5.20 [facility] Comment on above: Order Comment: Speci men Type: BLOOD SPECIMENOrdering Facility: [facility] Address: [address] [place] [address] Performed By: #### 5 7021-8 ####[facility] [id number] [place] [address] [place] WBC (Bld) [#/Vol] 8.49 10*3/uL Normal 3.70-11.00 [facility] Comment on above: Order Comment: Speci men Type: BLOOD SPECIMENOrdering Facility: [facility] Address: [address] [place] [address] Performed By: #### 5 7021-8 ####[facility] [id number] [place] [address] [place] Examination level ultrasound on 05-04-2024 Indication dating Impression Maternal Structures: Right Ovary: Size 20 mm x 25 mm x 20 mm Left Ovary: Size 29 mm x 26 mm x 19 mm - Single, live, intrauterine . - An intrauterine gestational sac with a yolk sac and pole is present. - Speculator rump length measurement is consistent with the [...] Read By: Dayana Perry M.D. MATERNAL MEDICINE [facility] Radiology Study observation (narrative) [facility] HBV surface Ag Ser Qlon 04-15 HBV surface Ag Ql (S) Negative Normal Negative [facility] Comment on above: Order Comment: Speci men Type: BLOOD SPECIMENOrdering Facility: [facility] Address: [address] [place] [address] Performed By: #### 7 3752-8, 5195-3, 91486-5 ####[facility] LABCLIA [id number] [place] [address] [place] HCV Ab Ser Qlon 05-04-2024 HCV Ab Ql (S) Negative Normal Negative [facility] Comment on above: Order Comment: Speci men Type: BLOOD SPECIMENOrdering Facility: [facility] Address: [address] [place] [address] Result Comment: The result suggests no evidence of active infection with Hepatitis C virus. Should recent infection be suspected, repeat testing may be considered 4-6 weeks after this draw. Performed By: #### 1 6128-1 ####[facility] LABCLIA [id number] [place] [address] [place] HIV 1+2 Ab IA Qlon HIV 1 and 2 Ab IA.rapid Nom (S/P/Bld) Normal [facility] Comment on above: Order Comment: Speci men Type: BLOOD SPECIMENOrdering Facility: [facility] Address: [address] [place] [address] Result Comment: Test not indicated. Performed By: #### 7 3752-8, 5195-3, 80592-1 ####[facility] LABIA [id number] [place] [address] [place] HIV 1+2 Ab+HIV1 p24 Ag IA Ql Non-Reactive Normal Nonreactive [facility] Comment on above: Order Comment: Speci men Type: BLOOD SPECIMENOrdering Facility: [facility] Address: [address] [place] [address] Performed By: #### 7 3752-8, 5195-3, 42170-4 ####[facility] LABIA [id number] [place] [address] [place] HIV immunoassay testing algorithm interpretation (S/P/Bld) [Interp] Normal [facility] Comment on above: Order Comment: Speci men Type: BLOOD SPECIMENOrdering Facility: [facility] Address: [address] [place] [address] Result Comment: No e vidence of HIV-1 or HIV-2 infection. Should recent infection be suspected, repeat testing may be considered 2-3 weeks after this draw. [place] Rev. Code 3701.243(E): This information has been [...] diagnoses. Performed By: #### 7 3752-8, 5195-3, 70992-8 ####[facility] LABCLIA [id number] [address] [place] HbA1c (Bld)on 05-04-2024 Average glucose Estimated from glycated hemoglobin (Bld) [Mass/Vol] 97 mg/dL Normal [facility] Comment on above: Order Comment: Speci men Type: BLOOD SPECIMENOrdering Facility: [facility] Address: [address] [place] [address] Result Comment: eAG: (Estimated average glucose) is a calculated value from HgbA1c and is enrollment eligibility representative of the average blood glucose level in the last 2-3 month period. Performed By: #### 5 5454-3 ####[facility] LABCLIA [id number] [address] [facility] HbA1c (Bld) [Mass fraction] 5.0 % Normal 4.3-5.6 [facility] Comment on above: Order Comment: Speci men Type: BLOOD SPECIMENOrdering Facility: [facility] Address: [address] [place] [address] Result Comment: Amer [place] Diabetes Association guidelines indicate that patients with HgbA1c in the range 5.7-6.4% are at increased risk for development of diabetes, and intervention by lifestyle modification may be beneficial. HgbA1c greater or equal to 6.5% is considered diagnostic of diabetes. Performed By: #### 5 5454-3 ####[facility] LABCLIA [id number] [place] [address] [place] RUBELLA IGG ANTIBODYon 05-04 RUBELLA IGG AB, QUAL Positive Normal Positive [facility] Comment on above: Order Comment: Carlie mcneill Type: BLOOD SPECIMENOrdering Facility: [facility] Address: [address] [place] [address] Result Comment: The result suggests recent or past exposure to Rubella virus or history of Rubella vaccination. Positive result may also be seen due to presence of passively-transferred antibodies. Please correlate with patient's history. Performed By: #### R UBIGG ####[facility] LABCLIA [id number] [place] [address] [place] Reagin and Treponema pallidu m IgG and IgM [Interp]on 05-04-2024 T. pallidum IgG+IgM IA Ql (S) Non-Reactive Normal Nonreactive [facility] Comment on above: Order Comment: Speci osito Type: BLOOD SPECIMENOrdering Facility: [facility] Address: [address] [place] [address] Performed By: #### 7 3752-8, 5195-3, 43197-7 ####[facility] LABIA [id number] [place] [address] [place] Reagin+T pallidum IgG+IgM Se rPl-Impon 05-04-2024 Reagin and Treponema pallidum IgG and IgM [Interp] Cannot exclude recent Treponemal infection if specimen collected within 7-10 days after appearance of suspect lesions or 2-3 weeks after an exposure. Clinical correlation is required. Normal [facility] Comment on above: Order Comment: Aurorai osito Type: BLOOD SPECIMENOrdering Facility: [facility] Address: [address] [place] [address] Performed By: #### 7 3752-8, 5195-3, 71159-9 ####[facility] LABCLIA [id number] [place] [address] [place] TYPE + SCREEN PRENATALon ABO A Normal [facility] Comment on above: Order Comment: Speci men Type: BLOOD SPECIMEN [facility] Address: [address] [place] [address] Performed By: #### T SPN #### [facility] CLIA [id number] [address] [place] [address] [place] Rh Nom (Bld) Positive Normal [facility] Comment on above: Order Comment: Speci men Type: BLOOD SPECIMEN [facility] Address: [address] [place] [address] Performed By: #### T SPN #### [facility] CLIA [id number] [address] [place] [address] [place] TYPE AND SCREEN EXPIRATION 05/07/2024 23:59 Normal [facility] Comment on above: Order Comment: Speci men Type: BLOOD SPECIMEN [facility] Address: [address] [place] [address] Performed By: #### T SPN #### [facility] CLIA [id number] [address] [place] [address] [place] Bacteria Ur Culton Bacteria identified Cx Nom (U) ORGANISM ID: 1 10,000 -<50,000 CFU/ml Normal urogenital leandro Normal [facility] Comment on above: Performed By: #### 6 30-4 ####[facility] LABCLIA [id number] [address] [place] C. trachomatis+N. gonorrhoea e DNA LUPIS+probe Ql (Unsp spec)on 04-19-2024 C. trachomatis rRNA LUPIS+probe Ql (Unsp spec) Not detected Normal Not detected [facility] Comment on above: Order Comment: Speci men Type: SWABOrdering Facility: [facility] Address: [address] [place] [address] Performed By: #### 3 6902-5 ####[facility] LABCLIA [id number] [address] [place] N. gonorrhoeae rRNA LUPIS+probe Ql (Unsp spec) Not detected Normal Not detected [facility] Comment on above: Order Comment: Speci men Type: SWABOrdering Facility: [facility] Address: [address] [place] [address] Performed By: #### 3 6902-5 ####[facility] LABCLIA [id number] [address] [place] POC [employer] DEVELOPER WITH SECURITY CLEARANCE ULTRASOUNDon 04-19-19 Indication Confirmation of intrauterine . [...] Read By: Mai Blanton CNP MATERNAL MEDICINE [facility] Radiology Study observation (narrative) [facility] Urinalysis complete panel (U )on 03-10-2023 Bacteria LM.HPF (Urine sed) [#/Area] Negative Negative /HPF [facility] Bilirubin Ql (U) Negative Negative [facility] Clarity (Unsp spec) Clear Clear [facility] Color (U) Dark Yellow Abnormal Yellow [facility] Epithelial cells LM.HPF (Urine sed) [#/Area] None Seen [facility] Glucose Test strip (U) [Mass/Vol] Negative Negative [facility] Hemoglobin Ql (U) 1+ Abnormal Negative [facility] Hyaline casts (Urine sed) [#/Area] 0 /[LPF] 0 /LPF [facility] Ketones Ql (U) Negative Negative [facility] Leukocyte esterase Test strip Ql (U) 3+ Abnormal Negative [facility] Nitrite Ql (U) Negative Negative [facility] pH (U) 6.5 [pH] <8.5 [facility] Protein (U) [Mass/Vol] Negative Negative [facility] RBC LM.HPF (Urine sed) [#/Area] 6-10 /HPF Abnormal 0-2 /HPF [facility] Specific gravity (U) [Rel density] 1.011 1.005 - 1.030 [facility] Urobilinogen Ql (U) 1.0 EU/dL 0.2-1.0 EU/dL [facility] WBC LM.HPF (Urine sed) [#/Area] 11-20 /HPF Abnormal 0-5 /HPF [facility] Absolute lymphocyte countOrd ered By: Dr. Zelaya on 09-16-2022 Lymphocytes Auto (Unsp spec) [#/Vol] 1.84 10*3/uL 0.83-4.51 [facility] Basophil percentageOrdered B y: Dr. Zelaya on 09-16-2022 Basophils/100 WBC (Bld) 0.3 % 0-1 [facility] Bilirubin [Mass/Vol] 0.20 mg/dL 0.20-1.00 [facility] Comment on above: For patients on eltr ombopag therapy, use of Dimension Romeo TBIL is not recommended. Chloride [Moles/Vol] 106 mmol/L 98-107 [facility] Eosinophils/100 WBC (Bld) 0.5 % 0-5 [facility] Glucose [Mass/Vol] 92 mg/dL 74-106 [facility] Neutrophils (Bld) [#/Vol] 10.9 10*3/uL 2.0-7.7 [facility] Neutrophils/100 WBC (Bld) 81.2 % 47-70 [facility] Potassium [Moles/Vol] 4.1 mmol/L 3.5-5.1 [facility] Protein [Mass/Vol] 8.2 g/dL 6.4-8.2 [facility] Sodium [Moles/Vol] 136 mmol/L 136-145 [facility] WBC (Bld) [#/Vol] 13.4 10*3/uL 4.4-11.0 [facility] Blood erythrocytes count (nu mber/volume)Ordered By: Dr. Zelaya on 09-16-2022 RBC (Bld) [#/Vol] 4.61 10*6/uL 4.2-5.4 [facility] Blood hemoglobin measurement (mass/volume)Ordered By: Dr. Zelaya on 09-16-2022 Hemoglobin (Bld) [Mass/Vol] 12.6 g/dL 12.0-15.0 [facility] Blood lymphocytes/100 leukoc ytesOrdered By: Dr. Zelaya on 09-16-2022 Lymphocytes/100 WBC (Bld) 13.7 % 19-41 [facility] Blood monocytes/100 leukocyt esOrdered By: Dr. Zelaya on 09-16-2022 Monocytes/100 WBC (Bld) 4.0 % 0-10 [facility] Blood platelet mean volumeOr dered By: Dr. Zelaya on 09-16-2022 Platelet mean volume (Bld) [Entitic vol] 8.5 fL 6.2-12.0 [facility] Determination of erythrocyte mean corpuscular volume (MCV)Ordered By: Dr. Zelaya on 09-16-2022 MCV (RBC) [Entitic vol] 83.7 fL 81-99 [facility] Hematocrit Auto (Bld) [Volum e fraction]Ordered By: Dr. Zelaya on 09-16-2022 Hematocrit (Bld) [Volume fraction] 38.6 % 37-47 [facility] Laboratory - Chemistry and C hemistry - challengeOrdered By: Dr. Zelaya on 09-16-2022 ALP [Catalytic activity/Vol] 78 U/L 45-117 [facility] ALT [Catalytic activity/Vol] 19 U/L 13-56 [facility] CO2 [Moles/Vol] 23.0 mmol/L 21.0-32.0 [facility] Globulin (S) [Mass/Vol] 4.6 g/dL 2.2-4.2 [facility] Urea nitrogen/Creatinine [Mass ratio] 14.6 mg/mg 10-20 [facility] Laboratory - Hematology and Cell countsOrdered By: Dr. Zelaya on 09-16-2022 Erythrocyte distribution width (RBC) [Entitic vol] 41.5 fL 35.1-43.9 [facility] Erythrocyte distribution width (RBC) [Ratio] 13.5 % 11.6-14.6 [facility] Immature granulocytes/100 WBC (Bld) 0.300 % 0.0-0.9 [facility] Comment on above: IG% - Immature Granu locytes (promyelocytes, myelocytes and metamyelocytes) > 1% indicates that a LEFT SHIFT is Present. MCH (RBC) [Entitic mass] 27.3 pg 27.0-32.0 [facility] Nucleated RBC/100 WBC (Bld) [Ratio] 0 % 0-5 [facility] MCHC Auto (RBC) [Mass/Vol]Or dered By: Dr. Zelaya on 09-16-2022 MCHC (RBC) [Mass/Vol] 32.6 g/dL 32-36 [facility] No Panel InformationOrdered By: Dr. Zelaya on 09-16-2022 D-Dimer Quantitative (PE/DVT) 0.29 FEU/ug/m 0.27-0.49 [facility] Comment on above: NORMAL D-Dimer level (<0.50) indicates no DVT or PE. Estimated Creatinine Clearance Calc 113.25 ml/min [facility] Estimated GFR (MDRD) Amer 129 mL/min >60 [facility] Comment on above: GFR Calc Estimated GFR (MDRD) Non-Af Amer 107 mL/min >60 [facility] Comment on above: Non- GFR Calc Troponin I High Sensitivity < 3 pg/mL 3.0-54.0 [facility] Comment on above: Please Note: New Kesha t Units and Gender Specific Reference Ranges. For more information see Policy Stat Procedure Romeo High Sensitivity Troponin (TNIH) and attachments. Platelets bldOrdered By: Dr. Zelaya on 09-16-2022 Platelets (Bld) [#/Vol] 367 10*3/uL 150-450 [facility] Serum or plasma albumin magda urement (mass/volume)Ordered By: Dr. Zelaya on 09-16-2022 Albumin [Mass/Vol] 3.6 g/dL 3.2-5.0 [facility] Serum or plasma albumin/glob ulin mass ratioOrdered By: Dr. Zelaya on 09-16-2022 Albumin/Globulin [Mass ratio] 0.8 {ratio} 0.9-2.4 [facility] Serum or plasma calcium magda urement (mass/volume)Ordered By: Dr. Zelaya on 09-16-2022 Calcium [Mass/Vol] 9.4 mg/dL 8.5-10.1 [facility] Serum or plasma creatinine m easurement (mass/volume)Ordered By: Dr. Zelaya on 09-16-2022 Creatinine [Mass/Vol] 0.68 mg/dL 0.55-1.02 [facility] Comment on above: The validity of the calculated GFR & GFRAA in patients over 70 years has not been determined. Clinical correlation is essential. Serum or plasma urea nitroge n measurement (mass/volume)Ordered By: Dr. Zelaya on 09-16-2022 Urea nitrogen [Mass/Vol] 10 mg/dL 7-18 [facility] Thin prep Papanicolaou smear with manual screeningOrdered By: Dr. Zelaya on 09-16-2022 Thin prep Papanicolaou smear with manual screening 11 U/L 15-37 [facility] Thin prep Papanicolaou smear with manual screening 7 5-15 [facility] XR CHEST 2V FRONTAL/LATon [facility] XR Chest PA and Lateralon IMPRESSION: No acute radiographic abnormality. Threat Analyst[facility] Transcribe Date/Time: Sep 16 2022 9:37A Dictated by : AMARIS DHILLON MD This examination was interpreted and the report reviewed and electronically signed by: AMARIS DHILLON MD on Sep 16 2022 9:37AM [facility] DIVISION OF RADIOLOGY * * *Final Report* [...] Unremarkable. DIVISION OF RADIOLOGY Provider, Lian Jenny [facility] - 09/16/2022 * * *Final Report* * [...] Unremarkable. IMPRESSION IMPRESSION: No acute radiographic abnormality. Threat Analyst: [facility] Transcribe Date/Time: Sep 16 2022 9:37A Dictated by : AMARIS DHILLON MD This examination was interpreted and the report reviewed and electronically signed by: AMARIS DHILLON MD on Sep 16 2022 9:37AM EST [facility] Radiology Study observation (narrative) [facility] XR Chest PA and LateralOrder ed By: [facility] Provider on 09-16-2022 [facility] Glucose Glucometer (BldC) [M ass/Vol]on 01-05-2022 Glucose [Mass/Vol] 99 mg/dL 74-106 [facility] Work Phone: Comment on above: MANAGEMENT OF PATIEN T CARE PER NURSING PROTOCOL Absolute lymphocyte counton 01-04-2022 Lymphocytes Auto (Unsp spec) [#/Vol] 1.74 10*3/uL 0.83-4.51 [facility] Work Phone: Basophil percentageon 2021 Basophils/100 WBC (Bld) 0.2 % 0-1 [facility] Work Phone: [phone] Eosinophils/100 WBC (Bld) 1.5 % 0-5 [facility] Work Phone: Neutrophils (Bld) [#/Vol] 8.3 10*3/uL 2.0-7.7 [facility] Work Phone: [phone] Neutrophils/100 WBC (Bld) 75.4 % 47-70 [facility] Work Phone: [phone] WBC (Bld) [#/Vol] 11.0 10*3/uL 4.4-11.0 [facility] Work Phone: [phone] Blood erythrocytes count (nu mber/volume)on 01-04-2022 RBC (Bld) [#/Vol] 4.34 10*6/uL 4.2-5.4 [facility] Work Phone: [phone] Blood hemoglobin measurement (mass/volume)on 01-04-2022 Hemoglobin (Bld) [Mass/Vol] 12.0 g/dL 12.0-15.0 [facility] Work Phone: [phone] Blood lymphocytes/100 leukoc yteson 01-04-2022 Lymphocytes/100 WBC (Bld) 15.9 % 19-41 [facility] Work Phone: Blood monocytes/100 leukocyt eson 01-04-2022 Monocytes/100 WBC (Bld) 6.5 % 0-10 [facility] Work Phone: [phone] Blood platelet mean volumeon 01-04-2022 Platelet mean volume (Bld) [Entitic vol] 10.3 fL 6.2-12.0 [facility] Work Phone: Determination of erythrocyte mean corpuscular volume (MCV)on 01-04-2022 MCV (RBC) [Entitic vol] 83.6 fL 81-99 [facility] Work Phone: Hematocrit Auto (Bld) [Volum e fraction]on 01-04-2022 Hematocrit (Bld) [Volume fraction] 36.3 % 37-47 [facility] Work Phone: Laboratory - Hematology and Cell countson 01-04-2022 Erythrocyte distribution width (RBC) [Entitic vol] 47.8 fL 35.1-43.9 [facility] Work Phone: Erythrocyte distribution width (RBC) [Ratio] 15.9 % 11.6-14.6 [facility] Work Phone: Immature granulocytes/100 WBC (Bld) 0.500 % 0.0-0.9 [facility] Work Phone: Comment on above: IG% - Immature Granu locytes (promyelocytes, myelocytes and metamyelocytes) > 1% indicates that a LEFT SHIFT is Present. MCH (RBC) [Entitic mass] 27.6 pg 27.0-32.0 [facility] Work Phone: [phone] Nucleated RBC/100 WBC (Bld) [Ratio] 0 % 0-5 [facility] Work Phone: MCHC Auto (RBC) [Mass/Vol]on 01-04-2022 MCHC (RBC) [Mass/Vol] 33.1 g/dL 32-36 [facility] Work Phone: Platelets bldon 01-04-2022 Platelets (Bld) [#/Vol] 290 10*3/uL 150-450 [facility] Work Phone: URINE OB DIP B/Oon 2 Glucose Ql (U) Negative Neg mg/dL [facility] Protein.monoclonal (U) [Mass/Vol] Negative Neg mg/dL [facility] URINE OB DIP B/Oon 2 Glucose Ql (U) Negative Neg mg/dL [facility] Protein.monoclonal (U) [Mass/Vol] Negative Neg mg/dL [facility] URINE OB DIP B/Oon 2 Glucose Ql (U) Negative Neg mg/dL [facility] Protein.monoclonal (U) [Mass/Vol] Negative Neg mg/dL [facility] Absolute lymphocyte counton 12-06-2021 Lymphocytes Auto (Unsp spec) [#/Vol] 1.96 10*3/uL 0.83-4.51 [facility] Work Phone: Basophil percentageon 2021 Basophils/100 WBC (Bld) 0.2 % 0-1 [facility] Work Phone: [phone] Eosinophils/100 WBC (Bld) 2.1 % 0-5 [facility] Work Phone: [phone] Neutrophils (Bld) [#/Vol] 6.1 10*3/uL 2.0-7.7 [facility] Work Phone: [phone] Neutrophils/100 WBC (Bld) 68.3 % 47-70 [facility] Work Phone: [phone] WBC (Bld) [#/Vol] 8.9 10*3/uL 4.4-11.0 [facility] Work Phone: [phone] Blood erythrocytes count (nu mber/volume)on 12-06-2021 RBC (Bld) [#/Vol] 4.36 10*6/uL 4.2-5.4 [facility] Work Phone: [phone] Blood hemoglobin measurement (mass/volume)on 12-06-2021 Hemoglobin (Bld) [Mass/Vol] 11.8 g/dL 12.0-15.0 [facility] Work Phone: [phone] Blood lymphocytes/100 leukoc yteson 12-06-2021 Lymphocytes/100 WBC (Bld) 22.1 % 19-41 [facility] Work Phone: [phone] Blood monocytes/100 leukocyt eson 12-06-2021 Monocytes/100 WBC (Bld) 7.1 % 0-10 [facility] Work Phone: [phone] Blood platelet mean volumeon 12-06-2021 Platelet mean volume (Bld) [Entitic vol] 9.6 fL 6.2-12.0 [facility] Work Phone: Determination of erythrocyte mean corpuscular volume (MCV)on 12-06-2021 MCV (RBC) [Entitic vol] 82.8 fL 81-99 [facility] Work Phone: Hematocrit Auto (Bld) [Volum e fraction]on 12-06-2021 Hematocrit (Bld) [Volume fraction] 36.1 % 37-47 [facility] Work Phone: [phone] INR in Blood by Coagulation assayon 12-06-2021 INR Coag (Bld) [Relative time] 1.0 {INR} [facility] Work Phone: [phone] Laboratory - Coagulationon 0 12-06-2021 aPTT Coag (Bld) [Time] 34.0 s 24.1-36.2 [facility] Work Phone: [phone] PT Coag (PPP) [Time] 13.3 s 11.7-14.9 [facility] Work Phone: [phone] Laboratory - Hematology and Cell countson 12-06-2021 Erythrocyte distribution width (RBC) [Entitic vol] 48.2 fL 35.1-43.9 [facility] [facility] [place] Work Phone: [phone] Erythrocyte distribution width (RBC) [Ratio] 15.9 % 11.6-14.6 [facility] [place] Work Phone: [phone] Immature granulocytes/100 WBC (Bld) 0.200 % 0.0-0.9 [facility] [place] Work Phone: [phone] Comment on above: IG% - Immature Granu locytes (promyelocytes, myelocytes and metamyelocytes) > 1% indicates that a LEFT SHIFT is Present. MCH (RBC) [Entitic mass] 27.1 pg 27.0-32.0 [facility] [place] Work Phone: [phone] Nucleated RBC/100 WBC (Bld) [Ratio] 0 % 0-5 [facility] [place] Work Phone: [phone] MCHC Auto (RBC) [Mass/Vol]on 12-06-2021 MCHC (RBC) [Mass/Vol] 32.7 g/dL 32-36 [facility] Work Phone: [phone] Panel Informationon 12-06 Fibrinogen 471 mg/dl 203-444 [facility] [place] Work Phone: [phone] Platelets bldon 12-06-2021 Platelets (Bld) [#/Vol] 325 10*3/uL 150-450 [facility] [place] Work Phone: OBSTETRIC ULTRASOUND WHIon 0 12-04-2021 [facility] URINE OB DIP B/Oon 2 Glucose Ql (U) Negative Neg mg/dL [facility] Protein.monoclonal (U) [Mass/Vol] Negative Neg mg/dL [facility] URINE OB DIP B/Oon 2 Glucose Ql (U) Negative Neg mg/dL [facility] Protein.monoclonal (U) [Mass/Vol] Negative Neg mg/dL [facility] URINE OB DIP B/Oon 2 Glucose Ql (U) Negative Neg mg/dL [facility] Protein.monoclonal (U) [Mass/Vol] Negative Neg mg/dL [facility] URINE OB DIP B/Oon 2 Glucose Ql (U) Negative Neg mg/dL [facility] Protein.monoclonal (U) [Mass/Vol] Negative Neg mg/dL [facility] URINE OB DIP B/Oon 2 Glucose Ql (U) Negative Neg mg/dL [facility] Protein.monoclonal (U) [Mass/Vol] Negative Neg mg/dL [facility] OBSTETRIC ULTRASOUND WHIon 0 08-13-2021 [facility] URINE OB DIP B/Oon 2 Glucose Ql (U) Negative Neg mg/dL [facility] Protein.monoclonal (U) [Mass/Vol] Negative Neg mg/dL [facility] URINE OB DIP B/Oon 2 Glucose Ql (U) Negative Neg mg/dL [facility] Protein.monoclonal (U) [Mass/Vol] Negative Neg mg/dL [facility] Vital Signs Date Time Vital Sign Value Performing Clinician Facility 11-24-2024 08:58-0400 Body mass index (BMI) [Ratio] 32.95 kg/m2 Kasey Yang MD Work Phone: [facility] 11-24-2024 08:58-0400 Body weight 89.81 kg Kasey Yang MD Work Phone: [facility] 11-24-2024 08:58-0400 Diastolic blood pressure 68 mm[Hg] Kasey Yang MD Work Phone: [facility] 11-24-2024 08:58-0400 Systolic blood pressure 124 mm[Hg] Kasey Yang MD Work Phone: [facility] 11-15-2024 14:53-0400 Body temperature 97.8 [degF] Dr. Kathy Vyas MD Work Phone: [facility] [place] 11-15-2024 14:53-0400 Diastolic blood pressure 64 mm[Hg] Dr. Kathy Vyas MD Work Phone: [facility] [place] 11-15-2024 14:53-0400 Heart rate 90 /min Dr. Kathy Vyas MD Work Phone: [facility] [place] 11-15-2024 14:53-0400 Respiratory rate 16 /min Dr. Kathy Vyas MD Work Phone: [facility] [place] 11-15-2024 14:53-0400 SaO2% (BldA) [Mass fraction] 99 % Dr. Kathy Vyas MD Work Phone: [facility] [place] 11-15-2024 14:53-0400 Systolic blood pressure 135 mm[Hg] Dr. Kathy Vyas MD Work Phone: [facility] [place] 11-15-2024 10:46-0400 Body height 167.[address] Kathy Vyas MD Work Phone: [facility] [place] 11-15-2024 10:46-0400 Body mass index (BMI) [Ratio] 31.5 kg/m2 Dr. Kathy Vyas MD Work Phone: [facility] [place] 11-15-2024 10:46-0400 Body weight 88.[address] Kathy Vyas MD Work Phone: [facility] [place] 11-15-2024 10:05-0400 Body mass index (BMI) [Ratio] 32.31 kg/m2 Dante Waite MD Work Phone: [facility] 11-15-2024 10:05-0400 Body weight 88.18 kg Dante Waite MD Work Phone: [facility] 11-15-2024 10:05-0400 Diastolic blood pressure 80 mm[Hg] Dante Waite MD Work Phone: [facility] 11-15-2024 10:05-0400 Systolic blood pressure 122 mm[Hg] Dante Waite MD Work Phone: [facility] 11-12-2024 10:49-0400 Body mass index (BMI) [Ratio] 31.75 kg/m2 Dante Waite MD Work Phone: [facility] 11-12-2024 10:49-0400 Body weight 86.64 kg Dante Waite MD Work Phone: [facility] 11-12-2024 10:49-0400 Diastolic blood pressure 78 mm[Hg] Dante Waite MD Work Phone: [facility] 11-12-2024 10:49-0400 Systolic blood pressure 124 mm[Hg] Dante Waite MD Work Phone: [facility] 11-10-2024 10:41-0400 Body mass index (BMI) [Ratio] 31.91 kg/m2 Dante Waite MD Work Phone: [facility] 11-10-2024 10:41-0400 Body weight 87.09 kg Dante Waite MD Work Phone: [facility] 11-10-2024 10:41-0400 Diastolic blood pressure 78 mm[Hg] Dante Waite MD Work Phone: [facility] 11-10-2024 10:41-0400 Systolic blood pressure 116 mm[Hg] Dante Waite MD Work Phone: [facility] 10-27-2024 08:42-0400 Body mass index (BMI) [Ratio] 31.41 kg/m2 Dante Waite MD Work Phone: [facility] 10-27-2024 08:42-0400 Body weight 85.73 kg Dante Waite MD Work Phone: [facility] 10-27-2024 08:42-0400 Diastolic blood pressure 72 mm[Hg] Dante Waite MD Work Phone: [facility] 10-27-2024 08:42-0400 Systolic blood pressure 114 mm[Hg] Dante Waite MD Work Phone: [facility] 10-13-2024 08:28-0400 Body mass index (BMI) [Ratio] 31.08 kg/m2 Dante Waite MD Work Phone: [facility] 10-13-2024 08:28-0400 Body weight 84.82 kg Dante Waite MD Work Phone: [facility] 10-13-2024 08:28-0400 Diastolic blood pressure 72 mm[Hg] Dante Waite MD Work Phone: [facility] 10-13-2024 08:28-0400 Systolic blood pressure 110 mm[Hg] Dante Waite MD Work Phone: [facility] 09-27-2024 08:44-0400 Body mass index (BMI) [Ratio] 30.91 kg/m2 Tara Parks APRN.CNM Work Phone: [facility] 09-27-2024 08:44-0400 Body temperature 98.01 [degF] Tara Parks APRN.CNM Work Phone: [facility] 09-27-2024 08:44-0400 Body weight 84.37 kg Tara Parks APRN.CNRenato Work Phone: [facility] 09-27-2024 08:44-0400 Diastolic blood pressure 73 mm[Hg] Tara Parks APRN.CNM Work Phone: [facility] 09-27-2024 08:44-0400 Heart rate 103 /min Tara Parks APRN.CNM Work Phone: [facility] 09-27-2024 08:44-0400 Systolic blood pressure 115 mm[Hg] Tara Parks APRN.CNM Work Phone: [facility] 09-15-2024 08:23-0400 Body mass index (BMI) [Ratio] 30.75 kg/m2 Dante Waite MD Work Phone: [facility] 09-15-2024 08:23-0400 Body weight 83.92 kg Dante Waite MD Work Phone: [facility] 09-15-2024 08:23-0400 Diastolic blood pressure 68 mm[Hg] Dante Waite MD Work Phone: [facility] 09-15-2024 08:23-0400 Systolic blood pressure 110 mm[Hg] Dante Waite MD Work Phone: [facility] 08-18-2024 08:21-0400 Body mass index (BMI) [Ratio] 29.75 kg/m2 Dante Waite MD Work Phone: [facility] 08-18-2024 08:21-0400 Body weight 81.19 kg Dante Waite MD Work Phone: [facility] 08-18-2024 08:21-0400 Diastolic blood pressure 68 mm[Hg] Dante Waite MD Work Phone: [facility] 08-18-2024 08:21-0400 Systolic blood pressure 106 mm[Hg] Dante Waite MD Work Phone: [facility] 07-21-2024 15:55-0400 Body mass index (BMI) [Ratio] 29.59 kg/m2 Macarena Perez APRN.[employer] Work Phone: [facility] 07-21-2024 15:55-0400 Body weight 80.74 kg Macarena Perez APRN.[employer] Work Phone: [facility] 07-21-2024 15:55-0400 Diastolic blood pressure 60 mm[Hg] Macarena Perez APRN.[employer] Work Phone: [facility] 07-21-2024 15:55-0400 Systolic blood pressure 110 mm[Hg] Macarena Perez ROGERS Work Phone: [facility] 06-23-2024 09:59-0400 Body mass index (BMI) [Ratio] 28.75 kg/m2 Dante Waite MD Work Phone: [facility] 06-23-2024 09:59-0400 Body weight 78.47 kg Dante Waite MD Work Phone: [facility] 06-23-2024 09:59-0400 Diastolic blood pressure 60 mm[Hg] Dante Waite MD Work Phone: [facility] 06-23-2024 09:59-0400 Systolic blood pressure 122 mm[Hg] Dante Waite MD Work Phone: [facility] 06-02-2024 11:23-0500 Body mass index (BMI) [Ratio] 28.42 kg/m2 Dante Waite MD Work Phone: [facility] 06-02-2024 11:23-0500 Body weight 77.56 kg Dante Waite MD Work Phone: [facility] 06-02-2024 11:23-0500 Diastolic blood pressure 68 mm[Hg] Dante Waite MD Work Phone: [facility] 06-02-2024 11:23-0500 Systolic blood pressure 122 mm[Hg] Dante Waite MD Work Phone: [facility] 05-18-2024 08:26-0500 Body mass index (BMI) [Ratio] 27.59 kg/m2 Dante Waite MD Work Phone: [facility] 05-18-2024 08:26-0500 Body weight 75.3 kg Dante Waite MD Work Phone: [facility] 05-18-2024 08:26-0500 Diastolic blood pressure 68 mm[Hg] Dante Waite MD Work Phone: [facility] 05-18-2024 08:26-0500 Systolic blood pressure 128 mm[Hg] Dante Waite MD Work Phone: [facility] 05-04-2024 08:48-0500 Body mass index (BMI) [Ratio] 27.92 kg/m2 aDnte Waite MD Work Phone: [facility] 05-04-2024 08:48-0500 Body weight 76.2 kg Dante Waite MD Work Phone: [facility] 05-04-2024 08:48-0500 Diastolic blood pressure 64 mm[Hg] Dante Waite MD Work Phone: [facility] 05-04-2024 08:48-0500 Systolic blood pressure 110 mm[Hg] Dante Waite MD Work Phone: [facility] 04-19-2024 08:19-0500 Body mass index (BMI) [Ratio] 27.92 kg/m2 Mai [place] [employer] Work Phone: [facility] 04-19-2024 08:19-0500 Body weight 76.2 kg Mai Franny [employer] Work Phone: [facility] 04-19-2024 08:19-0500 Diastolic blood pressure 66 mm[Hg] Mai [place] [employer] Work Phone: [facility] 04-19-2024 08:19-0500 Systolic blood pressure 122 mm[Hg] Mai Franny [employer] Work Phone: [facility] 10-10-2023 13:44-0400 Body height 165.2 cm Dante Waite MD Work Phone: [facility] 10-10-2023 13:44-0400 Body mass index (BMI) [Ratio] 27.46 kg/m2 Dante Waite MD Work Phone: [facility] 10-10-2023 13:44-0400 Body weight 74.93 kg Dante Waite MD Work Phone: [facility] 10-10-2023 13:44-0400 Diastolic blood pressure 68 mm[Hg] Dante Waite MD Work Phone: [facility] 10-10-2023 13:44-0400 Systolic blood pressure 108 mm[Hg] Dante Waite MD Work Phone: [facility] 09-16-2022 10:55-0400 Diastolic blood pressure 69 mm[Hg] [facility] [place] 09-16-2022 10:55-0400 Heart rate 72 /min [facility] 09-16-2022 10:55-0400 Respiratory rate 15 /min [facility] 09-16-2022 10:55-0400 SaO2% (BldA) [Mass fraction] 98 % [facility] [place] 09-16-2022 10:55-0400 Systolic blood pressure 127 mm[Hg] [facility] [place] 09-16-2022 09:55-0400 Body height 167.64 cm [facility] 09-16-2022 09:55-0400 Body mass index (BMI) [Ratio] 27.4 kg/m2 [facility] [place] 09-16-2022 09:55-0400 Body temperature 97.8 [degF] [facility] 09-16-2022 09:55-0400 Body weight 77.11 kg [facility] 09-16-2022 08:55-0400 Body temperature 99.19 [degF] Best Lane MD Work Phone: [facility] 09-16-2022 08:55-0400 Body weight 77.[address] MD Work Phone: [facility] 09-16-2022 08:55-0400 Diastolic blood pressure 80 mm[Hg] Best Lane MD Work Phone: [facility] 09-16-2022 08:55-0400 Heart rate 102 /min Best [address] MD Work Phone: [facility] 09-16-2022 08:55-0400 Respiratory rate 21 /min Best [address] MD Work Phone: [facility] 09-16-2022 08:55-0400 SaO2% (BldA) [Mass fraction] 99 % Best [address] MD Work Phone: [facility] 09-16-2022 08:55-0400 Systolic blood pressure 110 mm[Hg] Best Lane MD Work Phone: [facility] 03-05-2022 11:36-0500 Body weight 76.2 kg Alban Hooker MD Work Phone: [facility] 03-05-2022 11:36-0500 Diastolic blood pressure 70 mm[Hg] Alban Hooker MD Work Phone: [facility] 03-05-2022 11:36-0500 Systolic blood pressure 112 mm[Hg] Alban Hooker MD Work Phone: [facility] 02-14-2022 10:36-0400 Body weight 74.84 kg Kasey Yang MD Work Phone: [facility] 02-14-2022 10:36-0400 Diastolic blood pressure 70 mm[Hg] Kasey Yang MD Work Phone: [facility] 02-14-2022 10:36-0400 Systolic blood pressure 118 mm[Hg] Kasey Yang MD Work Phone: [facility] 01-17-2022 10:54-0400 Body weight 74.84 kg Dante Waite MD Work Phone: [facility] 01-17-2022 10:54-0400 Diastolic blood pressure 72 mm[Hg] Dante Waite MD Work Phone: [facility] 01-17-2022 10:54-0400 Systolic blood pressure 112 mm[Hg] Dante Waite MD Work Phone: [facility] 01-05-2022 16:14-0400 Body temperature 98.9 [degF] [facility] Work Phone: 01-05-2022 16:14-0400 Diastolic blood pressure 75 mm[Hg] [facility] [place] Work Phone: 01-05-2022 16:14-0400 Heart rate 93 /min [facility] Work Phone: 01-05-2022 16:14-0400 Respiratory rate 14 /min [facility] Work Phone: 01-05-2022 16:14-0400 SaO2% (BldA) [Mass fraction] 98 % [facility] [place] Work Phone: 01-05-2022 16:14-0400 Systolic blood pressure 114 mm[Hg] [facility] [place] Work Phone: 01-04-2022 07:15-0400 Body height 167.64 cm [facility] Work Phone: 01-04-2022 07:15-0400 Body mass index (BMI) [Ratio] 28.7 kg/m2 [facility] [place] Work Phone: 01-04-2022 07:15-0400 Body weight 80.73 kg [facility] Work Phone: 01-01-2022 11:25-0400 Body weight 81.65 kg Dante Waite MD Work Phone: [facility] 01-01-2022 11:25-0400 Diastolic blood pressure 86 mm[Hg] Dante Waite MD Work Phone: [facility] 01-01-2022 11:25-0400 Systolic blood pressure 136 mm[Hg] Dante Waite MD Work Phone: [facility] 12-25-2021 09:18-0400 Body weight 78.93 kg Kasey Yang MD Work Phone: [facility] 12-25-2021 09:18-0400 Diastolic blood pressure 68 mm[Hg] Kasey Yang MD Work Phone: [facility] 12-25-2021 09:18-0400 Systolic blood pressure 110 mm[Hg] Kasey Yang MD Work Phone: [facility] 12-19-2021 15:10-0400 Body weight 79.83 kg Dante Waite MD Work Phone: [facility] 12-19-2021 15:10-0400 Diastolic blood pressure 72 mm[Hg] Dante Waite MD Work Phone: [facility] 12-19-2021 15:10-0400 Systolic blood pressure 104 mm[Hg] Dante Waite MD Work Phone: [facility] 12-13-2021 11:44-0400 Body weight 78.93 kg Dante Waite MD Work Phone: [facility] 12-13-2021 11:44-0400 Diastolic blood pressure 68 mm[Hg] Dante Waite MD Work Phone: [facility] 12-13-2021 11:44-0400 Systolic blood pressure 108 mm[Hg] Dante Waite MD Work Phone: [facility] 12-06-2021 17:45-0400 Heart rate 91 /min [facility] Work Phone: 12-06-2021 17:45-0400 SaO2% (BldA) [Mass fraction] 98 % [facility] [place] Work Phone: 12-06-2021 17:44-0400 Diastolic blood pressure 85 mm[Hg] [facility] [place] Work Phone: 12-06-2021 17:44-0400 Systolic blood pressure 139 mm[Hg] [facility] [place] Work Phone: 12-06-2021 17:42-0400 Body height 167.64 cm [facility] Work Phone: 12-06-2021 17:42-0400 Body mass index (BMI) [Ratio] 28.3 kg/m2 [facility] [place] Work Phone: 12-06-2021 17:42-0400 Body weight 79.7 kg [facility] Work Phone: 12-04-2021 09:46-0400 Body weight 78.93 kg Dante Waite MD Work Phone: [facility] 12-04-2021 09:46-0400 Diastolic blood pressure 74 mm[Hg] Dante Waite MD Work Phone: [facility] 12-04-2021 09:46-0400 Systolic blood pressure 102 mm[Hg] Dante Waite MD Work Phone: [facility] 11-20-2021 09:52-0400 Body weight 78.02 kg Dante Waite MD Work Phone: [facility] 11-20-2021 09:52-0400 Diastolic blood pressure 64 mm[Hg] Dante Waite MD Work Phone: [facility] 11-20-2021 09:52-0400 Systolic blood pressure 102 mm[Hg] Dante Waite MD Work Phone: [facility] 11-07-2021 13:25-0400 Body weight 79.38 kg Dante Waite MD Work Phone: [facility] 11-07-2021 13:25-0400 Diastolic blood pressure 70 mm[Hg] Dante Waite MD Work Phone: [facility] 11-07-2021 13:25-0400 Systolic blood pressure 124 mm[Hg] Dante Waite MD Work Phone: [facility] 10-09-2021 10:01-0400 Body weight 78.47 kg Dante Waite MD Work Phone: [facility] 10-09-2021 10:01-0400 Diastolic blood pressure 62 mm[Hg] Dante Waite MD Work Phone: [facility] 10-09-2021 10:01-0400 Systolic blood pressure 118 mm[Hg] Dante Waite MD Work Phone: [facility] 09-11-2021 09:38-0400 Body weight 75.75 kg Dante Waite MD Work Phone: [facility] 09-11-2021 09:38-0400 Diastolic blood pressure 68 mm[Hg] Dante Waite MD Work Phone: [facility] 09-11-2021 09:38-0400 Systolic blood pressure 114 mm[Hg] Dante Waite MD Work Phone: [facility] 08-13-2021 09:43-0400 Body weight 72.58 kg Dante Waite MD Work Phone: [facility] 08-13-2021 09:43-0400 Diastolic blood pressure 66 mm[Hg] Dante Waite MD Work Phone: [facility] 08-13-2021 09:43-0400 Systolic blood pressure 108 mm[Hg] Dante Waite MD Work Phone: [facility] 07-20-2021 09:50-0400 Body weight 71.22 kg Dante Waite MD Work Phone: [facility] 07-20-2021 09:50-0400 Diastolic blood pressure 66 mm[Hg] Dante Waite MD Work Phone: [facility] 07-20-2021 09:50-0400 Systolic blood pressure 118 mm[Hg] Dante Waite MD Work Phone: [facility] Encounters Encounter Date Encounter Type Care Provider Facility Start: 11-30-2024 ambulatory Dante Wylie y:[facility] [place] Start: 11-24-2024 End: 11-24-2024 Patient encounter procedure Kasey Yang MD Work Phone: OB/Gynecology Comment on above: Supervision of high risk in third trimester (HCC) (Primary Dx); Hx of preeclampsia, prior , currently (HCC); Breech presentation with problem, single or unspecified fetus (HCC); Anemia during in third trimester (HCC); 38 weeks gestation of (HCC) Start: 11-24-2024 End: 11-24-2024 ambulatory KASEY YANG Facility:[facility] Start: 11-23-2024 End: 11-23-2024 [facility] Start: 11-23-2024 End: 11-23-2024 Patient encounter procedure [facility] Comment on above: Population Health Na vigation Outreach ( to PCP/OB/) Start: 11-17-2024 End: 11-17-2024 ambulatory KATHY VYAS Facility:[facility] Start: 11-15-2024 End: 11-15-2024 Patient encounter procedure Tara Parks JUMA -[facility] Work Phone: Comment on above: 37 weeks gestation o f (HCC) (Primary Dx); Supervision of high risk in third trimester (HCC) Start: 11-15-2024 End: 11-15-[address] aKthy Vyas MD Work Phone: -[facility] Start: 11-12-2024 End: 11-12-2024 Patient encounter procedure Dante Waite MD Work Phone: OB/Gynecology Comment on above: Supervision of high risk in third trimester (HCC) (Primary Dx); Hx of preeclampsia, prior , currently (HCC); Breech presentation with problem, single or unspecified fetus (HCC); 36 weeks gestation of (HCC); Anemia during in third trimester (HCC) Start: 11-12-2024 End: 11-12-2024 ambulatory KATHY VYAS Facility:[facility] Start: 11-10-2024 End: 11-10-2024 Patient [...] of (HCC) Start: 10-27-2024 End: 10-27-2024 ambulatory [facility] Facility:[facility] Start: 10-13-2024 End: 10-13-2024 Patient encounter procedure Dante Waite MD Work Phone: OB/Gynecology Comment on above: Supervision of high risk in third trimester (HCC) (Primary Dx); Hx of preeclampsia, prior , currently (HCC); Anemia during in third trimester (HCC); 32 weeks gestation of (HCC) Start: 10-13-2024 End: 10-13-2024 [facility] Facility:[facility] Start: 10-04-2024 End: 10-04-2024 Telephone encounter Dante Waite MD Work Phone: OB/Gynecology Comment on above: Breast Pump Start: 09-27-2024 End: 11-27-2024 Follow-up encounter Tara Parks APRN.CNM Work Phone: OB/Gynecology Start: 09-27-2024 End: 09-27-2024 [facility] Facility:[facility] Start: 09-27-2024 End: 09-27-2024 Patient [...] 09-15-2024 End: 09-15-2024 ambulatory KATHY E MIEDEL Facility:[facility] Start: 08-18-2024 End: 08-18-2024 Patient encounter procedure Dante Waite MD Work Phone: OB/Gynecology Comment on above: Supervision of high risk in second trimester (HCC) (Primary Dx); 24 weeks gestation of (HCC); Screening for diabetes mellitus Start: 08-18-2024 End: 08-18-2024 [facility] Start: 07-21-2024 End: 07-21-2024 [facility] Facility:[facility] Start: 07-21-2024 End: 07-21-2024 Patient encounter procedure Macarena Perez APRN.CNP Work Phone: OB/Gynecology Comment on above: Supervision of high risk in second trimester (HCC) (Primary Dx); 20 weeks gestation of (HCC); Hx of preeclampsia, prior , currently (HCC); Hx of gestational diabetes in prior , currently (HCC) Start: 07-21-2024 End: 07-21-2024 ambulatory KATHY E MIEDEL Facility:[facility] Start: 06-23-2024 End: 06-23-2024 ambulatory [facility] Facility:[facility] Start: 06-23-2024 End: 06-23-2024 Patient [...] 06-02-2024 Patient encounter procedure [facility] Comment on above: Encounter for antena holly screening for malformation using ultrasound (Primary Dx); 13 weeks gestation of Start: 05-18-2024 End: 05-18-2024 ambulatory KATHY Gianfranco VYAS Facility:[facility] Start: 05-18-2024 End: 05-18-2024 Patient [...] Start: 04-19-2024 End: 04-19-2024 ambulatory KATHY Gianfranco [employer] Facility:[facility] Start: 04-19-2024 End: 04-19-2024 Patient encounter procedure Mai [place] APRN.[employer] Work Phone: OB/Gynecology Comment on above: with [...] encounter status Dante Waite MD Work Phone: [facility] Start: 09-19-2023 Refill Dante owens MD [...] 09-16-2022 End: 09-16-2022 Emergency department patient visit [facility] [place] Start: 09-16-2022 End: 09-16-2022 Subsequent hospital visit by physician Abiodun [facility] Work Phone: Radiology Comment on above: Acute cough [R05.1] Start: 09-16-2022 End: 09-16-[address] MD Work Phone: [facility] Comment on above: Acute cough [...] End: 01-05-2022 Evaluation and management of inpatient [facility] Start: 01-01-2022 End: 01-01-2022 Patient encounter procedure [...] first trimester Start: 12-06-2021 End: 12-06-2021 ambulatory [facility] Work Phone: Start: 12-06-2021 End: 12-06-2021 Patient encounter procedure [place] Start: 12-04-2021 End: 12-04-2021 Patient encounter [...] Nursing evaluation of patient and report Nurse [employer] [facility] Work Phone: OB/Gynecology Comment on [...] Phone: OB/Gynecology Comment on above: [employer] form ([place]) Procedures Date Procedure Procedure Detail Performing Clinician [...] Speci men Type: BLOOD SPECIMEN Ordering Facility: [facility] Address: [address] [place] [address] Performed By: #### T SPN #### CC MAIN BLOOD BANK CLIA [id number] [facility] DESK [id number] [place] [address] [place] Start: 05-04-2024 Us preg uterus after 1st trimest 04/14 gestation 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[employer] Work Phone: Start: 04-19-2024 Us uterus limited 1/> fetuses 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[employer] Work Phone: Start: 04-19-2024 Adult depression screening [...] DTaP,Tdap,Td Vaccine (4 - Td or Tdap) [facility] Start: 12-05-2031 Urine microalbumin profile [facility] Start: 11-14-2029 Urine microalbumin profile DTAP,TDAP,TD (2 - Td or Tdap) [facility] Start: 05-29-2026 HPV TESTING HPV TESTING [facility] Start: 05-29-2026 PAP TESTING PAP TESTING [facility] Start: 05-29-2026 Screening for malign ant neoplasm of cervix [facility] Start: 04-19-2025 Anxiety Screening Anxiety Screening [facility] Start: 04-19-2025 Depression Screening Depression Scre ening [facility] Start: 12-20-2024 End: 12-20-2024 Patient encounter procedure 12/20/2024 10:50 AM EDT Office Visit OB/Gynecology [address] [place] [address] Dante Waite MD [address] [place] [id number] POST OP 6 week OB/Gynecology Comment on above: POST OP 6 week Start: 12-13-2024 Influenza vaccination [facility] Start: 12-08-2024 End: 12-08-2024 Patient encounter procedure 12/08/2024 10:20 AM EDT Office Visit OB/Gynecology [address] [place] [address] Dante Waite MD [address] [place] [address] 1 week incision check OB/Gynecology Comment on above: 1 week incision chec k Start: 11-24-2024 End: 11-24-2024 Patient encounter procedure OB/Gynecology Comment on above: OB OB - Pre Op C/S 11/30 @ [facility] Start: 11-17-2024 End: 11-17-2024 Patient encounter procedure OB/Gynecology Comment on above: OB OB- Start: 11-15-2024 Nonstress test [facility] Start: 11-15-2024 Catheterization of vein [facility] Start: 11-15-2024 [facility] Start: 11-15-2024 End: 11-15-2024 Patient encounter procedure 11/15/2024 10:20 AM EDT Routine Office Visit OB/Gynecology [address] [place] [address] Dante Waite MD [address] [place] [address] OB/ Ok per RR she will be back form suegery OB/Gynecology Comment on above: OB/ Ok per RR she wi ll be back form suegery Start: 11-15-2024 Patient discharge [facility] Start: 11-12-2024 End: 11-12-2024 Patient encounter procedure 11/12/2024 10:30 AM EDT Routine Office Visit OB/Gynecology [address] [address] Dante Waite MD [address] [place] [id number] OB - check presentation to see if she is still breech OB/Gynecology Comment on above: OB - check presentat ion to see if she is still breech Start: 11-10-2024 End: 11-10-2024 Patient encounter procedure 11/10/2024 10:40 AM EDT Routine Office Visit OB/Gynecology [address] [place] [address] Dante Waite MD [address], [place] [id number] OB OB/Gynecology Comment on above: OB Start: 10-27-2024 End: 10-27-2024 Patient encounter procedure 10/27/2024 8:30 AM EDT Routine Office Visit OB/Gynecology [address] [place] [address] Dante Waite MD [address] [place], [place] [id number] OB OB/Gynecology Comment on above: OB Start: 10-13-2024 End: 01-12-2025 CBC panel - Blood by Automated count COMPLETE BLOOD COUNT Lab Routine Supervision of high risk in third trimester (HCC) Hx of preeclampsia, prior , currently (HCC) Anemia during in third trimester (HCC) 32 weeks gestation of (HCC) Expected: 10/13/2024, Expires: 01/12/2025 [facility] Work Phone: Comment on above: Expected: 10/13/2024 , Expires: 01/12/2025 Start: 10-13-2024 End: 10-13-2024 Patient encounter procedure 10/13/2024 1:40 PM EDT Office Visit OB/Gynecology [address] [place], [place] [address] Dante Waite MD [address] [place], [place] [address] Annual OB/Gynecology Comment on above: Annual Start: 10-13-2024 End: 10-13-2024 Patient encounter procedure 10/13/2024 8:30 AM EDT Routine Office Visit OB/Gynecology [address] [place] [address] Dante Waite MD [address] [place] [address] OB OB/Gynecology Comment on above: OB Start: 09-15-2024 End: 09-15-2024 ambulatory 09/15/2024 9:15 AM EDT Results Only Letty Ricardo [facility] [address] [place] [address] Letty Robersonwn [facility] Start: 09-15-2024 End: 09-15-2024 Patient encounter procedure 09/15/2024 8:30 AM EDT Routine Office Visit OB/Gynecology [address] [place] [address] Dante Waite MD [address] [place] [address] OB OB/Gynecology Comment on above: OB Start: 08-18-2024 End: 11-17-2024 ANEMIA REFLEX PANEL ANEMIA REFLEX PANEL Lab Routine 24 weeks gestation of ([facility]) Screening for diabetes mellitus Expected: 08/18/2024, Expires: 11/17/2024 [facility] Comment on above: Expected: 08/18/2024 , Expires: 11/17/2024 Start: 08-18-2024 End: 08-18-2025 GESTATIONAL GLUCOSE SCREEN, 1-HOUR, 50 GRAM, NON-FASTING GESTATIONAL GLUCOSE SCREEN, 1-HOUR, 50 GRAM, NON-FASTING Lab Routine 24 weeks gestation of (HCC) Screening for diabetes mellitus Expected: 08/18/2024, Expires: 08/18/2025 [facility] Work Phone: Comment on above: Expected: 08/18/2024 , Expires: 08/18/2025 Start: 08-18-2024 End: 08-18-2025 SYPHILIS TREPONEMAL W/REFLEX SYPHILIS TREPONEMAL W/REFLEX Lab Routine 24 weeks gestation of (HCC) Screening for diabetes mellitus Expected: 08/18/2024, Expires: 08/18/2025 [facility] Comment on above: Expected: 08/18/2024 , Expires: 08/18/2025 Start: 08-18-2024 End: 08-18-2024 Patient encounter procedure 08/18/2024 8:30 AM EDT Routine Office Visit OB/Gynecology [address] [place] [address] Dante Waite MD [address] [place] [address] OB OB/Gynecology Comment on above: OB Start: 07-21-2024 End: 07-21-2024 Patient encounter procedure 07/21/2024 3:40 PM EDT Routine Office Visit OB/Gynecology [address] [place] [address] Dante Waite MD [address] [place] [address] Anatomy/OB OB/Gynecology Comment on above: Anatomy/OB Start: 07-21-2024 End: 07-21-2024 Patient encounter procedure 07/21/2024 2:30 PM EDT Routine Office Visit [facility]aternal Medicine [address] [place] [address] Anatomy [facility] Comment on above: Anatomy Start: 06-23-2024 End: 06-23-2024 Patient encounter procedure [facility] Comment on above: Early Anatomy Early Anatomy/OB Start: 06-02-2024 End: 06-02-2024 Patient encounter procedure 06/02/2024 3:10 PM EST Routine Office Visit OB/Gynecology [address] [place] [address] Dante Waite MD [address] [place] [address] OB Routine OB/Gynecology Comment on above: OB Routine Start: 06-02-2024 End: 06-02-2024 Patient encounter procedure 06/02/2024 10:30 AM EST Routine Office Visit [facility]aternal [facility] [address] [place] [address] Early Anatomy [facility] Comment on above: Early Anatomy Start: 05-29-2024 PAP TESTING PAP TESTING [facility] Start: 05-18-2024 End: 05-18-2024 Patient encounter procedure 05/18/2024 10:20 AM EST Routine Office Visit OB/Gynecology [address] [place] [address] Dante Waite MD [address] [place] [address] NEW OB VISIT, LMP 02/28/24, LETTY DELIVERY OB/Gynecology Comment on above: NEW OB VISIT, LMP , LETTY DELIVERY Start: 05-18-2024 End: 05-18-2024 Patient encounter procedure 05/18/2024 8:30 AM EST Routine Office Visit OB/Gynecology [address] [place] [address] Dante Waite MD [address] [place] [address] OB OB/Gynecology Comment on above: OB Start: 05-17-2024 End: 05-17-2024 Patient encounter procedure 05/17/2024 10:10 AM EST Routine Office Visit OB/Gynecology [address] [place] [address] Mare Winters MD [address] [place] [address] NEW OB VISIT, LMP 02/28/24, LETTY DELIVERY OB/Gynecology Comment on above: NEW OB VISIT, LMP , [place] DELIVERY Start: 05-04-2024 End: 08-03-2024 Chromosome 21 trisomy [Presence] in Blood or Tissue by Cytogenetics [id number] PLUS Lab Routine Encounter for supervision of normal in multigravida Hx of preeclampsia, prior , currently 9 weeks gestation of Expected: 05/04/2024, Expires: 08/03/2024 [facility] Comment on above: Expected: 05/04/2024 , Expires: 08/03/2024 Start: 05-04-2024 End: 05-04-2025 OBSTETRIC ULTRASOUND WHI OBSTETRIC ULTRASOUND [facility] Anc Imaging Routine Encounter for supervision of normal in multigravida Hx of preeclampsia, prior , currently 9 weeks gestation of Expected: 05/04/2024, Expires: 05/04/2025 [facility] Comment on above: Expected: 05/04/2024 , Expires: 05/04/2025 Start: 05-04-2024 End: 05-04-2024 Patient encounter procedure [facility] Comment on above: Dating Dating /OB Start: 04-19-2024 End: 07-19-2024 ANEMIA REFLEX PANEL ANEMIA REFLEX PANEL Lab Routine with uncertain dates, antepartum Encounter for supervision of normal in multigravida Expected: 04/19/2024, Expires: 07/19/2024 [facility] Work Phone: Comment on above: Expected: 04/19/2024 , Expires: 07/19/2024 Start: 04-19-2024 End: 07-19-2024 Hemoglobin A1c in Blood HEMOGLOBIN A1C Lab Routine with uncertain dates, antepartum Encounter for supervision of normal in multigravida Expected: 04/19/2024, Expires: 07/19/2024 [facility] Comment on above: Expected: 04/19/2024 , Expires: 07/19/2024 Start: 04-19-2024 End: 07-19-2024 Hepatitis B virus surface Ag [Presence] in Serum HEPATITIS B SURFACE ANTIGEN Lab Routine with uncertain dates, antepartum Encounter for supervision of normal in multigravida Expected: 04/19/2024, Expires: 07/19/2024 [facility] Comment on above: Expected: 04/19/2024 , Expires: 07/19/2024 Start: 04-19-2024 End: 07-19-2024 Hepatitis C virus Ab [Presence] in Serum HEPATITIS C ANTIBODY IA WITH CONFIRMATION Lab Routine with uncertain dates, antepartum Encounter for supervision of normal in multigravida Expected: 04/19/2024, Expires: 07/19/2024 [facility] Comment on above: Expected: 04/19/2024 , Expires: 07/19/2024 Start: 04-19-2024 End: 07-19-2024 HIV 1+2 Ab [Presence] in Serum or Plasma by Immunoassay HIV 1/2 COMBO WITH REFLEX TO DIFFERENTIATION Lab Routine with uncertain dates, antepartum Encounter for supervision of normal in multigravida Expected: 04/19/2024, Expires: 07/19/2024 [facility] Comment on above: Expected: 04/19/2024 , Expires: 07/19/2024 Start: 04-19-2024 End: 04-19-2025 OBSTETRIC ULTRASOUND [facility] OBSTETRIC ULTRASOUND [facility] Anc Imaging Routine 7 weeks gestation of Expected: 04/19/2024, Expires: 04/19/2025 [facility] Comment on above: Expected: 04/19/2024 , Expires: 04/19/2025 Start: 04-19-2024 End: 07-19-2024 RUBELLA IGG ANTIBODY RUBELLA IGG ANTIBODY Lab Routine with uncertain dates, antepartum Encounter for supervision of normal in multigravida Expected: 04/19/2024, Expires: 07/19/2024 [facility] Comment on above: Expected: 04/19/2024 , Expires: 07/19/2024 Start: 04-19-2024 End: 07-19-2024 SYPHILIS TREPONEMAL W/REFLEX SYPHILIS TREPONEMAL W/REFLEX Lab Routine with uncertain dates, antepartum Encounter for supervision of normal in multigravida Expected: 04/19/2024, Expires: 07/19/2024 [facility] Comment on above: Expected: 04/19/2024 , Expires: 07/19/2024 Start: 04-19-2024 End: 07-19-2024 TYPE + SCREEN TYPE + SCREEN Blood Bank Routine with uncertain dates, antepartum Encounter for supervision of normal in multigravida Expected: 04/19/2024, Expires: 07/19/2024 [facility] Comment on above: Expected: 04/19/2024 , Expires: 07/19/2024 Start: 04-19-2024 End: 04-19-2024 Patient encounter procedure 04/19/2024 8:15 AM EST Initial Office Visit OB/Gynecology [address] [place] [address] Mai Blanton APRN.[employer] [address] [place] [address] NEW OB VISIT, LMP 02/28/24, LETTY DELIVERY OB/Gynecology Comment on above: NEW OB VISIT, LMP , LETTY DELIVERY Start: 12-14-2023 Covid-19 Vaccine ( season) Covid-19 Vaccine () [facility] Start: 12-14-2023 Covid-19 Vaccine () Covid-19 Vaccine () [facility] Start: 12-14-2023 Influenza vaccination [facility] Start: 11-25-2023 End: 11-25-2023 Patient encounter procedure 11/25/2023 8:40 AM EDT Office Visit OB/Gynecology [address] [place] [address] Dante Waite MD [address] [place] [address] annual OB/Gynecology Comment on above: annual Start: 04-14-2023 Behavioral Health Screening Behavioral Health Screening [facility] Start: 04-14-2023 Depression Assessment Depression Ass essment [facility] Start: 03-10-2023 End: 06-09-2023 Bacteria identified in Urine by Culture [facility] Work Phone: Comment on above: Expected: 03/10/2023 , Expires: 06/09/2023 Start: 12-13-2022 Covid-19 Vaccine ( season) Covid-19 Vaccine () [facility] Start: 12-13-2022 Influenza vaccination Influenza Vacc ine (#1) [facility] Start: 04-14-2022 DEPRESSION ASSESSMENT DEPRESSION ASS ESSMENT [facility] Start: 01-05-2022 Patient discharge [facility] Work Phone: Start: 01-04-2022 Following clinical pathway protocol [facility] Work Phone: Start: 01-04-2022 Administration of medication [facility] Work Phone: Start: 01-04-2022 Application of ice collar, cap or bag [facility] Work Phone: Start: 01-04-2022 Catheterization of vein [facility] Work Phone: Start: 01-04-2022 Introduction of urin ruth catheter [facility] Work Phone: Start: 01-04-2022 Measuring intake and output [facility] Work Phone: Start: 01-04-2022 Notification of physician [facility] Work Phone: Start: 01-04-2022 Procedure discontinued [facility] Work Phone: Start: 01-04-2022 Provision of activit y privileges [facility] Work Phone: Start: 01-04-2022 Vital signs measurements [facility] Work Phone: Start: 01-04-2022 [facility] Work Phone: Start: 01-04-2022 Admission procedure [facility] Work Phone: Start: 01-03-2022 COVID-19 VACCINE (4 - Booster for Moderna series) COVID-19 VACCINE (4 - Booster for Moderna series) [facility] Start: 12-13-[address] [facility] Start: 12-06-2021 Nonstress test [facility] Work Phone: Start: 12-06-2021 Obstetric monitoring [facility] Work Phone: Start: 12-06-2021 Vital signs measurements [facility] Work Phone: Start: 12-06-2021 [facility] Work Phone: Start: 10-09-2021 End: 12-09-2021 GEST GLUC RAYMOND, 3-HR, 100 GM, FASTING GEST GLUC RAYMOND, 3-HR, 100 GM, FASTING Lab Routine Abnormal glucose in , antepartum Expected: 10/09/2021, Expires: 12/09/2021 [facility] Work Phone: Comment on above: Expected: 10/09/2021 , Expires: 12/09/2021 Start: 09-11-2021 End: 11-11-2021 CBC W Auto Differential panel - Blood CBC + DIFF Lab Routine 22 weeks gestation of History of delivery, currently Encounter for supervision of other normal in second trimester Expected: 09/11/2021, Expires: 11/11/2021 [facility] Work Phone: Comment on above: Expected: 09/11/2021 , Expires: 11/11/2021 Start: 09-11-2021 End: 11-11-2021 GEST GLUC SCREEN, 1-HR, 50 GM, NON-FASTING GEST GLUC SCREEN, 1-HR, 50 GM, NON-FASTING Lab Routine 22 weeks gestation of History of delivery, currently Encounter for supervision of other normal in second trimester Expected: 09/11/2021, Expires: 11/11/2021 [facility] Work Phone: Comment on above: Expected: 09/11/2021 , Expires: 11/11/2021 Start: 09-11-2021 End: 11-11-2021 SYPHILIS TOTAL W/REFLEX SYPHILIS TOTAL W/REFLEX Lab Routine 22 weeks gestation of History of delivery, currently Encounter for supervision of other normal in second trimester Expected: 09/11/2021, Expires: 11/11/2021 [facility] Work Phone: Comment on above: Expected: 09/11/2021 , Expires: 11/11/2021 Start: 07-24-2021 COVID-19 VACCINE (3 - Booster for Moderna series) COVID-19 VACCINE (3 - Booster for Moderna series) [facility] Start: 04-14-2021 DEPRESSION ASSESSMENT DEPRESSION ASS ESSMENT [facility] Start: 2019 HPV Vaccine (1 - 3-d ose SCDM series) HPV Vaccine (1 - 3-dose SCDM series) [facility] Start: 2011 Hepatitis B Vaccine (1 of 3 - 19+ 3-dose series) Hepatitis B Vaccine (1 of 3 - 19+ 3-dose series) [facility] Start: 2010 Anxiety Screening Anxiety Screening [facility] Start: 2010 Depression Screening Depression Scre ening [facility] Start: 2004 Adult depression screening assessment DEPRESSION SCREENING [facility] Start: 1992 HEPATITIS B (1 of 3 - 3-dose series) HEPATITIS B (1 of 3 - 3-dose series) [facility] Start: 1992 Hepatitis B Vaccine (1 of 3 - 3-dose series) Hepatitis B Vaccine (1 of 3 - 3-dose series) [facility] Bacteria identified in Urine by Culture URINE CULTURE Microbiology Routine with uncertain dates, antepartum Encounter for supervision of normal in multigravida 04/19/2024 9:05 AM EST [facility] Bacteria identified in Urine by Culture BACTERIAL CULTURE, URINE Microbiology Routine Supervision of high risk in third trimester (HCC) 30 weeks gestation of (HCC) Urinary frequency 09/27/2024 9:26 AM EDT [facility] Work Phone: Chlamydia trachomatis+Neisseria gonorrhoeae DNA [Presence] in Unspecified specimen by LUPIS with probe detection GONORRHEA/CHLAMYDIA NAAT Lab Routine with uncertain dates, antepartum Encounter for supervision of normal in multigravida 04/19/2024 9:05 AM EST [facility] Microscopic observat ion [Identifier] in Vaginal fluid by Gram stain BACT/JONI VAG GRAM STAIN Microbiology Routine Vaginal discharge Vaginal odor 03/05/2022 11:52 AM EST [facility] Work Phone: OBSTETRIC ULTRASOUND WHI OBSTETR IC ULTRASOUND WHI Anc Imaging Routine Diet controlled gestational diabetes mellitus (GDM) in third trimester 32 weeks gestation of Supervision of other high risk pregnancies, third trimester Ordered: 11/20/2021 [facility] Work Phone: Comment on above: Ordered: 11/20/2021 End: 05-04-2025 OBSTETRIC ULTRASOUND WHI OBSTETRIC ULTRASOUND [facility] Anc Imaging Routine Encounter for supervision of normal in multigravida Hx of preeclampsia, prior , currently 9 weeks gestation of 1 Occurrences starting 05/04/2024 until 05/04/2025 [facility] Work Phone: Comment on above: 1 Occurrences starti ng 05/04/2024 until 05/04/2025 Patient Education [facility] Work Phone: Patient referral [facility] Work Phone: ROUTINE, GR OUP B STREP PCR ROUTINE, GROUP B STREP PCR Microbiology Routine 35 weeks gestation of Diet controlled gestational diabetes mellitus (GDM) in third trimester 12/13/2021 12:07 PM EDT [facility] Work Phone: ROUTINE, GR OUP B STREPTOCOCCUS BY PCR ROUTINE, GROUP B STREPTOCOCCUS BY PCR Microbiology Routine Supervision of high risk in third trimester (HCC) Hx of preeclampsia, prior , currently (HCC) 36 weeks gestation of ([facility]) 11/10/2024 11:19 AM EDT [facility] Work Phone: URINE OB DIP B/O URINE OB DIP B/ O Lab Routine 36 weeks gestation of Diet controlled gestational diabetes mellitus (GDM) in third trimester Supervision of other high risk pregnancies, first trimester Ordered: 12/19/2021 [facility] Work Phone: Comment on above: Ordered: 12/19/2021 URINE OB DIP B/O URINE OB DIP B/ O Lab Routine 37 weeks gestation of (HCC) Supervision of high risk in third trimester ([facility]) Ordered: 11/15/2024 [facility] Work Phone: Comment on above: Ordered: 11/15/2024 [facility] Immunizations Immunization Date Immunization Notes Care Provider Aleksandar [email or web address] 09-15-2024 tetanus toxoid, redu easton diphtheria toxoid, and acellular pertussis vaccine, adsorbed Dante Waite MD Work Phone: [facility] 01-05-2022 influenza, injectabl e, quadrivalent, preservative free Dr. Kathy Vyas MD Work Phone: [facility] 01-05-2022 influenza, seasonal, injectable [facility] 01-05-2022 influenza virus vaccine, unspecified formulation Dante Waite MD Work Phone: [facility] 12-04-2021 tetanus toxoid, redu easton diphtheria toxoid, and acellular pertussis vaccine, adsorbed Manjula Diaz MD Work Phone: [facility] 01-13-2020 influenza virus vaccine, unspecified formulation Dante Waite MD Work Phone: [facility] Work Phone: 01-12-2020 influenza, injectabl e, quadrivalent, preservative free Dr. Kathy Vyas MD Work Phone: [facility] 01-12-2020 influenza, seasonal, injectable [facility] 01-12-2020 influenza, seasonal, injectable, preservative free Dante Waite MD Work Phone: [facility] Work Phone: 11-15-2019 tetanus toxoid, redu easton diphtheria toxoid, and acellular pertussis vaccine, adsorbed Dante Waite MD Work Phone: [facility] Payers Date Payer Category Payer Self-pay [id number] 2022 [facility] [id number] 2022 Unknown [employer]LENA TRIVEDI PPO [id number] 2022-Present [phone] [address] [place] [address] PPO [id number] 2022 Unknown [id number] 2020 Private Health Insurance [employer] O[employer] [id number] 2020-Present [phone] [address] [place] [address] Open Access [id number] 2020 Private Health Insurance [employer] [id number] 2020-Present [phone] [address] [place] [address] Open Access [id number] Private Health Insurance [id number] Unknown [id number] Unknown [id number] Social History Date Type Detail Facility Start: 04-19-2011 End: 01-17-2022 Tobacco smoking status NHIS Never smoked tobacco [facility] Work Phone: Start: 04-19-2011 End: 01-17-2022 Tobacco use and exposure Smokeless tobacco non-user [facility] Work Phone: Start: 06-26-2021 End: 09-27-2024 Alcohol intake Current non-drinker of alcohol (finding) [facility] Start: 07-06-2019 History SDOH Financial 5 [facility] Start: 07-06-2019 History SDOH Food Worry 1 [facility] Start: 07-06-2019 History SDOH Transport Med 2 [facility] Start: 07-05-2019 Education 17 [facility] Start: 04-20-2021 [facility] Start: 1990 Sex Assigned At Not on file [facility] Start: 06-16-2021 End: 01-17-2022 Exposure to SARS-CoV-2 (event) Not sure [facility] Start: 01-10-2020 End: 09-16-2022 Tobacco smoking status NHIS Unknown if ever smoked [facility] Start: 1990 Sex Assigned At Female W [facility] Start: 09-16-2022 End: 10-10-2023 History of Social function [facility] Start: 09-16-2022 End: 10-10-2023 Tobacco use panel [facility] Start: 03-15-2012 How hard is it for you to pay for the very basics like food, housing, medical care, and heating Not hard at all [facility] (I/We) worried whether (my/our) food would run out before (I/we) got money to buy more. Never true [facility] NEGATED: Highlighted row [facility] Medical Equipment Procedure Code Equipment Code Equipment [...] Assessment Result Facility 09-16-2022 Cognitive function Voice/Name [facility] Work Phone: Clinical Notes 11-22-2019 to 11-24-2024 [...] Supervision of high risk in third trimester ([facility]) Orders: URINE OB DIP B/O Hx of preeclampsia, prior , currently ([facility]) Orders: URINE OB DIP B/O Breech presentation with problem, single or unspecified fetus ([facility]) Planned cs Orders: URINE OB DIP B/O Anemia during in third trimester ([facility]) Continue PO iron Orders: URINE OB DIP B/O 38 weeks gestation of ([facility]) Kick counts and labor reviewed Orders: URINE OB DIP B/O Kasey Perez MD [facility] 11-24-2024 Miscellaneous Notes DM-Pt doing well. Denies vaginal Bleeding, Leaking fluid, or regular Contractions. Pt reports good movement Physical Exam: Gen: female in no apparent distress Abd: soft, Gravid. Non tender to palpation. See flow sheet @ 38.4 weeks Assessment & Plan Supervision of high risk in third trimester ([facility]) Orders: URINE OB DIP B/O Hx of preeclampsia, prior , currently ([facility]) Orders: URINE OB DIP B/O Breech presentation with problem, single or unspecified fetus ([facility]) Planned cs Orders: URINE OB DIP B/O Anemia during in third trimester ([facility]) Continue PO iron Orders: URINE OB DIP B/O 38 weeks gestation of ([facility]) Kick counts and labor reviewed Orders: URINE OB DIP B/O Kasey Perez MD documented in this encounter [facility] 11-24-2024 Instructions Milana Quintana MA - 11/24/2024 8:58 AM EDT SEQUENTIAL SCREENINGS The [facility] offers sequential screenings for women who [...] It will require an appointment with our ultrasound tech. This is not an ultrasound performed by [...] the above symptoms, contact our office at [phone] and ask to speak with a nurse. After hours, you can call doctors registry at [phone] OR call [facility] at [phone] and ask to have the doctor supervisor elementary education paged. If you consider this an emergency, dial 9-1-1 or go to your nearest emergency department. NEED HELP? Are you dealing with a violent or abusive relationship? Are you a victim of rape or sexual assult? Call [facility] ([place]) 24 hour Crisis Hotline: 652.756.4725 or 694-180-2080. MANUAL Your Guide to a Healthy manual is now on-line. Visit [email or web address] ncyGuide to download your free copy documented in this encounter [facility] 11-23-2024 Note HNO ID: [id number] Author: MARIO ALBERTO TOMLINSON, ? Service: ? Author Type: Patient Travel Service Consultant Type: Progress Notes Filed: 11/23/2024 07:33 Note Text: POPULATION HEALTH NAVIGATION OUTREACH Action/I No outreach done added director sales and trade marketing via note Reason for Outreach Medicaid OB/Peds Care Gaps due: N/A Patient Contacted: Unable or unnecessary to reach patient: Ivor director sales and trade marketing added Navigation Signature: Mario Alberto Tomlinson Population Health Navigator November 23, 2024 7:32 AM [facility] 11-23-2024 History of Present illness Narrative POPULATION HEALTH NAVIGATION OUTREACH Action/I No outreach done added director sales and trade marketing via note Reason for Outreach Medicaid OB/Peds Care Gaps due: N/A Patient Contacted: Unable or unnecessary to reach patient: Ivor director sales and trade marketing added Navigation Signature: Mario Alberto Tomlinson Population Health Navigator November 23, 2024 7:32 AM documented in this encounter [facility] 11-23-2024 Note Patient Outreach (NE TNAV) HERB MORAN ([id number]) 1990 F Date Time Provider Department 11/23/24 MARIO ALBERTO TOMLINSON NETTADV During your visit today, we recorded the following information about you: Mario Alberto Tomlinson 11/23/2024 7:33 AM Signed POPULATION HEALTH NAVIGATION OUTREACH Action/I No outreach done added director sales and trade marketing via note Reason for Outreach Medicaid OB/Peds Care Gaps due: N/A Patient Contacted: Unable or unnecessary to reach patient: Ivor director sales and trade marketing added Navigation Signature: Mario Alberto Tomlinson Population [...] fir*05/29/2021 01/17/2022 Anemia during in third trimester ([facility]*10/09/2021 Supervision of high risk in second tr*04/19/2024 Hx of preeclampsia, prior , currently *04/19/2024 Breech presentation with problem ([facility]*11/10/2024 Encounter Status:Closed by MARIO ALBERTO TOMLINSON on 11/23/24 [facility] 11-18-2024 Note [facility] Medical Records Department [address] [place] [id number] History Physical Exam 11/18/24 0912 MR#: [id number] Acct: [id number] Name: DEANHERB DOREEN Rep #: [id number] : 1990 34 From: Dante Waite MD PCP: Dr. Kathy Vyas MD Status:PRE IN Location: [facility] History and Physical Date of Admission: 11/30/24 HPI: The patient is a 34 year old female presenting for pre-operative visit. She is scheduled for , for breech on 11/30/24. Procedure discussed along with risks, benefits and complications. Other alternatives discussed for management. Consent form signed? Yes. ? PAST MEDICAL HISTORY PAST MEDICAL HISTORYDiagnosisDate???Acne? Anemia?Gestational diabetes mellitus, class A1 ([facility])11/22/2019???Hx of preeclampsia, prior , currently ([facility])04/19/2024???Preeclampsia (HCC)? PAST SURGICAL HISTORY PAST SURGICAL HISTORYProcedureLateralityDate??? [...] Grandmother?Alzheimer's DiseaseMaternal Grandmother?HypertensionMate rnal Grandfather?LeukemiaMaternal Grandfather?HeartPaternal Grandmother? [place]???StrokePaternal Grandmother?HeartPaternal [id number]???CancerPaternal Grandfather? Skin???other (Brain Tumor (Cancer))Other? Maternal Great [...] Vyas MD; Dr. Dante Waite MD Signed [facility] 11-17-2024 Note HNO ID: [id number] Author: DANTE WAITE MD Service: ? Author Type: Physician Type: Progress Notes Filed: 11/18/2024 09:11 Note Text: [facility] 11-15-2024 Progress note [facility] 11-15-2024 History and physical note Note Date/Time November 15, 2024 12:53pm [facility] Medical Records Department [address] [place] [address] OB Triage Physician Note 11/15/24 1249 MR#: [id number] Acct: [id number] Name: HERB MORAN Rep #:[id number] : 1990 34 From: Dante Waite MD PCP: Dr. Kathy Vyas MD Status:REG CLI Y Location: [address] HPI - General General Date of Admission: 11/15/24 Date of Service: 11/15/24 Chief Complaint: breech HPI Narrative HERB MORAN, is a 34 F who presents Maternal Data Information Final EDIL: 12/02/24 Gestational age: 37 4/7 [facility] Medical History (Updated 11/15/24 @ 12:51 [...] MD; Dr. Dante Waite MD ~ Signed [facility] Work Phone: 1(956) 831-285008-04-2025 History and physical note [facility] Medical Records Department [address] [place] [address] OB Triage Physician Note 11/15/24 1249 MR#: [id number] Acct: [id number] Name: HERB MORAN Rep #:[id number] : 1990 34 From: Dante Waite MD PCP: Dr. Kathy Vyas MD Status:REG CLI Y [facility] - General General Date of Admission: 11/15/24 Date of Service: 11/15/24 Chief Complaint: breech HPI Narrative HERB MORAN, is a 34 F who presents Maternal Data Information Final EDIL: 12/02/24 Gestational age: 37 4/7 [facility] Medical History (Updated 11/15/24 @ 12:51 [...] MD; Dr. Dante Waite MD ~ Signed [facility]08-04-2025 Evaluation note* Diagnosis Onset Date Resolution Status Admit Date 37 weeks gestation of acut e November 15, 2024 10:35am Complete breech acute November 10:35am [facility] Work Phone: 1(794) 461-187708-04-2025 Progress note* Quick Notes - Dante Waite MD - 11/15/2024 10:34 AM EDT US confirms breech, back to maternal left. Desires attempted ECV. To [facility]. Dante Waite MD [facility]08-04-2025 Miscellaneous Notes* Quick Notes - Dante Waite MD - 11/15/2024 10:34 AM EDT US confirms breech, back to maternal left. Desires attempted ECV. To [facility]. Dante Waite MD [facility] Instructions* Patient Instructions* Sara Asencio MA - 11/15/2024 10:05 AM EDT SEQUENTIAL SCREENINGS The [facility] offers sequential screenings for women who [...] testing. It will require an appointment withour ultrasound tech. This is not an ultrasound performed by [...] the above symptoms, contact our office at [phone] and ask to speak with anurse. After hours, you can call doctors registry at [phone] OR call [facility] at [phone] ask to have the doctor supervisor elementary education paged. If you consider this an emergency, dial 9-1-5 or go to your nearest emergency department. NEED HELP? Are you dealing with a violent or abusive relationship? Are you a victim of rape or sexual assult? Call [facility] ([place]) 24 hour Crisis Hotline: 954.419.8358 or 462-425-3801. MANUAL Your Guide to a Healthy manual is now on-line. Visit [email or web address] to download your free copy [facility]25 Progress note* Quick Notes - Dante Waite MD - 11/12/2024 12:30 PM EDT Brief visit, still breech, plan f/u in 3 days and if breech trial ECV. Dante Waite MD` [facility]08-01-2025 Miscellaneous Notes* Quick Notes - Dante Waite MD - 11/12/2024 12:30 PM EDT Brief visit, still breech, plan f/u in 3 days and if breech trial ECV. Dante Waite MD` documented in this encounterMer[facility]08-01-2025 Instructions* Patient Instructions* Milana Quintana MA - 11/12/2024 10:49 AM EDT SEQUENTIAL SCREENINGS The [facility] offers sequential screenings for women who [...] testing. It will require an appointment withour ultrasound tech. This is not an ultrasound performed by [...] the above symptoms, contact our office at [phone] and ask to speak with anurse. After hours, you can call doctors registry at [phone] OR call [facility] at [phone] ask to have the doctor supervisor elementary education paged. If you consider this an emergency, dial 8-6-9 or go to your nearest emergency department. NEED HELP? Are you dealing with a violent or abusive relationship? Are you a victim of rape or sexual assult? Call [facility] ([facility] 24 hour Crisis Hotline: 457.183.9033 or 005-478-0355. MANUAL Your Guide to a Healthy manual is now on-line. Visit [email or web address] to download your free copy documented in this encounterMer[facility]07-31-2025 Telephone encounter Note * Telephone Encounter - Dante Waite MD - 11/11/2024 3:40 PM EDT work her in tomorrow am w me anytime for quick eval. Dante Waite MD [facility]07-31-2025 Miscellaneous Notes* Telephone Encounter - Dante Waite MD - 11/11/2024 3:40 PM EDT work her in tomorrow am w me anytime for quick eval. Dante Waite MD documented in [facility] encounterMer[facility]07-30-2025 Progress note* Quick Notes - Dante Waite MD - 11/10/2024 10:47 AM EDT RR- VB No. LOF No. CTXS No. Movement: present. Other c/o: No. Medication list reviewed. SENSITIVE EXAM: Sensitive exam not performed. Physical Exam See Flow Sheet Abd: soft, nontender, gravid A/P 36w4d Estimated Date of Delivery: 12/04/24 Assessment & Plan Supervision of high risk in third trimester ([facility]) Orders: URINE OB DIP B/O ROUTINE, GROUP B STREPTOCOCCUS BY PCR Hx of preeclampsia, prior , currently ([facility]) bp stable, call for signs/symptoms of preeclampsia Orders: URINE OB DIP B/O ROUTINE, GROUP B STREPTOCOCCUS BY PCR 36 weeks gestation of ([facility]) Orders: URINE OB DIP B/O ROUTINE, GROUP B STREPTOCOCCUS BY PCR Breech presentation with problem, single or unspecified fetus ([facility]) r/b/a to ECV reviewed, desires to attempt if still breech next week. kick counts US confirms breech. Dante Waite M.D. [facility]07-30-2025 Miscellaneous Notes* Quick Notes - Dante Waite MD - 11/10/2024 10:47 AM EDT RR- VB No. LOF No. CTXS No. Movement: present. Other c/o: No. Medication list reviewed. SENSITIVE EXAM: Sensitive exam not performed. Physical Exam See Flow Sheet Abd: soft, nontender, gravid A/P 36w4d Estimated Date of Delivery: 12/04/24 Assessment & Plan Supervision of high risk in third trimester ([facility]) Orders: URINE OB DIP B/O ROUTINE, GROUP B STREPTOCOCCUS BY PCR Hx of preeclampsia, prior , currently ([facility]) bp stable, call for signs/symptoms of preeclampsia Orders: URINE OB DIP B/O ROUTINE, GROUP B STREPTOCOCCUS BY PCR 36 weeks gestation of ([facility]) Orders: URINE OB DIP B/O ROUTINE, GROUP B STREPTOCOCCUS BY PCR Breech presentation with problem, single or unspecified fetus ([facility]) r/b/a to ECV reviewed, desires to attempt if still breech next week. kick counts US confirms breech. Dante Waite M.D. documented in this encounterMer[facility] Hospital07-30-2025 Instructions* Patient Instructions* Milana Quintana MA - 11/10/2024 10:41 AM EDT SEQUENTIAL SCREENINGS The [facility] offers sequential screenings for women who [...] testing. It will require an appointment withour ultrasound tech. This is not an ultrasound performed by [...] the above symptoms, contact our office at [phone] and ask to speak with anurse. After hours, you can call doctors registry at [phone] OR call [facility] at [phone] ask to have the doctor supervisor elementary education paged. If you consider this an emergency, dial 7-2-4 or go to your nearest emergency department. NEED HELP? Are you dealing with a violent or abusive relationship? Are you a victim of rape or sexual assult? Call [facility] ([place]) 24 hour Crisis Hotline: 431.137.6827 or 253-664-9971. MANUAL Your Guide to a Healthy manual is now on-line. Visit [email or web address] to download your free copy documented in this encounterMercy [facility] Hospital07-16-2025 Progress note* Quick Notes - Dante Waite [...] This Visit Anemia during in third trimester ([facility]) Overview September 16, 2024 10.3 hemoglobin. Oral iron started. Macarena Perez, [place].[employer] Relevant Orders URINE OB DIP B/O (Completed) Hx of preeclampsia, prior , currently ([facility]) Relevant Orders URINE OB DIP B/O (Completed) Other Visit Diagnoses Supervision of high risk in third trimester ([facility]) - Primary Relevant Orders URINE OB DIP B/O (Completed) 34 weeks gestation of ([facility]) no signs or symptoms of preeclampsia, cont. to monitor kick counts f/u in 2 weeks or prn likely would elect for 39 week induction Dante Waite M.D. [facility]07-16-2025 Miscellaneous Notes* Quick Notes - Dante [...] This Visit Anemia during in third trimester ([facility]) Overview September 16, 2024 10.3 hemoglobin. Oral iron started. Macarena Perez, [place] Relevant Orders URINE OB DIP B/O (Completed) Hx of preeclampsia, prior , currently ([facility]) Relevant Orders URINE OB DIP B/O (Completed) Other Visit Diagnoses Supervision of high risk in third trimester ([facility]) - Primary Relevant Orders URINE OB DIP B/O (Completed) 34 weeks gestation of ([facility]) no signs or symptoms of preeclampsia, cont. to monitor kick counts f/u in 2 weeks or prn likely would elect for 39 week induction Dante Waite M.D. documented in this encounterMercy [facility] Hospital07-16-2025 Instructions* Patient Instructions* Milana Quintana MA - 10/27/2024 8:42 AM EDT SEQUENTIAL SCREENINGS The [facility] offers sequential screenings for women who [...] testing. It will require an appointment withour ultrasound tech. This is not an ultrasound performed by [...] the above symptoms, contact our office at [phone] and ask to speak with anurse. After hours, you can call doctors registry at [phone] OR call [facility] at [phone] ask to have the doctor supervisor elementary education paged. If you consider this an emergency, dial 1-4 or go to your nearest emergency department. NEED HELP? Are you dealing with a violent or abusive relationship? Are you a victim of rape or sexual assult? Call [facility] ([place]) 24 hour Crisis Hotline: 828.288.5225 or 003-043-0211. MANUAL Your Guide to a Healthy manual is now on-line. Visit [email or web address] to download your free copy documented in this encounterMercy [facility] Hospital07-02-2025 Progress note* Quick Notes - Dante [...] Supervision of high risk in third trimester ([facility]) Orders: COMPLETE BLOOD COUNT; Future Hx of preeclampsia, prior , currently ([facility]) bp stable Orders: COMPLETE BLOOD COUNT; Future Anemia during in third trimester ([facility]) Orders: COMPLETE BLOOD COUNT; Future 32 weeks gestation of ([facility]) Orders: COMPLETE BLOOD COUNT; Future f/u in 2 weeks or prn cont. fe for anemia, last hgb 10.7 no need to repeat at this time Dante Waite M.D. [facility]07-02-2025 Miscellaneous Notes* Quick Notes - Dante [...] Supervision of high risk in third trimester ([facility]) Orders: COMPLETE BLOOD COUNT; Future Hx of preeclampsia, prior , currently ([facility]) bp stable Orders: COMPLETE BLOOD COUNT; Future Anemia during in third trimester ([facility]) Orders: COMPLETE BLOOD COUNT; Future 32 weeks gestation of ([facility]) Orders: COMPLETE BLOOD COUNT; Future f/u in 2 weeks or prn cont. fe for anemia, last hgb 10.7 no need to repeat at this time Dante Waite M.D. documented in this encounterMercy [facility] Hospital06-23-2025 Telephone encounter Note * Telephone Encounter - Cem Back RN - 10/04/2024 1:42 PM EDT Faxed. Cem Back RN [facility]06-23-2025 Miscellaneous Notes* Telephone Encounter - Cem Back RN - 10/04/2024 1:42 PM EDT Faxed. Cem Back RN * Telephone Encounter - Mare Larios RN - 10/04/2024 8:49 AM EDT Received breast pump RX from [employer]. To RR to sign. Mare Larios RN documented in this encounterMercy [facility] Hospital06-23-2025 Telephone encounter Note * Telephone Encounter - Mare Larios RN - 10/04/2024 8:49 AM EDT [facility]. To RR to sign. Mare Larios RN [facility]06-16-2025 NoteHNO ID: [id number] Author: TARA PARKS APRN.[facility] Service: ? Author Type: Stave Jointer Type: Progress Notes Filed: 09/27/2024 09:21 Note [...] to call RTO as scheduled. Tara Parks APRN.CNWright-Patterson [facility]06-16-2025 History of Present illness Narrative* Tara Parks [...] scheduled. Tara Parks APRN.CNM documented in this encounterMercy Memorial Hospital06-16-2025 Instructions* Patient Instructions* Cody France MA - 09/27/2024 8:42 AM EDT SEQUENTIAL SCREENINGS The [facility] offers sequential screenings for women who [...] testing. It will require an appointment withour ultrasound tech. This is not an ultrasound performed by [...] the above symptoms, contact our office at [phone] and ask to speak with anurse. After hours, you can call doctors registry at [phone] OR call [facility] at [phone] ask to have the doctor supervisor elementary education paged. If you consider this an emergency, dial 9-7-2 or go to your nearest emergency department. NEED HELP? Are you dealing with a violent or abusive relationship? Are you a victim of rape or sexual assult? Call [facility] ([place]) 24 hour Crisis Hotline: 636.881.3329 or 563-092-3568. MANUAL Your Guide to a Healthy manual is now on-line. Visit [email or web address] to download your free copy documented in this encounterMercy [facility] Hospital06-04-2025 Progress note* Quick Notes - Dante [...] for vaccination tdap today Dante Waite M.D. [facility]06-04-2025 Miscellaneous Notes* Quick Notes - Dante [...] today Dante Waite M.D. documented in this encounterMercy Memorial Hospital06-04-2025 NoteHNO ID: [id number] Author: MARIANELA CAMPOS MA Service: ? Author Type: Rn Baby Type: Progress Notes Filed: 09/15/2024 09:17 Note [...] severely ill: Yes Patient denies history of Guillain-Kismet Syndrome (a severe paralytic illness): Yes Tdap Adacel injection was given without incident. See immunizations for details of immunizations administered today. VIS sheet provided: Yes Provider Dr Waite was present in office at time of injection. [facility] History of Present illness Narrative* Marianela Campos [...] severely ill: Yes Patient denies history of Guillain-Kismet Syndrome (a severe paralytic illness): Yes Tdap Adacel injection was given without incident. See immunizations for details of immunizations administered today. VIS sheet provided: Yes Provider Dr Waite was present in office at time of injection. Milana Quintana MA documented in this encounterMercy Memorial Hospital05-07-2025 Progress note* Quick Notes - Dante [...] or prn cont. PNV Dante Waite M.D. [facility]05-07-2025 Miscellaneous Notes* Quick Notes - Dante [...] PNV Dante Waite M.D. documented in this encounterMercy Memorial Hospital05-07-2025 Instructions* Patient Instructions* Milana uQintana MA - 08/18/2024 8:19 AM EDT SEQUENTIAL SCREENINGS The [facility] offers sequential screenings for women who [...] testing. It will require an appointment withour ultrasound tech. This is not an ultrasound performed by [...] the above symptoms, contact our office at [phone] and ask to speak with anurse. After hours, you can call doctors registry at [phone] OR call [facility] at [phone] ask to have the doctor supervisor elementary education paged. If you consider this an emergency, dial 9-5 or go to your nearest emergency department. NEED HELP? Are you dealing with a violent or abusive relationship? Are you a victim of rape or sexual assult? Call [facility] ([place]) 24 hour Crisis Hotline: 474.863.3548 or 435-676-7402. MANUAL Your Guide to a Healthy manual is now on-line. Visit [email or web address] to download your free copy documented in this encounterMercy Memorial Hospital04-09-2025 NoteHNO ID: [id number] Author: MACARENA PEREZ APRN.PUBLIC SAFETY POLICE Service: ? Author Type: Nurse Practitioner Type: [...] and LDA 2. 20 weeks gestation of ([facility]) - ICD9: V22.2, ICD10: Z3A.20 - Anatomy ultrasound today, report pending 3. Hx of preeclampsia, prior , currently ([facility]) - ICD9: V23.49, ICD10: O09.299 4. Hx of gestational diabetes in prior , currently ([facility]) - ICD9: V23.49, ICD10: O09.299, Z86.32 PTL precautions reviewed. RTO in 4 weeks or sooner as needed. Macarena Perez APRN.CNPCleveland [facility]04-09-2025 History of Present illness Narrative* Macarena [...] Supervision of high risk in second trimester ([facility]) - ICD9: V23.9, ICD10: O09.92 (primary diagnosis) - Continue PNV and LDA 2. 20 weeks gestation of ([facility]) - ICD9: V22.2, ICD10: Z3A.20 - Anatomy ultrasound today, report pending 3. Hx of preeclampsia, prior , currently ([facility]) - ICD9: V23.49, ICD10: O09.299 4. Hx of gestational diabetes in prior , currently ([facility]) - ICD9: V23.49, ICD10: O09.299, Z86.32 PTL precautions reviewed. RTO in 4 weeks or sooner as needed. Macarena Perez APRN.PUBLIC SAFETY POLICE documented in this encounterMercy Memorial Hospital04-09-2025 Instructions* Patient Instructions* Ligia Willard MA - 07/21/2024 2:31 PM EDT SEQUENTIAL SCREENINGS [facility] offers sequential screenings for women who [...] testing. It will require an appointment withour ultrasound tech. This is not an ultrasound performed by [...] the above symptoms, contact our office at [phone] and ask to speak with anurse. After hours, you can call doctors registry at [phone] OR call [facility] at [phone] ask to have the doctor supervisor elementary education paged. If you consider this an emergency, dial 9--0 or go to your nearest emergency department. NEED HELP? Are you dealing with a violent or abusive relationship? Are you a victim of rape or sexual assult? Call [facility] ([place]) 24 hour Crisis Hotline: 644.707.7864 or 181-211-4859. MANUAL Your Guide to a Healthy manual is now on-line. Visit [email or web address] to download your free copy documented in this encounterMercy Memorial Hospital03-12-2025 Progress note* Quick Notes - Dante [...] ASA declines aneuploidy screening Dante Waite M.D. [facility]03-12-2025 Miscellaneous Notes* Quick Notes - Dante [...] screening Dante Waite M.D. documented in this encounterMercy Memorial Hospital02-19-2025 Progress note* Quick Notes - Dante Waite MD - 06/02/2024 11:39 AM EST RR- Doing well overall. No VB. Taking PNV. F/u in 2 weeks or prn. D/w her aneuploidy screening and declines at this time. Cont. asa and pNV. Dante Waite MD [facility]02-19-2025 Miscellaneous Notes* Quick Notes - Dante Waite MD - 06/02/2024 11:39 AM EST RR- Doing well overall. No VB. Taking PNV. F/u in 2 weeks or prn. D/w her aneuploidy screening and declines at this time. Cont. asa and pNV. Dante Waite MD documented in this encounterMercy Memorial Hospital02-19-2025 Instructions* Patient Instructions* Milana Quintana MA - 06/02/2024 11:23 AM EST SEQUENTIAL SCREENINGS The [facility] offers sequential screenings for women who [...] testing. It will require an appointment withour ultrasound tech. This is not an ultrasound performed by [...] the above symptoms, contact our office at [phone] and ask to speak with anurse. After hours, you can call doctors registry at [phone] OR call [facility] at [phone] ask to have the doctor supervisor elementary education paged. If you consider this an emergency, dial 6-4-7 or go to your nearest emergency department. NEED HELP? Are you dealing with a violent or abusive relationship? Are you a victim of rape or sexual assult? Call [facility] ([place]) 24 hour Crisis Hotline: 841.591.4953 or 042-853-5017. MANUAL Your Guide to a Healthy manual is now on-line. Visit [email or web address] to download your free copy documented in this encounterMercy Memorial Hospital02-04-2025 Progress note* Quick Notes - Dante Waite MD - 05/18/2024 8:52 AM EST RR- doing well overall. No VB. Taking PNV. A little tired otherwise doing well. PLans to start ASA soon. Declines NIPT for now. Dante Waite MD [facility]02-04-2025 Miscellaneous Notes* Quick Notes - Dante Waite MD - 05/18/2024 8:52 AM EST RR- doing well overall. No VB. Taking PNV. A little tired otherwise doing well. PLans to start ASA soon. Declines NIPT for now. Dante Waite MD documented in this encounterMercy Memorial Hospital02-04-2025 Instructions* Patient Instructions* Marianela Campos MA - 05/18/2024 8:24 AM EST SEQUENTIAL SCREENINGS The [facility] offers sequential screenings for women who [...] testing. It will require an appointment withour ultrasound tech. This is not an ultrasound performed by [...] the above symptoms, contact our office at [phone] and ask to speak with anurse. After hours, you can call doctors registry at [phone] OR call [facility] at [phone] ask to have the doctor supervisor elementary education paged. If you consider this an emergency, dial 9--1 or go to your nearest emergency department. NEED HELP? Are you dealing with a violent or abusive relationship? Are you a victim of rape or sexual assult? Call [facility] ([place]) 24 hour Crisis Hotline: 614.873.5803 or 479-622-4917. MANUAL Your Guide to a Healthy manual is now on-line. Visit [email or web address] to download your free copy documented in this encounterMercy Memorial Hospital01-21-2025 NoteHNO ID: [id number] Author: DAYANA PERRY MD Service: ? Author Type: Physician Type: Progress Notes Filed: 05/04/2024 14:03 Note Text: The patient presents for requested ultrasound. Full report available in the Imaging tab in [facility]. Dayana Perry [facility]01-21-2025 History of Present illness Narrative* Dayana Perry MD - 05/04/2024 2:01 PM EST The patient presents for requested ultrasound. Full report available in the Imaging tab in [facility]. Dayana Perry MD documented in this encounterMercy Memorial Hospital01-21-2025 Progress note* Quick Notes - Dante Waite MD - 05/04/2024 9:13 AM EST RR- No VB/LOF. Taking pNV. D/w her ASA prophylaxis. F/u in 2 weeks or prn to check FHTs, schedule early anatomy scan. Recommend cont. exercise and follow diabetic diet to decrease risk GDM. Dante Vargas MD [facility]01-21-2025 Miscellaneous Notes* Quick Notes - Dante Waite MD - 05/04/2024 9:13 AM EST RR- No VB/LOF. Taking pNV. D/w her ASA prophylaxis. F/u in 2 weeks or prn to check FHTs, schedule early anatomy scan. Recommend cont. exercise and follow diabetic diet to decrease risk GDM. Dante Vargas MD documented in this encounterMercy Memorial Hospital01-21-2025 Instructions* Patient Instructions* Milana Quintana MA - 05/04/2024 8:33 AM EST SEQUENTIAL SCREENINGS The [facility] offers sequential screenings for women who [...] testing. It will require an appointment withour ultrasound tech. This is not an ultrasound performed by [...] the above symptoms, contact our office at [phone] and ask to speak with anurse. After hours, you can call doctors registry at [phone] OR call [facility] at [phone] ask to have the doctor supervisor elementary education paged. If you consider this an emergency, dial 9--1 or go to your nearest emergency department. NEED HELP? Are you dealing with a violent or abusive relationship? Are you a victim of rape or sexual assult? Call [facility] ([place]) 24 hour Crisis Hotline: 578.509.6542 or 510-404-0430. MANUAL Your Guide to a Healthy manual is now on-line. Visit [email or web address] to download your free copy documented in this encounterMercy Memorial Hospital01-06-2025 History of Present illness Narrative* Milana Quintana MA - 04/19/2024 8:15 AM EST OB point of care ultrasound was performed. See imaging tab for details. 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 HPI: Mansi is a 34 year old [...] Status: Partner: Name: Alexis Age: 34 Occupation: Pulmonology Physician Gender: Male PAST MEDICAL HISTORY Diagnosis Date [...] discussed with the Patient or Patient's Authorized Bounty Trapper. As applicable, any other physician, advance practice provider, medical student, or other health professional student that will be observing or involved in the sensitive examination for educational or training purposes was discussed with the Patient or Authorized Bounty Trapper. The Patient or Authorized Bounty Trapper has agreed to proceed with the sensitive [...] Your guide to a health and the [employer] Police Lieutenant. Reviewed midwifery and county program technician services that are available. 2) Screening: Hemoglobin [...] prn. Mai Blanton APRN.CNP documented in this encounterMercy Memorial Hospital01-06-2025 NoteHNO ID: [id number] Author: MILANA QUINTANA MA Service: ? Author Type: Rn Baby Type: Progress Notes Filed: 04/19/2024 09:03 Note Text: OB point of care ultrasound was performed. See imaging tab for details. [facility]2025 NoteHNO ID: [id number] Author: MAI BLANTON APRN.PUBLIC SAFETY POLICE Service: ? Author Type: Nurse Practitioner Type: Progress Notes Filed: 04/19/2024 09:03 Note Text: INITIAL OB ASSESSMENT Patient declined canine service teacher. HPI: Mansi is a 34 year old [...] Status: Partner: Name: Alexis Age: 34 Occupation: Pulmonology Physician Gender: Male PAST MEDICAL HISTORY Diagnosis Date [...] HEENT: Negative for: Hea (more content not included)...[facility]01-06-2025 Instructions* Patient Instructions* Carole Bae LPN - 04/19/2024 8:03 AM EST Please select the following link to access the [facility] Your Guide to a Healthy . [email or web address] documented in this encounterMercy Memorial Hospital12-11-2024 Telephone encounter Note * Telephone Encounter - Adelaide Altamirano RN - 03/24/2024 10:57 AM EST New OB appointment is not until 04/19/24. [facility]12-11-2024 Miscellaneous Notes* Telephone Encounter - Adelaide Altamirano RN - 03/24/2024 10:57 AM EST New OB appointment is not until 04/19/24. documented in this encounterMercy Memorial Hospital06-28-2024 History of Present illness Narrative* Dante Waite MD - 10/10/2023 1:37 PM EDT [employer] Launch Commander offered: Patient declines. Mansi is a 33 [...] L2 SAB0 IAB0 Ectopic0 Multiple0 Live Births2 Stylist Assistant History LMP: 10/02/2023 (Exact Date), Unknown Age at Menarche: Age at First : Age at Menopause: Stylist Assistant History Comments: Sexual Activity: Yes; Male Contraception: [...] Grandfather Leukemia Maternal Grandfather Heart Paternal Grandmother [place] Stroke Paternal Grandmother Heart Paternal Grandfather 48 [...] external genitalia normal, normal Bartholin's glands, urethra, Mccloud's glands, no vulvar lesions, no cervical lesions, [...] needed Dante Waite MD documented in this encounterMercy Memorial Hospital06-07-2024 Telephone encounter Note * Telephone Encounter - Iztel Santiago RN - 09/19/2023 11:39 AM EDT Annual scheduled with RR 11/25/23. Requesting 90 day supply. Requested Prescriptions Pending Prescriptions Disp Refills Desogestrel-Ethinyl Estradiol (KARIVA, 28,) 0.15-0.02 mgx21 /0.01 mg x 5 per tablet 84 tablet 0 Sig: Take 1 tablet by mouth once daily. Itzel Santiago RN [facility]06-07-2024 Miscellaneous Notes* Telephone Encounter - Itzel Santiago RN - 09/19/2023 11:39 AM EDT Annual scheduled with RR 11/25/23. Requesting 90 day supply. Requested Prescriptions Pending Prescriptions Disp Refills Desogestrel-Ethinyl Estradiol (KARIVA, 28,) 0.15-0.02 mgx21 /0.01 mg x 5 per tablet 84 tablet 0 Sig: Take 1 tablet by mouth once daily. Itzel Santiago RN documented in this encounterMercy Memorial Hospital03-25-2024 Miscellaneous Notes* Telephone Encounter - Adelaide Altamirano RN - 07/07/2023 12:08 PM EDT [email or web address]. PSS: Please contact patient to schedule annual exam. Adelaide Altamirano RN documented in this encounterMercy Memorial Hospital11-27-2023 Miscellaneous Notes* Telephone Encounter - Tara Parks APRN.CNM - 03/10/2023 1:37 PM EST Order signed. Tara Parks APRN.CNM * Telephone Encounter - Mare Larios RN - 03/10/2023 10:42 AM EST UA and urine culture orders pending. documented in this encounterMercy Memorial Hospital11-24-2023 Miscellaneous Notes* Telephone Encounter - Mare Larios RN - 03/07/2023 9:29 AM EST Please review in RR's absence. Diflucan RX pending. documented in this encounterMercy Memorial Hospital06-05-2023 History of Present illness Narrative* Raimundo [...] 16, 2022 9:26 AM documented in this encounterMercy Memorial Hospital06-05-2023 History of Present illness Narrative* Best [...] mouth. (Patient not taking: Reported on 03/05/2022) Uzhrycmd-Ms-Phn-Fe-FA ( VITAMIN) tab Take 1 tablet by [...] room for further evaluation. Report sent to [facility] by ER passport. Best Lane MD documented in this encounterMercy Memorial Hospital04-25-2023 Miscellaneous Notes* Telephone Encounter - Kaila Pruitt LPN - 08/06/2022 7:39 AM EDT Pt to check with pharmacy to see if her insurance will allow more than one pack per month to be dispensed. Kaila Pruitt LPN documented in this encounterMercy Memorial Hospital03-23-2023 Miscellaneous Notes* Telephone Encounter - Dante Waite MD - 07/04/2022 8:34 AM EDT I spent 5 minutes reviewing chart, medication history, replying to patient and sending a new prescription. Dante Waite MD documented in this encounterMercy Memorial Hospital11-25-2022 Miscellaneous Notes* Telephone Encounter - Kaila [...] leandro. Alban Hooker MD documented in this encounterMercy Memorial Hospital11-23-2022 Miscellaneous Notes* Telephone Encounter - Itzel Santiago RN - 03/06/2022 10:38 AM EST Previous rx only dispensed 1 tablet. Pharmacy requesting new corrected rx. Requested Prescriptions Pending Prescriptions Disp Refills Norethindrone, Contraceptive, 0.35 mg tablet [Pharmacy Med Name: NORETHINDRONE 0.35 MG TABLET] 28 tablet 5 Sig: TAKE 1 TABLET BY MOUTH EVERY DAY Itzel Santiago RN documented in this encounterMercy Memorial Hospital11-22-2022 History of Present illness Narrative* Alban [...] L2 SAB0 IAB0 Ectopic0 Multiple0 Live Births2 Stylist Assistant History LMP: 04/06/2021 (Exact Date), Age at Menarche: Age at First : Age at Menopause: Stylist Assistant History Comments: Sexual Activity: Yes; Male Contraception: [...] Grandfather Leukemia Maternal Grandfather Heart Paternal Grandmother [place] Stroke Paternal Grandmother Heart Paternal Grandfather 48 [...] Take 1 tablet by mouth once daily. Aabwfdre-Mz-Ubc-Fe-FA ( VITAMIN) tab Take 1 tablet by [...] external genitalia normal, normal Bartholin's glands, urethra, Mccloud's glands, no vulvar lesions, no cervical lesions, [...] Low Alban Hooker MD documented in this encounterMercy Memorial Hospital11-03-2022 History of Present illness Narrative* Kasey Yang MD - 02/14/2022 10:34 AM EDT [employer] Launch Commander offered: Patient declines. VISIT Herb Moran is a 31 year old year old here for visit. Delivery Summary: ROS/ Recovery: Feeding: Breast feeding problems: None Menses since delivery: light flow Menstrual pattern prior to : Regular periods [place] since delivery: Not resumed Depression: denies symptoms [...] Grandfather Leukemia Maternal Grandfather Heart Paternal Grandmother [place] Stroke Paternal Grandmother Heart Paternal Grandfather 48 [...] external genitalia normal, normal Bartholin's glands, urethra, Mccloud's glands, no vulvar lesions, no cervical lesions, [...] PRN Kasey Perez MD documented in this encounterMercy Memorial Hospital10-06-2022 History of Present illness Narrative* Dante [...] issues Sleep: no sleep concerns, feels rested [place] since delivery: Not resumed Emotional support: Yes [...] Making Dante Waite MD documented in this encounterMercy Memorial Hospital09-24-2022 Hospital Discharge instructions Additional Instructions Date of Discharge: 01/05/22[facility] Work Phone: 1(593) 551-923309-23-2022 Miscellaneous Notes* Telephone Encounter - Itzel Santiago RN - 01/04/2022 4:41 PM EDT Patient delivered via by Dr. Waite on 01/04/22 at [facility]. See OB history. Itzel Santiago RN documented in this encounterMercy Memorial Hospital09-20-2022 Miscellaneous Notes* Quick Notes - Dante [...] AGA. Dante Waite MD documented in this encounterMercy Memorial Hospital09-20-2022 Instructions* Patient Instructions* Milana Quintana Co - 01/01/2022 11:27 AM EDT SEQUENTIAL SCREENINGS The [facility] offers sequential screenings for women who [...] testing. It will require an appointment withour ultrasound tech. This is not an ultrasound performed by [...] the above symptoms, contact our office at [phone] and ask to speak with anurse. After hours, you can call doctors registry at [phone] OR call [facility] at [phone] ask to have the doctor supervisor elementary education paged. If you consider this an emergency, dial 9--1 or go to your nearest emergency department. NEED HELP? Are you dealing with a violent or abusive relationship? Are you a victim of rape or sexual assult? Call [facility] ([place]) 24 hour Crisis Hotline: 181.692.7937 or 708-329-5510. MANUAL Your Guide to a Healthy manual is now on-line. Visit [email or web address] to download your free copy documented in this encounterMercy Memorial Hospital09-13-2022 Miscellaneous Notes* Quick Notes - Kasey [...] reviewed. Kasey Perez MD documented in this encounterMercy Memorial Hospital09-13-2022 Instructions* Patient Instructions* Nevaeh Subramanian Ma - 12/25/2021 9:16 AM EDT SEQUENTIAL SCREENINGS The [facility] offers sequential screenings for women who [...] testing. It will require an appointment withour ultrasound tech. This is not an ultrasound performed by [...] the above symptoms, contact our office at [phone] and ask to speak with anurse. After hours, you can call doctors registry at [phone] OR call [facility] at [phone] ask to have the doctor supervisor elementary education paged. If you consider this an emergency, dial 9-1-1 or go to your nearest emergency department. NEED HELP? Are you dealing with a violent or abusive relationship? Are you a victim of rape or sexual assult? Call [facility] ([place]) 24 hour Crisis Hotline: 388.370.2901 or 733-676-5366. MANUAL Your Guide to a Healthy manual is now on-line. Visit [email or web address] to download your free copy documented in this encounterMercy Memorial Hospital09-07-2022 Miscellaneous Notes* Quick Notes - Dante Waite MD - 12/19/2021 3:22 PM EDT RR- No VB/LOF. Good FM. BS log reviewed. Excellent control. Some increased pelvic pressure. Irreg ctxs. BP stable. No edema. Kick counts. F/u in 1 week. Taking iron. Dante Waite MD documented in this encounterMercy Memorial Hospital09-07-2022 Instructions* Patient Instructions* Milana Quintana Ma - 12/19/2021 3:07 PM EDT SEQUENTIAL SCREENINGS The [facility] offers sequential screenings for women who [...] testing. It will require an appointment withour ultrasound tech. This is not an ultrasound performed by [...] the above symptoms, contact our office at [phone] and ask to speak with anurse. After hours, you can call doctors registry at [phone] OR call [facility] at [phone] ask to have the doctor supervisor elementary education paged. If you consider this an emergency, dial 9-6-9 or go to your nearest emergency department. NEED HELP? Are you dealing with a violent or abusive relationship? Are you a victim of rape or sexual assult? Call [facility] ([place]) 24 hour Crisis Hotline: 399.188.2443 or 116-536-6928. MANUAL Your Guide to a Healthy manual is now on-line. Visit [email or web address] to download your free copy documented in this encounterMercy Memorial Hospital09-01-2022 Miscellaneous Notes* Quick Notes - Dante [...] . Dante Waite M.D. documented in this encounterMercy Memorial Hospital09-01-2022 Instructions* Patient Instructions* Milana Quintana Ma - 12/13/2021 11:21 AM EDT SEQUENTIAL SCREENINGS The [facility] offers sequential screenings for women who [...] testing. It will require an appointment withour ultrasound tech. This is not an ultrasound performed by [...] the above symptoms, contact our office at [phone] and ask to speak with anurse. After hours, you can call doctors registry at [phone] OR call [facility] at [phone] ask to have the doctor supervisor elementary education paged. If you consider this an emergency, dial 9-1-2 or go to your nearest emergency department. NEED HELP? Are you dealing with a violent or abusive relationship? Are you a victim of rape or sexual assult? Call [facility] ([place]) 24 hour Crisis Hotline: 663.536.6490 or 540-767-9353. MANUAL Your Guide to a Healthy manual is now on-line. Visit [email or web address] to download your free copy documented in this encounterMercy Memorial Hospital08-23-2022 History of Present illness Narrative* Sara [...] severely ill: Yes Patient denies history of Guillain-Kismet Syndrome (a severe paralytic illness): Yes Tdap Adacel injection was given without incident. See immunizations for details of immunizations administered today. VIS sheet provided: Yes Provider Dante Waite MD was present in office at time of injection. Sara Asencio MA documented in this encounterMercy Memorial Hospital08-23-2022 Miscellaneous Notes* Quick Notes - Dante [...] TDAP today.Dante Waite MD documented in this encounterMercy Memorial Hospital08-23-2022 Instructions* Patient Instructions* Milana Quintana Ma - 12/04/2021 9:50 AM EDT SEQUENTIAL SCREENINGS The [facility] offers sequential screenings for women who [...] testing. It will require an appointment withour ultrasound tech. This is not an ultrasound performed by [...] the above symptoms, contact our office at [phone] and ask to speak with anurse. After hours, you can call doctors registry at [phone] OR call [facility] at [phone] ask to have the doctor supervisor elementary education paged. If you consider this an emergency, dial 9-7-2 or go to your nearest emergency department. NEED HELP? Are you dealing with a violent or abusive relationship? Are you a victim of rape or sexual assult? Call [facility] ([place]) 24 hour Crisis Hotline: 763.523.7786 or 937-358-2050. MANUAL Your Guide to a Healthy manual is now on-line. Visit [email or web address] to download your free copy documented in this encounterMercy Memorial Hospital08-09-2022 Miscellaneous Notes* Quick Notes - Dante Waite MD - 11/20/2021 10:20 AM EDT RR_ Doing well overall. G ood FM. BS log reviewed, excellent control, continue to monitor. Check USfor growth. C ont. progesterone injections until 36 weeks. kick counts. BPstable. Cont. PNV and Saul Waite MD documented in this encounterMer[facility]08-[facility]-2022 Instructions* Patient Instructions* Milana Quintana Ma - 11/20/2021 9:49 AM EDT SEQUENTIAL SCREENINGS [facility] offers sequential screenings for women who [...] testing. It will require an appointment withour ultrasound tech. This is not an ultrasound performed by [...] the above symptoms, contact our office at [phone] and ask to speak with anurse. After hours, you can call doctors registry at [phone] OR call [facility] at [phone] ask to have the doctor supervisor elementary education paged. If you consider this an emergency, dial 8-7-3 or go to your nearest emergency department. NEED HELP? Are you dealing with a violent or abusive relationship? Are you a victim of rape or sexual assult? Call [facility] ([place]) 24 hour Crisis Hotline: 234.841.1251 or 593-348-1066. MANUAL Your Guide to a Healthy manual is now on-line. Visit [email or web address] to download your free copy documented in this encounterMercy [facility] Hospital07-27-2022 Miscellaneous Notes* Quick Notes - Dante Waiet MD - 11/07/2021 1:32 PM EDT RR- Good FM. No VB/LOF. BS log reviewed, excellent control and fastings within target now. Cont. ASA for preeclampsia prevention. Dante Waite MD documented in this encounterMercy [facility] Hospital07-27-2022 Instructions* Patient Instructions* Milana Quintana Ma - 11/07/2021 1:23 PM EDT SEQUENTIAL SCREENINGS [facility] offers sequential screenings for women who [...] testing. It will require an appointment withour ultrasound tech. This is not an ultrasound performed by [...] the above symptoms, contact our office at [phone] and ask to speak with anurse. After hours, you can call [facility] at [phone] OR call [facility] at [phone] ask to have the doctor supervisor elementary education paged. If you consider this an emergency, dial 2-8-4 or go to your nearest emergency department. NEED HELP? Are you dealing with a violent or abusive relationship? Are you a victim of rape or sexual assult? Call [facility] ([facility] 24 hour Crisis Hotline: 549.858.3199 or 883-657-0620. MANUAL Your Guide to a Healthy manual is now on-line. Visit [email or web address] to download your free copy documented in this encounterCleveland [id number] Miscellaneous Notes* Telephone Encounter - Zahira Torres APRN.CNM - 11/01/2021 4:11 PM EDT Rx signed. Zahira Torres APRN.CNM * Telephone Encounter - Adelaide Altamirano RN - 11/01/2021 3:59 PM EDT Refill request received via [employer] for patients blood sugar testing strips. Patient 29w6d. Please file pended order. Adelaide Altamirano RN documented in this encounterMercy [facility] Hospital07-06-2022 Miscellaneous Notes* Telephone Encounter - Mare [...] Thanks. Dante Waite MD documented in this encounterMercy [facility] Hospital06-30-2022 Miscellaneous Notes* Telephone Encounter - Kaila Pruitt LPN - 10/11/2021 8:46 AM EDT FMLA paperwork completed and faxed to employer, scanned into EMR and filed in [employer] suite. Kaila Pruitt LPN * Telephone Encounter - Kaila Pruitt LPN - 10/09/2021 12:27 PM EDT [place] paperwork received and completed,placed on providers desk for signature. Kaila Pruitt LPN documented in this encounterMercy Memorial Hospital06-28-2022 History of Past illness Narrative* Problem Noted Date Resolved Date Anemia during in second trimester 09/1301/17/2022 Supervision of other high risk pregnancies, firs t trimester 05/29/2021 01/17/2022 Overview: Declines board catcher at delivery. History of gestational diabe kesha [...] delivery at 36 weeks 1 day. Discussed [place]. Patient is asked to watch the video prior to her appointment with Dr. Waite May 29. TKRN Gestational diabetes mellitus, class A1 11/22/1901/17/2022 Abnormal glucose in , antepartum 201905/29/2021 Overview: 11/16/19: 3hr gtt ordered. Kasey Perez MD Acne 04/19/2011 01/17/2022 documented as of this encounter (statuses as of 01/17/2022) [facility] of Past illness Narrative* Problem Noted Date Resolved Date Anemia during in second trimester 09/1301/17/2022 Supervision of other high risk pregnancies, firs t trimester 05/29/2021 01/17/2022 Overview: Declines board catcher at delivery. History of gestational diabe kesha [...] of this encounter (statuses as of 02/14/2022) [facility] of Past illness Narrative* Problem Noted Date Resolved Date Anemia during in second trimester 09/1301/17/2022 Supervision of other high risk pregnancies, firs t trimester 05/29/2021 01/17/2022 Overview: Declines board catcher at delivery. History of gestational diabe kesha [...] delivery at 36 weeks 1 day. Discussed [place]. Patient is asked to watch the video prior to her appointment with Dr. Waite May 29. TKRN Gestational diabetes mellitus, class A1 11/22/1901/17/2022 Abnormal glucose in , antepartum 201905/29/2021 Overview: 11/16/19: 3hr gtt ordered. Kasey Perez MD Acne 04/19/2011 01/17/2022 documented as of this encounter (statuses as of 03/05/2022) [facility] of Past illness Narrative* Problem Noted Date Resolved Date Anemia during in second trimester 09/1301/17/2022 Supervision of other high risk pregnancies, firs t trimester 05/29/2021 01/17/2022 Overview: Declines board catcher at delivery. History of gestational diabe kesha [...] of this encounter (statuses as of 03/05/2022) [facility] of Past illness Narrative* Problem Noted Date Resolved Date Anemia during in second trimester 09/1301/17/2022 Supervision of other high risk pregnancies, firs t trimester 05/29/2021 01/17/2022 Overview: Declines board catcher at delivery. History of gestational diabe kesha [...] delivery at 36 weeks 1 day. Discussed [place]. Patient is asked to watch the video prior to her appointment with Dr. Waite May 29. TKRN Gestational diabetes mellitus, class A1 11/22/1901/17/2022 Abnormal glucose in , antepartum 201905/29/2021 Overview: 11/16/19: 3hr gtt ordered. Kasey Perez MD Acne 04/19/2011 01/17/2022 documented as of this encounter (statuses as of 03/06/2022) [facility] of Past illness Narrative* Problem Noted Date Resolved Date Anemia during in second trimester 09/1301/17/2022 Supervision of other high risk pregnancies, firs t trimester 05/29/2021 01/17/2022 Overview: Declines board catcher at delivery. History of gestational diabe kesha [...] delivery at 36 weeks 1 day. Discussed [place]. Patient is asked to watch the video prior to her appointment with Dr. Waite May 29. TKRN Gestational diabetes mellitus, class A1 11/22/1901/17/2022 Abnormal glucose in , antepartum 201905/29/2021 Overview: 11/16/19: 3hr gtt ordered. Kasey Perez MD Acne 04/19/2011 01/17/2022 documented as of this encounter (statuses as of 03/08/2022) [facility] Past illness Narrative* Problem Noted Date Resolved Date Anemia during in second trimester 09/1301/17/2022 Supervision of other high risk pregnancies, firs t trimester 05/29/2021 01/17/2022 Overview: Declines board catcher at delivery. History of gestational diabe kesha [...] delivery at 36 weeks 1 day. Discussed [place]. Patient is asked to watch the video prior to her appointment with Dr. Waite May 29. TKRN Gestational diabetes mellitus, class A1 11/22/1901/17/2022 Abnormal glucose in , antepartum 201905/29/2021 Overview: 11/16/19: 3hr gtt ordered. Kasey Perez MD Acne 04/19/2011 01/17/2022 documented as of this encounter (statuses as of 07/04/2022) [facility] of Past illness Narrative* Problem Noted Date Resolved Date Anemia during in second trimester 09/1301/17/2022 Supervision of other high risk pregnancies, firs t trimester 05/29/2021 01/17/2022 Overview: Declines board catcher at delivery. History of gestational diabe kesha [...] delivery at 36 weeks 1 day. Discussed [place]. Patient is asked to watch the video prior to her appointment with Dr. Waite May 29. TKRN Gestational diabetes mellitus, class A1 11/22/1901/17/2022 Abnormal glucose in , antepartum 201905/29/2021 Overview: 11/16/19: 3hr gtt ordered. Kasey Perez MD Acne 04/19/2011 01/17/2022 documented as of this encounter (statuses as of 07/29/2022) [facility] illness Narrative* Problem Noted Date Resolved Date Anemia during in second trimester 09/1301/17/2022 Supervision of other high risk pregnancies, firs t trimester 05/29/2021 01/17/2022 Overview: Declines board catcher at delivery. History of gestational diabe kesha [...] delivery at 36 weeks 1 day. Discussed [place]. Patient is asked to watch the video prior to her appointment with Dr. Waite May 29. TKRN Gestational diabetes mellitus, class A1 11/22/1901/17/2022 Abnormal glucose in , antepartum 201905/29/2021 Overview: 11/16/19: 3hr gtt ordered. Kasey Perez MD Acne 04/19/2011 01/17/2022 documented as of this encounter (statuses as of 08/06/2022) [facility] Past illness Narrative* Problem Noted Date Resolved Date Anemia during in second trimester 09/1301/17/2022 Supervision of other high risk pregnancies, firs t trimester 05/29/2021 01/17/2022 Overview: Declines board catcher at delivery. History of gestational diabe kesha [...] delivery at 36 weeks 1 day. Discussed [place]. Patient is asked to watch the video prior to her appointment with Dr. Waite May 29. TKRN Gestational diabetes mellitus, class A1 11/22/1901/17/2022 Abnormal glucose in , antepartum 201905/29/2021 Overview: 11/16/19: 3hr gtt ordered. Kasey Perez MD Acne 04/19/2011 01/17/2022 documented as of this encounter (statuses as of 09/16/2022) [facility] of [facility] illness Narrative* Problem Noted Date Diagnosed Date Resolved Date Anemia during in second trimester 10/09/2021 01/17/2022 Supervision of other high ri sk pregnancies, first trimester 05/29/2021 01/17/2022 Overview: Declines board catcher at delivery. History of gestational diabe kesha [...] delivery at 36 weeks 1 day. Discussed [place]. Patient is asked to watch the video prior to her appointment with Dr. Waite May 29. TKRN Gestational diabetes mellitus, class A1 11/22/2019 01/17/2022 Abnormal glucose in , antepartum 11/16/2019 05/29/2021 Overview: 11/16/19: 3hr gtt ordered. Kasey Perez MD Acne 04/19/2011 01/17/2022 documented as of this encounter (statuses as of 03/07/2023) [facility] of [facility] illness Narrative* Problem Noted Date Diagnosed Date Resolved Date Anemia during in second trimester 10/09/2021 01/17/2022 Supervision of other high ri sk pregnancies, first trimester 05/29/2021 01/17/2022 Overview: Declines board catcher at delivery. History of gestational diabe kesha [...] delivery at 36 weeks 1 day. Discussed [place]. Patient is asked to watch the video prior to her appointment with Dr. Waite May 29. TKRN Gestational diabetes mellitus, class A1 11/22/2019 01/17/2022 Abnormal glucose in , antepartum 11/16/2019 05/29/2021 Overview: 11/16/19: 3hr gtt ordered. Kasey Perez MD Acne 04/19/2011 01/17/2022 documented as of this encounter (statuses as of 03/11/2023) [facility] illness Narrative* Problem Noted Date Diagnosed Date Resolved Date Anemia during in second trimester 10/09/2021 01/17/2022 Supervision of other high ri sk pregnancies, first trimester 05/29/2021 01/17/2022 Overview: Declines board catcher at delivery. History of gestational diabe kesha [...] delivery at 36 weeks 1 day. Discussed [place]. Patient is asked to watch the video prior to her appointment with Dr. Waite May 29. TKRN Gestational diabetes mellitus, class A1 11/22/2019 01/17/2022 Abnormal glucose in , antepartum 11/16/2019 05/29/2021 Overview: 11/16/19: 3hr gtt ordered. Kasey Perez MD Acne 04/19/2011 01/17/2022 documented as of this encounter (statuses as of 07/07/2023) [facility] Miscellaneous Notes* Telephone Encounter - Itzel [...] hr and start fe. documented in this encounterMercy Memorial Hospital06-28-2022 Miscellaneous Notes* Quick Notes - Dante Waite MD - 10/09/2021 10:38 AM EDT RR_ No VB/LOF. Good FM. 28 week labs today. Plans OCPs for contraception. TDAP next visit. Planningcovid booster. Declines LARC at delivery. Plans . F/u in 2-3 weeks or prn. Dante Waite MD documented in this encounterMercy [facility] Hospital06-28-2022 Instructions* Patient Instructions* Milana Quintana Ma - 10/09/2021 9:58 AM EDT SEQUENTIAL SCREENINGS [facility] offers sequential screenings for women who [...] testing. It will require an appointment withour ultrasound tech. This is not an ultrasound performed by [...] the above symptoms, contact our office at [phone] and ask to speak with anurse. After hours, you can call doctors registry at [phone] OR call [facility] at [phone] ask to have the doctor supervisor elementary education paged. If you consider this an emergency, dial 9--7 or go to your nearest emergency department. NEED HELP? Are you dealing with a violent or abusive relationship? Are you a victim of rape or sexual assult? Call [facility] ([place]) 24 hour Crisis Hotline: 264.900.5851 or 224-176-6327. MANUAL Your Guide to a Healthy manual is now on-line. Visit [email or web address] to download your free copy documented in this encounterMercy Memorial Hospital05-31-2022 Miscellaneous Notes* Quick Notes - Dante Waite MD - 09/11/2021 10:02 AM EDT RR- No VB/LOF. Good FM. On ASA and progesterone. Some constipation but miralax every other day helps F/u in 4 weeks or prn. 28 week albs next visit. Dante Waite MD documented in this encounterMercy Memorial Hospital05-31-2022 Instructions* Patient Instructions* Milana Quintana Ma - 09/11/2021 9:37 AM EDT SEQUENTIAL SCREENINGS [facility] offers sequential screenings for women who [...] testing. It will require an appointment withour ultrasound tech. This is not an ultrasound performed by [...] the above symptoms, contact our office at [phone] and ask to speak with anurse. After hours, you can call doctors registry at [phone] OR call [facility] at [phone] ask to have the doctor supervisor elementary education paged. If you consider this an emergency, dial 9--1 or go to your nearest emergency department. NEED HELP? Are you dealing with a violent or abusive relationship? Are you a victim of rape or sexual assult? Call [facility] ([place]) 24 hour Crisis Hotline: 717.171.1560 or 104-609-9849. MANUAL Your Guide to a Healthy manual is now on-line. Visit [email or web address] to download your free copy documented in this encounterMercy [facility] Hospital05-06-2022 Miscellaneous Notes* Telephone Encounter - Dante Waite MD - 08/17/2021 10:45 AM EDT filed. Thanks. Dante Waite MD * Telephone Encounter - Mare Larios RN - 08/17/2021 10:23 AM EDT 19w0d Patient seen in office today for Progesterone education and administration. Please file pending CAMorder. Thank you. Mare Larios RN documented in this encounterMercy Memorial Hospital05-06-2022 History of Present illness Narrative* Mare [...] All questions answered. Handouts given. Dose: 250mg/ml Ship Ceiler: Amneal Lot #: [id number] Expiration Date: 07/2022 Site: right upper quadrant gluteus Verified by GISSELLE Cao The date of the last injection was today The date due for the next injection is one week Provider Dante Waite MD was present in office at time of injection Mare Larios RN documented in this encounterMercy Memorial Hospital05-02-2022 Miscellaneous Notes* Quick Notes - Dante [...] prn. Dante Waite MD documented in this encounterMercy Memorial Hospital05-02-2022 Instructions* Patient Instructions* Mary Bonilla Ma - 08/13/2021 9:35 AM EDT SEQUENTIAL SCREENINGS [facility] offers sequential screenings for women who [...] testing. It will require an appointment withour ultrasound tech. This is not an ultrasound performed by [...] the above symptoms, contact our office at [phone] and ask to speak with anurse. After hours, you can call doctors registry at [phone] OR call [facility] at [phone] ask to have the doctor supervisor elementary education paged. If you consider this an emergency, dial 9-1-0 or go to your nearest emergency department. NEED HELP? Are you dealing with a violent or abusive relationship? Are you a victim of rape or sexual assult? Call [facility] ([place]) 24 hour Crisis Hotline: 790.598.4797 or 363-451-8901. MANUAL Your Guide to a Healthy manual is now on-line. Visit [email or web address] to download your free copy documented in this encounterMercy Memorial Hospital04-26-2022 Miscellaneous Notes* Telephone Encounter - Adelaide Altamirano RN - 08/07/2021 8:41 AM EDT Patient still has not received her shipment. Can you check into this? Adelaide Altamirano RN documented in this encounterMercy Memorial Hospital04-08-2022 Miscellaneous Notes* Quick Notes - Dante Waite MD - 07/20/2021 10:05 AM EDT RR- No VB/LOF. No flutters yet. Anatomy uS scheduled. On ASA and taking PNV. Dante Waite MD documented in this encounterMercy Memorial Hospital04-08-2022 Instructions* Patient Instructions* Milana Quintana Ma - 07/20/2021 9:38 AM EDT SEQUENTIAL SCREENINGS [facility] offers sequential screenings for women who [...] testing. It will require an appointment withour ultrasound tech. This is not an ultrasound performed by [...] the above symptoms, contact our office at [phone] and ask to speak with anurse. After hours, you can call doctors registry at [phone] OR call [facility] at [phone] ask to have the doctor supervisor elementary education paged. If you consider this an emergency, dial 9-1-3 or go to your nearest emergency department. NEED HELP? Are you dealing with a violent or abusive relationship? Are you a victim of rape or sexual assult? Call [facility] ([facility] 24 hour Crisis Hotline: 718.980.2288 or 512-521-2873. MANUAL Your Guide to a Healthy manual is now on-line. Visit [email or web address] to download your free copy documented in this encounterMercy Memorial Hospital04-05-2022 Miscellaneous Notes* Telephone Encounter - Isatu Zamora RN - 07/17/2021 9:40 AM EDT Form faxed * Telephone Encounter - Isatu Zamora RN - 07/17/2021 8:05 AM EDT Received [employer] form for Linda for Dr Narinder guerra. Please fax to number on front of form after signature is obtained documented in this encounterMercy Memorial Hospital02-10-2022 History of Past illness Narrative* Problem [...] of this encounter (statuses as of 10/17/2021) [facility] of [facility] Narrative* Problem [...] of this encounter (statuses as of 11/01/2021) [facility] of [facility] illness Narrative* Problem [...] of this encounter (statuses as of 11/07/2021) [facility] of [facility] illness Narrative* Problem [...] of this encounter (statuses as of 11/20/2021) [facility] of [facility] illness Narrative* Problem [...] of this encounter (statuses as of 12/04/2021) [facility] of [facility] illness Narrative* Problem [...] of this encounter (statuses as of 12/04/2021) [facility] of [facility] illness Narrative* Problem [...] of this encounter (statuses as of 12/13/2021) [facility] of [facility] illness Narrative* Problem [...] of this encounter (statuses as of 12/19/2021) [facility] illness Narrative* Problem [...] of this encounter (statuses as of 12/25/2021) [facility] illness Narrative* Problem [...] of this encounter (statuses as of 01/02/2022) [facility] of [facility] illness Narrative* Problem [...] of this encounter (statuses as of 01/04/2022) [facility] of [facility] Narrative* Problem Noted Date Resolved Date Gestational diabetes mellitus, class A1 11/22/19 20 05/29/2021 Abnormal glucose in , antepartum 201905/29/2021 Overview: 11/16/19: 3hr gtt ordered. Kasey Perez MD documented as of this encounter (statuses as of 07/17/2021) [facility] of [facility] illness Narrative* Problem Noted Date Resolved Date Gestational diabetes mellitus, class A1 11/22/1905/29/2021 Abnormal glucose in , antepartum 201905/29/2021 Overview: 11/16/19: 3hr gtt ordered. Kasey Perez MD documented as of this encounter (statuses as of 07/20/2021) [facility] of [facility] illness Narrative* Problem Noted Date Resolved Date Gestational diabetes mellitus, class A1 11/22/19 20 05/29/2021 Abnormal glucose in , antepartum 201905/29/2021 Overview: 11/16/19: 3hr gtt ordered. Kasey Perez MD documented as of this encounter (statuses as of 08/07/2021) [address] History of Past illness Narrative* Problem Noted Date Resolved Date Gestational diabetes mellitus, class A1 11/22/1905/29/2021 Abnormal glucose in , antepartum 201905/29/2021 Overview: 11/16/19: 3hr gtt ordered. Kasey Perez MD documented as of this encounter (statuses as of 08/13/2021) [address] History of Past illness Narrative* Problem Noted Date Resolved Date Gestational diabetes mellitus, class A1 11/22/1905/29/2021 Abnormal glucose in , antepartum 201905/29/2021 Overview: 11/16/19: 3hr gtt ordered. Kasey Perez MD documented as of this encounter (statuses as of 08/13/2021) [place] [address]10[address]2020 History of Past illness Narrative* Problem Noted Date Resolved Date Gestational diabetes mellitus, class A1 11/22/1905/29/2021 Abnormal glucose in , antepartum 201905/29/2021 Overview: 11/16/19: 3hr gtt ordered. Kasey Perez MD documented as of this encounter (statuses as of 08/15/2021) [place] [address] History of Past illness Narrative* Problem Noted Date Resolved Date Gestational diabetes mellitus, class A1 11/22/1905/29/2021 Abnormal glucose in , antepartum 201905/29/2021 Overview: 11/16/19: 3hr gtt ordered. Kasey Perez MD documented as of this encounter (statuses as of 08/17/2021) [address] History of Past illness Narrative* Problem Noted Date Resolved Date Gestational diabetes mellitus, class A1 11/22/1905/29/2021 Abnormal glucose in , antepartum 201905/29/2021 Overview: 11/16/19: 3hr gtt ordered. Kasey Perez MD documented as of this encounter (statuses as of 09/11/2021) [address] History of Past illness Narrative* Problem Noted Date Resolved Date Gestational diabetes mellitus, class A1 11/22/1905/29/2021 Abnormal glucose in , antepartum 201905/29/2021 Overview: 11/16/19: 3hr gtt ordered. Kasey Perez MD documented as of this encounter (statuses as of 09/17/2021) [address] History of Past illness Narrative* Problem Noted Date Resolved Date Gestational diabetes mellitus, class A1 11/22/1905/29/2021 Abnormal glucose in , antepartum 201905/29/2021 Overview: 11/16/19: 3hr gtt ordered. Kasey Perez MD documented as of this encounter (statuses as of 10/09/2021) [address] History of Past illness Narrative* Problem Noted Date Resolved Date Gestational diabetes mellitus, class A1 11/22/1905/29/2021 Abnormal glucose in , antepartum 201905/29/2021 Overview: 11/16/19: 3hr gtt ordered. Kasey Perez MD documented as of this encounter (statuses as of 10/09/2021) [address] History of Past illness Narrative* Problem Noted Date Resolved Date Gestational diabetes mellitus, class A1 11/22/1905/29/2021 Abnormal glucose in , antepartum 201905/29/2021 Overview: 8/4/20: 3hr gtt ordered. Kasey Perez MD documented as of this encounter (statuses as of 10/11/2021) [facility] History of Past illness Narrative* Problem Noted Date Resolved Date Gestational diabetes mellitus, class A1 11/22/19 20 05/29/2021 Abnormal glucose in , antepartum 201905/29/2021 Overview: 11/16/19: 3hr gtt ordered. Kasey Perez MD documented as of this encounter (statuses as of 10/16/2021) [facility] Zelaya [facility] September 16, 2022 10:47am Note Date/Time September 16, 2022 10:07 am [facility] Medical Records Department [address] [place] [address] Emergency Department Summary 09/16/22 MR#: [id number] Acct: [id number] Name: HERB MORAN Rep #:[id number] : 1990 32 From: Leonel Zelaya MD [...] chest pain. It is sharp and stabbing [facility] Medical History (Updated 09/16/22 @ 10:46 by [...] about a pulmonary embolism, she traveled to [place] and has pleuritic chest pain. This is [...] 81.2 H Lymph % (Auto) 13.7 L Christian % (Auto) 4.0 Eos % (Auto) 0.5 [...] rhythm with a rate of 84. Normal CO and QTc intervals. No ischemic changes. Normal [...] your Primary Care Provider. Call [facility] ([phone]) or report to the closest Emergency Room. Call 911 if necessary. 09/16/22 1047 <Electronically signed by Leonel Zelaya MD> Cosigner Signature (if applicable): CC: Dr. Kathy Vyas MD ~ Signed [facility] Work Phone: Evaluation note* Diagnosis 15 weeks gestation of - Primary state, incidental Encounter for supervision of other normal in second trimester [facility] Diagnosis Encounter for anatomic survey- Primary 18 weeks gestation of state, incidental [facility] Encounter for supervision of other normal in second trimester- Primary 18 weeks gestation of state, incidental [facility] History of delivery, currently - Primary with history of pre-term labor [facility] Diagnosis 22 weeks gestation of - Primary state, incidental History of delivery, currently with history of pre-term labor Encounter for supervision of other normal in second trimester [facility] Diagnosis 26 weeks gestation of - Primary state, incidental History of delivery, currently with history of pre-term labor Encounter for supervision of other normal in second trimester [facility]* Diagnosis Abnormal glucose in , antepartum- Primary Abnormal maternal glucose tolerance, antepartum [facility] Diagnosis Abnormal maternal glucose tolerance, antepartum- Primary [facility] Diagnosis Abnormal maternal glucose tolerance, antepartum [facility] Diagnosis 30 weeks gestation of - Primary state, incidental Diet controlled gestational diabetes mellitus (GDM) in third trimester [facility] Diagnosis Diet controlled gestational diabetes mellitus (GDM) in third trimester- Primary 32 weeks gestation of state, incidental Supervision of other high risk pregnancies, third trimester [facility]* Diagnosis Gestational diabetes mellitus, class A1- Primary Abnormal maternal glucose tolerance, complicating , childbirth, or the puerperium, unspecified as to episode of care 34 weeks gestation of state, incidental [facility]* Diagnosis Diet controlled gestational diabetes mellitus (GDM) in third trimester- Primary 34 weeks gestation of state, incidental Need for Tdap vaccination Need for prophylactic vaccination with combined enutytxuum-rgsllms-uqiudnhhz (DTP) vaccine documented [facility] this [facility] noteNo assessment information availableWMer[facility] Work Phone: Evaluation note* Diagnosis 35 weeks gestation of - Primary state, incidental Diet controlled gestational diabetes mellitus (GDM) in third trimester Supervision of other high risk pregnancies, first trimester [facility] Diagnosis 36 weeks gestation of - Primary state, incidental Diet controlled gestational diabetes mellitus (GDM) in third trimester Supervision of other high risk pregnancies, first trimester [facility]* Diagnosis Gestational diabetes mellitus, class A1- Primary Abnormal maternal glucose tolerance, complicating , childbirth, or the puerperium, unspecified as to episode of care Anemia during in second trimester Hx of preeclampsia, prior , currently with other poor obstetric history 37 weeks gestation of state, incidental [facility]* Diagnosis 38 weeks gestation of - Primary state, incidental Gestational diabetes mellitus, class A1 Abnormal maternal glucose tolerance, complicating , childbirth, or the puerperium, unspecified as to episode of care Hx of preeclampsia, prior , currently with other poor obstetric history [facility] Diagnosis Onset Date Resolution Status 34 weeks gestation of acute Fall at home acute 39 weeks gestation of acute GDM, class A1 acute Multiparity acute (spontaneous vaginal delivery) acute [facility] Work Phone: Evaluation note* Diagnosis Routine follow-up- Primary [facility]* Diagnosis care and examination- Primary Routine follow-up [facility] Diagnosis Vaginal discharge- Primary Leukorrhea, not specified as infective Vaginal odor Unspecified symptom associated with female genital organs [facility]* Diagnosis Acute cough- Primary Discomfort in chest Other chest pain LEDBETTER (dyspnea on exertion) Other dyspnea and respiratory abnormality [facility]* Diagnosis Acute vaginitis- Primary Vaginitis and vulvovaginitis, unspecified [facility]* Diagnosis Dysuria- Primary [facility]* Diagnosis Encounter for gynecological examination (general) (routine) without abnormal findings- Primary [facility]* Diagnosis Acute cough LEDBETTER (dyspnea on exertion) Other dyspnea and respiratory abnormality [facility]* Diagnosis with uncertain dates, antepartum- Primary state, incidental Encounter for supervision of normal in multigravida 7 weeks gestation of state, incidental Hx of preeclampsia, prior , currently with other poor obstetric history [facility]* Diagnosis Encounter for supervision of normal in multigravida- Primary Hx of preeclampsia, prior , currently with other poor obstetric history 9 weeks gestation of state, incidental [facility]* Diagnosis size consistent with dates during in first trimester- Primary 9 weeks gestation of state, incidental [facility]* Diagnosis Encounter for supervision of normal in multigravida- Primary Hx of preeclampsia, prior , currently with other poor obstetric history 11 weeks gestation of state, incidental [facility]* Diagnosis Hx of preeclampsia, prior , currently - Primary with other poor obstetric history Encounter for supervision of normal in multigravida 13 weeks gestation of state, incidental [facility]* Diagnosis Encounter for screening for malformation using ultrasound- Primary 13 weeks gestation of state, incidental documented in this encounter [facility] note* Diagnosis Encounter for supervision of normal [...] normal in multigravida documented in this encounter [facility] note* Diagnosis Encounter for supervision of normal in multigravida (HCC)- Primary Hx of preeclampsia, prior , currently ([facility]) with other poor obstetric history 16 weeks gestation of ([facility]) state, incidental Supervision of high risk in second trimester ([facility])- Primary Unspecified high-risk 20 weeks gestation of ([facility]) state, incidental Hx of preeclampsia, prior , currently (HCC) with other poor obstetric history Hx of gestational diabetes in prior , currently ([facility]) with other poor obstetric history documented in this encounter [facility] note* Diagnosis Encounter for supervision of normal in multigravida (HCC)- Primary Hx of preeclampsia, prior , currently (HCC) with other poor obstetric history 16 weeks gestation of ([facility]) state, incidental Supervision of high risk in second trimester (HCC)- Primary Unspecified high-risk 24 weeks gestation of ([facility]) state, incidental Screening for diabetes mellitus * Assessment & Plan Note - Dante Waite MD - 08/18/2024 8:35 AM EDT Associated Problem(s): Supervision of high risk in second trimester (HCC) documented in this encounter [facility] note* Diagnosis Encounter for supervision of normal in multigravida ([facility])- Primary Hx of preeclampsia, prior , currently ([facility]) with other poor obstetric history 16 weeks gestation of ([facility]) state, incidental Supervision of high risk in second trimester ([facility])- Primary Unspecified high-risk 24 weeks gestation of ([facility]) state, incidental Screening for diabetes mellitus Supervision of high risk in third trimester ([facility])- Primary Unspecified high-risk 28 weeks gestation of ([facility]) state, incidental Need for vaccination Need for prophylactic vaccination and inoculation against unspecified single disease documented in this encounter [facility] note* Diagnosis Encounter for supervision of normal in multigravida ([facility])- Primary Hx of preeclampsia, prior , currently ([facility]) with other poor obstetric history 16 weeks gestation of ([facility]) state, incidental Supervision of high risk in second trimester ([facility])- Primary Unspecified high-risk 24 weeks gestation of ([facility]) state, incidental Screening for diabetes mellitus Supervision of high risk in third trimester ([facility])- Primary Unspecified high-risk 30 weeks gestation of ([facility]) state, incidental Hx of preeclampsia, prior , currently ([facility]) with other poor obstetric history Hx of gestational diabetes in prior , currently ([facility]) with other poor obstetric history Anemia during in third trimester ([facility]) Urinary frequency Fever, unspecified fever cause documented in this encounter [facility] note* Diagnosis Encounter for supervision of normal in multigravida ([facility])- Primary Hx of preeclampsia, prior , currently ([facility]) with other poor obstetric history 16 weeks gestation of ([facility]) state, incidental Supervision of high risk in second trimester ([facility])- Primary Unspecified high-risk 24 weeks gestation of ([facility]) state, incidental Screening for diabetes mellitus Supervision of high risk in third trimester ([facility])- Primary Unspecified high-risk Hx of preeclampsia, prior , currently ([facility]) with other poor obstetric history Anemia during in third trimester ([facility]) 32 weeks gestation of ([facility]) state, incidental * Assessment & Plan Note - Dante Waite MD - 10/13/2024 8:45 AM EDT Associated Problem(s): Hx of preeclampsia, prior , currently ([facility]) bp stable Orders: COMPLETE BLOOD COUNT; Future * Assessment & Plan Note - Dante Waite MD - 10/13/2024 8:45 AM EDT Associated Problem(s): Anemia during in third trimester ([facility]) Orders: COMPLETE BLOOD COUNT; Future [facility]* Diagnosis Encounter for supervision of normal in multigravida ([facility])- Primary Hx of preeclampsia, prior , currently ([facility]) with other poor obstetric history 16 weeks gestation of ([facility]) state, incidental Supervision of high risk in second trimester ([facility])- Primary Unspecified high-risk 24 weeks gestation of ([facility]) state, incidental Screening for diabetes mellitus Supervision of high risk in third trimester ([facility])- Primary Unspecified high-risk Hx of preeclampsia, prior , currently ([facility]) with other poor obstetric history Anemia during in third trimester ([facility]) 32 weeks gestation of ([facility]) state, incidental Supervision of high risk in third trimester ([facility])- Primary Unspecified high-risk Hx of preeclampsia, prior , currently ([facility]) with other poor obstetric history Anemia during in third trimester ([facility]) 34 weeks gestation of ([facility]) state, incidental [facility]* Diagnosis Encounter for supervision of normal in multigravida ([facility])- Primary Hx of preeclampsia, prior , currently ([facility]) with other poor obstetric history 16 weeks gestation of ([facility]) state, incidental Supervision of high risk in second trimester ([facility])- Primary Unspecified high-risk 24 weeks gestation of ([facility]) state, incidental Screening for diabetes mellitus Supervision of high risk in third trimester ([facility])- Primary Unspecified high-risk Hx of preeclampsia, prior , currently ([facility]) with other poor obstetric history Anemia during in third trimester ([facility]) 32 weeks gestation of ([facility]) state, incidental Supervision of high risk in third trimester ([facility])- Primary Unspecified high-risk Hx of preeclampsia, prior , currently ([facility]) with other poor obstetric history 36 weeks gestation of ([facility]) state, incidental Breech presentation with problem, single or unspecified fetus ([facility]) * Assessment & Plan Note - Dante Waite MD - 11/10/2024 10:57 AM EDT Associated Problem(s): Hx of preeclampsia, prior , currently ([facility]) bp stable, call for signs/symptoms of preeclampsia Orders: URINE OB DIP B/O ROUTINE, GROUP B STREPTOCOCCUS BY PCR * Assessment & Plan Note - Dante Waite MD - 11/10/2024 10:57 AM EDT Associated Problem(s): Breech presentation with problem ([facility]) r/b/a to ECV reviewed, desires to attempt if still breech next week. [facility] Diagnosis Encounter for supervision of normal in multigravida ([facility])- Primary Hx of preeclampsia, prior , currently ([facility]) with other poor obstetric history 16 weeks gestation of ([facility]) state, incidental Supervision of high risk in second trimester ([facility])- Primary Unspecified high-risk 24 weeks gestation of ([facility]) state, incidental Screening for diabetes mellitus Supervision of high risk in third trimester ([facility])- Primary Unspecified high-risk Hx of preeclampsia, prior , currently ([facility]) with other poor obstetric history Anemia during in third trimester ([facility]) 32 weeks gestation of ([facility]) state, incidental Supervision of high risk in third trimester ([facility])- Primary Unspecified high-risk Hx of preeclampsia, prior , currently ([facility]) with other poor obstetric history 36 weeks gestation of ([facility]) state, incidental Breech presentation with problem, single or unspecified fetus ([facility]) Supervision of high risk in third trimester ([facility])- Primary Unspecified high-risk Hx of preeclampsia, prior , currently ([facility]) with other poor obstetric history Breech presentation with problem, single or unspecified fetus ([facility]) 36 weeks gestation of ([facility]) state, incidental Anemia during in third trimester ([facility]) documented in this encounter [facility] note* Diagnosis Encounter for supervision of normal in multigravida ([facility])- Primary Hx of preeclampsia, prior , currently ([facility]) with other poor obstetric history 16 weeks gestation of ([facility]) state, incidental Supervision of high risk in second trimester ([facility])- Primary Unspecified high-risk 24 weeks gestation of ([facility]) state, incidental Screening for diabetes mellitus Supervision of high risk in third trimester ([facility])- Primary Unspecified high-risk Hx of preeclampsia, prior , currently ([facility]) with other poor obstetric history Anemia during in third trimester ([facility]) 32 weeks gestation of ([facility]) state, incidental Supervision of high risk in third trimester ([facility])- Primary Unspecified high-risk Hx of preeclampsia, prior , currently ([facility]) with other poor obstetric history 36 weeks gestation of ([facility]) state, incidental Breech presentation with problem, single or unspecified fetus ([facility]) 37 weeks gestation of ([facility])- Primary state, incidental Supervision of high risk in third trimester ([facility]) Unspecified high-risk documented in this encounter [facility] note* Diagnosis Encounter for supervision of normal in multigravida ([facility])- Primary Hx of preeclampsia, prior , currently ([facility]) with other poor obstetric history 16 weeks gestation of ([facility]) state, incidental Supervision of high risk in second trimester ([facility])- Primary Unspecified high-risk 24 weeks gestation of ([facility]) state, incidental Screening for diabetes mellitus Supervision of high risk in third trimester ([facility])- Primary Unspecified high-risk Hx of preeclampsia, prior , currently ([facility]) with other poor obstetric history Anemia during in third trimester ([facility]) 32 weeks gestation of ([facility]) state, incidental Supervision of high risk in third trimester (HCC)- Primary Unspecified high-risk Hx of preeclampsia, prior , currently (HCC) with other poor obstetric history 36 weeks gestation of ([facility]) state, incidental Breech presentation with problem, single or unspecified fetus (HCC) Supervision of high risk in third trimester (HCC)- Primary Unspecified high-risk Hx of preeclampsia, prior , currently (HCC) with other poor obstetric history Breech presentation with problem, single or unspecified fetus (HCC) Anemia during in third trimester (HCC) 38 weeks gestation of ([facility]) state, incidental * Assessment & Plan Note - Kasey Martines MD - 11/24/2024 10:07 AM EDTAssociated Problem(s): Hx of preeclampsia, prior , currently ([facility]) Orders: URINE OB DIP B/O * Assessment & Plan Note - Kasey Martines MD - 11/24/2024 10:07 AM EDTAssociated Problem(s): Breech presentation with problem ([facility]) Planned cs Orders: URINE OB DIP B/O * Assessment & Plan Note - Kasey Martines MD - 11/24/2024 10:07 AM EDTAssociated Problem(s): Anemia during in third trimester ([facility]) Continue PO iron Orders: URINE OB DIP B/O [facility] Additional Instructions Keep next follow up appointment.[facility] Work Phone: Progress note Author Alessandra Clemens [facility] Note Date/Time November 15, 2024 6:5 7pm [facility] Medical Records Department [address] [place] [address] Progress Note - OBGYN 11/15/241851 MR#: [id number] Acct: [id number] Name: HERB MORAN Rep #:[id number] : 1990 34 From: Alessandra Clemens DO PCP: Dr. Kathy Vyas MD Status:REG [facility] Location: [place] [address] Subjective Subjective Patient has been having contractions [...] Cosigner Signature (if applicable): CC: ~ Signed [facility] Diagnostic Procedure Only (Routine) - Authorized Specialty Diagnoses / Procedures Referred By Contac t Referred To Contact [facility] Diagnoses Diet controlled gestational diabetes mellitus (GDM) in third trimester 32 weeks gestation of Supervision of other high risk pregnancies, third trimester Procedures OBSTETRIC ULTRASOUND WHI US PREG UTERUS AFTER 1ST TRIMEST GESTATION Dante Waite MD [address] [place] [address] [address] Referral ID Status Reason Start Date Expiration Date Visits Requested Visits Authorized [id number] Authorized Auto-Generat ed Referral 11/20/2021 11/20/2022 [facility] Diagnostic Procedure Only (Routine) - Authorized Specialty Diagnoses / Procedures Referred By Contac t Referred To Contact [facility] Diagnoses 7 weeks gestation of Procedures OBSTETRIC ULTRASOUND WHI US PREG UTERUS AFTER 1ST TRIMEST GESTATION Mai Blanton APRN.CNP [address] [place] [address] [address] Referral ID Status Reason Start Date Expiration Date Visits Requested Visits Authorized [id number] Authorized Auto-Generat ed Referral 04/19/2024 04/19/2025 1 1 [place] for referral (narrative)* Diagnostic Procedure Only (Routine) - Authorized Specialty Diagnoses / Procedures Referred By Contac t Referred To Contact [facility] Diagnoses Encounter for supervision of normal in multigravida Hx of preeclampsia, prior , currently 9 weeks gestation of Procedures OBSTETRIC ULTRASOUND WHI US PREG UTERUS AFTER 1ST TRIMEST GESTATION Dante Waite MD [address] [place] [address] [facility] [id number] [place] [address] Referral ID Status Reason Start Date Expiration Date Visits Requested Visits Authorized [id number] Authorized Auto-Generat ed Referral 05/04/2024 05/04/2025 1 1 * Diagnostic Procedure Only (Routine) - Authorized Specialty Diagnoses / Procedures Referred By Ana t Referred To Contact [facility] Diagnoses Encounter for supervision of normal in multigravida Hx of preeclampsia, prior , currently 9 weeks gestation of Procedures OBSTETRIC ULTRASOUND WHI US PREG UTERUS AFTER 1ST TRIMEST GESTATION Dante Waite MD [address] [place] [address] [place] [address] [address] Referral ID Status Reason Start Date Expiration Date Visits Requested Visits Authorized [id number] Authorized Auto-Generat ed Referral 05/04/2024 05/04/2025 1 1 [facility]ative)No reason for referral information availableWMercy Health [facility] Work Phone: Reason for visit Narrative* Diagnostic Procedure Only (Routine) - Closed Specialty Diagnoses / Procedures Referred By Ana dennis Referred To Contact [facility] Diagnoses 7 weeks gestation of Procedures OBSTETRIC ULTRASOUND WHI US PREG UTERUS AFTER 1ST TRIMEST GESTATION Mai Blanton APRN.[employer] [address] [place] [address] [address] Referral ID Status Reason Start Date Expiration Date V isits Requested Visits Authorized [id number] Closed Auto-Generate d Referral 04/19/2024 04/19/2025 1 1 [facility] Medications Administered Section Inactive Administered Medications [...] No January 10, 2020 7:37am Power of Emr Specialist No December 7:37am Advance Directive Response Recorded Date/ Time Name of Medical Power of Emr Specialist Alexis Dean January 04, 2022 7:26am Living Will Yes January 04, 2022 7:26am Power of Emr Specialist Yes December 7:26am Advance Directive Response Recorded Date/ Time Living Will Yes September 16, 2022 9 :55am Power of Emr Specialist Yes September 16, 2022 9:55am Name of Medical Power of Emr Specialist ALEXIS MORAN AND ТАТЬЯНА WILLIS September 16, [...] or prosecute any alcohol or drug abuse patient.[facility] HospitalIn the event this information is protected by the Federal Confidentiality of Alcohol and Drug Abuse Patient Records regulations: The Federal rules restrict any use of the information to criminally investigate or prosecute any alcohol or drug abuse patient.[facility] HospitalIn the event this information is protected by the Federal Confidentiality of Alcohol and Drug Abuse Patient Records regulations: The Federal rules restrict any use of the information to criminally investigate or prosecute any alcohol or drug abuse patient.[facility] HospitalIn the event this information is protected by the Federal Confidentiality of Alcohol and Drug Abuse Patient Records regulations: The Federal rules restrict any use of the information to criminally investigate or prosecute any alcohol or drug abuse patient.[facility] HospitalIn the event this information is protected [...] or prosecute any alcohol or drug abuse patient.[facility] HospitalIn the event this information is protected by the Federal Confidentiality of Alcohol and Drug Abuse Patient Records regulations: The Federal rules restrict any use of the information to criminally investigate or prosecute any alcohol or drug abuse patient.[facility] HospitalIn the event this information is protected by the Federal Confidentiality of Alcohol and Drug Abuse Patient Records regulations: The Federal rules restrict any use of the information to criminally investigate or prosecute any alcohol or drug abuse patient.[facility] HospitalIn the event this information is protected by the Federal Confidentiality of Alcohol and Drug Abuse Patient Records regulations: The Federal rules restrict any use of the information to criminally investigate or prosecute any alcohol or drug abuse patient.[facility] HospitalIn the event this information is protected by the Federal Confidentiality of Alcohol and Drug Abuse Patient Records regulations: The Federal rules restrict any use of the information to criminally investigate or prosecute any alcohol or drug abuse patient.[facility] HospitalIn the event this information is protected by the Federal Confidentiality of Alcohol and Drug Abuse Patient Records regulations: The Federal rules restrict any use of the information to criminally investigate or prosecute any alcohol or drug abuse patient.[facility] HospitalIn the event this information is protected by the Federal Confidentiality of Alcohol and Drug Abuse Patient Records regulations: The Federal rules restrict any use of the information to criminally investigate or prosecute any alcohol or drug abuse patient.[facility] HospitalIn the event this information is protected by the Federal Confidentiality of Alcohol and Drug Abuse Patient Records regulations: The Federal rules restrict any use of the information to criminally investigate or prosecute any alcohol or drug abuse patient.[facility] HospitalIn the event this information is protected by the Federal Confidentiality of Alcohol and Drug Abuse Patient Records regulations: The Federal rules restrict any use of the information to criminally investigate or prosecute any alcohol or drug abuse patient.[facility] HospitalIn the event this information is protected by the Federal Confidentiality of Alcohol and Drug Abuse Patient Records regulations: The Federal rules restrict any use of the information to criminally investigate or prosecute any alcohol or drug abuse patient.[facility] HospitalIn the event this information is protected by the Federal Confidentiality of Alcohol and Drug Abuse Patient Records regulations: The Federal rules restrict any use of the information to criminally investigate or prosecute any alcohol or drug abuse patient.[facility] HospitalIn the event this information is protected by the Federal Confidentiality of Alcohol and Drug Abuse Patient Records regulations: The Federal rules restrict any use of the information to criminally investigate or prosecute any alcohol or drug abuse patient.[facility] HospitalIn the event this information is protected by the Federal Confidentiality of Alcohol and Drug Abuse Patient Records regulations: The Federal rules restrict any use of the information to criminally investigate or prosecute any alcohol or drug abuse patient.[facility] HospitalIn the event this information is protected by the Federal Confidentiality of Alcohol and Drug Abuse Patient Records regulations: The Federal rules restrict any use of the information to criminally investigate or prosecute any alcohol or drug abuse patient.[facility] HospitalIn the event this information is protected by the Federal Confidentiality of Alcohol and Drug Abuse Patient Records regulations: The Federal rules restrict any use of the information to criminally investigate or prosecute any alcohol or drug abuse patient.[facility] HospitalIn the event this information is protected by the Federal Confidentiality of Alcohol and Drug Abuse Patient Records regulations: The Federal rules restrict any use of the information to criminally investigate or prosecute any alcohol or drug abuse patient.[facility] HospitalIn the event this information is protected by the Federal Confidentiality of Alcohol and Drug Abuse Patient Records regulations: The Federal rules restrict any use of the information to criminally investigate or prosecute any alcohol or drug abuse patient.[facility] HospitalIn the event this information is protected by the Federal Confidentiality of Alcohol and Drug Abuse Patient Records regulations: The Federal rules restrict any use of the information to criminally investigate or prosecute any alcohol or drug abuse patient.[facility] HospitalIn the event this information is protected by the Federal Confidentiality of Alcohol and Drug Abuse Patient Records regulations: The Federal rules restrict any use of the information to criminally investigate or prosecute any alcohol or drug abuse patient.[facility] HospitalIn the event this information is protected by the Federal Confidentiality of Alcohol and Drug Abuse Patient Records regulations: The Federal rules restrict any use of the information to criminally investigate or prosecute any alcohol or drug abuse patient.[facility] HospitalIn the event this information is protected by the Federal Confidentiality of Alcohol and Drug Abuse Patient Records regulations: The Federal rules restrict any use of the information to criminally investigate or prosecute any alcohol or drug abuse patient.[facility] HospitalIn the event this information is protected by the Federal Confidentiality of Alcohol and Drug Abuse Patient Records regulations: The Federal rules restrict any use of the information to criminally investigate or prosecute any alcohol or drug abuse patient.[facility] HospitalIn the event this information is protected by the Federal Confidentiality of Alcohol and Drug Abuse Patient Records regulations: The Federal rules restrict any use of the information to criminally investigate or prosecute any alcohol or drug abuse patient.[facility] HospitalIn the event this information is protected by the Federal Confidentiality of Alcohol and Drug Abuse Patient Records regulations: The Federal rules restrict any use of the information to criminally investigate or prosecute any alcohol or drug abuse patient.[facility] HospitalIn the event this information is protected by the Federal Confidentiality of Alcohol and Drug Abuse Patient Records regulations: The Federal rules restrict any use of the information to criminally investigate or prosecute any alcohol or drug abuse patient.[facility] HospitalIn the event this information is protected by the Federal Confidentiality of Alcohol and Drug Abuse Patient Records regulations: The Federal rules restrict any use of the information to criminally investigate or prosecute any alcohol or drug abuse patient.[facility] HospitalIn the event this information is protected by the Federal Confidentiality of Alcohol and Drug Abuse Patient Records regulations: The Federal rules restrict any use of the information to criminally investigate or prosecute any alcohol or drug abuse patient.[facility] HospitalIn the event this information is protected by the Federal Confidentiality of Alcohol and Drug Abuse Patient Records regulations: The Federal rules restrict any use of the information to criminally investigate or prosecute any alcohol or drug abuse patient.[facility] HospitalIn the event this information is protected by the Federal Confidentiality of Alcohol and Drug Abuse Patient Records regulations: The Federal rules restrict any use of the information to criminally investigate or prosecute any alcohol or drug abuse patient.[facility] HospitalIn the event this information is protected by the Federal Confidentiality of Alcohol and Drug Abuse Patient Records regulations: The Federal rules restrict any use of the information to criminally investigate or prosecute any alcohol or drug abuse patient.[facility] HospitalIn the event this information is protected by the Federal Confidentiality of Alcohol and Drug Abuse Patient Records regulations: The Federal rules restrict any use of the information to criminally investigate or prosecute any alcohol or drug abuse patient.[facility] HospitalIn the event this information is protected by the Federal Confidentiality of Alcohol and Drug Abuse Patient Records regulations: The Federal rules restrict any use of the information to criminally investigate or prosecute any alcohol or drug abuse patient.[facility] HospitalIn the event this information is protected by the Federal Confidentiality of Alcohol and Drug Abuse Patient Records regulations: The Federal rules restrict any use of the information to criminally investigate or prosecute any alcohol or drug abuse patient.[facility] HospitalIn the event this information is protected by the Federal Confidentiality of Alcohol and Drug Abuse Patient Records regulations: The Federal rules restrict any use of the information to criminally investigate or prosecute any alcohol or drug abuse patient.[facility] HospitalIn the event this information is protected by the Federal Confidentiality of Alcohol and Drug Abuse Patient Records regulations: The Federal rules restrict any use of the information to criminally investigate or prosecute any alcohol or drug abuse patient.[facility] HospitalIn the event this information is protected by the Federal Confidentiality of Alcohol and Drug Abuse Patient Records regulations: The Federal rules restrict any use of the information to criminally investigate or prosecute any alcohol or drug abuse patient.[facility] HospitalIn the event this information is protected by the Federal Confidentiality of Alcohol and Drug Abuse Patient Records regulations: The Federal rules restrict any use of the information to criminally investigate or prosecute any alcohol or drug abuse patient.[facility] HospitalIn the event this information is protected by the Federal Confidentiality of Alcohol and Drug Abuse Patient Records regulations: The Federal rules restrict any use of the information to criminally investigate or prosecute any alcohol or drug abuse patient.[facility] HospitalIn the event this information is protected by the Federal Confidentiality of Alcohol and Drug Abuse Patient Records regulations: The Federal rules restrict any use of the information to criminally investigate or prosecute any alcohol or drug abuse patient.[facility] HospitalIn the event this information is protected by the Federal Confidentiality of Alcohol and Drug Abuse Patient Records regulations: The Federal rules restrict any use of the information to criminally investigate or prosecute any alcohol or drug abuse patient.[facility] HospitalIn the event this information is protected by the Federal Confidentiality of Alcohol and Drug Abuse Patient Records regulations: The Federal rules restrict any use of the information to criminally investigate or prosecute any alcohol or drug abuse patient.[facility] HospitalIn the event this information is protected by the Federal Confidentiality of Alcohol and Drug Abuse Patient Records regulations: The Federal rules restrict any use of the information to criminally investigate or prosecute any alcohol or drug abuse patient.[facility] HospitalIn the event this information is protected by the Federal Confidentiality of Alcohol and Drug Abuse Patient Records regulations: The Federal rules restrict any use of the information to criminally investigate or prosecute any alcohol or drug abuse patient.[facility] HospitalIn the event this information is protected by the Federal Confidentiality of Alcohol and Drug Abuse Patient Records regulations: The Federal rules restrict any use of the information to criminally investigate or prosecute any alcohol or drug abuse patient.[facility] HospitalIn the event this information is protected by the Federal Confidentiality of Alcohol and Drug Abuse Patient Records regulations: The Federal rules restrict any use of the information to criminally investigate or prosecute any alcohol or drug abuse patient.[facility] HospitalIn the event this information is protected by the Federal Confidentiality of Alcohol and Drug Abuse Patient Records regulations: The Federal rules restrict any use of the information to criminally investigate or prosecute any alcohol or drug abuse patient.[facility] HospitalIn the event this information is protected by the Federal Confidentiality of Alcohol and Drug Abuse Patient Records regulations: The Federal rules restrict any use of the information to criminally investigate or prosecute any alcohol or drug abuse patient.[facility] HospitalIn the event this information is protected by the Federal Confidentiality of Alcohol and Drug Abuse Patient Records regulations: The Federal rules restrict any use of the information to criminally investigate or prosecute any alcohol or drug abuse patient.[facility] HospitalIn the event this information is protected by the Federal Confidentiality of Alcohol and Drug Abuse Patient Records regulations: The Federal rules restrict any use of the information to criminally investigate or prosecute any alcohol or drug abuse patient.[facility] HospitalIn the event this information is protected [...] or prosecute any alcohol or drug abuse patient.[facility] HospitalIn the event this information is protected by the Federal Confidentiality of Alcohol and Drug Abuse Patient Records regulations: The Federal rules restrict any use of the information to criminally investigate or prosecute any alcohol or drug abuse patient.[facility] HospitalIn the event this information is protected by the Federal Confidentiality of Alcohol and Drug Abuse Patient Records regulations: The Federal rules restrict any use of the information to criminally investigate or prosecute any alcohol or drug abuse patient.[facility] HospitalIn the event this information is protected by the Federal Confidentiality of Alcohol and Drug Abuse Patient Records regulations: The Federal rules restrict any use of the information to criminally investigate or prosecute any alcohol or drug abuse patient.[facility] HospitalIn the event this information is protected by the Federal Confidentiality of Alcohol and Drug Abuse Patient Records regulations: The Federal rules restrict any use of the information to criminally investigate or prosecute any alcohol or drug abuse patient.[facility] HospitalIn the event this information is protected by the Federal Confidentiality of Alcohol and Drug Abuse Patient Records regulations: The Federal rules restrict any use of the information to criminally investigate or prosecute any alcohol or drug abuse patient.[facility] HospitalIn the event this information is protected by the Federal Confidentiality of Alcohol and Drug Abuse Patient Records regulations: The Federal rules restrict any use of the information to criminally investigate or prosecute any alcohol or drug abuse patient.[facility] HospitalIn the event this information is protected by the Federal Confidentiality of Alcohol and Drug Abuse Patient Records regulations: The Federal rules restrict any use of the information to criminally investigate or prosecute any alcohol or drug abuse patient.[facility] HospitalIn the event this information is protected by the Federal Confidentiality of Alcohol and Drug Abuse Patient Records regulations: The Federal rules restrict any use of the information to criminally investigate or prosecute any alcohol or drug abuse patient.[facility] HospitalIn the event this information is protected by the Federal Confidentiality of Alcohol and Drug Abuse Patient Records regulations: The Federal rules restrict any use of the information to criminally investigate or prosecute any alcohol or drug abuse patient.[facility] HospitalIn the event this information is protected by the Federal Confidentiality of Alcohol and Drug Abuse Patient Records regulations: The Federal rules restrict any use of the information to criminally investigate or prosecute any alcohol or drug abuse patient.[facility] HospitalIn the event this information is protected by the Federal Confidentiality of Alcohol and Drug Abuse Patient Records regulations: The Federal rules restrict any use of the information to criminally investigate or prosecute any alcohol or drug abuse patient.[facility] HospitalIn the event this information is protected by the Federal Confidentiality of Alcohol and Drug Abuse Patient Records regulations: The Federal rules restrict any use of the information to criminally investigate or prosecute any alcohol or drug abuse patient.[facility] Reason for Visit (unrecogniz ed section and content) Reason Comments Cigna form Linda Reason Onset Date Comments Care 07/20/2021 Reason Comments US Specialty Diagnoses / Procedures Referred By Ana dennis Referred To Contact [facility] Diagnoses 11 weeks gestation of History of gestational diabetes in prior , currently Hx of preeclampsia, prior , currently Encounter for supervision of other normal in first trimester Procedures OBSTETRIC ULTRASOUND WHI US PREG UTERUS AFTER 1ST TRIMEST GESTATION Dante Waite MD [address] [place] [address] [facility] [address] [place] [address] Referral ID Status Reason Start Date Expiration Date V isits Requested Visits Authorized [id number] Closed Auto-Generate d Referral 06/26/2021 06/26/2022 1 [...] By Ana t Referred To Contact [facility] Diagnoses Diet controlled gestational diabetes mellitus (GDM) in third trimester 32 weeks gestation of Supervision of other high risk pregnancies, third trimester Procedures OBSTETRIC ULTRASOUND WHI US PREG UTERUS AFTER 1ST TRIMEST GESTATION Dante Waite MD [address] [place] [address] [address] Referral ID Status Reason Start Date Expiration Date V isits Requested Visits Authorized [id number] Closed Auto-Generate d Referral 11/20/2021 11/20/2022 1 [...] By Ana dennis Referred To Contact [facility] Diagnoses Encounter for supervision of normal in multigravida Hx of preeclampsia, prior , currently 9 weeks gestation of Procedures OBSTETRIC ULTRASOUND WHI US PREG UTERUS AFTER 1ST TRIMEST GESTATION Dante Waite MD [address] [place] [address] Phone: tel: fax: [address] [address] Referral ID Status Reason Start Date Expiration Date V isits Requested Visits Authorized [id number] Closed Auto-Generate d Referral 05/04/2024 05/04/2025 1 [...] Care Teams (unrecognized sec tion and content) Beater Machine Operator Relationship Specialty Start Date End Date Min Bermoe, DO PCP - General Genetics 03/28/11 Beater Machine Operator Relationship Specialty Start Date End Date Min Bermeo, DO PCP - General Genetics 03/28/11 Beater Machine Operator Relationship Specialty Start Date End Date Min Bermeo, DO PCP - General Genetics 03/28/11 Beater Machine Operator Relationship Specialty Start Date End Date Min Bermeo, DO PCP - General Genetics 03/28/11 Beater Machine Operator Relationship Specialty Start Date End Date Min Bermeo, DO PCP - General Genetics 03/28/11 Beater Machine Operator Relationship Specialty Start Date End Date Min Bermeo, DO PCP - General Genetics 03/28/11 Be[employer] Machine Operator Relationship Specialty Start Date End Date Min Bermeo, DO PCP - General Genetics 03/28/11 Beater Machine Operator Relationship Specialty Start Date End Date Min Bermeo, DO PCP - General Genetics 03/28/11 Beater Machine Operator Relationship Specialty Start Date End Date Min Bermeo, DO PCP - General Genetics 03/28/11 Beater Machine Operator Relationship Specialty Start Date End Date Min Bermeo, DO PCP - General Genetics 03/28/11 Beater Machine Operator Relationship Specialty Start Date End Date Min Bermeo, DO PCP - General Genetics 03/28/11 Beater Machine Operator Relationship Specialty Start Date End Date Min Bermeo, DO PCP - General Genetics 03/28/11 Beater Machine Operator Relationship Specialty Start Date End Date Min Bermeo, DO PCP - General Genetics 03/28/11 Beater Machine Operator Relationship Specialty Start Date End Date Min Bermeo, DO PCP - General Genetics 03/28/11 Beater Machine Operator Relationship Specialty Start Date End Date Min Bermeo, DO PCP - General Genetics 03/28/11 Team Status: Active Member Role Status Dates Dr. Kathy Vyas MD Primary Care Provider Active Team Status: Inactive Member Role Status Dates Dr. Kathy Vyas MD Primary Care Provider Active Dr. Leonel Zelaya MD Emergency Provider Active Beater Machine Operator Relationship Specialty Start Date End Date Kathy Vyas MD [address] [place] [address] PCP - General Family Medicine 09/16/22 Beater Machine Operator Relationship Specialty Start Date End Date Kathy Vyas MD [address] [place] [address] PCP - General Family Medicine 09/16/22 Beater Machine Operator Relationship Specialty Start Date End Date Kathy Vyas MD [address] [place] [address] PCP - General Family Medicine 09/16/22 Beater Machine Operator Relationship Specialty Start Date End Date Kathy Vyas MD [address] [place] [address] PCP - General Family Medicine 09/16/22 Beater Machine Operator Relationship Specialty Start Date End Date Kathy Vyas MD [address] [place] [address] PCP - General Family Medicine 09/16/22 Beater Machine Operator Relationship Specialty Start Date End Date Kathy Vyas MD [address] [place] [address] PCP - General Family Medicine 09/16/22 Beater Machine Operator Relationship Specialty Start Date End Date Kathy Vyas MD [address] [place] [address] PCP - General Family Medicine 09/16/22 Beater Machine Operator Relationship Specialty Start Date End Date Kathy Vyas MD [address] [place] [address] PCP - General Family Medicine 09/16/22 Beater Machine Operator Relationship Specialty Start Date End Date Kathy Vyas MD [address] [place] [address] PCP - General Family Medicine 09/16/22 Beater Machine Operator Relationship Specialty Start Date End Date Kathy Vyas MD [address] [place] [address] PCP - General Family Medicine 09/16/22 Beater Machine Operator Relationship Specialty Start Date End Date Kathy Vyas MD [address] [place] [address] PCP - General Family Medicine 09/16/22 Beater Machine Operator Relationship Specialty Start Date End Date Kathy Vyas MD [address] [place] [address] PCP - General Family Medicine 09/16/22 Beater Machine Operator Relationship Specialty Start Date End Date Kathy Vyas MD [address] [place] [address] PCP - General Family Medicine 09/16/22 Beater Machine Operator Relationship Specialty Start Date End Date Kathy Vyas MD [address] [place] [address] PCP - General Family Medicine 09/16/22 Beater Machine Operator Relationship Specialty Start Date End Date Kathy Vyas MD [address] [place] [address] PCP - General Family Medicine 09/16/22 Beater Machine Operator Relationship Specialty Start Date End Date Kathy Vyas MD [address] [place] [address] PCP - General Family Medicine 09/16/22 Beater Machine Operator Relationship Specialty Start Date End Date Kathy Vyas MD [address] [place] [address] PCP - General Family Medicine 09/16/22 Beater Machine Operator Relationship Specialty Start Date End Date Kathy Vyas MD [address] [place] [address] PCP - General Family Medicine 09/16/22 Beater Machine Operator Relationship Specialty Start Date End Date Kathy Vyas MD [address] [place] [address] PCP - General Family Medicine 09/16/22 Beater Machine Operator Relationship Specialty Start Date End Date Kathy Vyas MD [address] [place] [address] PCP - General Family Medicine 09/16/22 Beater Machine Operator Relationship Specialty Start Date End Date Kathy Vyas MD [address] [place], [place] [id number] PCP - General Family Medicine 09/16/22 Beater Machine Operator Relationship Specialty Start Date End Date Kathy Vyas MD [address] [place], [place] [id number] PCP - General Family Medicine 09/16/22 Team [...] November 15, 2024 End: November 15, 2024 Beater Machine Operator Relationship Specialty Start Date End Date Kathy Vyas MD [address] [place] [address] PCP - General Family Medicine 09/16/22 Beater Machine Operator Relationship Specialty Start Date End Date Kathy Vyas MD [address] [place] [address] PCP - General Family Medicine 09/16/22 Beater Machine Operator Relationship Specialty Start Date End Date Kathy Vyas MD [address] [place], [place] [id number] PCP - General Family Medicine 09/16/22 Beater Machine Operator Relationship Specialty Start Date End Date Kathy Vyas MD [address] [place] [address] PCP - General Family Medicine 09/16/22 Goals (unrecognized section and content) Goals may be documented in a n alternate sectionGoals may be documented in an alternate sectionGoals may be documented in an alternate section INFORMATION SOURCE (unrecogn ized section and content) DATE CREATED AUTHOR 11/23/2024 [facility] DATE CREATED AUTHOR AUTHOR'S ORGANIZ ATION 11/26/2024 [facility] FOR RECORDS PERTAINING TO PATIENTS WHO [...] BE BASED ON THE PRIMARY CLINICAL RECORDS. [facility] [employer] [facility]. provides no warranty or guarantee of the accuracy or completeness of information in this document.
[2024-11-28] MEDS: Lactated Ringers 1,000 ML 999 ML IV (09:50)
[2024-11-28 09:53] LABS: Hematocrit 35.5 % (37-47); Hemoglobin 11.9 g/dL (12.0-15.0); Immature Granulocytes Count 0.050 X10^3/uL (0.0-0.0); Mean Corp Hgb Conc 33.5 g/dL (32-36); Mean Corpuscular Volume 83.7 fL (81-99); Mean Platelet Vol. 9.8 fl (6.2-12.0); NRBC Flagged by Analyzer 0 % (0-5); Platelet Count 302 K/mm3 (150-450); RBC Distribution Width CV 16.8 % (11.6-14.6); RBC Distribution Width SD 51.0 fl (35.1-43.9); Red Blood Count 4.24 M/mm3 (4.2-5.4); White Blood Count 10.5 K/mm3 (4.4-11.0)
--- OUTSIDE RECORDS SUMMARY | 2024-11-28 10:02 | XMS RPT_ITS | CCD ---
Author Organization [facility] CliniSytn Care Team Providers Care Cook Pie Name Role Phone Min Bermeo DO Primary Care Provider Dorys tootie Vyas MD, Kathy Medel Primary Care Provider Kathy Vyas MD Primary Care Provider Kathy Vyas MD Primary Care Provider Dr. Kathy Vyas MD Primary Care Provider [phone] Tara Parks CNM Attending Provider [phone] Tara Parks CNM Referring Provider Dante Waite [...] (1 source) Sulfonamides (Antibiotic) Drug Allergy 2 [facility] Work Phone: (20 sources) Sulfonamides (Antibiotic); Translations: [SULFA (SULFONAMIDE ANTIBIOTICS)] Drug Intolerance 2 [facility] Work Phone: (4 sources) Sulfonamides (Antibiotic) Allergy to substance 2 [facility] (1 source) Sulfonamides (Antibiotic) Drug allergy (disorder) 5 [facility] Repository Medications Current Medications Medication Drug Class(es) [...] EC tablet Indications: with uncertain dates, antepartum ([facility]) , Encounter for supervision of normal in multigravida ([facility]) Take 1 tablet by mouth once [...] dose. Iron (1 source) Start: 11-16-19 Pnv 656-Jggx-Ojtyxj-Dha 90 mg iron- 1 mg-200 mg capsule [...] (Normalized) Sig (Original) 1 ml HYDROXYprogesterone caproate (fdc) 250 mg/ml injection (1 source) Start: 2 End: HYDROXYprogesterone caproate (PF) 250 mg injection (LINAD) Start: 08-17-2021 End: 08-17-2021 HYDROXYprogesterone caproate (PF) 250 mg injection (LINDA) Polyethylene Glycols (20 sources) End: 10-10-2023 polyethylene glycol 3350 (FL RALAX ORAL) Take by mouth. 10/10/2023 Discontinued End: 10-10-2023 polyethylene glycol 3350 (FL RALAX ORAL) Take by mouth. 0 10/10/2023 Discontinued polyethylene gly col 3350 (MIRALAX ORAL) Take by mouth. 0 Active Comment on above: Take by mouth. Karbhuyo-Pz-Axz-Fe- FA ( VITAMIN) tab (20 sources) End: 10-10-2023 take 1 tablet by mouth once Wvynwyxu-Kz-Gey-Fe-FA ( VITAMIN) tab Take 1 tablet by mouth. 10/10/2023 Discontinued End: 10-10-2023 take 1 tablet by mouth once Ayfqguyj-Qi-Vte-Fe-FA ( VITAMIN) tab Take 1 tablet by mouth. 0 10/10/2023 Discontinued take 1 tablet by garrett th once Ullwtulq-Or-Lgc-Fe-FA ( VITAMIN) tab Take 1 tablet by [...] Translations: [Hx of preeclampsia, prior , currently ([facility])] Onset: 04-19-2024 Episodic Other complications of (1 source) Supervision of high risk , unspecified, second trimester; Translations: [Supervision of high risk in second trimester ([facility])] Onset: 07-21-2024 Episodic Other and delivery [...] of ; Translations: [24 weeks gestation of ([facility])] Onset: 08-18-2024 Episodic Residual codes; unclassified (2 sources) 9 weeks gestation of ; Translations: [9 weeks gestation of ([facility])] Onset: 06-02-2024 Episodic Residual codes; unclassified (1 source) Less than 8 weeks gestation of ; Translations: [7 weeks gestation of ] Onset: 05-04-2024 Episodic Results Test Name Value Interpretation Reference Range Facil ity URINE OB DIP B/Oon Glucose Ql (U) Negative Neg mg/dL [facility] Interpretation and review of laboratory results Normal [facility] Protein.monoclonal (U) [Mass/Vol] Negative Neg mg/dL [facility] HISTORY PHYSICALon HISTORY PHYSICAL HNO ID: [id number] Author: DANTE WAITE MD Service: ? Author [...] Acne Anemia Gestational diabetes mellitus, class A1 ([facility]) 11/22/2019 Hx of preeclampsia, prior , currently ([facility]) 04/19/2024 Preeclampsia ([facility]) PAST SURGICAL HISTORY Procedure Laterality Date [...] Grandfather Leukemia Maternal Grandfather Heart Paternal Grandmother [place] Stroke Paternal Grandmother Heart Paternal Grandfather 48 [...] medications and allergies Dante Waite M.D. Normal [facility] OB Triage Physician Noteon 0 11-15-2024 OB Triage Physician Note [facility] Medical Records Department [address] [place] [address] OB Triage Physician Note 11/15/24 1249 MR#: [id number] Acct: [id number] Name: HERB MORAN Rep #: [id number] : 1990 34 From: Dante Waite MD PCP: Dr. Kathy Vyas MD Status:REG CLI Y Location: [place] [address] HPI - General General Date of Admission: 11/15/24 Date of Service: 11/15/24 Chief Complaint: breech HPI Narrative HERB MORAN, is a 34 F who presents Maternal Data Information Final EDIL: 12/02/24 Gestational age: 37 4/7 PFSH [facility] Medical History (Updated 11/15/24 @ 12:51 by [...] MD; Dr. Dante Waite MD Signed Normal [facility] URINE OB DIP B/Oon 5 Glucose Ql (U) Negative Neg mg/dL [facility] Interpretation and review of laboratory results Normal [facility] Protein.monoclonal (U) [Mass/Vol] Negative Neg mg/dL [facility] ROUTINE, GROUP B ST REPTOCOCCUS BY PCRon 11-10-2024 ROUTINE, GROUP B STREPTOCOCCUS BY PCR Not detected Normal [facility] Comment on above: Performed By: #### G BPCR ####[facility] LABCLIA [id number] [address] STATES OF [facility] URINE OB DIP B/Oon 5 Glucose Ql (U) Negative Neg mg/dL [facility] Interpretation and review of laboratory results Normal [facility] Protein.monoclonal (U) [Mass/Vol] Negative Neg mg/dL [facility] URINE OB DIP B/Oon 5 Glucose Ql (U) Negative Neg mg/dL [facility] Interpretation and review of laboratory results Normal [facility] Protein.monoclonal (U) [Mass/Vol] Negative Neg mg/dL [facility] CNPNon 10-04-2024 CNPN Telephone (OBGYWM) HERB MORAN ([id number]) 1990 F Date Time Provider Department 10/04/24 DANTE WAITE During your visit today, we recorded the following information about you: Mare Larios RN 10/04/2024 8:50 AM Signed Received breast pump RX from [facility]. To RR to sign. GISSELLE Ocampo Tara, [...] Status:Closed by CEM BACK on 6/23/25 Normal [facility] Bacteria Ur Culton Bacteria identified Cx Nom (U) ORGANISM ID: 1 10,000 -<50,000 CFU/ml Normal urogenital leandro Normal [facility] Comment on above: Performed By: #### 6 30-4 ####[facility] LABCLIA [id number] [address] [place] CBC W Auto Differential pane l (Bld)on 09-27-2024 Basophils (Bld) [#/Vol] 0.03 10*3/uL [facility] Basophils/100 WBC (Bld) 0.3 % [facility] Differential cell count method Nom (Bld) Auto [facility] Eosinophils (Bld) [#/Vol] 0.21 10*3/uL [facility] Eosinophils/100 WBC (Bld) 2 % [facility] Erythrocyte distribution width (RBC) [Ratio] 15.9 % High 11.5 - 15.0 % [facility] Hematocrit (Bld) [Volume fraction] 32.5 % Low 36.0 - 46.0 % [facility] Hemoglobin (Bld) [Mass/Vol] 10.7 g/dL Low 11.5 - 15.5 g/dL [facility] Immature granulocytes (Bld) [#/Vol] 0.12 10*3/uL High [facility] Immature granulocytes/100 WBC (Bld) 1.1 % [facility] Interpretation and review of laboratory results Abnormal [facility] Lymphocytes (Bld) [#/Vol] 2.17 10*3/uL [facility] Lymphocytes/100 WBC (Bld) 20.4 % [facility] MCH (RBC) [Entitic mass] 27.4 pg 26.0 - 34.0 pg [facility] MCHC (RBC) [Mass/Vol] 32.9 g/dL 30.5 - 36.0 g/dL [facility] MCV (RBC) [Entitic vol] 83.1 fL 80.0 - 100.0 fL [facility] Monocytes (Bld) [#/Vol] 0.87 10*3/uL High [facility] Monocytes/100 WBC (Bld) 8.2 % [facility] Neutrophils (Bld) [#/Vol] 7.26 10*3/uL [facility] Neutrophils/100 WBC (Bld) 68 % [facility] Nucleated RBC (Bld) [#/Vol] NINF [facility] Nucleated RBC/100 WBC (Bld) [Ratio] 0 % /100 WBC [facility] Platelet mean volume (Bld) [Entitic vol] 8.9 fL Low 9.0 - 12.7 fL [facility] Platelets (Bld) [#/Vol] 333 10*3/uL [facility] RBC (Bld) [#/Vol] 3.91 10*6/uL 3.90 - 5.2 0 m/uL [facility] WBC (Bld) [#/Vol] 10.66 10*3[facility] Basophils (Bld) [#/Vol] 0.03 10*3/uL Normal <0.11 [facility] Comment on above: Order Comment: Speci men Type: BLOOD SPECIMENOrdering Facility: [facility] Address: [address] [place] [address] Performed By: #### 5 7021-8 ####[facility] [id number] [place] [address] [place] Basophils/100 WBC (Bld) 0.3 % Normal [facility] Comment on above: Order Comment: Speci men Type: BLOOD SPECIMENOrdering Facility: [facility] Address: [address] [place] [address] Performed By: #### 5 7021-8 ####[facility] [id number] [place] [address] [place] Differential cell count method Nom (Bld) Auto Normal [facility] Comment on above: Order Comment: Speci men Type: BLOOD SPECIMENOrdering Facility: [facility] Address: [address] [place] [address] Performed By: #### 5 7021-8 ####[facility] [id number] [place] [address] [place] Eosinophils (Bld) [#/Vol] 0.21 10*3/uL Normal <0.46 [facility] Comment on above: Order Comment: Speci men Type: BLOOD SPECIMENOrdering Facility: [facility] Address: [address] [place] [address] Performed By: #### 5 7021-8 ####[facility] [id number] [place] [address] [place] Eosinophils/100 WBC (Bld) 2.0 % Normal [facility] Comment on above: Order Comment: Speci men Type: BLOOD SPECIMENOrdering Facility: [facility] Address: [address] [place] [address] Performed By: #### 5 7021-8 ####[facility] [id number] [place] [address] [place] Erythrocyte distribution width (RBC) [Ratio] 15.9 % High 11.5-15.0 [facility] Comment on above: Order Comment: Speci men Type: BLOOD SPECIMENOrdering Facility: [facility] Address: [address] [place] [address] Performed By: #### 5 7021-8 ####[facility] [id number] [place] [address] [place] Hematocrit (Bld) [Volume fraction] 32.5 % Low 36.0-46.0 [facility] Comment on above: Order Comment: Speci men Type: BLOOD SPECIMENOrdering Facility: [facility] Address: [address] [place] [address] Performed By: #### 5 7021-8 ####[facility] [id number] [place] [address] [place] Hemoglobin (Bld) [Mass/Vol] 10.7 g/dL Low 11.5-15.5 [facility] Comment on above: Order Comment: Speci men Type: BLOOD SPECIMENOrdering Facility: [facility] Address: [address] [place] [address] Performed By: #### 5 7021-8 ####[facility] [id number] [place] [address] [place] Immature granulocytes (Bld) [#/Vol] 0.12 10*3/uL High <0.10 [facility] Comment on above: Order Comment: Speci men Type: BLOOD SPECIMENOrdering Facility: [facility] Address: [address] [place] [address] Performed By: #### 5 7021-8 ####[facility] [id number] [place] [address] [place] Immature granulocytes/100 WBC (Bld) 1.1 % Normal [facility] Comment on above: Order Comment: Speci men Type: BLOOD SPECIMENOrdering Facility: [facility] Address: [address] [place] [address] Performed By: #### 5 7021-8 ####[facility] [id number] [place] [address] [place] Lymphocytes (Bld) [#/Vol] 2.17 10*3/uL Normal 1.00-4.00 [facility] Comment on above: Order Comment: Speci men Type: BLOOD SPECIMENOrdering Facility: [facility] Address: [address] [place] [address] Performed By: #### 5 7021-8 ####[facility] [id number] [place] [address] [place] Lymphocytes/100 WBC (Bld) 20.4 % Normal [facility] Comment on above: Order Comment: Speci men Type: BLOOD SPECIMENOrdering Facility: [facility] Address: [address] [place] [address] Performed By: #### 5 7021-8 ####[facility] [id number] [place] [address] [place] MCH (RBC) [Entitic mass] 27.4 pg Normal 26.0-34.0 [facility] Comment on above: Order Comment: Speci men Type: BLOOD SPECIMENOrdering Facility: [facility] Address: [address] [place] [address] Performed By: #### 5 7021-8 ####[facility] [id number] [place] [address] [place] MCHC (RBC) [Mass/Vol] 32.9 g/dL Normal 30.5-36.0 [facility] Comment on above: Order Comment: Speci men Type: BLOOD SPECIMENOrdering Facility: [facility] Address: [address] [place] [address] Performed By: #### 5 7021-8 ####[facility] [id number] [place] [address] [place] MCV (RBC) [Entitic vol] 83.1 fL Normal 80.0-100.0 [facility] Comment on above: Order Comment: Speci men Type: BLOOD SPECIMENOrdering Facility: [facility] Address: [address] [place] [address] Performed By: #### 5 7021-8 ####[facility] [id number] [place] [address] [place] Monocytes (Bld) [#/Vol] 0.87 10*3/uL High <0.87 [facility] Comment on above: Order Comment: Speci men Type: BLOOD SPECIMENOrdering Facility: [facility] Address: [address] [place] [address] Performed By: #### 5 7021-8 ####[facility] [id number] [place] [address] [place] Monocytes/100 WBC (Bld) 8.2 % Normal [facility] Comment on above: Order Comment: Speci men Type: BLOOD SPECIMENOrdering Facility: [facility] Address: [address] [place] [address] Performed By: #### 5 7021-8 ####[facility] [id number] [place] [address] [place] Neutrophils (Bld) [#/Vol] 7.26 10*3/uL Normal 1.45-7.50 [facility] Comment on above: Order Comment: Speci men Type: BLOOD SPECIMENOrdering Facility: [facility] Address: [address] [place] [address] Performed By: #### 5 7021-8 ####[facility] [id number] [place] [address] [place] Neutrophils/100 WBC (Bld) 68.0 % Normal [facility] Comment on above: Order Comment: Speci men Type: BLOOD SPECIMENOrdering Facility: [facility] Address: [address] [place] [address] Performed By: #### 5 7021-8 ####[facility] [id number] [place] [address] [place] Nucleated RBC (Bld) [#/Vol] 10*3/uL Normal <0.01 [facility] Comment on above: Order Comment: Speci men Type: BLOOD SPECIMENOrdering Facility: [facility] Address: [address] [place] [address] Performed By: #### 5 7021-8 ####[facility] [id number] [place] [address] [place] Nucleated RBC/100 WBC (Bld) [Ratio] 0.0 /100 WBC Normal [facility] Comment on above: Order Comment: Speci men Type: BLOOD SPECIMENOrdering Facility: [facility] Address: [address] [place], [place] [address] Performed By: #### 5 7021-8 ####[facility] [id number] [place] [address] [place] Platelet mean volume (Bld) [Entitic vol] 8.9 fL Low 9.0-12.7 [facility] Comment on above: Order Comment: Speci men Type: BLOOD SPECIMENOrdering Facility: [facility] Address: [address] [place] [address] Performed By: #### 5 7021-8 ####[facility] [id number] [place] [address] [place] Platelets (Bld) [#/Vol] 333 10*3/uL Normal 150-400 [facility] Comment on above: Order Comment: Speci men Type: BLOOD SPECIMENOrdering Facility: [facility] Address: [address] [place] [address] Performed By: #### 5 7021-8 ####[facility] [id number] [place] [address] [place] RBC (Bld) [#/Vol] 3.91 10*6/uL Normal 3.90-5.20 [facility] Comment on above: Order Comment: Speci men Type: BLOOD SPECIMENOrdering Facility: [facility] Address: [address] [place], [place] [address] Performed By: #### 5 7021-8 ####[facility] [id number] [place] [address] [place] WBC (Bld) [#/Vol] 10.66 10*3/uL Normal 3.70-11.00 [facility] Comment on above: Order Comment: Speci men Type: BLOOD SPECIMENOrdering Facility: [facility] Address: [address] [place] [address] Performed By: #### 5 7021-8 ####[facility] LET[facility] DAWSONWAKEFIELDNCLIPrem [id number] [place] [address] [place] Comprehensive metabolic 2000 panelOrdered By: Elizabeth Resendiz on 09-27-2024 Albumin [Mass/Vol] 3.7 g/dL Low 3.9 - 4.9 g/dL Cl [facility] ALP [Catalytic activity/Vol] 124 U/L High 34 - 123 U/L [facility] ALT [Catalytic activity/Vol] 28 U/L 7 - 38 U/L [facility] Anion gap [Moles/Vol] 12 mmol/L 8 - 15 mmol/L [facility] AST [Catalytic activity/Vol] 20 U/L 13 - 35 U/L [facility] Bilirubin [Mass/Vol] mg/dL Low 0.2 - 1.3 mg/dL [facility] Calcium [Mass/Vol] 8.6 mg/dL 8.5 - 10. 2 mg/dL [facility] Chloride [Moles/Vol] 106 mmol/L 98 - 107 mmol/L [facility] CO2 [Moles/Vol] 17 mmol/L Low 22 - 30 mmol/L [facility] Creatinine [Mass/Vol] 0.52 mg/dL Low 0.58 - 0.96 mg/dL [facility] GFR/1.73 sq M.predicted among non-blacks MDRD (S/P/Bld) [Vol rate/Area] 127 mL/min/{1.73_m2} - PINF [facility] Comment on above: Estimated Glomerular Filtration [...] 111 mg/dL High 74 - 99 mg/dL [facility] Comment on above: The [place] Diabete s Association (ADA) provides guidance for [...] Standards of Medical Care in Diabetes 2016, [place] [employer]. Diabetes Care. 2016.39(Suppl 1). Interpretation and review of laboratory results Abnormal [facility] Potassium [Moles/Vol] 3.6 mmol/L Low 3.7 - 5.1 mmol/L [facility] Protein [Mass/Vol] 6.5 g/dL 6.3 - 8.0 g/dL [facility] Sodium [Moles/Vol] 135 mmol/L Low 136 - 144 mmol/L [facility] Urea nitrogen [Mass/Vol] 8 mg/dL 7 - 21 mg/dL [facility] Comprehensive metabolic 2000 panelon 09-27-2024 Albumin [Mass/Vol] 3.7 g/dL Low 3.9-4.9 [facility] Comment on above: Order Comment: Speci men Type: BLOOD SPECIMENOrdering Facility: [facility] Address: [address] [place] [address] Performed By: #### 2 4323-8 ####[facility] [id number] [place] [address] [place] ALP [Catalytic activity/Vol] 124 U/L High 34-123 [facility] Comment on above: Order Comment: Speci men Type: BLOOD SPECIMENOrdering Facility: [facility] Address: [address] [place] [address] Performed By: #### 2 4323-8 ####[facility] [id number] [place] [address] [place] ALT [Catalytic activity/Vol] 28 U/L Normal 7-38 [facility] Comment on above: Order Comment: Speci men Type: BLOOD SPECIMENOrdering Facility: [facility] Address: [address] [place] [address] Performed By: #### 2 4323-8 ####[facility] LETTY MILLTOWNCLIA [id number] [place] [address] [place] Anion gap [Moles/Vol] 12 mmol/L Normal 8-15 [facility] Comment on above: Order Comment: Speci men Type: BLOOD SPECIMENOrdering Facility: [facility] Address: [address] [place] [address] Performed By: #### 2 4323-8 ####[facility] [id number] [place] [address] [place] AST [Catalytic activity/Vol] 20 U/L Normal 13-35 [facility] Comment on above: Order Comment: Speci men Type: BLOOD SPECIMENOrdering Facility: [facility] Address: [address] [place] [address] Performed By: #### 2 4323-8 ####[facility] [id number] [place] [address] [place] Bilirubin [Mass/Vol] mg/dL Low 0.2-1.3 [facility] Comment on above: Order Comment: Speci men Type: BLOOD SPECIMENOrdering Facility: [facility] Address: [address] [place] [address] Performed By: #### 2 4323-8 ####[facility] [id number] [place] [address] [place] Calcium [Mass/Vol] 8.6 mg/dL Normal 8.5-10.2 [facility] Comment on above: Order Comment: Speci men Type: BLOOD SPECIMENOrdering Facility: [facility] Address: [address] [place], [place] [address] Performed By: #### 2 4323-8 ####[facility] [id number] [place] [address] [place] Chloride [Moles/Vol] 106 mmol/L Normal 98-107 [facility] Comment on above: Order Comment: Speci men Type: BLOOD SPECIMENOrdering Facility: [facility] Address: [address] [place] [address] Performed By: #### 2 4323-8 ####[facility] [id number] [place] [address] [place] CO2 [Moles/Vol] 17 mmol/L Low 22-30 [facility] Comment on above: Order Comment: Speci men Type: BLOOD SPECIMENOrdering Facility: [facility] Address: [address] [place] [address] Performed By: #### 2 4323-8 ####[facility] [id number] [place] [address] [place] Creatinine [Mass/Vol] 0.52 mg/dL Low 0.58-0.96 [facility] Comment on above: Order Comment: Speci men Type: BLOOD SPECIMENOrdering Facility: [facility] Address: [address] [place] [address] Performed By: #### 2 4323-8 ####[facility] [id number] [address] OF [facility] Creatinine and Glomerular filtration rate.predicted panel (S/P/Bld) 127 mL/min/1.73m??? Normal >=60 [facility] Comment on above: Order Comment: Speci men Type: BLOOD SPECIMENOrdering Facility: [facility] Address: [address] [place] [address] Result Comment: Ángela mated Glomerular Filtration Rate [...] actual GFR. Performed By: #### 2 4323-8 ####[facility] [id number] [place] [address] [place] Glucose [Mass/Vol] 111 mg/dL High 74-99 [facility] Comment on above: Order Comment: Speci men Type: BLOOD SPECIMENOrdering Facility: [facility] Address: [address] [place] [address] Result Comment: The [place] Diabetes Association (ADA) provides guidance for cutoff [...] Standards of Medical Care in Diabetes 2016, [place] [employer] Association. Diabetes Care. 2016.39(Suppl 1). Performed By: #### 2 4323-8 ####[facility] [id number] [place] [address] [place] Potassium [Moles/Vol] 3.6 mmol/L Low 3.7-5.1 [facility] Comment on above: Order Comment: Speci men Type: BLOOD SPECIMENOrdering Facility: [facility] Address: [address] [place] [id number] Performed By: #### 2 4323-8 ####[facility] [id number] [place] [address] [place] Protein [Mass/Vol] 6.5 g/dL Normal 6.3-8.0 [facility] Comment on above: Order Comment: Speci men Type: BLOOD SPECIMENOrdering Facility: [facility] Address: [address] [place] [address] Performed By: #### 2 4323-8 ####[facility] [id number] [place] [address] [place] Sodium [Moles/Vol] 135 mmol/L Low 136-144 [facility] Comment on above: Order Comment: Speci men Type: BLOOD SPECIMENOrdering Facility: [facility] Address: [address] [place] [address] Performed By: #### 2 4323-8 ####[facility] [id number] [place] [address] [place] Urea nitrogen [Mass/Vol] 8 mg/dL Normal 7-21 [facility] Comment on above: Order Comment: Speci men Type: BLOOD SPECIMENOrdering Facility: [facility] Address: [address] [place] [address] Performed By: #### 2 4323-8 ####[facility] [id number] [place] [address] [place] UA DIP, URINE (POC)on 2024 BILIRUBIN UA (POCT) Negative Negative [facility] CLARITY UA (POCT) Clear [facility] COLOR UA (POCT) Yellow [facility] GLUCOSE UA (POCT) Negative Negative mg/dL [facility] Hemoglobin Ql (U) Negative Negative [facility] Interpretation and review of laboratory results Abnormal [facility] KETONE UA (POCT) Negative Negative mg/dL [facility] LEUKOCYTES UA (POCT) Trace Abnormal Negative [facility] NITRITE UA (POCT) Negative Negative [facility] PH UA (POCT) 6 4.5 - 8.0 [facility] Protein Ql (U) Trace Abnormal Negative mg/dL [facility] SPECIFIC GRAVITY UA (POCT) 1.02 1.005 - 1.030 [facility] UROBILINOGEN UA (POCT) 0.2 Normal E.U./d L [facility] Location:[facility], [address], [place], [address] [place] [address] POINT OF CARE [facility] CBC W Auto Differential pane l (Bld)on 09-15-2024 Basophils (Bld) [#/Vol] 10*3/uL Normal <0.11 [facility] Comment on above: Order Comment: Speci men Type: BLOOD SPECIMENOrdering Facility: [facility] Address: [address] [place] [address] Performed By: #### 5 7021-8 ####[facility] [id number] [place] [address] [place] Basophils/100 WBC (Bld) 0.2 % Normal [facility] Comment on above: Order Comment: Speci men Type: BLOOD SPECIMENOrdering Facility: [facility] Address: [address] [place] [address] Performed By: #### 5 7021-8 ####[facility] [id number] [place] [address] [place] Differential cell count method Nom (Bld) Auto Normal [facility] Comment on above: Order Comment: Speci men Type: BLOOD SPECIMENOrdering Facility: [facility] Address: [address] [place] [address] Performed By: #### 5 7021-8 ####[facility] [id number] [place] [address] [place] Eosinophils (Bld) [#/Vol] 0.22 10*3/uL Normal <0.46 [facility] Comment on above: Order Comment: Speci men Type: BLOOD SPECIMENOrdering Facility: [facility] Address: [address] [place] [address] Performed By: #### 5 7021-8 ####[facility] [id number] [place] [address] [place] Eosinophils/100 WBC (Bld) 2.7 % Normal [facility] Comment on above: Order Comment: Speci men Type: BLOOD SPECIMENOrdering Facility: [facility] Address: [address] [place] [address] Performed By: #### 5 7021-8 ####[facility] [id number] [place] [address] [place] Erythrocyte distribution width (RBC) [Ratio] 14.9 % Normal 11.5-15.0 [facility] Comment on above: Order Comment: Speci men Type: BLOOD SPECIMENOrdering Facility: [facility] Address: [address] [place] [address] Performed By: #### 5 7021-8 ####[facility]NCYOGESHPrem [id number] [place] [address] [place] Hematocrit (Bld) [Volume fraction] 31.2 % Low 36.0-46.0 [facility] Comment on above: Order Comment: Speci men Type: BLOOD SPECIMENOrdering Facility: [facility] Address: [address] [place] [address] Performed By: #### 5 7021-8 ####[facility] [id number] [place] [address] [place] Hemoglobin (Bld) [Mass/Vol] 10.3 g/dL Low 11.5-15.5 [facility] Comment on above: Order Comment: Speci men Type: BLOOD SPECIMENOrdering Facility: [facility] Address: [address] [place] [address] Performed By: #### 5 7021-8 ####[facility]ITALPETEYLIA [id number] [place] [address] [place] Immature granulocytes (Bld) [#/Vol] 0.06 10*3/uL Normal <0.10 [facility] Comment on above: Order Comment: Speci men Type: BLOOD SPECIMENOrdering Facility: [facility] Address: [address] [place] [address] Performed By: #### 5 7021-8 ####[facility] H[facility]ITALWNCLIA [id number] [place] [address] [place] Immature granulocytes/100 WBC (Bld) 0.7 % Normal [facility] Comment on above: Order Comment: Speci men Type: BLOOD SPECIMENOrdering Facility: [facility] Address: [address] [place] [address] Performed By: #### 5 7021-8 ####[facility] [id number] [place] [address] [place] Lymphocytes (Bld) [#/Vol] 1.61 10*3/uL Normal 1.00-4.00 [facility] Comment on above: Order Comment: Speci men Type: BLOOD SPECIMENOrdering Facility: [facility] Address: [address] [place] [address] Performed By: #### 5 7021-8 ####[facility] [id number] [place] [address] [place] Lymphocytes/100 WBC (Bld) 19.6 % Normal [facility] Comment on above: Order Comment: Speci men Type: BLOOD SPECIMENOrdering Facility: [facility] Address: [address] [place] [address] Performed By: #### 5 7021-8 ####[facility] [id number] [place] [address] [place] MCH (RBC) [Entitic mass] 27.2 pg Normal 26.0-34.0 [facility] Comment on above: Order Comment: Speci men Type: BLOOD SPECIMENOrdering Facility: [facility] Address: [address] [place] [address] Performed By: #### 5 7021-8 ####[facility] [id number] [place] [address] [place] MCHC (RBC) [Mass/Vol] 33.0 g/dL Normal 30.5-36.0 [facility] Comment on above: Order Comment: Speci men Type: BLOOD SPECIMENOrdering Facility: [facility] Address: [address] [place] [address] Performed By: #### 5 7021-8 ####[facility] [id number] [place] [address] [place] MCV (RBC) [Entitic vol] 82.5 fL Normal 80.0-100.0 [facility] Comment on above: Order Comment: Speci men Type: BLOOD SPECIMENOrdering Facility: [facility] Address: [address] [place] [address] Performed By: #### 5 7021-8 ####[facility] [id number] [place] [address] [place] Monocytes (Bld) [#/Vol] 0.48 10*3/uL Normal <0.87 [facility] Comment on above: Order Comment: Speci men Type: BLOOD SPECIMENOrdering Facility: [facility] Address: [address] [place] [address] Performed By: #### 5 7021-8 ####[facility] [id number] [place] [address] [place] Monocytes/100 WBC (Bld) 5.8 % Normal [facility] Comment on above: Order Comment: Speci men Type: BLOOD SPECIMENOrdering Facility: [facility] Address: [address] [place] [address] Performed By: #### 5 7021-8 ####[facility] [id number] [place] [address] [place] Neutrophils (Bld) [#/Vol] 5.82 10*3/uL Normal 1.45-7.50 [facility] Comment on above: Order Comment: Speci men Type: BLOOD SPECIMENOrdering Facility: [facility] Address: [address] [place] [address] Performed By: #### 5 7021-8 ####[facility] [id number] [place] [address] [place] Neutrophils/100 WBC (Bld) 71.0 % Normal [facility] Comment on above: Order Comment: Speci men Type: BLOOD SPECIMENOrdering Facility: [facility] Address: [address] [place] [address] Performed By: #### 5 7021-8 ####[facility]PITALPETEYPrem [id number] [place] [address] [place] Nucleated RBC (Bld) [#/Vol] 10*3/uL Normal <0.01 [facility] Comment on above: Order Comment: Speci men Type: BLOOD SPECIMENOrdering Facility: [facility] Address: [address] [place] [address] Performed By: #### 5 7021-8 ####[facility]PITALNCA [id number] [place] [address] [place] Nucleated RBC/100 WBC (Bld) [Ratio] 0.0 /100 WBC Normal [facility] Comment on above: Order Comment: Speci men Type: BLOOD SPECIMENOrdering Facility: [facility] Address: [address] [place] [address] Performed By: #### 5 7021-8 ####[facility] [id number] [place] [address] [place] Platelet mean volume (Bld) [Entitic vol] 8.8 fL Low 9.0-12.7 [facility] Comment on above: Order Comment: Speci men Type: BLOOD SPECIMENOrdering Facility: [facility] Address: [address] [place] [address] Performed By: #### 5 7021-8 ####[facility]ITALNCLIA [id number] [place] [address] [place] Platelets (Bld) [#/Vol] 312 10*3/uL Normal 150-400 [facility] Comment on above: Order Comment: Speci men Type: BLOOD SPECIMENOrdering Facility: [facility] Address: [address] [place] [address] Performed By: #### 5 7021-8 ####[facility]ITALNCLIA [id number] [place] [address] [place] RBC (Bld) [#/Vol] 3.78 10*6/uL Low 3.90-5.20 [facility] Comment on above: Order Comment: Speci men Type: BLOOD SPECIMENOrdering Facility: [facility] Address: [address] [place] [address] Performed By: #### 5 7021-8 ####[facility]ITALNCA [id number] [place] [address] [place] WBC (Bld) [#/Vol] 8.21 10*3/uL Normal 3.70-11.00 [facility] Comment on above: Order Comment: Speci men Type: BLOOD SPECIMENOrdering Facility: [facility] Address: [address] [place] [address] Performed By: #### 5 7021-8 ####[facility]ITALNCLIA [id number] [place] [address] [place] Ferritin SerPl-mCncon 2024 Ferritin [Mass/Vol] 8.3 ng/mL Low 14.7-205.1 [facility] Comment on above: Order Comment: Speci men Type: BLOOD SPECIMENOrdering Facility: [facility] Address: [address] [place] [address] Performed By: #### 5 0190-8, 2276- ####[facility] LABCLIA [id number] [place] [id number] [place] GESTATIONAL GLUCOSE SCREEN, 1-HOUR, 50 GRAM, NON-FASTINGon 09-15-2024 Glucose [Mass/Vol] 128 mg/dL Normal 74-134 [facility] Comment on above: Order Comment: Speci men Type: BLOOD SPECIMENOrdering Facility: [facility] Address: [address] [place] [address] Result Comment: [facility] Congress of Obstetricians and Gynec[employer] (Mariluz/Mode) guidelines state a gestational diabetes mellitus positive screen is made, in women not previously diagnosed with overt diabetes, when the 1 hr plasma glucose level is equal to or above 140 mg/dL. The [facility] Sanitation Superintendent and [facility] [place] recommends a 135 mg/dL cutoff. Performed By: #### G LTGST ####[facility] [id number] [place] [address] [place] Iron and Iron binding capaci ty panelon 09-15-2024 Iron [Mass/Vol] 52 ug/dL Normal 41-186 [facility] Comment on above: Order Comment: Speci men Type: BLOOD SPECIMENOrdering Facility: [facility] Address: [address] [place] [address] Performed By: #### 5 0190-8, 4 ####[facility] LABCLIA [id number] [place] [id number] [place] Iron binding capacity [Mass/Vol] >552 High 232-386 [facility] Comment on above: Order Comment: Speci men Type: BLOOD SPECIMENOrdering Facility: [facility] Address: [address] [place], [place] [address] Performed By: #### 5 0190-8, 2275-07 ####[facility] LABCLIA [id number] [place] [id number] [place] Iron/TIBC [Molar ratio] <9.4 Low 15.0-57.0 [facility] Comment on above: Order Comment: Speci osito Type: BLOOD SPECIMENOrdering Facility: [facility] Address: [address] [place] [address] Performed By: #### 5 0190-8, 2276-4 ####[facility] LABCLIA [id number] [address] [place] Reagin and Treponema pallidu m IgG and IgM [Interp]on 09-15-2024 T. pallidum IgG+IgM IA Ql (S) Non-Reactive Normal Nonreactive [facility] Comment on above: Order Comment: Speci men Type: BLOOD SPECIMENOrdering Facility: [facility] Address: [address] [place] [address] Performed By: #### 7 3752-8 ####[facility] LABIA [id number] [place] [address] [place] Reagin+T pallidum IgG+IgM Se rPl-Impon 09-15-2024 Reagin and Treponema pallidum IgG and IgM [Interp] Cannot exclude recent Treponemal infection if specimen collected within 7-10 days after appearance of suspect lesions or 2-3 weeks after an exposure. Clinical correlation is required. Normal [facility] Comment on above: Order Comment: Aurorai osito Type: BLOOD SPECIMENOrdering Facility: [facility] Address: [address] [place] [address] Performed By: #### 7 3752-8 ####[facility] LABIA [id number] [place] [id number] [place] Examination level ultrasound on 06-02-2024 Indication First trimester anatomic survey Impression REMOTE READ The patient is referred for a first trimester anatomy scan including nuchal translucency measurement as clinically indicated. - Single, live, intrauterine . - [place] rump length measurement is consistent with the [...] view: visualized 4-chamber view with color: visualized 4-[id number] view: normal Abdominal cord insertion: normal Stomach: [...] By: Manjula Diaz M.D. MATERNAL MEDICINE [facility] Radiology Study observation (narrative) [facility] CBC W Auto Differential pane l (Bld)on 05-04-2024 Basophils (Bld) [#/Vol] 0.03 10*3/uL Normal <0.11 [facility] Comment on above: Order Comment: Speci men Type: BLOOD SPECIMENOrdering Facility: [facility] Address: [address] [place] [address] Performed By: #### 5 7021-8 ####[facility]ITALWAZLIA [id number] [place] [address] [place] Basophils/100 WBC (Bld) 0.4 % Normal [facility] Comment on above: Order Comment: Speci men Type: BLOOD SPECIMENOrdering Facility: [facility] Address: [address] [place] [address] Performed By: #### 5 7021-8 ####[facility] [id number] [place] [address] [place] Differential cell count method Nom (Bld) Auto Normal [facility] Comment on above: Order Comment: Speci men Type: BLOOD SPECIMENOrdering Facility: [facility] Address: [address] [place] [address] Performed By: #### 5 7021-8 ####[facility] [id number] [place] [address] [place] Eosinophils (Bld) [#/Vol] 0.07 10*3/uL Normal <0.46 [facility] Comment on above: Order Comment: Speci men Type: BLOOD SPECIMENOrdering Facility: [facility] Address: [address] [place] [address] Performed By: #### 5 7021-8 ####[facility] [id number] [place] [address] [place] Eosinophils/100 WBC (Bld) 0.8 % Normal [facility] Comment on above: Order Comment: Speci men Type: BLOOD SPECIMENOrdering Facility: [facility] Address: [address] [place] [address] Performed By: #### 5 7021-8 ####[facility] [id number] [place] [address] [place] Erythrocyte distribution width (RBC) [Ratio] 14.4 % Normal 11.5-15.0 [facility] Comment on above: Order Comment: Speci men Type: BLOOD SPECIMENOrdering Facility: [facility] Address: [address] [place] [address] Performed By: #### 5 7021-8 ####[facility]ITALAL[facility] [id number] [place] [address] [place] Hematocrit (Bld) [Volume fraction] 36.2 % Normal 36.0-46.0 [facility] Comment on above: Order Comment: Speci men Type: BLOOD SPECIMENOrdering Facility: [facility] Address: [address] [place] [address] Performed By: #### 5 7021-8 ####[facility]ITAL[facility] [id number] [place] [address] [place] Hemoglobin (Bld) [Mass/Vol] 12.0 g/dL Normal 11.5-15.5 [facility] Comment on above: Order Comment: Speci men Type: BLOOD SPECIMENOrdering Facility: [facility] Address: [address] [place] [address] Performed By: #### 5 7021-8 ####[facility] [id number] [place] [address] [place] Immature granulocytes (Bld) [#/Vol] 0.04 10*3/uL Normal <0.10 [facility] Comment on above: Order Comment: Speci men Type: BLOOD SPECIMENOrdering Facility: [facility] Address: [address] [place] [address] Performed By: #### 5 7021-8 ####[facility]ITAL[facility] [id number] [place] [address] [place] Immature granulocytes/100 WBC (Bld) 0.5 % Normal [facility] Comment on above: Order Comment: Speci men Type: BLOOD SPECIMENOrdering Facility: [facility] Address: [address] [place] [address] Performed By: #### 5 7021-8 ####[facility] [id number] [place] [address] [place] Lymphocytes (Bld) [#/Vol] 1.39 10*3/uL Normal 1.00-4.00 [facility] Comment on above: Order Comment: Speci men Type: BLOOD SPECIMENOrdering Facility: [facility] Address: [address] [place] [address] Performed By: #### 5 7021-8 ####[facility] [id number] [place] [address] [place] Lymphocytes/100 WBC (Bld) 16.4 % Normal [facility] Comment on above: Order Comment: Speci men Type: BLOOD SPECIMENOrdering Facility: [facility] Address: [address] [place] [address] Performed By: #### 5 7021-8 ####[facility] [id number] [place] [address] [place] MCH (RBC) [Entitic mass] 26.7 pg Normal 26.0-34.0 [facility] Comment on above: Order Comment: Speci men Type: BLOOD SPECIMENOrdering Facility: [facility] Address: [address] [place] [address] Performed By: #### 5 7021-8 ####[facility] [id number] [place] [address] [place] MCHC (RBC) [Mass/Vol] 33.1 g/dL Normal 30.5-36.0 [facility] Comment on above: Order Comment: Speci men Type: BLOOD SPECIMENOrdering Facility: [facility] Address: [address] [place] [address] Performed By: #### 5 7021-8 ####[facility] [id number] [place] [address] [place] MCV (RBC) [Entitic vol] 80.4 fL Normal 80.0-100.0 [facility] Comment on above: Order Comment: Speci men Type: BLOOD SPECIMENOrdering Facility: [facility] Address: [address] [place] [address] Performed By: #### 5 7021-8 ####[facility] [id number] [place] [address] [place] Monocytes (Bld) [#/Vol] 0.47 10*3/uL Normal <0.87 [facility] Comment on above: Order Comment: Speci men Type: BLOOD SPECIMENOrdering Facility: [facility] Address: [address] [place] [address] Performed By: #### 5 7021-8 ####[facility] [id number] [place] [address] [place] Monocytes/100 WBC (Bld) 5.5 % Normal [facility] Comment on above: Order Comment: Speci men Type: BLOOD SPECIMENOrdering Facility: [facility] Address: [address] [place] [address] Performed By: #### 5 7021-8 ####[facility] [id number] [place] [address] [place] Neutrophils (Bld) [#/Vol] 6.49 10*3/uL Normal 1.45-7.50 [facility] Comment on above: Order Comment: Speci men Type: BLOOD SPECIMENOrdering Facility: [facility] Address: [address] [place] [address] Performed By: #### 5 7021-8 ####[facility] [id number] [place] [address] [place] Neutrophils/100 WBC (Bld) 76.4 % Normal [facility] Comment on above: Order Comment: Speci men Type: BLOOD SPECIMENOrdering Facility: [facility] Address: [address] [place] [address] Performed By: #### 5 7021-8 ####[facility]PITALPETEYPrem [id number] [place] [address] [place] Nucleated RBC (Bld) [#/Vol] 10*3/uL Normal <0.01 [facility] Comment on above: Order Comment: Speci men Type: BLOOD SPECIMENOrdering Facility: [facility] Address: [address] [place] [address] Performed By: #### 5 7021-8 ####[facility] [id number] [place] [address] [place] Nucleated RBC/100 WBC (Bld) [Ratio] 0.0 /100 WBC Normal [facility] Comment on above: Order Comment: Speci men Type: BLOOD SPECIMENOrdering Facility: [facility] Address: [address] [place] [address] Performed By: #### 5 7021-8 ####[facility]PITALPETEYLIA [id number] [place] [address] [place] Platelet mean volume (Bld) [Entitic vol] 8.7 fL Low 9.0-12.7 [facility] Comment on above: Order Comment: Speci men Type: BLOOD SPECIMENOrdering Facility: [facility] Address: [address] [place] [address] Performed By: #### 5 7021-8 ####[facility]ITALWAKEFIELDNCLIA [id number] [place] [address] [place] Platelets (Bld) [#/Vol] 269 10*3/uL Normal 150-400 [facility] Comment on above: Order Comment: Speci men Type: BLOOD SPECIMENOrdering Facility: [facility] Address: [address] [place] [address] Performed By: #### 5 7021-8 ####[facility]PITALNCLIA [id number] [place] [address] [place] RBC (Bld) [#/Vol] 4.50 10*6/uL Normal 3.90-5.20 [facility] Comment on above: Order Comment: Speci men Type: BLOOD SPECIMENOrdering Facility: [facility] Address: [address] [place] [address] Performed By: #### 5 7021-8 ####[facility]ITALNCL[facility] [id number] [place] [address] [place] WBC (Bld) [#/Vol] 8.49 10*3/uL Normal 3.70-11.00 [facility] Comment on above: Order Comment: Speci men Type: BLOOD SPECIMENOrdering Facility: [facility] Address: [address] [place] [address] Performed By: #### 5 7021-8 ####[facility]PITALNCLIA [id number] [place] [address] [place] Examination level ultrasound on 05-04-2024 Indication dating Impression Maternal Structures: Right Ovary: Size 20 mm x 25 mm x 20 mm Left Ovary: Size 29 mm x 26 mm x 19 mm - Single, live, intrauterine . - An intrauterine gestational sac with a yolk sac and pole is present. - [place] rump length measurement is consistent with the [...] By: Dayana Perry M.D. MATERNAL MEDICINE [facility] Radiology Study observation (narrative) [facility] HBV surface Ag Ser Qlon 04-15 HBV surface Ag Ql (S) Negative Normal Negative [facility] Comment on above: Order Comment: Speci men Type: BLOOD SPECIMENOrdering Facility: [facility] Address: [address] [place] [address] Performed By: #### 7 3752-8, 5195-3, 83446-3 ####[facility] LABCLIA [id number] [place] [address] [place] HCV Ab Ser Qlon 05-04-2024 HCV Ab Ql (S) Negative Normal Negative [facility] Comment on above: Order Comment: Speci men Type: BLOOD SPECIMENOrdering Facility: [facility] Address: [address] [place] [address] Result Comment: The result suggests no evidence of active infection with Hepatitis C virus. Should recent infection be suspected, repeat testing may be considered 4-6 weeks after this draw. Performed By: #### 1 6128-1 ####[facility] LABCLIA [id number] [place] [address] [place] HIV 1+2 Ab IA Qlon HIV 1 and 2 Ab IA.rapid Nom (S/P/Bld) Normal [facility] Comment on above: Order Comment: Speci men Type: BLOOD SPECIMENOrdering Facility: [facility] Address: [address] [place] [address] Result Comment: Test not indicated. Performed By: #### 7 3752-8, 5195-3, 57840-4 ####[facility] LABIA [id number] [place] [address] [place] HIV 1+2 Ab+HIV1 p24 Ag IA Ql Non-Reactive Normal Nonreactive [facility] Comment on above: Order Comment: Speci men Type: BLOOD SPECIMENOrdering Facility: [facility] Address: [address] [place] [address] Performed By: #### 7 3752-8, 5195-3, 57990-1 ####[facility] LABIA [id number] [place] [address] [place] HIV immunoassay testing algorithm interpretation (S/P/Bld) [Interp] Normal [facility] Comment on above: Order Comment: Speci men Type: BLOOD SPECIMENOrdering Facility: [facility] Address: [address] [place] [address] Result Comment: No e vidence of HIV-1 or HIV-2 infection. Should recent infection be suspected, repeat testing may be considered 2-3 weeks after this draw. [facility] Rev. Code 3701.243(E): This information has been [...] diagnoses. Performed By: #### 7 3752-8, 5195-3, 63734-4 ####[facility] LABCLIA [id number] [address] [place] HbA1c (Bld)on 05-04-2024 Average glucose Estimated from glycated hemoglobin (Bld) [Mass/Vol] 97 mg/dL Normal [facility] Comment on above: Order Comment: Speci men Type: BLOOD SPECIMENOrdering Facility: [facility] Address: [address] [place] [address] Result Comment: eAG: (Estimated average glucose) is a calculated value from HgbA1c and is dairy supplies sales representative of the average blood glucose level in the last 2-3 month period. Performed By: #### 5 5454-3 ####[facility] LABCLIA [id number] [address] OF [facility] HbA1c (Bld) [Mass fraction] 5.0 % Normal 4.3-5.6 [facility] Comment on above: Order Comment: Speci men Type: BLOOD SPECIMENOrdering Facility: [facility] Address: [address] [place] [address] Result Comment: Amer [place] Diabetes Association guidelines indicate that patients with HgbA1c in the range 5.7-6.4% are at increased risk for development of diabetes, and intervention by lifestyle modification may be beneficial. HgbA1c greater or equal to 6.5% is considered diagnostic of diabetes. Performed By: #### 5 5454-3 ####[facility] LABCLIA [id number] [place] [address] [place] RUBELLA IGG ANTIBODYon 05-04 RUBELLA IGG AB, QUAL Positive Normal Positive [facility] Comment on above: Order Comment: Carlie mcneill Type: BLOOD SPECIMENOrdering Facility: [facility] Address: [address] [place] [address] Result Comment: The result suggests recent or past exposure to Rubella virus or history of Rubella vaccination. Positive result may also be seen due to presence of passively-transferred antibodies. Please correlate with patient's history. Performed By: #### R UBIGG ####[facility] LABCLIA [id number] [place] [address] [place] Reagin and Treponema pallidu m IgG and IgM [Interp]on 05-04-2024 T. pallidum IgG+IgM IA Ql (S) Non-Reactive Normal Nonreactive [facility] Comment on above: Order Comment: Speci osito Type: BLOOD SPECIMENOrdering Facility: [facility] Address: [address] [place] [address] Performed By: #### 7 3752-8, 5195-3, 47116-5 ####[facility] LABIA [id number] [place] [address] [place] Reagin+T pallidum IgG+IgM Se rPl-Impon 05-04-2024 Reagin and Treponema pallidum IgG and IgM [Interp] Cannot exclude recent Treponemal infection if specimen collected within 7-10 days after appearance of suspect lesions or 2-3 weeks after an exposure. Clinical correlation is required. Normal [facility] Comment on above: Order Comment: Aurorai osito Type: BLOOD SPECIMENOrdering Facility: [facility] Address: [address] [place] [address] Performed By: #### 7 3752-8, 5195-3, 21182-1 ####[facility] LABCLIA [id number] [place] [address] [place] TYPE + SCREEN PRENATALon ABO A Normal [facility] Comment on above: Order Comment: Speci men Type: BLOOD SPECIMEN [facility] Address: [address] [place] [address] Performed By: #### T SPN #### [facility] CLIA [id number] [address] [place] [address] [place] Rh Nom (Bld) Positive Normal [facility] Comment on above: Order Comment: Speci men Type: BLOOD SPECIMEN [facility] Address: [address] [place] [address] Performed By: #### T SPN #### [facility] BLOOD B[facility] CLIA [id number] [address] [place] [address] [place] TYPE AND SCREEN EXPIRATION 05/07/2024 23:59 Normal [facility] Comment on above: Order Comment: Speci men Type: BLOOD SPECIMEN [facility] Address: [address] [place] [address] Performed By: #### T SPN #### [facility] BLOOD BANK CLIA [id number] [address] [place] [address] [place] Bacteria Ur Culton Bacteria identified Cx Nom (U) ORGANISM ID: 1 10,000 -<50,000 CFU/ml Normal urogenital leandro Normal [facility] Comment on above: Performed By: #### 6 30-4 ####[facility] LABCLIA [id number] [address] [place] C. trachomatis+N. gonorrhoea e DNA LUPIS+probe Ql (Unsp spec)on 04-19-2024 C. trachomatis rRNA LUPIS+probe Ql (Unsp spec) Not detected Normal Not detected [facility] Comment on above: Order Comment: Speci men Type: SWABOrdering Facility: [facility] Address: [address] [place] [address] Performed By: #### 3 6902-5 ####[facility] LABCLIA [id number] [address] [place] N. gonorrhoeae rRNA LUPIS+probe Ql (Unsp spec) Not detected Normal Not detected [facility] Comment on above: Order Comment: Speci men Type: SWABOrdering Facility: [facility] Address: [address] [place] [address] Performed By: #### 3 6902-5 ####[facility] LABCLIA [id number] [address] [place] POC ASSOCIATE ACCOUNT EXECUTIVE ULTRASOUNDon 04-19-19 Indication Confirmation of intrauterine . [...] By: Mai Blanton CNP MATERNAL MEDICINE [facility] Radiology Study observation (narrative) [facility] Urinalysis complete panel (U )on 03-10-2023 Bacteria LM.HPF (Urine sed) [#/Area] Negative Negative /HPF [facility] Bilirubin Ql (U) Negative Negative [facility] Clarity (Unsp spec) Clear Clear [facility] Color (U) Dark Yellow Abnormal Yellow [facility] Epithelial cells LM.HPF (Urine sed) [#/Area] None Seen [facility] Glucose Test strip (U) [Mass/Vol] Negative Negative [facility] Hemoglobin Ql (U) 1+ Abnormal Negative [facility] Hyaline casts (Urine sed) [#/Area] 0 /[LPF] 0 /LPF [facility] Ketones Ql (U) Negative Negative [facility] Leukocyte esterase Test strip Ql (U) 3+ Abnormal Negative [facility] Nitrite Ql (U) Negative Negative [facility] pH (U) 6.5 [pH] <8.5 [facility] Protein (U) [Mass/Vol] Negative Negative [facility] RBC LM.HPF (Urine sed) [#/Area] 6-10 /HPF Abnormal 0-2 /HPF [facility] Specific gravity (U) [Rel density] 1.011 1.005 - 1.030 [facility] Urobilinogen Ql (U) 1.0 EU/dL 0.2-1.0 EU/dL [facility] WBC LM.HPF (Urine sed) [#/Area] 11-20 /HPF Abnormal 0-5 /HPF [facility] Absolute lymphocyte countOrd ered By: Dr. Zelaya on 09-16-2022 Lymphocytes Auto (Unsp spec) [#/Vol] 1.84 10*3/uL 0.83-4.51 [facility] Basophil percentageOrdered B y: Dr. Zelaya on 09-16-2022 Basophils/100 WBC (Bld) 0.3 % 0-1 [facility] Bilirubin [Mass/Vol] 0.20 mg/dL 0.20-1.00 [facility] Comment on above: For patients on eltr ombopag therapy, use of Dimension [place] TBIL is not recommended. Chloride [Moles/Vol] 106 mmol/L 98-107 [facility] Eosinophils/100 WBC (Bld) 0.5 % 0-5 [facility] Glucose [Mass/Vol] 92 mg/dL 74-106 [facility] Neutrophils (Bld) [#/Vol] 10.9 10*3/uL 2.0-7.7 [facility] Neutrophils/100 WBC (Bld) 81.2 % 47-70 [facility] Potassium [Moles/Vol] 4.1 mmol/L 3.5-5.1 [facility] Protein [Mass/Vol] 8.2 g/dL 6.4-8.2 [facility] Sodium [Moles/Vol] 136 mmol/L 136-145 [facility] WBC (Bld) [#/Vol] 13.4 10*3/uL 4.4-11.0 [facility] Blood erythrocytes count (nu mber/volume)Ordered By: Dr. Zelaya on 09-16-2022 RBC (Bld) [#/Vol] 4.61 10*6/uL 4.2-5.4 [facility] Blood hemoglobin measurement (mass/volume)Ordered By: Dr. Zelaya on 09-16-2022 Hemoglobin (Bld) [Mass/Vol] 12.6 g/dL 12.0-15.0 [facility] Blood lymphocytes/100 leukoc ytesOrdered By: Dr. Zelaya on 09-16-2022 Lymphocytes/100 WBC (Bld) 13.7 % 19-41 [facility] Blood monocytes/100 leukocyt esOrdered By: Dr. Zelaya on 09-16-2022 Monocytes/100 WBC (Bld) 4.0 % 0-10 [facility] Blood platelet mean volumeOr dered By: Dr. Zelaya on 09-16-2022 Platelet mean volume (Bld) [Entitic vol] 8.5 fL 6.2-12.0 [facility] Determination of erythrocyte mean corpuscular volume (MCV)Ordered By: Dr. Zelaya on 09-16-2022 MCV (RBC) [Entitic vol] 83.7 fL 81-99 [facility] Hematocrit Auto (Bld) [Volum e fraction]Ordered By: Dr. Zelaya on 09-16-2022 Hematocrit (Bld) [Volume fraction] 38.6 % 37-47 [facility] Laboratory - Chemistry and C hemistry - challengeOrdered By: Dr. Zelaya on 09-16-2022 ALP [Catalytic activity/Vol] 78 U/L 45-117 [facility] ALT [Catalytic activity/Vol] 19 U/L 13-56 [facility] CO2 [Moles/Vol] 23.0 mmol/L 21.0-32.0 [facility] Globulin (S) [Mass/Vol] 4.6 g/dL 2.2-4.2 [facility] Urea nitrogen/Creatinine [Mass ratio] 14.6 mg/mg 10-20 [facility] - Hematology and Cell countsOrdered By: Dr. Zelaya on 09-16-2022 Erythrocyte distribution width (RBC) [Entitic vol] 41.5 fL 35.1-43.9 [facility] Erythrocyte distribution width (RBC) [Ratio] 13.5 % 11.6-14.6 [facility] Immature granulocytes/100 WBC (Bld) 0.300 % 0.0-0.9 [facility] Comment on above: IG% - Immature Granu locytes (promyelocytes, myelocytes and metamyelocytes) > 1% indicates that a LEFT SHIFT is Present. MCH (RBC) [Entitic mass] 27.3 pg 27.0-32.0 [facility] Nucleated RBC/100 WBC (Bld) [Ratio] 0 % 0-5 [facility] MCHC Auto (RBC) [Mass/Vol]Or dered By: Dr. Zelaya on 09-16-2022 MCHC (RBC) [Mass/Vol] 32.6 g/dL 32-36 [facility] No Panel InformationOrdered By: Dr. Zelaya on 09-16-2022 D-Dimer Quantitative (PE/DVT) 0.29 FEU/ug/m 0.27-0.49 [facility] Comment on above: NORMAL D-Dimer level (<0.50) indicates no DVT or PE. Estimated Creatinine Clearance Calc 113.25 ml/min [facility] Estimated GFR (MDRD) Amer 129 mL/min >60 [facility] Comment on above: GFR Calc Estimated GFR (MDRD) Non-Af Amer 107 mL/min >60 [facility] Comment on above: Non- GFR Calc Troponin I High Sensitivity < 3 pg/mL 3.0-54.0 [facility] Comment on above: Please Note: New [place] t Units and Gender Specific Reference Ranges. For more information see Policy Stat Procedure [place] High Sensitivity Troponin (TNIH) and attachments. Platelets bldOrdered By: Dr. Zelaya on 09-16-2022 Platelets (Bld) [#/Vol] 367 10*3/uL 150-450 [facility] Serum or plasma albumin magda urement (mass/volume)Ordered By: Dr. Zelaya on 09-16-2022 Albumin [Mass/Vol] 3.6 g/dL 3.2-5.0 [facility] Serum or plasma albumin/glob ulin mass ratioOrdered By: Dr. Zelaya on 09-16-2022 Albumin/Globulin [Mass ratio] 0.8 {ratio} 0.9-2.4 [facility] Serum or plasma calcium magda urement (mass/volume)Ordered By: Dr. Zelaya on 09-16-2022 Calcium [Mass/Vol] 9.4 mg/dL 8.5-10.1 [facility] Serum or plasma creatinine m easurement (mass/volume)Ordered By: Dr. Zelaya on 09-16-2022 Creatinine [Mass/Vol] 0.68 mg/dL 0.55-1.02 [facility] Comment on above: The validity of the calculated GFR & GFRAA in patients over 70 years has not been determined. Clinical correlation is essential. Serum or plasma urea nitroge n measurement (mass/volume)Ordered By: Dr. Zelaya on 09-16-2022 Urea nitrogen [Mass/Vol] 10 mg/dL 7-18 [facility] Thin prep Papanicolaou smear with manual screeningOrdered By: Dr. Zelaya on 09-16-2022 Thin prep Papanicolaou smear with manual screening 11 U/L 15-37 [facility] Thin prep Papanicolaou smear with manual screening 7 5-15 [facility] XR CHEST 2V FRONTAL/LATon [facility] XR Chest PA and Lateralon IMPRESSION: No acute radiographic abnormality. [facility]engine[facility] Transcribe Date/Time: Sep 16 2022 9:37A Dictated by : AMARIS DHILLON MD This examination was interpreted and the report reviewed and electronically signed by: AMARIS DHILLON MD on Sep 16 2022 9:37AM [facility] DIVISION OF RADIOLOGY * * *Final Report* [...] Unremarkable. DIVISION OF RADIOLOGY Provider, Lian Jenny [facility] - 09/16/2022 * * *Final Report* * [...] Unremarkable. IMPRESSION IMPRESSION: No acute radiographic abnormality. 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: [facility] Transcribe Date/Time: Sep 16 2022 9:37A Dictated by : AMARIS DHILLON MD This examination was interpreted and the report reviewed and electronically signed by: AMARIS DHILLON MD on Sep 16 2022 9:37AM EST [facility] Radiology Study observation (narrative) [facility] XR Chest PA and LateralOrder ed By: [facility] Provider on 09-16-2022 [facility] Glucose Glucometer (BldC) [M ass/Vol]on 01-05-2022 Glucose [Mass/Vol] 99 mg/dL 74-106 [facility] Work Phone: Comment on above: MANAGEMENT OF PATIEN T CARE PER NURSING PROTOCOL Absolute lymphocyte counton 01-04-2022 Lymphocytes Auto (Unsp spec) [#/Vol] 1.74 10*3/uL 0.83-4.51 [facility] Work Phone: Basophil percentageon 2021 Basophils/100 WBC (Bld) 0.2 % 0-1 [facility] Work Phone: [phone] Eosinophils/100 WBC (Bld) 1.5 % 0-5 [facility] Work Phone: Neutrophils (Bld) [#/Vol] 8.3 10*3/uL 2.0-7.7 [facility] Work Phone: [phone] Neutrophils/100 WBC (Bld) 75.4 % 47-70 [facility] Work Phone: [phone] WBC (Bld) [#/Vol] 11.0 10*3/uL 4.4-11.0 [facility] Work Phone: [phone] Blood erythrocytes count (nu mber/volume)on 01-04-2022 RBC (Bld) [#/Vol] 4.34 10*6/uL 4.2-5.4 [facility] Work Phone: [phone] Blood hemoglobin measurement (mass/volume)on 01-04-2022 Hemoglobin (Bld) [Mass/Vol] 12.0 g/dL 12.0-15.0 [facility] Work Phone: [phone] Blood lymphocytes/100 leukoc yteson 01-04-2022 Lymphocytes/100 WBC (Bld) 15.9 % 19-41 [facility] Work Phone: Blood monocytes/100 leukocyt eson 01-04-2022 Monocytes/100 WBC (Bld) 6.5 % 0-10 [facility] Work Phone: [phone] Blood platelet mean volumeon 01-04-2022 Platelet mean volume (Bld) [Entitic vol] 10.3 fL 6.2-12.0 [facility] Work Phone: Determination of erythrocyte mean corpuscular volume (MCV)on 01-04-2022 MCV (RBC) [Entitic vol] 83.6 fL 81-99 [facility] Work Phone: Hematocrit Auto (Bld) [Volum e fraction]on 01-04-2022 Hematocrit (Bld) [Volume fraction] 36.3 % 37-47 [facility] Work Phone: Laboratory - Hematology and Cell countson 01-04-2022 Erythrocyte distribution width (RBC) [Entitic vol] 47.8 fL 35.1-43.9 [facility] Work Phone: Erythrocyte distribution width (RBC) [Ratio] 15.9 % 11.6-14.6 [facility] Work Phone: Immature granulocytes/100 WBC (Bld) 0.500 % 0.0-0.9 [facility] Work Phone: Comment on above: IG% - Immature Granu locytes (promyelocytes, myelocytes and metamyelocytes) > 1% indicates that a LEFT SHIFT is Present. MCH (RBC) [Entitic mass] 27.6 pg 27.0-32.0 [facility] Work Phone: [phone] Nucleated RBC/100 WBC (Bld) [Ratio] 0 % 0-5 [facility] Work Phone: MCHC Auto (RBC) [Mass/Vol]on 01-04-2022 MCHC (RBC) [Mass/Vol] 33.1 g/dL 32-36 [facility] Work Phone: Platelets bldon 01-04-2022 Platelets (Bld) [#/Vol] 290 10*3/uL 150-450 [facility] Work Phone: URINE OB DIP B/Oon 2 Glucose Ql (U) Negative Neg mg/dL [facility] Protein.monoclonal (U) [Mass/Vol] Negative Neg mg/dL [facility] URINE OB DIP B/Oon 2 Glucose Ql (U) Negative Neg mg/dL [facility] Protein.monoclonal (U) [Mass/Vol] Negative Neg mg/dL [facility] URINE OB DIP B/Oon 2 Glucose Ql (U) Negative Neg mg/dL [facility] Protein.monoclonal (U) [Mass/Vol] Negative Neg mg/dL [facility] Absolute lymphocyte counton 12-06-2021 Lymphocytes Auto (Unsp spec) [#/Vol] 1.96 10*3/uL 0.83-4.51 [facility] Work Phone: Basophil percentageon 2021 Basophils/100 WBC (Bld) 0.2 % 0-1 [facility] Work Phone: [phone] Eosinophils/100 WBC (Bld) 2.1 % 0-5 [facility] Work Phone: [phone] Neutrophils (Bld) [#/Vol] 6.1 10*3/uL 2.0-7.7 [facility] Work Phone: [phone] Neutrophils/100 WBC (Bld) 68.3 % 47-70 [facility] Work Phone: [phone] WBC (Bld) [#/Vol] 8.9 10*3/uL 4.4-11.0 [facility] Work Phone: [phone] Blood erythrocytes count (nu mber/volume)on 12-06-2021 RBC (Bld) [#/Vol] 4.36 10*6/uL 4.2-5.4 [facility] Work Phone: [phone] Blood hemoglobin measurement (mass/volume)on 12-06-2021 Hemoglobin (Bld) [Mass/Vol] 11.8 g/dL 12.0-15.0 [facility] Work Phone: [phone] Blood lymphocytes/100 leukoc yteson 12-06-2021 Lymphocytes/100 WBC (Bld) 22.1 % 19-41 [facility] Work Phone: [phone] Blood monocytes/100 leukocyt eson 12-06-2021 Monocytes/100 WBC (Bld) 7.1 % 0-10 [facility] Work Phone: [phone] Blood platelet mean volumeon 12-06-2021 Platelet mean volume (Bld) [Entitic vol] 9.6 fL 6.2-12.0 [facility] Work Phone: Determination of erythrocyte mean corpuscular volume (MCV)on 12-06-2021 MCV (RBC) [Entitic vol] 82.8 fL 81-99 [facility] Work Phone: Hematocrit Auto (Bld) [Volum e fraction]on 12-06-2021 Hematocrit (Bld) [Volume fraction] 36.1 % 37-47 [facility] Work Phone: [phone] INR in Blood by Coagulation assayon 12-06-2021 INR Coag (Bld) [Relative time] 1.0 {INR} [facility] Work Phone: [phone] Laboratory - Coagulationon 0 12-06-2021 aPTT Coag (Bld) [Time] 34.0 s 24.1-36.2 [facility] Work Phone: [phone] PT Coag (PPP) [Time] 13.3 s 11.7-14.9 [facility] Work Phone: [phone] Laboratory - Hematology and Cell countson 12-06-2021 Erythrocyte distribution width (RBC) [Entitic vol] 48.2 fL 35.1-43.9 [facility] Work Phone: [phone] Erythrocyte distribution width (RBC) [Ratio] 15.9 % 11.6-14.6 [facility] Work Phone: [phone] Immature granulocytes/100 WBC (Bld) 0.200 % 0.0-0.9 [facility] Work Phone: [phone] Comment on above: IG% - Immature Granu locytes (promyelocytes, myelocytes and metamyelocytes) > 1% indicates that a LEFT SHIFT is Present. MCH (RBC) [Entitic mass] 27.1 pg 27.0-32.0 [facility] Work Phone: [phone] Nucleated RBC/100 WBC (Bld) [Ratio] 0 % 0-5 [facility] Work Phone: [phone] MCHC Auto (RBC) [Mass/Vol]on 12-06-2021 MCHC (RBC) [Mass/Vol] 32.7 g/dL 32-36 [facility] Work Phone: [phone] Panel Informationon 12-06 Fibrinogen 471 mg/dl 203-444 [facility] Work Phone: [phone] Platelets bldon 12-06-2021 Platelets (Bld) [#/Vol] 325 10*3/uL 150-450 [facility] Work Phone: OBSTETRIC ULTRASOUND WHIon 0 12-04-2021 [facility] URINE OB DIP B/Oon 2 Glucose Ql (U) Negative Neg mg/dL [facility] Protein.monoclonal (U) [Mass/Vol] Negative Neg mg/dL [facility] URINE OB DIP B/Oon 2 Glucose Ql (U) Negative Neg mg/dL [facility] Protein.monoclonal (U) [Mass/Vol] Negative Neg mg/dL [facility] URINE OB DIP B/Oon 2 Glucose Ql (U) Negative Neg mg/dL [facility] Protein.monoclonal (U) [Mass/Vol] Negative Neg mg/dL [facility] URINE OB DIP B/Oon 2 Glucose Ql (U) Negative Neg mg/dL [facility] Protein.monoclonal (U) [Mass/Vol] Negative Neg mg/dL [facility] URINE OB DIP B/Oon 2 Glucose Ql (U) Negative Neg mg/dL [facility] Protein.monoclonal (U) [Mass/Vol] Negative Neg mg/dL [facility] OBSTETRIC ULTRASOUND WHIon 0 08-13-2021 [facility] URINE OB DIP B/Oon 2 Glucose Ql (U) Negative Neg mg/dL [facility] Protein.monoclonal (U) [Mass/Vol] Negative Neg mg/dL [facility] URINE OB DIP B/Oon 2 Glucose Ql (U) Negative Neg mg/dL [facility] Protein.monoclonal (U) [Mass/Vol] Negative Neg mg/dL [facility] Vital Signs Date Time Vital Sign Value Performing Clinician Facility 11-24-2024 08:58-0400 Body mass index (BMI) [Ratio] 32.95 kg/m2 Kasey Yang MD Work Phone: [facility] 11-24-2024 08:58-0400 Body weight 89.81 kg Kasey Yang MD Work Phone: [facility] 11-24-2024 08:58-0400 Diastolic blood pressure 68 mm[Hg] Kasey Yang MD Work Phone: [facility] 11-24-2024 08:58-0400 Systolic blood pressure 124 mm[Hg] Kasey Yang MD Work Phone: [facility] 11-15-2024 14:53-0400 Body temperature 97.8 [degF] Dr. Kathy Vyas MD Work Phone: [facility] 11-15-2024 14:53-0400 Diastolic blood pressure 64 mm[Hg] Dr. Kathy Vyas MD Work Phone: [facility] 11-15-2024 14:53-0400 Heart rate 90 /min Dr. Kathy Vyas MD Work Phone: [facility] 11-15-2024 14:53-0400 Respiratory rate 16 /min Dr. Kathy Vyas MD Work Phone: [facility] 11-15-2024 14:53-0400 SaO2% (BldA) [Mass fraction] 99 % Dr. Kathy Vyas MD Work Phone: [facility] 11-15-2024 14:53-0400 Systolic blood pressure 135 mm[Hg] Dr. Kathy Vyas MD Work Phone: [facility] 11-15-2024 10:46-0400 Body height 167.[address] Kathy Vyas MD Work Phone: [facility] 11-15-2024 10:46-0400 Body mass index (BMI) [Ratio] 31.5 kg/m2 Dr. Kathy Vyas MD Work Phone: [facility] 11-15-2024 10:46-0400 Body weight 88.[address] Kathy Vyas MD Work Phone: [facility] 11-15-2024 10:05-0400 Body mass index (BMI) [Ratio] 32.31 kg/m2 Dante Waite MD Work Phone: [facility] 11-15-2024 10:05-0400 Body weight 88.18 kg Dante Waite MD Work Phone: [facility] 11-15-2024 10:05-0400 Diastolic blood pressure 80 mm[Hg] Dante Waite MD Work Phone: [facility] 11-15-2024 10:05-0400 Systolic blood pressure 122 mm[Hg] Dante Waite MD Work Phone: [facility] 11-12-2024 10:49-0400 Body mass index (BMI) [Ratio] 31.75 kg/m2 Dante Waite MD Work Phone: [facility] 11-12-2024 10:49-0400 Body weight 86.64 kg Dante Waite MD Work Phone: [facility] 11-12-2024 10:49-0400 Diastolic blood pressure 78 mm[Hg] Dante Waite MD Work Phone: [facility] 11-12-2024 10:49-0400 Systolic blood pressure 124 mm[Hg] Dante Waite MD Work Phone: [facility] 11-10-2024 10:41-0400 Body mass index (BMI) [Ratio] 31.91 kg/m2 Dante Waite MD Work Phone: [facility] 11-10-2024 10:41-0400 Body weight 87.09 kg Dante Waite MD Work Phone: [facility] 11-10-2024 10:41-0400 Diastolic blood pressure 78 mm[Hg] Dante Waite MD Work Phone: [facility] 11-10-2024 10:41-0400 Systolic blood pressure 116 mm[Hg] Dante Waite MD Work Phone: [facility] 10-27-2024 08:42-0400 Body mass index (BMI) [Ratio] 31.41 kg/m2 Dante Waiet MD Work Phone: [facility] 10-27-2024 08:42-0400 Body weight 85.73 kg Dante Waite MD Work Phone: [facility] 10-27-2024 08:42-0400 Diastolic blood pressure 72 mm[Hg] Dante Waite MD Work Phone: [facility] 10-27-2024 08:42-0400 Systolic blood pressure 114 mm[Hg] Dante Waite MD Work Phone: [facility] 10-13-2024 08:28-0400 Body mass index (BMI) [Ratio] 31.08 kg/m2 Dante Waite MD Work Phone: [facility] 10-13-2024 08:28-0400 Body weight 84.82 kg Dante Waite MD Work Phone: [facility] 10-13-2024 08:28-0400 Diastolic blood pressure 72 mm[Hg] Dante Waite MD Work Phone: [facility] 10-13-2024 08:28-0400 Systolic blood pressure 110 mm[Hg] Dante Waite MD Work Phone: [facility] 09-27-2024 08:44-0400 Body mass index (BMI) [Ratio] 30.91 kg/m2 Tara Parks APRN.CNM Work Phone: [facility] 09-27-2024 08:44-0400 Body temperature 98.01 [degF] Tara Parks APRN.CNM Work Phone: [facility] 09-27-2024 08:44-0400 Body weight 84.37 kg Tara Parks APRN.CNRenato Work Phone: [facility] 09-27-2024 08:44-0400 Diastolic blood pressure 73 mm[Hg] Tara Parks APRN.CNM Work Phone: [facility] 09-27-2024 08:44-0400 Heart rate 103 /min Tara Parks APRN.CNM Work Phone: [facility] 09-27-2024 08:44-0400 Systolic blood pressure 115 mm[Hg] Tara Parks APRN.CNM Work Phone: [facility] 09-15-2024 08:23-0400 Body mass index (BMI) [Ratio] 30.75 kg/m2 Dante Waite MD Work Phone: [facility] 09-15-2024 08:23-0400 Body weight 83.92 kg Dante Waite MD Work Phone: [facility] 09-15-2024 08:23-0400 Diastolic blood pressure 68 mm[Hg] Dante Waite MD Work Phone: [facility] 09-15-2024 08:23-0400 Systolic blood pressure 110 mm[Hg] Dante Waite MD Work Phone: [facility] 08-18-2024 08:21-0400 Body mass index (BMI) [Ratio] 29.75 kg/m2 Dante Waite MD Work Phone: [facility] 08-18-2024 08:21-0400 Body weight 81.19 kg Dante Waite MD Work Phone: [facility] 08-18-2024 08:21-0400 Diastolic blood pressure 68 mm[Hg] Dante Waite MD Work Phone: [facility] 08-18-2024 08:21-0400 Systolic blood pressure 106 mm[Hg] Dante Waite MD Work Phone: [facility] 07-21-2024 15:55-0400 Body mass index (BMI) [Ratio] 29.59 kg/m2 Macarena Perez APRN.SELECTOR PACKER Work Phone: [facility] 07-21-2024 15:55-0400 Body weight 80.74 kg Macarena Perez APRN.SELECTOR PACKER Work Phone: [facility] 07-21-2024 15:55-0400 Diastolic blood pressure 60 mm[Hg] Macarena Perez APRN.SELECTOR PACKER Work Phone: [facility] 07-21-2024 15:55-0400 Systolic blood pressure 110 mm[Hg] Macarena Perez ROGERS Work Phone: [facility] 06-23-2024 09:59-0400 Body mass index (BMI) [Ratio] 28.75 kg/m2 Dante Waite MD Work Phone: [facility] 06-23-2024 09:59-0400 Body weight 78.47 kg Dante Waite MD Work Phone: [facility] 06-23-2024 09:59-0400 Diastolic blood pressure 60 mm[Hg] Dante Waite MD Work Phone: [facility] 06-23-2024 09:59-0400 Systolic blood pressure 122 mm[Hg] Dante Waite MD Work Phone: [facility] 06-02-2024 11:23-0500 Body mass index (BMI) [Ratio] 28.42 kg/m2 Dante Waite MD Work Phone: [facility] 06-02-2024 11:23-0500 Body weight 77.56 kg Dante Waite MD Work Phone: [facility] 06-02-2024 11:23-0500 Diastolic blood pressure 68 mm[Hg] Dante Waite MD Work Phone: [facility] 06-02-2024 11:23-0500 Systolic blood pressure 122 mm[Hg] Dante Waite MD Work Phone: [facility] 05-18-2024 08:26-0500 Body mass index (BMI) [Ratio] 27.59 kg/m2 Dante Waite MD Work Phone: [facility] 05-18-2024 08:26-0500 Body weight 75.3 kg Dante Waite MD Work Phone: [facility] 05-18-2024 08:26-0500 Diastolic blood pressure 68 mm[Hg] Dante Waite MD Work Phone: [facility] 05-18-2024 08:26-0500 Systolic blood pressure 128 mm[Hg] Dante Waite MD Work Phone: [facility] 05-04-2024 08:48-0500 Body mass index (BMI) [Ratio] 27.92 kg/m2 Dante Waite MD Work Phone: [facility] 05-04-2024 08:48-0500 Body weight 76.2 kg Dante Waite MD Work Phone: [facility] 05-04-2024 08:48-0500 Diastolic blood pressure 64 mm[Hg] Dante Waite MD Work Phone: [facility] 05-04-2024 08:48-0500 Systolic blood pressure 110 mm[Hg] Dante Waite MD Work Phone: [facility] 04-19-2024 08:19-0500 Body mass index (BMI) [Ratio] 27.92 kg/m2 Mai Sebastian CLINICAL INFORMATION SYSTEMS DIRECTOR.SELECTOR PACKER Work Phone: [facility] 04-19-2024 08:19-0500 Body weight 76.2 kg Mai Franny CLINICAL INFORMATION SYSTEMS DIRECTOR.SELECTOR PACKER Work Phone: [facility] 04-19-2024 08:19-0500 Diastolic blood pressure 66 mm[Hg] Mai Sebastian CLINICAL INFORMATION SYSTEMS DIRECTOR.SELECTOR PACKER Work Phone: [facility] 04-19-2024 08:19-0500 Systolic blood pressure 122 mm[Hg] Mai Franny CLINICAL INFORMATION SYSTEMS DIRECTOR.SELECTOR PACKER Work Phone: [facility] 10-10-2023 13:44-0400 Body height 165.2 cm Dante Waite MD Work Phone: [facility] 10-10-2023 13:44-0400 Body mass index (BMI) [Ratio] 27.46 kg/m2 Dante Waite MD Work Phone: [facility] 10-10-2023 13:44-0400 Body weight 74.93 kg Dante Waite MD Work Phone: [facility] 10-10-2023 13:44-0400 Diastolic blood pressure 68 mm[Hg] Dante Waite MD Work Phone: [facility] 10-10-2023 13:44-0400 Systolic blood pressure 108 mm[Hg] Dante Waite MD Work Phone: [facility] 09-16-2022 10:55-0400 Diastolic blood pressure 69 mm[Hg] [facility] 09-16-2022 10:55-0400 Heart rate 72 /min [facility] 09-16-2022 10:55-0400 Respiratory rate 15 /min [facility] 09-16-2022 10:55-0400 SaO2% (BldA) [Mass fraction] 98 % [facility] 09-16-2022 10:55-0400 Systolic blood pressure 127 mm[Hg] [facility] 09-16-2022 09:55-0400 Body height 167.64 cm [facility] 09-16-2022 09:55-0400 Body mass index (BMI) [Ratio] 27.4 kg/m2 [facility] 09-16-2022 09:55-0400 Body temperature 97.8 [degF] [facility] 09-16-2022 09:55-0400 Body weight 77.11 kg [facility] 09-16-2022 08:55-0400 Body temperature 99.19 [degF] Best Lane MD Work Phone: [facility] 09-16-2022 08:55-0400 Body weight 77.[address] MD Work Phone: [facility] 09-16-2022 08:55-0400 Diastolic blood pressure 80 mm[Hg] Best Lane MD Work Phone: [facility] 09-16-2022 08:55-0400 Heart rate 102 /min Best Lane MD Work Phone: [facility] 09-16-2022 08:55-0400 Respiratory rate 21 /min Best Lane MD Work Phone: [facility] 09-16-2022 08:55-0400 SaO2% (BldA) [Mass fraction] 99 % Best Lane MD Work Phone: [facility] 09-16-2022 08:55-0400 Systolic blood pressure 110 mm[Hg] Best Lane MD Work Phone: [facility] 03-05-2022 11:36-0500 Body weight 76.2 kg Alban Hooker MD Work Phone: [facility] 03-05-2022 11:36-0500 Diastolic blood pressure 70 mm[Hg] Alban Hooker MD Work Phone: [facility] 03-05-2022 11:36-0500 Systolic blood pressure 112 mm[Hg] Alban Hooker MD Work Phone: [facility] 02-14-2022 10:36-0400 Body weight 74.84 kg Kasey Yang MD Work Phone: [facility] 02-14-2022 10:36-0400 Diastolic blood pressure 70 mm[Hg] Kasey Yang MD Work Phone: [facility] 02-14-2022 10:36-0400 Systolic blood pressure 118 mm[Hg] Kasey Yang MD Work Phone: [facility] 01-17-2022 10:54-0400 Body weight 74.84 kg Dante Waite MD Work Phone: [facility] 01-17-2022 10:54-0400 Diastolic blood pressure 72 mm[Hg] Dante Waite MD Work Phone: [facility] 01-17-2022 10:54-0400 Systolic blood pressure 112 mm[Hg] Dante Waite MD Work Phone: [facility] 01-05-2022 16:14-0400 Body temperature 98.9 [degF] [facility] Work Phone: 01-05-2022 16:14-0400 Diastolic blood pressure 75 mm[Hg] [facility] Work Phone: 01-05-2022 16:14-0400 Heart rate 93 /min [facility] Work Phone: 01-05-2022 16:14-0400 Respiratory rate 14 /min [facility] Work Phone: 01-05-2022 16:14-0400 SaO2% (BldA) [Mass fraction] 98 % [facility] Work Phone: 01-05-2022 16:14-0400 Systolic blood pressure 114 mm[Hg] [facility] Work Phone: 01-04-2022 07:15-0400 Body height 167.64 cm [facility] Work Phone: 01-04-2022 07:15-0400 Body mass index (BMI) [Ratio] 28.7 kg/m2 [facility] Work Phone: 01-04-2022 07:15-0400 Body weight 80.73 kg [facility] Work Phone: 01-01-2022 11:25-0400 Body weight 81.65 kg Dante Waite MD Work Phone: [facility] 01-01-2022 11:25-0400 Diastolic blood pressure 86 mm[Hg] Dante Waite MD Work Phone: [facility] 01-01-2022 11:25-0400 Systolic blood pressure 136 mm[Hg] Dante Waite MD Work Phone: [facility] 12-25-2021 09:18-0400 Body weight 78.93 kg Kasey Yang MD Work Phone: [facility] 12-25-2021 09:18-0400 Diastolic blood pressure 68 mm[Hg] Kasey Yang MD Work Phone: [facility] 12-25-2021 09:18-0400 Systolic blood pressure 110 mm[Hg] Kasey Yang MD Work Phone: [facility] 12-19-2021 15:10-0400 Body weight 79.83 kg Dante Waite MD Work Phone: [facility] 12-19-2021 15:10-0400 Diastolic blood pressure 72 mm[Hg] Dante Waite MD Work Phone: [facility] 12-19-2021 15:10-0400 Systolic blood pressure 104 mm[Hg] Dante Waite MD Work Phone: [facility] 12-13-2021 11:44-0400 Body weight 78.93 kg Dante Waite MD Work Phone: [facility] 12-13-2021 11:44-0400 Diastolic blood pressure 68 mm[Hg] Dante Waite MD Work Phone: [facility] 12-13-2021 11:44-0400 Systolic blood pressure 108 mm[Hg] Dante Waite MD Work Phone: [facility] 12-06-2021 17:45-0400 Heart rate 91 /min [facility] Work Phone: 12-06-2021 17:45-0400 SaO2% (BldA) [Mass fraction] 98 % [facility] Work Phone: 12-06-2021 17:44-0400 Diastolic blood pressure 85 mm[Hg] [facility] Work Phone: 12-06-2021 17:44-0400 Systolic blood pressure 139 mm[Hg] [facility] Work Phone: 12-06-2021 17:42-0400 Body height 167.64 cm [facility] Work Phone: 12-06-2021 17:42-0400 Body mass index (BMI) [Ratio] 28.3 kg/m2 [facility] Work Phone: 12-06-2021 17:42-0400 Body weight 79.7 kg [facility] Work Phone: 12-04-2021 09:46-0400 Body weight 78.93 kg Dante Waite MD Work Phone: [facility] 12-04-2021 09:46-0400 Diastolic blood pressure 74 mm[Hg] Dante Waite MD Work Phone: [facility] 12-04-2021 09:46-0400 Systolic blood pressure 102 mm[Hg] Dante Waite MD Work Phone: [facility] 11-20-2021 09:52-0400 Body weight 78.02 kg Dante Waite MD Work Phone: [facility] 11-20-2021 09:52-0400 Diastolic blood pressure 64 mm[Hg] Dante Waite MD Work Phone: [facility] 11-20-2021 09:52-0400 Systolic blood pressure 102 mm[Hg] Dante Waite MD Work Phone: [facility] 11-07-2021 13:25-0400 Body weight 79.38 kg Dante Waite MD Work Phone: [facility] 11-07-2021 13:25-0400 Diastolic blood pressure 70 mm[Hg] Dante Waite MD Work Phone: [facility] 11-07-2021 13:25-0400 Systolic blood pressure 124 mm[Hg] Dante Waite MD Work Phone: [facility] 10-09-2021 10:01-0400 Body weight 78.47 kg Dante Waite MD Work Phone: [facility] 10-09-2021 10:01-0400 Diastolic blood pressure 62 mm[Hg] Dante Waite MD Work Phone: [facility] 10-09-2021 10:01-0400 Systolic blood pressure 118 mm[Hg] Dante Waite MD Work Phone: [facility] 09-11-2021 09:38-0400 Body weight 75.75 kg Dante Waite MD Work Phone: [facility] 09-11-2021 09:38-0400 Diastolic blood pressure 68 mm[Hg] Dante Waite MD Work Phone: [facility] 09-11-2021 09:38-0400 Systolic blood pressure 114 mm[Hg] Dante Waite MD Work Phone: [facility] 08-13-2021 09:43-0400 Body weight 72.58 kg Dante Waite MD Work Phone: [facility] 08-13-2021 09:43-0400 Diastolic blood pressure 66 mm[Hg] Dante Waite MD Work Phone: [facility] 08-13-2021 09:43-0400 Systolic blood pressure 108 mm[Hg] Dante Waite MD Work Phone: [facility] 07-20-2021 09:50-0400 Body weight 71.22 kg Dante Waite MD Work Phone: [facility] 07-20-2021 09:50-0400 Diastolic blood pressure 66 mm[Hg] Dante Waite MD Work Phone: [facility] 07-20-2021 09:50-0400 Systolic blood pressure 118 mm[Hg] Dante Waite MD Work Phone: [facility] Encounters Encounter Date Encounter Type Care Provider Facility Start: 11-30-2024 ambulatory Dante Wylie y:[facility] Start: 11-24-2024 End: 11-24-2024 Patient encounter procedure Kasey Yang MD Work Phone: OB/Gynecology Comment on above: Supervision of high risk in third trimester (HCC) (Primary Dx); Hx of preeclampsia, prior , currently (HCC); Breech presentation with problem, single or unspecified fetus (HCC); Anemia during in third trimester (HCC); 38 weeks gestation of (HCC) Start: 11-24-2024 End: 11-24-2024 ambulatory KASEY YANG Facility:[facility] Start: 11-23-2024 End: 11-23-[facility]: 11-23-2024 End: 11-23-2024 Patient encounter procedure [facility] Comment on above: Population Health Na vigation Outreach ( to PCP/OB/) Start: 11-17-2024 End: 11-17-2024 ambulatory KATHY VYAS Facility:[facility] Start: 11-15-2024 End: 11-15-2024 Patient encounter procedure Tara Parks JUMA -[facility] Work Phone: Comment on above: 37 weeks gestation o f (HCC) (Primary Dx); Supervision of high risk in third trimester (HCC) Start: 11-15-2024 End: 11-15-[address] Kathy Vyas MD Work Phone: -[facility] Start: 11-12-2024 End: 11-12-2024 Patient encounter procedure Dante Waite MD Work Phone: OB/Gynecology Comment on above: Supervision of high risk in third trimester (HCC) (Primary Dx); Hx of preeclampsia, prior , currently (HCC); Breech presentation with problem, single or unspecified fetus (HCC); 36 weeks gestation of (HCC); Anemia during in third trimester (HCC) Start: 11-12-2024 End: 11-12-2024 ambulatory KATHY VYAS Facility:[facility] Start: 11-10-2024 End: 11-10-2024 Patient encounter procedure [...] of (HCC) Start: 10-27-2024 End: 10-27-2024 ambulatory [facility] Facility:[facility] Start: 10-13-2024 End: 10-13-2024 Patient encounter procedure Dante Waite MD Work Phone: OB/Gynecology Comment on above: Supervision of high risk in third trimester (HCC) (Primary Dx); Hx of preeclampsia, prior , currently (HCC); Anemia during in third trimester (HCC); 32 weeks gestation of (HCC) Start: 10-13-2024 End: 10-13-2024 [facility] Facility:[facility] Start: 10-04-2024 End: 10-04-2024 Telephone encounter Dante Waite MD Work Phone: OB/Gynecology Comment on above: Breast Pump Start: 09-27-2024 End: 11-27-2024 Follow-up encounter Tara Parks APRN.CNM Work Phone: OB/Gynecology Start: 09-27-2024 End: 09-27-2024 [facility] Facility:[facility] Start: 09-27-2024 End: 09-27-2024 Patient encounter procedure [...] 09-15-2024 End: 09-15-2024 ambulatory KATHY E MIEDEL Facility:[facility] Start: 08-18-2024 End: 08-18-2024 Patient encounter procedure Dante Waite MD Work Phone: OB/Gynecology Comment on above: Supervision of high risk in second trimester (HCC) (Primary Dx); 24 weeks gestation of (HCC); Screening for diabetes mellitus Start: 08-18-2024 End: 08-18-[facility] Start: 07-21-2024 End: 07-21-2024 [facility] Facility:[facility] Start: 07-21-2024 End: 07-21-2024 Patient encounter procedure Macarena Perez APRN.CNP Work Phone: OB/Gynecology Comment on above: Supervision of high risk in second trimester (HCC) (Primary Dx); 20 weeks gestation of (HCC); Hx of preeclampsia, prior , currently (HCC); Hx of gestational diabetes in prior , currently (HCC) Start: 07-21-2024 End: 07-21-2024 ambulatory KATHY E MIEDEL Facility:[facility] Start: 06-23-2024 End: 06-23-2024 ambulatory [facility] Facility:[facility] Start: 06-23-2024 End: 06-23-2024 Patient encounter procedure [...] 06-02-2024 Patient encounter procedure [employer] [facility] Comment on above: Encounter for antena holly screening for malformation using ultrasound (Primary Dx); 13 weeks gestation of Start: 05-18-2024 End: 05-18-2024 ambulatory KATHY Gianfranco VYAS Facility:[facility] Start: 05-18-2024 End: 05-18-2024 Patient [...] Start: 04-19-2024 End: 04-19-2024 ambulatory KATHY Gianfranco [employer] Facility:[facility] Start: 04-19-2024 End: 04-19-2024 Patient encounter procedure Mai Blanton APRN.SELECTOR PACKER Work Phone: OB/Gynecology Comment on above: with [...] status Dante Waite MD Work Phone: [facility] Start: 09-19-2023 Refill Dante owens MD [...] 09-16-2022 End: 09-16-2022 Emergency department patient visit [facility] Start: 09-16-2022 End: 09-16-2022 Subsequent hospital visit by physician [facility]iod[facility] Work Phone: Radiology Comment on above: Acute cough [R05.1] Start: 09-16-2022 End: 09-16-[address] MD [facility] Comment on above: Acute cough (Primary [...] End: 01-05-2022 Evaluation and management of inpatient [facility] Start: 01-01-2022 End: 01-01-2022 Patient encounter procedure [...] first trimester Start: 12-06-2021 End: 12-06-2021 ambulatory [facility] Work Phone: Start: 12-06-2021 End: 12-06-2021 Patient encounter procedure [facility] Start: 12-04-2021 End: 12-04-2021 Patient encounter [...] Nursing evaluation of patient and report Nurse Sanitation Superintendent [facility] Work Phone: OB/Gynecology Comment on above: [...] Phone: OB/Gynecology Comment on above: [employer] form ([place]) Procedures Date Procedure Procedure Detail Performing Clinician [...] Speci men Type: BLOOD SPECIMEN Ordering Facility: [facility] Address: [address] [place] [address] Performed By: #### T SPN #### [facility] CLIA [id number] [facility] DESK [id number] [place] [address] [place] Start: 05-04-2024 Us preg uterus after 1st trimest 04/14 gestation Mai Blanton CLINICAL INFORMATION SYSTEMS DIRECTOR.SELECTOR PACKER Work Phone: Start: 04-19-2024 Us uterus limited 1/> fetuses Mai Blanton CLINICAL INFORMATION SYSTEMS DIRECTOR.SELECTOR PACKER Work Phone: Start: 04-19-2024 Adult depression screening [...] Vaccine (4 - Td or Tdap) [facility] Start: 12-05-2031 Urine microalbumin profile [facility] Start: 11-14-2029 Urine microalbumin profile DTAP,TDAP,TD (2 - Td or Tdap) [facility] Start: 05-29-2026 HPV TESTING HPV TESTING [facility] Start: 05-29-2026 PAP TESTING PAP TESTING [facility] Start: 05-29-2026 Screening for malign ant neoplasm of cervix [facility] Start: 04-19-2025 Anxiety Screening Anxiety Screening [facility] Start: 04-19-2025 Depression Screening Depression Scre ening [facility] Start: 12-20-2024 End: 12-20-2024 Patient encounter procedure 12/20/2024 10:50 AM EDT Office Visit OB/Gynecology [address] [place] [address] Dante Waite MD [address] [place] [id number] POST OP 6 week OB/Gynecology Comment on above: POST OP 6 week Start: 12-13-[address] [facility] Start: 12-08-2024 End: 12-08-2024 Patient encounter procedure 12/08/2024 10:20 AM EDT Office Visit OB/Gynecology [address] [place] [address] Dante Waite MD [address] [place] [address] 1 week incision check OB/Gynecology Comment on above: 1 week incision chec k Start: 11-24-2024 End: 11-24-2024 Patient encounter procedure OB/Gynecology Comment on above: OB OB - Pre Op C/S 11/30 @ [facility] Start: 11-17-2024 End: 11-17-2024 Patient encounter procedure OB/Gynecology Comment on above: OB OB- Start: 11-15-2024 Nonstress test [facility] Start: 11-15-2024 Catheterization of vein [facility] Start: 11-15-2024 [facility] Start: 11-15-2024 End: 11-15-2024 Patient encounter procedure 11/15/2024 10:20 AM EDT Routine Office Visit OB/Gynecology [address] [place] [address] Dante Waite MD [address] [place] [address] OB/ Ok per RR she will be back form [facility] OB/Gynecology Comment on above: OB/ Ok per RR she wi ll be back form [facility] Start: 11-15-2024 Patient discharge [facility] Start: 11-12-2024 End: 11-12-2024 Patient encounter procedure 11/12/2024 10:30 AM EDT Routine Office Visit OB/Gynecology [address] [address] Dante Waite MD [address] [place] [id number] OB - check presentation to see if she is still breech OB/Gynecology Comment on above: OB - check presentat ion to see if she is still breech Start: 11-10-2024 End: 11-10-2024 Patient encounter procedure 11/10/2024 10:40 AM EDT Routine Office Visit OB/Gynecology [address] [place] [address] Dante Waite MD [address] [place], [place] [id number] OB OB/Gynecology Comment on above: OB Start: 10-27-2024 End: 10-27-2024 Patient encounter procedure 10/27/2024 8:30 AM EDT Routine Office Visit OB/Gynecology [address] [place] [address] Dante Waite MD [address] [place], [place] [id number] OB OB/Gynecology Comment on above: OB Start: 10-13-2024 End: 01-12-2025 CBC panel - Blood by Automated count COMPLETE BLOOD COUNT Lab Routine Supervision of high risk in third trimester (HCC) Hx of preeclampsia, prior , currently (HCC) Anemia during in third trimester (HCC) 32 weeks gestation of (HCC) Expected: 10/13/2024, Expires: 01/12/2025 [facility] Work Phone: Comment on above: Expected: 10/13/2024 , Expires: 01/12/2025 Start: 10-13-2024 End: 10-13-2024 Patient encounter procedure 10/13/2024 1:40 PM EDT Office Visit OB/Gynecology [address] [place], [place] [address] Dante Waite MD [address] [place], [place] [address] Annual OB/Gynecology Comment on above: Annual Start: 10-13-2024 End: 10-13-2024 Patient encounter procedure 10/13/2024 8:30 AM EDT Routine Office Visit OB/Gynecology [address] [place] [address] Dante Waite MD [address] [place] [address] OB OB/Gynecology Comment on above: OB Start: 09-15-2024 End: 09-15-2024 ambulatory 09/15/2024 9:15 AM EDT Results Only Letty Ricardo [facility] [address] [place] [address] Letty Robersonwn [facility] Start: 09-15-2024 End: 09-15-2024 Patient encounter procedure 09/15/2024 8:30 AM EDT Routine Office Visit OB/Gynecology [address] [place] [address] Dante Waite MD [address] [place] [address] OB OB/Gynecology Comment on above: OB Start: 08-18-2024 End: 11-17-2024 ANEMIA REFLEX PANEL ANEMIA REFLEX PANEL Lab Routine 24 weeks gestation of ([facility]) Screening for diabetes mellitus Expected: 08/18/2024, Expires: 11/17/2024 [facility] Comment on above: Expected: 08/18/2024 , Expires: 11/17/2024 Start: 08-18-2024 End: 08-18-2025 GESTATIONAL GLUCOSE SCREEN, 1-HOUR, 50 GRAM, NON-FASTING GESTATIONAL GLUCOSE SCREEN, 1-HOUR, 50 GRAM, NON-FASTING Lab Routine 24 weeks gestation of (HCC) Screening for diabetes mellitus Expected: 08/18/2024, Expires: 08/18/2025 [facility] Work Phone: Comment on above: Expected: 08/18/2024 , Expires: 08/18/2025 Start: 08-18-2024 End: 08-18-2025 SYPHILIS TREPONEMAL W/REFLEX SYPHILIS TREPONEMAL W/REFLEX Lab Routine 24 weeks gestation of (HCC) Screening for diabetes mellitus Expected: 08/18/2024, Expires: 08/18/2025 [facility] Comment on above: Expected: 08/18/2024 , Expires: 08/18/2025 Start: 08-18-2024 End: 08-18-2024 Patient encounter procedure 08/18/2024 8:30 AM EDT Routine Office Visit OB/Gynecology [address] [place] [address] Dante Waite MD [address] [place] [address] OB OB/Gynecology Comment on above: OB Start: 07-21-2024 End: 07-21-2024 Patient encounter procedure 07/21/2024 3:40 PM EDT Routine Office Visit OB/Gynecology [address] [place] [address] Dante Waite MD [address] [place] [address] Anatomy/OB OB/Gynecology Comment on above: Anatomy/OB Start: 07-21-2024 End: 07-21-2024 Patient encounter procedure 07/21/2024 2:30 PM EDT Routine Office Visit Maternal Medicine [address] [place] [address] Anatomy [facility]aternal Medicine Comment on above: Anatomy Start: 06-23-2024 End: 06-23-2024 Patient encounter procedure Maternal Medicine Comment on above: Early Anatomy Early Anatomy/OB Start: 06-02-2024 End: 06-02-2024 Patient encounter procedure 06/02/2024 3:10 PM EST Routine Office Visit OB/Gynecology [address] [place] [address] Dante Waite MD [address] [place] [address] OB Routine OB/Gynecology Comment on above: OB Routine Start: 06-02-2024 End: 06-02-2024 Patient encounter procedure 06/02/2024 10:30 AM EST Routine Office Visit Maternal Medicine [address] [place] [address] Early Anatomy Maternal Medicine Comment on above: Early Anatomy Start: 05-29-2024 PAP TESTING PAP TESTING [facility] Start: 05-18-2024 End: 05-18-2024 Patient encounter procedure 05/18/2024 10:20 AM EST Routine Office Visit OB/Gynecology [address] [place] [address] Dante Waite MD [address] [place] [address] NEW OB VISIT, LMP 02/28/24, [place] DELIVERY OB/Gynecology Comment on above: NEW OB VISIT, LMP , [place] DELIVERY Start: 05-18-2024 End: 05-18-2024 Patient encounter procedure 05/18/2024 8:30 AM EST Routine Office Visit OB/Gynecology [address] [place] [address] Dante Waite MD [address] [place] [address] OB OB/Gynecology Comment on above: OB Start: 05-17-2024 End: 05-17-2024 Patient encounter procedure 05/17/2024 10:10 AM EST Routine Office Visit OB/Gynecology [address] [place] [address] Mare Winters MD [address] [place] [address] NEW OB VISIT, LMP 02/28/24, [place] DELIVERY OB/Gynecology Comment on above: NEW OB VISIT, LMP , [place] DELIVERY Start: 05-04-2024 End: 08-03-2024 Chromosome 21 trisomy [Presence] in Blood or Tissue by Cytogenetics [id number] PLUS Lab Routine Encounter for supervision of normal in multigravida Hx of preeclampsia, prior , currently 9 weeks gestation of Expected: 05/04/2024, Expires: 08/03/2024 [facility] Comment on above: Expected: 05/04/2024 , Expires: 08/03/2024 Start: 05-04-2024 End: 05-04-2025 OBSTETRIC ULTRASOUND WHI OBSTETRIC ULTRASOUND WHI Anc Imaging Routine Encounter for supervision of normal in multigravida Hx of preeclampsia, prior , currently 9 weeks gestation of Expected: 05/04/2024, Expires: 05/04/2025 [facility] Comment on above: Expected: 05/04/2024 , Expires: 05/04/2025 Start: 05-04-2024 End: 05-04-2024 Patient encounter procedure Maternal Medicine Comment on above: Dating Dating /OB Start: 04-19-2024 End: 07-19-2024 ANEMIA REFLEX PANEL ANEMIA REFLEX PANEL Lab Routine with uncertain dates, antepartum Encounter for supervision of normal in multigravida Expected: 04/19/2024, Expires: 07/19/2024 [facility] Work Phone: Comment on above: Expected: 04/19/2024 , Expires: 07/19/2024 Start: 04-19-2024 End: 07-19-2024 Hemoglobin A1c in Blood HEMOGLOBIN A1C Lab Routine with uncertain dates, antepartum Encounter for supervision of normal in multigravida Expected: 04/19/2024, Expires: 07/19/2024 [facility] Comment on above: Expected: 04/19/2024 , Expires: 07/19/2024 Start: 04-19-2024 End: 07-19-2024 Hepatitis B virus surface Ag [Presence] in Serum HEPATITIS B SURFACE ANTIGEN Lab Routine with uncertain dates, antepartum Encounter for supervision of normal in multigravida Expected: 04/19/2024, Expires: 07/19/2024 [facility] Comment on above: Expected: 04/19/2024 , Expires: 07/19/2024 Start: 04-19-2024 End: 07-19-2024 Hepatitis C virus Ab [Presence] in Serum HEPATITIS C ANTIBODY IA WITH CONFIRMATION Lab Routine with uncertain dates, antepartum Encounter for supervision of normal in multigravida Expected: 04/19/2024, Expires: 07/19/2024 [facility] Comment on above: Expected: 04/19/2024 , Expires: 07/19/2024 Start: 04-19-2024 End: 07-19-2024 HIV 1+2 Ab [Presence] in Serum or Plasma by Immunoassay HIV 1/2 COMBO WITH REFLEX TO DIFFERENTIATION Lab Routine with uncertain dates, antepartum Encounter for supervision of normal in multigravida Expected: 04/19/2024, Expires: 07/19/2024 [facility] Comment on above: Expected: 04/19/2024 , Expires: 07/19/2024 Start: 04-19-2024 End: 04-19-2025 OBSTETRIC ULTRASOUND WHI OBSTETRIC ULTRASOUND WHI Anc Imaging Routine 7 weeks gestation of Expected: 04/19/2024, Expires: 04/19/2025 [facility] Comment on above: Expected: 04/19/2024 , Expires: 04/19/2025 Start: 04-19-2024 End: 07-19-2024 RUBELLA IGG ANTIBODY RUBELLA IGG ANTIBODY Lab Routine with uncertain dates, antepartum Encounter for supervision of normal in multigravida Expected: 04/19/2024, Expires: 07/19/2024 [facility] Comment on above: Expected: 04/19/2024 , Expires: 07/19/2024 Start: 04-19-2024 End: 07-19-2024 SYPHILIS TREPONEMAL W/REFLEX SYPHILIS TREPONEMAL W/REFLEX Lab Routine with uncertain dates, antepartum Encounter for supervision of normal in multigravida Expected: 04/19/2024, Expires: 07/19/2024 [facility] Comment on above: Expected: 04/19/2024 , Expires: 07/19/2024 Start: 04-19-2024 End: 07-19-2024 TYPE + SCREEN TYPE + SCREEN Blood Bank Routine with uncertain dates, antepartum Encounter for supervision of normal in multigravida Expected: 04/19/2024, Expires: 07/19/2024 [facility] Comment on above: Expected: 04/19/2024 , Expires: 07/19/2024 Start: 04-19-2024 End: 04-19-2024 Patient encounter procedure 04/19/2024 8:15 AM EST Initial Office Visit OB/Gynecology [address] [place] [address] Mai Blanton APRN.SELECTOR P[employer]ER [address] [place] [address] NEW OB VISIT, LMP 02/28/24, [place] DELIVERY OB/Gynecology Comment on above: NEW OB VISIT, LMP , [place] DELIVERY Start: 12-14-2023 Covid-19 Vaccine ( season) Covid-19 Vaccine () [facility] Start: 12-14-2023 Covid-19 Vaccine () Covid-19 Vaccine () [facility] Start: 12-14-[address] [facility] Start: 11-25-2023 End: 11-25-2023 Patient encounter procedure 11/25/2023 8:40 AM EDT Office Visit OB/Gynecology [address] [place] [address] Dante Waite MD [address] [place] [address] annual OB/Gynecology Comment on above: annual Start: 04-14-2023 Behavioral Health Screening Behavioral Health Screening [facility] Start: 04-14-2023 Depression Assessment Depression Ass essment [facility] Start: 03-10-2023 End: 06-09-2023 Bacteria identified in Urine by Culture [facility] Work Phone: Comment on above: Expected: 03/10/2023 , Expires: 06/09/2023 Start: 12-13-2022 Covid-19 Vaccine ( season) Covid-19 Vaccine () [facility] Start: 12-13-2022 Influenza vaccination Influenza Vacc ine (#1) [facility] Start: 04-14-2022 DEPRESSION ASSESSMENT DEPRESSION ASS ESSMENT [facility] Start: 01-05-2022 Patient discharge [facility] Work Phone: Start: 01-04-2022 Following clinical pathway protocol [facility] Work Phone: Start: 01-04-2022 Administration of medication [facility] Work Phone: Start: 01-04-2022 Application of ice collar, cap or bag [facility] Work Phone: Start: 01-04-2022 Catheterization of vein [facility] Work Phone: Start: 01-04-2022 Introduction of urin ruth catheter [facility] Work Phone: Start: 01-04-2022 Measuring intake and output [facility] Work Phone: Start: 01-04-2022 Notification of physician [facility] Work Phone: Start: 01-04-2022 Procedure discontinued [facility] Work Phone: Start: 01-04-2022 Provision of activit y privileges [facility] Work Phone: Start: 01-04-2022 Vital signs measurements [facility] Work Phone: Start: 01-04-2022 [facility] Work Phone: Start: 01-04-2022 Admission procedure [facility] Work Phone: Start: 01-03-2022 COVID-19 VACCINE (4 - Booster for Moderna series) COVID-19 VACCINE (4 - Booster for Moderna series) [facility] Start: 12-13-2021 Influenza vaccination [facility] Start: 12-06-2021 Nonstress test [facility] Work Phone: Start: 12-06-2021 Obstetric monitoring [facility] Work Phone: Start: 12-06-2021 Vital signs measurements [facility] Work Phone: Start: 12-06-2021 [facility] Work Phone: Start: 10-09-2021 End: 12-09-2021 GEST GLUC RAYMOND, 3-HR, 100 GM, FASTING GEST GLUC RAYMOND, 3-HR, 100 GM, FASTING Lab Routine Abnormal glucose in , antepartum Expected: 10/09/2021, Expires: 12/09/2021 [facility] Work Phone: Comment on above: Expected: 10/09/2021 , Expires: 12/09/2021 Start: 09-11-2021 End: 11-11-2021 CBC W Auto Differential panel - Blood CBC + DIFF Lab Routine 22 weeks gestation of History of delivery, currently Encounter for supervision of other normal in second trimester Expected: 09/11/2021, Expires: 11/11/2021 [facility] Work Phone: Comment on above: Expected: 09/11/2021 , Expires: 11/11/2021 Start: 09-11-2021 End: 11-11-2021 GEST GLUC SCREEN, 1-HR, 50 GM, NON-FASTING GEST GLUC SCREEN, 1-HR, 50 GM, NON-FASTING Lab Routine 22 weeks gestation of History of delivery, currently Encounter for supervision of other normal in second trimester Expected: 09/11/2021, Expires: 11/11/2021 [facility] Work Phone: Comment on above: Expected: 09/11/2021 , Expires: 11/11/2021 Start: 09-11-2021 End: 11-11-2021 SYPHILIS TOTAL W/REFLEX SYPHILIS TOTAL W/REFLEX Lab Routine 22 weeks gestation of History of delivery, currently Encounter for supervision of other normal in second trimester Expected: 09/11/2021, Expires: 11/11/2021 [facility] Work Phone: Comment on above: Expected: 09/11/2021 , Expires: 11/11/2021 Start: 07-24-2021 COVID-19 VACCINE (3 - Booster for Moderna series) COVID-19 VACCINE (3 - Booster for Moderna series) [facility] Start: 04-14-2021 DEPRESSION ASSESSMENT DEPRESSION ASS ESSMENT [facility] Start: 2019 HPV Vaccine (1 - 3-d ose SCDM series) HPV Vaccine (1 - 3-dose SCDM series) [facility] Start: 2011 Hepatitis B Vaccine (1 of 3 - 19+ 3-dose series) Hepatitis B Vaccine (1 of 3 - 19+ 3-dose series) [facility] Start: 2010 Anxiety Screening Anxiety Screening [facility] Start: 2010 Depression Screening Depression Scre ening [facility] Start: 2004 Adult depression screening assessment DEPRESSION SCREENING [facility] Start: 1992 HEPATITIS B (1 of 3 - 3-dose series) HEPATITIS B (1 of 3 - 3-dose series) [facility] Start: 1992 Hepatitis B Vaccine (1 of 3 - 3-dose series) Hepatitis B Vaccine (1 of 3 - 3-dose series) [facility] Bacteria identified in Urine by Culture URINE CULTURE Microbiology Routine with uncertain dates, antepartum Encounter for supervision of normal in multigravida 04/19/2024 9:05 AM EST [facility] Bacteria identified in Urine by Culture BACTERIAL CULTURE, URINE Microbiology Routine Supervision of high risk in third trimester (HCC) 30 weeks gestation of (HCC) Urinary frequency 09/27/2024 9:26 AM EDT [facility] Work Phone: Chlamydia trachomatis+Neisseria gonorrhoeae DNA [Presence] in Unspecified specimen by LUPIS with probe detection GONORRHEA/CHLAMYDIA NAAT Lab Routine with uncertain dates, antepartum Encounter for supervision of normal in multigravida 04/19/2024 9:05 AM EST [facility] Microscopic observat ion [Identifier] in Vaginal fluid by Gram stain BACT/JONI VAG GRAM STAIN Microbiology Routine Vaginal discharge Vaginal odor 03/05/2022 11:52 AM EST [facility] Work Phone: OBSTETRIC ULTRASOUND WHI OBSTETR IC ULTRASOUND WHI Anc Imaging Routine Diet controlled gestational diabetes mellitus (GDM) in third trimester 32 weeks gestation of Supervision of other high risk pregnancies, third trimester Ordered: 11/20/2021 [facility] Work Phone: Comment on above: Ordered: 11/20/2021 End: 05-04-2025 OBSTETRIC ULTRASOUND WHI OBSTETRIC ULTRASOUND WHI Anc Imaging Routine Encounter for supervision of normal in multigravida Hx of preeclampsia, prior , currently 9 weeks gestation of 1 Occurrences starting 05/04/2024 until 05/04/2025 [facility] Work Phone: Comment on above: 1 Occurrences starti ng 05/04/2024 until 05/04/2025 Patient Education [facility] Work Phone: Patient referral [facility] Work Phone: ROUTINE, GR OUP B STREP PCR ROUTINE, GROUP B STREP PCR Microbiology Routine 35 weeks gestation of Diet controlled gestational diabetes mellitus (GDM) in third trimester 12/13/2021 12:07 PM EDT [facility] Work Phone: ROUTINE, GR OUP B STREPTOCOCCUS BY PCR ROUTINE, GROUP B STREPTOCOCCUS BY PCR Microbiology Routine Supervision of high risk in third trimester (HCC) Hx of preeclampsia, prior , currently (HCC) 36 weeks gestation of ([facility]) 11/10/2024 11:19 AM EDT [facility] Work Phone: URINE OB DIP B/O URINE OB DIP B/ O Lab Routine 36 weeks gestation of Diet controlled gestational diabetes mellitus (GDM) in third trimester Supervision of other high risk pregnancies, first trimester Ordered: 12/19/2021 [facility] Work Phone: Comment on above: Ordered: 12/19/2021 URINE OB DIP B/O URINE OB DIP B/ O Lab Routine 37 weeks gestation of (HCC) Supervision of high risk in third trimester ([facility]) Ordered: 11/15/2024 [facility] Work Phone: Comment on above: Ordered: 11/15/2024 [facility] Immunizations Immunization Date Immunization Notes Care Provider Aleksandar [email or web address] 09-15-2024 tetanus toxoid, redu easton diphtheria toxoid, and acellular pertussis vaccine, adsorbed Dante Waite MD Work Phone: [facility] 01-05-2022 influenza, injectabl e, quadrivalent, preservative free Dr. Kathy Vyas MD Work Phone: [facility] 01-05-2022 influenza, seasonal, injectable [facility] 01-05-2022 influenza virus vaccine, unspecified formulation Dante Waite MD Work Phone: [facility] 12-04-2021 tetanus toxoid, redu easton diphtheria toxoid, and acellular pertussis vaccine, adsorbed Manjula Diaz MD Work Phone: [facility] 01-13-2020 influenza virus vaccine, unspecified formulation Dante Waite MD Work Phone: [facility] Work Phone: 01-12-2020 influenza, injectabl e, quadrivalent, preservative free Dr. Kathy Vyas MD Work Phone: [facility] 01-12-2020 influenza, seasonal, injectable [facility] 01-12-2020 influenza, seasonal, injectable, preservative free Dante Waite MD Work Phone: [facility] Work Phone: 11-15-2019 tetanus toxoid, redu easton diphtheria toxoid, and acellular pertussis vaccine, adsorbed Dante Waite MD Work Phone: [facility] Payers Date Payer Category Payer Self-pay [id number] [id number] [id number] 2022 [facility] [id number] 2022 Unknown MARLENA TRIVEDI PPO [id number] 2022-Present [phone] [address] [place] [address] PPO [id number] 2022 Unknown [id number] 2020 Private Health Insurance [employer] OAP [id number] 2020-Present [phone] [address] [place] [address] Open Access [id number] 2020 Private Health Insurance [employer] OAP [id number] 2020-Present [phone] [address] [place] [address] Open Access [id number] Private Health Insurance [id number] Unknown [id number] Unknown [id number] Social History Date Type Detail Facility Start: 04-19-2011 End: 01-17-2022 Tobacco smoking status NHIS Never smoked tobacco [facility] Work Phone: Start: 04-19-2011 End: 01-17-2022 Tobacco use and exposure Smokeless tobacco non-user [facility] Work Phone: Start: 06-26-2021 End: 09-27-2024 Alcohol intake Current non-drinker of alcohol (finding) [facility] Start: 07-06-2019 History SDOH Financial 5 [facility] Start: 07-06-2019 History SDOH Food Worry 1 [facility] Start: 07-06-2019 History SDOH Transport Med 2 [facility] Start: 07-05-2019 Education 17 [facility] Start: 04-20-2021 [facility] Start: 1990 Sex Assigned At Not on file [facility] Start: 06-16-2021 End: 01-17-2022 Exposure to SARS-CoV-2 (event) Not sure [facility] Start: 01-10-2020 End: 09-16-2022 Tobacco smoking status NHIS Unknown if ever smoked [facility] Start: 1990 Sex Assigned At Female [facility] Start: 09-16-2022 End: 10-10-2023 History of Social function [facility] Start: 09-16-2022 End: 10-10-2023 Tobacco use panel [facility] Start: 03-15-2012 How hard is it for you to pay for the very basics like food, housing, medical care, and heating Not hard at all [facility] (I/We) worried whether (my/our) food would run out before (I/we) got money to buy more. Never true [facility] NEGATED: Highlighted row [facility] Medical Equipment Procedure Code Equipment Code Equipment [...] Assessment Result Facility 09-16-2022 Cognitive function Voice/Name [facility] Work Phone: Clinical Notes 11-22-2019 to [...] Supervision of high risk in third trimester ([facility]) Orders: URINE OB DIP B/O Hx of preeclampsia, prior , currently ([facility]) Orders: URINE OB DIP B/O Breech presentation with problem, single or unspecified fetus ([facility]) Planned cs Orders: URINE OB DIP B/O Anemia during in third trimester ([facility]) Continue PO iron Orders: URINE OB DIP B/O 38 weeks gestation of ([facility]) Kick counts and labor reviewed Orders: URINE OB DIP B/O Kasey Perez MD [facility] 11-24-2024 Miscellaneous Notes DM-Pt doing well. Denies vaginal Bleeding, Leaking fluid, or regular Contractions. Pt reports good movement Physical Exam: Gen: female in no apparent distress Abd: soft, Gravid. Non tender to palpation. See flow sheet @ 38.4 weeks Assessment & Plan Supervision of high risk in third trimester ([facility]) Orders: URINE OB DIP B/O Hx of preeclampsia, prior , currently ([facility]) Orders: URINE OB DIP B/O Breech presentation with problem, single or unspecified fetus ([facility]) Planned cs Orders: URINE OB DIP B/O Anemia during in third trimester ([facility]) Continue PO iron Orders: URINE OB DIP B/O 38 weeks gestation of ([facility]) Kick counts and labor reviewed Orders: URINE OB DIP B/O Kasey Perez MD documented in this encounter [facility] 11-24-2024 Instructions Milana Quintana MA - 11/24/2024 8:58 AM EDT SEQUENTIAL SCREENINGS The [facility] offers sequential screenings for women who [...] It will require an appointment with our holter technician. This is not an ultrasound performed [...] the above symptoms, contact our office at [phone] and ask to speak with a nurse. After hours, you can call doctors registry at [phone] OR call [facility] at [phone] and ask to have the doctor honey blender paged. If you consider this an emergency, dial 9-1-1 or go to your nearest emergency department. NEED HELP? Are you dealing with a violent or abusive relationship? Are you a victim of rape or sexual assult? Call [facility] [place] 24 hour Crisis Hotline: 330.553.7689 or 396-127-5440. MANUAL Your Guide to a Healthy manual is now on-line. Visit [email or web address] to download your free copy documented in this encounter [facility] 11-23-2024 Note HNO ID: [id number] Author: MARIO ALBERTO TOMLINSON, ? Service: ? 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 Type: Progress Notes Filed: 11/23/2024 07:33 Note Text: POPULATION HEALTH NAVIGATION OUTREACH Action/I No outreach done added rn picu via note Reason for Outreach Medicaid OB/Peds Care Gaps due: N/A Patient Contacted: Unable or unnecessary to reach patient: Wana rn picu added Navigation Signature: Mario Alberto Tomlinson Population Health Navigator November 23, 2024 7:32 AM [facility] 11-23-2024 History of Present illness Narrative POPULATION HEALTH NAVIGATION OUTREACH Action/I No outreach done added rn picu via note Reason for Outreach Medicaid OB/Peds Care Gaps due: N/A Patient Contacted: Unable or unnecessary to reach patient: Wana rn picu added Navigation Signature: Mario Alberto Tomlinson Population Health Navigator November 23, 2024 7:32 AM documented in this encounter [facility] 11-23-2024 Note Patient Outreach (NE TNAV) HERB MORAN ([id number]) 1990 F Date Time Provider Department 11/23/24 MARIO ALBERTO TOMLINSON NETTADV During your visit today, we recorded the following information about you: Mario Alberto Tomlinson 11/23/2024 7:33 AM Signed POPULATION HEALTH NAVIGATION OUTREACH Action/I No outreach done added rn picu via note Reason for Outreach Medicaid OB/Peds Care Gaps due: N/A Patient Contacted: Unable or unnecessary to reach patient: Wana rn picu added Navigation Signature: Mario Alberto Tomlinson Population [...] fir*05/29/2021 01/17/2022 Anemia during in third trimester ([facility]*10/09/2021 Supervision of high risk in second tr*04/19/2024 Hx of preeclampsia, prior , currently *04/19/2024 Breech presentation with problem ([facility]*11/10/2024 Encounter Status:Closed by MARIO ALBERTO TOMLINSON on 11/23/24 [facility] 11-18-2024 Note [facility] Medical Records Department [address] [place] [address] History Physical Exam 11/18/24 0912 MR#: [id number] Acct: [id number] Name: DEANHERB DOREEN Rep #: [id number] : 1990 34 From: Dante Waite MD PCP: Dr. Kathy Vyas MD Status:PRE IN Location: [facility] History and Physical Date of Admission: 11/30/24 HPI: The patient is a 34 year old female presenting for pre-operative visit. She is scheduled for , for breech on 11/30/24. Procedure discussed along with risks, benefits and complications. Other alternatives discussed for management. Consent form signed? Yes. ? PAST MEDICAL HISTORY PAST MEDICAL HISTORYDiagnosisDate???Acne? Anemia?Gestational diabetes mellitus, class A1 ([facility])11/22/2019???Hx of preeclampsia, prior , currently ([facility])04/19/2024???Preeclampsia (HCC)? PAST SURGICAL HISTORY PAST SURGICAL [...] Grandmother?Alzheimer's DiseaseMaternal Grandmother?HypertensionMate rnal Grandfather?LeukemiaMaternal Grandfather?HeartPaternal Grandmother? [place]???StrokePaternal Grandmother?HeartPaternal Ndkehdrtxco71???CancerPaternal Grandfather? Skin???other (Brain Tumor (Cancer))Other? Maternal Great [...] Vyas MD; Dr. Dante Waite MD Signed [facility] 11-17-2024 Note HNO ID: [id number] Author: DANTE WAITE MD Service: ? Author Type: Physician Type: Progress Notes Filed: 11/18/2024 09:11 Note Text: [facility] 11-15-2024 Progress note [facility] 11-15-2024 History and physical note Note Date/Time November 15, 2024 12:53pm [facility] Medical Records Department [address] [place] [address] OB Triage Physician Note 11/15/24 1249 MR#: [id number] Acct: [id number] Name: HERB MORAN Rep #:[id number] : 1990 34 From: Dante Waite MD PCP: Dr. Kathy Vyas MD Status:REG CLI Y Location: [address] HPI - General General Date of Admission: 11/15/24 Date of Service: 11/15/24 Chief Complaint: breech HPI Narrative HERB MORAN, is a 34 F who presents Maternal Data Information Final EDIL: 12/02/24 Gestational age: 37 4/7 [facility] Medical History (Updated 11/15/24 @ 12:51 by [...] MD; Dr. Dante Waite MD ~ Signed [facility] Work Phone: 1(453) 584-514908-04-2025 History and physical note [facility] Medical Records Department [address] [place] [address] OB Triage Physician Note 11/15/24 1249 MR#: [id number] Acct: [id number] Name: HERB MORAN Rep #:[id number] : 1990 34 From: Dante Waite MD PCP: Dr. Kathy Vyas MD Status:REG CLI Y Location[facility] HPI - General General Date of Admission: 11/15/24 Date of Service: 11/15/24 Chief Complaint: breech HPI Narrative HERB MORAN, is a 34 F who presents Maternal Data Information Final EDIL: 12/02/24 Gestational age: 37 4/7 [facility] Medical History (Updated 11/15/24 @ 12:51 by [...] MD; Dr. Dante Waite MD ~ Signed [facility]08-04-2025 Evaluation note* Diagnosis Onset Date Resolution Status Admit Date 37 weeks gestation of acut e November 15, 2024 10:35am Complete breech acute November 10:35am [facility] Work Phone: 1(424) 222-879308-04-2025 Progress note* Quick Notes - Dante Waite MD - 11/15/2024 10:34 AM EDT US confirms breech, back to maternal left. Desires attempted ECV. To [facility]. Dante Waite MD [facility]08-04-2025 Miscellaneous Notes* Quick Notes - Dante Waite MD - 11/15/2024 10:34 AM EDT US confirms breech, back to maternal left. Desires attempted ECV. To [facility]. Dante Waite MD documented in this encounterMer[facility]08-04-2025 Instructions* Patient Instructions* Sara Asencio MA - 11/15/2024 10:05 AM EDT SEQUENTIAL SCREENINGS The [facility] offers sequential screenings for women who [...] testing. It will require an appointment withour holter technician. This is not an ultrasound performed [...] the above symptoms, contact our office at [phone] and ask to speak with anurse. After hours, you can call doctors registry at [phone] OR call [facility] at [phone] ask to have the doctor honey blender paged. If you consider this an emergency, dial 9-1-7 or go to your nearest emergency department. NEED HELP? Are you dealing with a violent or abusive relationship? Are you a victim of rape or sexual assult? Call [facility] ([place]) 24 hour Crisis Hotline: 567.794.7611 or 817-500-6543. MANUAL Your Guide to a Healthy manual is now on-line. Visit [email or web address] to download your free copy documented in this encounterMercy Health [facility]08-01-2025 Progress note* Quick Notes - Dante Waite MD - 11/12/2024 12:30 PM EDT Brief visit, still breech, plan f/u in 3 days and if breech trial ECV. Dante Waite MD` [facility]08-01-2025 Miscellaneous Notes* Quick Notes - Dante Waite MD - 11/12/2024 12:30 PM EDT Brief visit, still breech, plan f/u in 3 days and if breech trial ECV. Dante Waite MD` documented in this encounterMercy Health [facility]08-01-2025 Instructions* Patient Instructions* Milana Quintana MA - 11/12/2024 10:49 AM EDT SEQUENTIAL SCREENINGS The [facility] offers sequential screenings for women who [...] testing. It will require an appointment withour holter technician. This is not an ultrasound performed [...] the above symptoms, contact our office at [phone] and ask to speak with anurse. After hours, you can call doctors registry at [phone] OR call [facility] at [phone] ask to have the doctor honey blender paged. If you consider this an emergency, dial 2-9- or go to your nearest emergency department. NEED HELP? Are you dealing with a violent or abusive relationship? Are you a victim of rape or sexual assult? Call [facility] ([facility] 24 hour Crisis Hotline: 597.433.7589 or 917-714-1204. MANUAL Your Guide to a Healthy manual is now on-line. Visit [email or web address] to download your free copy documented in this encounterMercy Health [facility]07-31-2025 Telephone encounter Note * Telephone Encounter - Dante Waite MD - 11/11/2024 3:40 PM EDT work her in tomorrow am w me anytime for quick eval. Dante Waite MD [facility]07-31-2025 Miscellaneous Notes* Telephone Encounter - Dante Waite MD - 11/11/2024 3:40 PM EDT work her in tomorrow am w me anytime for quick eval. Dante Waite MD documented in this encounterMercy Health [facility]07-30-2025 Progress note* Quick Notes - Dante Waite MD - 11/10/2024 10:47 AM EDT RR- VB No. LOF No. CTXS No. Movement: present. Other c/o: No. Medication list reviewed. SENSITIVE EXAM: Sensitive exam not performed. Physical Exam See Flow Sheet Abd: soft, nontender, gravid A/P 36w4d Estimated Date of Delivery: 12/04/24 Assessment & Plan Supervision of high risk in third trimester ([facility]) Orders: URINE OB DIP B/O ROUTINE, GROUP B STREPTOCOCCUS BY PCR Hx of preeclampsia, prior , currently ([facility]) bp stable, call for signs/symptoms of preeclampsia Orders: URINE OB DIP B/O ROUTINE, GROUP B STREPTOCOCCUS BY PCR 36 weeks gestation of ([facility]) Orders: URINE OB DIP B/O ROUTINE, GROUP B STREPTOCOCCUS BY PCR Breech presentation with problem, single or unspecified fetus ([facility]) r/b/a to ECV reviewed, desires to attempt if still breech next week. kick counts US confirms breech. Dante Waite M.D. [facility]07-30-2025 Miscellaneous Notes* Quick Notes - Dante Waite MD - 11/10/2024 10:47 AM EDT RR- VB No. LOF No. CTXS No. Movement: present. Other c/o: No. Medication list reviewed. SENSITIVE EXAM: Sensitive exam not performed. Physical Exam See Flow Sheet Abd: soft, nontender, gravid A/P 36w4d Estimated Date of Delivery: 12/04/24 Assessment & Plan Supervision of high risk in third trimester ([facility]) Orders: URINE OB DIP B/O ROUTINE, GROUP B STREPTOCOCCUS BY PCR Hx of preeclampsia, prior , currently ([facility]) bp stable, call for signs/symptoms of preeclampsia Orders: URINE OB DIP B/O ROUTINE, GROUP B STREPTOCOCCUS BY PCR 36 weeks gestation of ([facility]) Orders: URINE OB DIP B/O ROUTINE, GROUP B STREPTOCOCCUS BY PCR Breech presentation with problem, single or unspecified fetus ([facility]) r/b/a to ECV reviewed, desires to attempt if still breech next week. kick counts US confirms breech. Dante Waite M.D. documented in this encounterMercy Health [facility]07-30-2025 Instructions* Patient Instructions* Milana Quintana MA - 11/10/2024 10:41 AM EDT SEQUENTIAL SCREENINGS The [facility] offers sequential screenings for women who [...] testing. It will require an appointment withour holter technician. This is not an ultrasound performed [...] the above symptoms, contact our office at [phone] and ask to speak with anurse. After hours, you can call doctors registry at [phone] OR call [facility] at [phone] ask to have the doctor honey blender paged. If you consider this an emergency, dial 6-2-7 or go to your nearest emergency department. NEED HELP? Are you dealing with a violent or abusive relationship? Are you a victim of rape or sexual assult? Call [facility] ([place]) 24 hour Crisis Hotline: 773.811.9265 or 769-387-3863. MANUAL Your Guide to a Healthy manual is now on-line. Visit [email or web address] to download your free copy documented in this encounterMercy Health [facility]07-16-2025 Progress note* Quick Notes - Dante [...] This Visit Anemia during in third trimester ([facility]) Overview September 16, 2024 10.3 hemoglobin. Oral iron started. Macarena Perez, GARETH.SELECTOR PACKER Relevant Orders URINE OB DIP B/O (Completed) Hx of preeclampsia, prior , currently ([facility]) Relevant Orders URINE OB DIP B/O (Completed) Other Visit Diagnoses Supervision of high risk in third trimester ([facility]) - Primary Relevant Orders URINE OB DIP B/O (Completed) 34 weeks gestation of ([facility]) no signs or symptoms of preeclampsia, cont. to monitor kick counts f/u in 2 weeks or prn likely would elect for 39 week induction Dnate Waite M.D. [facility]07-16-2025 Miscellaneous Notes* Quick Notes - Dante [...] This Visit Anemia during in third trimester ([facility]) Overview September 16, 2024 10.3 hemoglobin. Oral iron started. Macarena Perez, GARETH.SELECTOR PACKER Relevant Orders URINE OB DIP B/O (Completed) Hx of preeclampsia, prior , currently ([facility]) Relevant Orders URINE OB DIP B/O (Completed) Other Visit Diagnoses Supervision of high risk in third trimester ([facility]) - Primary Relevant Orders URINE OB DIP B/O (Completed) 34 weeks gestation of ([facility]) no signs or symptoms of preeclampsia, cont. to monitor kick counts f/u in 2 weeks or prn likely would elect for 39 week induction Dante Waite M.D. documented in this encounterMercy Health [facility]07-16-2025 Instructions* Patient Instructions* Milana Quintana MA - 10/27/2024 8:42 AM EDT SEQUENTIAL SCREENINGS The [facility] offers sequential screenings for women who [...] testing. It will require an appointment withour holter technician. This is not an ultrasound performed [...] the above symptoms, contact our office at [phone] and ask to speak with anurse. After hours, you can call doctors registry at [phone] OR call [facility] at [phone] ask to have the doctor honey blender paged. If you consider this an emergency, dial 1-1-4 or go to your nearest emergency department. NEED HELP? Are you dealing with a violent or abusive relationship? Are you a victim of rape or sexual assult? Call [facility] ([place]) 24 hour Crisis Hotline: 393.109.6842 or 803-664-2151. MANUAL Your Guide to a Healthy manual is now on-line. Visit [email or web address] to download your free copy documented in this encounterMercy Health [facility]07-02-2025 Progress note* Quick Notes - Dante [...] Supervision of high risk in third trimester ([facility]) Orders: COMPLETE BLOOD COUNT; Future Hx of preeclampsia, prior , currently ([facility]) bp stable Orders: COMPLETE BLOOD COUNT; Future Anemia during in third trimester ([facility]) Orders: COMPLETE BLOOD COUNT; Future 32 weeks gestation of ([facility]) Orders: COMPLETE BLOOD COUNT; Future f/u in 2 weeks or prn cont. fe for anemia, last hgb 10.7 no need to repeat at this time Dante Waite M.D. [facility]07-02-2025 Miscellaneous Notes* Quick Notes - Dante [...] Supervision of high risk in third trimester ([facility]) Orders: COMPLETE BLOOD COUNT; Future Hx of preeclampsia, prior , currently ([facility]) bp stable Orders: COMPLETE BLOOD COUNT; Future Anemia during in third trimester ([facility]) Orders: COMPLETE BLOOD COUNT; Future 32 weeks gestation of ([facility]) Orders: COMPLETE BLOOD COUNT; Future f/u in 2 weeks or prn cont. fe for anemia, last hgb 10.7 no need to repeat at this time Dante Waite M.D. documented in this encounterMercy Health [facility] Hospital06-23-2025 Telephone encounter Note * Telephone Encounter - Cem Back RN - 10/04/2024 1:42 PM EDT Faxed. Cem Back RN [facility]06-23-2025 Miscellaneous Notes* Telephone Encounter - Cem Back RN - 10/04/2024 1:42 PM EDT Faxed. Cem Back RN * Telephone Encounter - Mare Larios RN - 10/04/2024 8:49 AM EDT Received breast pump RX from [employer]. To RR to sign. Mare Larios RN documented in this encounterMercy Health Kings [facility] Hospital06-23-2025 Telephone encounter Note * Telephone Encounter - Mare Larios RN - 10/04/2024 8:49 AM EDT [facility] To RR to sign. Mare Larios RN [facility]06-16-2025 NoteHNO ID: [id number] Author: TARA PARKS APRN.[facility] Service: ? Author Type: Radio Host Type: Progress Notes Filed: 09/27/2024 09:21 Note [...] to call RTO as scheduled. Tara Parks APRN.[facility]06-16-2025 History of Present illness Narrative* Tara [...] Tara Parks APRN.CNM documented in this encounterMercy Health [facility]06-16-2025 Instructions* Patient Instructions* Cody France MA - 09/27/2024 8:42 AM EDT SEQUENTIAL SCREENINGS The [facility] offers sequential screenings for women who [...] testing. It will require an appointment withour holter technician. This is not an ultrasound performed [...] the above symptoms, contact our office at [phone] and ask to speak with anurse. After hours, you can call doctors registry at [phone] OR call [facility] at [phone] ask to have the doctor honey blender paged. If you consider this an emergency, dial 3-7-1 or go to your nearest emergency department. NEED HELP? Are you dealing with a violent or abusive relationship? Are you a victim of rape or sexual assult? Call [facility] ([place]) 24 hour Crisis Hotline: 642.908.8452 or 156-101-4749. MANUAL Your Guide to a Healthy manual is now on-line. Visit [email or web address] to download your free copy documented in this encounterMercy Health [facility]06-04-2025 Progress note* Quick Notes - Dante [...] vaccination tdap today Dante Waite M.D. [facility]06-04-2025 Miscellaneous Notes* Quick Notes - Dante [...] Dante Waite M.D. documented in this encounterMercy Health Kings [facility] Hospital06-04-2025 NoteHNO ID: [id number] Author: MARIANELA CAMPOS MA Service: ? Author Type: Paramedic Rn Type: Progress Notes Filed: 09/15/2024 09:17 Note [...] severely ill: Yes Patient denies history of Guillain-Charleston Syndrome (a severe paralytic illness): Yes Tdap [...] severely ill: Yes Patient denies history of Guillain-Charleston Syndrome (a severe paralytic illness): Yes Tdap Adacel injection was given without incident. See immunizations for details of immunizations administered today. VIS sheet provided: Yes Provider Dr Waite was present in office at time of injection. Milana Quintana MA documented in this encounterMercy Health [facility] Hospital05-07-2025 Progress note* Quick Notes - Dante [...] prn cont. PNV Dante Waite M.D. [facility]05-07-2025 Miscellaneous Notes* Quick Notes - Dante [...] Dante Waite M.D. documented in this encounterMercy Health [facility]05-07-2025 Instructions* Patient Instructions* Milana Quintana MA - 08/18/2024 8:19 AM EDT SEQUENTIAL SCREENINGS The [facility] offers sequential screenings for women who [...] testing. It will require an appointment withour holter technician. This is not an ultrasound performed [...] the above symptoms, contact our office at [phone] and ask to speak with anurse. After hours, you can call doctors registry at [phone] OR call [facility] at [phone] ask to have the doctor honey blender paged. If you consider this an emergency, dial 9-0 or go to your nearest emergency department. NEED HELP? Are you dealing with a violent or abusive relationship? Are you a victim of rape or sexual assult? Call [facility] ([place]) 24 hour Crisis Hotline: 305.302.3923 or 791-328-0655. MANUAL Your Guide to a Healthy manual is now on-line. Visit [email or web address] to download your free copy documented in this encounterMercy Health [facility]04-09-2025 NoteHNO ID: [id number] Author: MACARENA PEREZ APRN.[employer] Service: ? Author Type: Nurse Practitioner Type: [...] and LDA 2. 20 weeks gestation of ([facility]) - ICD9: V22.2, ICD10: Z3A.20 - Anatomy ultrasound today, report pending 3. Hx of preeclampsia, prior , currently ([facility]) - ICD9: V23.49, ICD10: O09.299 4. Hx of gestational diabetes in prior , currently ([facility]) - ICD9: V23.49, ICD10: O09.299, Z86.32 PTL precautions reviewed. RTO in 4 weeks or sooner as needed. Macarena Perez APRN.CNPRiverside [facility] Hospital04-09-2025 History of Present illness Narrative* Macarena [...] Supervision of high risk in second trimester ([facility]) - ICD9: V23.9, ICD10: O09.92 (primary diagnosis) - Continue PNV and LDA 2. 20 weeks gestation of ([facility]) - ICD9: V22.2, ICD10: Z3A.20 - Anatomy ultrasound today, report pending 3. Hx of preeclampsia, prior , currently ([facility]) - ICD9: V23.49, ICD10: O09.299 4. Hx of gestational diabetes in prior , currently ([facility]) - ICD9: V23.49, ICD10: O09.299, Z86.32 PTL precautions reviewed. RTO in 4 weeks or sooner as needed. Macarena Perez APRN.SELECTOR PACKER documented in this encounterMercy Health [facility]04-09-2025 Instructions* Patient Instructions* Ligia Willard MA - 07/21/2024 2:31 PM EDT SEQUENTIAL SCREENINGS The [facility] offers sequential screenings for women who [...] testing. It will require an appointment withour holter technician. This is not an ultrasound performed [...] the above symptoms, contact our office at [phone] and ask to speak with anurse. After hours, you can call doctors registry at [phone] OR call [facility] at [phone] ask to have the doctor honey blender paged. If you consider this an emergency, dial 9--9 or go to your nearest emergency department. NEED HELP? Are you dealing with a violent or abusive relationship? Are you a victim of rape or sexual assult? Call [facility] ([place]) 24 hour Crisis Hotline: 727.793.8480 or 409-873-0085. MANUAL Your Guide to a Healthy manual is now on-line. Visit [email or web address] to download your free copy documented in this encounterMercy Health [facility]03-12-2025 Progress note* Quick Notes - Dante [...] declines aneuploidy screening Dante Waite M.D. [facility]03-12-2025 Miscellaneous Notes* Quick Notes - Dante [...] Dante Waite M.D. documented in this encounterMercy Health [facility]02-19-2025 Progress note* Quick Notes - Dante Waite MD - 06/02/2024 11:39 AM EST RR- Doing well overall. No VB. Taking PNV. F/u in 2 weeks or prn. D/w her aneuploidy screening and declines at this time. Cont. asa and pNV. Dante Waite MD [facility]02-19-2025 Miscellaneous Notes* Quick Notes - Dante Waite MD - 06/02/2024 11:39 AM EST RR- Doing well overall. No VB. Taking PNV. F/u in 2 weeks or prn. D/w her aneuploidy screening and declines at this time. Cont. asa and pNV. Dante Waite MD documented in this encounterMercy Health [facility]02-19-2025 Instructions* Patient Instructions* Milana Quintana MA - 06/02/2024 11:23 AM EST SEQUENTIAL SCREENINGS The [facility] offers sequential screenings for women who [...] testing. It will require an appointment withour holter technician. This is not an ultrasound performed [...] the above symptoms, contact our office at [phone] and ask to speak with anurse. After hours, you can call doctors registry at [phone] OR call [facility] at [phone] ask to have the doctor honey blender paged. If you consider this an emergency, dial 0-3-1 or go to your nearest emergency department. NEED HELP? Are you dealing with a violent or abusive relationship? Are you a victim of rape or sexual assult? Call [facility] ([place]) 24 hour Crisis Hotline: 310.943.9873 or 779-126-1576. MANUAL Your Guide to a Healthy manual is now on-line. Visit [email or web address] to download your free copy documented in this encounterMercy Health [facility]02-04-2025 Progress note* Quick Notes - Dante Waite MD - 05/18/2024 8:52 AM EST RR- doing well overall. No VB. Taking PNV. A little tired otherwise doing well. PLans to start ASA soon. Declines NIPT for now. Dante Waite MD [facility]02-04-2025 Miscellaneous Notes* Quick Notes - Dante Waite MD - 05/18/2024 8:52 AM EST RR- doing well overall. No VB. Taking PNV. A little tired otherwise doing well. PLans to start ASA soon. Declines NIPT for now. Dante Waite MD documented in this encounterMercy Health Kings Mills Hospital02-04-2025 Instructions* Patient Instructions* Marianela Campos MA - 05/18/2024 8:24 AM EST SEQUENTIAL SCREENINGS The [facility] offers sequential screenings for women who [...] testing. It will require an appointment withour holter technician. This is not an ultrasound performed [...] the above symptoms, contact our office at [phone] and ask to speak with anurse. After hours, you can call doctors registry at [phone] OR call [facility] at [phone] ask to have the doctor honey blender paged. If you consider this an emergency, dial 9--1 or go to your nearest emergency department. NEED HELP? Are you dealing with a violent or abusive relationship? Are you a victim of rape or sexual assult? Call [facility] ([place]) 24 hour Crisis Hotline: 387.948.3812 or 595-195-3063. MANUAL Your Guide to a Healthy manual is now on-line. Visit [email or web address] to download your free copy documented in this encounterMercy Health Kings Mills Hospital01-21-2025 NoteHNO ID: [id number] Author: DAYANA PERRY MD Service: ? Author Type: Physician Type: Progress Notes Filed: 05/04/2024 14:03 Note Text: The patient presents for requested ultrasound. Full report available in the Imaging tab in [employer]. Dayana Perry [facility]01-21-2025 History of Present illness Narrative* Dayana Perry MD - 05/04/2024 2:01 PM EST The patient presents for requested ultrasound. Full report available in the Imaging tab in [employer]. Dayana Perry MD documented in this encounterMercy Health Kings [facility] Hospital01-21-2025 Progress note* Quick Notes - Dante Waite MD - 05/04/2024 9:13 AM EST RR- No VB/LOF. Taking pNV. D/w her ASA prophylaxis. F/u in 2 weeks or prn to check FHTs, schedule early anatomy scan. Recommend cont. exercise and follow diabetic diet to decrease risk GDM. Dante Vargas MD [facility]01-21-2025 Miscellaneous Notes* Quick Notes - Dante Waite MD - 05/04/2024 9:13 AM EST RR- No VB/LOF. Taking pNV. D/w her ASA prophylaxis. F/u in 2 weeks or prn to check FHTs, schedule early anatomy scan. Recommend cont. exercise and follow diabetic diet to decrease risk GDM. Dante Vargas MD documented in this encounterMercy Health Kings Mills Hospital01-21-2025 Instructions* Patient Instructions* Milana Quintana MA - 05/04/2024 8:33 AM EST SEQUENTIAL SCREENINGS The [facility] offers sequential screenings for women who [...] testing. It will require an appointment withour holter technician. This is not an ultrasound performed [...] the above symptoms, contact our office at [phone] and ask to speak with anurse. After hours, you can call doctors registry at [phone] OR call [facility] at [phone] ask to have the doctor honey blender paged. If you consider this an emergency, dial 9--1 or go to your nearest emergency department. NEED HELP? Are you dealing with a violent or abusive relationship? Are you a victim of rape or sexual assult? Call [facility] ([place]) 24 hour Crisis Hotline: 335.556.4988 or 185-589-1613. MANUAL Your Guide to a Healthy manual is now on-line. Visit [email or web address] to download your free copy documented in this encounterMercy Health [facility] Hospital01-06-2025 History of Present illness Narrative* Milana Quintana MA - 04/19/2024 8:15 AM EST OB point of care ultrasound was performed. See imaging tab for details. Milana Quintana MA * Mai Blanton APRN.BETITO - 04/19/2024 8:03 AM EST INITIAL OB ASSESSMENT Patient declined manager trade marketing. 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 As applicable, any other physician, advance practice provider, medical student, or other health professional student that will be observing or involved in the sensitive examination for educational or training purposes was discussed with the Patient or Authorized Printer Operator. The Patient or Authorized Printer Operator has agreed to proceed with the sensitive [...] Your guide to a health and the Planner/Scheduler. Reviewed midwifery and document preparation specialist services that are available. 2) Screening: Hemoglobin [...] Mai Blanton APRN.CNP documented in this encounterMercy Health Kings Mills Hospital01-06-2025 NoteHNO ID: [id number] Author: MILANA QUINTANA MA Service: ? Author Type: Paramedic Rn Type: Progress Notes Filed: 04/19/2024 09:03 Note Text: OB point of care ultrasound was performed. See imaging tab for details. [facility]25 NoteHNO ID: [id number] Author: MAI BLANTON APRN.SELECTOR PACKER Service: ? Author Type: Nurse Practitioner Type: Progress Notes Filed: 04/19/2024 09:03 Note Text: INITIAL OB ASSESSMENT Patient declined manager trade marketing. 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 [email or web address] documented in this encounterMercy Health Kings Mills Hospital12-11-2024 Telephone encounter Note * Telephone Encounter - Adelaide Altamirano RN - 03/24/2024 10:57 AM EST New OB appointment is not until 04/19/24. [facility]12-11-2024 Miscellaneous Notes* Telephone Encounter - Adelaide Altamirano RN - 03/24/2024 10:57 AM EST New OB appointment is not until 04/19/24. documented in this encounterMercy Health Kings Mills Hospital06-28-2024 History of Present illness Narrative* Dante Waite MD - 10/10/2023 1:37 PM EDT Sales Manager [employer] offered: Patient declines. Mansi is a 33 [...] L2 SAB0 IAB0 Ectopic0 Multiple0 Live Births2 Clip Loading Machine Feeder History LMP: 10/02/2023 (Exact Date), Unknown Age at Menarche: Age at First : Age at Menopause: Clip Loading Machine Feeder History Comments: Sexual Activity: Yes; Male Contraception: [...] Grandfather Leukemia Maternal Grandfather Heart Paternal Grandmother [place] Stroke Paternal Grandmother Heart Paternal Grandfather 48 [...] external genitalia normal, normal Bartholin's glands, urethra, Perrin's glands, no vulvar lesions, no cervical lesions, [...] Dante Waite MD documented in this encounterMercy Health [facility] Hospital06-07-2024 Telephone encounter Note * Telephone Encounter - Itzel Santiago RN - 09/19/2023 11:39 AM EDT Annual scheduled with RR 11/25/23. Requesting 90 day supply. Requested Prescriptions Pending Prescriptions Disp Refills Desogestrel-Ethinyl Estradiol (KARIVA, 28,) 0.15-0.02 mgx21 /0.01 mg x 5 per tablet 84 tablet 0 Sig: Take 1 tablet by mouth once daily. Itzel Santiago RN [facility]06-07-2024 Miscellaneous Notes* Telephone Encounter - Itzel Santiago RN - 09/19/2023 11:39 AM EDT Annual scheduled with RR 11/25/23. Requesting 90 day supply. Requested Prescriptions Pending Prescriptions Disp Refills Desogestrel-Ethinyl Estradiol (KARIVA, 28,) 0.15-0.02 mgx21 /0.01 mg x 5 per tablet 84 tablet 0 Sig: Take 1 tablet by mouth once daily. Itzel Santiago RN documented in this encounterMercy Health Kings [facility] Hospital03-25-2024 Miscellaneous Notes* Telephone Encounter - Adelaide Altamirano RN - 07/07/2023 12:08 PM EDT [facility] PSS: Please contact patient to schedule annual exam. Adelaide Altamirano RN documented in this encounterMercy Health Kings Mills Hospital11-27-2023 Miscellaneous Notes* Telephone Encounter - Tara Parks APRN.CNM - 03/10/2023 1:37 PM EST Order signed. Tara Parks APRN.CNM * Telephone Encounter - Mare Larios RN - 03/10/2023 10:42 AM EST UA and urine culture orders pending. documented in this encounterMercy Health Kings Mills Hospital11-24-2023 Miscellaneous Notes* Telephone Encounter - Mare Larios RN - 03/07/2023 9:29 AM EST Please review in RR's absence. Diflucan RX pending. documented in this encounterMercy Health Kings Mills Hospital06-05-2023 History of Present illness Narrative* Raimundo [...] 2022 9:26 AM documented in this encounterMercy Health Kings Mills Hospital06-05-2023 History of Present illness Narrative* Best [...] mouth. (Patient not taking: Reported on 03/05/2022) Qekelluz-La-Bao-Fe-FA ( VITAMIN) tab Take 1 tablet by [...] room for further evaluation. Report sent to [facility] by ER passport. Best Lane MD documented in this encounterMercy Health Kings Mills Hospital04-25-2023 Miscellaneous Notes* Telephone Encounter - Kaila Pruitt LPN - 08/06/2022 7:39 AM EDT Pt to check with pharmacy to see if her insurance will allow more than one pack per month to be dispensed. Kaila Pruitt LPN documented in this encounterMercy Health Kings Mills Hospital03-23-2023 Miscellaneous Notes* Telephone Encounter - Dante Waite MD - 07/04/2022 8:34 AM EDT I spent 5 minutes reviewing chart, medication history, replying to patient and sending a new prescription. Dante Waite MD documented in this encounterMercy Health Kings Mills Hospital11-25-2022 Miscellaneous Notes* Telephone Encounter - Kaila [...] Alban Hooker MD documented in this encounterMercy Health Kings Mills Hospital11-23-2022 Miscellaneous Notes* Telephone Encounter - Itzel Santiago RN - 03/06/2022 10:38 AM EST Previous rx only dispensed 1 tablet. Pharmacy requesting new corrected rx. Requested Prescriptions Pending Prescriptions Disp Refills Norethindrone, Contraceptive, 0.35 mg tablet [Pharmacy Med Name: NORETHINDRONE 0.35 MG TABLET] 28 tablet 5 Sig: TAKE 1 TABLET BY MOUTH EVERY DAY Itzel Santiago RN documented in this encounterMercy Health Kings Mills Hospital11-22-2022 History of Present illness Narrative* Alban [...] L2 SAB0 IAB0 Ectopic0 Multiple0 Live Births2 Clip Loading Machine Feeder History LMP: 04/06/2021 (Exact Date), Age at Menarche: Age at First : Age at Menopause: Clip Loading Machine Feeder History Comments: Sexual Activity: Yes; Male Contraception: [...] Grandfather Leukemia Maternal Grandfather Heart Paternal Grandmother [place] Stroke Paternal Grandmother Heart Paternal Grandfather 48 [...] Take 1 tablet by mouth once daily. Jmuzhuze-Bb-Wxh-Fe-FA ( VITAMIN) tab Take 1 tablet by [...] external genitalia normal, normal Bartholin's glands, urethra, Perrin's glands, no vulvar lesions, no cervical lesions, [...] Alban Hooker MD documented in this encounterMercy Health Kings [facility] Hospital11-03-2022 History of Present illness Narrative* Kasey Yang MD - 02/14/2022 10:34 AM EDT Sales Manager [place] offered: Patient declines. VISIT Herb Moran is a 31 year old year old here for visit. Delivery Summary: ROS/ Recovery: Feeding: Breast feeding problems: None Menses since delivery: light flow Menstrual pattern prior to : Regular periods [place] since delivery: Not resumed Depression: denies symptoms [...] Grandfather Leukemia Maternal Grandfather Heart Paternal Grandmother [place] Stroke Paternal Grandmother Heart Paternal Grandfather 48 [...] external genitalia normal, normal Bartholin's glands, urethra, Perrin's glands, no vulvar lesions, no cervical lesions, [...] Kasey Perez MD documented in this encounterMercy Health [facility] Hospital10-06-2022 History of Present illness Narrative* Dante [...] issues Sleep: no sleep concerns, feels rested [place] since delivery: Not resumed Emotional support: Yes [...] Dante Waite MD documented in this encounterMercy Health Kings Mills Hospital09-24-2022 Hospital Discharge instructions Additional Instructions Date of Discharge: 01/05/22[facility] Work Phone: [phone] 354-831809-23-2022 Miscellaneous Notes* Telephone Encounter - Itzel Santiago RN - 01/04/2022 4:41 PM EDT Patient delivered via by Dr. Waite on 01/04/22 at [facility]. See OB history. Itzel Santiago RN documented in this encounterMercy Health Kings Mills Hospital09-20-2022 Miscellaneous Notes* Quick Notes - Dante [...] Dante Waite MD documented in this encounterMercy Health Kings Mills Hospital09-20-2022 Instructions* Patient Instructions* Milana Quintana Wi - 01/01/2022 11:27 AM EDT SEQUENTIAL SCREENINGS The [facility] offers sequential screenings for women who [...] testing. It will require an appointment withour holter technician. This is not an ultrasound performed [...] the above symptoms, contact our office at [phone] and ask to speak with anurse. After hours, you can call doctors registry at [phone] OR call [facility] at [phone] ask to have the doctor honey blender paged. If you consider this an emergency, dial 9--1 or go to your nearest emergency department. NEED HELP? Are you dealing with a violent or abusive relationship? Are you a victim of rape or sexual assult? Call [facility] ([place]) 24 hour Crisis Hotline: 988.631.8945 or 606-059-6404. MANUAL Your Guide to a Healthy manual is now on-line. Visit [email or web address] to download your free copy documented in this encounterMercy Health Kings [facility] Hospital09-13-2022 Miscellaneous Notes* Quick Notes - Kasey [...] Kasey Perez MD documented in this encounterMercy Health Kings Mills Hospital09-13-2022 Instructions* Patient Instructions* Nevaeh Subramanian Ma - 12/25/2021 9:16 AM EDT SEQUENTIAL SCREENINGS The [facility] offers sequential screenings for women who [...] testing. It will require an appointment withour holter technician. This is not an ultrasound performed [...] the above symptoms, contact our office at [phone] and ask to speak with anurse. After hours, you can call doctors registry at [phone] OR call [facility] at [phone] ask to have the doctor honey blender paged. If you consider this an emergency, dial 9-1-1 or go to your nearest emergency department. NEED HELP? Are you dealing with a violent or abusive relationship? Are you a victim of rape or sexual assult? Call [facility] ([place]) 24 hour Crisis Hotline: 306.599.4086 or 519-276-7197. MANUAL Your Guide to a Healthy manual is now on-line. Visit [email or web address] to download your free copy documented in this encounterMercy Health Kings [facility] Hospital09-07-2022 Miscellaneous Notes* Quick Notes - Dante Waite MD - 12/19/2021 3:22 PM EDT RR- No VB/LOF. Good FM. BS log reviewed. Excellent control. Some increased pelvic pressure. Irreg ctxs. BP stable. No edema. Kick counts. F/u in 1 week. Taking iron. Dante Waite MD documented in this encounterMercy Health Kings Mills Hospital09-07-2022 Instructions* Patient Instructions* Milana Quintana Ma - 12/19/2021 3:07 PM EDT SEQUENTIAL SCREENINGS The [facility] offers sequential screenings for women who [...] testing. It will require an appointment withour holter technician. This is not an ultrasound performed [...] the above symptoms, contact our office at [phone] and ask to speak with anurse. After hours, you can call doctors registry at [phone] OR call [facility] at [phone] ask to have the doctor honey blender paged. If you consider this an emergency, dial 8-6-7 or go to your nearest emergency department. NEED HELP? Are you dealing with a violent or abusive relationship? Are you a victim of rape or sexual assult? Call [facility] ([place]) 24 hour Crisis Hotline: 269.205.4324 or 584-240-4706. MANUAL Your Guide to a Healthy manual is now on-line. Visit [email or web address] to download your free copy documented in this encounterMercy Health [facility] Hospital09-01-2022 Miscellaneous Notes* Quick Notes - Dante [...] Dante Waite M.D. documented in this encounterMercy Health Kings [facility] Hospital09-01-2022 Instructions* Patient Instructions* Milana Quintana Ma - 12/13/2021 11:21 AM EDT SEQUENTIAL SCREENINGS The [facility] offers sequential screenings for women who [...] testing. It will require an appointment withour holter technician. This is not an ultrasound performed [...] the above symptoms, contact our office at [phone] and ask to speak with anurse. After hours, you can call doctors registry at [phone] OR call [facility] at [phone] ask to have the doctor honey blender paged. If you consider this an emergency, dial 9-1-4 or go to your nearest emergency department. NEED HELP? Are you dealing with a violent or abusive relationship? Are you a victim of rape or sexual assult? Call [facility] ([place]) 24 hour Crisis Hotline: 600.628.2017 or 868-431-7336. MANUAL Your Guide to a Healthy manual is now on-line. Visit [email or web address] to download your free copy documented in this encounterMercy Health Kings [facility] Hospital08-23-2022 History of Present illness Narrative* Sara [...] severely ill: Yes Patient denies history of Guillain-Charleston Syndrome (a severe paralytic illness): Yes Tdap Adacel injection was given without incident. See immunizations for details of immunizations administered today. VIS sheet provided: Yes Provider Dante Waite MD was present in office at time of injection. Sara Asencio MA documented in this encounterMercy Health Kings Mills Hospital08-23-2022 Miscellaneous Notes* Quick Notes - Dante [...] today.Dante Waite MD documented in this encounterMercy Health Kings [facility] Hospital08-23-2022 Instructions* Patient Instructions* Milana Quintana Ma - 12/04/2021 9:50 AM EDT SEQUENTIAL SCREENINGS The [facility] offers sequential screenings for women who [...] testing. It will require an appointment withour holter technician. This is not an ultrasound performed [...] the above symptoms, contact our office at [phone] and ask to speak with anurse. After hours, you can call doctors registry at [phone] OR call [facility] at [phone] ask to have the doctor honey blender paged. If you consider this an emergency, dial 9-0-0 or go to your nearest emergency department. NEED HELP? Are you dealing with a violent or abusive relationship? Are you a victim of rape or sexual assult? Call [facility] [place] ([place]) 24 hour Crisis Hotline: 120.233.8130 or 411-120-8643. MANUAL Your Guide to a Healthy manual is now on-line. Visit [email or web address] to download your free copy documented in this encounterMercy Health Kings [facility] Hospital08-09-2022 Miscellaneous Notes* Quick Notes - Dante Waite MD - 11/20/2021 10:20 AM EDT RR_ Doing well overall. G ood FM. BS log reviewed, excellent control, continue to monitor. Check USfor growth. C ont. progesterone injections until 36 weeks. kick counts. BPstable. Cont. PNV and Saul Waite MD documented in this encounterMercy Health Kings [facility] Hospital08-09-2022 Instructions* Patient Instructions* Milana Quintana Ma - 11/20/2021 9:49 AM EDT SEQUENTIAL SCREENINGS The [facility] offers sequential screenings for women who [...] testing. It will require an appointment withour holter technician. This is not an ultrasound performed [...] the above symptoms, contact our office at [phone] and ask to speak with anurse. After hours, you can call doctors registry at [phone] OR call [facility] at [phone] ask to have the doctor honey blender paged. If you consider this an emergency, dial 3-0-2 or go to your nearest emergency department. NEED HELP? Are you dealing with a violent or abusive relationship? Are you a victim of rape or sexual assult? Call [facility] ([place]) 24 hour Crisis Hotline: 140.372.7902 or 954-668-6158. MANUAL Your Guide to a Healthy manual is now on-line. Visit [email or web address] to download your free copy documented in this encounterMercy Health [facility] Hospital07-27-2022 Miscellaneous Notes* Quick Notes - Dante Waite MD - 11/07/2021 1:32 PM EDT RR- Good FM. No VB/LOF. BS log reviewed, excellent control and fastings within target now. Cont. ASA for preeclampsia prevention. Dante Waite MD documented in this encounterMercy Health Kings [facility] Hospital07-27-2022 Instructions* Patient Instructions* Milana Quintana Ma - 11/07/2021 1:23 PM EDT SEQUENTIAL SCREENINGS The [facility] offers sequential screenings for women who [...] testing. It will require an appointment withour holter technician. This is not an ultrasound performed [...] the above symptoms, contact our office at [phone] and ask to speak with anurse. After hours, you can call doctors [facility] at [phone] OR call [facility] at [phone] ask to have the doctor honey blender paged. If you consider this an emergency, dial 5-0-7 or go to your nearest emergency department. NEED HELP? Are you dealing with a violent or abusive relationship? Are you a victim of rape or sexual assult? Call [facility] ([facility] 24 hour Crisis Hotline: 832.249.7283 or 927-419-9087. MANUAL Your Guide to a Healthy manual is now on-line. Visit [email or web address] to download your free copy documented in this encounterCleveland [id number] Miscellaneous Notes* Telephone Encounter - Zahira Torres APRN.CNM - 11/01/2021 4:11 PM EDT Rx signed. Zahira Torres APRN.CNM * Telephone Encounter - Adelaide Altamirano RN - 11/01/2021 3:59 PM EDT Refill request received via [employer] for patients blood sugar testing strips. Patient 29w6d. Please file pended order. Adelaide Altamirano RN documented in this encounterMercy Health [facility] Hospital07-06-2022 Miscellaneous Notes* Telephone Encounter - Mare [...] Dante Waite MD documented in this encounterMercy Health Kings [facility] Hospital06-30-2022 Miscellaneous Notes* Telephone Encounter - Kaila Pruitt LPN - 10/11/2021 8:46 AM EDT FMLA paperwork completed and faxed to employer, scanned into EMR and filed in BALANCE RECESSER suite. Kaila Pruitt LPN * Telephone Encounter - Kaila Pruitt LPN - 10/09/2021 12:27 PM EDT [place] paperwork received and completed,placed on providers desk for signature. Kaila Pruitt LPN documented in this encounterMercy Health Kings [facility] Hospital06-28-2022 History of Past illness Narrative* Problem Noted Date Resolved Date Anemia during in second trimester 09/1301/17/2022 Supervision of other high risk pregnancies, firs t trimester 05/29/2021 01/17/2022 Overview: Declines business office assistant at delivery. History of gestational diabe kesha [...] delivery at 36 weeks 1 day. Discussed [place]. Patient is asked to watch the video prior to her appointment with Dr. Waite May 29. TKRN Gestational diabetes mellitus, class A1 11/22/1901/17/2022 Abnormal glucose in , antepartum 201905/29/2021 Overview: 11/16/19: 3hr gtt ordered. Kasey Perez MD Acne 04/19/2011 01/17/2022 documented as of this encounter (statuses as of 01/17/2022) [facility]06-28-[facility] History of Past illness Narrative* Problem Noted Date Resolved Date Anemia during in second trimester 09/1301/17/2022 Supervision of other high risk pregnancies, firs t trimester 05/29/2021 01/17/2022 Overview: Declines business office assistant at delivery. History of gestational diabe kesha [...] this encounter (statuses as of 02/14/2022) [facility] History of Past illness Narrative* Problem Noted Date Resolved Date Anemia during in second trimester 09/1301/17/2022 Supervision of other high risk pregnancies, firs t trimester 05/29/2021 01/17/2022 Overview: Declines business office assistant at delivery. History of gestational diabe kesha in prior , currently 05/24/2021 10/17/2021 Overview: October 09, 2021 abnormal 1 hr, 3hr ordered. Dante aWite MD 05/24/2021 Patient has a history of gestational diabetes that was diet controlled with her last . Will plan on early screening with hemoglobin A1c. TKRN Hx of preeclampsia, prior , currently p regnant 05/24/2021 01/17/2022 Overview: May 29, 2021 ASA candidate History of delivery, currently 05/24/2021 01/17/2022 Overview: 05/24/2021 Patient has a history of delivery at 36 weeks 1 day. Discussed Grano. Patient is asked to watch the video prior to her appointment with Dr. Waite May 29. TKRN Gestational diabetes mellitus, class A1 11/22/1901/17/2022 Abnormal glucose in , antepartum 201905/29/2021 Overview: 11/16/19: 3hr gtt ordered. Kasey Perez MD Acne 04/19/2011 01/17/2022 documented as of this encounter (statuses as of 03/05/2022) [facility] History of Past illness Narrative* Problem Noted Date Resolved Date Anemia during in second trimester 09/1301/17/2022 Supervision of other high risk pregnancies, firs t trimester 05/29/2021 01/17/2022 Overview: Declines business office assistant at delivery. History of gestational diabe kesha [...] this encounter (statuses as of 03/05/2022) [facility] History of Past illness Narrative* Problem Noted Date Resolved Date Anemia during in second trimester 09/1301/17/2022 Supervision of other high risk pregnancies, firs t trimester 05/29/2021 01/17/2022 Overview: Declines business office assistant at delivery. History of gestational diabe kesha [...] delivery at 36 weeks 1 day. Discussed Grano. Patient is asked to watch the video prior to her appointment with Dr. Waite May 29. TKRN Gestational diabetes mellitus, class A1 11/22/1901/17/2022 Abnormal glucose in , antepartum 201905/29/2021 Overview: 11/16/19: 3hr gtt ordered. Kasey Perez MD Acne 04/19/2011 01/17/2022 documented as of this encounter (statuses as of 03/06/2022) [facility] History of Past illness Narrative* Problem Noted Date Resolved Date Anemia during in second trimester 09/1301/17/2022 Supervision of other high risk pregnancies, firs t trimester 05/29/2021 01/17/2022 Overview: Declines business office assistant at delivery. History of gestational diabe kesha [...] delivery at 36 weeks 1 day. Discussed Grano. Patient is asked to watch the video prior to her appointment with Dr. Waite May 29. TKRN Gestational diabetes mellitus, class A1 11/22/1901/17/2022 Abnormal glucose in , antepartum 201905/29/2021 Overview: 11/16/19: 3hr gtt ordered. Kasey Perez MD Acne 04/19/2011 01/17/2022 documented as of this encounter (statuses as of 03/08/2022) [facility] History of Past illness Narrative* Problem Noted Date Resolved Date Anemia during in second trimester 09/1301/17/2022 Supervision of other high risk pregnancies, firs t trimester 05/29/2021 01/17/2022 Overview: Declines business office assistant at delivery. History of gestational diabe kesha [...] delivery at 36 weeks 1 day. Discussed Grano. Patient is asked to watch the video prior to her appointment with Dr. Waite May 29. TKRN Gestational diabetes mellitus, class A1 11/22/1901/17/2022 Abnormal glucose in , antepartum 201905/29/2021 Overview: 11/16/19: 3hr gtt ordered. Kasey Perez MD Acne 04/19/2011 01/17/2022 documented as of this encounter (statuses as of 07/04/2022) [facility] History of Past illness Narrative* Problem Noted Date Resolved Date Anemia during in second trimester 09/1301/17/2022 Supervision of other high risk pregnancies, firs t trimester 05/29/2021 01/17/2022 Overview: Declines business office assistant at delivery. History of gestational diabe kesha [...] delivery at 36 weeks 1 day. Discussed Grano. Patient is asked to watch the video prior to her appointment with Dr. Waite May 29. TKRN Gestational diabetes mellitus, class A1 11/22/1901/17/2022 Abnormal glucose in , antepartum 201905/29/2021 Overview: 11/16/19: 3hr gtt ordered. Kasey Perez MD Acne 04/19/2011 01/17/2022 documented as of this encounter (statuses as of 07/29/2022) [facility] History of Past illness Narrative* Problem Noted Date Resolved Date Anemia during in second trimester 09/1301/17/2022 Supervision of other high risk pregnancies, firs t trimester 05/29/2021 01/17/2022 Overview: Declines business office assistant at delivery. History of gestational diabe kesha [...] delivery at 36 weeks 1 day. Discussed Grano. Patient is asked to watch the video prior to her appointment with Dr. Waite May 29. TKRN Gestational diabetes mellitus, class A1 11/22/1901/17/2022 Abnormal glucose in , antepartum 201905/29/2021 Overview: 11/16/19: 3hr gtt ordered. Kasey Perez MD Acne 04/19/2011 01/17/2022 documented as of this encounter (statuses as of 08/06/2022) [facility] History of Past illness Narrative* Problem Noted Date Resolved Date Anemia during in second trimester 09/1301/17/2022 Supervision of other high risk pregnancies, firs t trimester 05/29/2021 01/17/2022 Overview: Declines business office assistant at delivery. History of gestational diabe kesha [...] delivery at 36 weeks 1 day. Discussed Grano. Patient is asked to watch the video prior to her appointment with Dr. Waite May 29. TKRN Gestational diabetes mellitus, class A1 11/22/1901/17/2022 Abnormal glucose in , antepartum 201905/29/2021 Overview: 11/16/19: 3hr gtt ordered. Kasey Perez MD Acne 04/19/2011 01/17/2022 documented as of this encounter (statuses as of 09/16/2022) [facility] History of Past illness Narrative* Problem Noted Date Diagnosed Date Resolved Date Anemia during in second trimester 10/09/2021 01/17/2022 Supervision of other high ri sk pregnancies, first trimester 05/29/2021 01/17/2022 Overview: Declines business office assistant at delivery. History of gestational diabe kesha [...] delivery at 36 weeks 1 day. Discussed Grano. Patient is asked to watch the video prior to her appointment with Dr. Waite May 29. TKRN Gestational diabetes mellitus, class A1 11/22/2019 01/17/2022 Abnormal glucose in , antepartum 11/16/2019 05/29/2021 Overview: 11/16/19: 3hr gtt ordered. Kasey Perez MD Acne 04/19/2011 01/17/2022 documented as of this encounter (statuses as of 03/07/2023) [facility] History of Past illness Narrative* Problem Noted Date Diagnosed Date Resolved Date Anemia during in second trimester 10/09/2021 01/17/2022 Supervision of other high ri sk pregnancies, first trimester 05/29/2021 01/17/2022 Overview: Declines business office assistant at delivery. History of gestational diabe kesha [...] delivery at 36 weeks 1 day. Discussed Grano. Patient is asked to watch the video prior to her appointment with Dr. Waite May 29. TKRN Gestational diabetes mellitus, class A1 11/22/2019 01/17/2022 Abnormal glucose in , antepartum 11/16/2019 05/29/2021 Overview: 11/16/19: 3hr gtt ordered. Kasey Perez MD Acne 04/19/2011 01/17/2022 documented as of this encounter (statuses as of 03/11/2023) [facility] History of Past illness Narrative* Problem Noted Date Diagnosed Date Resolved Date Anemia during in second trimester 10/09/2021 01/17/2022 Supervision of other high ri sk pregnancies, first trimester 05/29/2021 01/17/2022 Overview: Declines business office assistant at delivery. History of gestational diabe kesha [...] delivery at 36 weeks 1 day. Discussed Grano. Patient is asked to watch the video prior to her appointment with Dr. Waite May 29. TKRN Gestational diabetes mellitus, class A1 11/22/2019 01/17/2022 Abnormal glucose in , antepartum 11/16/2019 05/29/2021 Overview: 11/16/19: 3hr gtt ordered. Kasey Perez MD Acne 04/19/2011 01/17/2022 documented as of this encounter (statuses as of 07/07/2023) [facility]06[facility]28-[facility] Miscellaneous Notes* Telephone Encounter - Itzel [...] and start fe. [facility] Miscellaneous Notes* Quick Notes - Dante Waite MD - 10/09/2021 10:38 AM EDT RR_ No VB/LOF. Good FM. 28 week labs today. Plans OCPs for contraception. TDAP next visit. Planningcovid booster. Declines LARC at delivery. Plans . F/u in 2-3 weeks or prn. Dante Waite MD [facility] Instructions* Patient Instructions* Milana Quintana Ma - 10/09/2021 9:58 AM EDT SEQUENTIAL SCREENINGS The [facility] offers sequential screenings for women who [...] testing. It will require an appointment withour holter technician. This is not an ultrasound performed [...] the above symptoms, contact our office at [phone] and ask to speak with anurse. After hours, you can call doctors registry at [phone] OR call [facility] at [phone] ask to have the doctor honey blender paged. If you consider this an emergency, dial 9--7 or go to your nearest emergency department. NEED HELP? Are you dealing with a violent or abusive relationship? Are you a victim of rape or sexual assult? Call [facility] ([place]) 24 hour Crisis Hotline: 402.936.7012 or 877-006-6843. MANUAL Your Guide to a Healthy manual is now on-line. Visit [email or web address] to download your free copy documented [facility] Miscellaneous Notes* Quick Notes - Dante Waite MD - 09/11/2021 10:02 AM EDT RR- No VB/LOF. Good FM. On ASA and progesterone. Some constipation but miralax every other day helps F/u in 4 weeks or prn. 28 week albs next visit. Dante Waite MD documented in this encounterMer[facility] Instructions* Patient Instructions* Milana Quintana Ma - 09/11/2021 9:37 AM EDT SEQUENTIAL SCREENINGS The [facility] offers sequential screenings for women who [...] testing. It will require an appointment withour holter technician. This is not an ultrasound performed [...] the above symptoms, contact our office at [phone] and ask to speak with anurse. After hours, you can call doctors registry at [phone] OR call [facility] at [phone] ask to have the doctor honey blender paged. If you consider this an emergency, dial 9--1 or go to your nearest emergency department. NEED HELP? Are you dealing with a violent or abusive relationship? Are you a victim of rape or sexual assult? Call [facility] ([place]) 24 hour Crisis Hotline: 219.814.8156 or 518-819-5236. MANUAL Your Guide to a Healthy manual is now on-line. Visit [email or web address] to download your free copy documented in this encounterMer[facility] Miscellaneous Notes* Telephone Encounter - Dante Waite MD - 08/17/2021 10:45 AM EDT filed. Thanks. Dante Waite MD * Telephone Encounter - Mare Larios RN - 08/17/2021 10:23 AM EDT 19w0d Patient seen in office today for Progesterone education and administration. Please file pending CAMorder. Thank you. Mare Larios RN documented in this encounterMer[facility]05[facility] History of Present illness Narrative* Mare [...] All questions answered. Handouts given. Dose: 250mg/ml Mechanism Assembler: Amneal Lot #: [id number] Expiration Date: 07/2022 Site: right upper quadrant gluteus Verified by GISSELLE Cao The date of the last injection was today The date due for the next injection is one week Provider Dante Waite MD was present in office at time of injection Mare Larios RN documented in this encounterMer[facility] Miscellaneous Notes* Quick Notes - Dante [...] Dante Waite MD documented in this encounterMercy [facility]05-02-2022 Instructions* Patient Instructions* Mary Bonilla Ma - 08/13/2021 9:35 AM EDT SEQUENTIAL SCREENINGS The [facility] offers sequential screenings for women who [...] testing. It will require an appointment withour holter technician. This is not an ultrasound performed [...] the above symptoms, contact our office at [phone] and ask to speak with anurse. After hours, you can call doctors registry at [phone] OR call [facility] at [phone] ask to have the doctor honey blender paged. If you consider this an emergency, dial 9-1-5 or go to your nearest emergency department. NEED HELP? Are you dealing with a violent or abusive relationship? Are you a victim of rape or sexual assult? Call [facility] ([place]) 24 hour Crisis Hotline: 609.868.7594 or 795-404-7057. MANUAL Your Guide to a Healthy manual is now on-line. Visit [email or web address] to download your free copy documented in this encounterMer[facility]04[facility] Miscellaneous Notes* Telephone Encounter - Adelaide Altamirano RN - 08/07/2021 8:41 AM EDT Patient still has not received her shipment. Can you check into this? Adelaide Altamirano RN documented in this encounterMer[facility]04[facility]22 Miscellaneous Notes* Quick Notes - Dante Waite MD - 07/20/2021 10:05 AM EDT RR- No VB/LOF. No flutters yet. Anatomy uS scheduled. On ASA and taking PNV. Dante Waite MD documented in this encounterMer[facility]04-[facility]-2022 Instructions* Patient Instructions* Milana Quintana Ma - 07/20/2021 9:38 AM EDT SEQUENTIAL SCREENINGS The [facility] offers sequential screenings for women who [...] testing. It will require an appointment withour holter technician. This is not an ultrasound performed [...] the above symptoms, contact our office at [phone] and ask to speak with anurse. After hours, you can call doctors registry at [phone] OR call [facility] at [phone] ask to have the doctor honey blender paged. If you consider this an emergency, dial 9-1-8 or go to your nearest emergency department. NEED HELP? Are you dealing with a violent or abusive relationship? Are you a victim of rape or sexual assult? Call [facility] ([facility] 24 hour Crisis Hotline: 365.332.2935 or 272-616-1296. MANUAL Your Guide to a Healthy manual is now on-line. Visit [email or web address] to download your free copy documented in this encounterMercy [facility]04[facility] Miscellaneous Notes* Telephone Encounter - Isatu Zamora RN - 07/17/2021 9:40 AM EDT Form faxed * Telephone Encounter - Isatu Zamora RN - 07/17/2021 8:05 AM EDT Received [employer] form for Linda for Dr Narinder guerra. Please fax to number on front of form after signature is obtained documented in this encounterMercy [facility]02[facility] History of Past illness Narrative* Problem [...] this encounter (statuses as of 10/17/2021) [facility] History of Past illness Narrative* Problem [...] this encounter (statuses as of 11/01/2021) [facility] History of Past illness Narrative* Problem [...] this encounter (statuses as of 11/07/2021) [facility] History of Past illness Narrative* Problem [...] this encounter (statuses as of 11/20/2021) [facility] History of Past illness Narrative* Problem [...] this encounter (statuses as of 12/04/2021) [facility] History of Past illness Narrative* Problem [...] this encounter (statuses as of 12/04/2021) [facility] History of Past illness Narrative* Problem [...] this encounter (statuses as of 12/13/2021) [facility] History of Past illness Narrative* Problem [...] this encounter (statuses as of 12/19/2021) [facility] History of Past illness Narrative* Problem [...] this encounter (statuses as of 12/25/2021) [facility] History of Past illness Narrative* Problem [...] this encounter (statuses as of 01/02/2022) [facility] of Past illness Narrative* Problem [...] this encounter (statuses as of 01/04/2022) [facility] History of Past illness Narrative* Problem Noted Date Resolved Date Gestational diabetes mellitus, class A1 11/22/19 20 05/29/2021 Abnormal glucose in , antepartum 201905/29/2021 Overview: 11/16/19: 3hr gtt ordered. Kasey Perez MD documented as of this encounter (statuses as of 07/17/2021) [facility] History of Past illness Narrative* Problem Noted Date Resolved Date Gestational diabetes mellitus, class A1 11/22/1905/29/2021 Abnormal glucose in , antepartum 201905/29/2021 Overview: 11/16/19: 3hr gtt ordered. Kasey Perez MD documented as of this encounter (statuses as of 07/20/2021) [facility] History of Past illness Narrative* Problem Noted Date Resolved Date Gestational diabetes mellitus, class A1 11/22/19 20 05/29/2021 Abnormal glucose in , antepartum 201905/29/2021 Overview: 11/16/19: 3hr gtt ordered. Kasey Perez MD documented as of this encounter (statuses as of 08/07/2021) [address]2020 History of Past illness Narrative* Problem Noted Date Resolved Date Gestational diabetes mellitus, class A1 11/22/1905/29/2021 Abnormal glucose in , antepartum 201905/29/2021 Overview: 11/16/19: 3hr gtt ordered. Kasey Perez MD documented as of this encounter (statuses as of 08/13/2021) [address]2020 History of Past illness Narrative* Problem Noted Date Resolved Date Gestational diabetes mellitus, class A1 11/22/1905/29/2021 Abnormal glucose in , antepartum 201905/29/2021 Overview: 11/16/19: 3hr gtt ordered. Kasey Perez MD documented as of this encounter (statuses as of 08/13/2021) [place] [address]10-2020 History of Past illness Narrative* Problem Noted Date Resolved Date Gestational diabetes mellitus, class A1 11/22/1905/29/2021 Abnormal glucose in , antepartum 201905/29/2021 Overview: 11/16/19: 3hr gtt ordered. Kasey Perez MD documented as of this encounter (statuses as of 08/15/2021) [place] [address] History of Past illness Narrative* Problem Noted Date Resolved Date Gestational diabetes mellitus, class A1 11/22/1905/29/2021 Abnormal glucose in , antepartum 201905/29/2021 Overview: 11/16/19: 3hr gtt ordered. Kasey Perez MD documented as of this encounter (statuses as of 08/17/2021) [address]2020 History of Past illness Narrative* Problem Noted Date Resolved Date Gestational diabetes mellitus, class A1 11/22/1905/29/2021 Abnormal glucose in , antepartum 201905/29/2021 Overview: 11/16/19: 3hr gtt ordered. Kasey Perez MD documented as of this encounter (statuses as of 09/11/2021) [address]2020 History of Past illness Narrative* Problem Noted Date Resolved Date Gestational diabetes mellitus, class A1 11/22/1905/29/2021 Abnormal glucose in , antepartum 201905/29/2021 Overview: 11/16/19: 3hr gtt ordered. Kasey Perez MD documented as of this encounter (statuses as of 09/17/2021) [address] History of Past illness Narrative* Problem Noted Date Resolved Date Gestational diabetes mellitus, class A1 11/22/1905/29/2021 Abnormal glucose in , antepartum 201905/29/2021 Overview: 11/16/19: 3hr gtt ordered. Kasey Perez MD documented as of this encounter (statuses as of 10/09/2021) [address]2020 History of Past illness Narrative* Problem Noted Date Resolved Date Gestational diabetes mellitus, class A1 11/22/1905/29/2021 Abnormal glucose in , antepartum 201905/29/2021 Overview: 11/16/19: 3hr gtt ordered. Kasey Perez MD documented as of this encounter (statuses as of 10/09/2021) [address] History of Past illness Narrative* Problem Noted Date Resolved Date Gestational diabetes mellitus, class A1 11/22/1905/29/2021 Abnormal glucose in , antepartum 201905/29/2021 Overview: 8/4/20: 3hr gtt ordered. Kasey Perez MD documented as of this encounter (statuses as of 10/11/2021) [facility] of Past illness Narrative* Problem Noted Date Resolved Date Gestational diabetes mellitus, class A1 11/22/19 20 05/29/2021 Abnormal glucose in , antepartum 201905/29/2021 Overview: 11/16/19: 3hr gtt ordered. Kasey Perez MD documented as of this encounter (statuses as of 10/16/2021) [facility] Zelaya [facility] September 16, 2022 10:47am Note Date/Time September 16, 2022 10:07 am [facility] Medical Records Department [address] [place] [address] Emergency Department Summary 09/16/22 MR#: [id number] Acct: [id number] Name: HERB MORAN Rep #:[id number] : 1990 32 From: Leonel Zelaya MD [...] It is sharp and stabbing [facility] Medical History (Updated 09/16/22 @ 10:46 by [...] about a pulmonary embolism, she traveled to [place] and has pleuritic chest pain. This is [...] 81.2 H Lymph % (Auto) 13.7 L [place] % (Auto) 4.0 Eos % (Auto) 0.5 [...] rhythm with a rate of 84. Normal ND and QTc intervals. No ischemic changes. Normal [...] your Primary Care Provider. Call [facility] ([phone]) or report to the closest Emergency Room. Call 911 if necessary. 09/16/22 1047 <Electronically signed by Leonel Zelaya MD> Cosigner Signature (if applicable): CC: Dr. Kathy Vyas MD ~ Signed [facility] Work Phone: Evaluation note* Diagnosis 15 weeks gestation of - Primary state, incidental Encounter for supervision of other normal in second trimester [facility]* Diagnosis Encounter for anatomic survey- Primary 18 weeks gestation of state, incidental [facility] Encounter for supervision of other normal in second trimester- Primary 18 weeks gestation of state, incidental [facility] Diagnosis History of delivery, currently - Primary with history of pre-term labor [facility] Diagnosis 22 weeks gestation of - Primary state, incidental History of delivery, currently with history of pre-term labor Encounter for supervision of other normal in second trimester [facility] Diagnosis 26 weeks gestation of - Primary state, incidental History of delivery, currently with history of pre-term labor Encounter for supervision of other normal in second trimester [facility]* Diagnosis Abnormal glucose in , antepartum- Primary Abnormal maternal glucose tolerance, antepartum [facility] Diagnosis Abnormal maternal glucose tolerance, antepartum- Primary [facility] Diagnosis Abnormal maternal glucose tolerance, antepartum [facility]* Diagnosis 30 weeks gestation of - Primary state, incidental Diet controlled gestational diabetes mellitus (GDM) in third trimester documented [facility] [facility] Diagnosis Diet controlled gestational diabetes mellitus (GDM) in third trimester- Primary 32 weeks gestation of state, incidental Supervision of other high risk pregnancies, third trimester [facility]* Diagnosis Gestational diabetes mellitus, class A1- Primary Abnormal maternal glucose tolerance, complicating , childbirth, or the puerperium, unspecified as to episode of care 34 weeks gestation of state, incidental [facility] Diagnosis Diet controlled gestational diabetes mellitus (GDM) in third trimester- Primary 34 weeks gestation of state, incidental Need for Tdap vaccination Need for prophylactic vaccination with combined gapmpipjth-gsltgvm-vzgdjqatz (DTP) vaccine documented in this encounter [facility] noteNo assessment information availableWFairfield Medical Center Work Phone: Evaluation note* Diagnosis 35 weeks gestation of - Primary state, incidental Diet controlled gestational diabetes mellitus (GDM) in third trimester Supervision of other high risk pregnancies, first trimester [facility] Diagnosis 36 weeks gestation of - Primary state, incidental Diet controlled gestational diabetes mellitus (GDM) in third trimester Supervision of other high risk pregnancies, first trimester documented [facility]* Diagnosis Gestational diabetes mellitus, class A1- Primary Abnormal maternal glucose tolerance, complicating , childbirth, or the puerperium, unspecified as to episode of care Anemia during in second trimester Hx of preeclampsia, prior , currently with other poor obstetric history 37 weeks gestation of state, incidental [facility] Diagnosis 38 weeks gestation of - Primary state, incidental Gestational diabetes mellitus, class A1 Abnormal maternal glucose tolerance, complicating , childbirth, or the puerperium, unspecified as to episode of care Hx of preeclampsia, prior , currently with other poor obstetric history [facility] Diagnosis Onset Date Resolution Status 34 weeks gestation of acute Fall at home acute 39 weeks gestation of acute GDM, class A1 acute Multiparity acute (spontaneous vaginal delivery) acute [facility] Work Phone: Evaluation note* Diagnosis Routine follow-up- Primary [facility]* Diagnosis care and examination- Primary Routine follow-up [facility]* Diagnosis Vaginal discharge- Primary Leukorrhea, not specified as infective Vaginal odor Unspecified symptom associated with female genital organs [facility] Diagnosis Acute cough- Primary Discomfort in chest Other chest pain LEDBETTER (dyspnea on exertion) Other dyspnea and respiratory abnormality [facility] Diagnosis Acute vaginitis- Primary Vaginitis and vulvovaginitis, unspecified [facility]* Diagnosis Dysuria- Primary [facility] Diagnosis Encounter for gynecological examination (general) (routine) without abnormal findings- Primary [facility]* Diagnosis Acute cough LEDBETTER (dyspnea on exertion) Other dyspnea and respiratory abnormality [facility]* Diagnosis with uncertain dates, antepartum- Primary state, incidental Encounter for supervision of normal in multigravida 7 weeks gestation of state, incidental Hx of preeclampsia, prior , currently with other poor obstetric history [facility]* Diagnosis Encounter for supervision of normal in multigravida- Primary Hx of preeclampsia, prior , currently with other poor obstetric history 9 weeks gestation of state, incidental [facility]* Diagnosis size consistent with dates during in first trimester- Primary 9 weeks gestation of state, incidental [facility]* Diagnosis Encounter for supervision of normal in multigravida- Primary Hx of preeclampsia, prior , currently with other poor obstetric history 11 weeks gestation of state, incidental [facility]* Diagnosis Hx of preeclampsia, prior , currently - Primary with other poor obstetric history Encounter for supervision of normal in multigravida 13 weeks gestation of state, incidental [facility]* Diagnosis Encounter for screening for malformation using ultrasound- Primary 13 weeks gestation of state, incidental documented in this encounter [facility] note* Diagnosis Encounter for supervision of [...] normal in multigravida documented in this encounter [facility] note* Diagnosis Encounter for supervision of normal in multigravida (HCC)- Primary Hx of preeclampsia, prior , currently ([facility]) with other poor obstetric history 16 weeks gestation of ([facility]) state, incidental Supervision of high risk in second trimester ([facility])- Primary Unspecified high-risk 20 weeks gestation of ([facility]) state, incidental Hx of preeclampsia, prior , currently (HCC) with other poor obstetric history Hx of gestational diabetes in prior , currently ([facility]) with other poor obstetric history documented in this encounter [facility] note* Diagnosis Encounter for supervision of normal in multigravida (HCC)- Primary Hx of preeclampsia, prior , currently (HCC) with other poor obstetric history 16 weeks gestation of ([facility]) state, incidental Supervision of high risk in second trimester (HCC)- Primary Unspecified high-risk 24 weeks gestation of ([facility]) state, incidental Screening for diabetes mellitus * Assessment & Plan Note - Dante Waite MD - 08/18/2024 8:35 AM EDT Associated Problem(s): Supervision of high risk in second trimester (HCC) documented in this encounter [facility] note* Diagnosis Encounter for supervision of normal in multigravida ([facility])- Primary Hx of preeclampsia, prior , currently ([facility]) with other poor obstetric history 16 weeks gestation of ([facility]) state, incidental Supervision of high risk in second trimester ([facility])- Primary Unspecified high-risk 24 weeks gestation of ([facility]) state, incidental Screening for diabetes mellitus Supervision of high risk in third trimester ([facility])- Primary Unspecified high-risk 28 weeks gestation of ([facility]) state, incidental Need for vaccination Need for prophylactic vaccination and inoculation against unspecified single disease documented in this encounter [facility] note* Diagnosis Encounter for supervision of normal in multigravida ([facility])- Primary Hx of preeclampsia, prior , currently ([facility]) with other poor obstetric history 16 weeks gestation of ([facility]) state, incidental Supervision of high risk in second trimester ([facility])- Primary Unspecified high-risk 24 weeks gestation of ([facility]) state, incidental Screening for diabetes mellitus Supervision of high risk in third trimester ([facility])- Primary Unspecified high-risk 30 weeks gestation of ([facility]) state, incidental Hx of preeclampsia, prior , currently ([facility]) with other poor obstetric history Hx of gestational diabetes in prior , currently ([facility]) with other poor obstetric history Anemia during in third trimester ([facility]) Urinary frequency Fever, unspecified fever cause documented in this encounter [facility] note* Diagnosis Encounter for supervision of normal in multigravida ([facility])- Primary Hx of preeclampsia, prior , currently ([facility]) with other poor obstetric history 16 weeks gestation of ([facility]) state, incidental Supervision of high risk in second trimester ([facility])- Primary Unspecified high-risk 24 weeks gestation of ([facility]) state, incidental Screening for diabetes mellitus Supervision of high risk in third trimester ([facility])- Primary Unspecified high-risk Hx of preeclampsia, prior , currently ([facility]) with other poor obstetric history Anemia during in third trimester ([facility]) 32 weeks gestation of ([facility]) state, incidental * Assessment & Plan Note - Dante Waite MD - 10/13/2024 8:45 AM EDT Associated Problem(s): Hx of preeclampsia, prior , currently ([facility]) bp stable Orders: COMPLETE BLOOD COUNT; Future * Assessment & Plan Note - Dante Waite MD - 10/13/2024 8:45 AM EDT Associated Problem(s): Anemia during in third trimester ([facility]) Orders: COMPLETE BLOOD COUNT; Future [facility]* Diagnosis Encounter for supervision of normal in multigravida ([facility])- Primary Hx of preeclampsia, prior , currently ([facility]) with other poor obstetric history 16 weeks gestation of ([facility]) state, incidental Supervision of high risk in second trimester ([facility])- Primary Unspecified high-risk 24 weeks gestation of ([facility]) state, incidental Screening for diabetes mellitus Supervision of high risk in third trimester ([facility])- Primary Unspecified high-risk Hx of preeclampsia, prior , currently ([facility]) with other poor obstetric history Anemia during in third trimester ([facility]) 32 weeks gestation of ([facility]) state, incidental Supervision of high risk in third trimester ([facility])- Primary Unspecified high-risk Hx of preeclampsia, prior , currently ([facility]) with other poor obstetric history Anemia during in third trimester ([facility]) 34 weeks gestation of ([facility]) state, incidental [facility]* Diagnosis Encounter for supervision of normal in multigravida ([facility])- Primary Hx of preeclampsia, prior , currently ([facility]) with other poor obstetric history 16 weeks gestation of ([facility]) state, incidental Supervision of high risk in second trimester ([facility])- Primary Unspecified high-risk 24 weeks gestation of ([facility]) state, incidental Screening for diabetes mellitus Supervision of high risk in third trimester ([facility])- Primary Unspecified high-risk Hx of preeclampsia, prior , currently ([facility]) with other poor obstetric history Anemia during in third trimester ([facility]) 32 weeks gestation of ([facility]) state, incidental Supervision of high risk in third trimester ([facility])- Primary Unspecified high-risk Hx of preeclampsia, prior , currently ([facility]) with other poor obstetric history 36 weeks gestation of ([facility]) state, incidental Breech presentation with problem, single or unspecified fetus ([facility]) * Assessment & Plan Note - Dante Waite MD - 11/10/2024 10:57 AM EDT Associated Problem(s): Hx of preeclampsia, prior , currently ([facility]) bp stable, call for signs/symptoms of preeclampsia Orders: URINE OB DIP B/O ROUTINE, GROUP B STREPTOCOCCUS BY PCR * Assessment & Plan Note - Dante Waite MD - 11/10/2024 10:57 AM EDT Associated Problem(s): Breech presentation with problem ([facility]) r/b/a to ECV reviewed, desires to attempt if still breech next week. [facility]* Diagnosis Encounter for supervision of normal in multigravida ([facility])- Primary Hx of preeclampsia, prior , currently ([facility]) with other poor obstetric history 16 weeks gestation of ([facility]) state, incidental Supervision of high risk in second trimester ([facility])- Primary Unspecified high-risk 24 weeks gestation of ([facility]) state, incidental Screening for diabetes mellitus Supervision of high risk in third trimester ([facility])- Primary Unspecified high-risk Hx of preeclampsia, prior , currently ([facility]) with other poor obstetric history Anemia during in third trimester ([facility]) 32 weeks gestation of ([facility]) state, incidental Supervision of high risk in third trimester ([facility])- Primary Unspecified high-risk Hx of preeclampsia, prior , currently ([facility]) with other poor obstetric history 36 weeks gestation of ([facility]) state, incidental Breech presentation with problem, single or unspecified fetus ([facility]) Supervision of high risk in third trimester ([facility])- Primary Unspecified high-risk Hx of preeclampsia, prior , currently ([facility]) with other poor obstetric history Breech presentation with problem, single or unspecified fetus ([facility]) 36 weeks gestation of ([facility]) state, incidental Anemia during in third trimester ([facility]) documented in this encounter [facility] note* Diagnosis Encounter for supervision of normal in multigravida ([facility])- Primary Hx of preeclampsia, prior , currently ([facility]) with other poor obstetric history 16 weeks gestation of ([facility]) state, incidental Supervision of high risk in second trimester ([facility])- Primary Unspecified high-risk 24 weeks gestation of ([facility]) state, incidental Screening for diabetes mellitus Supervision of high risk in third trimester ([facility])- Primary Unspecified high-risk Hx of preeclampsia, prior , currently ([facility]) with other poor obstetric history Anemia during in third trimester ([facility]) 32 weeks gestation of ([facility]) state, incidental Supervision of high risk in third trimester ([facility])- Primary Unspecified high-risk Hx of preeclampsia, prior , currently ([facility]) with other poor obstetric history 36 weeks gestation of ([facility]) state, incidental Breech presentation with problem, single or unspecified fetus ([facility]) 37 weeks gestation of ([facility])- Primary state, incidental Supervision of high risk in third trimester ([facility]) Unspecified high-risk documented in this encounter [facility] note* Diagnosis Encounter for supervision of normal in multigravida ([facility])- Primary Hx of preeclampsia, prior , currently ([facility]) with other poor obstetric history 16 weeks gestation of ([facility]) state, incidental Supervision of high risk in second trimester ([facility])- Primary Unspecified high-risk 24 weeks gestation of ([facility]) state, incidental Screening for diabetes mellitus Supervision of high risk in third trimester ([facility])- Primary Unspecified high-risk Hx of preeclampsia, prior , currently ([facility]) with other poor obstetric history Anemia during in third trimester ([facility]) 32 weeks gestation of ([facility]) state, incidental Supervision of high risk in third trimester (HCC)- Primary Unspecified high-risk Hx of preeclampsia, prior , currently (HCC) with other poor obstetric history 36 weeks gestation of ([facility]) state, incidental Breech presentation with problem, single or unspecified fetus (HCC) Supervision of high risk in third trimester (HCC)- Primary Unspecified high-risk Hx of preeclampsia, prior , currently (HCC) with other poor obstetric history Breech presentation with problem, single or unspecified fetus (HCC) Anemia during in third trimester (HCC) 38 weeks gestation of ([facility]) state, incidental * Assessment & Plan Note - Kasey Martines MD - 11/24/2024 10:07 AM EDTAssociated Problem(s): Hx of preeclampsia, prior , currently ([facility]) Orders: URINE OB DIP B/O * Assessment & Plan Note - Kasey Martines MD - 11/24/2024 10:07 AM EDTAssociated Problem(s): Breech presentation with problem ([facility]) Planned cs Orders: URINE OB DIP B/O * Assessment & Plan Note - Kasey Martines MD - 11/24/2024 10:07 AM EDTAssociated Problem(s): Anemia during in third trimester ([facility]) Continue PO iron Orders: URINE OB DIP B/O [facility] Additional Instructions Keep next follow up appointment.[facility] Work Phone: Progress note Author Alessandra Clemens [facility] Note Date/Time November 15, 2024 6:5 7pm [facility] Medical Records Department [address] [facility] [place] [address] Progress Note - OBGYN 11/15/241851 MR#: [id number] Acct: [id number] Name: HERB MORAN Rep #:[id number] : 1990 34 From: Alessandra Clemens DO PCP: Dr. Kathy Vyas MD Status:REG [facility] Location: [place] [address] Subjective Subjective Patient has been having contractions [...] Cosigner Signature (if applicable): CC: ~ Signed [facility] Work Phone: [facility] (n[facility]ative[facility] Diagnostic Procedure Only (Routine) - Authorized Specialty Diagnoses / Procedures Referred By Contac t Referred To Contact [facility] Diagnoses Diet controlled gestational diabetes mellitus (GDM) in third trimester 32 weeks gestation of Supervision of other high risk pregnancies, third trimester Procedures OBSTETRIC ULTRASOUND WHI US PREG UTERUS AFTER 1ST TRIMEST GESTATION Dante Waite MD [address] [place] [address] [address] Referral ID Status Reason Start Date Expiration Date Visits Requested Visits Authorized [id number] Authorized Auto-Generat ed Referral 11/20/2021 11/20/2022 [facility] Diagnostic Procedure Only (Routine) - Authorized Specialty Diagnoses / Procedures Referred By Contac t Referred To Contact [facility] Diagnoses 7 weeks gestation of Procedures OBSTETRIC ULTRASOUND WHI US PREG UTERUS AFTER 1ST TRIMEST GESTATION Mai Blanton APRN.CNP [address] [place] [address] [address] Referral ID Status Reason Start Date Expiration Date Visits Requested Visits Authorized [id number] Authorized Auto-Generat ed Referral 04/19/2024 04/19/2025 1 1 [facility] for referral (narrative)* Diagnostic Procedure Only (Routine) - Authorized Specialty Diagnoses / Procedures Referred By Contac t Referred To Contact [facility] Diagnoses Encounter for supervision of normal in multigravida Hx of preeclampsia, prior , currently 9 weeks gestation of Procedures OBSTETRIC ULTRASOUND WHI US PREG UTERUS AFTER 1ST TRIMEST GESTATION Danet Waite MD [address] [place] [address] [facility] [address] [place] [address] Referral ID Status Reason Start Date Expiration Date Visits Requested Visits Authorized [id number] Authorized Auto-Generat ed Referral 05/04/2024 05/04/2025 1 1 * Diagnostic Procedure Only (Routine) - Authorized Specialty Diagnoses / Procedures Referred By Ana t Referred To Contact [facility] Diagnoses Encounter for supervision of normal in multigravida Hx of preeclampsia, prior , currently 9 weeks gestation of Procedures OBSTETRIC ULTRASOUND WHI US PREG UTERUS AFTER 1ST TRIMEST GESTATION Dante Waite MD [address] [place] [address] [place] [address] [place] [address] Referral ID Status Reason Start Date Expiration Date Visits Requested Visits Authorized [id number] Authorized Auto-Generat ed Referral 05/04/2024 05/04/2025 1 1 [facility] (narrative)No reason for referral information availableWFairfield Medical Center Work Phone: Reason for visit Narrative* Diagnostic Procedure Only (Routine) - Closed Specialty Diagnoses / Procedures Referred By Ana dennis Referred To Contact [facility] Diagnoses 7 weeks gestation of Procedures OBSTETRIC ULTRASOUND WHI US PREG UTERUS AFTER 1ST TRIMEST GESTATION Mai Blanton APRN.SELECTOR PACKER [address] [place] [address] [address] Referral ID Status Reason Start Date Expiration Date V isits Requested Visits Authorized [id number] Closed Auto-Generate d Referral 04/19/2024 04/19/2025 1 1 [facility] Medications Administered Section Inactive Administered Medications [...] No January 10, 2020 7:37am Power of Delivery Supervisor No December 7:37am Advance Directive Response Recorded Date/ Time Name of Medical Power of Delivery Supervisor Alexis Dean January 04, 2022 7:26am Living Will Yes January 04, 2022 7:26am Power of Delivery Supervisor Yes December 7:26am Advance Directive Response Recorded Date/ Time Living Will Yes September 16, 2022 9 :55am Power of Delivery Supervisor Yes September 16, 2022 9:55am Name of Medical Power of Delivery Supervisor ALEXIS MORAN AND ТАТЬЯНА WILLIS September 16, [...] prosecute any alcohol or drug abuse patient.[facility] HospitalIn the event this information is protected by the Federal Confidentiality of Alcohol and Drug Abuse Patient Records regulations: The Federal rules restrict any use of the information to criminally investigate or prosecute any alcohol or drug abuse patient.[facility] HospitalIn the event this information is protected by the Federal Confidentiality of Alcohol and Drug Abuse Patient Records regulations: The Federal rules restrict any use of the information to criminally investigate or prosecute any alcohol or drug abuse patient.[facility] HospitalIn the event this information is protected by the Federal Confidentiality of Alcohol and Drug Abuse Patient Records regulations: The Federal rules restrict any use of the information to criminally investigate or prosecute any alcohol or drug abuse patient.[facility] HospitalIn the event this information is protected [...] prosecute any alcohol or drug abuse patient.[facility] HospitalIn the event this information is protected by the Federal Confidentiality of Alcohol and Drug Abuse Patient Records regulations: The Federal rules restrict any use of the information to criminally investigate or prosecute any alcohol or drug abuse patient.[facility] HospitalIn the event this information is protected by the Federal Confidentiality of Alcohol and Drug Abuse Patient Records regulations: The Federal rules restrict any use of the information to criminally investigate or prosecute any alcohol or drug abuse patient.[facility] HospitalIn the event this information is protected by the Federal Confidentiality of Alcohol and Drug Abuse Patient Records regulations: The Federal rules restrict any use of the information to criminally investigate or prosecute any alcohol or drug abuse patient.[facility] HospitalIn the event this information is protected by the Federal Confidentiality of Alcohol and Drug Abuse Patient Records regulations: The Federal rules restrict any use of the information to criminally investigate or prosecute any alcohol or drug abuse patient.[facility] HospitalIn the event this information is protected by the Federal Confidentiality of Alcohol and Drug Abuse Patient Records regulations: The Federal rules restrict any use of the information to criminally investigate or prosecute any alcohol or drug abuse patient.[facility] HospitalIn the event this information is protected by the Federal Confidentiality of Alcohol and Drug Abuse Patient Records regulations: The Federal rules restrict any use of the information to criminally investigate or prosecute any alcohol or drug abuse patient.[facility] HospitalIn the event this information is protected by the Federal Confidentiality of Alcohol and Drug Abuse Patient Records regulations: The Federal rules restrict any use of the information to criminally investigate or prosecute any alcohol or drug abuse patient.[facility] HospitalIn the event this information is protected by the Federal Confidentiality of Alcohol and Drug Abuse Patient Records regulations: The Federal rules restrict any use of the information to criminally investigate or prosecute any alcohol or drug abuse patient.[facility] HospitalIn the event this information is protected by the Federal Confidentiality of Alcohol and Drug Abuse Patient Records regulations: The Federal rules restrict any use of the information to criminally investigate or prosecute any alcohol or drug abuse patient.[facility] HospitalIn the event this information is protected by the Federal Confidentiality of Alcohol and Drug Abuse Patient Records regulations: The Federal rules restrict any use of the information to criminally investigate or prosecute any alcohol or drug abuse patient.[facility] HospitalIn the event this information is protected by the Federal Confidentiality of Alcohol and Drug Abuse Patient Records regulations: The Federal rules restrict any use of the information to criminally investigate or prosecute any alcohol or drug abuse patient.[facility] HospitalIn the event this information is protected by the Federal Confidentiality of Alcohol and Drug Abuse Patient Records regulations: The Federal rules restrict any use of the information to criminally investigate or prosecute any alcohol or drug abuse patient.[facility] HospitalIn the event this information is protected by the Federal Confidentiality of Alcohol and Drug Abuse Patient Records regulations: The Federal rules restrict any use of the information to criminally investigate or prosecute any alcohol or drug abuse patient.[facility] HospitalIn the event this information is protected by the Federal Confidentiality of Alcohol and Drug Abuse Patient Records regulations: The Federal rules restrict any use of the information to criminally investigate or prosecute any alcohol or drug abuse patient.[facility] HospitalIn the event this information is protected by the Federal Confidentiality of Alcohol and Drug Abuse Patient Records regulations: The Federal rules restrict any use of the information to criminally investigate or prosecute any alcohol or drug abuse patient.[facility] HospitalIn the event this information is protected by the Federal Confidentiality of Alcohol and Drug Abuse Patient Records regulations: The Federal rules restrict any use of the information to criminally investigate or prosecute any alcohol or drug abuse patient.[facility] HospitalIn the event this information is protected by the Federal Confidentiality of Alcohol and Drug Abuse Patient Records regulations: The Federal rules restrict any use of the information to criminally investigate or prosecute any alcohol or drug abuse patient.[facility] HospitalIn the event this information is protected by the Federal Confidentiality of Alcohol and Drug Abuse Patient Records regulations: The Federal rules restrict any use of the information to criminally investigate or prosecute any alcohol or drug abuse patient.[facility] HospitalIn the event this information is protected by the Federal Confidentiality of Alcohol and Drug Abuse Patient Records regulations: The Federal rules restrict any use of the information to criminally investigate or prosecute any alcohol or drug abuse patient.[facility] HospitalIn the event this information is protected by the Federal Confidentiality of Alcohol and Drug Abuse Patient Records regulations: The Federal rules restrict any use of the information to criminally investigate or prosecute any alcohol or drug abuse patient.[facility] HospitalIn the event this information is protected by the Federal Confidentiality of Alcohol and Drug Abuse Patient Records regulations: The Federal rules restrict any use of the information to criminally investigate or prosecute any alcohol or drug abuse patient.[facility] HospitalIn the event this information is protected by the Federal Confidentiality of Alcohol and Drug Abuse Patient Records regulations: The Federal rules restrict any use of the information to criminally investigate or prosecute any alcohol or drug abuse patient.[facility] HospitalIn the event this information is protected by the Federal Confidentiality of Alcohol and Drug Abuse Patient Records regulations: The Federal rules restrict any use of the information to criminally investigate or prosecute any alcohol or drug abuse patient.[facility] HospitalIn the event this information is protected by the Federal Confidentiality of Alcohol and Drug Abuse Patient Records regulations: The Federal rules restrict any use of the information to criminally investigate or prosecute any alcohol or drug abuse patient.[facility] HospitalIn the event this information is protected by the Federal Confidentiality of Alcohol and Drug Abuse Patient Records regulations: The Federal rules restrict any use of the information to criminally investigate or prosecute any alcohol or drug abuse patient.[facility] HospitalIn the event this information is protected by the Federal Confidentiality of Alcohol and Drug Abuse Patient Records regulations: The Federal rules restrict any use of the information to criminally investigate or prosecute any alcohol or drug abuse patient.[facility] HospitalIn the event this information is protected by the Federal Confidentiality of Alcohol and Drug Abuse Patient Records regulations: The Federal rules restrict any use of the information to criminally investigate or prosecute any alcohol or drug abuse patient.[facility] HospitalIn the event this information is protected by the Federal Confidentiality of Alcohol and Drug Abuse Patient Records regulations: The Federal rules restrict any use of the information to criminally investigate or prosecute any alcohol or drug abuse patient.[facility] HospitalIn the event this information is protected by the Federal Confidentiality of Alcohol and Drug Abuse Patient Records regulations: The Federal rules restrict any use of the information to criminally investigate or prosecute any alcohol or drug abuse patient.[facility] HospitalIn the event this information is protected by the Federal Confidentiality of Alcohol and Drug Abuse Patient Records regulations: The Federal rules restrict any use of the information to criminally investigate or prosecute any alcohol or drug abuse patient.[facility] HospitalIn the event this information is protected by the Federal Confidentiality of Alcohol and Drug Abuse Patient Records regulations: The Federal rules restrict any use of the information to criminally investigate or prosecute any alcohol or drug abuse patient.[facility] HospitalIn the event this information is protected by the Federal Confidentiality of Alcohol and Drug Abuse Patient Records regulations: The Federal rules restrict any use of the information to criminally investigate or prosecute any alcohol or drug abuse patient.[facility] HospitalIn the event this information is protected by the Federal Confidentiality of Alcohol and Drug Abuse Patient Records regulations: The Federal rules restrict any use of the information to criminally investigate or prosecute any alcohol or drug abuse patient.[facility] HospitalIn the event this information is protected by the Federal Confidentiality of Alcohol and Drug Abuse Patient Records regulations: The Federal rules restrict any use of the information to criminally investigate or prosecute any alcohol or drug abuse patient.[facility] HospitalIn the event this information is protected by the Federal Confidentiality of Alcohol and Drug Abuse Patient Records regulations: The Federal rules restrict any use of the information to criminally investigate or prosecute any alcohol or drug abuse patient.[facility] HospitalIn the event this information is protected by the Federal Confidentiality of Alcohol and Drug Abuse Patient Records regulations: The Federal rules restrict any use of the information to criminally investigate or prosecute any alcohol or drug abuse patient.[facility] HospitalIn the event this information is protected by the Federal Confidentiality of Alcohol and Drug Abuse Patient Records regulations: The Federal rules restrict any use of the information to criminally investigate or prosecute any alcohol or drug abuse patient.[facility] HospitalIn the event this information is protected by the Federal Confidentiality of Alcohol and Drug Abuse Patient Records regulations: The Federal rules restrict any use of the information to criminally investigate or prosecute any alcohol or drug abuse patient.[facility] HospitalIn the event this information is protected by the Federal Confidentiality of Alcohol and Drug Abuse Patient Records regulations: The Federal rules restrict any use of the information to criminally investigate or prosecute any alcohol or drug abuse patient.[facility] HospitalIn the event this information is protected by the Federal Confidentiality of Alcohol and Drug Abuse Patient Records regulations: The Federal rules restrict any use of the information to criminally investigate or prosecute any alcohol or drug abuse patient.[facility] HospitalIn the event this information is protected by the Federal Confidentiality of Alcohol and Drug Abuse Patient Records regulations: The Federal rules restrict any use of the information to criminally investigate or prosecute any alcohol or drug abuse patient.[facility] HospitalIn the event this information is protected by the Federal Confidentiality of Alcohol and Drug Abuse Patient Records regulations: The Federal rules restrict any use of the information to criminally investigate or prosecute any alcohol or drug abuse patient.[facility] HospitalIn the event this information is protected by the Federal Confidentiality of Alcohol and Drug Abuse Patient Records regulations: The Federal rules restrict any use of the information to criminally investigate or prosecute any alcohol or drug abuse patient.[facility] HospitalIn the event this information is protected by the Federal Confidentiality of Alcohol and Drug Abuse Patient Records regulations: The Federal rules restrict any use of the information to criminally investigate or prosecute any alcohol or drug abuse patient.[facility] HospitalIn the event this information is protected by the Federal Confidentiality of Alcohol and Drug Abuse Patient Records regulations: The Federal rules restrict any use of the information to criminally investigate or prosecute any alcohol or drug abuse patient.[facility] HospitalIn the event this information is protected by the Federal Confidentiality of Alcohol and Drug Abuse Patient Records regulations: The Federal rules restrict any use of the information to criminally investigate or prosecute any alcohol or drug abuse patient.[facility] HospitalIn the event this information is protected by the Federal Confidentiality of Alcohol and Drug Abuse Patient Records regulations: The Federal rules restrict any use of the information to criminally investigate or prosecute any alcohol or drug abuse patient.[facility] HospitalIn the event this information is protected by the Federal Confidentiality of Alcohol and Drug Abuse Patient Records regulations: The Federal rules restrict any use of the information to criminally investigate or prosecute any alcohol or drug abuse patient.[facility] HospitalIn the event this information is protected [...] prosecute any alcohol or drug abuse patient.[facility] HospitalIn the event this information is protected by the Federal Confidentiality of Alcohol and Drug Abuse Patient Records regulations: The Federal rules restrict any use of the information to criminally investigate or prosecute any alcohol or drug abuse patient.[facility] HospitalIn the event this information is protected by the Federal Confidentiality of Alcohol and Drug Abuse Patient Records regulations: The Federal rules restrict any use of the information to criminally investigate or prosecute any alcohol or drug abuse patient.[facility] HospitalIn the event this information is protected by the Federal Confidentiality of Alcohol and Drug Abuse Patient Records regulations: The Federal rules restrict any use of the information to criminally investigate or prosecute any alcohol or drug abuse patient.[facility] HospitalIn the event this information is protected by the Federal Confidentiality of Alcohol and Drug Abuse Patient Records regulations: The Federal rules restrict any use of the information to criminally investigate or prosecute any alcohol or drug abuse patient.[facility] HospitalIn the event this information is protected by the Federal Confidentiality of Alcohol and Drug Abuse Patient Records regulations: The Federal rules restrict any use of the information to criminally investigate or prosecute any alcohol or drug abuse patient.[facility] HospitalIn the event this information is protected by the Federal Confidentiality of Alcohol and Drug Abuse Patient Records regulations: The Federal rules restrict any use of the information to criminally investigate or prosecute any alcohol or drug abuse patient.[facility] HospitalIn the event this information is protected by the Federal Confidentiality of Alcohol and Drug Abuse Patient Records regulations: The Federal rules restrict any use of the information to criminally investigate or prosecute any alcohol or drug abuse patient.[facility] HospitalIn the event this information is protected by the Federal Confidentiality of Alcohol and Drug Abuse Patient Records regulations: The Federal rules restrict any use of the information to criminally investigate or prosecute any alcohol or drug abuse patient.[facility] HospitalIn the event this information is protected by the Federal Confidentiality of Alcohol and Drug Abuse Patient Records regulations: The Federal rules restrict any use of the information to criminally investigate or prosecute any alcohol or drug abuse patient.[facility] HospitalIn the event this information is protected by the Federal Confidentiality of Alcohol and Drug Abuse Patient Records regulations: The Federal rules restrict any use of the information to criminally investigate or prosecute any alcohol or drug abuse patient.[facility] HospitalIn the event this information is protected by the Federal Confidentiality of Alcohol and Drug Abuse Patient Records regulations: The Federal rules restrict any use of the information to criminally investigate or prosecute any alcohol or drug abuse patient.[facility] HospitalIn the event this information is protected by the Federal Confidentiality of Alcohol and Drug Abuse Patient Records regulations: The Federal rules restrict any use of the information to criminally investigate or prosecute any alcohol or drug abuse patient.[facility] Reason for Visit (unrecogniz ed section and content) Reason Comments [employer] form Linda Reason Onset Date Comments Care 07/20/2021 Reason Comments US Specialty Diagnoses / Procedures Referred By Ana dennis Referred To Contact [facility] Diagnoses 11 weeks gestation of History of gestational diabetes in prior , currently Hx of preeclampsia, prior , currently Encounter for supervision of other normal in first trimester Procedures OBSTETRIC ULTRASOUND WHI US PREG UTERUS AFTER 1ST TRIMEST GESTATION Dante Waite MD [address] [place] [address] [facility] [address] [place] [address] Referral ID Status Reason Start Date Expiration Date V isits Requested Visits Authorized [id number] Closed Auto-Generate d Referral 06/26/2021 06/26/2022 1 [...] Referred By Ana t Referred To Contact [facility] Diagnoses Diet controlled gestational diabetes mellitus (GDM) in third trimester 32 weeks gestation of Supervision of other high risk pregnancies, third trimester Procedures OBSTETRIC ULTRASOUND WHI US PREG UTERUS AFTER 1ST TRIMEST GESTATION Dante Waite MD [address] [place] [address] [address] Referral ID Status Reason Start Date Expiration Date V isits Requested Visits Authorized [id number] Closed Auto-Generate d Referral 11/20/2021 11/20/2022 1 [...] Referred By Ana dennis Referred To Contact [facility] Diagnoses Encounter for supervision of normal in multigravida Hx of preeclampsia, prior , currently 9 weeks gestation of Procedures OBSTETRIC ULTRASOUND WHI US PREG UTERUS AFTER 1ST TRIMEST GESTATION Dante Waite MD [address] [place] [address] Phone: tel: fax: [address] [address] Referral ID Status Reason Start Date Expiration Date V isits Requested Visits Authorized [id number] Closed Auto-Generate d Referral 05/04/2024 05/04/2025 1 [...] Care Teams (unrecognized sec tion and content) Cook Pie Relationship Specialty Start Date End Date Min Bermeo, DO PCP - General Genetics 03/28/11 Cook Pie Relationship Specialty Start Date End Date Min Bermeo, DO PCP - General Genetics 03/28/11 Cook Pie Relationship Specialty Start Date End Date Min Bermeo, DO PCP - General Genetics 03/28/11 Cook Pie Relationship Specialty Start Date End Date Min Bermeo, DO PCP - General Genetics 03/28/11 Cook Pie Relationship Specialty Start Date End Date Min Bermeo, DO PCP - General Genetics 03/28/11 Cook Pie Relationship Specialty Start Date End Date Min Bermeo, DO PCP - General Genetics 03/28/11 Cook Pie Relationship Specialty Start Date End Date Min Bermeo, DO PCP - General Genetics 03/28/11 Cook Pie Relationship Specialty Start Date End Date Min Bermeo, DO PCP - General Genetics 03/28/11 Cook Pie Relationship Specialty Start Date End Date Min Bermeo, DO PCP - General Genetics 03/28/11 Cook Pie Relationship Specialty Start Date End Date Min Bermeo, DO PCP - General Genetics 03/28/11 Cook Pie Relationship Specialty Start Date End Date Min Bermeo, DO PCP - General Genetics 03/28/11 Cook Pie Relationship Specialty Start Date End Date Min Bermeo, DO PCP - General Genetics 03/28/11 Cook Pie Relationship Specialty Start Date End Date Min Bermeo, DO PCP - General Genetics 03/28/11 Cook Pie Relationship Specialty Start Date End Date Min Bermeo, DO PCP - General Genetics 03/28/11 Cook Pie Relationship Specialty Start Date End Date Min Bermeo, DO PCP - General Genetics 03/28/11 Team Status: Active Member Role Status Dates Dr. Kathy Vyas MD Primary Care Provider Active Team Status: Inactive Member Role Status Dates Dr. Kathy Vyas MD Primary Care Provider Active Dr. Leonel Zelaya MD Emergency Provider Active Cook Pie Relationship Specialty Start Date End Date Kathy Vyas MD [address] [place] [address] PCP - General Family Medicine 09/16/22 Cook Pie Relationship Specialty Start Date End Date Kathy Vyas MD [address] [place] [address] PCP - General Family Medicine 09/16/22 Cook Pie Relationship Specialty Start Date End Date Kathy Vyas MD [address] [place] [address] PCP - General Family Medicine 09/16/22 Cook Pie Relationship Specialty Start Date End Date Kathy Vyas MD [address] [place] [address] PCP - General Family Medicine 09/16/22 Cook Pie Relationship Specialty Start Date End Date Kathy Vyas MD [address] [place] [address] PCP - General Family Medicine 09/16/22 Cook Pie Relationship Specialty Start Date End Date Kathy Vyas MD [address] [place] [address] PCP - General Family Medicine 09/16/22 Cook Pie Relationship Specialty Start Date End Date Kathy Vyas MD [address] [place] [address] PCP - General Family Medicine 09/16/22 Cook Pie Relationship Specialty Start Date End Date Kathy Vyas MD [address] [place] [address] PCP - General Family Medicine 09/16/22 Cook Pie Relationship Specialty Start Date End Date Kathy Vyas MD [address] [place] [address] PCP - General Family Medicine 09/16/22 Cook Pie Relationship Specialty Start Date End Date Kathy Vyas MD [address] [place] [address] PCP - General Family Medicine 09/16/22 Cook Pie Relationship Specialty Start Date End Date Kathy Vyas MD [address] [place] [address] PCP - General Family Medicine 09/16/22 Cook Pie Relationship Specialty Start Date End Date Kathy Vyas MD [address] [place] [address] PCP - General Family Medicine 09/16/22 Cook Pie Relationship Specialty Start Date End Date Kathy Vyas MD [address] [place] [address] PCP - General Family Medicine 09/16/22 Cook Pie Relationship Specialty Start Date End Date Kathy Vyas MD [address] [place] [address] PCP - General Family Medicine 09/16/22 Cook Pie Relationship Specialty Start Date End Date Kathy Vyas MD [address] [place] [address] PCP - General Family Medicine 09/16/22 Cook Pie Relationship Specialty Start Date End Date Kathy Vyas MD [address] [place] [address] PCP - General Family Medicine 09/16/22 Cook Pie Relationship Specialty Start Date End Date Kathy Vyas MD [address] [place] [address] PCP - General Family Medicine 09/16/22 Cook Pie Relationship Specialty Start Date End Date Kathy Vyas MD [address] [place] [address] PCP - General Family Medicine 09/16/22 Cook Pie Relationship Specialty Start Date End Date Kathy Vyas MD [address] [place] [address] PCP - General Family Medicine 09/16/22 Cook Pie Relationship Specialty Start Date End Date Kathy Vyas MD [address] [place] [address] PCP - General Family Medicine 09/16/22 Cook Pie Relationship Specialty Start Date End Date Kathy Vyas MD [address] [place], [place] [id number] PCP - General Family Medicine 09/16/22 Cook Pie Relationship Specialty Start Date End Date Kathy Vyas MD [address] [place], [place] [id number] PCP - General Family Medicine 09/16/22 Team [...] November 15, 2024 End: November 15, 2024 Cook Pie Relationship Specialty Start Date End Date Kathy Vyas MD [address] [place] [address] PCP - General Family Medicine 09/16/22 Cook Pie Relationship Specialty Start Date End Date Kathy Vyas MD [address] [place] [address] PCP - General Family Medicine 09/16/22 Cook Pie Relationship Specialty Start Date End Date Kathy Vyas MD [address] [place], [place] [id number] PCP - General Family Medicine 09/16/22 Cook Pie Relationship Specialty Start Date End Date Kathy Vyas MD [address] [place] [address] PCP - General Family Medicine 09/16/22 Goals (unrecognized section and content) Goals may be documented in a n alternate sectionGoals may be documented in an alternate sectionGoals may be documented in an alternate section INFORMATION SOURCE (unrecogn ized section and content) DATE CREATED AUTHOR 11/23/2024 [facility] DATE CREATED AUTHOR AUTHOR'S ORGANIZ ATION 11/26/2024 [facility] FOR RECORDS PERTAINING TO PATIENTS WHO [...] BE BASED ON THE PRIMARY CLINICAL RECORDS. [facility] [employer] [facility]. provides no warranty or guarantee of the accuracy or completeness of information in this document.
[2024-11-28] MEDS: morphine PF 10 MG/10 ML Ampul IV (10:47)
[2024-11-28] MEDS: Cefazolin 1 GM/5 ML Vial 2 GM IV (10:51)
--- NOTE | 2024-11-28 11:32 | OP.PCM_ITS ---
Assessment & Plan (1) S/P : Maternal Data Information Final EDIL: 12/04/24 Gestational age: 39+1 Operative Report (OB) Details Procedure Type: low transverse Date of Procedure: 12/04/24 Procedure Start Time: 10:59 Procedure Stop Time: 11:31 Time of Delivery: 11:03 Pre-Operative Diagnosis: Breech Post-Operative Diagnosis: Same as Pre-operative diagnosis Classification: NIMCO Type of Anesthesia: Spinal Antibiotic Given: Ancef 2 grams IV x1 Drain: High to straight drain Estimated Blood Loss: 500 cc Fluids Replaced: 1000 cc Findings Description of surgery: Patient taken to the OR with spinal and High were placed. She was prepped and draped in the normal sterile fashion. A Pfannenstiel incision was made and carried down to the underlying fascia. The fascia was incised in the midline and extended laterally. The fascia was dissected from the muscle. The muscles divided in the midline. The peritoneum was entered bluntly and extended manually. A bladder blade was placed. A bladder flap was created. A low transverse incision was made and extended bluntly. The hips were elevated to the incision. The body and head delivered easily. The infant cried upon delivery. The cord was cut and clamped. The the cord evulsed from the placenta and the placenta was delivered manually. The uterus was exteriorized and cleared of all clot and debris. The incision was repaired with 1-0 Vicryl x 2. The uterus was returned the abdomen. The gutters were cleared of all clots. The peritoneum was closed with 2-0 Monocryl. The fascia was closed with 1-0 Vicryl. The subcutaneous tissue was reapproximated with 2-0 Monocryl The skin was closed with 4-0. I performed the major parts of the procedure with the RFNA assisting with retraction and closing the skin. The sponge lap and needle count was correct x 2 Surgical findings: breech presentation Presentation: Complete Breech Amniotic Membrane Rupture Type: Artificial Amniotic Fluid Description: Clear Placental Delivery Description: Manual Removal Placenta Disposition: [facility] Specimen collected: No Cord Vessel Description: 3 Vessels Cord Entanglement: None Infant A gender: Female (1 minute): 8 (5 minute): 9 Delayed Cord Clamping: No Ethylene Oxide Panelboard Operator millinery salesperson: Yes Storage Solutions Architect: Sandra Case Tasks completed by gallery assistant: Opening & closing and Retracting Complications Complications: No
[2024-11-28] MEDS: Lactated Ringers 1,000 ML 100 ML IV ×2 (12:00→22:40)
[2024-11-28] MEDS: Oxytocin 15 Units/NS 250ml 15 UNITS/250 ML IV.SOLN 83 UNITS IV (12:00)
[2024-11-28 12:04] LABS: Syphilis Antibodies Nonreactive (Nonreactive)
[2024-11-28] MEDS: Ketorolac 30 MG/ML Syringe IV ×2 (13:12→18:38)
[2024-11-29] VITALS (10 sets, daily range): BP systolic 104–135; BP diastolic 69–91; PULSE 66–75; RESP 16–18; TEMP 36.6–37; O2SAT 98–100
[2024-11-29] MEDS: Ketorolac 30 MG/ML Syringe IV ×2 (00:29→06:20)
[2024-11-29] MEDS: 0.9% Saline Lock 10 ML Syringe IV ×2 (00:30→06:20)
--- NOTE | 2024-11-29 06:23 | PN.OBGYN_ITS ---
Subjective Subjective Doing well. Ambulating and voiding without difficulty. Mild lochia. Breast feeding. Objective Data Objective Data Vital Signs: Vital Signs Temp Pulse Resp BP Pulse Ox O2 Del Method 98.2 F 70 16 106/69 100 Room Air 11/29/24 03:13 11/29/24 03:13 11/29/24 03:13 11/29/24 03:13 11/29/24 03:13 11/29/24 03:13 Oxygen Delivery Method Room Air Weight: 90.265 kg Body Mass Index (BMI) 32.1 Intake & Output: Intake and Output for Last 24 Hours 11/27/24 11/28/24 11/29/24 23:59 23:59 23:59 Intake Total 2250 / 2250 Output Total 900 / 900 Balance 1350 / 1350 Lab / Micro Data 11/29/24 06:15 Labs: Laboratory Results - last 24 hr 11/28/24 09:40: WBC 10.5, RBC 4.24, Hgb 11.9 L, Hct 35.5 L, MCV 83.7, MCH 28.1, MCHC 33.5, RDW Std Deviation 51.0 H, RDW Coeff of Robert 16.8 H, Plt Count 302, MPV 9.8, Immature Gran % (Auto) 0.500, Neut % (Auto) 71.5 H, Lymph % (Auto) 19.6, Crenshaw % (Auto) 7.1, Eos % (Auto) 0.9, Baso % (Auto) 0.4, Absolute Neuts (auto) 7.5, Absolute Lymphs (auto) 2.06, Nucleated RBC % 0, Syphilis Total Ab Nonreactive, Blood Type A POSITIVE, Antibody Screen NEGATIVE ROS Constitutional Constitutional: Denies headache(s) Cardiovascular Cardiovascular: Denies chest pain or dyspnea Gastrointestinal Gastrointestinal: Denies nausea or vomiting Genitourinary Genitourinary: Denies dysuria Physical Exam Const alert, oriented x3 and no apparent distress General Appearance: cooperative and comfortable Eyes PERRL and EOMs intact bilaterally Resp normal respiratory effort GI soft to palpation and non-tender GI Narrative: soft, moderate distention, fundus firm, appropriately tender. Abdominal bandage clean dry and intact Uterus Palpation: uterus fundus firm ( below umbilicus) Extremity normal to inspection and full ROM Neuro oriented x3 and CN's II-XII intact bilaterally Psych mental status grossly normal Assessment & Plan (1) S/P : PLAN: Plan Routine care Breast feeding
[2024-11-29 06:31] LABS: Hematocrit 32.3 % (37-47); Hemoglobin 10.6 g/dL (12.0-15.0); Mean Corp Hgb Conc 32.8 g/dL (32-36); Mean Corpuscular Volume 86.8 fL (81-99); Mean Platelet Vol. 10.0 fl (6.2-12.0); Platelet Count 224 K/mm3 (150-450); RBC Distribution Width CV 17.4 % (11.6-14.6); RBC Distribution Width SD 54.7 fl (35.1-43.9); Red Blood Count 3.72 M/mm3 (4.2-5.4); White Blood Count 10.5 K/mm3 (4.4-11.0)
[2024-11-29] MEDS: Senna/Docusate Sodium 1 Tablet PO (10:35)
[2024-11-30 01:04] VITALS: BP 127/78; PULSE 81; RESP 16; TEMP 36.6; O2SAT 99
--- NOTE | 2024-11-30 08:54 | PCM.PN.OB ---
Subjective Subjective Denies complaints Objective Data Objective Data Vital Signs: Vital Signs Temp Pulse Resp BP Pulse Ox O2 Del Method 98 F 81 16 127/78 H 99 Room Air 11/30/24 01:04 11/30/24 01:04 11/30/24 01:04 11/30/24 01:04 11/30/24 01:04 11/30/24 01:04 Oxygen Delivery Method Room Air Weight: 199 lb Body Mass Index (BMI) 32.1 Intake & Output: Intake and Output for Last 24 Hours 11/28/24 11/29/24 11/30/24 23:59 23:59 23:59 Intake Total 2250 / 2250 241.67 / 241.67 Output Total 1500 / 1800 950 / 950 Balance 750 / 450 -708.33 / -708.33 Lab / Micro Data 11/29/24 06:15 Physical Exam Const alert, oriented x3 and no apparent distress HEENT normocephalic GI soft to palpation, non-tender and non-distended GI Narrative: fundus firm, mid & below umbilicus Incision - bandage c/d/i Extremity normal to inspection and no calf tenderness Assessment & Plan (1) S/P : PLAN: Plan D/c to home
--- NOTE | 2024-11-30 08:55 | PCM.DC.SUM ---
Providers Date of Admission: 11/28/24 Primary Care Physician: Dr. 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 Plan D/c to home Medications at Discharge Home Medications vit no.95-ferrous fumarate 28 mg-folic acid 800 mcg tablet () 1 tab PO DAILY 11/15/24 acetaminophen 500 mg tablet 1,000 mg (2 x 500 mg) PO Q6H #0 tabs 11/30/24 ibuprofen 600 mg tablet 600 mg PO Q6H #0 tabs 11/30/24 Hospital Course Operations section Procedures None Summary of Care Provided Minutes Spent on Discharge: 20 Weight / BMI Weight Weight: 199 lb Body Mass Index (BMI) 32.1 ABG / Lab / Microbiology Data 11/29/24 06:15 D/C Instructions Discharge Activity: May Shower May resume sexual activity in: 6 weeks Weight Bearing Status: Weight bearing as tolerated Call your doctor if your incision/area has: Continuous Slow Oozing, Sudden Increased Bleeding, Increased Pain/ Swelling, Increased Redness, Foul Smelling Discharge and Swelling at the incision site Call your doctor if you observe: Fever of 101 or Higher, Coldness, Increased Pain, Change in Color, Inability to urinate, Inability to have a bowel movement, Using more than 1 pad per hour, Shortness of breath, Dizziness, Fainting spells, Chest pain, Increased palpitations (irregular heartbeat), Calf discomfort and Uncontrolled pain Suture Line Care: Avoid Pulling/Pushing and Avoid Pinching/Bending Remove Dressing in: 1 week Cleanse incision/area with: Soap & Water DC O2, CPAP, BIPAP Needs Home O2 Discharge instructions: No Please Follow Up With: Alban Hooker MD When: Follow up in 2 and 6 weeks for visits. Meaningful Use Info Meaningful Use Meaningful Use Diagnoses (Choose all that apply): None applicable Discharge Plan Admission Admit Date/Time: 11/28/24 09:29 Primary Reason for Your Visit: section Attending Provider: Mare Winters Primary Care Provider: Kathy Vyas Discharge Orders/Prescriptions Prescriptions: New acetaminophen 500 mg Tablet 1,000 mg PO Q6H Qty: 0 0RF ibuprofen 600 mg Tablet 600 mg PO Q6H Qty: 0 0RF Continued PNV cmb#95-ferrous fumarate-FA [] 28 mg iron- 800 mcg tablet 1 tab PO DAILY Discontinued aspirin 81 mg tablet 81 mg PO DAILY ferrous sulfate [Feosol] 325 mg (65 mg iron) tablet 325 mg PO DAILY Referrals / Follow Up: Kathy Vyas MD [Primary Care Provider] - Disposition Disposition (needs filled in before D/C Order can be placed): Home, Self Care
[2024-11-30] MEDS: Senna/Docusate Sodium 1 Tablet PO (08:59)
[2024-11-30 09:00] VITALS: BP 129/85; PULSE 70; RESP 16; TEMP 36.7; O2SAT 99
== END 2024-11-30 11:10 | disposition home or self-care (01) | DRG 788 ==
LOC: WPOUT 09:35 → WP 09:54
PROVIDERS: Admitting Provider Obstetrics & Gynecology; PCP Family Medicine; Visit Provider Obstetrics & Gynecology
DX: O32.1XX0 Maternal care for breech presentation, not applicable or unspecified (principal); Z37.0 Single live birth; Z3A.39 39 weeks gestation of pregnancy; Z86.32 Personal history of gestational diabetes; Z87.59 Personal history of other complications of pregnancy, childbirth and the puerperium
CPT/HCPCS: 59025; 59050; 85025; 85027; 86780; 86850; 86900; 86901; 99221; A4216; G0378; J2405